=== PATIENT | male | born 1940 | race Caucasian/White ===

== ENCOUNTER → 2018-02-12 10:03 | Outpatient (CLI) | payer BC, SELFPAY ==
--- NOTE | 2018-02-12 10:08 | ECHOTEE_ITS ---
Reason For Study: Aortic Stenosis Medication MARY probe passed without difficulty. No complications were noted. [id number] gargled and swallowed. Cetacaine Topical [place] given X2 orally. Versed 2 mg given slow IVP. Fentanyl 25 mcg given slow IVP. Performed a rapid injection of agitated mix of 9 cc saline and 1cc air to assess for atrial septal defect. Left Ventricle Mild concentric left ventricular hypertrophy. The estimated ejection fraction is 65 %. Stage 1 diastolic dysfunction. No regional wall motion abnormalities noted. Right Ventricle Normal size and thickness. The right ventricular wall motion is normal. Atria Normal atrial septum. Bubble contrast study negative for right to left interatrial shunt. Normal left atrium. No thrombus is detected in the left atrial appendage. Normal right atrium. Mitral Valve Mild diffuse mitral valve thickening. Mild (1+) posteriorly directed mitral valve insufficiency. Tricuspid Valve Normal tricuspid valve. Trivial tricuspid valve insufficiency. Unable to estimate RV systolic pressure/pulmonary artery pressure due to technically difficult study. Aortic Valve Trisinus/trileaflet aortic valve. Severe focal aortic valve thickening. Moderate focal aortic valve calcification. Severe restriction of the aortic valve. Severe aortic stenosis. Peak aortic valve gradient 61 mmHg. Mean aortic valve gradient 37 mmHg. Trivial aortic valve insufficiency. Pulmonic Valve Normal pulmonic valve. Vessels Calcified aortic root. Mild atherosclerosis of the aortic arch. The pulmonary artery is normal size. Pulmonary venous flow normal. Doppler Measurements & Calculations MV E max rell: 88.8 cm/sec MV V2 max: 116.2 cm/sec Ao V2 max: 370.3 cm/sec MV max P.4 mmHg Ao V2 mean: 261.8 cm/sec MV V2 mean: 70.3 cm/sec Ao V2 VTI: 87.3 cm MV mean P.3 mmHg MV V2 VTI: 24.1 cm Interpretation Summary Mild concentric left ventricular hypertrophy. The estimated ejection fraction is 65 %. Stage 1 diastolic dysfunction. Bubble contrast study negative for right to left interatrial shunt. Mild (1+) posteriorly directed mitral valve insufficiency. Trivial tricuspid valve insufficiency. Unable to estimate RV systolic pressure/pulmonary artery pressure due to technically difficult study. Severe aortic stenosis. Peak aortic valve gradient 61 mmHg. Mean aortic valve gradient 37 mmHg. Trivial aortic valve insufficiency. No thrombus is detected in the left atrial appendage. Ordering Physician: Tanvir Lyles Referring Physician: Vidal Adams Performed By: Bonita Toney RDCS ??? Reason For Study: Aortic Stenosis Interpretation Summary Mild concentric left ventricular hypertrophy. The estimated ejection fraction is 65 %. Stage 1 diastolic dysfunction. Bubble contrast study negative for right to left interatrial shunt. Mild (1+) posteriorly directed mitral valve insufficiency. Trivial tricuspid valve insufficiency. Unable to estimate RV systolic pressure/pulmonary artery pressure due to technically difficult study. Severe aortic stenosis. Peak aortic valve gradient 61 mmHg. Mean aortic valve gradient 37 mmHg. Trivial aortic valve insufficiency. No thrombus is detected in the left atrial appendage. Ordering Physician: Tanvir Lyles Referring Physician: Vidal Adams Performed By: Bonita Toney RDCS
== END ==
PROVIDERS: Family Provider Family Medicine; PCP Family Medicine; Visit Provider Internal Medicine Cardiovascular Disease
DX: I35.0 Nonrheumatic aortic (valve) stenosis (principal); I25.10 Atherosclerotic heart disease of native coronary artery without angina pectoris; E78.5 Hyperlipidemia, unspecified
CPT/HCPCS: 93312; 93320; 93325; A4216; J2310

== ENCOUNTER 2018-03-07 14:31 | Emergency (ER) | payer BC, SELFPAY ==
[2018-03-07 14:33] VITALS: BP 160/82; PULSE 87; RESP 18; TEMP 36.6; O2SAT 94; BMI 25.6
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
--- NOTE | 2018-03-07 14:45 | RAD_ITS ---
STUDY: X-RAY - LEFT SHOULDER REASON FOR EXAM: Shoulder pain after a fall. TECHNIQUE: 4 view(s) of the shoulder. COMPARISON: None. FINDINGS: There is osteopenia. Normal glenohumeral articulation. Normal acromioclavicular joint. Normal acromion. There is a nondisplaced fracture of the distal clavicle. Normal humeral head and visualized proximal humerus. There is soft tissue swelling at the superior aspect of the shoulder. There is atelectasis or scarring left lung base. RAD/Shoulder min 2 Views IMPRESSION: Nondisplaced fracture of the distal clavicle. Electronically Signed: Brad Sampson MD at 15:48 EDT Tel , Service support ,
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
[2018-03-07 17:09] VITALS: PULSE 79; RESP 17; O2SAT 96
== END 2018-03-07 17:10 | disposition home or self-care (01) ==
PROVIDERS: Emergency Provider Emergency Medicine; Family Provider Family Medicine; PCP Family Medicine
DX: S42.035A Nondisplaced fracture of lateral end of left clavicle, initial encounter for closed fracture (principal); S01.81XA Laceration without foreign body of other part of head, initial encounter; S20.212A Contusion of left front wall of thorax, initial encounter; V19.3XXA Pedal cyclist (driver) (passenger) injured in unspecified nontraffic accident, initial encounter; Y93.55 Activity, bike riding; Y92.9 Unspecified place or not applicable; I25.10 Atherosclerotic heart disease of native coronary artery without angina pectoris; Z79.82 Long term (current) use of aspirin; Z79.899 Other long term (current) drug therapy
CPT/HCPCS: 71101; 72070; 73030; 99284

== ENCOUNTER → 2018-06-13 15:41 | Outpatient (CLI) | payer BC, SELFPAY ==
[2018-06-13 14:36] VITALS: BMI 24.4
[2018-06-13 16:15] LABS: Prothrombin Time (Protime)PT. 45.3 SECONDS (11.7-14.9)
[2018-06-13 16:28] LABS: International Normalized Ratio 4.8
== END ==
PROVIDERS: Family Provider Family Medicine; PCP Family Medicine; Referring Provider Internal Medicine Cardiovascular Disease; Visit Provider Internal Medicine Cardiovascular Disease
DX: I48.91 Unspecified atrial fibrillation (principal)
CPT/HCPCS: 36415; 85610

== ENCOUNTER 2018-06-23 08:06 | Outpatient (RCR) | payer BC, SELFPAY ==
[2018-06-13 14:36] VITALS: BMI 24.4
[2018-06-16 11:52] LABS: International Normalized Ratio 2.2; Prothrombin Time (Protime)PT. 24.8 SECONDS (11.7-14.9)
[2018-06-23 09:28] LABS: International Normalized Ratio 3.1; Prothrombin Time (Protime)PT. 32.5 SECONDS (11.7-14.9)
== END 2018-06-27 10:56 | disposition home or self-care (01) ==
LOC: LAB 08:06
PROVIDERS: Family Provider Family Medicine; PCP Family Medicine; Referring Provider Internal Medicine Cardiovascular Disease; Visit Provider Internal Medicine Cardiovascular Disease
DX: I48.91 Unspecified atrial fibrillation (principal)
CPT/HCPCS: 36415; 85610

== ENCOUNTER → 2018-07-02 08:46 | Outpatient (CLI) | payer BC, SELFPAY ==
[2018-06-13 14:36] VITALS: BMI 24.4
--- NOTE | 2018-07-02 08:54 | PCM.CR.HP2 ---
CR - History & Physical - General Arrival date:: 07/02/18 Arrival time:: 08:54 Date of Referral:: 06/13/18 Date of CR Evaluation:: 07/02/18 Referring Physician: Dr. Tanvir Lyles Primary Diagnosis: CABG, Valve replacement, Z95.1, Z95.2 - History of Present Cardiac Event Onset Date: Enter Onset Date of cardiac illnesses in Comment field below Current stable Angina Pectoris:: No Acute Myocardial Infarction within 12 months:: No Coronary Artery Bypass Graft:: Yes Heart valve replacement or repair:: Yes - Medications Home Medications: Ambulatory Orders Medication Instructions Recorded aspirin 81 mg tablet,delayed 81 mg PO QDAY 01/20/18 release acetaminophen 325 mg tablet 650 mg PO Q6H PRN tab 06/12/18 albuterol sulfate HFA 90 2 puff INHALATION Q6H PRN 06/12/18 mcg/actuation aerosol inhaler amiodarone 200 mg tablet 200 mg PO .COMPLEX 06/12/18 fluticasone 250 mcg-salmeterol 50 1 inh INHALATION BID 06/12/18 mcg/dose blistr powdr for inhalation multivitamin tablet 1 tab PO DAILY 06/12/18 sennosides 8.6 mg-docusate sodium 1 tab PO BID PRN 06/12/18 50 mg tablet furosemide 20 mg tablet 20 mg PO BID #180 tab 06/25/18 potassium chloride ER 10 mEq 10 meq PO DAILY #90 tab 06/25/18 tablet,extended release warfarin 5 mg tablet 5 mg PO .COMPLEX #90 tab 06/25/18 metoprolol tartrate 25 mg tablet 50 mg PO BID #180 tab 06/30/18 pantoprazole 20 mg tablet,delayed 20 mg PO DAILY #30 tab 06/30/18 release pravastatin 40 mg tablet 40 mg PO DAILY #90 tab 06/30/18 - Allergies Allergies/Adverse Reactions: Allergies atorvastatin Adverse Reaction (Verified 03/07/18 14:33) myalgias - Sleep Disorder Evaluation Hx of Sleep Apnea: No Do you snore loudly (louder than talking or can be heard through closed doors)?: No Do you often feel tired/ fatigued/ sleepy during daytime?: No Has anyone observed you stop breathing during sleep?: No History of Hypertension (for STOP score): Yes STOP Results: Negative Advanced Directives - Advanced Directives Power of Placement Assistant: No Living Will: Yes Advance Directives Information Provided: No Advance Directives on File: No DNR Order?:: No Past Medical History - Past Medical Illness Medical History: Past Medical History (Last Reviewed 06/13/18 @ 14:36 by Joan Charles) Tachy-raissa syndrome (Acute) Onset Date: 05/24/18 I49.5 Noted on discharge summary from [facility] after CABG and AVR Atelectasis (Acute) J98.11 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) I97.89, I48.91 History of aortic stenosis (Chronic) Z86.79 ROSA to LAD, reverse SVG to OM and PDA of RCA along with AVR using 25 Andrew Awan valve, per Dr. 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 Darrion Meyer, [facility] S/P CABG x 3 (Chronic) Onset Date: 05/22/18 Z95.1 ROSA to LAD, reverse SVG to OM and PDA of RCA along with AVR using 25 Andrew Awan valve, per Dr. Darrion Meyer, [facility] History of open reduction and internal fixation (ORIF) procedure Z98.890 RLE History of inguinal hernia repair Z98.890, Z87.19 History of left heart catheterization Onset Date: 09/18/17 Z98.890 LMT-30-40% ostial stenosis Mid LAD 60-70% stenosis Mid Cx 50% Stenosis RCA 100% WOOLEN TESTER after mid portion w/ left-right collaterals Social History - Smoking History Smoking Status: Former smoker Years Smokin Packs Smoked per Day: 0.5 Hx Smoking Cessation Date: 07/29/2009 Hx Tobacco Use: Yes Hx Smoking Exposure: Yes - Alcohol Use Alcohol Usage: No - Substance Abuse Hx Substance Use: No - Occupation Occupation (List type of work in comments):: Employed Hours worked per day:: 10 - Hobbies, Recreation, Social Activities Hobbies: Other - hunting Recreational Activities: I am able to engage in all my recreational activities Social Environment - Status Marital Status: - Current Living Arrangements Living Environment:: Family - Children Do any of your children live nearby?: Yes - Safety Do you feel safe in your surroundings?: Yes - Assistance Do you need any assistance at home?: none Review of Systems - Review of Systems Hints: Right click = Denies ([place]). Left click = Reports ([place]) Review of Present Symptoms: Reports: Shortness of Breath with Exertion, Appetite - Normal, Sleep - Normal. Denies: Shortness of Breath at Rest, PVD, Operative Discomfort, Angina, Wound Healing, Dizziness/Lightheadedness, Fatigue, Heart Arrhythmia/Irregularities, Appetite - Special Diet, Sexual Changes - Pain Is Patient Pain Free?: Yes Risk Factor Assessment - Chief Complaint Chief Complaint: CABG, Valve repair/replacement - Vital Signs Pulse Ox: 91 - Pulse Pulse Rate: 56 Pulse Rhythm: Regular - Hypertension How long have you been treated?: .5 Blood Pressure Sitting - Left Arm: 114/58 - Obesity Height: 1.7 m Weight:: 70.76 kg Weight in Pounds: 156.0 lbs Weight Source: Standing Scale Body Mass Index (BMI): 24.4 Nutritional Referral for Obesity: No - Physical Inactivity Physical Inactivity: Reg Exercise 30 min/day, Physically demanding job, Recreational activity, None - Risk Stratification Risk Guidelines: Lowest Risk: Risk Factor for Diabetes, Risk Factor for Obesity, Moderate Risk: Risk Factor for Smoking, Risk Factor for Dyslipidemia, Risk Factor for Diabetes, Risk Factor for Hypertension, Risk Factor for Sedentary Lifestyle, Risk Factor for Depression - For Smoking Smoking Risk Guidelines: Smoking Low Risk: None or quit greater than 6 months ago. Smoking Moderate Risk: Smoker or quit 6 months or less ago. Smoking High Risk: Smoker - For Dyslipidemia Dyslipidemia Risk Guidelines: Low Risk: Moderate Risk: High Risk: 15-25% fat 25.1-29% fat >/= 30% fat. <7% sat fat 7-9% sat fat >9% sat fat. <150 mg chol 150-299 mg chol >/= 300 mg chol. LDL <100 LDL 100-129 LDL >/= 130. Chol/HDL ratio <5.0 Chol/HDL ratio 5.0-6.0 Chol/HDL ratio >6.0. Triglycerides <100 Triglycerides 100-149 Triglycerides >/= 150 - For Diabetes Mellitus Diabetes Risk Guidelines: Diabetes Low Risk: HgA1c <6.5% and/or FBG <120. Diabetes Moderate Risk: HgA1c 6.6-7.9% and/or FBG 120-180. Diabetes High Risk: HgA1c >/= 8% and/or FBG >180 - For Obesity/Overweight Obesity/Overweight Risk Guidelines: Obesity Low Risk: BMI <25.0. Obesity Moderate Risk: BMI 25-29.9. Obesity High Risk: BMI >/= 30.0 - For Hypertension Hypertension Risk Guidelines: Hypertension Low Risk: Systolic <120 and Diastolic <80. Hypertension Moderate Risk: Systolic 120-139 and Diastolic 80-89. Hypertension High Risk: Systolic >/= 140 and Diastolic >/= 90 - For Sedentary Lifestyle Sedentary Lifestyle Risk Guidelines: Sedentary Lifestyle Low Risk: >/= 1,500 kcal/week. Sedentary Lifestyle Moderate Risk: 700-1,499 kcal/week. Sedentary Lifestyle High Risk: < 700 kcal/week - For Depression Depression Risk Guidelines: Depression Low Risk: Not clinically depressed. Depression Moderate Risk: Mildly depressed. Depression High Risk: Clinically depressed Motivation - Motivation to Participate On a scale of 1 to 10, how prepared are you to commit to attending program?: 8 What do you see as barriers to successfully being able to complete the program?: transportation What do you see as the benefits of succesfully completing the program? In other words, what do you hope to get out of participating in the program?: improved health Are there issues you are dealing with that will interfere with completing the program?: none Do you have a spouse or signficant other, family or friends who will help support you to complete the program?: yes
--- NOTE | 2018-07-02 08:58 | CR.HP_ITS ---
CR - History & Physical - General Arrival date:: 07/02/18 Arrival time:: 08:54 Date of Referral:: 06/13/18 Date of CR Evaluation:: 07/02/18 Referring Physician: Dr. Tanvir Lyles Primary Diagnosis: CABG, Valve replacement, Z95.1, Z95.2 - History of Present Cardiac Event Onset Date: Enter Onset Date of cardiac illnesses in Comment field below Current stable Angina Pectoris:: No Acute Myocardial Infarction within 12 months:: No Coronary Artery Bypass Graft:: Yes Heart valve replacement or repair:: Yes - Medications Home Medications: Ambulatory Orders Medication Instructions Recorded aspirin 81 mg tablet,delayed 81 mg PO QDAY 01/20/18 release acetaminophen 325 mg tablet 650 mg PO Q6H PRN tab 06/12/18 albuterol sulfate HFA 90 2 puff INHALATION Q6H PRN 06/12/18 mcg/actuation aerosol inhaler amiodarone 200 mg tablet 200 mg PO .COMPLEX 06/12/18 fluticasone 250 mcg-salmeterol 50 1 inh INHALATION BID 06/12/18 mcg/dose blistr powdr for inhalation multivitamin tablet 1 tab PO DAILY 06/12/18 sennosides 8.6 mg-docusate sodium 1 tab PO BID PRN 06/12/18 50 mg tablet furosemide 20 mg tablet 20 mg PO BID #180 tab 06/25/18 potassium chloride ER 10 mEq 10 meq PO DAILY #90 tab 06/25/18 tablet,extended release warfarin 5 mg tablet 5 mg PO .COMPLEX #90 tab 06/25/18 metoprolol tartrate 25 mg tablet 50 mg PO BID #180 tab 06/30/18 pantoprazole 20 mg tablet,delayed 20 mg PO DAILY #30 tab 06/30/18 release pravastatin 40 mg tablet 40 mg PO DAILY #90 tab 06/30/18 - Allergies Allergies/Adverse Reactions: Allergies atorvastatin Adverse Reaction (Verified 03/07/18 14:33) myalgias - Sleep Disorder Evaluation Hx of Sleep Apnea: No Do you snore loudly (louder than talking or can be heard through closed doors)?: No Do you often feel tired/ fatigued/ sleepy during daytime?: No Has anyone observed you stop breathing during sleep?: No History of Hypertension (for STOP score): Yes STOP Results: Negative Advanced Directives - Advanced Directives Power of Automotive Artist: No Living Will: Yes Advance Directives Information Provided: No Advance Directives on File: No DNR Order?:: No Past Medical History - Past Medical Illness Medical History: Past Medical History (Last Reviewed 06/13/18 @ 14:36 by Joan Charles) Tachy-raissa syndrome (Acute) Onset Date: 05/24/18 I49.5 Noted on discharge summary from [facility] after CABG and AVR Atelectasis (Acute) J98.11 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) I97.89, I48.91 History of aortic stenosis (Chronic) Z86.79 ROSA to LAD, reverse SVG to OM and PDA of RCA along with AVR using 25 Andrew Awan valve, per Dr. 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 Darrion Meyer, [facility] S/P CABG x 3 (Chronic) Onset Date: 05/22/18 Z95.1 ROSA to LAD, reverse SVG to OM and PDA of RCA along with AVR using 25 Andrew Awan valve, per Dr. Darrion Meyer, [facility] History of open reduction and internal fixation (ORIF) procedure Z98.890 RLE History of inguinal hernia repair Z98.890, Z87.19 History of left heart catheterization Onset Date: 09/18/17 Z98.890 LMT-30-40% ostial stenosis Mid LAD 60-70% stenosis Mid Cx 50% Stenosis RCA 100% [employer] WORK[employer] after mid portion w/ left-right collaterals Social History - Smoking History Smoking Status: Former smoker Years Smokin Packs Smoked per Day: 0.5 Hx Smoking Cessation Date: 07/29/2009 Hx Tobacco Use: Yes Hx Smoking Exposure: Yes - Alcohol Use Alcohol Usage: No - Substance Abuse Hx Substance Use: No - Occupation Occupation (List type of work in comments):: Employed Hours worked per day:: 10 - Hobbies, Recreation, Social Activities Hobbies: Other - hunting Recreational Activities: I am able to engage in all my recreational activities Social Environment - Status Marital Status: - Current Living Arrangements Living Environment:: Family - Children Do any of your children live nearby?: Yes - Safety Do you feel safe in your surroundings?: Yes - Assistance Do you need any assistance at home?: none Review of Systems - Review of Systems Hints: Right click = Denies ([place]). Left click = Reports ([place]) Review of Present Symptoms: Reports: Shortness of Breath with Exertion, Appetite - Normal, Sleep - Normal. Denies: Shortness of Breath at Rest, PVD, Operative Discomfort, Angina, Wound Healing, Dizziness/Lightheadedness, Fatigue, Heart Arrhythmia/Irregularities, Appetite - Special Diet, Sexual Changes - Pain Is Patient Pain Free?: Yes Risk Factor Assessment - Chief Complaint Chief Complaint: CABG, Valve repair/replacement - Vital Signs Pulse Ox: 91 - Pulse Pulse Rate: 56 Pulse Rhythm: Regular - Hypertension How long have you been treated?: .5 Blood Pressure Sitting - Left Arm: 114/58 - Obesity Height: 1.7 m Weight:: 70.76 kg Weight in Pounds: 156.0 lbs Weight Source: Standing Scale Body Mass Index (BMI): 24.4 Nutritional Referral for Obesity: No - Physical Inactivity Physical Inactivity: Reg Exercise 30 min/day, Physically demanding job, Recreational activity, None - Risk Stratification Risk Guidelines: Lowest Risk: Risk Factor for Diabetes, Risk Factor for Obesity, Moderate Risk: Risk Factor for Smoking, Risk Factor for Dyslipidemia, Risk Factor for Diabetes, Risk Factor for Hypertension, Risk Factor for Sedentary Lifestyle, Risk Factor for Depression - For Smoking Smoking Risk Guidelines: Smoking Low Risk: None or quit greater than 6 months ago. Smoking Moderate Risk: Smoker or quit 6 months or less ago. Smoking High Risk: Smoker - For Dyslipidemia Dyslipidemia Risk Guidelines: Low Risk: Moderate Risk: High Risk: 15-25% fat 25.1-29% fat >/= 30% fat. <7% sat fat 7-9% sat fat >9% sat fat. <150 mg chol 150-299 mg chol >/= 300 mg chol. LDL <100 LDL 100-129 LDL >/= 130. Chol/HDL ratio <5.0 Chol/HDL ratio 5.0-6.0 Chol/HDL ratio >6.0. Triglycerides <100 Triglycerides 100-149 Triglycerides >/= 150 - For Diabetes Mellitus Diabetes Risk Guidelines: Diabetes Low Risk: HgA1c <6.5% and/or FBG <120. Diabetes Moderate Risk: HgA1c 6.6-7.9% and/or FBG 120-180. Diabetes High Risk: HgA1c >/= 8% and/or FBG >180 - For Obesity/Overweight Obesity/Overweight Risk Guidelines: Obesity Low Risk: BMI <25.0. Obesity Moderate Risk: BMI 25-29.9. Obesity High Risk: BMI >/= 30.0 - For Hypertension Hypertension Risk Guidelines: Hypertension Low Risk: Systolic <120 and Diastolic <80. Hypertension Moderate Risk: Systolic 120-139 and Diastolic 80-89. Hypertension High Risk: Systolic >/= 140 and Diastolic >/= 90 - For Sedentary Lifestyle Sedentary Lifestyle Risk Guidelines: Sedentary Lifestyle Low Risk: >/= 1,500 kcal/week. Sedentary Lifestyle Moderate Risk: 700-1,499 kcal/week. Sedentary Lifestyle High Risk: < 700 kcal/week - For Depression Depression Risk Guidelines: Depression Low Risk: Not clinically depressed. Depression Moderate Risk: Mildly depressed. Depression High Risk: Clinically depressed Motivation - Motivation to Participate On a scale of 1 to 10, how prepared are you to commit to attending program?: 8 What do you see as barriers to successfully being able to complete the program?: transportation What do you see as the benefits of succesfully completing the program? In other words, what do you hope to get out of participating in the program?: improved health Are there issues you are dealing with that will interfere with completing the program?: none Do you have a spouse or signficant other, family or friends who will help support you to complete the program?: yes
--- NOTE | 2018-07-02 09:02 | CR.ITP_ITS ---
General Information - General Information Admitting Diagnosis: CABG, Valve repair replace - Education/Goals Barriers to Learning: None Cardiac Rehabilitation Goals: 1. Maintain the individual as the primary focus of care. 2. To improve the patient's quality of life. 3. Identification of cardiac risk factors and provide cardiac risk factor management. 4. Enhance the psychosocial status of the patient. 5. Reconditioning enough to allow the patient to resume customary activities. 6. Control symptoms of cardiac disease Scale for measuring improvement of personal goals: Enter appropriate number in Comments. 2 = Unchanged. 3 = Slightly Better. 4 = Moderate Improvement. 5 = Met my Goal Personal Goals: Initial Assessment: Participate in home exercise program, Get back to work, or to resume activities faster Exercise - Initial Assessment - Visit Date of Eval: 07/02/18 - initial eval - Stages of Change Stages of Change:: Contemplate - Exercise Prescription Mode:: Treadmill, Biodyne, Airdyne, NuStep, Arm Ergometer Angina with exercise?: No Target Heart Rate:: 100-108 - Hypertension Do any of the following apply?: Yes Resting Blood Pressure:: 114/58 - Intervention Home Exercise/Activity Goal:: Sitting Time <3 hrs/day - Education Goals:: Warm-up, RPE GALO Scale, S/S, Safe Exercise, Self-Monitoring - Exercise Program Goals Exercise Program Goals: Aerobic Activity >30 min, B/P <130/80 Nutrition - Initial Assessment - Program Goals Nutrition Program Goals: LDL <70. Total Cholesterol <200. HDL >45. Triglycerides <150. HgbA1C <7%. BMI <25 - Visit Date of Assessment:: 07/02/18 - Stages of Change Stages of Change:: Contemplate - Diabetes Diabetes:: No Insulin: No Non-Insulin Dependent?: No Do you monitor your blood sugar at home?: No - Weight Management Height: 1.7 m Weight:: 70.76 kg Total Score:: 0 - Intervention Referral to dietitian:: No Referral to Diabetic Clinic:: No Will attend diet classes:: Yes - Education Gave educational materials for:: Signs & symptoms of hypoglycemia, Signs & symptoms of hyperglycemia, Relate diabetes to coronary artery disease, Healthy eating Tobacco - Initial Assessment - Program Goals Tobacco Program Goals: Complete smoking cessation. Attend education classes. Improve Knowledge Test score - Stage of Change Stages of Change:: Contemplate - Learning Barriers Total Score:: 7 - Family Support Do you have family support?: Yes - Tobacco Use Tobacco Use: Non-smoker How long ago did you quit using tobacco products?: Greater than or equal to 6 months ago Do you use smokeless tobacco?: No - Intervention Smoking Cessation Referral:: No Education Schedule Given:: Yes - Education Gave educational material for:: Tobacco triggers, Coronary artery disease, Risk factors, Sexuality, Medical compliance, Cardiac A&P, Angina signs & symptoms Psychosocial - Initial Assess - Target Goals Target Goals: Assess presence or absence of depression. Using a valid screening tool, maximizes coping skills. Positive support system - Stages of Change Stages of Change:: Action - Psychosocial Test Tool Used:: HANDS Depression Questionnaire Total Mood Screening Score:: 2 Self-Efficacy Score:: 8 - Intervention PS - Interventions: Yes Attend Stress Management Classes, Yes Uses Stress Management Skills, No Referral to Mental Health, No Referral to [facility] Case Management, No Referral to Physician - Education Gave educational materials for:: Coping techniques, Signs & symptoms of depression, Stress management, Relaxation techniques - Assistive Devices Assistive Devices:: None Fall Risk Assessed:: Yes Patient Health Questionnaire Initial Assessment 1. Little interest or pleasure in doing things: Not at all 2. Feeling down, depressed, or hopeless: Not at all 3. Trouble falling or staying asleep, or sleeping too much: More than half the days 4. Feeling tired or having little energy: Not at all 5. Poor appetite or overeating: Not at all 6. Feeling bad about yourself -- or that you are a failure or have let yourself or your family down: Not at all 7. Trouble concentrating on things, such as reading the newspaper or watching television: Not at all 8. Moving or speaking so slowly that other people could have noticed. Or the opposite - being so fidgety or restless that you have been moving around a lot more than usual: Not at all 9. Thoughts that you would be better off , or of hurting yourself in some way: Not at all How difficult have these problems made it for you to do your work, take care of things at home, or get along with other people?: Not difficult at all Total Score: 2 CHARLI-Q SV Test - Statements CAD is a disease of the arteries in the heart: I Don't Know Examples of risk factors for heart disease: True Angina is chest pain or discomfort: True The benefits of resistance training include: False Eating more meat and dairy products: False Anti-platelet medications such as aspirin are important: I Don't Know The only effective way to manage stress: False An exercise warm-up slowly increases heart rate: True Prepared, processed foods usually have high sodium: I Don't Know Depression is common after a heart attack: False The statin medications lower cholesterol: True To control blood pressure, lower the amount of sodium: False If someone gets chest discomfort during walking: True Transfats are partially hydrogenated vegetable oils: I Don't Know Sleep apnea that is not treated increases the risk: I Don't Know To control cholesterol, one should become a vegetarian: I Don't Know Someone knows if he/she is exercising at the right level: I Don't Know Diabetes cannot be prevented with exercise & health eating: I Don't Know Stress is a large risk for heart attack: I Don't Know A diet that can help lower blood pressure is rich in: True - Total Score Total Correct Responses: 7 Self-Efficacy Initial Assessment We would like to know how confident you are in doing certain activities. Please select your confidence level for:: Select your confidence level for the following using the scale 1-10 where 1 is not at all confident and 10 is totally confident. Your score is the average of all 6 responses. Fatigue: How confident are you that you can keep the fatigue caused by your disease from interfering with the things you want to do? Select Number: 8 Physical Discomfort or Pain: How confident are you that you can keep the physical discomfort or pain of your disease from interfering with the things you want to do? Select Number: 8 Emotional Distress: How confident are you that you can keep the emotional distress caused by your disease from interfering with the things you want to do? Select Number: 8 Other Symptoms or Health Problems: How confident are you that you can keep other symptoms or health problems from interfering with the things you want to do? Select Number: 8 Different Tasks and Activities: How confident are you that you can do the different tasks and activities needed to manage your health condition so as to reduce your need to see a doctor? Select Number: 8 Medication: How confident are you that you can do things other than just taking medication to reduce how much your illness affects your everyday life? Select Number: 8 Total Score:: 8 Nutrition Survey - Nutrition Survey Instructions Scoring Instructions: Scoring is as follows: Yes = 1 points. No = 0 point. Patient score that is >/=12 is considered to be at potential nutritional risk and could benefit from a referral to a registered dietitian. - Nutrition Survey Initial Have you lost >10 lbs over the past 2 months without trying?: No Are you following a special diet at home for diabetes, low fat, or low salt?: No Are you interested in meeting with a dietitian for help understanding your diet?: No Do you eat less than 3 meals a day?: No Do you eat fatty meats (adams, sausage, ribs, etc), fried foods, desserts, large amounts of salad dressings, margarine, butter, or cheese most days?: No Do you have food allergies? [Enter types in comment field]: No Do you eat in restaurants more than 3 times a week?: No Do you season food with salt, seasoning salt, or garlic salt?: No Do you used canned, boxed, frozen meals, or soups, seasoning packets?: No Total Score:: 0
[2018-07-02 10:19] VITALS: BP 114/58; PULSE 56; O2SAT 91; BMI 24.4
== END ==
PROVIDERS: Family Provider Family Medicine; PCP Family Medicine; Referring Provider Internal Medicine Cardiovascular Disease; Visit Provider Internal Medicine Cardiovascular Disease
DX: I21.09 ST elevation (STEMI) myocardial infarction involving other coronary artery of anterior wall (principal); I25.110 Atherosclerotic heart disease of native coronary artery with unstable angina pectoris; Z95.5 Presence of coronary angioplasty implant and graft

== ENCOUNTER 2018-07-16 10:01 | Outpatient (RCR) | payer BC, SELFPAY ==
[2018-06-13 14:36] VITALS: BMI 24.4
[2018-07-02 10:31] LABS: International Normalized Ratio 3.3; Prothrombin Time (Protime)PT. 33.9 SECONDS (11.7-14.9)
[2018-07-16 12:03] LABS: Prothrombin Time (Protime)PT. 22.9 SECONDS (11.7-14.9)
== END 2018-07-16 11:01 | disposition home or self-care (01) ==
LOC: LAB 10:01
PROVIDERS: Family Provider Family Medicine; PCP Family Medicine; Referring Provider Internal Medicine Cardiovascular Disease; Visit Provider Internal Medicine Cardiovascular Disease
DX: I48.91 Unspecified atrial fibrillation (principal)
CPT/HCPCS: 36415; 85610

== ENCOUNTER 2018-07-28 10:15 | Outpatient (RCR) | payer BC, SELFPAY ==
[2018-07-02 10:10] VITALS: BMI 24.4
--- NOTE | 2018-07-30 08:02 | PCM.CR.ITP ---
General Information - General Information Admitting Diagnosis: CABG, Valve repair replace - Education/Goals Cardiac Rehabilitation Goals: 1. Maintain the individual as the primary focus of care. 2. To improve the patient's quality of life. 3. Identification of cardiac risk factors and provide cardiac risk factor management. 4. Enhance the psychosocial status of the patient. 5. Reconditioning enough to allow the patient to resume customary activities. 6. Control symptoms of cardiac disease Scale for measuring improvement of personal goals: Enter appropriate number in Comments. 2 = Unchanged. 3 = Slightly Better. 4 = Moderate Improvement. 5 = Met my Goal Exercise - Final/Discharge - Visit Date of Eval: 07/30/18 - discharge ITP Session #:: 9 - Stages of Change Stages of Change:: Action - Exercise Prescription Mode:: Treadmill, Airdyne, NuStep Frequency (x/week): 3 Duration:: 35 METs: 3.7 Target Heart Rate:: 100-108 Max HR 80 - Intervention Home Exercise/Activity Goal:: Moderate Exercise 30 min/day x 5 days/wk - Education Goal Progress: Progressing - Exercise Program Goals Exercise Program Goals: Aerobic Activity >30 min, B/P <130/80 Nutrition - Initial Assessment - Program Goals Nutrition Program Goals: LDL <70. Total Cholesterol <200. HDL >45. Triglycerides <150. HgbA1C <7%. BMI <25 - Diabetes Do you monitor your blood sugar at home?: No Nutrition - Final Assessment - Program Goals Nutrition Program Goals: LDL <70. Total Cholesterol <200. HDL >45. Triglycerides <150. HgbA1C <7%. BMI <25 - Visit Date of Eval: 07/30/18 - Stages of Change Stages of Change:: Action - Weight Management Weight:: 71.441 kg - Intervention Referral to dietitian:: No Referral to Diabetic Clinic:: No Will attend diet classes:: Yes Tobacco - Final Assessment - Program Goals Tobacco Program Goals: Complete smoking cessation. Attend education classes. Improve Knowledge Test score - Stage of Change Stages of Change:: Action - Family Support Do you have family support?: Yes - Tobacco Use Tobacco Use: Non-smoker Do you use smokeless tobacco?: No - Intervention Smoking Cessation Referral:: No Individual Education/Counseling:: No Education Schedule Given:: Yes Psychosocial - Initial Assess - Target Goals Target Goals: Assess presence or absence of depression. Using a valid screening tool, maximizes coping skills. Positive support system - Psychosocial Test Tool Used:: HANDS Depression Questionnaire - Assistive Devices Fall Risk Assessed:: Yes Psychosocial - Final Assessmen - Target Goals Target Goals: Assess presence or absence of depression. Using a valid screening tool, maximizes coping skills. Positive support system - Stages of Change Stages of Change:: Action - Psychosocial Test Tool Used:: HANDS Depression Questionnaire - Intervention PS - Interventions: Yes Attend Stress Management Classes, Yes Uses Stress Management Skills, No Referral to Mental Health, No Referral to [facility] Case Management, No Referral to Physician - Assistive Devices Assistive Devices:: None Fall Risk Assessed:: Yes Patient Health Questionnaire Discharge Assessment 1. Little interest or pleasure in doing things: Not at all 2. Feeling down, depressed, or hopeless: Not at all 3. Trouble falling or staying asleep, or sleeping too much: More than half the days 4. Feeling tired or having little energy: Not at all 5. Poor appetite or overeating: Not at all 6. Feeling bad about yourself -- or that you are a failure or have let yourself or your family down: Not at all 7. Trouble concentrating on things, such as reading the newspaper or watching television: Not at all 8. Moving or speaking so slowly that other people could have noticed. Or the opposite - being so fidgety or restless that you have been moving around a lot more than usual: Not at all 9. Thoughts that you would be better off , or of hurting yourself in some way: Not at all How difficult have these problems made it for you to do your work, take care of things at home, or get along with other people?: Not difficult at all Total Score: 2 CHARLI-Q SV Test - Statements CAD is a disease of the arteries in the heart: I Don't Know Examples of risk factors for heart disease: True Angina is chest pain or discomfort: True The benefits of resistance training include: False Eating more meat and dairy products: False Anti-platelet medications such as aspirin are important: I Don't Know The only effective way to manage stress: False An exercise warm-up slowly increases heart rate: True Prepared, processed foods usually have high sodium: I Don't Know Depression is common after a heart attack: False The statin medications lower cholesterol: True To control blood pressure, lower the amount of sodium: False If someone gets chest discomfort during walking: True Transfats are partially hydrogenated vegetable oils: I Don't Know Sleep apnea that is not treated increases the risk: I Don't Know To control cholesterol, one should become a vegetarian: I Don't Know Someone knows if he/she is exercising at the right level: I Don't Know Diabetes cannot be prevented with exercise & health eating: I Don't Know Stress is a large risk for heart attack: I Don't Know A diet that can help lower blood pressure is rich in: True - Total Score Total Correct Responses: 7 Self-Efficacy Discharge Assessment We would like to know how confident you are in doing certain activities. Please select your confidence level for:: Select your confidence level for the following using the scale 1-10 where 1 is not at all confident and 10 is totally confident. Your score is the average of all 6 responses. Fatigue: How confident are you that you can keep the fatigue caused by your disease from interfering with the things you want to do? Select Number: 8 Physical Discomfort or Pain: How confident are you that you can keep the physical discomfort or pain of your disease from interfering with the things you want to do? Select Number: 8 Emotional Distress: How confident are you that you can keep the emotional distress caused by your disease from interfering with the things you want to do? Select Number: 8 Other Symptoms or Health Problems: How confident are you that you can keep other symptoms or health problems from interfering with the things you want to do? Select Number: 8 Different Tasks and Activities: How confident are you that you can do the different tasks and activities needed to manage your health condition so as to reduce your need to see a doctor? Select Number: 8 Medication: How confident are you that you can do things other than just taking medication to reduce how much your illness affects your everyday life? Select Number: 8 Total Score:: 8 Nutrition Survey - Nutrition Survey Instructions Scoring Instructions: Scoring is as follows: Yes = 1 points. No = 0 point. Patient score that is >/=12 is considered to be at potential nutritional risk and could benefit from a referral to a registered dietitian. - Nutrition Survey Discharge Have you lost >10 lbs over the past 2 months without trying?: No Are you following a special diet at home for diabetes, low fat, or low salt?: No Are you interested in meeting with a dietitian for help understanding your diet?: No Do you eat less than 3 meals a day?: No Do you eat fatty meats (adams, sausage, ribs, etc), fried foods, desserts, large amounts of salad dressings, margarine, butter, or cheese most days?: No Do you have food allergies? [Enter types in comment field]: No Do you eat in restaurants more than 3 times a week?: No Do you season food with salt, seasoning salt, or garlic salt?: No Do you used canned, boxed, frozen meals, or soups, seasoning packets?: No Total Score:: 0
== END 2018-07-28 23:59 ==
LOC: CR 10:15
PROVIDERS: Family Provider Family Medicine; PCP Family Medicine; Referring Provider Internal Medicine Cardiovascular Disease; Visit Provider Internal Medicine Cardiovascular Disease
DX: Z95.2 Presence of prosthetic heart valve (principal); Z95.1 Presence of aortocoronary bypass graft; I97.89 Other postprocedural complications and disorders of the circulatory system, not elsewhere classified; I48.91 Unspecified atrial fibrillation; I25.10 Atherosclerotic heart disease of native coronary artery without angina pectoris
CPT/HCPCS: 93798

== ENCOUNTER 2018-08-13 08:19 | Outpatient (RCR) | payer BC, SELFPAY ==
[2018-07-02 10:19] VITALS: BMI 24.4
[2018-08-13 09:44] LABS: International Normalized Ratio 1.8; Prothrombin Time (Protime)PT. 20.9 SECONDS (11.7-14.9)
--- OUTSIDE RECORDS SUMMARY | 2018-10-17 23:12 | XMS RPT_ITS ---
:1940 Author Organization OHIP Support Name Relationship Address Phone ÁNGEL CROWDER Unavailable [address] + [place] [address] GARCIAMARILYNNE Unavailable Unavailable + [place] [address] [employer] Unavailable [address] + [place] [address] ÁNGEL CROWDER Unavailable [address] + [place] [address] BELLA GARCIA Unavailable Unavailable + [place] [address] [employer] Unavailable [address] + [place] [address] VEL ÁNGEL Unavailable [address] + [place] [address] RADHAMARILYNNE Unavailable Unavailable + [place] [address] [employer] Unavailable [address] + [place] [address] ÁNGEL CROWDER Unavailable [address] + [place] [address] RADHA BLANCO Unavailable Unavailable + [place] [address] [employer] Unavailable [address] + [place] [address] ÁNGEL CROWDER Unavailable [address] + [place] [address] RADHA BLANCO Unavailable Unavailable + [place] [address] [employer] Unavailable [address] + [place] [address] ÁNGEL CROWDER Unavailable [address] + [place] [address] BELLA GARCIA Unavailable Unavailable + [place] [address] [employer] Unavailable [address] + [place] [address] GARCIA, YESENIA Unavailable Unavailable + [place] [address] [employer] Unavailable [address] + [place] [address] GARCIA, YESENIA Unavailable . + [place] [address] [employer] Unavailable [address] + [place] [address] GARCIA, YESENIA Unavailable Unavailable + [place] [address] [employer] Unavailable [address] + [place] [address] GARCIA, YESENIA Unavailable Unavailable + [place] [address] [employer] Unavailable [address] + [place] [address] GARCIA, YESENIA Unavailable Unavailable + [place] [address] [employer] Unavailable . +. [place] [address] GARCIA, YESENIA Unavailable Unavailable + [place] [address] [employer] Unavailable [address] + [place] [address] [facility] Unavailable [address] [facility] [address] + [place] [address] [facility] Unavailable [address] [place] [address] [address] + [place] [address] ÁNGEL CROWDER Unavailable [address] + [place] [address] [employer] [employer] Unavailable [address] [facility] [address] + [place] [address] Care Team Providers Name Role Phone Tanvir Lyles Attending Unavailable Tanvir Lyles Referring Unavailable Lucio, Vidal Primary Care Unavailable Tanvir Lyles Attending Unavailable Tanvir Lyles Referring Unavailable Lucio, Vidal Primary Care Unavailable Ksenia Lopez Attending Unavailable Tanvir Lyles Attending Unavailable Lucio, Vidal Referring Unavailable Lucio, Vidal Primary Care Unavailable Tanvir Lyles Attending Unavailable Tanvir Lyles Referring Unavailable Lucio, Vidal Primary Care Unavailable Lucio, Vidal Primary Care Unavailable Stanislaw Putnam Attending Unavailable Tanvir Lyles Attending Unavailable Tanvir Lyles Attending Unavailable Lucio, Vidal Primary Care Unavailable Tanvir Lyles Referring Unavailable Lucio, Vidal Attending Unavailable Tanvir Lyles Attending Unavailable Lucio, Vidal Referring Unavailable Tanvir Lyles Attending Unavailable Rafal, Tanvir Referring Unavailable Lucio, Vidal Primary Care Unavailable Tanvir Lyles Attending Unavailable Tanvir Lyles Referring Unavailable Lucio, Vidal Primary Care Unavailable Tanvir Lyles Attending Unavailable Tanvir Lyles Referring Unavailable Lucio, Vidal Primary Care Unavailable Tanvir Lyles Attending Unavailable Tanvir Lyles Referring Unavailable Lucio, Vidal Primary Care Unavailable ANIBAL CHAVES (PA) Referring Unavailable AMALFITANO KATIE L Attending Unavailable AMALFITANO, KATIE L Referring Unavailable AMALFITANO, KATIE L Referring Unavailable PADMINI SALGADO Admitting Unavailable PADMINI SALGADO Attending Unavailable AMALFITANO, KATIE L Referring Unavailable PADMINI SALGADO Admitting Unavailable PADMINI SALGADO Attending Unavailable VIDAL VALDES Attending Unavailable VIDAL VALDES Referring Unavailable JUNE, ALEX Referring Unavailable JUNE, ALEX Referring Unavailable JUNE, ALEX Referring Unavailable JUNE, ALEX Attending Unavailable JUNE, ALEX Referring Unavailable JUNE, ALEX Referring Unavailable CARLITOSROSALES Attending Unavailable JUNE, ALEX Referring Unavailable JUNE, ALEX Referring Unavailable JUNE, ALEX Referring Unavailable BETTY GANDHI (COLLEGE TUTOR) Attending Unavailable JUNE, ALEX Referring Unavailable JUNE, ALEX Attending Unavailable CARLITOS, MJ Referring Unavailable CARLITOS, ROSALES Villatoro Referring Unavailable CARLITOSROSALES Attending Unavailable CARLITOS, MJ Referring Unavailable CARLITOS, MJ Referring Unavailable CARLITOS, MJ Referring Unavailable CARLITOS, MJ Referring Unavailable CARLITOS, MJ Referring Unavailable CARLITOS, MJ Admitting Unavailable CARLITOSROSALES Attending Unavailable VIDAL VALDES A Attending Unavailable VIDAL VALDES A Referring Unavailable LUCIO, VIDAL A Referring Unavailable LUCIO, VIDAL A Referring Unavailable TRENT BURCIAGA Referring Unavailable KATIE AREVALO Referring Unavailable KATIE AREVALO Referring Unavailable PROBLEMS PROBLEMS DATE TYPE CONDITION / CODE ATTENDING STATUS SOURCE 07/30/2018 Unknown Z95.1 - Presence of Tanvir Lyles Active [place] aortocoronary bypass [facility] graft / Z95.1(ICD-10) Hospital Repository 07/28/2018 Unknown I48.91 - Unspecified Tanvir Lyles Active [place] atrial fibrillation / Community I48.91(ICD-10) Hospital Repository 07/02/2018 Unknown I25.10 - Tanvir Lyles Active [place] Atherosclerotic heart [facility] disease of [place] [facility] coronary artery Repository without angina pectoris / I25.10(ICD-10) 07/02/2018 Unknown Z95.2 - 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 / Z95.2(ICD-10) Hospital Repository 06/04/2018 Active Paroxysmal atrial NA Active [place] fibrillation / [facility] Main I48.0(ICD-10) [place] Repository 06/04/2018 Active Nonrheumatic aortic NA Active [place] (valve) stenosis / [facility] Main I35.0(ICD-10) [facility] Repository 06/04/2018 Active Other specified NA Active [place] anemias / [facility] Main D64.89(ICD-10) [facility] Rep[facility] 06/04/2018 Active 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 / Z95.2(ICD-10) [place] Repository 05/30/2018 Active Other acute ROSALES URBINA Active [place] postprocedural pain / [facility] Main G89.18(ICD-10) [place] Repository 05/30/2018 Active Encounter for ROSALES URBINA Active [place] therapeutic drug [facility] level monitoring / [place] Z51.81(ICD-10) Repository 05/30/2018 Active 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) ROSALES URBINA Active [place] use of anticoagulants Clinic Main / Z79.01(ICD-10) [place] Repository 05/30/2018 Active Acute on chronic ROSALES URBINA Active [place] systolic (congestive) Clinic Main heart failure / [place] I50.23(ICD-10) Repository 05/20/2018 Active Encounter for NA Active [place] preprocedural [facility] Main cardiovascular [place] examination / Repository Z01.810(ICD-10) 11/22/2017 Active Atherosclerotic heart NA Active [place] disease of [place] [facility] Main coronary artery [place] without angina Repository pectoris / I25.10(ICD-10) 11/22/2017 Active Coronary NA Active [place] atherosclerosis due [facility] Main to lipid rich plaque [place] / I25.83(ICD-10) Repository 04/15/2018 Active Nonrheumatic aortic NA Active [place] valve disorder, Clinic Main unspecified / [place] I35.9(ICD-10) Repository 01/21/2018 Unknown E78.5 - Tanvir Lyles Active [place] Hyperlipidemia, Community unspecified / Hospital E78.5(ICD-10) Repository 01/21/2018 Unknown I35.0 - Nonrheumatic Tanvir Lyles Active [place] aortic (valve) Community stenosis / Hospital I35.0(ICD-10) Repository 05/24/2017 Active Hyperlipidemia, NA Active [place] unspecified / Clinic Main E78.5(ICD-10) [place] Repository 11/22/2014 Active Personal history of [facility] nicotine dependence / [facility] Main Z87.891(ICD-10) [place] Repository 09/03/2017 Active Abnormal result of NA Active [place] other cardiovascular [facility] Main function study / [place] R94.39(ICD-10) Repository 09/02/2017 Active Cough / R05(ICD-10) [facility] [place] Repository PROCEDURES PROCEDURES No Procedure Records FoundRESULTS RESULTS XR CHEST 2V FRONTAL/LAT Observed: 08/21/2018 Status: F Source: [place] 2:[address] [facility] REPOSITORY * * *Final Report* * * DATE OF EXAM: Aug 21 2018 2:10PM WOX [id number] - XR CHEST 2V FRONTAL/LAT / PROCEDURE REASON: Cough * * * * Physician Interpretation * * * * EXAMINATION: CHEST RADIOGRAPH (2 VIEW FRONTAL and LATERAL) CLINICAL HISTORY: Cough MQ: [id number]_5 Comparison: 06/04/2018 RESULT: Lines, tubes, and devices: Mediastinal clips and wires are in place. Lungs and pleura: Mild cardiac enlargement. Mild/moderate fluid and atelectasis on the right is slightly improved. Minimal atelectasis at the left lung base is stable. Remaining lung tolbert are clear. Wedging of several mid thoracic vertebrae is stable. IMPRESSION: Slight improvement in fluid and atelectasis at the right lung base. Cardiomegaly. Laminating Machine Tender: MILLY Transcribe Date/Time: Aug 21 2018 3:04P Dictated by : FELI OROSCO MD This examination was interpreted and the report reviewed and electronically signed by: FELI OROSCO MD on Aug 21 2018 3:07PM EST [id number] PROGRESS Observed: 08/21/2018 Status: COMPLETED Source: [place] 2:[address] [facility] REPOSITORY HNO ID: [id number] Author: Anna Villatoro (Rt) Dianna Loya Service: (none) Author Type: Nurse Research Type: Progress Notes Filed: 08/21/2018 2:11 PM Note Text: Radiology Service Progress Note PATIENT NAME: Maciej Crowder DATE OF SERVICE: August 21, 2018 TIME: 2:05 PM PATIENT IDENTITY VERIFICATION COMPLETED USING TWO (2) METHODS: Patient confirmed name verbally and Date of . PATIENT GENDER DATA: Male PATIENT RELEVANT IMPLANT DATA REVIEWED: Not Applicable RADIOLOGY DEPARTMENT: General X-ray: Exam(s) Completed: Chest X-Ray PERIPHERAL IV DATA: Not applicable SIGNED BY: RT Sujey August 21, 2018 2:05 PM PROGRESS Observed: 08/21/2018 Status: COMPLETED Source: [place] 1:[address] [facility] REPOSITORY HNO ID: [id number] Author: Trent Burciaga Service: (none) Author Type: Physician Type: Progress Notes Filed: 08/21/2018 2:28 PM Note Text: Patient presents with: Cough Headache HPI: Feeling sick for about a week. The head symptoms improved. The cough is hurting his chest. He had surgery on 05/22/2018 with placement of a COW valve for the Aorta and 3 vessel bypass. Positive symptoms: productive cough, right upper chest pain with cough, short of breath until produces sputum, headache, Negative symptoms: Sorethroat, Sinus pressure, Nasal Congestion, Rhinorrhea, Fever, Chills, OTC: Tylenol, benadryl PAST MEDICAL HISTORY Diagnosis Date - Aortic stenosis, moderate 08/09/2015 10/19/2014 echocardiogram. - Coronary artery disease involving [place] coronary artery 05/22/[address] Lyles History: [facility] (08/2017) LMT: - The ostial LMT - focal disease. ?Additional Comment: 30-40% ostial stenosis. LAD: - The mid LAD is narrowed 65 % - focal disease. ?Additional Comment: The Mid LAD has a focal 60-70% stenosis and then otherwise mild diffuse disease throughout this tortuous vessel. LCX: - The mid circumflex is narrowed 50 % - focal disease. RAMUS: - The Ramus is Absent. RCA: - The mid RCA is narrowed 100 % - focal disease. ?Additional Comment: The RCA is completely occluded however there are left to right collaterals to an RV marginal that then backfills the rest of the RCA and PDA beyond the stenosis. Assessment: 05/22/2018 - CABG x3, ROSA-LAD, SVG-OM1, SVG-PDA Plan CAD Core Measures: Aspirin: Yes Beta blockers: Yes Statins: Yes - Diverticulitis - Diverticulosis 09/18/2013 - Inguinal hernia without mention of obstruction or gangrene, unilateral or unspecified, (not specified as recurrent) - Moderate persistent asthma without complication 08/09/2015 09/29/14 Spirometry: AFE10-64, 1.45 L/s, 65% pred. +41% post BD 08/09/15 Gabe: 109 (normal < 25). - Multiple fractures of ribs of both sides 2012 Work accident - Other specified type of hydrocele - Paroxysmal atrial fibrillation (HCC) 05/25/2018 History: New-onset AF (05/24); holding amiodarone in the setting of junctional bradycardia. Received 660mg 05/24 Assessment: - Converted to afib/flutter RVR, aymptomatic - 05/26 in Afib with RVR - 05/27 back in NSR - Remaining in Sinus with HR 70s to 80s Plan: - Con't amio PO, continue BB and coumadin; - replace electrolytes PRN; - Dr. Lyles (artificial insemination technician) will manage coumadin. Provide script for 1st lab draw and have results faxed to [phone] Dr. Lyles's office. 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 Amiodarone discontinued. A/P: Currently in SR. Continue to back-up VVI 30. MEDICATIONS: Current Outpatient Prescriptions: furosemide (LASIX) 20 mg tablet Take 1 tablet by mouth twice daily. metoprolol tartrate, short acting, (LOPRESSOR) 25 mg tablet Take 2 tablets by mouth twice daily. pantoprazole DR (PROTONIX) 20 mg tablet Take 1 tablet by mouth DAILY (6 AM). pravastatin (PRAVACHOL) 40 mg tablet Take 1 tablet by mouth daily at bedtime. senna-docusate (SENNA-S) 8.6-50 mg per tablet Take 1 tablet by mouth twice daily. potassium chloride ER (K-DUR, KLOR-CON) 10 mEq tablet Take 1 tablet by mouth three times daily. amiodarone (PACERONE) 200 mg tablet Take 400mg three times daily for 1 day, then 400mg twice daily for 5 days, then 400mg daily for 5 days, and then 200mg daily for [address] Lyles warfarin (COUMADIN) 5 mg tablet Take 1 tablet by mouth once daily. Per Dr. Lyles acetaminophen (TYLENOL) 325 mg tablet 2 tablets by ORAL/FEEDING TUBE route every 6 hours as needed. therapeutic multivitamin (THERA VITAMIN) tablet Take 1 tablet by mouth daily with breakfast. aspirin 81 mg chewable tablet Take 1 tablet by mouth once daily. ADVAIR DISKUS 250-50 mcg/dose dsdv USE 1 INHALATION INSTRUCTED TWICE A DAY RINSE AND GARGLE MOUTH WITH WATER AFTER EACH USE albuterol HFA (PROAIR HFA) 90 mcg/actuation inhaler Inhale 2 Puffs as instructed every 6 hours as needed. No current facility-administered medications for this visit. ALLERGIES: ALLERGIES Allergen Reactions - Lipitor [Atorvastat* Other: See Comments Chills and leg pain. VITALS: BP 138/72 Pulse 66 Temp 36.5 ?C (97.7 ?F) (Left Tympanic) Resp 16 Wt 72 kg (158 lb 12.8 oz) SpO2 92% BMI 26.02 kg/m? PHYSICAL EXAM: GEN: Pleasant, in no acute distress. Accompanied by his . HEENT: PERRL, EOMI, conjunctiva clear Ears: canals clear, TMs without erythema, bulge, or effusion Sinuses: non-tender frontal sinus, non-tender maxillary sinuses Throat: moist mucous membranes, no erythema, no exudate Neck: supple, no thyromegaly, no lymphadenopathy HEART: regular rate and rhythm, no murmurs LUNGS: Right middle lung field sounds resolve with a cough. Otherwise clear to auscultation, no increased WOB ASSESSMENT/PLAN: 1. Cough - ICD9: 786.2, ICD10: R05 - XR CHEST 2V FRONTAL/LAT - no acute changes. - DEXTROMETHORPHAN-GUAIFENESIN 30 MG-600 MG TABLET EXTENDED [id number] HR F/u with fever or worsening cough, shortness of breath, or chest pain. Trent Burciaga MD CNOV Observed: 08/21/2018 Status: COMPLETED Source: [place] 1:[address] [facility] REPOSITORY Office Visit (WSTR) MACIEJ CROWDER ([id number]) 1940 M Date Time Provider Department 08/21/18 1:30 PM TRENT BURCIAGA [facility] During your visit today, we recorded the following information about you: Temperature Pulse Respiration Blood pressure 97.7 degrees 66/minute 16/minute 138/72 Weight 72 kg Trent Burciaga MD 08/21/2018 2:28 PM Signed Patient presents with: Cough Headache HPI: Feeling sick for about a week. The head symptoms improved. The cough is hurting his chest. He had surgery on 05/22/2018 with placement of a COW valve for the Aorta and 3 vessel bypass. Positive symptoms: productive cough, right upper chest pain with cough, short of breath until produces sputum, headache, Negative symptoms: Sorethroat, Sinus pressure, Nasal Congestion, Rhinorrhea, Fever, Chills, OTC: Tylenol, benadryl PAST MEDICAL HISTORY Diagnosis Date - Aortic stenosis, moderate 08/09/2015 10/19/2014 echocardiogram. - Coronary artery disease involving [place] coronary artery 05/22/[address] Lyles History: [facility] (08/2017) LMT: - The ostial LMT - focal disease. ?Additional Comment: 30-40% ostial stenosis. LAD: - The mid LAD is narrowed 65 % - focal disease. ?Additional Comment: The Mid LAD has a focal 60-70% stenosis and then otherwise mild diffuse disease throughout this tortuous vessel. LCX: - The mid circumflex is narrowed 50 % - focal disease. RAMUS: - The Ramus is Absent. RCA: - The mid RCA is narrowed 100 % - focal disease. ?Additional Comment: The RCA is completely occluded however there are left to right collaterals to an RV marginal that then backfills the rest of the RCA and PDA beyond the stenosis. Assessment: 05/22/2018 - CABG x3, ROSA- LAD, SVG-OM1, SVG-PDA Plan CAD Core Measures: Aspirin: Yes Beta blockers: Yes Statins: Yes - Diverticulitis - Diverticulosis 09/18/2013 - Inguinal hernia without mention of obstruction or gangrene, unilateral or unspecified, (not specified as recurrent) - Moderate persistent asthma without complication 08/09/2015 09/29/14 Spirometry: QLZ99-26, 1.45 L/s, 65% pred. +41% post BD 08/09/15 Gabe: 109 (normal < 25). - Multiple fractures of ribs of both sides 2012 Work accident - Other specified type of hydrocele - Paroxysmal atrial fibrillation (HCC) 05/25/2018 History: New-onset AF (05/24); holding amiodarone in the setting of junctional bradycardia. Received 660mg 05/24 Assessment: - Converted to afib/flutter RVR, aymptomatic - 05/26 in Afib with RVR - 05/27 back in NSR - Remaining in Sinus with HR 70s to 80s Plan: - Con't amio PO, continue BB and coumadin; - replace electrolytes PRN; - Dr. Lyles (artificial insemination technician) will manage coumadin. Provide script for 1st lab draw and have results faxed to [phone] Dr. Lyles's office. 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 Amiodarone discontinued. A/P: Currently in SR. Continue to back-up VVI 30. MEDICATIONS: Current Outpatient Prescriptions: furosemide (LASIX) 20 mg tablet Take 1 tablet by mouth twice daily. metoprolol tartrate, short acting, (LOPRESSOR) 25 mg tablet Take 2 tablets by mouth twice daily. pantoprazole DR (PROTONIX) 20 mg tablet Take 1 tablet by mouth DAILY (6 AM). pravastatin (PRAVACHOL) 40 mg tablet Take 1 tablet by mouth daily at bedtime. senna-docusate (SENNA-S) 8.6-50 mg per tablet Take 1 tablet by mouth twice daily. potassium chloride ER (K-DUR, KLOR-CON) 10 mEq tablet Take 1 tablet by mouth three times daily. amiodarone (PACERONE) 200 mg tablet Take 400mg three times daily for 1 day, then 400mg twice daily for 5 days, then 400mg daily for 5 days, and then 200mg daily for [address] Lyles warfarin (COUMADIN) 5 mg tablet Take 1 tablet by mouth once daily. Per Dr. Lyles acetaminophen (TYLENOL) 325 mg tablet 2 tablets by ORAL/FEEDING TUBE route every 6 hours as needed. therapeutic multivitamin (THERA VITAMIN) tablet Take 1 tablet by mouth daily with breakfast. aspirin 81 mg chewable tablet Take 1 tablet by mouth once daily. ADVAIR DISKUS 250-50 mcg/dose dsdv USE 1 INHALATION INSTRUCTED TWICE A DAY RINSE AND GARGLE MOUTH WITH WATER AFTER EACH USE albuterol HFA (PROAIR HFA) 90 mcg/actuation inhaler Inhale 2 Puffs as instructed every 6 hours as needed. No current facility-administered medications for this visit. ALLERGIES: ALLERGIES Allergen Reactions - Lipitor [Atorvastat* Other: See Comments Chills and leg pain. VITALS: BP 138/72 Pulse 66 Temp 36.5 ?C (97.7 ?F) (Left Tympanic) Resp 16 Wt 72 kg (158 lb 12.8 oz) SpO2 92% BMI 26.02 kg/m? PHYSICAL EXAM: GEN: Pleasant, in no acute distress. Accompanied by his . HEENT: PERRL, EOMI, conjunctiva clear Ears: canals clear, TMs without erythema, bulge, or effusion Sinuses: non-tender frontal sinus, non-tender maxillary sinuses Throat: moist mucous membranes, no erythema, no exudate Neck: supple, no thyromegaly, no lymphadenopathy HEART: regular rate and rhythm, no murmurs LUNGS: Right middle lung field sounds resolve with a cough. Otherwise clear to auscultation, no increased WOB ASSESSMENT/PLAN: 1. Cough - ICD9: 786.2, ICD10: R05 - XR CHEST 2V FRONTAL/LAT - no acute changes. - DEXTROMETHORPHAN-GUAIFENESIN 30 MG-600 MG TABLET EXTENDED [id number] HR F/u with fever or worsening cough, shortness of breath, or chest pain. Trent Burciaga MD Referring Provider: SELF [200] Allergies As of Date: 08/21/2018 Noted Allergy Reaction LIPITOR (ATORVASTATIN CALCIUM) 11/22/2017 14 - Other: See Comments Comments: Chills and leg pain. Date Reviewed: 08/21/2018 Reviewed by: Karen Baldwin Ma - Fully Assessed Reason for Visit: Cough [28] Headache [52] Primary Visit Diagnosis:Cough [R05] Order(s):XR CHEST 2V FRONTAL/LAT [[id number]] Order #: [id number] FUTURE dextromethorphan-guaiFENesin (MUCINEX DM) 30-600 mg per tabletTake 1 tablet by mouth twice daily for 10 days.Disp: 20 tabletRfl: 0 Prescriptions as of 08/21/2018 Sig: FUROSEMIDE 20 MG TABLET Take 1 tablet by mouth twice * METOPROLOL TARTRATE 25 MG TAB* Take 2 tablets by mouth twice* PANTOPRAZOLE 20 MG TABLET,DEL* Take 1 tablet by mouth DAILY * PRAVASTATIN 40 MG TABLET Take 1 tablet by mouth daily * SENNOSIDES 8.6 MG-DOCUSATE SO* Take 1 tablet by mouth twice * POTASSIUM CHLORIDE ER 10 MEQ * Take 1 tablet by mouth three * AMIODARONE 200 MG TABLET Take 400mg three times daily * WARFARIN 5 MG TABLET Take 1 tablet by mouth once d* ACETAMINOPHEN 325 MG TABLET 2 tablets by ORAL/FEEDING TUB* THERAPEUTIC MULTIVITAMIN TABL* Take 1 tablet by mouth daily * ASPIRIN 81 MG CHEWABLE TABLET Take 1 tablet by mouth once d* ADVAIR DISKUS 250 MCG-50 MCG/* USE 1 INHALATION INSTRUCTE* ALBUTEROL SULFATE HFA 90 MCG/* Inhale 2 Puffs as instructed * DEXTROMETHORPHAN-GUAIFENESIN * Take 1 tablet by mouth twice * Problem List As Of Date 08/21/2018 Noted Resolved 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 Diverticulosis [K57.90] INVALID FOR* Elevated blood pressure reading without diagnos*INVALID FOR* Ex-smoker [Z87.891] INVALID FOR* More... Well adult exam [Z00.00] INVALID FOR* More... Need for lipid screening [Z13.220] INVALID FOR* More... Severe aortic stenosis [I35.0] INVALID FOR* More... Moderate persistent asthma without complication*INVALID FOR* More... Eczema [L30.9] INVALID FOR* More... More... Dyslipidemia [E78.5] INVALID FOR* More... More... Preop testing [Z01.818] INVALID FOR*05/26/2018 More... Coronary artery disease involving [place]*INVALID FOR* More... Postprocedural hypotension [I95.81] INVALID FOR*05/24/2018 More... Acute on chronic systolic heart failure (HCC) [*INVALID FOR* More... Post-operative pain [G89.18] INVALID FOR* More... Stress hyperglycemia [R73.9] INVALID FOR*05/24/2018 More... Acute blood loss anemia [D62] INVALID FOR*05/25/2018 More... More... More... Paroxysmal atrial fibrillation (HCC) [I48.0] INVALID FOR* More... More... More... Transition of care performed with sharing of cl*INVALID FOR* More... Anticoagulation management encounter [Z51.81, Z*INVALID FOR* More... Prescriptions ordered this encounter Disp Refills Start End DEXTROMETHORPHAN-GUAIFENESIN 30 MG-6* 20 t* 0 08/21/2018 08/31/2018 Route: ORAL Sig: Take 1 tablet by mouth twice daily for 10 days. Encounter Status:Closed by TRENT BURCIAGA MD on 08/21/18 PROTHROMBIN TIME W/INR Collected: 08/13/2018 Status: F Source: [place] 8:22 AM [place] [facility] REPOS[facility]ORY TYPE CODE TESTS RESULT OUT OF RANGE REFERENCE UNITS LAB L300.4150 11.7-14.9 SECONDS High PROTIME 20.9 LAB L300.4200 Normal INR 1.8 Performed By: #### [id number] #### [facility] [place], [address] PROTHROMBIN TIME W/INR Collected: 07/16/2018 Status: F Source: YARELIS 10:04 AM [facility] REPOS[facility] TYPE CODE TESTS RESULT OUT OF RANGE REFERENCE UNITS LAB L300.4150 11.7-14.9 SECONDS High PROTIME 22.9 LAB L300.4200 Normal INR 2.0 Performed By: #### [id number] #### [facility] [address] [place], [address] CR - HISTORY AND Observed: 07/04/2018 Status: F Source: TIMBER PHYSICAL 9:32 AM [facility]POS[facility] [address] [place] [address] CR - History AND Physical MR#: [id number] Acct: [id number] Name: MACIEJ CROWDER Rep #: [id number] : 1940 78 From: Iam Moore BS, RVT PCP: Vidal Valdes MD DOS: 07/02/18 CR - History AND Physical - General Arrival date:: 07/02/18 Arrival time:: 08:54 Date of Referral:: 06/13/18 Date of CR Evaluation:: 07/02/18 Referring Physician: Dr. Tanvir Lyles Primary Diagnosis: CABG, Valve replacement, Z95.1, Z95.2 - History of Present Cardiac Event Onset Date: Enter Onset Date of cardiac illnesses in Comment field below Current stable Angina Pectoris:: No Acute Myocardial Infarction within 12 months:: No Coronary Artery Bypass Graft:: Yes Heart valve replacement or repair:: Yes - Medications Home Medications: Ambulatory Orders Medication Instructions Recorded aspirin 81 mg tablet,delayed 81 mg PO QDAY 01/20/18 release acetaminophen 325 mg tablet 650 mg PO Q6H PRN tab 06/12/18 - Allergies Allergies/Adverse Reactions: Allergies atorvastatin Adverse Reaction (Verified 03/07/18 14:33) myalgias - Sleep Disorder Evaluation Hx of Sleep Apnea: No Do you snore loudly (louder than talking or can be heard through closed doors)?: No Do you often feel tired/ fatigued/ sleepy during daytime?: No Has anyone observed you stop breathing during sleep?: No History of Hypertension (for STOP score): Yes STOP Results: Negative Advanced Directives - Advanced Directives 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 Living Will: Yes Advance Directives Information Provided: No Advance Directives on File: No DNR Order?:: No Past Medical History - Past Medical Illness Medical History: Past Medical History (Last Reviewed 06/13/18 @ 14:36 by Joan Charles) Tachy-huang syndrome (Acute) Onset Date: 05/24/18 I49.5 Noted on discharge summary from [facility] after CABG and AVR Atelectasis (Acute) J98.11 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) I97.89, I48.91 History of aortic stenosis (Chronic) Z86.79 ROSA to LAD, reverse SVG to OM and PDA of RCA along with AVR using 25 Andrew Awan valve, per Dr. Rosales Urbina, [facility] Hypertension (Chronic) I10 Dyslipidemia (Chronic) E78.5 Atherosclerosis of coronary artery of [place] heart without angina pectoris (Chronic) I25.10 Asthma J45.909 Diverticulitis K57.92 Eczema L30.9 Inguinal hernia K40.90 Bilateral pneumothorax Onset Date: 09/01/13 J93.9 Non-rheumatic aortic stenosis (Resolved) I35.0 - Past Surgical History Surgical History: Past Surgical History (Last Reviewed 06/13/18 @ 14:36 by Joan Charles) H/O aortic valve replacement (Chronic) Onset Date: 05/22/18 Z95.2 ROSA to LAD, reverse SVG to OM and PDA of RCA along with AVR using 25 Andrew Awan valve, per Dr. Rosales Urbina, [facility] S/P CABG x 3 (Chronic) Onset Date: 05/22/18 Z95.1 ROSA to LAD, reverse SVG to OM and PDA of RCA along with AVR using 25 Andrew Awan valve, per Dr. 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 Social History - Smoking History Smoking Status: Former smoker Years Smokin Packs Smoked per Day: 0.5 Hx Smoking Cessation Date: 07/29/2009 Hx Tobacco Use: Yes Hx Smoking Exposure: Yes - Alcohol Use Alcohol Usage: No - Substance Abuse Hx Substance Use: No - Occupation Occupation (List type of work in comments):: Employed Hours worked per day:: 10 - Hobbies, Recreation, Social Activities Hobbies: Other - hunting Recreational Activities: I am able to engage in all my recreational activities Social Environment - Status Marital Status: - Current Living Arrangements Living Environment:: Family - Children Do any of your children live nearby?: Yes - Safety Do you feel safe in your surroundings?: Yes - Assistance Do you need any assistance at home?: none Review of Systems - Review of Systems Hints: Right click = Denies (Slash). Left click = Reports ([place]) Review of Present Symptoms: Reports: Shortness of Breath with Exertion, Appetite - Normal, Sleep - Normal. Denies: Shortness of Breath at Rest, PVD, Operative Discomfort, Angina, Wound Healing, Dizziness/Lightheadedness, Fatigue, Heart Arrhythmia/Irregularities, Appetite - Special Diet, Sexual Changes - Pain Is Patient Pain Free?: Yes Risk Factor Assessment - Chief Complaint Chief Complaint: CABG, Valve repair/replacement - Vital Signs Pulse Ox: 91 - Pulse Pulse Rate: 56 Pulse Rhythm: Regular - Hypertension How long have you been treated?: .5 Blood Pressure Sitting - Left Arm: 114/58 - Obesity Height: 1.7 m Weight:: 70.76 kg Weight in Pounds: 156.0 lbs Weight Source: Standing Scale Body Mass Index (BMI): 24.4 Nutritional Referral for Obesity: No - Physical Inactivity Physical Inactivity: Reg Exercise 30 min/day, Physically demanding job, Recreational activity, None - Risk Stratification Risk Guidelines: Lowest Risk: Risk Factor for Diabetes, Risk Factor for Obesity, Moderate Risk: Risk Factor for Smoking, Risk Factor for Dyslipidemia, Risk Factor for Diabetes, Risk Factor for Hypertension, Risk Factor for Sedentary Lifestyle, Risk Factor for Depression - For Smoking Smoking Risk Guidelines: Smoking Low Risk: None or quit greater than 6 months ago. Smoking Moderate Risk: Smoker or quit 6 months or less ago. Smoking High Risk: Smoker - For Dyslipidemia Dyslipidemia Risk Guidelines: Low Risk: Moderate Risk: High Risk: 15-25% fat 25.1-29% fat >/= 30% fat. <7% sat fat 7-9% sat fat >9% sat fat. <150 mg chol 150-299 mg chol >/= 300 mg chol. LDL <100 LDL 100-129 LDL >/= 130. Chol/HDL ratio <5.0 Chol/HDL ratio 5.0-6.0 Chol/HDL ratio >6.0. Triglycerides <100 Triglycerides 100-149 Triglycerides >/= 150 - For Diabetes Mellitus Diabetes Risk Guidelines: Diabetes Low Risk: HgA1c <6.5% and/or FBG <120. Diabetes Moderate Risk: HgA1c 6.6-7.9% and/or FBG 120- 180. Diabetes High Risk: HgA1c >/= 8% and/or FBG >180 - For Obesity/Overweight Obesity/Overweight Risk Guidelines: Obesity Low Risk: BMI <25.0. Obesity Moderate Risk: BMI 25-29.9. Obesity High Risk: BMI >/= 30.0 - For Hypertension Hypertension Risk Guidelines: Hypertension Low Risk: Systolic <120 and Diastolic <80. Hypertension Moderate Risk: Systolic 120-139 and Diastolic 80-89. Hypertension High Risk: Systolic >/= 140 and Diastolic >/= 90 - For Sedentary Lifestyle Sedentary Lifestyle Risk Guidelines: Sedentary Lifestyle Low Risk: >/= 1,500 kcal/week. Sedentary Lifestyle Moderate Risk: 700-1,499 kcal/week. Sedentary Lifestyle High Risk: < 700 kcal/week - For Depression Depression Risk Guidelines: Depression Low Risk: Not clinically depressed. Depression Moderate Risk: Mildly depressed. Depression High Risk: Clinically depressed Motivation - Motivation to Participate On a scale of 1 to 10, how prepared are you to commit to attending program?: 8 What do you see as barriers to successfully being able to complete the program?: transportation What do you see as the benefits of succesfully completing the program? In other words, what do you hope to get out of participating in the program?: improved health Are there issues you are dealing with that will interfere with completing the program?: none Do you have a spouse or signficant other, family or friends who will help support you to complete the program?: yes 07/02/18 1024 <Electronically signed by Iam CAT, TATIANAT> Date Iam CAT, TATIANAT Outcome assessment reviewed. Exercise plan approved as documented. Treatment plan and goals support patient needs/abilities. Continue with current plan. I certify the patient demonstrates improvement and remains willing and capable of participation. the patient continues to benefit from cardiac rehab services/training. The patient may continue at current intensity, endurance and modality and progress per protocol. 07/04/18 0932 <Electronically signed by Tanvir Lyles MD> Cosigner Signature: Date Tanvir Lyles MD CC: Signed PROTHROMBIN TIME W/INR Collected: 07/02/2018 Status: F Source: YARELIS 8:37 AM [facility]POS[facility] TYPE CODE TESTS RESULT OUT OF RANGE REFERENCE UNITS LAB L300.4150 11.7-14.9 SECONDS High PROTIME 33.9 LAB L300.4200 Normal INR 3.3 Performed By: #### L300.3900 #### [facility] [address] [place], [address] PROGRESS Observed: 06/23/2018 Status: COMPLETED Source: [place] 2:35 PM [facility] REPOSITORY O ID: [id number] Author: Claudia (Rn) CHERI Brewer Service: (none) Author Type: Registered Nurse Type: Progress Notes Filed: 06/23/2018 2:40 PM Note Text: TRANSITION CARE MANAGEMENT (TCM) FOLLOW-UP NOTE Patient identified by name and date of : YES Spoke to patient and Summary: Hospital d/c 05/30 cabg x 3, AVR Completed TCM appt and CARD f/u - Concerns: Patient reports he is doing well. Denies CP, palpitations, SOB, lightheadedness, swelling or any new or worsening Sx. Incisions healing. reports he has all his medications - denies questions or concerns. Verbalized understanding of upcoming appts. Denies further concerns or questions. 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 No further follow up needed at this time Signature Claudia Brewer RN June 23, 2018 PROTHROMBIN TIME W/INR Collected: 06/23/2018 Status: F Source: YARELIS 8:11 AM [facility]POS[facility]ORY TYPE CODE TESTS RESULT OUT OF RANGE REFERENCE UNITS LAB L300.4150 11.7-14.9 SECONDS High PROTIME 32.5 LAB L300.4200 Normal INR 3.1 Performed By: #### L300.3900 #### [facility] [address] [place], [address] CNPTOUTREACH Observed: 06/23/2018 Status: COMPLETED Source: [place] 12:[address] [facility] REPOSITORY Patient Outreach (FAMPWS) MACIEJ CROWDER ([id number]) 1940 M Date Time Provider Department 06/23/18 [facility] During your visit today, we recorded the following information about you: Claudia Brewer RN, RN 06/23/2018 2:40 PM Signed TRANSITION CARE MANAGEMENT (TCM) FOLLOW-UP NOTE Patient identified by name and date of : YES Spoke to patient and Summary: Hospital d/c 05/30 cabg x 3, AVR Completed TCM appt and CARD f/u - Concerns: Patient reports he is doing well. Denies CP, palpitations, SOB, lightheadedness, swelling or any new or worsening Sx. Incisions healing. reports he has all his medications - denies questions or concerns. Verbalized understanding of upcoming appts. Denies further concerns or questions. 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 No further follow up needed at this time Signature Claudia Brewer RN June 23, 2018 Allergies As of Date: 06/23/2018 Noted Allergy Reaction LIPITOR (ATORVASTATIN CALCIUM) 11/22/2017 14 - Other: See Comments Comments: Chills and leg pain. Date Reviewed: 06/04/2018 Reviewed by: Vidal Valdes - Fully Assessed Reason for Visit: Transition Of Care [4074] Cmt: TCM: follow up Prescriptions as of 06/23/2018 Sig: FUROSEMIDE 20 MG TABLET Take 1 tablet by mouth twice * METOPROLOL TARTRATE 25 MG TAB* Take 2 tablets by mouth twice* PANTOPRAZOLE 20 MG TABLET,DEL* Take 1 tablet by mouth DAILY * PRAVASTATIN 40 MG TABLET Take 1 tablet by mouth daily * SENNOSIDES 8.6 MG-DOCUSATE SO* Take 1 tablet by mouth twice * POTASSIUM CHLORIDE ER 10 MEQ * Take 1 tablet by mouth three * AMIODARONE 200 MG TABLET Take 400mg three times daily * WARFARIN 5 MG TABLET Take 1 tablet by mouth once d* ACETAMINOPHEN 325 MG TABLET 2 tablets by ORAL/FEEDING TUB* THERAPEUTIC MULTIVITAMIN TABL* Take 1 tablet by mouth daily * ASPIRIN 81 MG CHEWABLE TABLET Take 1 tablet by mouth once d* ADVAIR DISKUS 250 MCG-50 MCG/* USE 1 INHALATION INSTRUCTE* ALBUTEROL SULFATE HFA 90 MCG/* Inhale 2 Puffs as instructed * Problem List As Of Date 06/23/2018 Noted Resolved 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 Diverticulosis [K57.90] INVALID FOR* Priority: C Elevated blood pressure reading without diagnos*INVALID FOR* Ex-smoker [Z87.891] INVALID FOR* Priority: B More... Well adult exam [Z00.00] INVALID FOR* Priority: D More... Need for lipid screening [Z13.220] INVALID FOR* More... Severe aortic stenosis [I35.0] INVALID FOR* Priority: A More... Moderate persistent asthma without complication*INVALID FOR* Priority: A More... Eczema [L30.9] INVALID FOR* Priority: D More... More... Dyslipidemia [E78.5] INVALID FOR* Priority: A More... More... Preop testing [Z01.818] INVALID FOR*05/26/2018 More... Coronary artery disease involving [place]*INVALID FOR* Priority: A More... Postprocedural hypotension [I95.81] INVALID FOR*05/24/2018 Priority: C More... Acute on chronic systolic heart failure (HCC) [*INVALID FOR* Priority: C More... Post-operative pain [G89.18] INVALID FOR* Priority: D More... Stress hyperglycemia [R73.9] INVALID FOR*05/24/2018 Priority: E More... Acute blood loss anemia [D62] INVALID FOR*05/25/2018 Priority: H More... More... More... Paroxysmal atrial fibrillation (HCC) [I48.0] INVALID FOR* Priority: A More... More... More... Transition of care performed with sharing of cl*INVALID FOR* Priority: A More... Anticoagulation management encounter [Z51.81, Z*INVALID FOR* More... Encounter Status:Closed by CLAUDIA BREWER on 06/23/18 PROTHROMBIN TIME W/INR Collected: 06/16/2018 Status: F Source: YARELIS 11:19 AM [facility] Order Comment: Comments: STANDING ORDER Comments: STANDING ORDER TYPE CODE TESTS RESULT OUT OF RANGE REFERENCE UNITS LAB L300.4150 11.7-14.9 SECONDS High PROTIME 24.8 LAB L300.4200 Normal INR 2.2 Performed By: #### L300.3900 #### [facility] [address] [place], [address] PROTHROMBIN TIME W/INR Collected: 06/13/2018 Status: F Source: YARELIS 3:48 PM [facility] REPOSIT[facility] Order Comment: Comments: STANDING ORDER Comments: STANDING ORDER TYPE CODE TESTS RESULT OUT OF REFERENCE UNITS RANGE LAB L300.4150 11.7-14.9 SECONDS High PROTIME 45.3 LAB L300.4200 High alert INR 4.8 Result Comment: RESULTS CALLED TO NAN MI 06/13/18 1628 Garry Alcantara. REPORT READ BACK BY SAME. Performed By: #### L300.3900 #### [facility] [address] [place], [address] CARDIOLOGY VISIT Observed: 06/13/2018 Status: F Source: YARELIS REPORT 3:23 PM [facility] [address] [place] [address] OFFICE VISIT Date of Service: 06/13/18 MR#: [id number] Acct: [id number] Name: MACIEJ CROWDER Rep #: [id number] : 1940 Provider: Tanvir Lyles MD Age/Sex: 78/M Location: [facility] Status: Signed HPI HPI Chief Complaint: Severe aortic stenosis second opinion Details: MACIEJ CROWDER, is a 78 nondiabetic,'s gentleman, previous smoker quit around 4-5 years ago after a 62-wsog-iquw smoking history, with associated hypertension, hypercholesterolemia, status post bilateral pneumothorax approximately 4 years ago after suffering a work-related injury when a pipe hit his chest. He required bilateral chest tubes and was transferred to [facility] at that time. At that time a murmur was detected and he was told at that time he had aortic stenosis. He then followed up at the [facility] and underwent an echocardiogram which demonstrated an aortic valve area of less than 0.80 cm , a peak and mean gradient of 61 and 36 mmHg. He then underwent a left heart catheterization at the [facility] on 09/18/17 which was a left heart cath only which demonstrated 30-40% left main ostial stenosis, 65% mid LAD, 50% left circumflex, and occluded RCA with [id number] collaterals. Patient was supposed to be referred for surgical aortic valve replacement and two-vessel bypass surgery but apparently that never occurred despite efforts by the family to contact the [facility]. 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 In addition, as part of his cardiac workup at the [facility] on 08/28/17 the patient underwent a modified Tyrell treadmill imaging study which demonstrated moderate ischemia in the circumflex territory, ST elevation in aVR and aVL lasting 13 minutes into recovery consistent with significant aortic stenosis. Patient was transferred to [facility] on 05/22/18 underwent bypass surgery x3 with a ROSA to the LAD, saphenous vein graft to the obtuse marginal, and saphenous vein graft to the PDA as well as an aortic valve replacement receiving a #[address] Urbina. Since that time is been doing extraordinarily well. He feels much better, his edema is gone, and now he is able to lay down flat without difficulty and go to sleep. He is convalescing well and is awaiting entry into cardiac rehab. In our office today's blood pressure is 120/60, and pulse is 61 and regular. His physical exam demonstrates decreased carotid upstroke bilaterally, no carotid bruits, regular rate and rhythm with no murmurs, no S3 or S4. No edema noted. EKG dated 09/03/17 shows normal sinus rhythm with LVH by voltage and PVCs. EKG dated 06/13/18 shows normal sinus rhythm, normal axis, normal intervals, QT corrected of 455 ms. 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: No Accompanied by: Is patient in pain?: No Allergies atorvastatin Adverse Reaction (Verified 03/07/18 14:33) myalgias Medications aspirin 81 mg tablet,delayed release 81 mg PO QDAY 01/20/18 [History Confirmed 06/12/18] warfarin 5 mg tablet 5 mg PO QHS tab 06/03/18 [History Confirmed 06/12/18] acetaminophen 325 mg tablet 650 mg PO Q6H PRN tab 06/12/18 [History Confirmed 06/12/18] albuterol sulfate HFA 90 mcg/actuation aerosol inhaler 2 puff INHALATION Q6H PRN 06/12/18 [History Confirmed 06/12/18] amiodarone 200 mg tablet 200 mg PO .COMPLEX 06/12/18 [History Confirmed 06/12/18] fluticasone 250 mcg-salmeterol 50 mcg/dose blistr powdr for inhalation 1 inh INHALATION BID 06/12/18 [History Confirmed 06/12/18] multivitamin tablet 1 tab PO DAILY 06/12/18 [History Confirmed 06/12/18] pantoprazole 20 mg tablet,delayed release 20 mg PO DAILY 06/12/18 [History Confirmed 06/12/18] potassium chloride ER 10 mEq tablet,extended release 10 meq PO DAILY 06/12/18 [History Confirmed 06/12/18] pravastatin 40 mg tablet 40 mg PO DAILY 06/12/18 [History Confirmed 06/12/18] sennosides 8.6 mg-docusate sodium 50 mg tablet 1 tab PO BID PRN 06/12/18 [History Confirmed 06/12/18] furosemide 20 mg tablet 20 mg PO BID #180 tab 06/13/18 [Rx Confirmed 06/13/18] metoprolol tartrate 25 mg tablet 50 mg PO BID tab 06/13/18 [History Confirmed 06/13/18] [facility] Medical History Tachy-huang syndrome (Acute 05/24/18) Atelectasis (Acute) 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) History of aortic stenosis (Chronic) Hypertension (Chronic) Dyslipidemia (Chronic) Atherosclerosis of coronary artery of [place] heart without angina pectoris (Chronic) Asthma (Chronic) Diverticulitis (Chronic) Eczema (Chronic) Inguinal hernia (Chronic) Bilateral pneumothorax (Resolved 09/01/13) Non-rheumatic aortic stenosis (Resolved) Surgical History H/O aortic valve replacement (Chronic 05/22/18) S/P CABG x 3 (Chronic 05/22/18) History of open reduction and internal fixation (ORIF) procedure (Acute) History of inguinal hernia repair (Chronic) History of left heart catheterization (Chronic 09/18/17) Social History Smoking Status: Never smoker ROS Const Const: Positive for other (CABG x3 and bioprosthetic AVR 05/22/18 @ [facility]); negative for fatigue, weakness, body ache, fever(s), headache(s), chills, frequent falls, night sweats, daytime sleepiness, difficulty sleeping, excessive sweating, weight gain, weight loss, increased appetite, poor appetite or anorexia Eyes Eyes: Negative for blind spots, loss of peripheral vision, transient loss of vision, blurry vision, change in vision, double vision, floaters, tunnel vision or other ENT ENT: Negative for headache(s), dizziness, hearing loss, tinnitus, Nosebleed/epistaxis, balance problems, post nasal drip, lip swelling, tongue swelling, bleeding gums, hoarseness, neck pain, dry mouth or other Cardio Chest Pain: No Palpitations: No Edema: None (wearing support stockings) Resp Respiratory: Negative for SOB with activity, SOB at rest, SOB orthopnea\SOB lying down, Cough, Coughing up blood/hemoptysis, chest congestion, pain on inspiration, snoring, stridor, wheezing, crackles, paroxysmal nocturnal dyspnea or other GI GI: Negative nausea, vomiting, heartburn, constipation, belching, bloating, cramping, vomiting blood/hematemesis, bright, red blood in stools, black,tarry stools, loose stools, Difficulty Swallowing or other : Negative for hematuria, frequent nighttime urination/ nocturia, erectile dysfunction or abnormal vaginal bleeding Musc Musc: Negative for balance problems, muscle aches/ myalgia, muscle weakness or joint pain Skin Skin: Negative redness, non-healing lesions, rash, unusual bruising, skin ulcer, wounds, jaundice or other Neuro Neuro: Negative for weakness, headache(s), frequent falls, blurry vision, double vision, dizziness, lightheadedness, near syncope, syncope, orthostatic symptoms, confusion, memory loss, restless legs, vertigo, seizures, lack of coordination or other [place]hoi Hematologic/Lymphatic: Negative for easy bleeding, easy bruising, enlarged lymph nodes or other Endo Endo: Negative for fatigue, excessive sweating, cold intolerance, heat intolerance, flushing, increased thirst/drinking, increased hunger, hair loss, hair growth or other Psych Psych: Negative for anxiety, depression, thoughts of harming anyone, thoughts of harming yourself, visual hallucinations, panic attacks or audible hallucinations Allergy Allergy/Immunology: Negative for lip swelling, Negative for tongue swelling, Negative for rash, Negative for throat swelling, Negative for hives Cardiology Exam Const Appearance: cooperative, healthy appearing and no acute distress Nutritional Appearance: well nourished Orientation: alert, oriented x3 and oriented to person Head Head: normal to inspection, atraumatic and normocephalic Nose: external nose normal Face and Sinus: face symmetric Mouth: oral mucosae normal Eyes General: appearance normal, both eyes and all related structures Eyelids: eyelids normal Conjunctivae: conjunctivae normal Pupils: PERRL and normal by confrontation EOM: EOM intact bilaterally Neck Neck: normal visual inspection and full ROM Carotids: normal carotid upstroke Chest Chest inspection: normal inspection of the chest Auscultation: Bilateral: Clear to Auscultation Cardio Palpation: normal PMI Rate: regular rate Rhythm: regular rhythm Heart sounds: S1 normal and S2 normal GI GI: normal to inspection, no hepatosplenomegaly and bowel sounds present Neuro General: alert, oriented x3, awake, CN's II-XI intact bilaterally and moves all extremities Skin Skin: no rashes or lesions noted Extremities Pulses: Normal: Right Femoral Pulse, Left Femoral Pulse, Right Dorsalis Pedis Pulse, Left Dorsalis Pedis Pulse, Right Posterior Tibial Pulse, Left Posterior Tibial Pulse, Right Radial Pulse, Left Radial Pulse Lower Extremity Edema: None: Bilateral Psych Psychological: normal affect Assessment AND Plan 1. Atherosclerosis of coronary artery of [place] heart without angina pectoris I25.10 Plan 1. Coronary artery disease: No anginal symptoms at this time. He is status post three-vessel bypass surgery and doing very well. We will enroll him in cardiac rehab. Have recommended he can to new his baby aspirin, Lasix, metoprolol and potassium. Orders Referrals: 2. H/O aortic valve replacement Z95.2 ROSA to LAD, reverse SVG to OM and PDA of RCA along with AVR using 25 Andrew Awan valve, per Dr. Rosales Urbina, [facility] Plan 2. Aortic valve replacement: Patient is status post bioprosthetic aortic valve replacement. He has a current SBE prophylaxis card provided by the [facility]. Orders Orders: Referrals: 3. Atrial fibrillation I48.91 Plan 3. Atrial fibrillation: Patient is currently normal sinus rhythm with amiodarone assistance. He will continue amiodarone for another 21 days. Continue warfarin therapy. Orders Referrals: 4. Dyslipidemia E78.5 Plan 4. Hyperlipidemia: We are awaiting a repeat lipid profile once he is completed cardiac rehab. Continue Pravachol. 5. Return office in 6 months. This note was generated using a voice recognition system and there may be incorrect words, spelling or punctuation that were not noted when reviewing the office note prior to saving. Plan Detail Other Orders Orders: Referrals: Other Medications New: Follow Up +6M (Rafal) Coding Level of Care Code Off vis,est,level 3 Diagnoses Atherosclerosis of coronary artery of [place] heart without angina pectoris I25.10 H/O aortic valve replacement Z95.2 Atrial fibrillation I48.91 Dyslipidemia E78.5 Coding Level of Care Code Off vis,est,level 3 Diagnoses Atherosclerosis of coronary artery of [place] heart without angina pectoris I25.10 H/O aortic valve replacement Z95.2 Atrial fibrillation I48.91 Dyslipidemia E78.5 06/13/18 1523 <Electronically signed by Tanvir Lyles MD> Date [facility]: Date (if applicable) CC: Vidal Valdes MD 12 LEAD EKG PERFORMED Observed: 06/13/2018 Status: F Source: [place] 2:18 PM [facility] [address] [place] [address] 12 Lead EKG performed by [facility] 06/13/181416 MR#: [id number] Acct: [id number] Name: MACIEJ CROWDER Rep #: [id number] : 1940 78 From: Tanvir Lyles MD Attending Dr: Tanvir Lyles MD Status: DEP AMB Ordering Dr: Tanvir Lyles MD Date: 06/13/18 Location: [facility] Sex: M C Admitted: [facility]/12 Lead EKG performed by [facility] ECG Report Interpretation Sinus Rhythm WITHIN NORMAL LIMITSElectronically signed on 07/11/2018 at 15:33 by Tanvir Lyles Software Version [id number] 07/11/18 1541 Date Tanvir Lyles MD CC: Vidal Valdes MD Date Dictated: 06/13/181416 Date Transcribed: 06/13/181416 Laminating Machine Tender: Signed PROGRESS Observed: 06/12/2018 Status: COMPLETED Source: [place] 2:[address] [facility] REPOSITORY O ID: [id number] Author: Dionne Villegas Pharmd Service: (none) Author Type: Pharmacist Type: Progress Notes Filed: 06/12/2018 2:51 PM Note Text: TRANSITION CARE MANAGEMENT (TCM) PHARMACY FOLLOW-UP Provider Action/FYI: ? Full TCM Medication Reconcilation completed for patient on 06/02/18. No pertinent pharmacy issues identified on follow-up call. Follow up call with patient post discharge, spoke to patient. Patient identified by name and . See post-discharge summary from contact on 06/02/18. Patient Concerns: Pt reports he is doing well since discharge. Reports no medication changes, questions or concerns. Notes that he completed labs for Dr. Lyles yesterday (06/11) and has an appointment with him tomorrow (06/13). Inquired about current Warfarin dose, pt reports he is unsure of dosing notes that his manages medications. Provided pt with pharmacy call back number if pt or have any further questions or concerns regarding medications. Received return call from pt's , Ángel. Reviewed bolded medications in table below. reports no other questions or concerns. Medication List Medication Directions Comments Action/Plan acetaminophen (TYLENOL) 325 mg tablet 2 tablets by ORAL/FEEDING TUBE route every 6 hours as needed. ADVAIR DISKUS 250-50 mcg/dose dsdv USE 1 INHALATION INSTRUCTED TWICE A DAY RINSE AND GARGLE MOUTH WITH WATER AFTER EACH USE albuterol HFA (PROAIR HFA) 90 mcg/actuation inhaler Inhale 2 Puffs as instructed every 6 hours as needed. Discontinued: 06/04/2018 8:26 AM amiodarone (PACERONE) 200 mg tablet Take 400mg three times daily for 1 day, then 400mg twice daily for 5 days, then 400mg daily for 5 days, and then 200mg daily for [address] Lyles Med Update 06/04, added Dr. Lyles note aspirin 81 mg chewable tablet Take 1 tablet by mouth once daily. Discontinued: 06/04/2018 9:00 AM furosemide (LASIX) 20 mg tablet Take 1 tablet by mouth twice daily. [facility] Discontinued: 06/04/2018 9:00 AM metoprolol tartrate, short acting, (LOPRESSOR) 25 mg tablet Take 2 tablets by mouth twice daily. [facility]04 Discontinued: 06/04/2018 9:[address] (PROTONIX) 20 mg tablet Take 1 tablet by mouth DAILY (6 AM). [facility] Discontinued: 06/04/2018 9:00 AM potassium chloride ER (K-DUR, KLOR-CON) 10 mEq tablet Take 1 tablet by mouth three times daily. E-rx to [facility] 06/04 SIG update Taking as prescribed without any issues Discontinued: 06/04/2018 9:00 AM pravastatin (PRAVACHOL) 40 mg tablet Take 1 tablet by mouth daily at bedtime. [facility] 06[facility] Discontinued: 06/04/2018 9:00 AM senna-docusate (SENNA-S) 8.6-50 mg per tablet Take 1 tablet by mouth twice daily. Refill to [facility] 06/04 therapeutic multivitamin (THERA VITAMIN) tablet Take 1 tablet by mouth daily with breakfast. Discontinued: 06/04/2018 8:27 AM warfarin (COUMADIN) 5 mg tablet Take 1 tablet by mouth once daily. Per Dr. Lyles Med update 06/04, added Dr. Lyles note reports pt was advised to take 1/2 tab (2.5mg) on 06/10 and then resume 5mg daily. Confirms NOV with Dr. Lyles 06/13. Follow Up Plan: No further follow up needed at this time Interventions Made: Patient education and Medication counseling Time spent on patient: 10-20 minutes Dionne Villegas PharmD June 12, 2018 2:07 PM YOUSIF Observed: 06/12/2018 Status: COMPLETED Source: [place] 12:[address] [facility] REPOSITORY Patient Outreach (LATASHA) MACIEJ CROWDER ([id number]) 1940 M Date Time Provider Department 06/12/18 DIONNE VILLEGAS PHARMD During your visit today, we recorded the following information about you: Dionne Villegas PharmD 06/12/2018 2:51 PM Signed TRANSITION CARE MANAGEMENT (TCM) PHARMACY FOLLOW-UP Provider Action/FYI: ? Full TCM Medication Reconcilation completed for patient on 06/02/18. No pertinent pharmacy issues identified on follow-up call. Follow up call with patient post discharge, spoke to patient. Patient identified by name and . See post-discharge summary from contact on 06/02/18. Patient Concerns: Pt reports he is doing well since discharge. Reports no medication changes, questions or concerns. Notes that he completed labs for Dr. Lyles yesterday (06/11) and has an appointment with him tomorrow (06/13). Inquired about current Warfarin dose, pt reports he is unsure of dosing notes that his manages medications. Provided pt with pharmacy call back number if pt or have any further questions or concerns regarding medications. Received return call from pt's , Ángel. Reviewed bolded medications in table below. reports no other questions or concerns. Medication List Medication Directions Comments Action/Plan acetaminophen (TYLENOL) 325 mg tablet 2 tablets by ORAL/FEEDING TUBE route every 6 hours as needed. ADVAIR DISKUS 250-50 mcg/dose dsdv USE 1 INHALATION INSTRUCTED TWICE A DAY RINSE AND GARGLE MOUTH WITH WATER AFTER EACH USE albuterol HFA (PROAIR HFA) 90 mcg/actuation inhaler Inhale 2 Puffs as instructed every 6 hours as needed. Discontinued: 06/04/2018 8:26 AM amiodarone (PACERONE) 200 mg tablet Take 400mg three times daily for 1 day, then 400mg twice daily for 5 days, then 400mg daily for 5 days, and then 200mg daily for [address] Lyles Med Update 06/04, added Dr. Lyles note aspirin 81 mg chewable tablet Take 1 tablet by mouth once daily. Discontinued: 06/04/2018 9:00 AM furosemide (LASIX) 20 mg tablet Take 1 tablet by mouth twice daily. Refill to [facility] 06/04 Discontinued: 06/04/2018 9:00 AM metoprolol tartrate, short acting, (LOPRESSOR) 25 mg tablet Take 2 tablets by mouth twice daily. [facility] 06/04 Discontinued: 06/04/2018 9:[address] (PROTONIX) 20 mg tablet Take 1 tablet by mouth DAILY (6 AM). [facility] 06[facility] Discontinued: 06/04/2018 9:00 AM potassium chloride ER (K-DUR, KLOR-CON) 10 mEq tablet Take 1 tablet by mouth three times daily. E-rx to [facility] 06/04 SIG update Taking as prescribed without any issues Discontinued: 06/04/2018 9:00 AM pravastatin (PRAVACHOL) 40 mg tablet Take 1 tablet by mouth daily at bedtime. [facility] Discontinued: 06/04/2018 9:00 AM senna-docusate (SENNA-S) 8.6-50 mg per tablet Take 1 tablet by mouth twice daily. [facility] therapeutic multivitamin (THERA VITAMIN) tablet Take 1 tablet by mouth daily with breakfast. Discontinued: 06/04/2018 8:27 AM warfarin (COUMADIN) 5 mg tablet Take 1 tablet by mouth once daily. Per Dr. Lyles Med update 06/04, added Dr. Lyles note reports pt was advised to take 1/2 tab (2.5mg) on 06/10 and then resume 5mg daily. Confirms NOV with Dr. Lyles 06/13. Follow Up Plan: No further follow up needed at this time Interventions Made: Patient education and Medication counseling Time spent on patient: 10-20 minutes Dionne Villegas, [place] June 12, 2018 2:07 PM Allergies As of Date: 06/12/2018 Noted Allergy Reaction LIPITOR (ATORVASTATIN CALCIUM) 11/22/2017 14 - Other: See Comments Comments: Chills and leg pain. Date Reviewed: 06/04/2018 Reviewed by: Vidal Valdes - Fully Assessed Reason for Visit: Transition Of Care [4074] Cmt: Pharmacy TCM Follow-up Prescriptions as of 06/12/2018 Sig: FUROSEMIDE 20 MG TABLET Take 1 tablet by mouth twice * METOPROLOL TARTRATE 25 MG TAB* Take 2 tablets by mouth twice* PANTOPRAZOLE 20 MG TABLET,DEL* Take 1 tablet by mouth DAILY * PRAVASTATIN 40 MG TABLET Take 1 tablet by mouth daily * SENNOSIDES 8.6 MG-DOCUSATE SO* Take 1 tablet by mouth twice * POTASSIUM CHLORIDE ER 10 MEQ * Take 1 tablet by mouth three * AMIODARONE 200 MG TABLET Take 400mg three times daily * WARFARIN 5 MG TABLET Take 1 tablet by mouth once d* ACETAMINOPHEN 325 MG TABLET 2 tablets by ORAL/FEEDING TUB* THERAPEUTIC MULTIVITAMIN TABL* Take 1 tablet by mouth daily * ASPIRIN 81 MG CHEWABLE TABLET Take 1 tablet by mouth once d* ADVAIR DISKUS 250 MCG-50 MCG/* USE 1 INHALATION INSTRUCTE* ALBUTEROL SULFATE HFA 90 MCG/* Inhale 2 Puffs as instructed * Problem List As Of Date 06/12/2018 Noted Resolved 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 Diverticulosis [K57.90] INVALID FOR* Priority: C Elevated blood pressure reading without diagnos*INVALID FOR* Ex-smoker [Z87.891] INVALID FOR* Priority: B More... Well adult exam [Z00.00] INVALID FOR* Priority: D More... Need for lipid screening [Z13.220] INVALID FOR* More... Severe aortic stenosis [I35.0] INVALID FOR* Priority: A More... Moderate persistent asthma without complication*INVALID FOR* Priority: A More... Eczema [L30.9] INVALID FOR* Priority: D More... More... Dyslipidemia [E78.5] INVALID FOR* Priority: A More... More... Preop testing [Z01.818] INVALID FOR*05/26/2018 More... Coronary artery disease involving [place]*INVALID FOR* Priority: A More... Postprocedural hypotension [I95.81] INVALID FOR*05/24/2018 Priority: C More... Acute on chronic systolic heart failure (HCC) [*INVALID FOR* Priority: C More... Post-operative pain [G89.18] INVALID FOR* Priority: D More... Stress hyperglycemia [R73.9] INVALID FOR*05/24/2018 Priority: E More... Acute blood loss anemia [D62] INVALID FOR*05/25/2018 Priority: H More... More... More... Paroxysmal atrial fibrillation (HCC) [I48.0] INVALID FOR* Priority: A More... More... More... Transition of care performed with sharing of cl*INVALID FOR* Priority: A More... Anticoagulation management encounter [Z51.81, Z*INVALID FOR* More... Encounter Status:Closed by NELLY (PHARMACIST)DIONNE on 06/12/18 PROTIME Collected: 06/11/2018 Status: F Source: [place] 10:35 AM [facility] REPOSITORY TYPE CODE TESTS RESULT OUT OF RANGE REFERENCE UNITS LAB PSEC 9.7-13.0 sec High PT Sec 45.1 LAB INR 0.9-1.3 High PT INR 4.8 Result Comment: Vitamin K Antagonist (VKA) Therapeutic Range: INR 2 to 3 (Target INR of 2.5) Note: For patients treated with VKA drugs, such as warfarin, the [place] [employer] 2012 Guideline recommends a therapeutic INR range of 2 to 3 (target INR of 2.5). This recommendation includes high-risk patients with antiphospholipid syndrome with previous arterial or venous thromboembolism, current-generation mechanical or bioprosthetic aortic heart valve replacement. Note: Patients with mechanical aortic valve replacement and additional risk factors for thromboembolic events (atrial fibrillation, previous thromboembolism, LV dysfunction, hypercoagulable conditions) or an older generation mechanical AVR (i.e., ball in-Cage) or any mechanical MVR should have a INR therapeutic range of 2.5 to 3.5 (target INR of 3). Suleiman GH, et al. Chest 2012, 141:7S-47S Celina HOBSON et al. [facility] 2017, 70: 252-289 Performed By: #### PT #### [facility] [address], [place] [address] CBC AND DIFFERENTIAL Collected: 06/04/2018 Status: F Source: [place] 9:50 AM [facility] REPOSITORY TYPE CODE TESTS RESULT OUT OF REFERENCE UNITS RANGE LAB WBC 3.70-11.00 k/uL WBC High 11.07 LAB RBC 4.20-6.00 m/uL Low RBC 3.58 LAB HGB 13.0-17.0 g/dL Low Hemoglobin 11.2 LAB HCT 39.0-51.0 % Low Hematocrit 35.7 LAB MCV 80.0-100.0 fL MCV 99.7 LAB MCH 26.0-34.0 pG MCH 31.3 LAB MCHC 30.5-36.0 g/dL MCHC 31.4 LAB RDWCV 11.5-15.0 % RDW-CV 14.2 LAB PLTCT 150-400 k/uL Platelet High Count 472 LAB MPV 9.0-12.7 fL MPV 9.4 LAB ANEUT % Neut% 73.7 LAB AANEUT 1.45-7.50 k/uL Abs Neut High 8.17 LAB ALYMP % Lymph% 11.7 LAB AALYMP 1.00-4.00 k/uL Abs Lymph 1.29 LAB AMONO % [place]% 6.0 LAB AAMONO <0.87 k/uL Abs [place] 0.66 LAB AEOS % Eosin% 7.8 LAB AAEOS <0.46 k/uL Abs High Eosin 0.86 LAB ABASO % Baso% 0.8 LAB AABASO <0.11 k/uL Abs Baso 0.09 LAB AUNRBC 0 /100 WBC NRBCs 0.0 LAB ABNRBC <0.01 k/uL Absolute nRBC <0.01 LAB DTYP DTYPE Auto Diff Performed By: #### CBCDIF, CMP #### [facility] [address] [place], [place] [address] COMP METABOLIC PANEL Collected: 06/04/2018 Status: F Source: [place] 9:50 AM [facility] REPOSITORY TYPE CODE TESTS RESULT OUT OF REFERENCE UNITS RANGE LAB TP 6.3-8.0 g/dL Protein, Total 6.8 LAB ALB 3.9-4.9 g/dL Low Albumin 3.5 LAB CA 8.5-10.2 mg/dL Calcium, Total 8.7 LAB TBIL 0.2-1.3 mg/dL Bilirubin, Total 0.4 LAB ALKP 38-113 U/L Alkaline Phosphatase 67 LAB AST 14-40 U/L AST 18 LAB GLU 74-99 mg/dL Glucose 99 Result Comment: The [place] [employer] (ADA) provides guidance for cutoff values for fasting glucose and random glucose. The ADA defines fasting as no caloric intake for at least 8 hours. Fas ting plasma glucose results between 100 to 125 mg/dL indicate increased risk for diabetes (prediabetes). Fasting plasma glucose results greater than or equal to 126 mg/dL meet the criteria for diagnosis of diabetes. In the absence of unequivocal hyperglycemia, results should be confirmed by repeat testing. In a patient with classic symptoms of hyperglycemia or hyperglycemic crisis, random plasma glucose results greater than or equal to 200 mg/dL meet the criteria for diagnosis of diabetes. Reference: Standards of Medical Care in Diabetes 2016, [place] [employer]. Diabetes Care. 2016.39(Suppl 1). LAB BUN 9-24 mg/dL BUN 19 LAB CRET 0.73-1.22 mg/dL Creatinine 1.16 LAB NA 136-144 mmol/L Sodium 138 LAB K 3.7-5.1 mmol/L Potassium 4.4 LAB CL 97-105 mmol/L Chloride 100 LAB CO2 22-30 mmol/L CO2 26 LAB AGAP 9-18 mmol/L Anion Gap 12 LAB ALT 10-54 U/L ALT 27 LAB GFRAA eGFR- Amer. >60 LAB GFRNAA . eGFR-All Other Races >60 Result Comment: eGFR (Estimated GFR) Units of measure: mL/min/1.73 meters squared eGFR is derived from the reexpressed MDRD Study equation using the following parameters: serum creatinine, age, gender and race. The creatinine assay has been calibrated to be traceable to IDMS. An eGFR <60 mL/min/1.73m2 for >3 months is consistent with chronic kidney disease. Refer to KDOQI guidelines for clinical interpretation. In patients with unstable renal function, e.g. those with acute kidney injury, the eGFR may not accurately reflect actual GFR. Performed By: #### CBCDIF, CMP #### [facility] [address] [place], [place] [address] XR CHEST 2V FRONTAL/LAT Observed: 06/04/2018 Status: F Source: [place] 9:[address] [facility] REPOSITORY * * *Final Report* * * DATE OF EXAM: Jun 04 2018 9:45AM WOX [id number] - XR CHEST 2V FRONTAL/LAT / PROCEDURE REASON: multiple diagnoses * * * * Physician Interpretation * * * * EXAMINATION: CHEST RADIOGRAPH (2 VIEW FRONTAL and LATERAL) CLINICAL HISTORY: Status post aortic valve replacement Coronary artery disease involving [place] coronary artery of [place] heart, angina presence unspecified MQ: XC2_5 Comparison: 05/28/2018 RESULT: Lines, tubes, and devices: Mediastinal clips and wires are in place. Lungs and pleura: Fluid and atelectasis/fibrosis at the left lung base appears stable. Increasing fluid and atelectasis at the right lung base is noted. Upper lung tolbert are clear. No pneumothorax. Healed rib fractures are noted bilaterally. Cardiomegaly is seen. IMPRESSION: Increasing fluid and atelectasis at the right lung base. Stable fluid and atelectasis on the left. Cardiomegaly. Laminating Machine Tender: MILLY Transcribe Date/Time: Jun 04 2018 1:31P Dictated by : FELI OROSCO MD This examination was interpreted and the report reviewed and electronically signed by: FELI OROSCO MD on Jun 04 2018 1:35PM EST [id number] Observed: 06/04/2018 Status: COMPLETED Source: [place] 9:36 AM [facility] REPOSITORY HNO ID: [id number] Author: Loree Stephens Service: (none) Author Type: (none) Type: Progress Notes Filed: 06/04/2018 9:45 AM Note Text: Radiology Service Progress Note PATIENT NAME: Maciej Crowder DATE OF SERVICE: June 04, 2018 TIME: 9:36 AM PATIENT IDENTITY VERIFICATION COMPLETED USING TWO (2) METHODS: Patient confirmed name verbally and Date of . PATIENT GENDER DATA: Male PATIENT RELEVANT IMPLANT DATA REVIEWED: Not Applicable RADIOLOGY DEPARTMENT: General X-ray: Exam(s) Completed: Chest X-Ray PERIPHERAL IV DATA: Not applicable SIGNED BY: Loree Stephens June 04, 2018 9:36 AM ECG COMPLETE W Observed: 06/04/2018 Status: F Source: [place] INTERPRETATION 9:[address] [facility] REPOSITORY NAME : MACIEJ CROWDER PID : [id number] : 1940 Gender : Male Race : ORD : [id number] Procedure Date : Jun 04 2018 09:23:59 Edit Date : Jun 23 2018 09:11:59 Diagnosis:NORMAL SINUS RHYTHM NORMAL ECG Confirmed by KATIE AREVALO D.O. ([id number]) on 06/23/2018 9:11:39 AM Ventricular Rate : 60 BPM Atrial Rate : 60 BPM P-R Interval : 208 ms QRS Duration : 102 ms Q-T Interval : 476 ms QTC Calculation(Bezet) : 476 ms P Centerpoint : 67 degrees R Centerpoint : 43 degrees T Centerpoint : 39 degrees Test Reason : Location : 185 : [facility] Overread By : KATIE AREVALO D.O. Edited By : KATIE AREVALO D.O. Referred By : VIDAL VALDES Acquired by : EDGAR, PROGRESS Observed: 06/04/2018 Status: COMPLETED Source: [place] 8:10 AM [facility] REPOSITORY HNO ID: [id number] Author: Vidal Valdes Service: (none) Author Type: Physician Type: Progress Notes Filed: 06/04/2018 8:55 PM Note Text: Transitional Care Management Progress Note The patients TCM visit was performed within the 7 days of discharge. TCM Eligibility Documentation The following information was gathered during the initial Patient Outreach Encounter. Date of Outreach: 06/02/2018 Outreach Attempt 1: Contact Made Date of Discharge 05/30/2018 Some recent data might be hidden If no data exists please enter it manually. If data exists please delete date of discharge and date of initial contact seen below. Patient's Date of discharge: 05/30/2018 Date of initial coordinator contact after discharge: 06/02/2018 Discharge diagnosis: severe coronary artery disease, severe calcific aorta stenosis Medication review completed Yes Provider Action/FYI: During your first visit to your PCP, you will need 1) check surgical incision site; 2) remove the chest tube sutures; 3) chest x-ray, EKG, CBC, platelets and CMP ? ? Your INR today is 1.2. Your next check is due on 06/02. Your artificial insemination technician, Dr. Lyles, will manage your anticoagulation therapy ? ? Follow up with PCP in 1 week and artificial insemination technician in 4 weeks. ? ? ? Initial contact with patient post discharge, spoke to and patient. Patient identified by name and . ? TRANSITION CARE MANAGEMENT: Date of Outreach: 06/02/2018 Outreach Attempt 1: Contact Made Date of Discharge 05/30/2018 Some recent data might be hidden ? ? ? SUMMARY: -Pt discharged from [facility] on 05/30. -Follow up appointment on - reports received call from office today and is scheduled for this Weds with PCP. -Medication review done -reports has all medications. sets up - not using pill box but has one and will consider initiating once off Amiodarone tapering dose. -Admitted for: AVR - CABG x 3 ? CONCERNS: reports she is very happy with his progress. Improving each day. Denies CP, SOB, palpitations, lightheadedness, swelling or any new or worsening SX. CT sites with sutures. Otherwise incisions JOSETTE. Denies SXS of infection at incisions or CT sites. Up ambulating independently. Walking a little further each day. Reviewed all discharge instructions per AVS - verbalized understanding. Plans to call Dr. Lyles's office for 4 week f/u. Had INR today- reports lab is sending results to Dr. Lyles - he will be managing anticoagulation. Aware of PCP appt for CT suture removal f/u tests and blood work. Has people that assist with transportation. Tolerating diet . Irish Merillat Ma Provider Documentation: In follow-up of hospitalization, Maciej Crowder is a 78 year old male with the chief complaint of post hospital f/u from Aortic valve replacement with 3 vessel bypass. Patient and were told they did not need to f/u at main campus with post surgical team and therefore choose not to however this would of been more beneficial at least for the first visit with the need for lab work EKG and chest x-ray f/u. I have reviewed the patient?s last hospital course including diagnostic testing performed during this hospitalization, their discharge medications, and my assessment and plan with the patient and any family members present at today?s visit. Patient with Hx of sever and coronary Artery disease had surgery on 05/22/2018 with placement of a COW valve for the Aorta and 3 vessel bypass. He was in the ICU for 2.5 days and developed a temporary illus. Post up and then moved to the step down unit and there he developed A. Fib. This was managed with Amiodarone and beta sharon. Patient started on coumadin and will be having this managed by his artificial insemination technician. Will be seeing Dr. Lyles 07/03/2018 but talked with his office the past two days. Patient needs to have f/u labs with a CBC, CMP, chest x-ray and EKG. He also needs to have sutures from chest tube removed. Patient was d/c to home on 05/30/2018. There is no C at this point and it was not felt he needed PHYSICAL THERAPY or OT. Is supposed to get set up with cardiac rehab in the future. ROS REVIEW OF SYSTEMS GENERAL: No weight loss, malaise or fevers NECK: Negative for lumps, goiter, pain and significant neck swelling RESPIRATORY: Negative for hemoptysis, wheezing, COPD. No acute shortness of breath just with walking but is able to walk further each day. Has a mild cough occasionally productive of clear mucus. CARDIOVASCULAR: Negative for chest pain, leg swelling, hypertension, CHF or palpitations. Wearing compression socks and helps prevent swelling GI: No nausea, vomiting, or diarrhea. Only taking the senna once a day to help keep stools soft. : No history of dysuria or blood SKIN: no redness or discharge from suture sites. NEURO: No history of headaches, syncope, paralysis, seizures or tremors and no dizziness BP 134/56 Pulse 74 Resp 14 Wt 73.5 kg (162 lb) BMI 26.55 kg/m? PHYSICAL EXAMINATION: General appearance: Well appearing, alert, in no acute distress, well-hydrated, well nourished. Skin: Skin color, texture, turgor normal, no suspicious rashes or lesions, Wounds healed well. Eyes: Anicteric sclera. Pupils are equally round. Extraocular movements are intact. Neck: Supple, no adenopathy; thyroid symmetric, normal size, no bruits Lungs: lungs clear to auscultation. No wheezing, rhonchi, rales Heart: RRR without murmur, gallop, or rubs. No ectopy Abdomen: Normal abdominal exam, Abdomen soft, non-tender. Bowel sounds normal. No masses, organomegaly Extremities: No deformities, edema. Has support socks on. Musculoskeletal: Muscular strength intact Peripheral pulses: Normal Neuro: Gait normal. . Sensation to light touch intact Crainal nerves 2-12 grossly intact. In office EKG: NSR with no concerning ST or T wave changes. ASSESSMENT/PLAN: 1. Status post aortic valve replacement - ICD9: V43.3, ICD10: Z95.2 (primary diagnosis) - Clinically doing very well post up. Check - COMP METABOLIC PANEL - CBC + DIFF - XR CHEST 2V FRONTAL/LAT - ECG COMPLETE W INTERPRETATION 2. Severe aortic stenosis - ICD9: 424.1, ICD10: I35.0 - S/p COW valve replacement. Doing well. No issues at this time 3. Coronary artery disease involving [place] coronary artery of [place] heart, angina presence unspecified - ICD9: 414.01, ICD10: I25.10 - Clinically stable - Cont cardio f/u - COMP METABOLIC PANEL - CBC + DIFF - XR CHEST 2V FRONTAL/LAT - ECG COMPLETE W INTERPRETATION 4. Paroxysmal atrial fibrillation (HCC) - ICD9: 427.31, ICD10: I48.0 - Clinically stable, cont cardio f/u Check - COMP METABOLIC PANEL - CBC + DIFF - XR CHEST 2V FRONTAL/LAT - ECG COMPLETE W INTERPRETATION 5. Moderate persistent asthma without complication - ICD9: 493.90, ICD10: J45.40 Moderate persistent Asthma stable - Continue current meds - Avoidance of triggers recommended 6. Anemia due to other cause, not classified - ICD9: 285.8, ICD10: D64.89 - This is post up and dilutional check - CBC + DIFF 7. Encounter for removal of sutures - ICD9: V58.32, ICD10: Z48.02 - 4 sutures removed without difficulty. F/u in 6 months WAE sooner if issues. Vidal Valdes MD CNOV Observed: 06/04/2018 Status: COMPLETED Source: [place] 8:[address] [facility] REPOSITORY Office Visit (FAMPWS) MACIEJ CROWDER ([id number]) 1940 M Date Time Provider Department 06/04/18 8:00 AM [facility] During your visit today, we recorded the following information about you: Pulse Respiration Blood pressure Weight 74/minute 14/minute 134/56 73.5 kg Vidal Valdes MD 06/04/2018 8:55 PM Addendum Transitional Care Management Progress Note The patients TCM visit was performed within the 7 days of discharge. TCM Eligibility Documentation The following information was gathered during the initial Patient Outreach Encounter. Date of Outreach: 06/02/2018 Outreach Attempt 1: Contact Made Date of Discharge 05/30/2018 Some recent data might be hidden If no data exists please enter it manually. If data exists please delete date of discharge and date of initial contact seen below. Patient's Date of discharge: 05/30/2018 Date of initial coordinator contact after discharge: 06/02/2018 Discharge diagnosis: severe coronary artery disease, severe calcific aorta stenosis Medication review completed Yes Provider Action/FYI: During your first visit to your PCP, you will need 1) check surgical incision site; 2) remove the chest tube sutures; 3) chest x-ray, EKG, CBC, platelets and CMP ? ? Your INR today is 1.2. Your next check is due on 06/02. Your artificial insemination technician, Dr. Lyles, will manage your anticoagulation therapy ? ? Follow up with PCP in 1 week and artificial insemination technician in 4 weeks. ? ? ? Initial contact with patient post discharge, spoke to and patient. Patient identified by name and . ? TRANSITION CARE MANAGEMENT: Date of Outreach: 06/02/2018 Outreach Attempt 1: Contact Made Date of Discharge 05/30/2018 Some recent data might be hidden ? ? ? SUMMARY: -Pt discharged from [facility] on 05/30. -Follow up appointment on - reports received call from office today and is scheduled for this Weds with PCP. -Medication review done -reports has all medications. sets up - not using pill box but has one and will consider initiating once off Amiodarone tapering dose. -Admitted for: AVR - CABG x 3 ? CONCERNS: reports she is very happy with his progress. Improving each day. Denies CP, SOB, palpitations, lightheadedness, swelling or any new or worsening SX. CT sites with sutures. Otherwise incisions JOSETTE. Denies SXS of infection at incisions or CT sites. Up ambulating independently. Walking a little further each day. Reviewed all discharge instructions per AVS - verbalized understanding. Plans to call Dr. Lyles's office for 4 week f/u. Had INR today- reports lab is sending results to Dr. Lyles - he will be managing anticoagulation. Aware of PCP appt for CT suture removal f/u tests and blood work. Has people that assist with transportation. Tolerating diet . [place] [employer] Ma Provider Documentation: In follow-up of hospitalization, Maciej Crowder is a 78 year old male with the chief complaint of post hospital f/u from Aortic valve replacement with 3 vessel bypass. Patient and were told they did not need to f/u at [facility] with post surgical team and therefore choose not to however this would of been more beneficial at least for the first visit with the need for lab work EKG and chest x-ray f/u. I have reviewed the patient?s last hospital course including diagnostic testing performed during this hospitalization, their discharge medications, and my assessment and plan with the patient and any family members present at today?s visit. Patient with Hx of sever and coronary Artery disease had surgery on 05/22/2018 with placement of a COW valve for the Aorta and 3 vessel bypass. He was in the ICU for 2.5 days and developed a temporary illus. Post up and then moved to the step down unit and there he developed A. Fib. This was managed with Amiodarone and beta sharon. Patient started on coumadin and will be having this managed by his artificial insemination technician. Will be seeing Dr. Lyles 07/03/2018 but talked with his office the past two days. Patient needs to have f/u labs with a CBC, CMP, chest x-ray and EKG. He also needs to have sutures from chest tube removed. Patient was d/c to home on 05/30/2018. There is no C at this point and it was not felt he needed PHYSICAL THERAPY or OT. Is supposed to get set up with cardiac rehab in the future. ROS REVIEW OF SYSTEMS GENERAL: No weight loss, malaise or fevers NECK: Negative for lumps, goiter, pain and significant neck swelling RESPIRATORY: Negative for hemoptysis, wheezing, COPD. No acute shortness of breath just with walking but is able to walk further each day. Has a mild cough occasionally productive of clear mucus. CARDIOVASCULAR: Negative for chest pain, leg swelling, hypertension, CHF or palpitations. Wearing compression socks and helps prevent swelling GI: No nausea, vomiting, or diarrhea. Only taking the senna once a day to help keep stools soft. : No history of dysuria or blood SKIN: no redness or discharge from suture sites. NEURO: No history of headaches, syncope, paralysis, seizures or tremors and no dizziness BP 134/56 Pulse 74 Resp 14 Wt 73.5 kg (162 lb) BMI 26.55 kg/m? PHYSICAL EXAMINATION: General appearance: Well appearing, alert, in no acute distress, well-hydrated, well nourished. Skin: Skin color, texture, turgor normal, no suspicious rashes or lesions, Wounds healed well. Eyes: Anicteric sclera. Pupils are equally round. Extraocular movements are intact. Neck: Supple, no adenopathy; thyroid symmetric, normal size, no bruits Lungs: lungs clear to auscultation. No wheezing, rhonchi, rales Heart: RRR without murmur, gallop, or rubs. No ectopy Abdomen: Normal abdominal exam, Abdomen soft, non-tender. Bowel sounds normal. No masses, organomegaly Extremities: No deformities, edema. Has support socks on. Musculoskeletal: Muscular strength intact Peripheral pulses: Normal Neuro: Gait normal. . Sensation to light touch intact Crainal nerves 2-12 grossly intact. In office EKG: NSR with no concerning ST or T wave changes. ASSESSMENT/PLAN: 1. Status post aortic valve replacement - ICD9: V43.3, ICD10: Z95.2 (primary diagnosis) - Clinically doing very well post up. Check - COMP METABOLIC PANEL - CBC + DIFF - XR CHEST 2V FRONTAL/LAT - ECG COMPLETE W INTERPRETATION 2. Severe aortic stenosis - ICD9: 424.1, ICD10: I35.0 - S/p COW valve replacement. Doing well. No issues at this time 3. Coronary artery disease involving [place] coronary artery of [place] heart, angina presence unspecified - ICD9: 414.01, ICD10: I25.10 - Clinically stable - Cont cardio f/u - COMP METABOLIC PANEL - CBC + DIFF - XR CHEST 2V FRONTAL/LAT - ECG COMPLETE W INTERPRETATION 4. Paroxysmal atrial fibrillation (HCC) - ICD9: 427.31, ICD10: I48.0 - Clinically stable, cont cardio f/u Check - COMP METABOLIC PANEL - CBC + DIFF - XR CHEST 2V FRONTAL/LAT - ECG COMPLETE W INTERPRETATION 5. Moderate persistent asthma without complication - ICD9: 493.90, ICD10: J45.40 Moderate persistent Asthma stable - Continue current meds - Avoidance of triggers recommended 6. Anemia due to other cause, not classified - ICD9: 285.8, ICD10: D64.89 - This is post up and dilutional check - CBC + DIFF 7. Encounter for removal of sutures - ICD9: V58.32, ICD10: Z48.02 - 4 sutures removed without difficulty. F/u in 6 months WAE sooner if issues. Vidal Valdes MD Referring Provider: SELF [[id number]] Allergies As of Date: 06/04/2018 Noted Allergy Reaction LIPITOR (ATORVASTATIN CALCIUM) 11/22/2017 14 - Other: See Comments Comments: Chills and leg pain. Date Reviewed: 06/04/2018 Reviewed by: Vidal Valdes - Fully Assessed Reason for Visit: Transition Of Care [4074] Cmt: TCM Primary Visit Diagnosis:Status post aortic valve replacement [Z95.2] Comment:COW valve 05/22/2018 Other Visit Diagnoses:Severe aortic stenosis [I35.0] Coronary artery disease involving [place] coronary artery of [place] heart, angina presence unspecified [I25.10] Paroxysmal atrial fibrillation (HCC) [I48.0] Moderate persistent asthma without complication [J45.40] Anemia due to other cause, not classified [D64.89] Encounter for removal of sutures [Z48.02] Order(s):furosemide (LASIX) 20 mg tabletTake 1 tablet by mouth twice daily.Disp: 60 tabletRfl: 5 metoprolol tartrate, short acting, (LOPRESSOR) 25 mg tabletTake 2 tablets by mouth twice daily.Disp: 120 tabletRfl: [address] (PROTONIX) 20 mg tabletTake 1 tablet by mouth DAILY (6 AM).Disp: 30 tabletRfl: 5 pravastatin (PRAVACHOL) 40 mg tabletTake 1 tablet by mouth daily at bedtime.Disp: 30 tabletRfl: 5 senna-docusate (SENNA-S) 8.6-50 mg per tabletTake 1 tablet by mouth twice daily.Disp: 60 tabletRfl: 5 potassium chloride ER (K-DUR, KLOR-CON) 10 mEq tabletTake 1 tablet by mouth three times daily.Disp: 90 tabletRfl: 5 amiodarone (PACERONE) 200 mg tabletTake 400mg three times daily for 1 day, then 400mg twice daily for 5 days, then 400mg daily for 5 days, and then 200mg daily for [address] Altman: 57 tabletRfl: 0 warfarin (COUMADIN) 5 mg tabletTake 1 tablet by mouth once daily. Per Dr. Altman: 15 tabletRfl: 0 ECG COMPLETE W INTERPRETATION [ECG01] Order #: [id number] FUTURE COMP METABOLIC PANEL [SQCMP] Order #: [id number] FUTURE CBC + DIFF [SQCBCDIF] Order #: [id number] FUTURE XR CHEST 2V FRONTAL/LAT [5356538] Order #: [id number] FUTURE Prescriptions as of 06/04/2018 Sig: FUROSEMIDE 20 MG TABLET Take 1 tablet by mouth twice * METOPROLOL TARTRATE 25 MG TAB* Take 2 tablets by mouth twice* PANTOPRAZOLE 20 MG TABLET,DEL* Take 1 tablet by mouth DAILY * PRAVASTATIN 40 MG TABLET Take 1 tablet by mouth daily * SENNOSIDES 8.6 MG-DOCUSATE SO* Take 1 tablet by mouth twice * POTASSIUM CHLORIDE ER 10 MEQ * Take 1 tablet by mouth three * AMIODARONE 200 MG TABLET Take 400mg three times daily * WARFARIN 5 MG TABLET Take 1 tablet by mouth once d* ACETAMINOPHEN 325 MG TABLET 2 tablets by ORAL/FEEDING TUB* THERAPEUTIC MULTIVITAMIN TABL* Take 1 tablet by mouth daily * ASPIRIN 81 MG CHEWABLE TABLET Take 1 tablet by mouth once d* ADVAIR DISKUS 250 MCG-50 MCG/* USE 1 INHALATION INSTRUCTE* ALBUTEROL SULFATE HFA 90 MCG/* Inhale 2 Puffs as instructed * Problem List As Of Date 06/04/2018 Noted Resolved 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 Diverticulosis [K57.90] INVALID FOR* Priority: C Elevated blood pressure reading without diagnos*INVALID FOR* Ex-smoker [Z87.891] INVALID FOR* Priority: B More... Well adult exam [Z00.00] INVALID FOR* Priority: D More... Need for lipid screening [Z13.220] INVALID FOR* More... Severe aortic stenosis [I35.0] INVALID FOR* Priority: A More... Moderate persistent asthma without complication*INVALID FOR* Priority: A More... Eczema [L30.9] INVALID FOR* Priority: D More... More... Dyslipidemia [E78.5] INVALID FOR* Priority: A More... More... Preop testing [Z01.818] INVALID FOR*05/26/2018 More... Coronary artery disease involving [place]*INVALID FOR* Priority: A More... Postprocedural hypotension [I95.81] INVALID FOR*05/24/2018 Priority: C More... Acute on chronic systolic heart failure (HCC) [*INVALID FOR* Priority: C More... Post-operative pain [G89.18] INVALID FOR* Priority: D More... Stress hyperglycemia [R73.9] INVALID FOR*05/24/2018 Priority: E More... Acute blood loss anemia [D62] INVALID FOR*05/25/2018 Priority: H More... More... More... Paroxysmal atrial fibrillation (HCC) [I48.0] INVALID FOR* Priority: A More... More... More... Transition of care performed with sharing of cl*INVALID FOR* Priority: A More... Anticoagulation management encounter [Z51.81, Z*INVALID FOR* More... Prescriptions ordered this encounter Disp Refills Start End FUROSEMIDE 20 MG TABLET 60 t* 5 06/04/2018 Route: ORAL Sig: Take 1 tablet by mouth twice daily. METOPROLOL TARTRATE 25 MG TABLET 120 * 5 06/04/2018 07/04/2018 Route: ORAL Sig: Take 2 tablets by mouth twice daily. PANTOPRAZOLE 20 MG TABLET,DELAYED RE* 30 t* 5 06/04/2018 07/04/2018 Route: ORAL Sig: Take 1 tablet by mouth DAILY (6 AM). PRAVASTATIN 40 MG TABLET 30 t* 5 06/04/2018 07/04/2018 Route: ORAL Sig: Take 1 tablet by mouth daily at bedtime. SENNOSIDES 8.6 MG-DOCUSATE SODIUM 50* 60 t* 5 06/04/2018 Route: ORAL Sig: Take 1 tablet by mouth twice daily. POTASSIUM CHLORIDE ER 10 MEQ TABLET,* 90 t* 5 06/04/2018 Route: ORAL Sig: Take 1 tablet by mouth three times daily. AMIODARONE 200 MG TABLET 57 t* 0 06/04/2018 Class: Med Update Sig: Take 400mg three times daily for 1 day, then 400mg twice daily for 5 days, then 400mg daily for 5 days, and then 200mg daily for [address] Lyles WARFARIN 5 MG TABLET 15 t* 0 06/04/2018 Class: Med Update Route: ORAL Sig: Take 1 tablet by mouth once daily. Per Dr. Lyles Medications Discontinued During This Encounter amiodarone (PACERONE) 200 mg tablet 57 t* 0 05/30/2018 06/04/2018 Sig: Take 400mg three times daily for 1 day, then 400mg twice daily for 5 days, then 400mg daily for 5 days, and then 200mg daily for 21 days Disc: Adjust Sig - Block E-Cancel warfarin (COUMADIN) 5 mg tablet 15 t* 0 05/30/2018 06/04/2018 Route: ORAL Sig: Take 1 tablet by mouth once daily. Disc: Adjust Sig - Block E-Cancel furosemide (LASIX) 20 mg tablet 28 t* 0 05/30/2018 06/04/2018 Route: ORAL Sig: Take 1 tablet by mouth twice daily. Disc: Reason for discontinue is not on file. metoprolol tartrate, short acting, (* 120 * 0 05/30/2018 06/04/2018 Route: ORAL Sig: Take 2 tablets by mouth twice daily. Disc: Reason for discontinue is not on file. pantoprazole DR (PROTONIX) 20 mg tab* 30 t* 0 05/31/2018 06/04/2018 Route: ORAL Sig: Take 1 tablet by mouth DAILY (6 AM). Disc: Reason for discontinue is not on file. pravastatin (PRAVACHOL) 40 mg tablet 30 t* 0 05/30/2018 06/04/2018 Route: ORAL Sig: Take 1 tablet by mouth daily at bedtime. Disc: Reason for discontinue is not on file. senna-docusate (SENNA-S) 8.6-50 mg p* 60 t* 0 05/30/2018 06/04/2018 Route: ORAL Sig: Take 1 tablet by mouth twice daily. Patient taking differently: Take 1 tablet by mouth once daily. Disc: Reason for discontinue is not on file. potassium chloride ER (K-DUR, KLOR-C* 14 t* 0 05/30/2018 06/04/2018 Route: ORAL Sig: Take 1-6 tablets by mouth once daily. Patient taking differently: Take 10 mEq by mouth three times daily. Disc: Reason for discontinue is not on file. Disposition: Return in about 6 months (around 12/02/2018) for complete PE. Follow-up and Disposition History Recorded Encounter Status:Closed by VIDAL VALDES on 06/04/18 PROGRESS Observed: 06/02/2018 Status: COMPLETED Source: [place] 2:12 PM [facility] REPOSITORY O ID: [id number] Author: Claudia DawsonRn) CHERI Brewer Service: (none) Author Type: Registered Nurse Type: Progress Notes Filed: 06/02/2018 2:35 PM Note Text: TRANSITION CARE MANAGEMENT (TCM) INITIAL CONTACT Provider Action/FYI: During your first visit to your PCP, you will need 1) check surgical incision site; 2) remove the chest tube sutures; 3) chest x-ray, EKG, CBC, platelets and CMP Your INR today is 1.2. Your next check is due on 06/02. Your artificial insemination technician, Dr. Lyles, will manage your anticoagulation therapy Follow up with PCP in 1 week and artificial insemination technician in 4 weeks. Initial contact with patient post discharge, spoke to and patient. Patient identified by name and . TRANSITION CARE MANAGEMENT: Date of Outreach: 06/02/2018 Outreach Attempt 1: Contact Made Date of Discharge 05/30/2018 Some recent data might be hidden SUMMARY: -Pt discharged from [facility] on 05/30. -Follow up appointment on - reports received call from office today and is scheduled for this Weds with PCP. -Medication review done -reports has all medications. sets up - not using pill box but has one and will consider initiating once off Amiodarone tapering dose. -Admitted for: AVR - CABG x 3 CONCERNS: reports she is very happy with his progress. Improving each day. Denies CP, SOB, palpitations, lightheadedness, swelling or any new or worsening SX. CT sites with sutures. 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 Denies SXS of infection at incisions or CT sites. Up ambulating independently. Walking a little further each day. Reviewed all discharge instructions per AVS - verbalized understanding. Plans to call Dr. Lyles's office for 4 week f/u. Had INR today- reports lab is sending results to Dr. Lyles - he will be managing anticoagulation. Aware of PCP appt for CT suture removal f/u tests and blood work. Has people that assist with transportation. Tolerating diet . Denies further concerns or questions. [facility] contact number provided. NEW MEDICATIONS: acetaminophen 325 mg tablet Commonly known as: TYLENOL 2 tablets by ORAL/FEEDING TUBE route every 6 hours as needed. amiodarone 200 mg tablet Commonly known as: PACERONE Take 400mg three times daily for 1 day, then 400mg twice daily for 5 days, then 400mg daily for 5 days, and then 200mg daily for 21 days aspirin 81 mg chewable tablet Take 1 tablet by mouth once daily. Replaces: aspirin, enteric coated 81 mg EC tablet furosemide 20 mg tablet Commonly known as: LASIX Take 1 tablet by mouth twice daily. metoprolol tartrate (short acting) 25 mg tablet Commonly known as: LOPRESSOR Take 2 tablets by mouth twice daily. pantoprazole DR 20 mg tablet Commonly known as: PROTONIX Take 1 tablet by mouth DAILY (6 AM). potassium chloride ER 10 mEq tablet Commonly known as: K-DUR, KLOR-CON Take 1-6 tablets by mouth once daily. senna-docusate 8.6-50 mg per tablet Commonly known as: SENNA-S Take 1 tablet by mouth twice daily. therapeutic multivitamin tablet Commonly known as: THERA VITAMIN Take 1 tablet by mouth daily with breakfast. warfarin 5 mg tablet Commonly known as: COUMADIN Take 1 tablet by mouth once daily. CHANGED MEDICATIONS pravastatin 40 mg tablet Commonly known as: PRAVACHOL Take 1 tablet by mouth daily at bedtime. MEDS HELD/DISCONTINUED: aspirin, enteric coated 81 mg EC tablet Commonly known as: ADULT LOW DOSE ASPIRIN Replaced by: aspirin 81 mg chewable tablet diltiazem CD 180 mg 24 hr capsule Commonly known as: CARDIZEM CD metoprolol succinate ER 25 mg 24 hr tablet Commonly known as: TOPROL XL mupirocin 2 % ointment Commonly known as: BACTROBAN triamcinolone acetonide 0.1 BRIEF HOSPITAL COURSE: The following content has been copied and pasted from patient's discharge summary. Hospital Course: How was the Reason for Hospitalization Addressed: Yes - s/p CABG - s/p AV replacement ? What were the Active Issues: - CAD s/p CABG - Aortic stenosis s/p AV replacement - Post operative atrial fibrillation ? Surgical Pathology/Microbiology: FINAL DIAGNOSIS Aortic valve, excision - Severe calcification and severe fibrosis (gross diagnosis only). ? ? Hospital Course Complicated by: Post operative Atrial Fibrillation/Atrial Flutter, resolved Post operative Ileus, resolved ? Extended Hospital Stay Due to: No ? Specific Medication Changes: Start anticoagulation therapy with coumadin ? Pain: Adequate management. ? Surgical Incisions/Wounds: Wash the incision sites daily with regular soap (not perfumed soap or shower gels) and water. Keep the area clean and dry when you are not showering. Do not use creams, lotions or ointment on the incision sites. Do not soak in a tub, pool or hot tub until your incisions are completely healed. ? ? Patient Condition at Discharge: Improved Disposition: Home/Self Care - Claudia Brewer RN, [facility] [phone] PROTIME Collected: 06/02/2018 Status: F Source: [place] 11:[address] [facility] REPOSITORY TYPE CODE TESTS RESULT OUT OF RANGE REFERENCE UNITS LAB PSEC 9.7-13.0 sec High PT Sec 30.8 LAB INR 0.9-1.3 High PT INR 3.2 Result Comment: Vitamin K Antagonist (VKA) Therapeutic Range: INR 2 to 3 (Target INR of 2.5) Note: For patients treated with VKA drugs, such as warfarin, the [employer] 2012 Guideline recommends a therapeutic INR range of 2 to 3 (target INR of 2.5). This recommendation includes high-risk patients with antiphospholipid syndrome with previous arterial or venous thromboembolism, current-generation mechanical or bioprosthetic aortic heart valve replacement. Note: Patients with mechanical aortic valve replacement and additional risk factors for thromboembolic events (atrial fibrillation, previous thromboembolism, LV dysfunction, hypercoagulable conditions) or an older generation mechanical AVR (i.e., ball in-Cage) or any mechanical MVR should have a INR therapeutic range of 2.5 to 3.5 (target INR of 3). Suleiman GH, et al. Chest 2012, 141:7S-47S Celina RA, et al. [facility] 2017, 70: 252-289 Performed By: #### PT #### [facility] [address] [address] PROGRESS Observed: 06/02/2018 Status: COMPLETED Source: [place] 7:[address] [facility] REPOSITORY HNO ID: [id number] Author: Dionne Villegas Pharmd Service: (none) Author Type: Pharmacist Type: Progress Notes Filed: 06/05/2018 2:49 PM Note Text: TRANSITION CARE MANAGEMENT (TCM) PHARMACY CONTACT Provider Action/FYI: Dr. Valdes -- ? Pt discharged on 05/30 on Lasix 20mg BID, and Potassium 10 mEq 1-6 tabs daily. reports she has been giving Laisx as directed, and Potassium 10 mEq 1 tab TID. Noted last dose of Potassium given during admission was 20 mEq on 05/26. Pt has a TCM visit scheduled with you tomorrow (06/04) please consider checking potassium levels and adjusting Potassium dose if appropriate. Thank you. Results for MACIEJ CROWDER ( ) as of 06/03/2018 09:25 Ref. Range 05/28/2018 05:53 05/29/2018 04:58 05/30/2018 05:13 Potassium Latest Ref Range: 3.7 - 5.1 mmol/L 4.8 4.2 4.1 Initial contact with patient post discharge, spoke to patient and spouse, Ángel,. Patient identified by name and . Summary: -Pt discharged from [facility] on 05/30/18. -Follow up appointment on 06/04/18 with PCP. -Medication review done Yes. -Admitted for Severe coronary artery disease, severe calcific aortic ?stenosis. Patient was contacted by telephone, identified for pharmacist care from discharge call list, and gave consent to manage medications related to transitional care management pursuant to the consult agreement with the [facility]. Patient Concerns: Briefly spoke with patient who requested to have meds reviewed with his , Ángel. Ángel reports no questions or concerns regarding medications. Notes that she spoke to Dr. Lyles's office yesterday (06/02) regarding INR/Warfarin management, and that she provided the [facility] lab with Dr. Lyles's fax number for INR results, but notes she has not heard back regarding results. Advised that if she does not hear back this morning, to call Dr. Lyles's office this afternoon prior to pt's next scheduled dose of Warfarin at 5pm. History of Present Illness: The following content has been copied and pasted from patient's discharge summary. Reason for Hospitalization: This is a 78-year-old gentleman with a long history of ?coronary disease and severe aortic stenosis. Operations during Hospitalization: Median sternotomy, open heart, aortic valve replacement with 25 ?CE valve. ?Coronary artery bypass x3 with ROSA to LAD, reverse vein graft to obtuse ?marginal circumflex and PDA of the right coronary artery. ? Hospital Course: How was the Reason for Hospitalization Addressed: Yes - s/p CABG - s/p AV replacement ? What were the Active Issues: - CAD s/p CABG - Aortic stenosis s/p AV replacement - Post operative atrial fibrillation ? Surgical Pathology/Microbiology: FINAL DIAGNOSIS Aortic valve, excision - Severe calcification and severe fibrosis (gross diagnosis only). ? ? Hospital Course Complicated by: Post operative Atrial Fibrillation/Atrial Flutter, resolved Post operative Ileus, resolved ? Extended Hospital Stay Due to: No ? Specific Medication Changes: Start anticoagulation therapy with coumadin ? Pain: Adequate management. ? Surgical Incisions/Wounds: Wash the incision sites daily with regular soap (not perfumed soap or shower gels) and water. Keep the area clean and dry when you are not showering. Do not use creams, lotions or ointment on the incision sites. Do not soak in a tub, pool or hot tub until your incisions are completely healed. ? Patient Condition at Discharge: Improved Disposition: Home/Self Care PAST MEDICAL HISTORY Diagnosis Date - Aortic stenosis, moderate 08/09/2015 10/19/2014 echocardiogram. - Diverticulitis - Diverticulosis 09/18/2013 - Inguinal hernia without mention of obstruction or gangrene, unilateral or unspecified, (not specified as recurrent) - Moderate persistent asthma without complication 08/09/2015 09/29/14 Spirometry: ZLT37-31, 1.45 L/s, 65% pred. +41% post BD 08/09/15 Gabe: 109 (normal < 25). - Multiple fractures of ribs of both sides 2012 Work accident - Other specified type of hydrocele - Pneumothorax 2012 Work accident Social History Substance Use Topics - Smoking status: Former Smoker Types: Cigars - Smokeless tobacco: Never Used Comment: Occasionally smoked cigars - Alcohol use No Immunization History Administered Date(s) Administered Pneumococcal-13 Vac Conjugate 09/22/2014 Pneumovax 02/09/2008 11/16/2016 Last 3 Encounter BP Readings: Date: BP: 05/20/2018 147/70 05/05/2018 129/61 04/15/2018 131/74 eGFR-All Other Races (.) Date Value 05/30/2018 >60 eGFR- (no units) Date Value 05/30/2018 >60 Estimated Creatinine Clearance: 57.1 mL/min (based on SCr of 0.96 mg/dL). ALLERGIES Allergen Reactions - Lipitor [Atorvastat* Other: See Comments Chills and leg pain. Preferred pharmacy: [facility] [address] [place] [id number] - [address] [facility] - [phone] [address] [facility] [address] [facility] [address] [place] [address] - [address] [facility] - [phone] [id number] [address] [facility] [address] e- [facility] [place] [address] - [address] [facility] - [phone] [address] [facility] [address] Medication Reconciliation: Legend: Stopped, New, Changed, Added to list Medication List Medication Directions Comments Action/Plan acetaminophen (TYLENOL) 325 mg tablet 2 tablets by ORAL/FEEDING TUBE route every 6 hours as needed. E-rx to [facility] Taking as prescribed without any issues ADVAIR DISKUS 250-50 mcg/dose dsdv USE 1 INHALATION INSTRUCTED TWICE A DAY RINSE AND GARGLE MOUTH WITH WATER AFTER EACH USE Taking as prescribed without any issues albuterol HFA (PROAIR HFA) 90 mcg/actuation inhaler Inhale 2 Puffs as instructed every 6 hours as needed. Taking as prescribed without any issues amiodarone (PACERONE) 200 mg tablet Take 400mg three times daily for 1 day, then 400mg twice daily for 5 days, then 400mg daily for 5 days, and then 200mg daily for 21 days E-rx to [facility] Taking as prescribed without any issues. reports clear understanding of SIG, confirms currently giving 400mg (2 tabs) BID aspirin 81 mg chewable tablet Take 1 tablet by mouth once daily. E-rx to [facility] Changed to chewable Taking as prescribed without any issues Discontinued: 05/30/2018 12:52 PM Discontinued: 05/30/2018 12:52 PM confirms pt no longer taking furosemide (LASIX) 20 mg tablet Take 1 tablet by mouth twice daily. E-rx to [facility] Taking as prescribed without any issues Discontinued: 05/30/2018 12:52 PM confirms pt no longer taking metoprolol tartrate, short acting, (LOPRESSOR) 25 mg tablet Take 2 tablets by mouth twice daily. E-rx to [facility] Dose increase and formulation change from XL Taking as prescribed without any issues Discontinued: 05/30/2018 12:52 PM confirms pt no longer taking pantoprazole DR (PROTONIX) 20 mg tablet Take 1 tablet by mouth DAILY (6 AM). E-rx to [facility] Taking as prescribed without any issues potassium chloride ER (K-DUR, KLOR-CON) 10 mEq tablet Take 1-6 tablets by mouth once daily. E-rx to [facility] Last given 05/26 20 mEq reports giving 1 tab (10 mEq) TID, notes she was unsure how to give based on AVS/SIG. Ref. Range 05/29/2018 04:58 05/30/2018 05:13 Potassium Latest Ref Range: 3.7 - 5.1 mmol/L 4.2 4.1 Updated SIG, routing to PCP to review dosing and consider repeat labs at [facility] tomorrow (06/04) Discontinued: 05/30/2018 12:52 PM pravastatin (PRAVACHOL) 40 mg tablet Take 1 tablet by mouth daily at bedtime. E-rx to [facility] Dose increase Taking as prescribed without any issues senna-docusate (SENNA-S) 8.6-50 mg per tablet Take 1 tablet by mouth twice daily. E-rx to [facility] reports giving 1 tab QD, reports daily dosing working well to control constipation Updated SIG therapeutic multivitamin (THERA VITAMIN) tablet Take 1 tablet by mouth daily with breakfast. E-rx to [facility] Taking as prescribed without any issues Discontinued: 05/30/2018 12:52 PM Last ordered 11/22/17 warfarin (COUMADIN) 5 mg tablet Take 1 tablet by mouth once daily. E-rx to [facility] INR due 06/02, per AVS being managed by outside Cardio (Dr. Lyles) confirms pt taking 1 tab (5mg) QD at 5pm, reports they had labs done at [facility] yesterday and provide lab with fax # so labs could be sent to Dr. Lyles. reports she spoke with Dr. Lyles's office yesterday prior to lab draw, but has not heard back regarding results. agrees to contact Dr. Lyles's office for results/updated dosing this afternoon (06/03) if she does not hear from them this AM. Per 05/30 Card Progress Note: Dr. Lyles (artificial insemination technician) will manage coumadin. Provide script for 1st lab draw and have results faxed to [phone] Dr. Lyles's office. The lab is in the same building as his office Assessment: ? Source of medication information: Medication list ? Were adherence barriers identified? No ? Every medication has an indication: Yes ? Medical problems with no assigned therapy: No Additional follow up: ? confirms 06/04 PCP visit. Interventions Made: Patient education, Medication counseling, Labs ordered and Medication reconciliation completed Time spent on patient: 60-75 minutes Dionne Villegas, Lencho June 02, 2018 7:52 AM [facility] Observed: 06/02/2018 Status: COMPLETED Source: [place] 12:[address] [facility] REPOSITORY Letter Text June 02, 2018 Maciej Crowder [address] [facility] [address] Dear Mr. Crowder, The nurses and staff of [facility] nursing unit at [facility] hope this letter finds you feeling well and progressing in your recovery. It was an honor for us to provide your nursing care. We know that placing our Patients First and maintaining a culture of continuous improvement, each and every day, are essential to the success of our organization. We want to hear from you. If you have any comments, questions or concerns about your hospital stay, please feel free to contact me, Mansi Hilario RN at [phone] or e-mail [email or web address]. Additionally, you will receive a survey in the mail asking you to rate the care you received while in the hospital. Please take the time to complete and send back the survey. I personally review all the results and would appreciate your feedback. Please consider completing this survey for each individual visit. Thank you in advance for your participation and thank you for choosing the [facility] for your healthcare needs. Sincerely, Mansi Hilario RN Nurse Non Licensed Operator -1 Cardiovascular Surgery Step-down Unit CNPTOUTREACH Observed: 06/02/2018 Status: COMPLETED Source: [place] 12:[address] [facility] REPOSITORY Patient Outreach (FAMPWS) MACIEJ CROWDER ([id number]) 1940 M Date Time Provider Department 06/02/18 CLAUDIA BREWER (RN) TERESAPWS During your visit today, we recorded the following information about you: Claudia Brewer RN, RN 06/02/2018 2:35 PM Signed TRANSITION CARE MANAGEMENT (TCM) INITIAL CONTACT Provider Action/FYI: During your first visit to your PCP, you will need 1) check surgical incision site; 2) remove the chest tube sutures; 3) chest x-ray, EKG, CBC, platelets and CMP Your INR today is 1.2. Your next check is due on 06/02. Your artificial insemination technician, Dr. Lyles, will manage your anticoagulation therapy Follow up with PCP in 1 week and artificial insemination technician in 4 weeks. Initial contact with patient post discharge, spoke to and patient. Patient identified by name and . TRANSITION CARE MANAGEMENT: Date of Outreach: 06/02/2018 Outreach Attempt 1: Contact Made Date of Discharge 05/30/2018 Some recent data might be hidden SUMMARY: -Pt discharged from [facility] on 05/30. -Follow up appointment on - reports received call from office today and is scheduled for this Weds with PCP. -Medication review done -reports has all medications. sets up - not using pill box but has one and will consider initiating once off Amiodarone tapering dose. -Admitted for: AVR - CABG x 3 CONCERNS: reports she is very happy with his progress. Improving each day. Denies CP, SOB, palpitations, lightheadedness, swelling or any new or worsening SX. CT sites with sutures. Otherwise incisions JOSETTE. Denies SXS of infection at incisions or CT sites. Up ambulating independently. Walking a little further each day. Reviewed all discharge instructions per AVS - verbalized understanding. Plans to call Dr. Lyles's office for 4 week f/u. Had INR today- reports lab is sending results to Dr. Lyles - he will be managing anticoagulation. Aware of PCP appt for CT suture removal f/u tests and blood work. Has people that assist with transportation. Tolerating diet . Denies further concerns or questions. TCM contact number provided. NEW MEDICATIONS: acetaminophen 325 mg tablet Commonly known as: TYLENOL 2 tablets by ORAL/FEEDING TUBE route every 6 hours as needed. amiodarone 200 mg tablet Commonly known as: PACERONE Take 400mg three times daily for 1 day, then 400mg twice daily for 5 days, then 400mg daily for 5 days, and then 200mg daily for 21 days aspirin 81 mg chewable tablet Take 1 tablet by mouth once daily. Replaces: aspirin, enteric coated 81 mg EC tablet furosemide 20 mg tablet Commonly known as: LASIX Take 1 tablet by mouth twice daily. metoprolol tartrate (short acting) 25 mg tablet Commonly known as: LOPRESSOR Take 2 tablets by mouth twice daily. pantoprazole DR 20 mg tablet Commonly known as: PROTONIX Take 1 tablet by mouth DAILY (6 AM). potassium chloride ER 10 mEq tablet Commonly known as: K-DUR, KLOR-CON Take 1-6 tablets by mouth once daily. senna-docusate 8.6-50 mg per tablet Commonly known as: SENNA-S Take 1 tablet by mouth twice daily. therapeutic multivitamin tablet Commonly known as: THERA VITAMIN Take 1 tablet by mouth daily with breakfast. warfarin 5 mg tablet Commonly known as: COUMADIN Take 1 tablet by mouth once daily. CHANGED MEDICATIONS pravastatin 40 mg tablet Commonly known as: PRAVACHOL Take 1 tablet by mouth daily at bedtime. MEDS HELD/DISCONTINUED: aspirin, enteric coated 81 mg EC tablet Commonly known as: ADULT LOW DOSE ASPIRIN Replaced by: aspirin 81 mg chewable tablet diltiazem CD 180 mg 24 hr capsule Commonly known as: CARDIZEM CD metoprolol succinate ER 25 mg 24 hr tablet Commonly known as: TOPROL XL mupirocin 2 % ointment Commonly known as: BACTROBAN triamcinolone acetonide 0.1 BRIEF HOSPITAL COURSE: The following content has been copied and pasted from patient's discharge summary. Hospital Course: How was the Reason for Hospitalization Addressed: Yes - s/p CABG - s/p AV replacement ? What were the Active Issues: - CAD s/p CABG - Aortic stenosis s/p AV replacement - Post operative atrial fibrillation ? Surgical Pathology/Microbiology: FINAL DIAGNOSIS Aortic valve, excision - Severe calcification and severe fibrosis (gross diagnosis only). ? ? Hospital Course Complicated by: Post operative Atrial Fibrillation/Atrial Flutter, resolved Post operative Ileus, resolved ? Extended Hospital Stay Due to: No ? Specific Medication Changes: Start anticoagulation therapy with coumadin ? Pain: Adequate management. ? Surgical Incisions/Wounds: Wash the incision sites daily with regular soap (not perfumed soap or shower gels) and water. Keep the area clean and dry when you are not showering. Do not use creams, lotions or ointment on the incision sites. Do not soak in a tub, pool or hot tub until your incisions are completely healed. ? ? Patient Condition at Discharge: Improved Disposition: Home/Self Care Claudia Brewer RN, [facility]-[phone] Allergies As of Date: 06/02/2018 Noted Allergy Reaction LIPITOR (ATORVASTATIN CALCIUM) 11/22/2017 14 - Other: See Comments Comments: Chills and leg pain. Date Reviewed: 05/30/2018 Reviewed by: Rosi (Cheri) CHERI Slaughter - Fully Assessed Reason for Visit: Transition Of Care [4074] Cmt: hospital d/c 05/30 cabg x 3, AVR Prescriptions as of 06/02/2018 Sig: ACETAMINOPHEN 325 MG TABLET 2 tablets by ORAL/FEEDING TUB* PRAVASTATIN 40 MG TABLET Take 1 tablet by mouth daily * METOPROLOL TARTRATE 25 MG TAB* Take 2 tablets by mouth twice* SENNOSIDES 8.6 MG-DOCUSATE SO* Take 1 tablet by mouth twice * Patient taking differently: Take 1 tablet by mouth once d* FUROSEMIDE 20 MG TABLET Take 1 tablet by mouth twice * THERAPEUTIC MULTIVITAMIN TABL* Take 1 tablet by mouth daily * ASPIRIN 81 MG CHEWABLE TABLET Take 1 tablet by mouth once d* POTASSIUM CHLORIDE ER 10 MEQ * Take 1-6 tablets by mouth onc* Patient taking differently: Take 10 mEq by mouth three ti* PANTOPRAZOLE 20 MG TABLET,DEL* Take 1 tablet by mouth DAILY * X AMIODARONE 200 MG TABLET Take 400mg three times daily * X WARFARIN 5 MG TABLET Take 1 tablet by mouth once d* ADVAIR DISKUS 250 MCG-50 MCG/* USE 1 INHALATION INSTRUCTE* ALBUTEROL SULFATE HFA 90 MCG/* Inhale 2 Puffs as instructed * Problem List As Of Date 06/02/2018 Noted Resolved 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 Scrotal swelling [N50.89] INVALID FOR* Diverticulosis [K57.90] INVALID FOR* Priority: C Elevated blood pressure reading without diagnos*INVALID FOR* Ex-smoker [Z87.891] INVALID FOR* Priority: C More... Well adult exam [Z00.00] INVALID FOR* Priority: D More... Need for lipid screening [Z13.220] INVALID FOR* More... Severe aortic stenosis [I35.0] INVALID FOR* Priority: A More... Moderate persistent asthma without complication*INVALID FOR* Priority: B More... Eczema [L30.9] INVALID FOR* Priority: D More... More... 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 Discharge planning issues [Z02.9] INVALID FOR* Priority: M More... Preop testing [Z01.818] INVALID FOR*05/26/2018 More... Coronary artery disease involving [place]*INVALID FOR* Priority: A More... Postprocedural hypotension [I95.81] INVALID FOR*05/24/2018 Priority: C More... Acute on chronic systolic heart failure (HCC) [*INVALID FOR* Priority: C More... Post-operative pain [G89.18] INVALID FOR* Priority: D More... Stress hyperglycemia [R73.9] INVALID FOR*05/24/2018 Priority: E More... Acute blood loss anemia [D62] INVALID FOR*05/25/2018 Priority: H More... Ileus (HCC) [K56.7] INVALID FOR* Priority: C More... 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 Paroxysmal atrial fibrillation (HCC) [I48.0] INVALID FOR* Priority: C More... Atelectasis [J98.11] INVALID FOR* Priority: B More... Hypervolemia [E87.70] INVALID FOR* Priority: F More... Transition of care performed with sharing of cl*INVALID FOR* Priority: A More... Anticoagulation management encounter [Z51.81, Z*INVALID FOR* More... Encounter Status:Closed by CLAUDIA BREWER on 06/02/18 YOUSIF Observed: 06/02/2018 Status: COMPLETED Source: [place] 12:[address] [facility] REPOSITORY Patient Outreach (RAMSEYPHARMSVC) MACIEJ CROWDER ([id number]) 1940 M Date Time Provider Department 06/02/18 DIONNE VILLEGAS PHARMD During your visit today, we recorded the following information about you: Dionne Villegas PharmD 06/05/2018 2:49 PM Signed TRANSITION CARE MANAGEMENT (TCM) PHARMACY CONTACT Provider Action/FYI: Dr. Valdes -- ? Pt discharged on 05/30 on Lasix 20mg BID, and Potassium 10 mEq 1-6 tabs daily. reports she has been giving Laisx as directed, and Potassium 10 mEq 1 tab TID. Noted last dose of Potassium given during admission was 20 mEq on 05/26. Pt has a TCM visit scheduled with you tomorrow (06/04) please consider checking potassium levels and adjusting Potassium dose if appropriate. Thank you. Results for MACIEJ CROWDER ( ) as of 06/03/2018 09:25 Ref. Range 05/28/2018 05:53 05/29/2018 04:58 05/30/2018 05:13 Potassium Latest Ref Range: 3.7 - 5.1 mmol/L 4.8 4.2 4.1 Initial contact with patient post discharge, spoke to patient and spouse, Ángel,. Patient identified by name and . Summary: -Pt discharged from [facility] on 05/30/18. -Follow up appointment on 06/04/18 with PCP. -Medication review done Yes. -Admitted for Severe coronary artery disease, severe calcific aortic ?stenosis. Patient was contacted by telephone, identified for pharmacist care from discharge call list, and gave consent to manage medications related to transitional care management pursuant to the consult agreement with the [facility]. Patient Concerns: Briefly spoke with patient who requested to have meds reviewed with his , Ángel. Ángel reports no questions or concerns regarding medications. Notes that she spoke to Dr. Lyles's office yesterday (06/02) regarding INR/Warfarin management, and that she provided the [facility] lab with Dr. Lyles's fax number for INR results, but notes she has not heard back regarding results. Advised that if she does not hear back this morning, to call Dr. Lyles's office this afternoon prior to pt's next scheduled dose of Warfarin at 5pm. History of Present Illness: The following content has been copied and pasted from patient's discharge summary. Reason for Hospitalization: This is a 78-year-old gentleman with a long history of ?coronary disease and severe aortic stenosis. Operations during Hospitalization: Median sternotomy, open heart, aortic valve replacement with 25 ?CE valve. ?Coronary artery bypass x3 with ROSA to LAD, reverse vein graft to obtuse ?marginal circumflex and PDA of the right coronary artery. ? Hospital Course: How was the Reason for Hospitalization Addressed: Yes - s/p CABG - s/p AV replacement ? What were the Active Issues: - CAD s/p CABG - Aortic stenosis s/p AV replacement - Post operative atrial fibrillation ? Surgical Pathology/Microbiology: FINAL DIAGNOSIS Aortic valve, excision - Severe calcification and severe fibrosis (gross diagnosis only). ? ? Hospital Course Complicated by: Post operative Atrial Fibrillation/Atrial Flutter, resolved Post operative Ileus, resolved ? Extended Hospital Stay Due to: No ? Specific Medication Changes: Start anticoagulation therapy with coumadin ? Pain: Adequate management. ? Surgical Incisions/Wounds: Wash the incision sites daily with regular soap (not perfumed soap or shower gels) and water. Keep the area clean and dry when you are not showering. Do not use creams, lotions or ointment on the incision sites. Do not soak in a tub, pool or hot tub until your incisions are completely healed. ? Patient Condition at Discharge: Improved Disposition: Home/Self Care PAST MEDICAL HISTORY Diagnosis Date - Aortic stenosis, moderate 08/09/2015 10/19/2014 echocardiogram. - Diverticulitis - Diverticulosis 09/18/2013 - Inguinal hernia without mention of obstruction or gangrene, unilateral or unspecified, (not specified as recurrent) - Moderate persistent asthma without complication 08/09/2015 09/29/14 Spirometry: GIA62-30, 1.45 L/s, 65% pred. +41% post BD 08/09/15 Gabe: 109 (normal < 25). - Multiple fractures of ribs of both sides 2012 Work accident - Other specified type of hydrocele - Pneumothorax 2012 Work accident Social History Substance Use Topics - Smoking status: Former Smoker Types: Cigars - Smokeless tobacco: Never Used Comment: Occasionally smoked cigars - Alcohol use No Immunization History Administered Date(s) Administered Pneumococcal-13 Vac Conjugate 09/22/2014 Pneumovax 02/09/2008 11/16/2016 Last 3 Encounter BP Readings: Date: BP: 05/20/2018 147/70 05/05/2018 129/61 04/15/2018 131/74 eGFR-All Other Races (.) Date Value 05/30/2018 >60 eGFR- (no units) Date Value 05/30/2018 >60 Estimated Creatinine Clearance: 57.1 mL/min (based on SCr of 0.96 mg/dL). ALLERGIES Allergen Reactions - Lipitor [Atorvastat* Other: See Comments Chills and leg pain. [facility] [address] [place] [id number] [place] [address] - [phone] [place] [id number] e- [facility] [place] [address] [address] [facility] - [phone] [id number] [address] [facility] [id number] e- [facility] [place] [phone] [facility] - [phone] [address] [facility] [address] Medication Reconciliation: Legend: Stopped, New, Changed, Added to list Medication List Medication Directions Comments Action/Plan acetaminophen (TYLENOL) 325 mg tablet 2 tablets by ORAL/FEEDING TUBE route every 6 hours as needed. E-rx to [facility] Taking as prescribed without any issues ADVAIR DISKUS 250-50 mcg/dose dsdv USE 1 INHALATION INSTRUCTED TWICE A DAY RINSE AND GARGLE MOUTH WITH WATER AFTER EACH USE Taking as prescribed without any issues albuterol HFA (PROAIR HFA) 90 mcg/actuation inhaler Inhale 2 Puffs as instructed every 6 hours as needed. Taking as prescribed without any issues amiodarone (PACERONE) 200 mg tablet Take 400mg three times daily for 1 day, then 400mg twice daily for 5 days, then 400mg daily for 5 days, and then 200mg daily for 21 days E-rx to [facility] Taking as prescribed without any issues. reports clear understanding of SIG, confirms currently giving 400mg (2 tabs) BID aspirin 81 mg chewable tablet Take 1 tablet by mouth once daily. E-rx to [facility] Changed to chewable Taking as prescribed without any issues Discontinued: 05/30/2018 12:52 PM Discontinued: 05/30/2018 12:52 PM confirms pt no longer taking furosemide (LASIX) 20 mg tablet Take 1 tablet by mouth twice daily. E-rx to [facility] Taking as prescribed without any issues Discontinued: 05/30/2018 12:52 PM confirms pt no longer taking metoprolol tartrate, short acting, (LOPRESSOR) 25 mg tablet Take 2 tablets by mouth twice daily. E-rx to [facility] Dose increase and formulation change from XL Taking as prescribed without any issues Discontinued: 05/30/2018 12:52 PM confirms pt no longer taking pantoprazole DR (PROTONIX) 20 mg tablet Take 1 tablet by mouth DAILY (6 AM). E-rx to [facility] Taking as prescribed without any issues potassium chloride ER (K-DUR, KLOR-CON) 10 mEq tablet Take 1-6 tablets by mouth once daily. E-rx to [facility] Last given 05/26 20 mEq reports giving 1 tab (10 mEq) TID, notes she was unsure how to give based on AVS/SIG. Ref. Range 05/29/2018 04:58 05/30/2018 05:13 Potassium Latest Ref Range: 3.7 - 5.1 mmol/L 4.2 4.1 Updated SIG, routing to PCP to review dosing and consider repeat labs at tomorrow (06/04) Discontinued: 05/30/2018 12:52 PM pravastatin (PRAVACHOL) 40 mg tablet Take 1 tablet by mouth daily at bedtime. E-rx to [facility] Dose increase Taking as prescribed without any issues senna-docusate (SENNA-S) 8.6-50 mg per tablet Take 1 tablet by mouth twice daily. E-rx to [facility] reports giving 1 tab QD, reports daily dosing working well to control constipation Updated SIG therapeutic multivitamin (THERA VITAMIN) tablet Take 1 tablet by mouth daily with breakfast. E-rx to [facility] Taking as prescribed without any issues Discontinued: 05/30/2018 12:52 PM Last ordered 11/22/17 warfarin (COUMADIN) 5 mg tablet Take 1 tablet by mouth once daily. E-rx to [facility] INR due 06/02, per AVS being managed by outside Cardio (Dr. Lyles) confirms pt taking 1 tab (5mg) QD at 5pm, reports they had labs done at [facility] yesterday and provide lab with fax # so labs could be sent to Dr. Lyles. reports she spoke with Dr. Lyles's office yesterday prior to lab draw, but has not heard back regarding results. agrees to contact Dr. Lyles's office for results/updated dosing this afternoon (06/03) if she does not hear from them this AM. Per 05/30 Card Progress Note: Dr. Lyles (artificial insemination technician) will manage coumadin. Provide script for 1st lab draw and have results faxed to [phone] Dr. Lyles's office. The lab is in the same building as his office Assessment: ? Source of medication information: Medication list ? Were adherence barriers identified? No ? Every medication has an indication: Yes ? Medical problems with no assigned therapy: No Additional follow up: ? confirms 06/04 PCP visit. Interventions Made: Patient education, Medication counseling, Labs ordered and Medication reconciliation completed Time spent on patient: 60-75 minutes Dionne Villegas, Lencho June 02, 2018 7:52 AM Allergies As of Date: 06/02/2018 Noted Allergy Reaction LIPITOR (ATORVASTATIN CALCIUM) 11/22/2017 14 - Other: See Comments Comments: Chills and leg pain. Date Reviewed: 05/30/2018 Reviewed by: Rosi DawsonRn) CHERI Slaughter - Fully Assessed Reason for Visit: Transition Of Care [4074] Cmt: Pharmacy - Hospital discharge 05/30/18 Prescriptions as of 06/02/2018 Sig: ACETAMINOPHEN 325 MG TABLET 2 tablets by ORAL/FEEDING TUB* THERAPEUTIC MULTIVITAMIN TABL* Take 1 tablet by mouth daily * ASPIRIN 81 MG CHEWABLE TABLET Take 1 tablet by mouth once d* X AMIODARONE 200 MG TABLET Take 400mg three times daily * X WARFARIN 5 MG TABLET Take 1 tablet by mouth once d* X PRAVASTATIN 40 MG TABLET Take 1 tablet by mouth daily * X METOPROLOL TARTRATE 25 MG TAB* Take 2 tablets by mouth twice* X SENNOSIDES 8.6 MG-DOCUSATE SO* Take 1 tablet by mouth twice * Patient taking differently: Take 1 tablet by mouth once d* X FUROSEMIDE 20 MG TABLET Take 1 tablet by mouth twice * X POTASSIUM CHLORIDE ER 10 MEQ * Take 1-6 tablets by mouth onc* Patient taking differently: Take 10 mEq by mouth three ti* X PANTOPRAZOLE 20 MG TABLET,DEL* Take 1 tablet by mouth DAILY * ADVAIR DISKUS 250 MCG-50 MCG/* USE 1 INHALATION INSTRUCTE* ALBUTEROL SULFATE HFA 90 MCG/* Inhale 2 Puffs as instructed * Problem List As Of Date 06/02/2018 Noted Resolved 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 Scrotal swelling [N50.89] INVALID FOR* Diverticulosis [K57.90] INVALID FOR* Priority: C Elevated blood pressure reading without diagnos*INVALID FOR* Ex-smoker [Z87.891] INVALID FOR* Priority: C More... Well adult exam [Z00.00] INVALID FOR* Priority: D More... Need for lipid screening [Z13.220] INVALID FOR* More... Severe aortic stenosis [I35.0] INVALID FOR* Priority: A More... Moderate persistent asthma without complication*INVALID FOR* Priority: B More... Eczema [L30.9] INVALID FOR* Priority: D More... More... 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 Discharge planning issues [Z02.9] INVALID FOR* Priority: M More... Preop testing [Z01.818] INVALID FOR*05/26/2018 More... Coronary artery disease involving [place]*INVALID FOR* Priority: A More... Postprocedural hypotension [I95.81] INVALID FOR*05/24/2018 Priority: C More... Acute on chronic systolic heart failure (HCC) [*INVALID FOR* Priority: C More... Post-operative pain [G89.18] INVALID FOR* Priority: D More... Stress hyperglycemia [R73.9] INVALID FOR*05/24/2018 Priority: E More... Acute blood loss anemia [D62] INVALID FOR*05/25/2018 Priority: H More... Ileus (HCC) [K56.7] INVALID FOR* Priority: C More... 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 Paroxysmal atrial fibrillation (HCC) [I48.0] INVALID FOR* Priority: C More... Atelectasis [J98.11] INVALID FOR* Priority: B More... Hypervolemia [E87.70] INVALID FOR* Priority: F More... Transition of care performed with sharing of cl*INVALID FOR* Priority: A More... Anticoagulation management encounter [Z51.81, Z*INVALID FOR* More... Encounter Status:Closed by NELLY (PHARMACIST)DIONNE on 06/05/18 CNDS Observed: 05/30/2018 Status: COMPLETED Source: [place] 1:[address] [facility] REPOSITORY [facility] ID: [id number] Author: Rosales Urbina Service: Cardiac Surgery Author Type: Physician Type: Discharge Summaries Filed: 06/01/2018 5:15 PM Note Text: Department of Cardiothoracic Surgery Discharge Summary PATIENT NAME: Maciej Crowder ADMISSION DATE: 05/22/2018 DISCHARGE DATE: 05/30/2018 Attending Physician/Surgeon: No att. providers found Primary Service: Hvi Cts Team C Code Status: Not on file [facility] Primary Digital Production Artist: Alex Blood MD [facility] Cardiothoracic Surgery Hospitalist. David Hahn MD PhD Admission Diagnosis: Severe coronary artery disease, severe calcific aortic stenosis. Discharge Diagnosis: Severe coronary artery disease, severe calcific aortic stenosis. Reason for Hospitalization: This is a 78-year-old gentleman with a long history of coronary disease and severe aortic stenosis. Operations during Hospitalization: Median sternotomy, open heart, aortic valve replacement with 25 CE valve. Coronary artery bypass x3 with ROSA to LAD, reverse vein graft to obtuse marginal circumflex and PDA of the right coronary artery. Hospital Course: How was the Reason for Hospitalization Addressed: Yes - s/p CABG - s/p AV replacement What were the Active Issues: - CAD s/p CABG - Aortic stenosis s/p AV replacement - Post operative atrial fibrillation Surgical Pathology/Microbiology: FINAL DIAGNOSIS Aortic valve, excision - Severe calcification and severe fibrosis (gross diagnosis only). ? Hospital Course Complicated by: Post operative Atrial Fibrillation/Atrial Flutter, resolved Post operative Ileus, resolved Extended Hospital Stay Due to: No Specific Medication Changes: Start anticoagulation therapy with coumadin Pain: Adequate management. Surgical Incisions/Wounds: Wash the incision sites daily with regular soap (not perfumed soap or shower gels) and water. Keep the area clean and dry when you are not showering. Do not use creams, lotions or ointment on the incision sites. Do not soak in a tub, pool or hot tub until your incisions are completely healed. Patient Condition at Discharge: Improved Disposition: Home/Self Care Problem List: Patient Active Hospital Problem List: Transition of care performed with sharing of clinical summary (05/26/2018) Severe aortic stenosis (08/09/2015) Coronary artery disease involving [place] coronary artery (05/22/2018) Moderate persistent asthma without complication (08/09/2015) Atelectasis (05/25/2018) Acute on chronic systolic heart failure (HCC) (05/22/2018) Ileus (HCC) (05/24/2018) Tachy-huang syndrome (HCC) (05/24/2018) Paroxysmal atrial fibrillation (HCC) (05/25/2018) Post-operative pain (05/22/2018) Hypervolemia (05/25/2018) Discharge planning issues (05/20/2018) Anticoagulation management encounter (05/29/2018) Consults: Cardiology Procedures Performed and Major Radiology: No Information Provided to the Patient: Patient given copy of After Visit Summary which included activity instructions, diet instructions, wound care instructions, medication instructions and follow up appointment ALLERGIES Allergen Reactions - Lipitor [Atorvastat* Other: See Comments Chills and leg pain. Discharge Medications: Discharge Medication List as of 05/30/2018 1:38 PM START taking these medications acetaminophen (TYLENOL) 325 mg tablet 2 tablets by ORAL/FEEDING TUBE route every 6 hours as needed. Normal, Disp-100 tablet, R-0 amiodarone (PACERONE) 200 mg tablet Take 400mg three times daily for 1 day, then 400mg twice daily for 5 days, then 400mg daily for 5 days, and then 200mg daily for 21 days Normal, Disp-57 tablet, R-0, Long-term warfarin (COUMADIN) 5 mg tablet Take 1 tablet by mouth once daily. Normal, Disp-15 tablet, R-0, Long-term metoprolol tartrate, short acting, (LOPRESSOR) 25 mg tablet Take 2 tablets by mouth twice daily. Normal, Disp-120 tablet, R-0, Long-term senna-docusate (SENNA-S) 8.6-50 mg per tablet Take 1 tablet by mouth twice daily. Normal, Disp-60 tablet, R-0 furosemide (LASIX) 20 mg tablet Take 1 tablet by mouth twice daily. Normal, Disp-28 tablet, R-0, Long-term therapeutic multivitamin (THERA VITAMIN) tablet Take 1 tablet by mouth daily with breakfast. OTC, Long-term aspirin 81 mg chewable tablet Take 1 tablet by mouth once daily. Normal, Disp-30 tablet, R-0, Long-term potassium chloride ER (K-DUR, KLOR-CON) 10 mEq tablet Take 1-6 tablets by mouth once daily. Normal, Disp-14 tablet, R-[address] (PROTONIX) 20 mg tablet Take 1 tablet by mouth DAILY (6 AM). Normal, Disp-30 tablet, R-0, Long-term CONTINUE these medications which have CHANGED pravastatin (PRAVACHOL) 40 mg tablet Take 1 tablet by mouth daily at bedtime. Normal, Disp-30 tablet, R-0, Long-term CONTINUE these medications which have NOT CHANGED ADVAIR DISKUS 250-50 mcg/dose dsdv USE 1 INHALATION INSTRUCTED TWICE A DAY RINSE AND GARGLE MOUTH WITH WATER AFTER EACH USE Normal, Disp-3 Inhaler, R-3, Long-term albuterol HFA (PROAIR HFA) 90 mcg/actuation inhaler Inhale 2 Puffs as instructed every 6 hours as needed. Normal, Disp-1 Inhaler, R-11 STOP taking these medications mupirocin (BACTROBAN) 2 % ointment Comments: Reason for Stopping: diltiazem CD (CARDIZEM CD) 180 mg 24 hr capsule Comments: Reason for Stopping: triamcinolone acetonide (KENALOG) 0.1 % ointment Comments: Reason for Stopping: aspirin, enteric coated (ADULT LOW DOSE ASPIRIN) 81 mg EC tablet Comments: Reason for Stopping: metoprolol succinate ER (TOPROL XL) 25 mg 24 hr tablet Comments: Reason for Stopping: Transitions of Care Critical Issues: Outpatient Management: * Are there important medication changes and/or outstanding issues that need to be addressed: Start anticoagulation therapy with coumadin * What is the plan for follow up: - Follow up with PCP in 1 week and artificial insemination technician in 4 weeks. - Mr. Crowder was offered an appointment to return to [facility] Outpatient department for a post operative visit with the Nurse Practitioner and follow up with artificial insemination technician. He declined and prefers to follow up with PCP and local artificial insemination technician Future Appointments: Please follow-up as recommended by your provider. Highest Readmission Risk Score: 28 The 30 day readmissions risk score is derived from an internally validated risk model which evaluates patient level characteristics, utilization history, medication orders and lab results up until the day of discharge. Patients with a score of 40 or above are considered highest risk for readmission. Specific patient level drivers will be listed at the bottom of the summary. This patient?s risk for 30-day readmission is determined using the following contributing drivers Pt variables contributing to increased readmission risk: 25 Most Recent BUN Result 23 Active Medication Orders 8.4 First Resulted Calcium During Admission 1 Insurance - Private Coverage 1 Discharge Disposition - Home 1 History of COPD 1 History of Anemia 1 Active Anticoagulant Electronically SIGNED by Licensed Independent Practitioner: David Hahn MD PhD PT ED Observed: 05/30/2018 Status: COMPLETED Source: [place] 12:19 PM [facility] REPOSITORY O ID: [id number] Author: Lula Dodson (Pharmacist) Service: Pharmacy Author Type: Pharmacist Type: Patient Education Filed: 05/30/2018 12:21 PM Note Text: PHARMACY WARFARIN EDUCATION Patient Name: Maciej Crowder Account #: Data Unavailable Admission Date: 05/22/2018 5:11 AM Date of Contact: May 30, 2018 Time of Contact: 12:19 PM Patient new to warfarin? Yes Outpatient follow-up plan: Follow-up with Physician: name: Dr. Lyles Indication for warfarin: atrial fibrillation Target INR range: 2.0 - 3.0 (Target 2.5) Patient received full warfarin education. Initial patient education included: * Reason for taking warfarin * How warfarin works * What the INR test is, frequency of testing, and the importance of monitoring warfarin with scheduled PT/INR blood draws or finger sticks * Information about plans to monitor warfarin post-discharge was reviewed * When to take warfarin and what to do if a dose is missed * Identifying tablet(s) and to notify the doctor/anticoagulation clinic if there is a change in tablet color, shape, or markings * Drug interactions (Rx, OTC, herbal) and importance of notifying the doctor/anticoagulation clinic with any changes. * Do not take or discontinue any medication or over the counter medication except on the advice of the physician or pharmacist because certain medications can affect the PT/INR. * Potential duration of therapy * Signs/symptoms of bleeding and what to do if they occur because warfarin increases the risk of bleeding * Precautionary measures to decrease trauma/bleeding * Signs/symptoms of thrombosis and what to do if they occur * Need to limit or avoid EtOH consumption * Dietary considerations discussing that a ?consistent amount? of foods with vitamin K rather than avoidances should be advised and to avoid major changes in dietary habits, or notify health professional before changing habits because diet can affect the PT/INR * Carrying identification * Importance of notifying healthcare provider and [facility] when hospitalizations occur and when another healthcare provider has asked them to stop/hold warfarin before any procedure * Importance of notifying all healthcare providers they are taking warfarin * Use of control measures if applicable * The importance of taking warfarin as instructed and the potential ramifications of non- compliance were explained to the patient. The patient was provided ?Understanding the Anticoagulant Medication Warfarin? education booklet which includes the following : compliance Issues, dietary advice, follow-up with physician, follow- up monitoring, potential adverse drug reactions and interactions. READINESS TO LEARN COGNITIVE ABILITY: Alert and oriented MOTIVATION TO LEARN: Interested FAMILY SUPPORT: High - Very involved in pt care INSTRUCTION PROVIDED TO: Patient, Family member and Spouse PATIENT LEARNS BEST BY: Multiple Methods FACTORS AFFECTING LEARNING: None PHYSICAL LIMITATIONS AFFECTING LEARNING: None LEARNING RESPONSE DIAGNOSIS: SEE INDICATION(S) ABOVE PATIENT/FAMILY RESPONSE: Verbalizes understanding of: The signs and symptoms of a worsening condition that warrant a call to the physician. The physical restrictions and recommendations after discharge from the hospital. Accurate knowledge of prescribed medication prior to discharge. The correct action to take if medication dose is missed. The side effects associated with the medication that warrant a call to the physician. Post discharge follow up instruction Diet METHOD OF INSTRUCTION: Individual instruction Written instruction - handouts Verbal instruction SUPPLEMENTAL MATERIAL PROVIDED: Warfarin booklet Understanding your Warfarin Therapy FURTHER RECOMMENDATIONS (if any) NA EVIDENCE OF LEARNING Outcomes met: Indicates understanding of topic Outcomes not met: N/A Outpatient Follow-up: Digital Production Artist, Dr. Rafal DODSON, PHARMACIST PROGRESS Observed: 05/30/2018 Status: COMPLETED Source: [place] 12:[address] [facility] REPOSITORY [facility] ID: [id number] Author: David Perla) MD Jovani Service: Cardiac Surgery Author Type: Physician Type: Progress Notes Filed: 05/30/2018 12:17 PM Note Text: [facility] POSTOP PROGRESS NOTE Day of Surgery:05/22/2018 S/P SURGERY: CABG x3, ROSA-LAD, SVG-OM1, SVG-PDA, AVR # 25 CE; INTERVAL EVENTS / PERTINENT ROS: No acute evetns INR 1.2 this AM Had BM, denies abdominal pain, nausea and vomiting Rhythm: Sinus Intake/Output Summary (Last 24 hours) at 05/30/18 1213 Last data filed at 05/30/18 0329 Gross per 24 hour Intake 720 ml Output 525 ml Net 195 ml EKG: most recent image reviewed TELE: most recent recordings reviewed CXR: most recent image reviewed Echocardiogram: most recent image reviewed PHYSICAL EXAM: BP 143/65 Pulse 76 Temp 36.6 ?C (97.8 ?F) (Oral) Resp 18 Ht 166.4 cm (5' 5.5) Wt 73.5 kg (162 lb 1.6 oz) SpO2 97% BMI 26.56 kg/m? Neuro: AANDO x 3 moves all extremities with no apparent weakness CV: no jugular venous distention Heart Exam: RRR without murmur, gallop, or rubs. No ectopy. Resp: diminished breath sounds Abd: soft, nontender, nondistended; BS normal; no masses or organomegaly noted. Skin: Skin color, texture, turgor normal, no suspicious rashes or lesions Ext: Trace edema Surgical incisions: clean, dry and intact Chest tube: No Pacer wires:No HISTORY, ASSESSMENT AND PLAN: Problem Transition of Care Performed With Sharing of Clinical Summary Indication for Surgery: Severe , CAD Preop LVEF: 45% RVF: Normal Cards: June EKG: NSR Postop LVEF: 50% RVF: Normal Important/Relevant PMH/PSH: mild asthma, diverticulosis. Work accident with rib fractures AND pneumothorax. Family hx of Malignant Hyperthermia. Preoperative Hospital Course: Elective Surgery Airway Difficulty: Grade I - No special instrumentation Pacing Wires: No Cut on 05/30 Chronological List of Surgeries and Major Events (Diagnosis): (Surgeries in bold characters) 05/22/2018: CABG x3, ROSA-LAD, SVG-OM1, SVG-PDA, AVR # 25 CE; OR course with coagulopathy treated with platelets. Postoperative hypotension requiring norepinephrine infusion AND cardiac insufficieny requiring epinephrine. 05/24/2018 - AF with RVR A/P of Major Active Problems (excluding routine care and common problems): Cardiac: Atrial Fibrillation: Currently in SR. Episode of ANGEL with amiodarone infusion. Rate control with BB. GI: Postoperative Ileus: BM x 4 overnight. Continue bowel regimen. Daily KUB. To Do or to Watch: Transferred to [facility] on 05/25/18 AANDPlan: -PAF: In Sinus now, continue BB, PO amio and coumadin. - CAD: CABG x3 ASA/BB/statin - FVO: off lasix, room air, xray small effusions - KUB + ileus improving, tolerating advanced diet, stool for Cdiff negavtive - Disp: from [place], [place]. PT: Home. CM following. DC once rhythm stable. Will follow up with local PCP and artificial insemination technician Discharge Planning: Anticipated Discharge Date: 05/30 Barriers to Discharge: Unknown Care Management Discharge Needs: Coronary Artery Disease Involving [place] Coronary Artery History: [facility] (08/2017) LMT: - The ostial LMT - focal disease. ?Additional Comment: 30-40% ostial stenosis. LAD: - The mid LAD is narrowed 65 % - focal disease. ?Additional Comment: The Mid LAD has a focal 60-70% stenosis and then otherwise mild diffuse disease throughout this tortuous vessel. LCX: - The mid circumflex is narrowed 50 % - focal disease. RAMUS: - The Ramus is Absent. RCA: - The mid RCA is narrowed 100 % - focal disease. ?Additional Comment: The RCA is completely occluded however there are left to right collaterals to an RV marginal that then backfills the rest of the RCA and PDA beyond the stenosis. Assessment: 05/22/2018 - CABG x3, ROSA-LAD, SVG-OM1, SVG-PDA Plan CAD Core Measures: Aspirin: Yes Beta blockers: Yes Statins: Yes Severe Aortic Stenosis History: Severe Assessment: 05/22/2018 - AVR # 25 CE; surgical pathology: Aortic valve, excision - Severe calcification and severe fibrosis Plan: ASA daily Moderate Persistent Asthma Without Complication History: Home medication: Advair, Albuterol Assessment: no wheezing, room air, denies SOB Plan: Continue budesonide and albuterol inhalers Paroxysmal Atrial Fibrillation (Hcc) History: New-onset AF (05/24); holding amiodarone in the setting of junctional bradycardia. Received 660mg 05/24 Assessment: - Converted to afib/flutter RVR, aymptomatic - 05/26 in Afib with RVR - 05/27 back in NSR - Remaining in Sinus with HR 70s to 80s Plan: - Con't amio PO, continue BB and coumadin; - replace electrolytes PRN; - Dr. Lyles (artificial insemination technician) will manage coumadin. Provide script for 1st lab draw and have results faxed to [phone] Dr. Lyles's office. The lab is in the same building as his office Acute On Chronic Systolic Heart Failure (Hcc) History: Preop EF 45%. Outpatient meds Diltiazem and Toprol Assessment: normal function on intra op MARY Plan: Con't BB and lasix Anticoagulation Management Encounter - Post op afib, AC with coumadin - INR goal 2-3, INR 1.2 this AM - Dose coumadin daily per INR DAILY STEP DOWN CHECKLIST FOR CATHETER RELATED INFECTION PREVENTION CVC, PICC, [place] and/or Permacath present? No Does the patient have a urinary catheter beyond POD 2? No VTE Risk Assessment: High risk VTE Mechanical and/or Pharmacologic Prophylaxis: IPC Device and Subcutaneous Heparin Labs and medications reviewed in [facility] SIGNATURE: David Hahn MD PhD PATIENT NAME: Maciej Crowder DATE: May 30, 2018 TIME: 12:13 PM PAGER/CONTACT #: [phone] PROCEDURE Observed: 05/30/2018 Status: COMPLETED Source: [place] 11:[address] [facility] REPOSITORY HNO ID: [id number] Author: David Hahn MD Service: Cardiac Surgery Author Type: Physician Type: Procedures Filed: 05/30/2018 11:25 AM Note Text: Remaining MS Alejandro- < 50 cc serosanguinous drainage out over past 24 hrs. No air leak or SQ emphysema. CXR on waterseal reviewed AND does not demonstrate significant pneumothorax. CT removed - site closed with purse string sutures AND dressed with vasoline gauze. Patient tolerated procedure well. Repeat CXR and review with CTS if needed David Hahn MD PhD May 30, 2018 11:25 AM PROCEDURE Observed: 05/30/2018 Status: COMPLETED Source: [place] 11:[address] [facility] REPOSITORY HNO ID: [id number] Author: David Hahn MD Service: Cardiac Surgery Author Type: Physician Type: Procedures Filed: 05/30/2018 11:25 AM Note Text: Platelet Count 254 05/30/2018 Platelet Count 201 05/29/2018 Platelet Count 213 05/28/2018 Platelet Count 170 05/27/2018 PT INR 1.2 05/30/2018 PT INR 1.1 05/29/2018 PT INR 1.1 05/28/2018 PT INR 1.1 05/27/2018 rhythm normal sinus rhythm 2 atrial wires were discontinued without difficulty CUT 2 ventricular wires were discontinued without difficulty CUT Mr. Maciej Crowder and bedside RN aware of 30 min bedrest restriction David Hahn MD PhD CBC Collected: 05/30/2018 Status: F Source: [place] 5:[address] [facility] REPOSITORY TYPE CODE TESTS RESULT OUT OF REFERENCE UNITS RANGE LAB WBC 3.70-11.00 k/uL WBC 9.23 LAB RBC 4.20-6.00 m/uL Low RBC 3.25 LAB HGB 13.0-17.0 g/dL Low Hemoglobin 10.2 LAB HCT 39.0-51.0 % Low Hematocrit 31.5 LAB MCV 80.0-100.0 fL MCV 96.9 LAB MCH 26.0-34.0 pG MCH 31.4 LAB MCHC 30.5-36.0 g/dL MCHC 32.4 LAB RDWCV 11.5-15.0 % RDW-CV 13.7 LAB PLTCT 150-400 k/uL Platelet Count 254 LAB MPV 9.0-12.7 fL MPV 9.4 LAB ABSNUC <0.01 k/uL Absolute nRBC <0.01 Performed By: #### CBC, PT, CMP, MG1 #### [facility] [employer] [address] [place], [place] [address] PROTIME Collected: 05/30/2018 Status: F Source: [place] 5:13 AM [facility] REPOSITORY TYPE CODE TESTS RESULT OUT OF RANGE REFERENCE UNITS LAB PSEC 9.7-13.0 sec PT Sec 12.8 LAB INR 0.9-1.3 PT INR 1.2 Result Comment: Vitamin K Antagonist (VKA) Therapeutic Range: INR 2 to 3 (Target INR of 2.5) Note: For patients treated with VKA drugs, such as warfarin, the [place] [employer] 2012 Guideline recommends a therapeutic INR range of 2 to 3 (target INR of 2.5). This recommendation includes high-risk patients with antiphospholipid syndrome with previous arterial or venous thromboembolism, current-generation mechanical or bioprosthetic aortic heart valve replacement. Note: Patients with mechanical aortic valve replacement and additional risk factors for thromboembolic events (atrial fibrillation, previous thromboembolism, LV dysfunction, hypercoagulable conditions) or an older generation mechanical AVR (i.e., ball in-Cage) or any mechanical MVR should have a INR therapeutic range of 2.5 to 3.5 (target INR of 3). Suleiman GH, et al. Chest 2012, 141:7S-47S Celina RA, et al. [facility] 2017, 70: 252-289 Performed By: #### CBC, PT, CMP, MG1 #### [facility] [employer] [address] [place], [place] [address] COMP METABOLIC PANEL Collected: 05/30/2018 Status: F Source: [place] 5:13 AM [facility] REPOSIT[facility] TYPE CODE TESTS RESULT OUT OF REFERENCE UNITS RANGE LAB TP 6.3-8.0 g/dL Low Protein, Total 5.9 LAB ALB 3.9-4.9 g/dL Low Albumin 3.0 LAB CA 8.5-10.2 mg/dL Calcium, Total 8.6 LAB TBIL 0.2-1.3 mg/dL Bilirubin, Total 0.5 LAB ALKP 38-113 U/L Alkaline Phosphatase 55 LAB AST 14-40 U/L AST 24 LAB GLU 74-99 mg/dL Glucose 97 Result Comment: The [place] [employer] (ADA) provides guidance for cutoff values for fasting glucose and random glucose. The ADA defines fasting as no caloric intake for at least 8 hours. Fas ting plasma glucose results between 100 to 125 mg/dL indicate increased risk for diabetes (prediabetes). Fasting plasma glucose results greater than or equal to 126 mg/dL meet the criteria for diagnosis of diabetes. In the absence of unequivocal hyperglycemia, results should be confirmed by repeat testing. In a patient with classic symptoms of hyperglycemia or hyperglycemic crisis, random plasma glucose results greater than or equal to 200 mg/dL meet the criteria for diagnosis of diabetes. Reference: Standards of Medical Care in Diabetes 2016, [place] [employer]. Diabetes Care. 2016.39(Suppl 1). LAB BUN 9-24 mg/dL BUN High 25 LAB CRET 0.73-1.22 mg/dL Creatinine 0.96 LAB NA 136-144 mmol/L Sodium 137 LAB K 3.7-5.1 mmol/L Potassium 4.1 LAB CL 97-105 mmol/L Chloride 102 LAB CO2 22-30 mmol/L Low CO2 21 LAB AGAP 9-18 mmol/L Anion Gap 14 LAB ALT 10-54 U/L ALT 36 LAB GFRAA eGFR- Amer. >60 LAB GFRNAA . eGFR-All Other Races >60 Result Comment: eGFR (Estimated GFR) Units of measure: mL/min/1.73 meters squared eGFR is derived from the reexpressed MDRD Study equation using the following parameters: serum creatinine, age, gender and race. The creatinine assay has been calibrated to be traceable to IDMS. An eGFR <60 mL/min/1.73m2 for >3 months is consistent with chronic kidney disease. Refer to KDOQI guidelines for clinical interpretation. In patients with unstable renal function, e.g. those with acute kidney injury, the eGFR may not accurately reflect actual GFR. Performed By: #### CBC, PT, CMP, MG1 #### [facility] [employer] [address] [place], [place] [address] MAGNESIUM Collected: 05/30/2018 Status: F Source: [place] 5:[address] [facility] REPOSITORY TYPE CODE TESTS RESULT OUT OF REFERENCE UNITS RANGE LAB MG 1.7-2.3 mg/dL Magnesium 2.1 Performed By: #### CBC, PT, CMP, MG1 #### [facility] [employer] [address] [place], [place] [address] PROGRESS Observed: 05/29/2018 Status: COMPLETED Source: [place] 2:[address] [facility] REPOSITORY HNO ID: [id number] Author: David Perla) MD Jovani Service: Cardiac Surgery Author Type: Physician Type: Progress Notes Filed: 05/29/2018 2:40 PM Note Text: [facility] C[facility] POSTOP PROGRESS NOTE Day of Surgery:05/22/2018 S/P SURGERY: CABG x3, ROSA-LAD, SVG-OM1, SVG-PDA, AVR # 25 CE; INTERVAL EVENTS / PERTINENT ROS: No acute events, remaining in sinus Pain controlled, ambulation Had BM, denies abdominal pain, nausea and vomiting INR 1.1 this AM Rhythm: Sinus Intake/Output Summary (Last 24 hours) at 05/29/18 1437 Last data filed at 05/29/18 1300 Gross per 24 hour Intake 1310 ml Output 35 ml Net 1275 ml EKG: most recent image reviewed TELE: most recent recordings reviewed CXR: most recent image reviewed Echocardiogram: most recent image reviewed PHYSICAL EXAM: BP 125/58 Pulse 83 Temp 36.4 ?C (97.6 ?F) (Oral) Resp 20 Ht 166.4 cm (5' 5.5) Wt 72.9 kg (160 lb 12.8 oz) SpO2 97% BMI 26.35 kg/m? Neuro: AANDO x 3 moves all extremities with no apparent weakness CV: no jugular venous distention Heart Exam: RRR without murmur, gallop, or rubs. No ectopy. Resp: diminished breath sounds Abd: soft, nontender, nondistended; BS normal; no masses or organomegaly noted. Skin: Skin color, texture, turgor normal, no suspicious rashes or lesions Ext: Trace edema Surgical incisions: clean, dry and intact Chest tube: Yes:MS García Pacer wires: Yes, grounded HISTORY, ASSESSMENT AND PLAN: Problem Transition of Care Performed With Sharing of Clinical Summary Indication for Surgery: Severe , CAD Preop LVEF: 45% RVF: Normal Cards: June EKG: NSR Postop LVEF: 50% RVF: Normal Important/Relevant PMH/PSH: mild asthma, diverticulosis. Work accident with rib fractures AND pneumothorax. Family hx of Malignant Hyperthermia. Preoperative Hospital Course: Elective Surgery Airway Difficulty: Grade I - No special instrumentation Pacing Wires: Yes: Atrial and Ventricular: When discontinuing pacing wires: Cut A/Pull V pacing wires Chronological List of Surgeries and Major Events (Diagnosis): (Surgeries in bold characters) 05/22/2018: CABG x3, ROSA-LAD, SVG-OM1, SVG-PDA, AVR # 25 CE; OR course with coagulopathy treated with platelets. Postoperative hypotension requiring norepinephrine infusion AND cardiac insufficieny requiring epinephrine. 05/24/2018 - AF with RVR A/P of Major Active Problems (excluding routine care and common problems): Cardiac: Atrial Fibrillation: Currently in SR. Episode of ANGEL with amiodarone infusion. Rate control with BB. GI: Postoperative Ileus: BM x 4 overnight. Continue bowel regimen. Daily KUB. To Do or to Watch: Transferred to [facility] on 05/25/18 AANDPlan: 05/28/18 -PAF: continue BB and coumadin. Start amio as discussed with Dr. Foster. Leave back up pacer. 250cc NS bolus given today - CAD: CABG x3 ASA/BB/statin -FVO: off lasix, room air, xray small effusions -KUB + ileus improving, tolerating advanced diet, stool for Cdiff negavtive -Disp: from [place], [place]. PT: Home. CM following. DC once rhythm stable. Will follow up with local PCP and artificial insemination technician Discharge Planning: Anticipated Discharge Date: 05/31 Barriers to Discharge: Unknown Care Management Discharge Needs: Coronary Artery Disease Involving [place] Coronary Artery History: [facility] (08/2017) LMT: - The ostial LMT - focal disease. ?Additional Comment: 30-40% ostial stenosis. LAD: - The mid LAD is narrowed 65 % - focal disease. ?Additional Comment: The Mid LAD has a focal 60-70% stenosis and then otherwise mild diffuse disease throughout this tortuous vessel. LCX: - The mid circumflex is narrowed 50 % - focal disease. RAMUS: - The Ramus is Absent. RCA: - The mid RCA is narrowed 100 % - focal disease. ?Additional Comment: The RCA is completely occluded however there are left to right collaterals to an RV marginal that then backfills the rest of the RCA and PDA beyond the stenosis. Assessment: 05/22/2018 - CABG x3, ROSA-LAD, SVG-OM1, SVG-PDA Plan CAD Core Measures: Aspirin: Yes Beta blockers: Yes Statins: Yes Severe Aortic Stenosis History: Severe Assessment: 05/22/2018 - AVR # 25 CE; surgical pathology: Aortic valve, excision - Severe calcification and severe fibrosis Plan: ASA QD Atelectasis History: postoperative atelectasis Assessment: On RA, diminished breath sounds to bases, bibasilar on xray Plan: OOB/ambulate, PEP Moderate Persistent Asthma Without Complication History: Home medication: Advair, Albuterol Assessment: no wheezing, room air, denies SOB Plan: Continue budesonide and albuterol inhalers Paroxysmal Atrial Fibrillation (Hcc) History: New-onset AF (05/24); holding amiodarone in the setting of junctional bradycardia. Received 660mg 05/24 Assessment: - converted to afib/flutter RVR, aymptomatic - 05/26 in Afib with RVR - 05/27 back in NSR - Remaining in Sinus with HR 70s to 80s Plan: - Con't amio PO, continue BB and coumadin; - replace electrolytes PRN; - Dr. Lyles (artificial insemination technician) will manage coumadin. Provide script for 1st lab draw and have results faxed to [phone] Dr. Lyles's office. The lab is in the same building as his office Ileus (Hcc) History: CVICU: Abdominal distention without pain; KUB with ileus. BM x 4 overnight. Assessment: recent KUB improved ileus, still having diarrhea but not as frequent, + bowel sounds, denies abdominal pain, abdomen round and soft, tolerating diet Plan: Continue bowel regimen and advance diet, stool for C diff negative Acute On Chronic Systolic Heart Failure (Hcc) History: Preop EF 45%. Outpatient meds Diltiazem and Toprol Assessment: normal function on intra op MARY Plan: on BB, restart PO low dose of lasix Post-Operative Pain History: post op OHS Assessment: Controlled Plan: continue with Tylenol AND Lidoderm patches DAILY STEP DOWN CHECKLIST FOR CATHETER RELATED INFECTION PREVENTION CVC, PICC, [place] and/or Permacath present? No Does the patient have a urinary catheter beyond POD 2? No VTE Risk Assessment: High risk VTE Mechanical and/or Pharmacologic Prophylaxis: IPC Device and Subcutaneous Heparin Labs and medications reviewed in [facility] SIGNATURE: David Hahn MD PhD PATIENT NAME: Maciej Crowder DATE: May 29, 2018 TIME: 2:37 PM PAGER/CONTACT #: [phone] CASE MANAGEM Observed: 05/29/2018 Status: COMPLETED Source: [place] 10:[address] [facility] REPOSITORY HNO ID: [id number] Author: Maria L (Rn) CHERI Romero Service: Care Management Author Type: Registered Nurse Type: Care Mgt Progress Note Filed: 05/29/2018 10:57 AM Note Text: CARE MANAGEMENT PROGRESS NOTE SERVICE DATE: 05/29/2018 SERVICE TIME: 10:55 AM LOS: 7 days Needs Prior to Discharge: To Be Determined Patient remains on RA. Ambulating with staff. Cardiology following for AF. Continuing to anticipate no skilled needs and discharge when medically cleared. Family reportedly available to assist as needed. SIGNATURE: Maria L Romero RN PATIENT NAME: Maciej Crowder DATE: May 29, 2018 TIME: 10:55 AM PAGER/CONTACT #: [phone] WEEKEND CM PAGER: [phone] PROTIME Collected: 05/29/2018 Status: F Source: [place] 4:[address] [facility] REPOSITORY TYPE CODE TESTS RESULT OUT OF RANGE REFERENCE UNITS LAB PSEC 9.7-13.0 sec PT Sec 11.9 LAB INR 0.9-1.3 PT INR 1.1 Result Comment: Vitamin K Antagonist (VKA) Therapeutic Range: INR 2 to 3 (Target INR of 2.5) Note: For patients treated with VKA drugs, such as warfarin, the [place] [employer] 2012 Guideline recommends a therapeutic INR range of 2 to 3 (target INR of 2.5). This recommendation includes high-risk patients with antiphospholipid syndrome with previous arterial or venous thromboembolism, current-generation mechanical or bioprosthetic aortic heart valve replacement. Note: Patients with mechanical aortic valve replacement and additional risk factors for thromboembolic events (atrial fibrillation, previous thromboembolism, LV dysfunction, hypercoagulable conditions) or an older generation mechanical AVR (i.e., ball in-Cage) or any mechanical MVR should have a INR therapeutic range of 2.5 to 3.5 (target INR of 3). Suleiman GH, et al. Chest 2012, 141:7S-47S Celina RA, et al. [facility] 2017, 70: 252-289 Performed By: #### PT, CBC, CMP, MG1 #### [facility] [address] [place], [place] [address] CBC Collected: 05/29/2018 Status: F Source: [place] 4:[address] [facility] REPOSITORY TYPE CODE TESTS RESULT OUT OF REFERENCE UNITS RANGE LAB WBC 3.70-11.00 k/uL WBC 8.82 LAB RBC 4.20-6.00 m/uL Low RBC 3.31 LAB HGB 13.0-17.0 g/dL Low Hemoglobin 10.3 LAB HCT 39.0-51.0 % Low Hematocrit 31.4 LAB MCV 80.0-100.0 fL MCV 94.9 LAB MCH 26.0-34.0 pG MCH 31.1 LAB MCHC 30.5-36.0 g/dL MCHC 32.8 LAB RDWCV 11.5-15.0 % RDW-CV 13.7 LAB PLTCT 150-400 k/uL Platelet Count 201 LAB MPV 9.0-12.7 fL MPV 9.6 LAB ABSNUC <0.01 k/uL Absolute nRBC <0.01 Performed By: #### PT, CBC, CMP, MG1 #### [facility] [address] [place], [place] [address] COMP METABOLIC PANEL Collected: 05/29/2018 Status: F Source: [place] 4:58 AM [facility] REPOSITORY TYPE CODE TESTS RESULT OUT OF REFERENCE UNITS RANGE LAB TP 6.3-8.0 g/dL Low Protein, Total 6.0 LAB ALB 3.9-4.9 g/dL Low Albumin 2.9 LAB CA 8.5-10.2 mg/dL Calcium, Total 8.6 LAB TBIL 0.2-1.3 mg/dL Bilirubin, Total 0.5 LAB ALKP 38-113 U/L Alkaline Phosphatase 54 LAB AST 14-40 U/L AST 24 LAB GLU 74-99 mg/dL Glucose 93 Result Comment: The [place] [employer] (ADA) provides guidance for cutoff values for fasting glucose and random glucose. The ADA defines fasting as no caloric intake for at least 8 hours. Fas ting plasma glucose results between 100 to 125 mg/dL indicate increased risk for diabetes (prediabetes). Fasting plasma glucose results greater than or equal to 126 mg/dL meet the criteria for diagnosis of diabetes. In the absence of unequivocal hyperglycemia, results should be confirmed by repeat testing. In a patient with classic symptoms of hyperglycemia or hyperglycemic crisis, random plasma glucose results greater than or equal to 200 mg/dL meet the criteria for diagnosis of diabetes. Reference: Standards of Medical Care in Diabetes 2016, [place] [employer]. Diabetes Care. 2016.39(Suppl 1). LAB BUN 9-24 mg/dL BUN High 25 LAB CRET 0.73-1.22 mg/dL Creatinine 0.94 LAB NA 136-144 mmol/L Low Sodium 134 LAB K 3.7-5.1 mmol/L Potassium 4.2 LAB CL 97-105 mmol/L Chloride 100 LAB CO2 22-30 mmol/L Low CO2 21 LAB AGAP 9-18 mmol/L Anion Gap 13 LAB ALT 10-54 U/L ALT 33 LAB GFRAA eGFR- Amer. >60 LAB GFRNAA . eGFR-All Other Races >60 Result Comment: eGFR (Estimated GFR) Units of measure: mL/min/1.73 meters squared eGFR is derived from the reexpressed MDRD Study equation using the following parameters: serum creatinine, age, gender and race. The creatinine assay has been calibrated to be traceable to IDMS. An eGFR <60 mL/min/1.73m2 for >3 months is consistent with chronic kidney disease. Refer to KDOQI guidelines for clinical interpretation. In patients with unstable renal function, e.g. those with acute kidney injury, the eGFR may not accurately reflect actual GFR. Performed By: #### PT, CBC, CMP, MG1 #### [facility] [employer] [address] [place], [place] [address] MAGNESIUM Collected: 05/29/2018 Status: F Source: [place] 4:[address] [facility] REPOSITORY TYPE CODE TESTS RESULT OUT OF REFERENCE UNITS RANGE LAB MG 1.7-2.3 mg/dL Magnesium 2.2 Performed By: #### PT, CBC, CMP, MG1 #### [facility] [employer] [address] [place], [place] [address] XR CHEST 2V FRONTAL/LAT Observed: 05/28/2018 Status: F Source: [place] 12:[address] [facility] REPOSITORY * * *Final Report* * * DATE OF EXAM: May 28 2018 12:09PM JIX [id number] - XR CHEST 2V FRONTAL/LAT / PROCEDURE REASON: Pleural effusion * * * * Physician Interpretation * * * * EXAMINATION: CHEST RADIOGRAPH (2 VIEW FRONTAL and LATERAL) CLINICAL HISTORY: Pleural effusion, Pneumothorax, MQ: XC2_5 Comparison: 2 days prior RESULT: Lines, tubes, and devices: The patient is status post median sternotomy and aortic valve replacement with a bioprosthesis. Mediastinal drain remains in place. Lungs and pleura: There is elevation of the left hemidiaphragm. Small bilateral pleural effusions are noted, right greater than left, with adjacent atelectasis. There is central pulmonary venous congestion without overt edema. No definite pneumothorax is identified. Cardiomediastinal silhouette: Cardiomediastinal silhouette is mildly enlarged. There is tortuosity/ectasia of the descending thoracic aorta. Other: Bones are osteopenic. There are multiple remote bilateral rib fractures. Also noted is a remote fracture of the left clavicle. There are compression deformities of several mid to lower thoracic vertebral bodies. Retained temporary epicardial pacing wires are noted. IMPRESSION: Please see body of report. Laminating Machine Tender: MILLY Transcribe Date/Time: May 28 2018 3:49P Dictated by : YENNY CORONEL MD This examination was interpreted and the report reviewed and electronically signed by: YENNY CORONEL MD on May 28 2018 3:50PM EST [id number] CONSULT Observed: 05/28/2018 Status: COMPLETED Source: [place] 11:03 AM [facility] REPOSITORY HNO ID: [id number] Author: Blanca Foster MD Service: Cardiovascular Medicine Author Type: Physician Type: Consults Filed: 05/28/2018 11:09 AM Note Text: [facility] CARDIOVASCULAR MEDICINE CONSULT NOTE (Template ID [id number]) Maciej Crowder [id number] PRIMARY SERVICE: Cardiothoracic Surgery CONSULTING SERVICE: Cardiovascular Medicine: General Consults DATE OF ADMISSION: 05/22/2018 DATE OF CONSULT: 05/28/2018 REASON FOR CONSULT AF HISTORY OF PRESENT ILLNESS Maciej Crowder is a 78 year old male Day of Surgery:05/22/2018 S/P SURGERY: Median sternotomy, open heart, aortic valve replacement with 25 ?CE valve. ?Coronary artery bypass x3 with ROSA to LAD, reverse vein graft to obtuse ?marginal circumflex and PDA of the right coronary artery. PAST MEDICAL HISTORY PAST MEDICAL HISTORY Diagnosis Date - Aortic stenosis, moderate 08/09/2015 10/19/2014 echocardiogram. - Diverticulitis - Diverticulosis 09/18/2013 - Inguinal hernia without mention of obstruction or gangrene, unilateral or unspecified, (not specified as recurrent) - Moderate persistent asthma without complication 08/09/2015 09/29/14 Spirometry: [id number], 1.45 L/s, 65% pred. +41% post BD 08/09/15 Gabe: 109 (normal < 25). - Multiple fractures of ribs of both sides 2012 Work accident - Other specified type of hydrocele - Pneumothorax 2013 Work accident PAST SURGICAL HISTORY Procedure Laterality Date - REPAIR ING HERNIA,5+Y/O,REDUCIBL 04/19/08 FAMILY HISTORY FAMILY HISTORY Problem Relation Age of Onset - other (Negative) Other No asthma, allergy. SOCIAL HISTORY Social History Substance Use Topics - Smoking status: Former Smoker Types: Cigars - Smokeless tobacco: Never Used Comment: Occasionally smoked cigars - Alcohol use No HOME MEDICATIONS pravastatin (PRAVACHOL) 10 mg tablet Take 1 tablet by mouth every other day. diltiazem CD (CARDIZEM CD) 180 mg 24 hr capsule Take 1 capsule by mouth once daily. ADVAIR DISKUS 250-50 mcg/dose dsdv USE 1 INHALATION INSTRUCTED TWICE A DAY RINSE AND GARGLE MOUTH WITH WATER AFTER EACH USE metoprolol succinate ER (TOPROL XL) 25 mg 24 hr tablet Take 1 tablet by mouth once daily. mupirocin (BACTROBAN) 2 % ointment Apply 1 application to affected area three times daily. Use twice a day (day before surgery) and once on morning of surgery triamcinolone acetonide (KENALOG) 0.1 % ointment Apply to area twice a day on 4 days off 3 days as needed. aspirin, enteric coated (ADULT LOW DOSE ASPIRIN) 81 mg EC tablet Take 1 tablet by mouth once daily. albuterol HFA (PROAIR HFA) 90 mcg/actuation inhaler Inhale 2 Puffs as instructed every 6 hours as needed. INPATIENT MEDICATIONS Current hospital medications: metoprolol tartrate (short acting) 25 mg tab(s) (LOPRESSOR) 25 mg ORAL q 8 H metoprolol 2.5 mg injection (LOPRESSOR) 2.5 mg INTRAVENOUS ONCE warfarin (COUMADIN) tab(s) 3 mg 3 mg ORAL ONCE - WARFARIN NaCl 0.9% 250 mL iv bolus 250 mL INTRAVENOUS ONCE warfarin order for discharge OTHER PRN senna-docusate 8.6-50 mg 1 tablet (SENNA-S) 1 tablet ORAL BID pravastatin 40 mg tab(s) (PRAVACHOL) 40 mg ORAL AT BEDTIME 0.9% NaCl 3-5 mL 3-5 mL INTRAVENOUS q 12 H 0.9% NaCl 10 mL 10 mL INTRAVENOUS q 12 H aspirin 162 mg chewable tab(s) 162 mg ORAL DAILY potassium chloride ER 10-60 mEq tab(s) (K-DUR, KLOR-CON) 10- 60 mEq ORAL PRN therapeutic multivitamin 1 tablet tab(s) (THERA VITAMIN) 1 tablet ORAL DAILY WITH BREAKFAST pantoprazole DR 20 mg tab(s) (PROTONIX) 20 mg ORAL DAILY (6 AM) bisacodyl 10 mg suppository (DULCOLAX) 10 mg RECTAL DAILY PRN heparin 5,000 Units injection 5,000 Units SUBCUTANEOUS q 12 H albuterol 2.5 mg /3 mL (0.083 %) 2.5 mg (PROVENTIL) 2.5 mg INHALATION QID budesonide 0.5 mg/2 mL 0.5 mg (PULMICORT) 0.5 mg INHALATION BID albuterol 2.5 mg /3 mL (0.083 %) 2.5 mg (PROVENTIL) 2.5 mg INHALATION q 4 H PRN dextrose 50 % 12.5 g injection 12.5 g INTRAVENOUS PRN ondansetron (PF) 4 mg injection (ZOFRAN) 4 mg INTRAVENOUS q 6 H PRN lidocaine 5 % 1 Patch (LIDODERM) 1 Patch TRANSDERMAL DAILY lidocaine patch - REMOVE OTHER AT BEDTIME lidocaine - VERIFY PATCH OTHER q 8 H acetaminophen 650 mg tab(s) (TYLENOL) 650 mg ORAL/FEEDING TUBE q 4 H PRN ALLERGIES ALLERGIES Allergen Reactions - Lipitor [Atorvastat* Other: See Comments Chills and leg pain. PHYSICAL EXAM BP 93/58 Pulse (!) 138 Temp 36.7 ?C (98 ?F) (Oral) Resp 20 Ht 166.4 cm (5' 5.5) Wt 72.3 kg (159 lb 6.4 oz) SpO2 96% BMI 26.12 kg/m? General: in no acute distress. Skin: No clubbing, no cyanosis. Eyes: Extra ocular movements intact Oropharynx: Teeth in good repair. Neck: No jugular venous distention, no carotid bruits, carotids have a normal upstroke, no palpable thyromegaly. Lungs: Clear to auscultation bilaterally but reduced air entry by basally, no wheezing or rhonchi. Heart: Regular rhythm, PMI not displaced, S1, S2 normal, no S3, no S4, no heaves, no rub and no murmur. Abdomen: Soft, nontender, bowel sounds normal, no palpable organomegaly, no bruits. Extremities: No peripheral edema . Grade 2/4 distal pulses bilaterally. Neuro: Oriented to person, place and time, alert, cooperative, gait coordinated. DATA Laboratory: Recent Labs 05/28/18 0553 05/27/1851705/26/18 0545 WBC 7.85 7.65 9.35 HB 11.1* 10.3* 11.5* HCT 33.2* 30.6* 34.0* PLT 213 170 154 Recent Labs 05/28/18 0553 05/27/1818 05/26/18 0545 NA 138 135* 134* K 4.8 4.5 4.8 CO2 23 22 22 BUN 24 29* 36* CREAT 0.99 1.01 1.14 GLUC 89 103* 119* MG 2.6* -- 3.1* Recent Labs 05/28/18 0553 05/27/18 1153 INR 1.1 1.1 Cholesterol, Total (mg/dL) Date Value 04/15/2018 216 HDL Cholesterol (mg/dL) Date Value 04/15/2018 43 LDL Cholesterol (mg/dL) Date Value 04/15/2018 157 Triglyceride (mg/dL) Date Value 04/15/2018 81 No results found for: HBA1C ASSESSMENT AND RECOMMENDATIONS Day of Surgery:05/22/2018 S/P SURGERY: Median sternotomy, open heart, aortic valve replacement with 25 ?CE valve. ?Coronary artery bypass x3 with ROSA to LAD, reverse vein graft to obtuse ?marginal circumflex and PDA of the right coronary artery. Several episodes of PAF since surgery. In AF with RVR this a.m. up to 150 bpm. Transient hypotension with IV beta sharon. Has temporary pacing wires still in situ. Reasonable to trial oral amiodarone for rate control and pharmacological reversion Given the paroxysmal nature of A. fib, cardioversion would be less useful at this time, but would be reconsidered if becomes intolerant of tachycardia arrhythmia. Already on Coumadin, with subtherapeutic INR Plan discussed and patient reviewed with YVETTE Foster MD PHD Pager [phone] 05/28/2018 11:04 AM NUTRITION Observed: 05/28/2018 Status: COMPLETED Source: [place] 10:[address] [facility] REPOSITORY [facility] ID: [id number] Author: Caroline Stephen (Diet-T) Service: Nutrition Therapy Author Type: Business Support Manager Type: Nutrition Filed: 05/28/2018 10:39 AM Note Text: NUTRITION THERAPY FOLLOW-UP NOTE SERVICE DATE: 05/28/2018 SERVICE TIME: 9:00 AM Anthropometrics: Height: 166.4 cm (5' 5.5) Current Weight: Weight: 72.3 kg (159 lb 6.4 oz) Body mass index is 26.12 kg/m?. Loss of lean body mass/visual muscle wasting: no Admitting Diagnosis: Acquired stenosis of aortic valve [I35.0] Present Diet Order: Heart Healthy 4 gm Na Is the patient having any pain that is interfering with oral/enteral intake? No Allergies: ALLERGIES Allergen Reactions - Lipitor [Atorvastat* Other: See Comments Chills and leg pain. Reason for Visit: Nutrition screen: LOS > 6 days Nutrient intake assessment: Current intake of meals: 50 - 75% Patient concerns/Issues: Patient has resolving ileus and diet was just advanced last night to HH 4Gm sodium. Patient reports tolerating diet well. Stated he didnt consume all of dinner, but close too it, did not want to over due it. He reports consuming 100% of his breakfast this morning. Denied nausea, emesis., constipation and reports diarrhea. Patient willing to try nutritional supplement at lunch. Pended Boost Glucose Control daily. Denied unintentional weight loss, usual body weight per patient is 155#. Will continue to monitor toleration of diet and acceptance of nutritional supplements. Nursing Admission Assessment Malnutrition Score Tool: 0 Plan of Care: Recommendation Continue to monitor weekly Pended Boost Glucose Control daily with lunch +250 kcal and 14 grams of protein Discharge Plan: Diet as ordered by Physician MNT Billing Type: Routine Care/15 min 1 unit SIGNATURE: Saima Salomon PATIENT NAME: Maciej Crowder DATE: May 28, 2018 TIME: 10:35 AM PAGER: [phone] PROGRESS Observed: 05/28/2018 Status: COMPLETED Source: [place] 10:[address] [facility] REPOSITORY [facility] ID: [id number] Author: Timi Joiner Rt Service: (none) Author Type: (none) Type: Progress Notes Filed: 05/28/2018 10:34 AM Note Text: Radiology Service Progress Note PATIENT NAME: Maciej Crowder DATE OF SERVICE: May 28, 2018 TIME: 10:33 AM PATIENT IDENTITY VERIFICATION COMPLETED USING TWO (2) METHODS: Patient confirmed name verbally and ID band matches.. PATIENT GENDER DATA: Male PATIENT RELEVANT IMPLANT DATA REVIEWED: Not Applicable RADIOLOGY DEPARTMENT: General X-ray: Exam(s) Completed: Chest X-Ray PERIPHERAL IV DATA: Not applicable SIGNED BY: Timi Joiner Rt May 28, 2018 10:33 AM ECG COMPLETE W Observed: 05/28/2018 Status: C Source: [place] INTERPRETATION 9:40 AM [facility] REPOSITORY NAME : MACIEJ CROWDER PID : [id number] : 1940 Gender : Male Race : ORD : [id number] Procedure Date : May 28 2018 09:40:06 Edit Date : Jun 05 2018 17:19:55 Diagnosis:ATRIAL FIBRILLATION WITH RAPID VENTRICULAR RESPONSE POSSIBLE INFERIOR MYOCARDIAL INFARCTION , AGE UNDETERMINED T WAVE CHANGES ABNORMAL ECG Reconfirmed by FRANCISCO GÓMEZ MD ([id number]) on 06/05/2018 5:19:54 PM Ventricular Rate : 133 BPM Atrial Rate : 388 BPM QRS Duration : 102 ms Q-T Interval : 302 ms QTC Calculation(Bezet) : 449 ms R Centerpoint : 29 degrees T Centerpoint : -48 degrees Test Reason : Location : 361 : [id number] Overread By : FRANCISCO GÓMEZ MD Edited By : FRANCISCO GÓMEZ MD Referred By : , Acquired by : PIA STILES PROGRESS Observed: 05/28/2018 Status: COMPLETED Source: [place] 9:[address] [facility] REPOSITORY [facility] ID: [id number] Author: Kasia Torres Service: Cardiac Surgery Author Type: Nurse Practitioner Type: Progress Notes Filed: 05/28/2018 11:41 AM Note Text: [facility] C[facility] POSTOP PROGRESS NOTE Day of Surgery:05/22/2018 S/P SURGERY: Median sternotomy, open heart, aortic valve replacement with 25 CE valve. Coronary artery bypass x3 with ROSA to LAD, reverse vein graft to obtuse marginal circumflex and PDA of the right coronary artery. INTERVAL EVENTS / PERTINENT ROS: Transferred to [facility] on 05/25/18 Sitting up at bedside, converted to aflutter RVR PAF: continue BB and coumadin. Start amio as discussed with Dr. Foster. Leave back up pacer. 250cc NS bolus given today CAD: CABG x3 ASA/BB/statin FVO: off lasix, room air, xray small effusions KUB + ileus improving, tolerating advanced diet, stool for Cdiff negavtive Disp: from [place], [place]. PT: Home. CM following. DC once rhythm stable. Will follow up with local PCP and artificial insemination technician Rhythm: atrial flutter RVR Intake/Output Summary (Last 24 hours) at 05/28/18 0911 Last data filed at 05/28/18 0825 Gross per 24 hour Intake 1180 ml Output 420 ml Net 760 ml EKG: most recent image reviewed TELE: most recent recordings reviewed CXR: most recent image reviewed Echocardiogram: most recent report reviewed PHYSICAL EXAM: BP 106/58 Pulse (!) 125 Temp 36.7 ?C (98 ?F) (Oral) Resp 17 Ht 166.4 cm (5' 5.5) Wt 72.3 kg (159 lb 6.4 oz) SpO2 96% BMI 26.12 kg/m? Neuro: AANDO x 3 moves all extremities with no apparent weakness, uses wheeled walker to ambulate CV: no jugular venous distention Heart Exam: RRR without murmur, gallop, or rubs. Resp: clear to auscultation bilaterally and diminished breath sounds to bases Abd: The abdomen is soft, nontender, nondistended; BS normal; no masses or organomegaly noted. Skin: Skin color, texture, turgor normal, no suspicious rashes or lesions Ext: Trace LE edema Surgical incisions: clean, dry and intact; sternum stable with cough right SVG harvest site well approximated and edematous and ecchymotic to margins Chest tube: Midline Alejandro drain to bulb suction patent for serous sanguinous drainage; 70cc/24 hours Pacer wires: VVI back up at 30 HISTORY, ASSESSMENT AND PLAN: Problem Transition of Care Performed With Sharing of Clinical Summary Indication for Surgery: Severe , CAD Preop LVEF: 45% RVF: Normal Cards: June EKG: NSR Postop LVEF: 50% RVF: Normal Important/Relevant PMH/PSH: mild asthma, diverticulosis. Work accident with rib fractures AND pneumothorax. Family hx of Malignant Hyperthermia. Preoperative Hospital Course: Elective Surgery Airway Difficulty: Grade I - No special instrumentation Pacing Wires: Yes: Atrial and Ventricular: When discontinuing pacing wires: Cut A/Pull V pacing wires Chronological List of Surgeries and Major Events (Diagnosis): (Surgeries in bold characters) 05/22/2018: CABG x3, ROSA-LAD, SVG-OM1, SVG-PDA, AVR # 25 CE; OR course with coagulopathy treated with platelets. Postoperative hypotension requiring norepinephrine infusion AND cardiac insufficieny requiring epinephrine. 05/24/2018 - AF with RVR A/P of Major Active Problems (excluding routine care and common problems): Cardiac: Atrial Fibrillation: Currently in SR. Episode of ANGEL with amiodarone infusion. Rate control with BB. GI: Postoperative Ileus: BM x 4 overnight. Continue bowel regimen. Daily KUB. To Do or to Watch: Transferred to [facility] on 05/25/18 AANDPlan: 05/28/18 -PAF: continue BB and coumadin. Start amio as discussed with Dr. Foster. Leave back up pacer. 250cc NS bolus given today CAD: CABG x3 ASA/BB/statin -FVO: off lasix, room air, xray small effusions -KUB + ileus improving, tolerating advanced diet, stool for Cdiff negavtive -Disp: from [place], [place]. PT: Home. CM following. DC once rhythm stable. Will follow up with local PCP and artificial insemination technician Discharge Planning: Anticipated Discharge Date: Unknown Barriers to Discharge: Unknown Care Management Discharge Needs: Coronary Artery Disease Involving [place] Coronary Artery 05/22/2018 - CABG x3, ROSA-LAD, SVG-OM1, SVG-PDA CAD Core Measures: Aspirin: Yes Beta blockers: Yes Statins: Yes Severe Aortic Stenosis History: Severe Assessment: 05/22/2018 - AVR # 25 CE surgical pathology: Aortic valve, excision - Severe calcification and severe fibrosis Plan: ASA QD Atelectasis History: postoperative atelectasis Assessment: room air, diminished breath sounds to bases, bibasilar on xray Plan: OOB/ambulate, PEP Moderate Persistent Asthma Without Complication History: Home medication: Advair, Albuterol Assessment: no wheezing, room air, denies SOB Plan: Continue budesonide and albuterol inhalers Paroxysmal Atrial Fibrillation (Hcc) History: New-onset AF (05/24); holding amiodarone in the setting of junctional bradycardia. Received 660mg 05/24 Assessment: converted to afib/flutter RVR, aymptomatic 05/27 back in NSR episodes evening 10/29 of high rate afib Plan: seen with Dr. Fostre will start amio PO and leave back up pacer continue BB and coumadin replace electrolytes PRN Dr. Lyles (artificial insemination technician) will manage coumadin. Provide script for 1st lab draw and have results faxed to [phone] Dr. Lyles's office. The lab is in the same building as his office Ileus (Hcc) History: CVICU: Abdominal distention without pain; KUB with ileus. BM x 4 overnight. Assessment: recent KUB improved ileus, still having diarrhea but not as frequent, + bowel sounds, denies abdominal pain, abdomen round and soft, tolerating diet Plan: Continue bowel regimen and advance diet stool for C diff negative Acute On Chronic Systolic Heart Failure (Hcc) History: Preop EF 45%. Outpatient meds Diltiazem and Toprol Assessment: normal function on intra op MARY Plan: on BB, holding lasix BUN rising and BP borderline low Post-Operative Pain History: post op OHS Assessment: denies pain Plan: continue with Tylenol AND Lidoderm patches Discharge Planning Issues 78 yr old Sikhism male from [place], [place]. Here with family. CM following. DC once rhythm stable. No skilled needs. Prefers to follow up with local PCP and artificial insemination technician. Dr. Lyles (artificial insemination technician) office # [phone] . Provide script for first INR lab draw and have results faxed to Dr. Lyles. There is a lab in the building where cardiologists office is. DAILY STEP DOWN CHECKLIST FOR CATHETER RELATED INFECTION PREVENTION CVC, PICC, [place] and/or Permacath present? No Does the patient have a urinary catheter beyond POD 2? No VTE Risk Assessment: Moderate risk VTE Mechanical and/or Pharmacologic Prophylaxis: GCS, Subcutaneous Heparin and SCD Labs and medications reviewed in Epic Case discussed in depth with: CTS SIGNATURE: Kasia Patel APRN.CNP PATIENT NAME: Maciej Crowder DATE: May 28, 2018 TIME: 9:12 AM PAGER/CONTACT #: [phone] ETX#[id number] PROTIME Collected: 05/28/2018 Status: F Source: [place] 5:53 AM [facility] REPOSITORY TYPE CODE TESTS RESULT OUT OF RANGE REFERENCE UNITS LAB PSEC 9.7-13.0 sec PT Sec 11.4 LAB INR 0.9-1.3 PT INR 1.1 Result Comment: Vitamin K Antagonist (VKA) Therapeutic Range: INR 2 to 3 (Target INR of 2.5) Note: For patients treated with VKA drugs, such as warfarin, the [place] [employer] 2012 Guideline recommends a therapeutic INR range of 2 to 3 (target INR of 2.5). This recommendation includes high-risk patients with antiphospholipid syndrome with previous arterial or venous thromboembolism, current-generation mechanical or bioprosthetic aortic heart valve replacement. Note: Patients with mechanical aortic valve replacement and additional risk factors for thromboembolic events (atrial fibrillation, previous thromboembolism, LV dysfunction, hypercoagulable conditions) or an older generation mechanical AVR (i.e., ball in-Cage) or any mechanical MVR should have a INR therapeutic range of 2.5 to 3.5 (target INR of 3). Suleiman GH, et al. Chest 2012, 141:7S-47S eClina RA, et al. [facility] 2017, 70: 252-289 Performed By: #### PT, CBC, CMP, MG1 #### [facility] [address] [place], [place] [address] CBC Collected: 05/28/2018 Status: F Source: [place] 5:[address] [facility] REPOSITORY TYPE CODE TESTS RESULT OUT OF REFERENCE UNITS RANGE LAB WBC 3.70-11.00 k/uL WBC 7.85 LAB RBC 4.20-6.00 m/uL Low RBC 3.48 LAB HGB 13.0-17.0 g/dL Low Hemoglobin 11.1 LAB HCT 39.0-51.0 % Low Hematocrit 33.2 LAB MCV 80.0-100.0 fL MCV 95.4 LAB MCH 26.0-34.0 pG MCH 31.9 LAB MCHC 30.5-36.0 g/dL MCHC 33.4 LAB RDWCV 11.5-15.0 % RDW-CV 13.7 LAB PLTCT 150-400 k/uL Platelet Count 213 LAB MPV 9.0-12.7 fL MPV 9.7 LAB ABSNUC <0.01 k/uL Absolute nRBC <0.01 Performed By: #### PT, CBC, CMP, MG1 #### [facility] [address] [place], [place] [address] COMP METABOLIC PANEL Collected: 05/28/2018 Status: F Source: [place] 5:53 AM [facility] REPOSITORY TYPE CODE TESTS RESULT OUT OF REFERENCE UNITS RANGE LAB TP 6.3-8.0 g/dL Protein, Total 6.8 LAB ALB 3.9-4.9 g/dL Low Albumin 3.4 LAB CA 8.5-10.2 mg/dL Calcium, Total 8.9 LAB TBIL 0.2-1.3 mg/dL Bilirubin, Total 0.7 LAB ALKP 38-113 U/L Alkaline Phosphatase 56 LAB AST 14-40 U/L AST 24 LAB GLU 74-99 mg/dL Glucose 89 Result Comment: The [place] [employer] (ADA) provides guidance for cutoff values for fasting glucose and random glucose. The ADA defines fasting as no caloric intake for at least 8 hours. Fas ting plasma glucose results between 100 to 125 mg/dL indicate increased risk for diabetes (prediabetes). Fasting plasma glucose results greater than or equal to 126 mg/dL meet the criteria for diagnosis of diabetes. In the absence of unequivocal hyperglycemia, results should be confirmed by repeat testing. In a patient with classic symptoms of hyperglycemia or hyperglycemic crisis, random plasma glucose results greater than or equal to 200 mg/dL meet the criteria for diagnosis of diabetes. Reference: Standards of Medical Care in Diabetes 2016, [place] [employer]. Diabetes Care. 2016.39(Suppl 1). LAB BUN 9-24 mg/dL BUN 24 LAB CRET 0.73-1.22 mg/dL Creatinine 0.99 LAB NA 136-144 mmol/L Sodium 138 LAB K 3.7-5.1 mmol/L Potassium 4.8 LAB CL 97-105 mmol/L Chloride 99 LAB CO2 22-30 mmol/L CO2 23 LAB AGAP 9-18 mmol/L Anion Gap 16 LAB ALT 10-54 U/L ALT 27 LAB GFRAA eGFR- Amer. >60 LAB GFRNAA . eGFR-All Other Races >60 Result Comment: eGFR (Estimated GFR) Units of measure: mL/min/1.73 meters squared eGFR is derived from the reexpressed MDRD Study equation using the following parameters: serum creatinine, age, gender and race. The creatinine assay has been calibrated to be traceable to IDMS. An eGFR <60 mL/min/1.73m2 for >3 months is consistent with chronic kidney disease. Refer to KDOQI guidelines for clinical interpretation. In patients with unstable renal function, e.g. those with acute kidney injury, the eGFR may not accurately reflect actual GFR. Performed By: #### PT, CBC, CMP, MG1 #### [facility] [employer] [address] [place], [place] [address] MAGNESIUM Collected: 05/28/2018 Status: F Source: [place] 5:[address] [facility] REPOSITORY TYPE CODE TESTS RESULT OUT OF REFERENCE UNITS RANGE LAB MG 1.7-2.3 mg/dL High Magnesium 2.6 Performed By: #### PT, CBC, CMP, MG1 #### [facility] [employer] [address] [place], [place] [address] NURSING PROG Observed: 05/27/2018 Status: COMPLETED Source: [place] 9:[address] [facility] REPOSITORY [facility] ID: [id number] Author: Emily (Rn) CHERI Pearson Service: (none) Author Type: Registered Nurse Type: Nursing Progress Note Filed: 05/28/2018 4:16 AM Note Text: Nursing Progress Note Patient Name: Maciej Crowder Patient Location: [place] [address]/[id number] Event(s) / Intervention Note: The patient was observed having the following problems: Afib RVR 120-150s BP 99/61. Asyptomatic . The time of the event occurred at: 1999. The following intervention(s) were initiated: Dr. Bhagat notified via alpha text [id number]. After the initiated interventions, the following observation(s) were made: Dr. Bhagat ordered 2.5 IV metoprolol and [address] Bhagat notified that the last Mg was 3.1 on 05/[address] Bhagat was not concerned at this time. Pharmacy clarified this decision. Patient has no complaints. Will continue to monitor 0000: Pt in SR. 0300: Pt in Afib RVR. HR 130-140s. Asymptomatic. 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 HR 130-150 BP 100/68. Pt asymptomatic. Awaiting further instructions. Will continue to monitor pt. This note was completed by: Emily Pearson RN [facility] Observed: 05/27/2018 Status: COMPLETED Source: [place] 3:[address] [facility] RE[facility]ITORY [place] ID: [id number] Author: Kamryn (Ex Phys) Bebo Service: Cardiovascular Medicine Author Type: Cath Lab Tech Type: Allied Health Filed: 05/27/2018 3:09 PM Note Text: CARDIAC REHABILITATION PHASE I FOLLOW-UP PATIENT NAME: Maciej Crowder SERVICE DATE: May 27, 2018 SESSION TIME: 2:37pm Distance Duration BP HR SpO2 % Pain (0-10) Assist/Device ~200ft ~3-4 minutes Pre 106/71 84 94% RA 1-2 Assist: Standby supervision Device: Walker Peak 153/72 94 95% RA 1-2 Post N/A N/A N/A N/A Comments: Patient ambulated 2x today in the [place], ~200 ft each with the wheeled walker. Patient was mostly steady ambulating with the wheeled walker and standby assist. No complaints voiced at this time. Tolerating exercise well, continue with exercise 4 - 6 x/day. Recommend enrollment in Phase 2, Outpatient Cardiac Rehab. Order given to the patient. Home Program: Reviewed home activity guidelines as outlined below. Frequency: 4 - 6 days/week Intensity: 3 - 4/10 RPE Type: walking - start at 3 - 5 minutes/4 - 6 x day Duration: 20 - 30 minutes -----> 45 + minutes Kamryn Lagunas, Ex Phys Pager:[phone] May 27, 2018 3:06 PM PROGRESS Observed: 05/27/2018 Status: COMPLETED Source: [place] 2:[address] [facility] REPOSITORY [place] ID: [id number] Author: Kasia Torres Service: Cardiac Surgery Author Type: Nurse Practitioner Type: Progress Notes Filed: 05/27/2018 4:03 PM Note Text: [facility] C[facility] POSTOP PROGRESS NOTE Day of Surgery:05/22/2018 S/P SURGERY: Median sternotomy, open heart, aortic valve replacement with 25 CE valve. Coronary artery bypass x3 with ROSA to LAD, reverse vein graft to obtuse marginal circumflex and PDA of the right coronary artery. INTERVAL EVENTS / PERTINENT ROS: Transferred to [facility] on 05/25/18 -no complaints, had high rate afib last evening, back in NSR this AM -PAF: continue BB, OK for coumadin per Dr. Urbina CAD: CABG x3 ASA/BB/statin -FVO: dc lasix, room air, xray small effusions -KUB + ileus improving, advance diet, stool for Cdiff negavtive -Disp: from [place], [place]. PT: Home. CM following. DC once rhythm stable. Will follow up with local PCP and artificial insemination technician Rhythm: NSR with intermittent afib Intake/Output Summary (Last 24 hours) at 05/27/18 1436 Last data filed at 05/27/18 0928 Gross per 24 hour Intake 1640 ml Output 260 ml Net 1380 ml EKG: most recent image reviewed TELE: most recent recordings reviewed CXR: most recent image reviewed Echocardiogram: most recent report reviewed PHYSICAL EXAM: BP 113/71 Pulse 84 Temp 36.6 ?C (97.9 ?F) Resp 18 Ht 166.4 cm (5' 5.5) Wt 73.5 kg (162 lb 1.6 oz) SpO2 98% BMI 26.56 kg/m? Neuro: AANDO x 3 moves all extremities with no apparent weakness, uses wheeled walker to ambulate CV: no jugular venous distention Heart Exam: RRR without murmur, gallop, or rubs. Resp: clear to auscultation bilaterally and diminished breath sounds to bases Abd: The abdomen is soft, nontender, nondistended; BS normal; no masses or organomegaly noted. Skin: Skin color, texture, turgor normal, no suspicious rashes or lesions Ext: Trace LE edema Surgical incisions: clean, dry and intact; sternum stable with cough right SVG harvest site well approximated and edematous and ecchymotic to margins Chest tube: Midline Alejandro drain to bulb suction patent for serous sanguinous drainage; 85cc/24 hours Pacer wires: VVI back up at 30 HISTORY, ASSESSMENT AND PLAN: Problem Transition of Care Performed With Sharing of Clinical Summary Indication for Surgery: Severe , CAD Preop LVEF: 45% RVF: Normal Cards: June EKG: NSR Postop LVEF: 50% RVF: Normal Important/Relevant PMH/PSH: mild asthma, diverticulosis. Work accident with rib fractures AND pneumothorax. Family hx of Malignant Hyperthermia. Preoperative Hospital Course: Elective Surgery Airway Difficulty: Grade I - No special instrumentation Pacing Wires: Yes: Atrial and Ventricular: When discontinuing pacing wires: Cut A/Pull V pacing wires Chronological List of Surgeries and Major Events (Diagnosis): (Surgeries in bold characters) 05/22/2018: CABG x3, ROSA-LAD, SVG-OM1, SVG-PDA, AVR # 25 CE; OR course with coagulopathy treated with platelets. Postoperative hypotension requiring norepinephrine infusion AND cardiac insufficieny requiring epinephrine. 05/24/2018 - AF with RVR A/P of Major Active Problems (excluding routine care and common problems): Cardiac: Atrial Fibrillation: Currently in SR. Episode of ANGEL with amiodarone infusion. Rate control with BB. GI: Postoperative Ileus: BM x 4 overnight. Continue bowel regimen. Daily KUB. To Do or to Watch: Transferred to [facility] on 05/25/18 AANDPlan: 05/27/18 -PAF: continue BB, OK for coumadin per Dr. Urbina CAD: CABG x3 ASA/BB/statin -FVO: dc lasix, room air, xray small effusions -KUB + ileus improving, advance diet, stool for Cdiff negavtive -Disp: from [place], [place]. PT: Home. CM following. DC once rhythm stable. Will follow up with local PCP and artificial insemination technician Discharge Planning: Anticipated Discharge Date: Unknown Barriers to Discharge: Unknown Care Management Discharge Needs: Coronary Artery Disease Involving [place] Coronary Artery 05/22/2018 - CABG x3, ROSA-LAD, SVG-OM1, SVG-PDA CAD Core Measures: Aspirin: Yes Beta blockers: Yes Statins: Yes Severe Aortic Stenosis History: Severe Assessment: 05/22/2018 - AVR # 25 CE surgical pathology: Aortic valve, excision - Severe calcification and severe fibrosis Plan: ASA QD Atelectasis History: postoperative atelectasis Assessment: room air, diminished breath sounds to bases, bibasilar on xray Plan: OOB/ambulate, PEP Moderate Persistent Asthma Without Complication History: Home medication: Advair, Albuterol Assessment: no wheezing, room air, denies SOB Plan: Continue budesonide and albuterol inhalers. Paroxysmal Atrial Fibrillation (Hcc) History: New-onset AF (05/24); holding amiodarone in the setting of junctional bradycardia Assessment: back in NSR episodes evening 05/26 of high rate afib Plan: continue BB OK to start coumadin per Dr. Urbina replace electorlytes Dr. Lyles (artificial insemination technician) will manage coumadin. Provide script for 1st lab draw and have results faxed to [phone] Ileus (Hcc) History: CVICU: Abdominal distention without pain; KUB with ileus. BM x 4 overnight. Assessment: recent KUB improved ileus, still having diarrhea but not as frequent, + bowel sounds, denies abdominal pain, abdomen round and soft Plan: Continue bowel regimen and advance diet stool for C diff negative Acute On Chronic Systolic Heart Failure (Hcc) History: Preop EF 45%. Outpatient meds Diltiazem and Toprol Assessment: normal function on intra op MARY Plan: on BB, holding lasix BUN rising and BP borderline low Post-Operative Pain History: post op OHS Assessment: denies pain Plan: Avoid opioids in the setting of ileus; continue supplementation with Tylenol AND Lidoderm patches. Goal pain score <4. Discharge Planning Issues 78 yr old Sikhism male from [place], [place]. Here with family. CM following. DC once rhythm stable. No skilled needs. Prefers to follow up with local PCP and artificial insemination technician. Dr. Lyles (artificial insemination technician) office # [phone] Fax # [phone]. Provide script for first INR lab draw and have results faxed. There is a lab in the building where cardiologists office is. DAILY STEP DOWN CHECKLIST FOR CATHETER RELATED INFECTION PREVENTION CVC, PICC, [place] and/or Permacath present? No Does the patient have a urinary catheter beyond POD 2? No VTE Risk Assessment: Moderate risk VTE Mechanical and/or Pharmacologic Prophylaxis: GCS, Subcutaneous Heparin and SCD Labs and medications reviewed in Epic Case discussed in depth with: CTS SIGNATURE: Kasia Patel APRN.CNP PATIENT NAME: Maciej Crowder DATE: May 27, 2018 TIME: 8:09 AM PAGER/CONTACT #: [phone] ETX#[id number] PROTIME Collected: 05/27/2018 Status: F Source: [place] 11:[address] [facility] REPOSITORY TYPE CODE TESTS RESULT OUT OF RANGE REFERENCE UNITS LAB PSEC 9.7-13.0 sec PT Sec 11.5 LAB INR 0.9-1.3 PT INR 1.1 Result Comment: Vitamin K Antagonist (VKA) Therapeutic Range: INR 2 to 3 (Target INR of 2.5) Note: For patients treated with VKA drugs, such as warfarin, the [employer] 2012 Guideline recommends a therapeutic INR range of 2 to 3 (target INR of 2.5). This recommendation includes high-risk patients with antiphospholipid syndrome with previous arterial or venous thromboembolism, current-generation mechanical or bioprosthetic aortic heart valve replacement. Note: Patients with mechanical aortic valve replacement and additional risk factors for thromboembolic events (atrial fibrillation, previous thromboembolism, LV dysfunction, hypercoagulable conditions) or an older generation mechanical AVR (i.e., ball in-Cage) or any mechanical MVR should have a INR therapeutic range of 2.5 to 3.5 (target INR of 3). Suleiman GH, et al. Chest 2012, 141:7S-47S Celina RA, et al. [facility] 2017, 70: 252-289 Performed By: #### PT #### [facility] [address] [id number] CASE MANAGEM Observed: 05/27/2018 Status: COMPLETED Source: [place] 11:[address] [facility] REPOSITORY HNO ID: [id number] Author: Maria L Morillo) CHERI Romero Service: Care Management Author Type: Registered Nurse Type: Care Mgt Progress Note Filed: 05/27/2018 11:41 AM Note Text: CARE MANAGEMENT PROGRESS NOTE CHANGE IN CONDITION SERVICE DATE: 05/27/2018 SERVICE TIME: 11:37 AM LOS: 5 days Needs Prior to Discharge: To Be Determined Patient is a 78 year old male who was transferred from the ICU to J stepdown unit on 05/25/18. He is s/p 05/22/18 AVR, CABGx3. PT eval today indicates home/OP cardiac rehab once cleared by . Patient is on RA. He was reportedly independent and living with spouse in [facility]. Will follow and plan for discharge accordingly. Anticipating discharge with no skilled needs when medically cleared. SIGNATURE: Maria L Romero RN PATIENT NAME: Maciej Crowder DATE: May 27, 2018 TIME: 11:37 AM PAGER/CONTACT #: [phone] ECG COMPLETE W Observed: 05/27/2018 Status: F Source: [place] INTERPRETATION 11:37 AM [facility] REPOSITORY NAME : MACIEJ CROWDER PID : [id number] : 1940 Gender : Male Race : ORD : [id number] Procedure Date : May 27 2018 11:37:15 Edit Date : May 28 2018 15:57:07 Diagnosis:NORMAL SINUS RHYTHM INFERIOR MYOCARDIAL INFARCTION , AGE UNDETERMINED ABNORMAL ECG Confirmed by MD RICARDO, PhD, HERNAN ([id number]) on 05/28/2018 3:56:58 PM Ventricular Rate : 79 BPM Atrial Rate : 79 BPM P-R Interval : 184 ms QRS Duration : 92 ms Q-T Interval : 396 ms QTC Calculation(Bezet) : 454 ms P Centerpoint : 61 degrees R Centerpoint : 17 degrees T Centerpoint : -12 degrees Test Reason : Location : 361 : [facility] Overread By : MD RICARDO, PhD,HERNAN Edited By : MD RICARDO, PhD,HERNAN Referred By : , Acquired by : PIA STILES XR ABDOMEN 1V SUPINE Observed: 05/27/2018 Status: F Source: [place] 11:[address] [facility] REPOSITORY * * *Final Report* * * DATE OF EXAM: May 27 2018 11:31AM MARIE [id number] - XR ABDOMEN 1V SUPINE / PROCEDURE REASON: Ileus * * * * Physician Interpretation * * * * ABDOMEN, 1 VIEW. CLINICAL INFORMATION: 78-year-old man with abdominal distention TECHNIQUE: Supine abdomen, 2 image(s) COMPARISON: KUB 05/26/2018, CTA 04/15/2018 RESULT: Small bowel dilation measures up to 4 cm, mildly improved compared to the prior exam. Gas is also seen in normal caliber to mildly dilated colon. Findings likely represent ileus, mildly improved compared to the prior exam. Of note on prior CTA, all of the small bowel is within the right abdomen, and all of the colon within the left abdomen, and the SMA and SMV are reversed, consistent with malrotation. There is likely a small left pleural effusion with associated atelectasis. IMPRESSION: ILEUS, MILDLY IMPROVED COMPARED TO 05/26/2018. Laminating Machine Tender: PSCTracy Transcribe Date/Time: May 27 2018 12:26P Dictated by : LYLE POSEY MD This examination was interpreted and the report reviewed and electronically signed by: LYLE POSEY MD on May 27 2018 12:31PM EST [id number] [id number] NT Observed: 05/27/2018 Status: COMPLETED Source: [place] 10:[address] [facility] REPOSITORY HNO ID: [id number] Author: Angela (PtDella Forde Service: Physical Therapy Author Type: Physical Therapist Type: Therapy (PT/OT/Speech/Resp) Filed: 05/27/2018 10:25 AM Note Text: Physical Therapy Evaluation SERVICE DATE: 05/27/2018 SERVICE TIME: 0815 to 0857 ROOM: [place] [address] Recommended Discharge Disposition: Home Recommended Discharge Disposition Comments: OP cardai rehab once cleared by Anticipated Discharge Needs: Physical Assist at Home;Supervision at Home;Equipment Physical Assist at Home for: Ambulation;Safety;Transportation Supervision at Home due to: Impaired cognition (recent surgery) Recommended Discharge Equipment: Wheeled Walker PT Recommendations to Nursing: Ambulate with device;To bathroom;In halls;Transfer to/from chair;OOB for Meals;With assist of 1 person Device: Wheeled Walker PT 6 Clicks Score: 22 Precautions/Activity Restrictions: Bed/Chair Alarm;Cardiac;Sternal Precaution/Activity Restriction Comments: Mobilize ASSESSMENT : Pt presented with good functional mobility and endurance, as able to ambulate 120' with wheeled walker. Pt able to mobilize well with stand by assistance. Pt did score a 1/5 on the mini cog which warrants additional cog testing and would benefit from a follow up with Occupational Therapy; would recommend 24/7 supervision at d/c. Pt functioning near baseline and has no other identified skilled PT needs at this time, therefore, PT will sign off to cardiac rehab. Pt and family aware and in agreement with plan. Patient Disposition at Start of Session: OOB in Chair;Call Alejandro in Reach;Chair Alarm;Family Present Patient Disposition at End of Session: OOB in Chair;Call Alejandro in Reach;Chair Alarm;Family Present Tolerated Full Session Physical Therapy Problem List: Cognitive Deficit Patient /Caregiver Goals: Walk;Go Home Goals for Plan of Care: Transfer sit to/from stand with: Stand By Assistance Ambulate with: Stand By Assistance Distance: >100 Device: Wheeled Walker Goal: Pt and family will recall sternal/cardiac precautions with min verbal cues Goals met this date 05/27/18 Rehab Potential: Good PLAN: Treatment Frequency (times per week): Discontinue Therapy Services Reasons Therapy Services Discontinued: Goals met;No skilled needs Plan of Care developed with: Patient;Family TREATMENT INTERVENTIONS: Therapy Diagnosis: Reduced mobility-other Interventions Provided: Evaluation;Therapeutic Activity (41845);Gait Training (04890) $ Evaluation-Low (55922) Billed Units: 1 unit Therapeutic Activity (45403) Treatment Minutes: 15 1 unit Skilled Intervention(s): Transfer Training: Instruction in sit to stand technique with proper hand placement and body positioning at edge of chair Instruction in stand to sit technique with lower extremities touching chair and reaching back for surface -initial verbal cues for proper and safe transition, avoid pulling self up with walker Reviewed: cardiac/sternal precautions-handout provided and reviewed Discussion regarding: -energy conservation techniques, pacing and pursed lip breathing -encouraged symptom awareness -monitored vitals throughout -encouraged use of RPE scale (ligh to moderate intensity, 2-3/10) Reviewed bedside exercise program for warm up and cool down-handouts provided and reviewed -seated position (toe/heel raises, LAQ, marches/hip flexion x 10 reps each); min verbal cues Encouraged use of bedside breathing device-10x/hour, education on technique and frequency Education: PT POC and d/c planning-home; home safety and fall prevention; negative effects of bed rest; pain mgmt; up with assistance; OOB to chair; use of SCDs -wound healing -travel needs, positioning in car -OP cardiac rehab Gait Training (81765) Treatment Minutes: 12 1 unit Skilled Intervention(s): Ambulation with wheeled walker x 120 ft, stand by assistance -instruction for hand placement and standing within walker frames -sized walker for room use; reviewed walker safety techniques -instruction for taking larger steps with increased dory for normalized gait pattern and fall reduction -tactile and verbal cues for upright posture with forward gaze for improved environmental awareness -cues for proper turning --pt able to demonstrate improved gait with above cueing/instruction Education: ambulation with nursing staff 4-6x/day-short frequent walks vs longer walks, symptom awareness, pacing Discussion re: home walking schedule-frequency, progression, goals; thorough discussion with spouse and patient; all questions answered to patient and family satisfaction Total Timed Code Treatment Minutes: 27 Total Treatment Time (minutes): 42 FUNCTIONAL G CODE: PT 6 Clicks Score: 22 (05/27/18814) Mobility: Walking and Moving Around Current Status (G8978): (05/27/18814) Mobility: Walking and Moving Around Goal Status (G8979): (05/27/18814) Mobility: Walking and Moving Around Discharge Status (G8980): (05/27/18814) Based on clinical assessment and the score on the 6 Clicks Functional Assessment Tool, the G code and corresponding severity modifiers are documented above. SUBJECTIVE: Current Hospital Course: Chart reviewed; Pt is a 78 y/o male s/p Median sternotomy, open heart, aortic valve replacement with 25 CE valve. Coronary artery bypass x3 with ROSA to LAD, reverse vein graft to obtuse marginal circumflex and PDA of the right coronary artery on 05/22/18. Transferred from ICU to SDU on 05/25/18. Reason for Physical Therapy Consult : Unsuccessful mobility by nursing Relevant Past Medical History: asthma, aortic stenosis, CAD Patient Report: I was wondering what I was able to do and not do. Pt in chair upon arrival and agreeable to PT session, chair alarm on. Family at bedside Home Environment Patient Lives With: Family Assistance Available: 24 Hour Entry To Home: No Stairs Number Of Stairs To Bed/Bath: 0 Tub/Shower Type: walk-in shower Laundry: first floor Equipment Owned: Wheeled Walker Prior Functional Level: Within Functional Limits Prior Functional Level Comments: pt reports indep w/ ADL; amb w/o AD; -falls; -drives OBJECTIVE: Mini Cog Score: 1 (05/27/18814) CURRENT FUNCTIONAL STATUS: Current Functional Mobility Assist Level Additional Information Rolling Supine to Sit NT-chair pre/post session Sit to Supine Scooting Sit to Stand Stand By Assistance Stand to Sit Stand By Assistance Bed to Chair Toilet/Commode Gait Stand By Assistance Gait Device: Wheeled Walker Gait Distance (feet): 120 Stairs (NT-declined, no stairs at home) Curb Step Car Transfer General Gait Deviations: Dory decreased;Step length decreased;Flexed trunk posture Balance: Static Standing;Dynamic Standing Static Standing Balance: Supervision Dynamic Standing Balance: Stand By Assistance Pt into chair post session-needs in reach/call light. Chair alarm on. Pt in NAD. Family at bedside Please see discipline specific clinical documentation flowsheet for complete details for this therapy evaluation/treatment. SIGNATURE: Angela Forde, PT, DPT PATIENT NAME: Maciej Crowder DATE: May 27, 2018 TIME: 10:17 AM CBC Collected: 05/27/2018 Status: F Source: [place] 5:[address] [facility] REPOSITORY TYPE CODE TESTS RESULT OUT OF REFERENCE UNITS RANGE LAB WBC 3.70-11.00 k/uL WBC 7.65 LAB RBC 4.20-6.00 m/uL Low RBC 3.22 LAB HGB 13.0-17.0 g/dL Low Hemoglobin 10.3 LAB HCT 39.0-51.0 % Low Hematocrit 30.6 LAB MCV 80.0-100.0 fL MCV 95.0 LAB MCH 26.0-34.0 pG MCH 32.0 LAB MCHC 30.5-36.0 g/dL MCHC 33.7 LAB RDWCV 11.5-15.0 % RDW-CV 13.6 LAB PLTCT 150-400 k/uL Platelet Count 170 LAB MPV 9.0-12.7 fL MPV 9.5 LAB ABSNUC <0.01 k/uL Absolute nRBC <0.01 Performed By: #### CBC, CMP #### [facility] [address] [address] COMP METABOLIC PANEL Collected: 05/27/2018 Status: F Source: [place] 5:[address] [facility] REPOSITORY TYPE CODE TESTS RESULT OUT OF REFERENCE UNITS RANGE LAB TP 6.3-8.0 g/dL Low Protein, Total 6.1 LAB ALB 3.9-4.9 g/dL Low Albumin 3.3 LAB CA 8.5-10.2 mg/dL Low Calcium, Total 8.4 LAB TBIL 0.2-1.3 mg/dL Bilirubin, Total 0.6 LAB ALKP 38-113 U/L Alkaline Phosphatase 47 LAB AST 14-40 U/L AST 20 LAB GLU 74-99 mg/dL Glucose High 103 Result Comment: The [place] [employer] (ADA) provides guidance for cutoff values for fasting glucose and random glucose. The ADA defines fasting as no caloric intake for at least 8 hours. Fas ting plasma glucose results between 100 to 125 mg/dL indicate increased risk for diabetes (prediabetes). Fasting plasma glucose results greater than or equal to 126 mg/dL meet the criteria for diagnosis of diabetes. In the absence of unequivocal hyperglycemia, results should be confirmed by repeat testing. In a patient with classic symptoms of hyperglycemia or hyperglycemic crisis, random plasma glucose results greater than or equal to 200 mg/dL meet the criteria for diagnosis of diabetes. Reference: Standards of Medical Care in Diabetes 2016, [place] [employer] Association. Diabetes Care. 2016.39(Suppl 1). LAB BUN 9-24 mg/dL BUN High 29 LAB CRET 0.73-1.22 mg/dL Creatinine 1.01 LAB NA 136-144 mmol/L Low Sodium 135 LAB K 3.7-5.1 mmol/L Potassium 4.5 LAB CL 97-105 mmol/L Chloride 97 LAB CO2 22-30 mmol/L CO2 22 LAB AGAP 9-18 mmol/L Anion Gap 16 LAB ALT 10-54 U/L ALT 24 LAB GFRAA eGFR- Amer. >60 LAB GFRNAA . eGFR-All Other Races >60 Result Comment: eGFR (Estimated GFR) Units of measure: mL/min/1.73 meters squared eGFR is derived from the reexpressed MDRD Study equation using the following parameters: serum creatinine, age, gender and race. The creatinine assay has been calibrated to be traceable to IDMS. An eGFR <60 mL/min/1.73m2 for >3 months is consistent with chronic kidney disease. Refer to KDOQI guidelines for clinical interpretation. In patients with unstable renal function, e.g. those with acute kidney injury, the eGFR may not accurately reflect actual GFR. Performed By: #### CBC, CMP #### [facility] [address] [place], [place] [address] NURSING PROG Observed: 05/26/2018 Status: COMPLETED Source: [place] 7:49 PM [facility] REPOSITORY HNO ID: [id number] Author: Annette (Rn) CHERI Rollins Service: (none) Author Type: Registered Nurse Type: Nursing Progress Note Filed: 05/27/2018 5:14 AM Note Text: Nursing Progress Note Patient Name: Maciej Crowder Patient Location: [address]6-1-11 Event(s) / Intervention Note: The patient was observed having the following problems: high rate atrial fib. HR 120-150s and BP 83/54 The time of the event occurred at: shift change 1900. The following intervention(s) were initiated: Dr. Edith Blanc notified at pager [phone] and orders for 2.5 mg of IV metoprolol will be given when BP improves. After the initiated interventions, the following observation(s) were made: patient has no complaints., nothing further noted. Will continue to observe and check with patient. 2034: patient went into Sinus rhythm. HR was 80 and BP was 106/58. Pt was assessed, asymptomatic, and pt has no complaints. I will continue to monitor and observe the patient. IV metoprolol was held due to the rhythm and rate change. LIP is aware. 2316: patient went into high rate atrial fib. HR is 120-150 and BP is 94/51. Pt was assessed, asymptomatic, and pt has no complaints. LIP notified and awaiting further instructions. 2350: patient converted back into Sinus rhythm with a HR of 89 and BP of 94/51. LIP notified. Will continue to observe and monitor pt. 0233: patient converted back into high rate afib with HR of 120-150 and BP of 89/61, pt is asymptomatic. LIP notified and orders of amiodarone infusion given at 0300 over 2 hours instead of the normal 6 hours due to previous history. Will continue to observe and continuously monitor the patient. 0500: patient is in Sinus rhythm with a HR of 86 and BP of 122/57. Amio infusion was stopped. Pt is asymptomatic with no complaints. LIP notified. I will continue to observe and monitor the patient. This note was completed by: ANNETTE ROLLINS RN NURSING PROG Observed: 05/26/2018 Status: COMPLETED Source: [place] 7:[address] [facility] REPOSITORY HNO ID: [id number] Author: Jarod (Rn) CHERI Pederson Service: (none) Author Type: Registered Nurse Type: Nursing Progress Note Filed: 05/26/2018 7:05 PM Note Text: Problem(s) / Intervention(s) PATIENT NAME: Maciej Crowder The patient was observed having high rate atrial fib. HR in the 150's, blood pressure 92/54 (manual). Pt. Asymptomatic. The following intervention(s) were initiated :Kasia Torres [employer] notified. 500cc normal saline bolus ordered and administered and 2.5 mg of IV metoprolol ordered and administered. The following observation(s) were made: patient remains under constant observation. This note was completed by: Jarod Pederson RN ECG COMPLETE W Observed: 05/26/2018 Status: F Source: [place] INTERPRETATION 2:[address] [facility] REPOSITORY NAME : MACIEJ CROWDER PID : [id number] : 1940 Gender : Male Race : ORD : [id number] Procedure Date : May 26 2018 14:05:29 Edit Date : May 27 2018 11:22:39 Diagnosis:NORMAL SINUS RHYTHM POSSIBLE INFERIOR MYOCARDIAL INFARCTION , AGE UNDETERMINED ABNORMAL ECG Confirmed by TIMI HUMPHREY M.D. ([id number]) on 05/27/2018 11:22:27 AM Ventricular Rate : 81 BPM Atrial Rate : 81 BPM P-R Interval : 156 ms QRS Duration : 90 ms Q-T Interval : 382 ms QTC Calculation(Bezet) : 443 ms P Centerpoint : 48 degrees R Centerpoint : 20 degrees T Centerpoint : -3 degrees Test Reason : Location : 361 : J61 11 Overread By : TIMI HUMPHREY M.D. Edited By : TIMI HUMPHREY M.D. Referred By : , Acquired by : KRANTHI CHASE [facility] Observed: 05/26/2018 Status: COMPLETED Source: [place] 11:[address] [facility] REPOSITORY HNO ID: [id number] Author: Isis Martinez) Dusty Service: Cardiovascular Medicine Author Type: Cath Lab Tech Type: Allied Health Filed: 05/26/2018 11:19 AM Note Text: CARDIAC REHABILITATION PHASE I ASSESSMENT PATIENT NAME: Maciej Crowder SERVICE DATE: May 26, 2018 SESSION TIME: 11:00am BP HR SpO2 % Flow/Rate L/min Pain (0-10) Supine N/A N/A N/A N/A N/A N/A Seated (edge of bed > 30 sec) Yes 83/55 76 97% 3L 4 Sit --> Stand (stand unassisted > 30 sec) No 110/55 77 N/A 3L N/A Ambulation (>10? unassisted) No 129/67 82 96% 3L 4 Post N/A N/A N/A N/A N/A N/A Pre-Exercise Assessment 1. Ankle Pumps x 5: Left - Yes Right - Yes 2. Point Pain in Calf: Left - No Right - No 3. Dorsiflex: Left - Yes Right - Yes 4. Overhead Reach x 3: Left - Yes Right - Yes 5. Unstable Sternum: No 6. Shoulder Pain: Left - No Right - No Exercise Distance: ~200 feet Duration: 2-3 minutes Assistance: Standby supervision Device: Walker RECOMMENDATIONS: Ambulate: with supervision Oxygen: with O2 3L Assist Device: yes - walker COMMENTS: Patient was sitting up in the chair upon arrival, willing to ambulate. Patient ambulated steady in the tenorio using the wheeled walker for assistance. Overall tolerated activity well. Instructed on continued increased ambulation as tolerated 4-6 times per day. Reviewed signs and symptoms of exercise intolerance. Darren Lei Pager: [phone] May 26, 2018 URINALYSIS WITH Collected: 05/26/2018 Status: F Source: [facility] 11:[address] [facility] REPOSITORY TYPE CODE TESTS RESULT OUT OF RANGE REFERENCE UNITS LAB UCOL Yellow Color Yellow LAB [facility] Clear Clarity Abnormal Cloudy Alert LAB UGLUC Negative mg/dL Glucose, Urine Negative LAB UBIL Negative Bilirubin, Urine Negative LAB UKET Negative Ketones, Urine Negative LAB USPG 1.005-1.030 Specific [place], Ur 1.023 LAB UHGB Negative Abnormal Hemoglobin/Blood, 1+ Alert Ur LAB UPH 4.5-8.0 pH 5.0 LAB UPROT Negative mg/dL Protein, Abnormal Urine 30 Alert LAB UUROB Normal Urobilinogen Normal LAB UNITR Negative Nitrites Negative LAB ULKEST Negative Leukest Abnormal Trace Alert LAB UCOM Comments SEE COMMENT Result Comment: N/A LAB UMCOM Urine SEE [place] Comment COMMENT Result Comment: N/A LAB UWBC 0-5 /HPF Abnormal Alert WBC 6-10 LAB URBC 0-3 /HPF Abnormal Alert RBC 6-10 LAB UCAST 0 /LPF Abnormal Alert Cast SEE COMMENT Result Comment: 1-3 Hyaline Cast LAB UEPI /HPF Epithelial SEE Cells COMMENT Result Comment: Few Squamous Epithelial Cells Performed By: #### UAWMIC #### [facility] [employer] [address] [place], [place] [address] C DIFFICILE PCR Collected: 05/26/2018 Status: F Source: [place] 11:[address] [facility] REPOSITORY TYPE CODE TESTS RESULT OUT OF REFERENCE UNITS RANGE LAB CDFRES C difficile PCR Negative for C. difficile toxin by PCR Performed By: #### CDPCR #### [facility] [employer] [address] [place], [place] [address] XR ABDOMEN 1V SUPINE Observed: 05/26/2018 Status: F Source: [place] 9:[address] [facility] REPOSITORY * * *Final Report* * * DATE OF EXAM: May 26 2018 9:09AM JIX [id number] - XR ABDOMEN 1V SUPINE / PROCEDURE REASON: Post-operative / post-procedure assessment, symptomatic * * * * Physician Interpretation * * * * ABDOMINAL X-RAY, 1 VIEW. CLINICAL INFORMATION: Postoperative evaluation. CURRENT STUDY: 05/26/2018 09:00. COMPARISON: KUB 05/25/2018, CT 04/15/2018. TECHNIQUE: Supine abdomen, 2 image(s) RESULT: See impression. IMPRESSION: Mediastinal drain partially seen. Persistent small bowel dilation up to 4.5 cm, not significantly changed and likely ileus. Borderline dilated descending colon, unchanged. Cholelithiasis. Multilevel thoracolumbar spine degenerative arthropathy. Atherosclerotic vascular calcifications. Laminating Machine Tender: MILLY Transcribe Date/Time: May 26 2018 9:57A Dictated by : TANVIR ALVARES DO This examination was interpreted and the report reviewed and electronically signed by: TANVIR ALVARES DO on May 26 2018 10:01AM EST [id number] XR CHEST 2V FRONTAL/LAT Observed: 05/26/2018 Status: F Source: [place] 9:[address] [facility] REPOSITORY * * *Final Report* * * DATE OF EXAM: May 26 2018 9:09AM JIX [id number] - XR CHEST 2V FRONTAL/LAT / PROCEDURE REASON: Post surg/post-op management * * * * Physician Interpretation * * * * CHEST RADIOGRAPH (2 VIEW PA and LATERAL) Indication: Post surg/post-op management M: XC2_1 Comparison: Chest radiograph dated 05/25/2018 RESULTS: See impression. IMPRESSION: Lines, tubes, and devices: The patient is status post median sternotomy for aortic valve replacement. Mediastinal drain is noted along the right heart border. Previously seen left thoracostomy tube has been removed. Previously seen right IJ catheter has been removed. Lungs and pleura: The patient is rotated. Left hemidiaphragm is elevated. There are suspected small pleural effusions bilaterally with adjacent lower lung zone opacities, most likely representing atelectasis. No pulmonary edema or new consolidative opacity. No substantial left-sided pneumothorax. There is a questionable small right apical pneumothorax which should be assessed on follow-up. Cardiomediastinal silhouette: Cardiomediastinal silhouette is enlarged and is not well assessed due to patient rotation. Other: The lungs are osteopenic. Height loss of several midthoracic vertebral bodies appears unchanged since 04/15/2018, and are likely chronic. Healed right-sided rib fractures are noted. Laminating Machine Tender: PSCB Transcribe Date/Time: May 26 2018 11:13A Dictated by : CARMENCITA AGOSTO MD This examination was interpreted and the report reviewed and electronically signed by: CARMENCITA AGOSTO MD on May 26 2018 11:16AM EST [id number] PROGRESS Observed: 05/26/2018 Status: COMPLETED Source: [place] 7:[address] [facility] REPOSITORY HNO ID: [id number] Author: Kasia Torres Service: Cardiac Surgery Author Type: Nurse Practitioner Type: Progress Notes Filed: 05/26/2018 5:15 PM Note Text: [facility] CTS POSTOP PROGRESS NOTE Day of Surgery:05/22/2018 S/P SURGERY: Median sternotomy, open heart, aortic valve replacement with 25 CE valve. Coronary artery bypass x3 with ROSA to LAD, reverse vein graft to obtuse marginal circumflex and PDA of the right coronary artery. INTERVAL EVENTS / PERTINENT ROS: Transferred to [facility] on 05/25/18 -PAF overnight, back in NSR. On BB CAD: CABG x3 ASA/BB/statin -FVO: lasix, 4 liters nc, xray small effusions -KUB + ileus, frequent diarrhea, send stool for C diff, clear liquid diet -Disp: from [place], [place]. PT: Home PT. CM following. No dc date yet Rhythm: NSR Intake/Output Summary (Last 24 hours) at 05/26/18 0709 Last data filed at 05/26/18 0300 Gross per 24 hour Intake 360 ml Output 2020 ml Net -1660 ml EKG: most recent image reviewed TELE: most recent recordings reviewed CXR: most recent image reviewed Echocardiogram: most recent report reviewed PHYSICAL EXAM: BP 132/62 Pulse 76 Temp 36.6 ?C (97.8 ?F) (Oral) Resp 18 Ht 166.4 cm (5' 5.5) Wt 75 kg (165 lb 6.4 oz) SpO2 97% BMI 27.11 kg/m? Neuro: AANDO x 3 moves all extremities with no apparent weakness, uses wheeled walker to ambulate CV: no jugular venous distention Heart Exam: RRR without murmur, gallop, or rubs. Resp: clear to auscultation bilaterally and diminished breath sounds to bases Abd: The abdomen is soft, nontender, nondistended; BS normal; no masses or organomegaly noted. Skin: Skin color, texture, turgor normal, no suspicious rashes or lesions Ext: Trace LE edema Surgical incisions: clean, dry and intact; sternum stable with cough right SVG harvest site well approximated and edematous to margins Chest tube: Midline Alejandro drain to bulb suction patent for serous sanguinous drainage Pacer wires: VVI back up at 30 HISTORY, ASSESSMENT AND PLAN: Problem Transition of Care Performed With Sharing of Clinical Summary Indication for Surgery: Severe , CAD Preop LVEF: 45% RVF: Normal Cards: June EKG: NSR Postop LVEF: 50% RVF: Normal Important/Relevant PMH/PSH: mild asthma, diverticulosis. Work accident with rib fractures AND pneumothorax. Family hx of Malignant Hyperthermia. Preoperative Hospital Course: Elective Surgery Airway Difficulty: Grade I - No special instrumentation Pacing Wires: Yes: Atrial and Ventricular: When discontinuing pacing wires: Cut A/Pull V pacing wires Chronological List of Surgeries and Major Events (Diagnosis): (Surgeries in bold characters) 05/22/2018: CABG x3, ROSA-LAD, SVG-OM1, SVG-PDA, AVR # 25 CE; OR course with coagulopathy treated with platelets. Postoperative hypotension requiring norepinephrine infusion AND cardiac insufficieny requiring epinephrine. 05/24/2018 - AF with RVR A/P of Major Active Problems (excluding routine care and common problems): Cardiac: Atrial Fibrillation: Currently in SR. Episode of ANGEL with amiodarone infusion. Rate control with BB. GI: Postoperative Ileus: BM x 4 overnight. Continue bowel regimen. Daily KUB. To Do or to Watch: Transferred to [facility] on 05/25/18 AANDPlan: 05/26/18 -PAF overnight, back in NSR. On BB CAD: CABG x3 ASA/BB/statin -FVO: lasix, 4 liters nc, xray small effusions -KUB + ileus, frequent diarrhea, send stool for C diff, clear liquid diet -Disp: from [place], [place]. PT: Home PT. CM following. No dc date yet Discharge Planning: Anticipated Discharge Date: Unknown Barriers to Discharge: Unknown Care Management Discharge Needs: Coronary Artery Disease Involving [place] Coronary Artery 05/22/2018 - CABG x3, ROSA-LAD, SVG-OM1, SVG-PDA CAD Core Measures: Aspirin: Yes Beta blockers: Yes Statins: Yes Severe Aortic Stenosis History: Severe Assessment: 05/22/2018 - AVR # 25 CE surgical pathology: Aortic valve, excision - Severe calcification and severe fibrosis Plan: ASA Paroxysmal Atrial Fibrillation (Hcc) History: New-onset AF (05/24); holding amiodarone in the setting of junctional bradycardia Assessment: NSR with occasional PAC's Plan: continue BB replace electorlytes VVI back up 30 Ileus (Hcc) History: CVICU: Abdominal distention without pain; KUB with ileus. BM x 4 overnight. Assessment: KUB unchanged, having diarrhea, + bowel sound, denies abdominal pain, abdomen semi firm and distended Plan: Continue bowel regimen and clear liquid diet. Repeat KUB today. Limit opioids. stool for C diff Discharge Planning Issues 78 yr old [employer] male from [place], [place]. CM following. No dc date yet DAILY STEP DOWN CHECKLIST FOR CATHETER RELATED INFECTION PREVENTION CVC, PICC, [place] and/or Permacath present? No Does the patient have a urinary catheter beyond POD 2? No VTE Risk Assessment: Moderate risk VTE Mechanical and/or Pharmacologic Prophylaxis: GCS, Subcutaneous Heparin and SCD Labs and medications reviewed in Epic Case discussed in depth with: CTS SIGNATURE: Kasia Patel APRN.CNP PATIENT NAME: Maciej Crowder DATE: May 26, 2018 TIME: 7:09 AM PAGER/CONTACT #: [id number] ETX#[id number] CBC Collected: 05/26/2018 Status: F Source: [place] 5:45 AM [facility] REPOSITORY TYPE CODE TESTS RESULT OUT OF REFERENCE UNITS RANGE LAB WBC 3.70-11.00 k/uL WBC 9.35 LAB RBC 4.20-6.00 m/uL Low RBC 3.54 LAB HGB 13.0-17.0 g/dL Low Hemoglobin 11.5 LAB HCT 39.0-51.0 % Low Hematocrit 34.0 LAB MCV 80.0-100.0 fL MCV 96.0 LAB MCH 26.0-34.0 pG MCH 32.5 LAB MCHC 30.5-36.0 g/dL MCHC 33.8 LAB RDWCV 11.5-15.0 % RDW-CV 13.8 LAB PLTCT 150-400 k/uL Platelet Count 154 LAB MPV 9.0-12.7 fL MPV 10.2 LAB ABSNUC <0.01 k/uL Absolute nRBC <0.01 Performed By: #### CBC, CMP #### [facility] [address] [place], [place] [address] COMP METABOLIC PANEL Collected: 05/26/2018 Status: F Source: [place] 5:[address] [facility] REPOSITORY TYPE CODE TESTS RESULT OUT OF REFERENCE UNITS RANGE LAB TP 6.3-8.0 g/dL Protein, Total 6.8 LAB ALB 3.9-4.9 g/dL Low Albumin 3.5 LAB CA 8.5-10.2 mg/dL Calcium, Total 9.0 LAB TBIL 0.2-1.3 mg/dL Bilirubin, Total 0.6 LAB ALKP 38-113 U/L Alkaline Phosphatase 54 LAB AST 14-40 U/L AST 35 LAB GLU 74-99 mg/dL Glucose High 119 Result Comment: The [place] [employer] (ADA) provides guidance for cutoff values for fasting glucose and random glucose. The ADA defines fasting as no caloric intake for at least 8 hours. Fas ting plasma glucose results between 100 to 125 mg/dL indicate increased risk for diabetes (prediabetes). Fasting plasma glucose results greater than or equal to 126 mg/dL meet the criteria for diagnosis of diabetes. In the absence of unequivocal hyperglycemia, results should be confirmed by repeat testing. In a patient with classic symptoms of hyperglycemia or hyperglycemic crisis, random plasma glucose results greater than or equal to 200 mg/dL meet the criteria for diagnosis of diabetes. Reference: Standards of Medical Care in Diabetes 2016, [place] [employer]. Diabetes Care. 2016.39(Suppl 1). LAB BUN 9-24 mg/dL BUN High 36 LAB CRET 0.73-1.22 mg/dL Creatinine 1.14 LAB NA 136-144 mmol/L Low Sodium 134 LAB K 3.7-5.1 mmol/L Potassium 4.8 LAB CL 97-105 mmol/L Low Chloride 95 LAB CO2 22-30 mmol/L CO2 22 LAB AGAP 9-18 mmol/L Anion Gap 17 LAB ALT 10-54 U/L ALT 32 LAB GFRAA eGFR- Amer. >60 LAB GFRNAA . eGFR-All Other Races >60 Result Comment: eGFR (Estimated GFR) Units of measure: mL/min/1.73 meters squared eGFR is derived from the reexpressed MDRD Study equation using the following parameters: serum creatinine, age, gender and race. The creatinine assay has been calibrated to be traceable to IDMS. An eGFR <60 mL/min/1.73m2 for >3 months is consistent with chronic kidney disease. Refer to KDOQI guidelines for clinical interpretation. In patients with unstable renal function, e.g. those with acute kidney injury, the eGFR may not accurately reflect actual GFR. Performed By: #### CBC, CMP #### [facility] [address] [place], [place] [address] MAGNESIUM Collected: 05/26/2018 Status: F Source: [place] 5:[address] [facility] REPOSITORY TYPE CODE TESTS RESULT OUT OF REFERENCE UNITS RANGE LAB MG 1.7-2.3 mg/dL High Magnesium 3.1 Performed By: #### MG1 #### [facility] [address] [place], [place] [id number] NURSING PROG Observed: 05/25/2018 Status: COMPLETED Source: [place] 10:[address] [facility] REPOSITORY HNO ID: [id number] Author: Annette DawsonRn) CHERI Rollins Service: (none) Author Type: Registered Nurse Type: Nursing Progress Note Filed: 05/26/2018 1:23 AM Note Text: Nursing Progress Note Patient Name: Maciej Crowder Patient Location: [address]6-1-11 Event(s) / Intervention Note: The patient was observed having the following problems: HR of 120-150, BP of 117/71, and patient's rhythm is in atrial fibrillation. Pt was assessed and he is asymptomatic. The time of the event occurred at: 2223 The following intervention(s) were initiated: [place] [id number], Metoprolol PO medication and IV magnesium sulfate medication given After the initiated interventions, the following observation(s) were made: patient has no complaints and nothing further noted. Will continue to observe and check with patient. This note was completed by: ANNETTE ROLLINS RN NURSING PROG Observed: 05/25/2018 Status: COMPLETED Source: [place] 2:[address] [facility] REPOSITORY HNO ID: [id number] Author: Jarod DawsonRn) Bg, RN Service: (none) Author Type: Registered Nurse Type: Nursing Progress Note Filed: 05/25/2018 3:38 PM Note Text: Nursing Progress Note Patient Name: Maciej Crowder Patient Location: J064 010/J6-4-10 Transfer Note: Patient transferred into room/unit J61/11 in stable condition. Actions taken: Patient oriented to room, floor, and call light. My Safety Plan initiated and skin check performed. This note was completed by: Jarod Pederson RN GASBob + ALL Collected: 05/25/2018 Status: F Source: [place] FOR 1:16 PM [facility] USE ONLY REPOSITORY TYPE CODE TESTS RESULT OUT OF REFERENCE UNITS RANGE LAB PH 7.35-7.45 pH High 7.49 LAB PCO2 34-46 mm Hg pCO2 Low 33 LAB PO2 85-95 mm Hg pO2 94 LAB BE mmol/L Base Excess 2 LAB HCO3 22-26 mmol/L Bicarbonate 25 LAB CO2CT 22.0-28.0 mmol/L CO2 Content 26 LAB O2HB 95-98 % Oxyhemoglobin, Art. 96 LAB COHB 0-5.0 % Carboxyhemoglobin, 1.1 Art LAB MHGB 0.4-1.5 % Methemoglobin 0.4 LAB TEMP C Temperature, Body 37.0 LAB PHTC 7.35-7.45 pH, Temp High Corrected 7.49 LAB PCO2T 34-46 mm Hg pCO2, Temp Low Correct 33 LAB PO2T mm Hg pO2, Temp Corrected 94 LAB NAB 135-146 mmol/L Sodium,Whole Low Bld 134 LAB KWB 3.5-5.0 mmol/L Potassium, Whole Bld 4.1 LAB HGBB 13.0-17.0 g/dL Low Hemoglobin,Total,A 10.4 CL LAB HCTB 39.0-51.0 % Hematocrit, Low ACL 32 LAB IC 1.08-1.30 mmol/L Calcium, Ion, WB 1.15 LAB GLB 60-105 mg/dL Glucose,Whole High Bld 110 LAB LACT 0.5-2.2 mmol/L Lactate 1.1 LAB ACBDTE Notify Date, Art [id number] LAB ACBTME Notify Time, Art Performed By: #### ALLBG #### [facility] [address] [place], [place] [address] XR ABDOMEN 1V SUPINE Observed: 05/25/2018 Status: F Source: [place] 10:[address] [facility] REPOSITORY * * *Final Report* * * DATE OF EXAM: May 25 2018 10:50AM JIX [id number] - XR ABDOMEN 1V SUPINE / PROCEDURE REASON: Ileus * * * * Physician Interpretation * * * * KUB PORTABLE HISTORY: Ileus TECHNIQUE: Single View, Supine Abdomen; Number of Images: 2 COMPARISON: 05/24/2018 taken at 1026 RESULT: Again present is mild gaseous dilation of the stomach. There are now moderately dilated gas-filled loops of small bowel more dilated when compared to prior exam. There are new, dilated gas-filled loops of LEFT-sided colon. There is a RIGHT-sided chest tube. IMPRESSION: WORSENING ILEUS Laminating Machine Tender[facility] Transcribe Date/Time: May 25 2018 11:07A Dictated by : DOUGLAS ROSARIO MD This examination was interpreted and the report reviewed and electronically signed by: DOUGLAS ROSARIO MD on May 25 2018 11:08AM EST [id number] PROGRESS Observed: 05/25/2018 Status: COMPLETED Source: [place] 9:[address] [facility] REPOSITORY HNO ID: [id number] Author: Anitra Darnell Service: Critical Care Author Type: Nurse Practitioner Type: Progress Notes Filed: 05/25/2018 9:46 AM Note Text: [facility] CVICU Note Name: Maciej Crowder Coordination of Care Note: Indication for Surgery: Severe , CAD Preop LVEF: 45% RVF: Normal Postop LVEF: 50% RVF: Normal Important/Relevant PMH/PSH: mild asthma, diverticulosis. Work accident with rib fractures AND pneumothorax. Family hx of Malignant Hyperthermia. Preoperative Hospital Course: Elective Surgery Airway Difficulty: Grade I - No special instrumentation Pacing Wires: Yes: Atrial and Ventricular: When discontinuing pacing wires: Cut A/Pull V pacing wires Chronological List of Surgeries and Major Events (Diagnosis): (Surgeries in bold characters) 05/22/2018: CABG x3, ROSA-LAD, SVG-OM1, SVG-PDA, AVR # 25 CE; OR course with coagulopathy treated with platelets. Postoperative hypotension requiring norepinephrine infusion AND cardiac insufficieny requiring epinephrine. 05/24/2018 - AF with RVR A/P of Major Active Problems (excluding routine care and common problems): Cardiac: Atrial Fibrillation: Currently in SR. Episode of ANGEL with amiodarone infusion. Rate control with BB. GI: Postoperative Ileus: BM x 4 overnight. Continue bowel regimen. Daily KUB. To Do or to Watch: MS garcía to bulb Discharge Planning: Anticipated Discharge Date: Unknown Barriers to Discharge: Unknown Care Management Discharge Needs: Other Problems I Reviewed and/or Managed During This Encounter: Problem Coronary Artery Disease Involving [place] Coronary Artery 05/22/2018 - CABG x3, ROSA-LAD, SVG-OM1, SVG-PDA CAD Core Measures: Aspirin: Yes Beta blockers: Yes Statins: Reassess for Best Practices prior to hospital discharge Severe Aortic Stenosis Severe . 05/22/2018 - AVR # 25 CE A/P: ASA Atelectasis A/P: CXR with postoperative atelectasis. Currently on 4L NC. OOB, PEP and wean O2 as tolerated. Moderate Persistent Asthma Without Complication Seeing Dr. Mcclure, 09/29/14 Spirometry: [id number], 1.45 L/s, 65% pred. +41% post BD 08/09/15 Gabe: 109 (normal < 25). Home medication: Advair, albuterol A/P: Continue budesonide and albuterol inhalers. Paroxysmal Atrial Fibrillation (Hcc) A/P: New-onset AF (05/24); holding amiodarone in the setting of junctional bradycardia. Rate control with beta-blockade. Tachy-Huang Syndrome (Hcc) Junctional immediately postoperatively with AF RVR 05/24; converted to junctional huang 40s. Amiodarone discontinued. A/P: Currently in SR. Continue to back-up VVI 30. Acute On Chronic Systolic Heart Failure (Hcc) Preop EF 45%, post 50% A/P: Hemodynamically stable off inotropic support. Volume control with furosemide. Beta-blockade. Reassess for best practices prior to discharge. Post-Operative Pain A/P: Avoid opioids in the setting of ileus; continue supplementation with Tylenol AND Lidoderm patches. Goal pain score <4. Hypervolemia A/P: Net negative 1.5L x 24 hours. Continue diuresis. Ileus (Hcc) A/P:Abdominal distention without pain; KUB with ileus. BM x 4 overnight. Continue bowel regimen and clear liquid diet. Repeat KUB today. Limit opioids. PHYSICAL EXAM: Neuro: Awake, Follows commands, Alert and oriented x 3 and BLAN[place] Cardiovascular: Rhythm: regular rate and rhythm and Rate:normal sinus rhythm Pulmonary: Clear to auscultation and Breath sounds equal Ventilator: N/A, patient is extubated CXR Findings: Atelectasis Bilateral, Increased Vascular Markings Bilateral and CXR personally viewed and interpreted by ICU staff Nurse Practitioner Gastrointestinal: Abdominal: Soft, Non-tender, Distended and Bowel sounds yes DAILY CVICU CHECKLIST VTE Prophylaxis: Pharmacologic Yes VTE Prophylaxis: Mechanical: Yes Line infection prevention: Can CVC, PAC or arterial line be removed: No Continued need for urinary catheter: Yes - clinical indication: Patient post major surgery requiring fluid balance and input and output measurement. Restraints needed: No SIGNATURE: Anitra Darnell APRN.CNP DATE of SERVICE: 05/25/2018 TIME of SERVICE: 9:38 AM GASA + ALL Collected: 05/25/2018 Status: F Source: [place] FOR 9:17 AM [facility] USE ONLY REPOSITORY TYPE CODE TESTS RESULT OUT OF REFERENCE UNITS RANGE LAB PH 7.35-7.45 pH 7.44 LAB PCO2 34-46 mm Hg pCO2 35 LAB PO2 85-95 mm Hg pO2 High 145 LAB BE mmol/L Base Excess 0 LAB HCO3 22-26 mmol/L Bicarbonate 23 LAB CO2CT 22.0-28.0 mmol/L CO2 Content 24 LAB O2HB 95-98 % Oxyhemoglobin, Art. 98 LAB COHB 0-5.0 % Carboxyhemoglobin,A 0.9 rt LAB MHGB 0.4-1.5 % Methemoglobin 0.6 LAB TEMP C Temperature, Body 37.0 LAB PHTC 7.35-7.45 pH, Temp Corrected 7.44 LAB PCO2T 34-46 mm Hg pCO2, Temp Correct 35 LAB PO2T mm Hg pO2, Temp Corrected 145 LAB NAB 135-146 mmol/L Sodium,Whole Bld Low 132 LAB KWB 3.5-5.0 mmol/L Potassium, Whole Bld 4.5 LAB HGBB 13.0-17.0 g/dL Low Hemoglobin,Total,AC 10.5 L LAB HCTB 39.0-51.0 % Hematocrit, ACL Low 33 LAB IC 1.08-1.30 mmol/L Calcium, Ion, WB 1.14 LAB GLB 60-105 mg/dL Glucose,Whole Bld High 133 LAB LACT 0.5-2.2 mmol/L Lactate 1.6 Performed By: #### ALLBG #### [facility] [address] [place], [place] [address] GASA + ALL Collected: 05/25/2018 Status: F Source: [place] FOR 5:[address] [facility] USE ONLY REPOSITORY TYPE CODE TESTS RESULT OUT OF REFERENCE UNITS RANGE LAB PH 7.35-7.45 pH High 7.46 LAB PCO2 34-46 mm Hg pCO2 37 LAB PO2 85-95 mm Hg pO2 Low 80 LAB BE mmol/L Base Excess 2 LAB HCO3 22-26 mmol/L Bicarbonate 26 LAB CO2CT 22.0-28.0 mmol/L CO2 Content 27 LAB O2HB 95-98 % Oxyhemoglobin, Art. 95 LAB COHB 0-5.0 % Carboxyhemoglobin,A 0.4 rt LAB MHGB 0.4-1.5 % Methemoglobin 0.5 LAB TEMP C Temperature, Body 37.0 LAB PHTC 7.35-7.45 pH, Temp High Corrected 7.46 LAB PCO2T 34-46 mm Hg pCO2, Temp Correct 37 LAB PO2T mm Hg pO2, Temp Corrected 80 LAB NAB 135-146 mmol/L Sodium,Whole Bld 135 LAB KWB 3.5-5.0 mmol/L Potassium, Whole Bld 4.5 LAB HGBB 13.0-17.0 g/dL Low Hemoglobin,Total,AC 10.6 L LAB HCTB 39.0-51.0 % Hematocrit, ACL Low 33 LAB IC 1.08-1.30 mmol/L Calcium, Ion, WB 1.17 LAB GLB 60-105 mg/dL Glucose,Whole Bld High 120 LAB LACT 0.5-2.2 mmol/L Lactate 1.1 Performed By: #### ALLBG #### [facility] [address] [place], [place] [address] GASA + ALL Collected: 05/25/2018 Status: F Source: [place] FOR 3:[address] [facility] USE ONLY REPOSITORY TYPE CODE TESTS RESULT OUT OF REFERENCE UNITS RANGE LAB PH 7.35-7.45 pH High 7.46 LAB PCO2 34-46 mm Hg pCO2 35 LAB PO2 85-95 mm Hg pO2 High 97 LAB BE mmol/L Base Excess 1 LAB HCO3 22-26 mmol/L Bicarbonate 24 LAB CO2CT 22.0-28.0 mmol/L CO2 Content 25 LAB O2HB 95-98 % Oxyhemoglobin, Art. 97 LAB COHB 0-5.0 % Carboxyhemoglobin,A 0.5 rt LAB MHGB 0.4-1.5 % Methemoglobin Low 0.1 LAB TEMP C Temperature, Body 37.0 LAB PHTC 7.35-7.45 pH, Temp High Corrected 7.46 LAB PCO2T 34-46 mm Hg pCO2, Temp Correct 35 LAB PO2T mm Hg pO2, Temp Corrected 97 LAB NAB 135-146 mmol/L Sodium,Whole Bld Low 134 LAB KWB 3.5-5.0 mmol/L Potassium, Whole Bld 3.8 LAB HGBB 13.0-17.0 g/dL Low Hemoglobin,Total,AC 10.2 L LAB HCTB 39.0-51.0 % Hematocrit, ACL Low 31 LAB IC 1.08-1.30 mmol/L Calcium, Ion, WB 1.08 LAB GLB 60-105 mg/dL Glucose,Whole Bld High 122 LAB LACT 0.5-2.2 mmol/L Lactate 1.1 Performed By: #### ALLBG #### [facility] [address] [place], [place] [address] XR CHEST 1V FRONTAL Observed: 05/25/2018 Status: F Source: [place] 12:[address] [facility] REPOSITORY * * *Final Report* * * DATE OF EXAM: May 25 2018 12:47AM JIX [id number] - XR CHEST 1V FRONTAL / PROCEDURE REASON: Post-operative / post-procedure assessment, asymptomatic * * * * Physician Interpretation * * * * EXAMINATION: CHEST RADIOGRAPH (PORTABLE SINGLE VIEW AP) Exam Date/Time: 05/25/2018 12:47 AM Clinical History: Post-operative / post-procedure assessment, asymptomatic, MQ: XCPMC_5 Comparison: 1 day prior RESULT: See impression. IMPRESSION: Lines, tubes, and devices: Right IJ venous catheter, left chest tube and curved mediastinal/pericardial drain unchanged in positions. Lungs and pleura: Mild low lung volumes. Perihilar reticular opacities in both lungs may represent interstitial edema versus nonspecific bronchial wall thickening. Subsegmental atelectasis is noted in both lung bases, with small pleural effusions. No definite pneumothorax. Cardiomediastinal silhouette: Stable enlargement of the cardiomediastinal silhouette. Stable prosthetic aortic valve. Other: Median sternotomy . Laminating Machine Tender: MILLY Transcribe Date/Time: May 25 2018 11:59A Dictated by : LIO KENDRICK MD This examination was interpreted and the report reviewed and electronically signed by: LIO KENDRICK MD on May 25 2018 11:59AM EST [id number] GASA + ALL Collected: 05/25/2018 Status: F Source: [place] FOR 12:22 AM [facility] USE ONLY REPOSITORY TYPE CODE TESTS RESULT OUT OF REFERENCE UNITS RANGE LAB PH 7.35-7.45 pH 7.45 LAB PCO2 34-46 mm Hg pCO2 36 LAB PO2 85-95 mm Hg pO2 Low 79 LAB BE mmol/L Base Excess 2 LAB HCO3 22-26 mmol/L Bicarbonate 25 LAB CO2CT 22.0-28.0 mmol/L CO2 Content 26 LAB O2HB 95-98 % Oxyhemoglobin, Art. 95 LAB COHB 0-5.0 % Carboxyhemoglobin,A 1.5 rt LAB MHGB 0.4-1.5 % Methemoglobin Low 0.3 LAB TEMP C Temperature, Body 37.0 LAB PHTC 7.35-7.45 pH, Temp Corrected 7.45 LAB PCO2T 34-46 mm Hg pCO2, Temp Correct 36 LAB PO2T mm Hg pO2, Temp Corrected 79 LAB NAB 135-146 mmol/L Sodium,Whole Bld 135 LAB KWB 3.5-5.0 mmol/L Potassium, Whole Bld 3.8 LAB HGBB 13.0-17.0 g/dL Low Hemoglobin,Total,AC 10.1 L LAB HCTB 39.0-51.0 % Hematocrit, ACL Low 31 LAB IC 1.08-1.30 mmol/L Calcium, Ion, WB 1.14 LAB GLB 60-105 mg/dL Glucose,Whole Bld High 120 LAB LACT 0.5-2.2 mmol/L Lactate 0.8 Performed By: #### ALLBG #### [facility] [address] [place], [place] [address] CBC Collected: 05/25/2018 Status: F Source: [place] 12:[address] [facility] REPOSITORY TYPE CODE TESTS RESULT OUT OF REFERENCE UNITS RANGE LAB WBC 3.70-11.00 k/uL WBC 8.57 LAB RBC 4.20-6.00 m/uL Low RBC 3.07 LAB HGB 13.0-17.0 g/dL Low Hemoglobin 9.8 LAB HCT 39.0-51.0 % Low Hematocrit 28.2 LAB MCV 80.0-100.0 fL MCV 91.9 LAB MCH 26.0-34.0 pG MCH 31.9 LAB MCHC 30.5-36.0 g/dL MCHC 34.8 LAB RDWCV 11.5-15.0 % RDW-CV 14.2 LAB PLTCT 150-400 k/uL Low Platelet Count 102 LAB MPV 9.0-12.7 fL MPV 10.1 LAB ABSNUC <0.01 k/uL Absolute nRBC <0.01 Performed By: #### CBC, CMP #### [facility] [address] [place], [place] [address] COMP METABOLIC PANEL Collected: 05/25/2018 Status: F Source: [place] 12:[address] [facility] REPOSITORY TYPE CODE TESTS RESULT OUT OF REFERENCE UNITS RANGE LAB TP 6.3-8.0 g/dL Low Protein, Total 6.2 LAB ALB 3.9-4.9 g/dL Low Albumin 3.6 LAB CA 8.5-10.2 mg/dL Low Calcium, Total 8.3 LAB TBIL 0.2-1.3 mg/dL Bilirubin, Total 0.4 LAB ALKP 38-113 U/L Alkaline Phosphatase 46 LAB AST 14-40 U/L AST 38 LAB GLU 74-99 mg/dL Glucose High 123 Result Comment: The [place] [employer] (ADA) provides guidance for cutoff values for fasting glucose and random glucose. The ADA defines fasting as no caloric intake for at least 8 hours. Fas ting plasma glucose results between 100 to 125 mg/dL indicate increased risk for diabetes (prediabetes). Fasting plasma glucose results greater than or equal to 126 mg/dL meet the criteria for diagnosis of diabetes. In the absence of unequivocal hyperglycemia, results should be confirmed by repeat testing. In a patient with classic symptoms of hyperglycemia or hyperglycemic crisis, random plasma glucose results greater than or equal to 200 mg/dL meet the criteria for diagnosis of diabetes. Reference: Standards of Medical Care in Diabetes 2016, [place] [employer]. Diabetes Care. 2016.39(Suppl 1). LAB BUN 9-24 mg/dL BUN High 31 LAB CRET 0.73-1.22 mg/dL Creatinine 1.12 LAB NA 136-144 mmol/L Sodium 137 LAB K 3.7-5.1 mmol/L Potassium 4.3 LAB CL 97-105 mmol/L Chloride 97 LAB CO2 22-30 mmol/L CO2 25 LAB AGAP 9-18 mmol/L Anion Gap 15 LAB ALT 10-54 U/L ALT 27 LAB GFRAA eGFR- Amer. >60 LAB GFRNAA . eGFR-All Other Races >60 Result Comment: eGFR (Estimated GFR) Units of measure: mL/min/1.73 meters squared eGFR is derived from the reexpressed MDRD Study equation using the following parameters: serum creatinine, age, gender and race. The creatinine assay has been calibrated to be traceable to IDMS. An eGFR <60 mL/min/1.73m2 for >3 months is consistent with chronic kidney disease. Refer to KDOQI guidelines for clinical interpretation. In patients with unstable renal function, e.g. those with acute kidney injury, the eGFR may not accurately reflect actual GFR. Performed By: #### CBC, CMP #### [facility] [address] [place], [place] [address] GASA + ALL Collected: 05/24/2018 Status: F Source: [place] FOR 8:00 PM [facility] USE ONLY REPOSITORY TYPE CODE TESTS RESULT OUT OF REFERENCE UNITS RANGE LAB PH 7.35-7.45 pH 7.45 LAB PCO2 34-46 mm Hg pCO2 37 LAB PO2 85-95 mm Hg pO2 85 LAB BE mmol/L Base Excess 2 LAB HCO3 22-26 mmol/L Bicarbonate 25 LAB CO2CT 22.0-28.0 mmol/L CO2 Content 26 LAB O2HB 95-98 % Oxyhemoglobin, Art. 95 LAB COHB 0-5.0 % Carboxyhemoglobin,A 1.4 rt LAB MHGB 0.4-1.5 % Methemoglobin Low 0.3 LAB TEMP C Temperature, Body 37.0 LAB PHTC 7.35-7.45 pH, Temp Corrected 7.45 LAB PCO2T 34-46 mm Hg pCO2, Temp Correct 37 LAB PO2T mm Hg pO2, Temp Corrected 85 LAB NAB 135-146 mmol/L Sodium,Whole Bld Low 133 LAB KWB 3.5-5.0 mmol/L Potassium, Whole Bld 4.2 LAB HGBB 13.0-17.0 g/dL Low Hemoglobin,Total,AC 10.2 L LAB HCTB 39.0-51.0 % Hematocrit, ACL Low 31 LAB IC 1.08-1.30 mmol/L Calcium, Ion, WB 1.18 LAB GLB 60-105 mg/dL Glucose,Whole Bld High 138 LAB LACT 0.5-2.2 mmol/L Lactate 0.9 Performed By: #### ALLBG #### [facility] [address] [place], [place] [address] GASA + ALL Collected: 05/24/2018 Status: F Source: [place] FOR 5:34 PM [facility] USE ONLY REPOSITORY TYPE CODE TESTS RESULT OUT OF REFERENCE UNITS RANGE LAB PH 7.35-7.45 pH 7.43 LAB PCO2 34-46 mm Hg pCO2 38 LAB PO2 85-95 mm Hg pO2 Low 76 LAB BE mmol/L Base Excess 1 LAB HCO3 22-26 mmol/L Bicarbonate 25 LAB CO2CT 22.0-28.0 mmol/L CO2 Content 26 LAB O2HB 95-98 % Oxyhemoglobin, Low Art. 94 LAB COHB 0-5.0 % Carboxyhemoglobin,A 1.5 rt LAB MHGB 0.4-1.5 % Methemoglobin 0.6 LAB TEMP C Temperature, Body 37.0 LAB PHTC 7.35-7.45 pH, Temp Corrected 7.43 LAB PCO2T 34-46 mm Hg pCO2, Temp Correct 38 LAB PO2T mm Hg pO2, Temp Corrected 76 LAB NAB 135-146 mmol/L Sodium,Whole Bld Low 132 LAB KWB 3.5-5.0 mmol/L Potassium, Whole Bld 4.2 LAB HGBB 13.0-17.0 g/dL Low Hemoglobin,Total,AC 10.3 L LAB HCTB 39.0-51.0 % Hematocrit, ACL Low 32 LAB IC 1.08-1.30 mmol/L Calcium, Ion, WB 1.15 LAB GLB 60-105 mg/dL Glucose,Whole Bld High 126 LAB LACT 0.5-2.2 mmol/L Lactate 1.2 Performed By: #### ALLBG #### [facility] [address] [place], [place] [address] GASA + ALL Collected: 05/24/2018 Status: F Source: [place] FOR 4:[address] [facility] USE ONLY REPOSITORY TYPE CODE TESTS RESULT OUT OF REFERENCE UNITS RANGE LAB PH 7.35-7.45 pH 7.43 LAB PCO2 34-46 mm Hg pCO2 38 LAB PO2 85-95 mm Hg pO2 High 123 LAB BE mmol/L Base Excess 1 LAB HCO3 22-26 mmol/L Bicarbonate 25 LAB CO2CT 22.0-28.0 mmol/L CO2 Content 26 LAB O2HB 95-98 % Oxyhemoglobin, Art. 97 LAB COHB 0-5.0 % Carboxyhemoglobin,A 1.9 rt LAB MHGB 0.4-1.5 % Methemoglobin 0.5 LAB TEMP C Temperature, Body 37.0 LAB PHTC 7.35-7.45 pH, Temp Corrected 7.43 LAB PCO2T 34-46 mm Hg pCO2, Temp Correct 38 LAB PO2T mm Hg pO2, Temp Corrected 123 LAB NAB 135-146 mmol/L Sodium,Whole Bld Low 132 LAB KWB 3.5-5.0 mmol/L Potassium, Whole Bld 4.3 LAB HGBB 13.0-17.0 g/dL Low Hemoglobin,Total,AC 10.2 L LAB HCTB 39.0-51.0 % Hematocrit, ACL Low 31 LAB IC 1.08-1.30 mmol/L Calcium, Ion, WB 1.15 LAB GLB 60-105 mg/dL Glucose,Whole Bld High 122 LAB LACT 0.5-2.2 mmol/L Lactate 1.2 Performed By: #### ALLBG #### [facility] [address] [place], [place] [address] GASA + ALL Collected: 05/24/2018 Status: F Source: [place] FOR 2:[address] [facility] USE ONLY REPOSITORY TYPE CODE TESTS RESULT OUT OF REFERENCE UNITS RANGE LAB PH 7.35-7.45 pH 7.43 LAB PCO2 34-46 mm Hg pCO2 36 LAB PO2 85-95 mm Hg pO2 92 LAB BE mmol/L Base Excess 0 LAB HCO3 22-26 mmol/L Bicarbonate 24 LAB CO2CT 22.0-28.0 mmol/L CO2 Content 25 LAB O2HB 95-98 % Oxyhemoglobin, Art. 95 LAB COHB 0-5.0 % Carboxyhemoglobin, 1.7 Art LAB MHGB 0.4-1.5 % Methemoglobin 0.6 LAB TEMP C Temperature, Body 37.0 LAB PHTC 7.35-7.45 pH, Temp Corrected 7.43 LAB PCO2T 34-46 mm Hg pCO2, Temp Correct 36 LAB PO2T mm Hg pO2, Temp Corrected 92 LAB NAB 135-146 mmol/L Sodium,Whole Low Bld 131 LAB KWB 3.5-5.0 mmol/L Potassium, Whole Bld 4.0 LAB HGBB 13.0-17.0 g/dL Low Hemoglobin,Total,A 10.3 CL LAB HCTB 39.0-51.0 % Hematocrit, Low ACL 32 LAB IC 1.08-1.30 mmol/L Calcium, Ion, WB 1.10 LAB GLB 60-105 mg/dL Glucose,Whole High Bld 128 LAB LACT 0.5-2.2 mmol/L Lactate 1.0 LAB ACBDTE Notify Date, Art [id number] LAB ACBTME Notify Time, Art Performed By: #### ALLBG #### [facility] [address] [place], [place] [address] PROGRESS Observed: 05/24/2018 Status: COMPLETED Source: [place] 1:24 PM [facility] REPOSITORY HNO ID: [id number] Author: Princess Villatoro ([facility]) [place] Service: Critical Care Author Type: Nurse Practitioner Type: Progress Notes Filed: 05/24/2018 1:30 PM Note Text: [facility] Note Name: Maciej Crowder Coordination of Care Note: Indication for Surgery: Severe , CAD Preop LVEF: 45% RVF: Normal Postop LVEF: 50% RVF: Normal Important/Relevant PMH/PSH: mild asthma, diverticulosis. Work accident with rib fractures AND pneumothorax. Family hx of Malignant Hyperthermia. Preoperative Hospital Course: Elective Surgery Airway Difficulty: Grade I - No special instrumentation Pacing Wires: Yes: Atrial and Ventricular: When discontinuing pacing wires: Cut A/Pull V pacing wires Chronological List of Surgeries and Major Events (Diagnosis): (Surgeries in bold characters) 05/22/2018: CABG x3, ROSA-LAD, SVG-OM1, SVG-PDA, AVR # 25 CE; OR course with coagulopathy treated with platelets. Postoperative hypotension requiring norepinephrine infusion AND cardiac insufficieny requiring epinephrine. 05/24/2018 - onset ~7am; AF with RVR A/P of Major Active Problems (excluding routine care and common problems): Cardiac: Tachy-huang - converted to Junctional bradycardia 40s; amio stopped. Apacing for BP support Pulm: Resp. Insufficiency - BPH, diurese Heme: Blood loss anemia - transfuse. Thrombocytopenia - trend GI: abdominal distention, KUB with ileus; bowel regimen. To Do or to Watch: MS garcía to bulb Discharge Planning: Anticipated Discharge Date: Unknown Barriers to Discharge: Unknown Care Management Discharge Needs: Other Problems I Reviewed and/or Managed During This Encounter: Problem Coronary Artery Disease Involving [place] Coronary Artery 05/22/2018 - CABG x3, ROSA-LAD, SVG-OM1, SVG-PDA CAD Core Measures: Aspirin: Yes Beta blockers: No - due to junctional bradycardia Statins: Reassess for Best Practices prior to hospital discharge Severe Aortic Stenosis Severe . 05/22/2018 - AVR # 25 CE A/p - ASA Moderate Persistent Asthma Without Complication Seeing Dr. Mcclure, 09/29/14 Spirometry: [id number], 1.45 L/s, 65% pred. +41% post BD 08/09/15 Gabe: 109 (normal < 25). Home medication: Advair, albuterol A/p - continue budesonide, albuterol inhalers Tachy-Huang Syndrome (Hcc) A/p - junctional out of OR with AF RVR 05/24; converted to junctional huang 40s. Stop amio. Currently pacing for HD support. Acute On Chronic Systolic Heart Failure (Hcc) Preop EF 45%, post 50% A/p - required Epi post CPB; weaned for CI >2.3. Volume control with furosemide. Post-Operative Pain A/p -stop opioids d/t ileus; 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 Goal pain score <4. Ileus (Hcc) A/p - abdominal distention without pain; KUB with ileus. Bowel regimen. Limit opioids. Acute Blood Loss Anemia A/p - H/H 8.01/20 - symptomatic this AM while AF with RVR, transfused one unit PRBCs. Some dilutional component, continue diuresis. PHYSICAL EXAM: Neuro: Awake, Follows commands, Alert and oriented x 3 and BLANCO Cardiovascular: Rhythm: regular rate and rhythm and Rate:junctional rhythm / junctional tachycardia, paced Pulmonary: Clear to auscultation and Breath sounds equal Ventilator: N/A, patient is extubated CXR Findings: Atelectasis Bilateral, Increased Vascular Markings Bilateral, Pleural effusion Bilateral and CXR personally viewed and interpreted by ICU staff Nurse Practitioner Gastrointestinal: Abdominal: Soft, distended, non tender DAILY CVICU CHECKLIST VTE Prophylaxis: Pharmacologic Yes VTE Prophylaxis: Mechanical: Yes Line infection prevention: Can CVC, PAC or arterial line be removed: No Continued need for urinary catheter: Yes - clinical indication: Patient post major surgery requiring fluid balance and input and output measurement. Restraints needed: No This patient has a high probability of sudden, clinically significant deterioration, which requires the highest level of preparedness to intervene urgently. I participated in the decision making and personally managed or directed the management of the following life and organ supporting interventions that required my frequent assessment to treat or prevent imminent deterioration of: Problem Coronary Artery Disease Involving [place] Coronary Artery Severe Aortic Stenosis Moderate Persistent Asthma Without Complication Tachy-Huang Syndrome (Hcc) Acute On Chronic Systolic Heart Failure (Hcc) Post-Operative Pain Ileus (Hcc) Acute Blood Loss Anemia Postprocedural Hypotension (Resolved) Stress Hyperglycemia (Resolved) I personally spent 46 minutes of critical care time treating the patient. Time devoted to any procedures I billed separately is not included. SIGNATURE: Princess Bañuelos APRN.CNP DATE of SERVICE: 05/24/2018 TIME of SERVICE: 1:24 PM GASA + ALL Collected: 05/24/2018 Status: F Source: [facility] 12:10 PM [facility] USE ONLY REPOSITORY TYPE CODE TESTS RESULT OUT OF REFERENCE UNITS RANGE LAB PH 7.35-7.45 pH 7.41 LAB PCO2 34-46 mm Hg pCO2 40 LAB PO2 85-95 mm Hg pO2 High 105 LAB BE mmol/L Base Excess 1 LAB HCO3 22-26 mmol/L Bicarbonate 25 LAB CO2CT 22.0-28.0 mmol/L CO2 Content 26 LAB O2HB 95-98 % Oxyhemoglobin, Art. 96 LAB COHB 0-5.0 % Carboxyhemoglobin, 1.6 Art LAB MHGB 0.4-1.5 % Methemoglobin Low 0.1 LAB TEMP C Temperature, Body 37.0 LAB PHTC 7.35-7.45 pH, Temp Corrected 7.41 LAB PCO2T 34-46 mm Hg pCO2, Temp Correct 40 LAB PO2T mm Hg pO2, Temp Corrected 105 LAB NAB 135-146 mmol/L Sodium,Whole Low Bld 133 LAB KWB 3.5-5.0 mmol/L Potassium, Whole Bld 4.4 LAB HGBB 13.0-17.0 g/dL Low Hemoglobin,Total,A 10.4 CL LAB HCTB 39.0-51.0 % Hematocrit, Low ACL 32 LAB IC 1.08-1.30 mmol/L Calcium, Ion, WB 1.17 LAB GLB 60-105 mg/dL Glucose,Whole High Bld 121 LAB LACT 0.5-2.2 mmol/L Lactate 1.0 LAB ACBDTE Notify Date, Art [id number] LAB ACBTME Notify Time, Art Performed By: #### ALLBG #### [facility] [address] [place], [place] [address] CBC Collected: 05/24/2018 Status: F Source: [place] 11:[address] [facility] REPOSITORY TYPE CODE TESTS RESULT OUT OF REFERENCE UNITS RANGE LAB WBC 3.70-11.00 k/uL WBC 9.57 LAB RBC 4.20-6.00 m/uL Low RBC 3.04 LAB HGB 13.0-17.0 g/dL Low Hemoglobin 9.7 LAB HCT 39.0-51.0 % Low Hematocrit 28.6 LAB MCV 80.0-100.0 fL MCV 94.1 LAB MCH 26.0-34.0 pG MCH 31.9 LAB MCHC 30.5-36.0 g/dL MCHC 33.9 LAB RDWCV 11.5-15.0 % RDW-CV 14.1 LAB PLTCT 150-400 k/uL Low Platelet Count 93 Result Comment: No clot detected. LAB MPV 9.0-12.7 fL MPV 10.8 LAB ABSNUC <0.01 k/uL Absolute nRBC <0.01 Performed By: #### CBC #### [facility] [address], [place] [address] XR ABDOMEN 1V SUPINE Observed: 05/24/2018 Status: F Source: [place] 10:[address] [facility] REPOSITORY * * *Final Report* * * DATE OF EXAM: May 24 2018 10:58AM [facility] [id number] - XR ABDOMEN 1V SUPINE / PROCEDURE REASON: Abd distension * * * * Physician Interpretation * * * * KUB PORTABLE HISTORY: Abdominal distention TECHNIQUE: Single View, Supine Abdomen; Number of Images: 1 COMPARISON: None RESULT: There is mild gaseous dilation of the stomach. There are mildly dilated gas-filled loops of small bowel. Gas is present in nondilated colon. There are chest tubes. There is a temperature probe tipped Barkley catheter. IMPRESSION: ILEUS. Laminating Machine Tender: MILLY Transcribe Date/Time: May 24 2018 12:52P Dictated by : DOUGLAS ROSARIO MD This examination was interpreted and the report reviewed and electronically signed by: DOUGLAS ROSARIO MD on May 24 2018 12:53PM EST [id number] GASA + ALL Collected: 05/24/2018 Status: F Source: [place] FOR 10:07 AM [facility] USE ONLY REPOSITORY TYPE CODE TESTS RESULT OUT OF REFERENCE UNITS RANGE LAB PH 7.35-7.45 pH 7.39 LAB PCO2 34-46 mm Hg pCO2 44 LAB PO2 85-95 mm Hg pO2 High 106 LAB BE mmol/L Base Excess 2 LAB HCO3 22-26 mmol/L Bicarbonate High 27 LAB CO2CT 22.0-28.0 mmol/L CO2 Content 28 LAB O2HB 95-98 % Oxyhemoglobin, Art. 96 LAB COHB 0-5.0 % Carboxyhemoglobin, 1.2 Art LAB MHGB 0.4-1.5 % Methemoglobin 0.8 LAB TEMP C Temperature, Body 37.0 LAB PHTC 7.35-7.45 pH, Temp Corrected 7.39 LAB PCO2T 34-46 mm Hg pCO2, Temp Correct 44 LAB PO2T mm Hg pO2, Temp Corrected 106 LAB NAB 135-146 mmol/L Sodium,Whole Low Bld 134 LAB KWB 3.5-5.0 mmol/L Potassium, Whole Bld 4.9 LAB HGBB 13.0-17.0 g/dL Low Hemoglobin,Total,A 10.7 CL LAB HCTB 39.0-51.0 % Hematocrit, Low ACL 33 LAB IC 1.08-1.30 mmol/L Calcium, Ion, WB 1.12 LAB GLB 60-105 mg/dL Glucose,Whole High Bld 131 LAB LACT 0.5-2.2 mmol/L Lactate 0.9 LAB ACBDTE Notify Date, Art [id number] LAB ACBTME Notify Time, Art [id number] Performed By: #### ALLBG #### [facility] [address] [place], [place] [address] GASA + ALL Collected: 05/24/2018 Status: F Source: [place] FOR 7:39 AM [facility] USE ONLY REPOSITORY TYPE CODE TESTS RESULT OUT OF REFERENCE UNITS RANGE LAB PH 7.35-7.45 pH 7.41 LAB PCO2 34-46 mm Hg pCO2 42 LAB PO2 85-95 mm Hg pO2 High 99 LAB BE mmol/L Base Excess 2 LAB HCO3 22-26 mmol/L Bicarbonate 26 LAB CO2CT 22.0-28.0 mmol/L CO2 Content 27 LAB O2HB 95-98 % Oxyhemoglobin, Art. 97 LAB COHB 0-5.0 % Carboxyhemoglobin,A 0.1 rt LAB MHGB 0.4-1.5 % Methemoglobin Low 0.1 LAB TEMP C Temperature, Body 37.0 LAB PHTC 7.35-7.45 pH, Temp Corrected 7.41 LAB PCO2T 34-46 mm Hg pCO2, Temp Correct 42 LAB PO2T mm Hg pO2, Temp Corrected 99 LAB NAB 135-146 mmol/L Sodium,Whole Bld Low 134 LAB KWB 3.5-5.0 mmol/L Potassium, Whole Bld 3.9 LAB HGBB 13.0-17.0 g/dL Low Hemoglobin,Total,AC 9.5 L LAB HCTB 39.0-51.0 % Hematocrit, ACL Low 29 LAB IC 1.08-1.30 mmol/L Calcium, Ion, WB 1.15 LAB GLB 60-105 mg/dL Glucose,Whole Bld High 127 LAB LACT 0.5-2.2 mmol/L Lactate 0.9 Performed By: #### ALLBG #### [facility] [address] [place], [place] [address] EKG1 Observed: 05/24/2018 Status: F Source: [place] 6:[address] [facility] REPOSITORY NAME : MACIEJ CROWDER PID : [id number] : 1940 Gender : Male Race : ORD : Procedure Date : May 24 2018 06:54:51 Edit Date : May 27 2018 13:42:28 Diagnosis: SUSPECT UNSPECIFIED PACEMAKER FAILURE ATRIAL FIBRILLATION WITH RAPID VENTRICULAR RESPONSE POSSIBLE INFERIOR MYOCARDIAL INFARCTION , AGE UNDETERMINED ABNORMAL ECG Confirmed by MD RICARDO, PhD, HERNAN ([id number]) on 05/27/2018 1:42:23 PM Ventricular Rate : 121 BPM Atrial Rate : 103 BPM QRS Duration : 88 ms Q-T Interval : 324 ms QTC Calculation(Bezet) : 460 ms R Centerpoint : 32 degrees T Centerpoint : -53 degrees Test Reason : AFIB Location : 564 : [id number] Overread By : MD RICARDO, PhD,HERNAN Edited By : MD RICARDO, PhD,HERNAN Referred By : , Acquired by : ENRIQUE KERR GASA + ALL Collected: 05/24/2018 Status: F Source: [facility] 5:[address] [facility] USE ONLY REPOSITORY TYPE CODE TESTS RESULT OUT OF REFERENCE UNITS RANGE LAB PH 7.35-7.45 pH 7.41 LAB PCO2 34-46 mm Hg pCO2 40 LAB PO2 85-95 mm Hg pO2 High 99 LAB BE mmol/L Base Excess 1 LAB HCO3 22-26 mmol/L Bicarbonate 25 LAB CO2CT 22.0-28.0 mmol/L CO2 Content 27 LAB O2HB 95-98 % Oxyhemoglobin, Art. 96 LAB COHB 0-5.0 % Carboxyhemoglobin,A 1.2 rt LAB MHGB 0.4-1.5 % Methemoglobin 0.8 LAB TEMP C Temperature, Body 37.0 LAB PHTC 7.35-7.45 pH, Temp Corrected 7.41 LAB PCO2T 34-46 mm Hg pCO2, Temp Correct 40 LAB PO2T mm Hg pO2, Temp Corrected 99 LAB NAB 135-146 mmol/L Sodium,Whole Bld 136 LAB KWB 3.5-5.0 mmol/L Potassium, Whole Bld 4.1 LAB HGBB 13.0-17.0 g/dL Low Hemoglobin,Total,AC 9.4 L LAB HCTB 39.0-51.0 % Hematocrit, ACL Low 29 LAB IC 1.08-1.30 mmol/L Calcium, Ion, WB 1.17 LAB GLB 60-105 mg/dL Glucose,Whole Bld High 108 LAB LACT 0.5-2.2 mmol/L Lactate 0.7 Performed By: #### ALLBG #### [facility] [address] [place], [place] [address] XR CHEST 1V FRONTAL Observed: 05/24/2018 Status: F Source: [place] 5:[address] [facility] REPOSITORY * * *Final Report* * * DATE OF EXAM: May 24 2018 5:18AM JIX [id number] - XR CHEST 1V FRONTAL / PROCEDURE REASON: Post-operative / post-procedure assessment, asymptomatic * * * * Physician Interpretation * * * * EXAMINATION: CHEST RADIOGRAPH (PORTABLE SINGLE VIEW AP) Exam Date/Time: 05/24/2018 5:18 AM Clinical History: Post-operative / post-procedure assessment, asymptomatic, MQ: [id number] Comparison: 1 day prior RESULT: See impression. IMPRESSION: Lines, tubes, and devices: Stable right IJ venous catheter and curved mediastinal as well as left chest drain. Lungs and pleura: No change in scattered reticular opacities in both lungs which may represent pulmonary edema. No change in bilateral basilar atelectases and small pleural effusions. No definite pneumothorax identified. Cardiomediastinal silhouette: Stable enlargement of the cardiomediastinal silhouette. Stable aortic valve prosthesis. Other: Median sternotomy. Remote right upper and left lower rib fractures. Degenerative changes and diffuse osteopenia . Laminating Machine Tender: PSCTracy Transcribe Date/Time: May 24 2018 2:21P Dictated by : LIO KENDRICK MD This examination was interpreted and the report reviewed and electronically signed by: LIO KENDRICK MD on May 24 2018 2:22PM EST [id number] GASA + ALL Collected: 05/24/2018 Status: F Source: [place] FOR 2:14 AM [facility] USE ONLY REPOSITORY TYPE CODE TESTS RESULT OUT OF REFERENCE UNITS RANGE LAB PH 7.35-7.45 pH 7.40 LAB PCO2 34-46 mm Hg pCO2 43 LAB PO2 85-95 mm Hg pO2 High 118 LAB BE mmol/L Base Excess 2 LAB HCO3 22-26 mmol/L Bicarbonate 26 LAB CO2CT 22.0-28.0 mmol/L CO2 Content 27 LAB O2HB 95-98 % Oxyhemoglobin, Art. 96 LAB COHB 0-5.0 % Carboxyhemoglobin,A 1.6 rt LAB MHGB 0.4-1.5 % Methemoglobin Low 0.3 LAB TEMP C Temperature, Body 37.0 LAB PHTC 7.35-7.45 pH, Temp Corrected 7.40 LAB PCO2T 34-46 mm Hg pCO2, Temp Correct 43 LAB PO2T mm Hg pO2, Temp Corrected 118 LAB NAB 135-146 mmol/L Sodium,Whole Bld 136 LAB KWB 3.5-5.0 mmol/L Potassium, Whole Bld 4.0 LAB HGBB 13.0-17.0 g/dL Low Hemoglobin,Total,AC 9.3 L LAB HCTB 39.0-51.0 % Hematocrit, ACL Low 29 LAB IC 1.08-1.30 mmol/L Calcium, Ion, WB 1.17 LAB GLB 60-105 mg/dL Glucose,Whole Bld High 118 LAB LACT 0.5-2.2 mmol/L Lactate 0.7 Performed By: #### ALLBG #### [facility] [address] [place], [place] [address] CBC Collected: 05/24/2018 Status: F Source: [place] 2:[address] [facility] REPOSITORY TYPE CODE TESTS RESULT OUT OF REFERENCE UNITS RANGE LAB WBC 3.70-11.00 k/uL WBC 8.74 LAB RBC 4.20-6.00 m/uL Low RBC 2.68 LAB HGB 13.0-17.0 g/dL Low Hemoglobin 8.6 LAB HCT 39.0-51.0 % Low Hematocrit 25.0 LAB MCV 80.0-100.0 fL MCV 93.3 LAB MCH 26.0-34.0 pG MCH 32.1 LAB MCHC 30.5-36.0 g/dL MCHC 34.4 LAB RDWCV 11.5-15.0 % RDW-CV 14.2 LAB PLTCT 150-400 k/uL Low Platelet Count 90 Result Comment: No clot detected. LAB MPV 9.0-12.7 fL MPV 10.0 LAB ABSNUC <0.01 k/uL Absolute nRBC <0.01 Performed By: #### CBC, CMP #### [place] [address] [place] [address] COMP METABOLIC PANEL Collected: 05/24/2018 Status: F Source: [place] 2:[address] [facility] REPOSITORY TYPE CODE TESTS RESULT OUT OF REFERENCE UNITS RANGE LAB TP 6.3-8.0 g/dL Low Protein, Total 5.6 LAB ALB 3.9-4.9 g/dL Low Albumin 3.3 LAB CA 8.5-10.2 mg/dL Low Calcium, Total 8.1 LAB TBIL 0.2-1.3 mg/dL Bilirubin, Total 0.4 LAB ALKP 38-113 U/L Alkaline Phosphatase 39 LAB AST 14-40 U/L AST High 49 LAB GLU 74-99 mg/dL Glucose High 116 Result Comment: The [place] [employer] (ADA) provides guidance for cutoff values for fasting glucose and random glucose. The ADA defines fasting as no caloric intake for at least 8 hours. Fas ting plasma glucose results between 100 to 125 mg/dL indicate increased risk for diabetes (prediabetes). Fasting plasma glucose results greater than or equal to 126 mg/dL meet the criteria for diagnosis of diabetes. In the absence of unequivocal hyperglycemia, results should be confirmed by repeat testing. In a patient with classic symptoms of hyperglycemia or hyperglycemic crisis, random plasma glucose results greater than or equal to 200 mg/dL meet the criteria for diagnosis of diabetes. Reference: Standards of Medical Care in Diabetes 2016, [place] [employer]. Diabetes Care. 2016.39(Suppl 1). LAB BUN 9-24 mg/dL BUN 24 LAB CRET 0.73-1.22 mg/dL Creatinine 1.07 LAB NA 136-144 mmol/L Sodium 136 LAB K 3.7-5.1 mmol/L Potassium 4.3 LAB CL 97-105 mmol/L Chloride 100 LAB CO2 22-30 mmol/L CO2 25 LAB AGAP 9-18 mmol/L Anion Gap 11 LAB ALT 10-54 U/L ALT 23 LAB GFRAA eGFR- Amer. >60 LAB GFRNAA . eGFR-All Other Races >60 Result Comment: eGFR (Estimated GFR) Units of measure: mL/min/1.73 meters squared eGFR is derived from the reexpressed MDRD Study equation using the following parameters: serum creatinine, age, gender and race. The creatinine assay has been calibrated to be traceable to IDMS. An eGFR <60 mL/min/1.73m2 for >3 months is consistent with chronic kidney disease. Refer to KDOQI guidelines for clinical interpretation. In patients with unstable renal function, e.g. those with acute kidney injury, the eGFR may not accurately reflect actual GFR. Performed By: #### CBC, CMP #### [facility] [address] [place], [place] [address] PROGRESS Observed: 05/24/2018 Status: COMPLETED Source: [place] 1:[address] [facility] REPOSITORY HNO ID: [id number] Author: Downtime Note Service: (none) Author Type: (none) Type: Progress Notes Filed: 05/24/2018 2:00 AM Note Text: Epic Scheduled Downtime: 05/24/2018 12:00:01 AM to 05/24/2018 1:54:00 AM GASA + ALL Collected: 05/23/2018 Status: F Source: [place] FOR 11:[address] [facility] RADIANCE USE ONLY REPOSITORY TYPE CODE TESTS RESULT OUT OF REFERENCE UNITS RANGE LAB PH 7.35-7.45 pH 7.39 LAB PCO2 34-46 mm Hg pCO2 41 LAB PO2 85-95 mm Hg pO2 Low 75 LAB BE mmol/L Base Excess 0 LAB HCO3 22-26 mmol/L Bicarbonate 24 LAB CO2CT 22.0-28.0 mmol/L CO2 Content 25 LAB O2HB 95-98 % Oxyhemoglobin, Low Art. 93 LAB COHB 0-5.0 % Carboxyhemoglobin,A 1.4 rt LAB MHGB 0.4-1.5 % Methemoglobin 0.6 LAB TEMP C Temperature, Body 37.0 LAB PHTC 7.35-7.45 pH, Temp Corrected 7.39 LAB PCO2T 34-46 mm Hg pCO2, Temp Correct 41 LAB PO2T mm Hg pO2, Temp Corrected 75 LAB NAB 135-146 mmol/L Sodium,Whole Bld 135 LAB KWB 3.5-5.0 mmol/L Potassium, Whole Bld 4.0 LAB HGBB 13.0-17.0 g/dL Low Hemoglobin,Total,AC 9.4 L LAB HCTB 39.0-51.0 % Hematocrit, ACL Low 29 LAB IC 1.08-1.30 mmol/L Calcium, Ion, WB 1.15 LAB GLB 60-105 mg/dL Glucose,Whole Bld High 119 LAB LACT 0.5-2.2 mmol/L Lactate 0.7 Performed By: #### ALLBG #### [facility] [address] [place], [place] [address] XR CHEST 1V FRONTAL Observed: 05/23/2018 Status: F Source: [place] 10:[address] [facility] REPOSITORY * * *Final Report* * * DATE OF EXAM: May 23 2018 10:50PM [facility] [id number] - XR CHEST 1V FRONTAL / PROCEDURE REASON: Dyspnea, chronic, initial exam * * * * Physician Interpretation * * * * EXAMINATION: CHEST RADIOGRAPH (PORTABLE SINGLE VIEW AP) Exam Date/Time: 05/23/2018 10:50 PM Clinical History: Dyspnea, chronic, initial exam, MQ: [id number] Comparison: 1 day prior RESULT: See impression. IMPRESSION: Lines, tubes, and devices: Interval extubation and removal of NG tube as well as PA catheter. Right IJ venous/vascular sheath remains intact and in stable position. Curved mediastinal/pericardial drain and left basilar chest tube are unchanged in positions. Vertically oriented/straight mediastinal drain is no longer identified. Lungs and pleura: Improved interstitial edema pattern. Stable atelectasis/mild scarring in the left perihilar region. Left hemidiaphragm remains elevated. Small pleural effusions are noted with associated atelectasis/consolidative in the lung bases. Cannot exclude infection or aspiration in the lung bases. No pneumothorax. Cardiomediastinal silhouette: Stable cardiomediastinal silhouette. Stable aortic valve prosthesis. Other: Median sternotomy.. Laminating Machine Tender: PSCB Transcribe Date/Time: May 24 2018 2:56P Dictated by : LIO KENDRICK MD This examination was interpreted and the report reviewed and electronically signed by: LIO KENDRICK MD on May 24 2018 2:58PM EST [id number] GASA + ALL Collected: 05/23/2018 Status: F Source: [facility] 9:15 PM [facility] USE ONLY REPOSITORY TYPE CODE TESTS RESULT OUT OF REFERENCE UNITS RANGE LAB PH 7.35-7.45 pH 7.39 LAB PCO2 34-46 mm Hg pCO2 41 LAB PO2 85-95 mm Hg pO2 Low 79 LAB BE mmol/L Base Excess 0 LAB HCO3 22-26 mmol/L Bicarbonate 24 LAB CO2CT 22.0-28.0 mmol/L CO2 Content 26 LAB O2HB 95-98 % Oxyhemoglobin, Low Art. 94 LAB COHB 0-5.0 % Carboxyhemoglobin,A 1.5 rt LAB MHGB 0.4-1.5 % Methemoglobin 0.5 LAB TEMP C Temperature, Body 37.0 LAB PHTC 7.35-7.45 pH, Temp Corrected 7.39 LAB PCO2T 34-46 mm Hg pCO2, Temp Correct 41 LAB PO2T mm Hg pO2, Temp Corrected 79 LAB NAB 135-146 mmol/L Sodium,Whole Bld 135 LAB KWB 3.5-5.0 mmol/L Potassium, Whole Bld 4.1 LAB HGBB 13.0-17.0 g/dL Low Hemoglobin,Total,AC 8.9 L LAB HCTB 39.0-51.0 % Hematocrit, ACL Low 28 LAB IC 1.08-1.30 mmol/L Calcium, Ion, WB 1.14 LAB GLB 60-105 mg/dL Glucose,Whole Bld High 136 LAB LACT 0.5-2.2 mmol/L Lactate 0.8 Performed By: #### ALLBG #### [facility] [employer] [address] [place], [place] [address] GASA + ALL Collected: 05/23/2018 Status: F Source: [place] FOR 7:[address] [facility] RADIANCE USE ONLY REPOSITORY TYPE CODE TESTS RESULT OUT OF REFERENCE UNITS RANGE LAB PH 7.35-7.45 pH 7.40 LAB PCO2 34-46 mm Hg pCO2 40 LAB PO2 85-95 mm Hg pO2 Low 75 LAB BE mmol/L Base Excess 0 LAB HCO3 22-26 mmol/L Bicarbonate 24 LAB CO2CT 22.0-28.0 mmol/L CO2 Content 26 LAB O2HB 95-98 % Oxyhemoglobin, Low Art. 93 LAB COHB 0-5.0 % Carboxyhemoglobin,A 1.6 rt LAB MHGB 0.4-1.5 % Methemoglobin 0.7 LAB TEMP C Temperature, Body 37.0 LAB PHTC 7.35-7.45 pH, Temp Corrected 7.40 LAB PCO2T 34-46 mm Hg pCO2, Temp Correct 40 LAB PO2T mm Hg pO2, Temp Corrected 75 LAB NAB 135-146 mmol/L Sodium,Whole Bld 136 LAB KWB 3.5-5.0 mmol/L Potassium, Whole Bld 4.3 LAB HGBB 13.0-17.0 g/dL Low Hemoglobin,Total,AC 9.8 L LAB HCTB 39.0-51.0 % Hematocrit, ACL Low 30 LAB IC 1.08-1.30 mmol/L Calcium, Ion, WB 1.16 LAB GLB 60-105 mg/dL Glucose,Whole Bld High 121 LAB LACT 0.5-2.2 mmol/L Lactate 0.9 Performed By: #### ALLBG #### [facility] [address] [place], [place] [address] GASA + ALL Collected: 05/23/2018 Status: F Source: [place] FOR 5:19 PM [facility] USE ONLY REPOSITORY TYPE CODE TESTS RESULT OUT OF REFERENCE UNITS RANGE LAB PH 7.35-7.45 pH 7.37 LAB PCO2 34-46 mm Hg pCO2 39 LAB PO2 85-95 mm Hg pO2 High 119 LAB BE mmol/L Base Excess NEG 2 LAB HCO3 22-26 mmol/L Bicarbonate 22 LAB CO2CT 22.0-28.0 mmol/L CO2 Content 24 LAB O2HB 95-98 % Oxyhemoglobin, Art. 97 LAB COHB 0-5.0 % Carboxyhemoglobin,A 1.4 rt LAB MHGB 0.4-1.5 % Methemoglobin 0.7 LAB TEMP C Temperature, Body 37.0 LAB PHTC 7.35-7.45 pH, Temp Corrected 7.37 LAB PCO2T 34-46 mm Hg pCO2, Temp Correct 39 LAB PO2T mm Hg pO2, Temp Corrected 119 LAB NAB 135-146 mmol/L Sodium,Whole Bld 136 LAB KWB 3.5-5.0 mmol/L Potassium, Whole Bld 3.9 LAB HGBB 13.0-17.0 g/dL Low Hemoglobin,Total,AC 9.9 L LAB HCTB 39.0-51.0 % Hematocrit, ACL Low 31 LAB IC 1.08-1.30 mmol/L Calcium, Ion, WB 1.15 LAB GLB 60-105 mg/dL Glucose,Whole Bld High 130 LAB LACT 0.5-2.2 mmol/L Lactate 1.3 Performed By: #### ALLBG #### [facility] [address] [place], [place] [address] CASE MGT INIT Observed: 05/23/2018 Status: COMPLETED Source: [facility] 1:23 PM [facility] REPOSITORY HNO ID: [id number] Author: Lorena (Rn) CHERI Zamorano Service: Case Management Author Type: Registered Nurse Type: Care Mgt Initial Assessment Filed: 05/23/2018 1:35 PM Note Text: CARE MANAGEMENT: ASSESSMENT AND DISCHARGE PLAN SERVICE DATE: 05/23/2018 SERVICE TIME: 1:23 PM PRIMARY CARE PHYSICIAN: Vidal Valdes MD ADMISSION STATUS: Inpatient Needs Prior to Discharge: To Be Determined MEDICAL: Patient/Composition Professor Stated Goals: To improve my functional status Health Insurance: BLUE CARD PPO BLUE CARD PPO Health Issues Impacting Discharge Plan: Acquired Stenosis of Aortic Valve Last Admission Date: none Is this Within the Past 30 days? No Advance Directive: Current Advance Directive: Health Care Power of Chucking Machine Set Up Operator Tool In Chart: Yes Up To Date and Valid: Yes Health Literacy: 1. How often do you need to have someone help you when you read instructions, pamphlets, or other written material from your doctor or pharmacy? Never - 1 2. How confident are you filling out medical forms by yourself? Extremely - 1 If Patient scores > 3 on either question, the following interventions were put into place: Use of plain language and active listening with Patient and family FUNCTIONAL AND COGNITIVE/BEHAVIORAL PRIOR TO ADMISSION: Baseline Mental Status: Alert AND Oriented, Person, Place , Time and Situation Functional Status: Independent Does Patient Currently Receive Any Community Services or Home Care? None Equipment Prior to Admission: None Has the Patient Been in a Usp Facility in the Past 30 days? No SOCIAL: Living Arrangement: Home Lives With: Spouse Financial Resources: Employed: . Primary Contact: Extended Emergency Contact Information Primary Emergency Contact: Kayla Crowder Mobile Relation: Son Secondary Emergency Contact: Ángel Crowder Address: [address] [place] [address] Mobile Relation: Spouse Supportive: Yes Other Important Patient Contacts: None Caregiver Assessment: Caregiver is ready, willing and able to meet the patient's needs as recommended by the inter-professional team? Yes Patient's transition needs and plan for meeting these needs: Family will assist with needs. Does the patient have an acute stroke diagnosis, or has the patient had a stroke during this admission? No Medication Adherence: I am convinced of the importance of my prescription medication: Agree completely - 0 I worry that my prescription medication will do more harm than good to me Disagree mostly - 0 I feel financially burdened by my [id number]-[id number] expenses for my prescription medication: Agree completely - 2 Patient is categorized as low risk < 2 Are you interested in bedside delivery of your medications? No Food Concerns: In the Last Month, Have You had Trouble Getting Food? No trouble getting food During the Last Month, Have You Worried Whether Your Food Would Run Out Before You Had Enough Money to Buy More? No Is the Patient Psychosocially Complex? No ASSESSMENT AND PLAN: Medical Needs: 2 or more chronic diseases Psychosocial Needs: None FREEDOM OF CHOICE EXPLAINED: Yes Floyd of Choice process explained. POTENTIAL TRANSITION PLANS To Be Determined Initial assessment completed at bedside. Role of Case Management and Floyd of Choice process explained. Pt AANDOx3 here for acquired stenosis of aortic valve. Pt reports being independent prior to admission. Pt has no in home services, DME or Home O2. D/C needs and date TBD. Case Management will follow for post hospital needs. SIGNATURE: Lorena Zamorano RN PATIENT NAME: Maciej Crowder DATE: May 23, 2018 TIME: 1:23 PM PAGER/CONTACT #: [phone] GASA + ALL Collected: 05/23/2018 Status: F Source: [place] FOR 12:[address] [facility] RADIANCE USE ONLY REPOSITORY TYPE CODE TESTS RESULT OUT OF REFERENCE UNITS RANGE LAB PH 7.35-7.45 pH 7.36 LAB PCO2 34-46 mm Hg pCO2 37 LAB PO2 85-95 mm Hg pO2 High 115 LAB BE mmol/L Base Excess NEG 4 LAB HCO3 22-26 mmol/L Bicarbonate Low 20 LAB CO2CT 22.0-28.0 mmol/L CO2 Content Low 21 LAB O2HB 95-98 % Oxyhemoglobin, Art. 97 LAB COHB 0-5.0 % Carboxyhemoglobin,A 1.4 rt LAB MHGB 0.4-1.5 % Methemoglobin 0.7 LAB TEMP C Temperature, Body 37.0 LAB PHTC 7.35-7.45 pH, Temp Corrected 7.36 LAB PCO2T 34-46 mm Hg pCO2, Temp Correct 37 LAB PO2T mm Hg pO2, Temp Corrected 115 LAB NAB 135-146 mmol/L Sodium,Whole Bld 136 LAB KWB 3.5-5.0 mmol/L Potassium, Whole Bld 4.0 LAB HGBB 13.0-17.0 g/dL Low Hemoglobin,Total,AC 9.0 L LAB HCTB 39.0-51.0 % Hematocrit, ACL Low 28 LAB IC 1.08-1.30 mmol/L Calcium, Ion, WB 1.08 LAB GLB 60-105 mg/dL Glucose,Whole Bld High 153 LAB LACT 0.5-2.2 mmol/L Lactate 1.2 Performed By: #### ALLBG #### [facility] [address] [place], [place] [address] PROGRESS Observed: 05/23/2018 Status: COMPLETED Source: [place] 10:[address] [facility] REPOSITORY HNO ID: [id number] Author: Carmelita Bonds Service: Critical Care Author Type: Anesthesiologist Type: Progress Notes Filed: 05/23/2018 10:20 AM Note Text: [facility] Note Name: Maciej Crowder I reviewed and updated the patient's history and course in the Care Coordination Note below with my personal assessment as needed on 05/23/2018 CARE COORDINATION NOTE: Indication for Surgery: Severe , CAD Preop LVEF: 45% RVF: Normal Postop LVEF: 50% RVF: Normal Important/Relevant PMH/PSH: mild asthma, diverticulosis. Work accident with rib fractures AND pneumothorax. Family hx of Malignant Hyperthermia. Preoperative Hospital Course: Elective Surgery Airway Difficulty: Grade I - No special instrumentation Pacing Wires: Yes: Atrial and Ventricular: When discontinuing pacing wires: Cut A/Pull V pacing wires Chronological List of Surgeries and Major Events (Diagnosis): (Surgeries in bold characters) 05/22/2018: CABG x3, ROSA-LAD, SVG-OM1, SVG-PDA, AVR # 25 CE; OR course with coagulopathy treated with platelets. A/P of Major Active Problems (excluding routine care and common problems): Cardiac: Hypotension: norepinephrine for maps >65 Cardiac insufficiency: epinephrine for CI > 2.3 Fluid overload: start lasix To Do or to Watch: D/c mediastinal CT Lasix Discharge Planning: Anticipated Discharge Date: Unknown Barriers to Discharge: Unknown Care Management Discharge Needs: Problems I reviewed and/or updated during this encounter on 05/23/2018 include: Problem Coronary Artery Disease Involving [place] Coronary Artery 05/22/2018 - CABG x3, ROSA-LAD, SVG-OM1, SVG-PDA CAD Core Measures: Aspirin: Yes Beta blockers: No - due to hypotension Statins: Reassess for Best Practices prior to hospital discharge Postprocedural Hypotension wean norepinephrine for maps >65 Acute On Chronic Systolic Heart Failure (Hcc) Preop EF 45%, post 50% A/p - required Epi post CPB; wean for CI >2.3 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 Encourage oxy IR for BTP. Goal pain score <4. Stress Hyperglycemia A/p -Perioperative insulin resistance and exacerbation of hyperglycemia; titrate RHI infusion for glycemic control. Start SSI PHYSICAL EXAM AND PERTINENT DATA: BP 176/83 Pulse 89 Temp 36 ?C (96.8 ?F) Resp 14 Ht 166.4 cm (5' 5.5) Wt 71.6 kg (157 lb 14.4 oz) SpO2 94% BMI 25.88 kg/m? Neuro: Awake and Follows commands Pain Control : Is pain control adequate: Yes Cardiovascular: Rhythm: regular rate and rhythm Pulmonary: Clear to auscultation and Breath sounds equal Ventilator: N/A, patient is extubated CXR Findings: CXR personally viewed and interpreted by ICU staff Physician Renal: Intake/Output 05/22/18 0700 - 05/23/18 0659 05/23/18 0700 - 05/24/18 0659 Intake (ml) 7054.5 -- Output (ml) 3215 425 Net (ml) 3839.5 -425 CBC, Coags, BMP, Mg, Phos Recent Labs 05/23/18 0940 05/23/18 0416 05/23/18 0414 05/23/18 0215 05/23/18 0028 05/22/18 2230 05/22/18 1551 WBC -- -- -- -- 10.04 -- -- 11.13* -- 14.66* HB -- -- -- -- 8.5* -- -- 7.8* -- 10.1* HCT -- -- -- -- 25.2* -- -- 24.1* -- 30.4* PLT -- -- -- -- 128* -- -- 147* -- 164 INR -- -- -- -- 1.2 -- -- 1.3 -- 1.4* APTT -- -- -- -- 28.8 -- -- 31.4 -- 29.8 NA -- -- -- -- 138 -- -- -- -- -- K -- -- -- -- 4.6 -- -- -- -- -- CHLOR -- -- -- -- 103 -- -- -- -- -- CO2 -- 27 -- -- 23 -- 23* -- < > -- BUN -- -- -- -- 16 -- -- -- -- -- CREAT -- -- -- -- 1.01 -- -- -- -- -- GLUC -- -- -- -- 151* -- -- -- -- -- IC 1.12 1.18 1.14 < > -- < > 1.20 -- < > -- CA -- -- -- -- 8.4* -- -- -- -- -- < > = values in this interval not displayed. Liver Function, Amylase, AND Lipase Recent Labs 05/23/1893905/23/1841505/23/1841305/23/18214 TPROT -- -- -- -- 5.2* ALB -- -- -- -- 3.6* ALT -- -- -- -- 19 AST -- -- -- -- 42* ALKPHOS -- -- -- -- 40 TBILI -- -- -- -- 0.5 LACT 1.0 1.2 1.1 < > -- < > = values in this interval not displayed. ABGs Recent Labs 05/23/1893905/23/1841305/23/18218 PH 7.36 7.37 7.38 PCO2 38 42 41 PO2 110* 155* 120* BE NEG 3 NEG 1 NEG 1 HCO3 21* 24 24 CO2CT 22 25 25 O2HB 96 97 97 COHB 1.8 1.2 0.8 MHGB 0.3* 0.7 0.6 TEMP 37.0 37.0 37.0 PHTC 7.36 7.37 7.38 PCO2T 38 42 41 PO2T 110 155 120 DAILY CVICU CHECKLIST VTE Prophylaxis: Pharmacologic Yes VTE Prophylaxis: Mechanical: Yes Line infection prevention: Can CVC, PAC or arterial line be removed: Yes - Remove PA catheter Continued need for urinary catheter: Yes - clinical indication: Patient post major surgery requiring fluid balance and input and output measurement. NOTE OF PERSONAL INVOLVEMENT IN CARE I reviewed lab results and current medications. I discussed the management plan with the RN and RT. This patient has a high probability of sudden, clinically significant deterioration, which requires the highest level of preparedness to intervene urgently. I participated in the decision making and personally managed or directed the care plan, including the following medical problems that required my frequent assessment to treat or prevent imminent deterioration Problem Coronary Artery Disease Involving [place] Coronary Artery Postprocedural Hypotension Acute On Chronic Systolic Heart Failure (Hcc) Post-Operative Pain Stress Hyperglycemia I personally spent 38 minutes of critical care time treating the patient. Time devoted to any procedures I billed separately is not included. SIGNATURE: Carmelita Bonds MD DATE of SERVICE: 05/23/2018 TIME of SERVICE: 10:20 AM GASA + ALL Collected: 05/23/2018 Status: F Source: [place] FOR 9:[address] [facility] RADIANCE USE ONLY REPOSITORY TYPE CODE TESTS RESULT OUT OF REFERENCE UNITS RANGE LAB PH 7.35-7.45 pH 7.36 LAB PCO2 34-46 mm Hg pCO2 38 LAB PO2 85-95 mm Hg pO2 High 110 LAB BE mmol/L Base Excess NEG 3 LAB HCO3 22-26 mmol/L Bicarbonate Low 21 LAB CO2CT 22.0-28.0 mmol/L CO2 Content 22 LAB O2HB 95-98 % Oxyhemoglobin, Art. 96 LAB COHB 0-5.0 % Carboxyhemoglobin,A 1.8 rt LAB MHGB 0.4-1.5 % Methemoglobin Low 0.3 LAB TEMP C Temperature, Body 37.0 LAB PHTC 7.35-7.45 pH, Temp Corrected 7.36 LAB PCO2T 34-46 mm Hg pCO2, Temp Correct 38 LAB PO2T mm Hg pO2, Temp Corrected 110 LAB NAB 135-146 mmol/L Sodium,Whole Bld 137 LAB KWB 3.5-5.0 mmol/L Potassium, Whole Bld 4.4 LAB HGBB 13.0-17.0 g/dL Low Hemoglobin,Total,AC 10.0 L LAB HCTB 39.0-51.0 % Hematocrit, ACL Low 31 LAB IC 1.08-1.30 mmol/L Calcium, Ion, WB 1.12 LAB GLB 60-105 mg/dL Glucose,Whole Bld High 143 LAB LACT 0.5-2.2 mmol/L Lactate 1.0 Performed By: #### ALLBG #### [facility] [employer] [address] [place], [place] [address] GASV + ALL Collected: 05/23/2018 Status: F Source: [place] 4:[address] [facility] REPOSITORY TYPE CODE TESTS RESULT OUT OF REFERENCE UNITS RANGE LAB VPH 7.32-7.42 pH 7.34 LAB VPC2 42-55 mm Hg pCO2 49 LAB VPO2 35-45 mm Hg pO2 38 LAB VBE mmol/L Base Excess 1 LAB VHC3 24-28 mmol/L Bicarbonate 26 LAB VC2C 25-29 mmol/L CO2 Content 27 LAB O2HBCX 60-85 % Oxyhemoglobin, Evelio. 65 LAB CO <2.0 % Carboxyhemoglobin,V 1.0 en LAB METHB 0.4-1.5 % Methemoglobin 0.7 LAB VTMP C Temperature, Body 37.0 LAB VPHTC 7.32-7.42 pH, Temp Corrected 7.34 LAB VPC2T mm Hg pCO2, Temp Correct 49 LAB VPO2T mm Hg pO2, Temp Corrected 38 LAB NAB 135-146 mmol/L Sodium,Whole Bld 135 LAB KWB 3.5-5.0 mmol/L Potassium, Whole Bld 4.3 LAB HGBB 13.0-17.0 g/dL Low Hemoglobin,Total,AC 8.5 L LAB HCTB 39.0-51.0 % Hematocrit, ACL Low 26 LAB IC 1.08-1.30 mmol/L Calcium, Ion, WB 1.18 LAB GLB 60-105 mg/dL Glucose,Whole Bld High 121 LAB LACT 0.5-2.2 mmol/L Lactate 1.2 Performed By: #### VALLBG #### [facility] [address] [place], [place] [address] GASA + ALL Collected: 05/23/2018 Status: F Source: [place] FOR 4:[address] [facility] RADIANCE USE ONLY REPOSITORY TYPE CODE TESTS RESULT OUT OF REFERENCE UNITS RANGE LAB PH 7.35-7.45 pH 7.37 LAB PCO2 34-46 mm Hg pCO2 42 LAB PO2 85-95 mm Hg pO2 High 155 LAB BE mmol/L Base Excess NEG 1 LAB HCO3 22-26 mmol/L Bicarbonate 24 LAB CO2CT 22.0-28.0 mmol/L CO2 Content 25 LAB O2HB 95-98 % Oxyhemoglobin, Art. 97 LAB COHB 0-5.0 % Carboxyhemoglobin,A 1.2 rt LAB MHGB 0.4-1.5 % Methemoglobin 0.7 LAB TEMP C Temperature, Body 37.0 LAB PHTC 7.35-7.45 pH, Temp Corrected 7.37 LAB PCO2T 34-46 mm Hg pCO2, Temp Correct 42 LAB PO2T mm Hg pO2, Temp Corrected 155 LAB NAB 135-146 mmol/L Sodium,Whole Bld 136 LAB KWB 3.5-5.0 mmol/L Potassium, Whole Bld 4.1 LAB HGBB 13.0-17.0 g/dL Low Hemoglobin,Total,AC 8.3 L LAB HCTB 39.0-51.0 % Hematocrit, ACL Low 26 LAB IC 1.08-1.30 mmol/L Calcium, Ion, WB 1.14 LAB GLB 60-105 mg/dL Glucose,Whole Bld High 119 LAB LACT 0.5-2.2 mmol/L Lactate 1.1 Performed By: #### ALLBG #### [facility] [address] [place] [address] GASA + ALL Collected: 05/23/2018 Status: F Source: [place] FOR 2:[address] [facility] RADIANCE USE ONLY REPOSITORY TYPE CODE TESTS RESULT OUT OF REFERENCE UNITS RANGE LAB PH 7.35-7.45 pH 7.38 LAB PCO2 34-46 mm Hg pCO2 41 LAB PO2 85-95 mm Hg pO2 High 120 LAB BE mmol/L Base Excess NEG 1 LAB HCO3 22-26 mmol/L Bicarbonate 24 LAB CO2CT 22.0-28.0 mmol/L CO2 Content 25 LAB O2HB 95-98 % Oxyhemoglobin, Art. 97 LAB COHB 0-5.0 % Carboxyhemoglobin,A 0.8 rt LAB MHGB 0.4-1.5 % Methemoglobin 0.6 LAB TEMP C Temperature, Body 37.0 LAB PHTC 7.35-7.45 pH, Temp Corrected 7.38 LAB PCO2T 34-46 mm Hg pCO2, Temp Correct 41 LAB PO2T mm Hg pO2, Temp Corrected 120 LAB NAB 135-146 mmol/L Sodium,Whole Bld 136 LAB KWB 3.5-5.0 mmol/L Potassium, Whole Bld 4.3 LAB HGBB 13.0-17.0 g/dL Low Hemoglobin,Total,AC 8.8 L LAB HCTB 39.0-51.0 % Hematocrit, ACL Low 27 LAB IC 1.08-1.30 mmol/L Calcium, Ion, WB 1.19 LAB GLB 60-105 mg/dL Glucose,Whole Bld High 146 LAB LACT 0.5-2.2 mmol/L Lactate 1.8 Performed By: #### ALLBG #### [facility] [employer] [address] [place], [place] [address] CBC Collected: 05/23/2018 Status: F Source: [place] 2:[address] [facility] REPOSITORY TYPE CODE TESTS RESULT OUT OF REFERENCE UNITS RANGE LAB WBC 3.70-11.00 k/uL WBC 10.04 LAB RBC 4.20-6.00 m/uL Low RBC 2.66 LAB HGB 13.0-17.0 g/dL Low Hemoglobin 8.5 LAB HCT 39.0-51.0 % Low Hematocrit 25.2 LAB MCV 80.0-100.0 fL MCV 94.7 LAB MCH 26.0-34.0 pG MCH 32.0 LAB MCHC 30.5-36.0 g/dL MCHC 33.7 LAB RDWCV 11.5-15.0 % RDW-CV 13.5 LAB PLTCT 150-400 k/uL Low Platelet Count 128 LAB MPV 9.0-12.7 fL MPV 9.7 LAB ABSNUC <0.01 k/uL Absolute nRBC <0.01 Performed By: #### CBC, FIBCT, PT, PTT, CMP, CHARLENE #### [place] [address] [place], [place] [address] FIBRINOGEN Collected: 05/23/2018 Status: F Source: [place] 2:[address] [facility] REPOSITORY TYPE CODE TESTS RESULT OUT OF REFERENCE UNITS RANGE LAB FIBCT 200-400 mg/dL Fibrinogen 347 Performed By: #### CBC, FIBCT, PT, PTT, CMP, CHARLENE #### [facility] [address] [place], [place] [address] PROTIME Collected: 05/23/2018 Status: F Source: [place] 2:[address] [facility] REPOSITORY TYPE CODE TESTS RESULT OUT OF RANGE REFERENCE UNITS LAB PSEC 9.7-13.0 sec PT Sec 12.5 LAB INR 0.9-1.3 PT INR 1.2 Result Comment: Vitamin K Antagonist (VKA) Therapeutic Range: INR 2 to 3 (Target INR of 2.5) Note: For patients treated with VKA drugs, such as warfarin, the [employer] 2012 Guideline recommends a therapeutic INR range of 2 to 3 (target INR of 2.5). This recommendation includes high-risk patients with antiphospholipid syndrome with previous arterial or venous thromboembolism, current-generation mechanical or bioprosthetic aortic heart valve replacement. Note: Patients with mechanical aortic valve replacement and additional risk factors for thromboembolic events (atrial fibrillation, previous thromboembolism, LV dysfunction, hypercoagulable conditions) or an older generation mechanical AVR (i.e., ball in-Cage) or any mechanical MVR should have a INR therapeutic range of 2.5 to 3.5 (target INR of 3). Suleiman KENNEDY, et al. Chest 2012, 141:7S-47S Celina RA, et al. [facility] 2017, 70: 252-289 Performed By: #### CBC, FIBCT, PT, PTT, CMP, CHARLENE #### [facility] [employer] [address] [place], [place] [address] APTT Collected: 05/23/2018 Status: F Source: [place] 2:[address] [facility] REPOSITORY TYPE CODE TESTS RESULT OUT OF RANGE REFERENCE UNITS LAB APTT 23.0-32.4 sec APTT 28.8 Result Comment: Unfractionated Heparin Therapeutic Ranges: Standard Heparin Nomogram: 53 to 78 seconds (anti-Xa level of 0.3 to 0.7 U/ml) Low Dose/ACS Nomogram: 49 to 67 seconds (anti-Xa level of 0.2 to 0.5 U/ml) Stroke Treatment Nomogram: 49 to 67 seconds (anti-Xa level of 0.2 to 0.5 U/ml) Note: The APTT therapeutic range has been determined for the current lot of laboratory APTT reagent in use throughout the [facility]. Performed By: #### CBC, FIBCT, PT, PTT, CMP, CHARLENE #### [facility] [address] [place], [place] [address] COMP METABOLIC PANEL Collected: 05/23/2018 Status: F Source: [place] 2:15 AM [facility] REPOSITORY TYPE CODE TESTS RESULT OUT OF REFERENCE UNITS RANGE LAB TP 6.3-8.0 g/dL Low Protein, Total 5.2 LAB ALB 3.9-4.9 g/dL Low Albumin 3.6 LAB CA 8.5-10.2 mg/dL Low Calcium, Total 8.4 LAB TBIL 0.2-1.3 mg/dL Bilirubin, Total 0.5 LAB ALKP 38-113 U/L Alkaline Phosphatase 40 LAB AST 14-40 U/L AST High 42 LAB GLU 74-99 mg/dL Glucose High 151 Result Comment: The [place] [employer] (ADA) provides guidance for cutoff values for fasting glucose and random glucose. The ADA defines fasting as no caloric intake for at least 8 hours. Fas ting plasma glucose results between 100 to 125 mg/dL indicate increased risk for diabetes (prediabetes). Fasting plasma glucose results greater than or equal to 126 mg/dL meet the criteria for diagnosis of diabetes. In the absence of unequivocal hyperglycemia, results should be confirmed by repeat testing. In a patient with classic symptoms of hyperglycemia or hyperglycemic crisis, random plasma glucose results greater than or equal to 200 mg/dL meet the criteria for diagnosis of diabetes. Reference: Standards of Medical Care in Diabetes 2016, [place] [employer]. Diabetes Care. 2016.39(Suppl 1). LAB BUN 9-24 mg/dL BUN 16 LAB CRET 0.73-1.22 mg/dL Creatinine 1.01 LAB NA 136-144 mmol/L Sodium 138 LAB K 3.7-5.1 mmol/L Potassium 4.6 LAB CL 97-105 mmol/L Chloride 103 LAB CO2 22-30 mmol/L CO2 23 LAB AGAP 9-18 mmol/L Anion Gap 12 LAB ALT 10-54 U/L ALT 19 LAB GFRAA eGFR- Amer. >60 LAB GFRNAA . eGFR-All Other Races >60 Result Comment: eGFR (Estimated GFR) Units of measure: mL/min/1.73 meters squared eGFR is derived from the reexpressed MDRD Study equation using the following parameters: serum creatinine, age, gender and race. The creatinine assay has been calibrated to be traceable to IDIN. An eGFR <60 mL/min/1.73m2 for >3 months is consistent with chronic kidney disease. Refer to KDOQI guidelines for clinical interpretation. In patients with unstable renal function, e.g. those with acute kidney injury, the eGFR may not accurately reflect actual GFR. Performed By: #### CBC, FIBCT, PT, PTT, CMP, CHARLENE #### [facility] [employer] [address] [place], [place] [address] TROPONIN T Collected: 05/23/2018 Status: F Source: [place] 2:[address] [facility] REPOSITORY TYPE CODE TESTS RESULT OUT OF REFERENCE UNITS RANGE LAB TROPT 0.000-0.029 ng/mL High Troponin T 0.612 Result Comment: Called to and read back by: Lluvia George RN J64 05/23/2018 0344 by Jose Otto. Performed By: #### CBC, FIBCT, PT, PTT, CMP, CHARLENE #### [facility] [employer] [address] [place], [place] [address] GASA + ALL Collected: 05/23/2018 Status: F Source: [place] FOR 12:[address] [facility] USE ONLY REPOSITORY TYPE CODE TESTS RESULT OUT OF REFERENCE UNITS RANGE LAB PH 7.35-7.45 pH 7.35 LAB PCO2 34-46 mm Hg pCO2 38 LAB PO2 85-95 mm Hg pO2 High 131 LAB BE mmol/L Base Excess NEG 4 LAB HCO3 22-26 mmol/L Bicarbonate Low 21 LAB CO2CT 22.0-28.0 mmol/L CO2 Content 22 LAB O2HB 95-98 % Oxyhemoglobin, Art. 97 LAB COHB 0-5.0 % Carboxyhemoglobin,A 0.9 rt LAB MHGB 0.4-1.5 % Methemoglobin 1.1 LAB TEMP C Temperature, Body 37.0 LAB PHTC 7.35-7.45 pH, Temp Corrected 7.35 LAB PCO2T 34-46 mm Hg pCO2, Temp Correct 38 LAB PO2T mm Hg pO2, Temp Corrected 131 LAB NAB 135-146 mmol/L Sodium,Whole Bld 136 LAB KWB 3.5-5.0 mmol/L Potassium, Whole Bld 4.5 LAB HGBB 13.0-17.0 g/dL Low Hemoglobin,Total,AC 9.0 L LAB HCTB 39.0-51.0 % Hematocrit, ACL Low 28 LAB IC 1.08-1.30 mmol/L Calcium, Ion, WB 1.18 LAB GLB 60-105 mg/dL Glucose,Whole Bld High 183 LAB LACT 0.5-2.2 mmol/L Lactate High 2.8 Performed By: #### ALLBG #### [facility] [address] [place], [place] [address] GASV + ALL Collected: 05/23/2018 Status: F Source: [place] 12:[address] [facility] REPOSITORY TYPE CODE TESTS RESULT OUT OF REFERENCE UNITS RANGE LAB VPH 7.32-7.42 pH Low 7.30 LAB VPC2 42-55 mm Hg pCO2 45 LAB VPO2 35-45 mm Hg pO2 42 LAB VBE mmol/L Base Excess NEG 4 LAB VHC3 24-28 mmol/L Bicarbonate Low 22 LAB VC2C 25-29 mmol/L CO2 Content Low 23 LAB O2HBCX 60-85 % Oxyhemoglobin, Evelio. 72 LAB CO <2.0 % Carboxyhemoglobin,V 0.9 en LAB METHB 0.4-1.5 % Methemoglobin 1.3 LAB VTMP C Temperature, Body 37.0 LAB VPHTC 7.32-7.42 pH, Temp Low Corrected 7.30 LAB VPC2T mm Hg pCO2, Temp Correct 45 LAB VPO2T mm Hg pO2, Temp Corrected 42 LAB NAB 135-146 mmol/L Sodium,Whole Bld 136 LAB KWB 3.5-5.0 mmol/L Potassium, Whole Bld 4.2 LAB HGBB 13.0-17.0 g/dL Low Hemoglobin,Total,AC 9.0 L LAB HCTB 39.0-51.0 % Hematocrit, ACL Low 28 LAB IC 1.08-1.30 mmol/L Calcium, Ion, WB 1.20 LAB GLB 60-105 mg/dL Glucose,Whole Bld High 180 LAB LACT 0.5-2.2 mmol/L Lactate High 2.8 Performed By: #### VALLBG #### [facility] [employer] [address] [place], [place] [address] CBC Collected: 05/22/2018 Status: F Source: [place] 10:[address] [facility] REPOSITORY TYPE CODE TESTS RESULT OUT OF REFERENCE UNITS RANGE LAB WBC 3.70-11.00 k/uL WBC High 11.13 LAB RBC 4.20-6.00 m/uL Low RBC 2.48 LAB HGB 13.0-17.0 g/dL Low Hemoglobin 7.8 LAB HCT 39.0-51.0 % Low Hematocrit 24.1 LAB MCV 80.0-100.0 fL MCV 97.2 LAB MCH 26.0-34.0 pG MCH 31.5 LAB MCHC 30.5-36.0 g/dL MCHC 32.4 LAB RDWCV 11.5-15.0 % RDW-CV 13.3 LAB PLTCT 150-400 k/uL Low Platelet Count 147 LAB MPV 9.0-12.7 fL MPV 9.2 LAB ABSNUC <0.01 k/uL Absolute nRBC <0.01 Performed By: #### CBC, FIBCT, PT, PTT #### [facility] [employer] [address] [place], [place] [address] FIBRINOGEN Collected: 05/22/2018 Status: F Source: [place] 10:[address] [facility] REPOSITORY TYPE CODE TESTS RESULT OUT OF REFERENCE UNITS RANGE LAB FIBCT 200-400 mg/dL Low Fibrinogen 157 Performed By: #### CBC, FIBCT, PT, PTT #### [facility] [address] [place], [place] [address] PROTIME Collected: 05/22/2018 Status: F Source: [place] 10:[address] [facility] REPOSITORY TYPE CODE TESTS RESULT OUT OF RANGE REFERENCE UNITS LAB PSEC 9.7-13.0 sec High PT Sec 13.6 LAB INR 0.9-1.3 PT INR 1.3 Result Comment: Vitamin K Antagonist (VKA) Therapeutic Range: INR 2 to 3 (Target INR of 2.5) Note: For patients treated with VKA drugs, such as warfarin, the [place] [employer] 2012 Guideline recommends a therapeutic INR range of 2 to 3 (target INR of 2.5). This recommendation includes high-risk patients with antiphospholipid syndrome with previous arterial or venous thromboembolism, current-generation mechanical or bioprosthetic aortic heart valve replacement. Note: Patients with mechanical aortic valve replacement and additional risk factors for thromboembolic events (atrial fibrillation, previous thromboembolism, LV dysfunction, hypercoagulable conditions) or an older generation mechanical AVR (i.e., ball in-Cage) or any mechanical MVR should have a INR therapeutic range of 2.5 to 3.5 (target INR of 3). Suleiman KENNEDY, et al. Chest 2012, 141:7S-47S Celina RA, et al. [facility] 2017, 70: 252-289 Performed By: #### CBC, FIBCT, PT, PTT #### [facility] [employer] [address] [place], [place] [address] APTT Collected: 05/22/2018 Status: F Source: [place] 10:[address] [facility] REPOSITORY TYPE CODE TESTS RESULT OUT OF RANGE REFERENCE UNITS LAB APTT 23.0-32.4 sec APTT 31.4 Result Comment: Unfractionated Heparin Therapeutic Ranges: Standard Heparin Nomogram: 53 to 78 seconds (anti-Xa level of 0.3 to 0.7 U/ml) Low Dose/ACS Nomogram: 49 to 67 seconds (anti-Xa level of 0.2 to 0.5 U/ml) Stroke Treatment Nomogram: 49 to 67 seconds (anti-Xa level of 0.2 to 0.5 U/ml) Note: The APTT therapeutic range has been determined for the current lot of laboratory APTT reagent in use throughout the [facility]. Performed By: #### CBC, FIBCT, PT, PTT #### [facility] [employer] [address] [place], [place] [address] GASA + ALL Collected: 05/22/2018 Status: F Source: [place] FOR 10:[address] [facility] USE ONLY REPOSITORY TYPE CODE TESTS RESULT OUT OF REFERENCE UNITS RANGE LAB PH 7.35-7.45 pH 7.36 LAB PCO2 34-46 mm Hg pCO2 39 LAB PO2 85-95 mm Hg pO2 High 125 LAB BE mmol/L Base Excess NEG 3 LAB HCO3 22-26 mmol/L Bicarbonate 22 LAB CO2CT 22.0-28.0 mmol/L CO2 Content 23 LAB O2HB 95-98 % Oxyhemoglobin, Art. 98 LAB COHB 0-5.0 % Carboxyhemoglobin,A 0.5 rt LAB MHGB 0.4-1.5 % Methemoglobin 0.6 LAB TEMP C Temperature, Body 37.0 LAB PHTC 7.35-7.45 pH, Temp Corrected 7.36 LAB PCO2T 34-46 mm Hg pCO2, Temp Correct 39 LAB PO2T mm Hg pO2, Temp Corrected 125 LAB NAB 135-146 mmol/L Sodium,Whole Bld 136 LAB KWB 3.5-5.0 mmol/L Potassium, Whole Bld 4.5 LAB HGBB 13.0-17.0 g/dL Low Hemoglobin,Total,AC 8.1 L LAB HCTB 39.0-51.0 % Hematocrit, ACL Low 25 LAB IC 1.08-1.30 mmol/L Calcium, Ion, WB 1.28 LAB GLB 60-105 mg/dL Glucose,Whole Bld High 214 LAB LACT 0.5-2.2 mmol/L Lactate High 2.4 Performed By: #### ALLBG #### [facility] [address] [place], [place] [address] GASV + ALL Collected: 05/22/2018 Status: F Source: [place] 7:46 PM [facility] REPOSITORY TYPE CODE TESTS RESULT OUT OF REFERENCE UNITS RANGE LAB VPH 7.32-7.42 pH 7.33 LAB VPC2 42-55 mm Hg pCO2 43 LAB VPO2 35-45 mm Hg pO2 40 LAB VBE mmol/L Base Excess NEG 3 LAB VHC3 24-28 mmol/L Bicarbonate Low 22 LAB VC2C 25-29 mmol/L CO2 Content Low 23 LAB O2HBCX 60-85 % Oxyhemoglobin, Evelio. 67 LAB CO <2.0 % Carboxyhemoglobin,V 1.1 en LAB METHB 0.4-1.5 % Methemoglobin 0.8 LAB VTMP C Temperature, Body 37.0 LAB VPHTC 7.32-7.42 pH, Temp Corrected 7.33 LAB VPC2T mm Hg pCO2, Temp Correct 43 LAB VPO2T mm Hg pO2, Temp Corrected 40 LAB NAB 135-146 mmol/L Sodium,Whole Bld 136 LAB KWB 3.5-5.0 mmol/L Potassium, Whole Bld 4.4 LAB HGBB 13.0-17.0 g/dL Low Hemoglobin,Total,AC 8.4 L LAB HCTB 39.0-51.0 % Hematocrit, ACL Low 26 LAB IC 1.08-1.30 mmol/L Calcium, Ion, WB 1.15 LAB GLB 60-105 mg/dL Glucose,Whole Bld High 175 LAB LACT 0.5-2.2 mmol/L Lactate 1.6 Performed By: #### VALLBG #### [facility] [employer] [address] [place], [place] [address] STAPH AUREUS PCR Collected: 05/22/2018 Status: F Source: [place] 6:[address] [facility] REPOSITORY TYPE CODE TESTS RESULT OUT OF REFERENCE UNITS RANGE LAB SASRC Nasal S aureus Spec Source LAB MRSRES Negative for MRSA MRSA by PCR. PCR LAB SARES Negative for Staph Staphylococcus aureus PCR aureus by PCR. Performed By: #### SAPCR #### [facility] [employer] [address] [place], [place] [address] GASA + ALL Collected: 05/22/2018 Status: F Source: [place] FOR 6:[address] [facility] RADI[facility] USE ONLY REPOSITORY TYPE CODE TESTS RESULT OUT OF REFERENCE UNITS RANGE LAB PH 7.35-7.45 pH 7.36 LAB PCO2 34-46 mm Hg pCO2 38 LAB PO2 85-95 mm Hg pO2 High 106 LAB BE mmol/L Base Excess NEG 4 LAB HCO3 22-26 mmol/L Bicarbonate Low 21 LAB CO2CT 22.0-28.0 mmol/L CO2 Content 22 LAB O2HB 95-98 % Oxyhemoglobin, Art. 97 LAB COHB 0-5.0 % Carboxyhemoglobin,A 0.3 rt LAB MHGB 0.4-1.5 % Methemoglobin Low 0.2 LAB TEMP C Temperature, Body 37.0 LAB PHTC 7.35-7.45 pH, Temp Corrected 7.36 LAB PCO2T 34-46 mm Hg pCO2, Temp Correct 38 LAB PO2T mm Hg pO2, Temp Corrected 106 LAB NAB 135-146 mmol/L Sodium,Whole Bld 135 LAB KWB 3.5-5.0 mmol/L Potassium, Whole Bld 4.7 LAB HGBB 13.0-17.0 g/dL Low Hemoglobin,Total,AC 9.5 L LAB HCTB 39.0-51.0 % Hematocrit, ACL Low 29 LAB IC 1.08-1.30 mmol/L Calcium, Ion, WB Low 1.07 LAB GLB 60-105 mg/dL Glucose,Whole Bld High 164 LAB LACT 0.5-2.2 mmol/L Lactate 1.5 Performed By: #### ALLBG #### [facility] [address] [place], [place] [address] ANES POST Observed: 05/22/2018 Status: COMPLETED Source: [place] 6:[address] [facility] REPOSITORY HNO ID: [id number] Author: Timi Moore Service: Anesthesiology Author Type: Anesthesiologist Type: Anesthesia PostOp Filed: 05/22/2018 6:17 PM Note Text: POST ANESTHESIA EVALUATION NOTE SERVICE DATE: 05/22/2018 SERVICE TIME: 6:16 PM : 1941 Vitals: 05/22/18 0547 Temp: 36 ?C (96.8 ?F) 05/22/18 1720 05/22/18 1740 05/22/18 1748 05/22/18 1800 Arterial BP 1: 123/55 126/56 136/60 128/61 BP: 05/22/18 1720 05/22/18 1740 05/22/18 1748 05/22/18 1800 Pulse: 80 83 91 92 05/22/18 1720 05/22/18 1740 05/22/18 1748 05/22/18 1800 Resp: 16 17 16 17 05/22/18 1720 05/22/18 1740 05/22/18 1748 05/22/18 1800 SpO2: 99% 99% 100% 100% Validated Vital Signs: Yes POST ANES STATUS: PACU/ICU Patient Condition: Stable Neurological Status: On intravenous sedation. Pulmonary Status: On invasive mechanical ventilation. Airway Control: Intubated on mechanical ventilation. Cardiovascular Status: Stable Pain: Adequately controlled Postoperative Nausea/Vomiting: No significant post operative nausea or vomiting Postoperative Hydration Status: Adequate. Intra-Operative Events: No Significant Anesthesia Events Anesthetic Complications: None Recommendation: Continue current plan of care Other Remarks: SIGNATURE: Timi Moore MD PATIENT NAME: Maciej Crowder DATE: May 22, 2018 TIME: 6:16 PM PAGER/CONTACT #: [email or web address] + ALL Collected: 05/22/2018 Status: F Source: [place] 5:[address] [facility] REPOSITORY TYPE CODE TESTS RESULT OUT OF REFERENCE UNITS RANGE LAB VPH 7.32-7.42 pH Low 7.29 LAB VPC2 42-55 mm Hg pCO2 48 LAB VPO2 35-45 mm Hg pO2 36 LAB VBE mmol/L Base Excess NEG 4 LAB VHC3 24-28 mmol/L Bicarbonate Low 22 LAB VC2C 25-29 mmol/L CO2 Content Low 24 LAB O2HBCX 60-85 % Oxyhemoglobin, Low Evelio. 56 LAB CO <2.0 % Carboxyhemoglobin,V 1.0 en LAB METHB 0.4-1.5 % Methemoglobin 0.9 LAB VTMP C Temperature, Body 37.0 LAB VPHTC 7.32-7.42 pH, Temp Low Corrected 7.29 LAB VPC2T mm Hg pCO2, Temp Correct 48 LAB VPO2T mm Hg pO2, Temp Corrected 36 LAB NAB 135-146 mmol/L Sodium,Whole Bld 135 LAB KWB 3.5-5.0 mmol/L Potassium, Whole Bld 4.6 LAB HGBB 13.0-17.0 g/dL Low Hemoglobin,Total,AC 10.3 L LAB HCTB 39.0-51.0 % Hematocrit, ACL Low 32 LAB IC 1.08-1.30 mmol/L Calcium, Ion, WB 1.13 LAB GLB 60-105 mg/dL Glucose,Whole Bld High 165 LAB LACT 0.5-2.2 mmol/L Lactate 1.7 Performed By: #### VALLBG #### [facility] [address] [place], [place] [address] GASA + ALL Collected: 05/22/2018 Status: F Source: [place] FOR 5:[address] [facility] RADIANCE USE ONLY REPOSITORY TYPE CODE TESTS RESULT OUT OF REFERENCE UNITS RANGE LAB PH 7.35-7.45 pH Low 7.34 LAB PCO2 34-46 mm Hg pCO2 40 LAB PO2 85-95 mm Hg pO2 High 130 LAB BE mmol/L Base Excess NEG 4 LAB HCO3 22-26 mmol/L Bicarbonate Low 21 LAB CO2CT 22.0-28.0 mmol/L CO2 Content 22 LAB O2HB 95-98 % Oxyhemoglobin, Art. 97 LAB COHB 0-5.0 % Carboxyhemoglobin,A 1.0 rt LAB MHGB 0.4-1.5 % Methemoglobin 0.8 LAB TEMP C Temperature, Body 37.0 LAB PHTC 7.35-7.45 pH, Temp Low Corrected 7.34 LAB PCO2T 34-46 mm Hg pCO2, Temp Correct 40 LAB PO2T mm Hg pO2, Temp Corrected 130 LAB NAB 135-146 mmol/L Sodium,Whole Bld 135 LAB KWB 3.5-5.0 mmol/L Potassium, Whole Bld 4.7 LAB HGBB 13.0-17.0 g/dL Low Hemoglobin,Total,AC 10.5 L LAB HCTB 39.0-51.0 % Hematocrit, ACL Low 32 LAB IC 1.08-1.30 mmol/L Calcium, Ion, WB 1.15 LAB GLB 60-105 mg/dL Glucose,Whole Bld High 169 LAB LACT 0.5-2.2 mmol/L Lactate 1.8 Performed By: #### ALLBG #### [facility] [address] [place], [place] [address] XR CHEST 1V FRONTAL Observed: 05/22/2018 Status: F Source: [facility] 5:08 PM [facility] REPOSITORY * * *Final Report* * * DATE OF EXAM: May 22 2018 5:08PM JIX [id number] - XR CHEST 1V FRONTAL PORT / PROCEDURE REASON: Post-operative / post-procedure assessment, asymptomatic * * * * Physician Interpretation * * * * EXAMINATION: CHEST RADIOGRAPH (PORTABLE SINGLE VIEW AP) Exam Date/Time: 05/22/2018 5:08 PM Clinical History: Post-operative / post-procedure assessment, asymptomatic, MQ: [id number] Comparison: 04/15/2018 RESULT: See impression. IMPRESSION: Lines, tubes, and devices: Interval median sternotomy for aVR. Support devices are unremarkable except for low placement of ET tube which terminates at the level of the donaldo. Lungs and pleura: Lower lung volume on the current exam with increase of haziness at the bases, suggesting atelectasis. Superimposed edema or inflammation cannot be excluded. Underlying small pleural effusions versus pleural thickening remain. Cardiomediastinal silhouette: Stable cardiomediastinal silhouette. Other: . Laminating Machine Tender: MILLY Transcribe Date/Time: May 22 2018 5:14P Dictated by : PEDRO SALGUERO MD This examination was interpreted and the report reviewed and electronically signed by: PEDRO SALGUERO MD on May 22 2018 5:15PM EST [id number] PROGRESS Observed: 05/22/2018 Status: COMPLETED Source: [place] 4:[address] [facility] REPOSITORY HNO ID: [id number] Author: Princess Villatoro ([facility]) [place] Service: Critical Care Author Type: Nurse Practitioner Type: Progress Notes Filed: 05/22/2018 4:54 PM Note Text: [facility] Admission Note Name: Maciej Crowder Indication for Surgery: Severe , CAD Preop LVEF: 45% RVF: Normal Postop LVEF: 50% RVF: Normal Important/Relevant PMH/PSH: mild asthma, diverticulosis. Work accident with rib fractures AND pneumothorax. Family hx of Malignant Hyperthermia. Preoperative Hospital Course: Elective Surgery Airway Difficulty: Grade I - No special instrumentation Pacing Wires: Yes: Atrial and Ventricular: When discontinuing pacing wires: Cut A/Pull V pacing wires Chronological List of Surgeries and Major Events (Diagnosis): (Surgeries in bold characters) 05/22/2018: CABG x3, ROSA-LAD, SVG-OM1, SVG-PDA, AVR # 25 CE; OR course with coagulopathy treated with platelets. A/P of Major Active Problems (excluding routine care and common problems): Cardiac: Junctional: Apaced for hemodynamic support Hypotension: norepinephrine for maps >65 Cardiac insufficiency: epinephrine for CI > 2.3 To Do or to Watch: Monitor for bleeding WTE Discharge Planning: Anticipated Discharge Date: Unknown Barriers to Discharge: Unknown Care Management Discharge Needs: Additional Hospital Problems Problem Coronary Artery Disease Involving [place] Coronary Artery 05/22/2018 - CABG x3, ROSA-LAD, SVG-OM1, SVG-PDA Severe Aortic Stenosis Severe . 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 Mcclure, 09/29/14 Spirometry: [id number], 1.45 L/s, 65% pred. +41% post BD 08/09/15 Gabe: 109 (normal < 25). 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 Encourage oxy IR for BTP. Goal pain score <4. Stress Hyperglycemia A/p -Perioperative insulin resistance and exacerbation of hyperglycemia; titrate RHI infusion for glycemic control. Discharge Planning Issues AMBULATORY PATIENT EDUCATION READINESS TO LEARN Cognitive Ability: Alert and oriented Motivation To Learn: Interested Family Support: High - Very involved in pt care Instruction Provided To: Patient AND Family Patient Learns Best By: Multiple Methods Factors Affecting Learning: None Physical Limitations Affecting Learning: None LEARNING RESPONSE Diagnosis: Education Topic: Pre-Op Open Heart Surgery Instructions Teaching Points: Logistics / Protocols /Complication Prevention Instruction/Supplemental Materials: Cardiac Surgery Information Binder Individual Instruction Patient/Family Response: Verbalizes understanding Follow up plan: Patient/Family to call [facility] with any further questions Referral (Recommendation): None Teach completed, topic: Instructions for Bactroban, Hibiclens, and Listerine. Patient will be called with time of surgery. Infusions: Epinephrine Insulin Norepinephrine Propofol CVICU Admission ECG: Reviewed junctional CVICU Admission CXR: Reviewed Neuro: Sedation. Cardiovascular: Rhythm: regular rate and rhythm and Rate:junctional rhythm / junctional tachycardia, paced MAP: 76 mmHg Cardiac Index: 2 L/min/m2 Pacemaker: Temporary Epicardial - Pacing Mode: OFF ICD: No Peripheral pulses present: All present Pulmonary: Clear to auscultation and Breath sounds equal Ventilator: Intubated Potential prolonged intubation: No Abdominal: Soft Continued need for urinary catheter: Yes - clinical indication: Patient post major surgery requiring fluid balance and input and output measurement. DAY OF SURGERY PLAN: Standard Protocol, intubated patient: Cardiovascular monitoring, stabilization of blood pressure and cardiac function, wean to extubate when ready per protocol. Pain control, glycemic control, DVT prophylaxis, antibiotic prophylaxis. This patient has a high probability of sudden, clinically significant deterioration, which requires the highest level of preparedness to intervene urgently. I participated in the decision making and personally managed or directed the plan of care, including the following medical problems that required my frequent assessment to treat or prevent imminent deterioration: Problem Coronary Artery Disease Involving [place] Coronary Artery Severe Aortic Stenosis Moderate Persistent Asthma Without Complication Postprocedural Hypotension Acute On Chronic Systolic Heart Failure (Hcc) Post-Operative Pain Stress Hyperglycemia Discharge Planning Issues I personally spent 41 minutes of critical care time treating the patient. Time devoted to teaching and to any procedures I billed separately is not included. SIGNATURE: Princess Bañuelos APRN.CNP DATE of SERVICE: 05/22/2018 TIME of SERVICE: 4:12 PM GASA + ALL Collected: 05/22/2018 Status: F Source: [place] FOR 4:06 PM [facility] USE ONLY REPOSITORY TYPE CODE TESTS RESULT OUT OF REFERENCE UNITS RANGE LAB PH 7.35-7.45 pH Low 7.33 LAB PCO2 34-46 mm Hg pCO2 43 LAB PO2 85-95 mm Hg pO2 85 LAB BE mmol/L Base Excess NEG 3 LAB HCO3 22-26 mmol/L Bicarbonate 22 LAB CO2CT 22.0-28.0 mmol/L CO2 Content 24 LAB O2HB 95-98 % Oxyhemoglobin, Art. 95 LAB COHB 0-5.0 % Carboxyhemoglobin,A 0.6 rt LAB MHGB 0.4-1.5 % Methemoglobin Low 0.2 LAB TEMP C Temperature, Body 37.0 LAB PHTC 7.35-7.45 pH, Temp Low Corrected 7.33 LAB PCO2T 34-46 mm Hg pCO2, Temp Correct 43 LAB PO2T mm Hg pO2, Temp Corrected 85 LAB NAB 135-146 mmol/L Sodium,Whole Bld Low 134 LAB KWB 3.5-5.0 mmol/L Potassium, Whole Bld 4.5 LAB HGBB 13.0-17.0 g/dL Low Hemoglobin,Total,AC 10.2 L LAB HCTB 39.0-51.0 % Hematocrit, ACL Low 32 LAB IC 1.08-1.30 mmol/L Calcium, Ion, WB 1.10 LAB GLB 60-105 mg/dL Glucose,Whole Bld High 149 LAB LACT 0.5-2.2 mmol/L Lactate 1.4 Performed By: #### ALLBG #### [facility] [employer] [address] [place], [place] [address] CBC Collected: 05/22/2018 Status: F Source: [place] 3:[address] [facility] REPOSITORY TYPE CODE TESTS RESULT OUT OF REFERENCE UNITS RANGE LAB WBC 3.70-11.00 k/uL WBC High 14.66 LAB RBC 4.20-6.00 m/uL Low RBC 3.17 LAB HGB 13.0-17.0 g/dL Low Hemoglobin 10.1 LAB HCT 39.0-51.0 % Low Hematocrit 30.4 LAB MCV 80.0-100.0 fL MCV 95.9 LAB MCH 26.0-34.0 pG MCH 31.9 LAB MCHC 30.5-36.0 g/dL MCHC 33.2 LAB RDWCV 11.5-15.0 % RDW-CV 13.2 LAB PLTCT 150-400 k/uL Platelet Count 164 LAB MPV 9.0-12.7 fL MPV 9.3 LAB ABSNUC <0.01 k/uL Absolute High nRBC 0.02 Performed By: #### CBC, PTT, FIBCT, PT #### [facility] [employer] [address] [place], [place] [address] APTT Collected: 05/22/2018 Status: F Source: [place] 3:[address] [facility] REPOSITORY TYPE CODE TESTS RESULT OUT OF RANGE REFERENCE UNITS LAB APTT 23.0-32.4 sec APTT 29.8 Result Comment: Unfractionated Heparin Therapeutic Ranges: Standard Heparin Nomogram: 53 to 78 seconds (anti-Xa level of 0.3 to 0.7 U/ml) Low Dose/ACS Nomogram: 49 to 67 seconds (anti-Xa level of 0.2 to 0.5 U/ml) Stroke Treatment Nomogram: 49 to 67 seconds (anti-Xa level of 0.2 to 0.5 U/ml) Note: The APTT therapeutic range has been determined for the current lot of laboratory APTT reagent in use throughout the [facility]. Sample checked for a clot. Performed By: #### CBC, PTT, FIBCT, PT #### [facility] [employer] [address] [place] [id number] FIBRINOGEN Collected: 05/22/2018 Status: F Source: [place] 3[facility] [facility] [facility]ENTER REPOSITORY TYPE CODE TESTS RESULT OUT OF REFERENCE UNITS RANGE LAB FIBCT 200-400 mg/dL Fibrinogen 207 Result Comment: Sample checked for a clot. Performed By: #### CBC, PTT, FIBCT, PT #### [facility] [employer] [address] [id number] PROTIME Collected: 05/22/2018 Status: F Source: [place] 3:[address] [facility] REPOSITORY TYPE CODE TESTS RESULT OUT OF RANGE REFERENCE UNITS LAB PSEC 9.7-13.0 sec High PT Sec 14.0 Result Comment: Sample checked for a clot. LAB INR 0.9-1.3 High PT INR 1.4 Result Comment: Vitamin K Antagonist (VKA) Therapeutic Range: INR 2 to 3 (Target INR of 2.5) Note: For patients treated with VKA drugs, such as warfarin, the [employer] 2012 Guideline recommends a therapeutic INR range of 2 to 3 (target INR of 2.5). This recommendation includes high-risk patients with antiphospholipid syndrome with previous arterial or venous thromboembolism, current-generation mechanical or bioprosthetic aortic heart valve replacement. Note: Patients with mechanical aortic valve replacement and additional risk factors for thromboembolic events (atrial fibrillation, previous thromboembolism, LV dysfunction, hypercoagulable conditions) or an older generation mechanical AVR (i.e., ball in-Cage) or any mechanical MVR should have a INR therapeutic range of 2.5 to 3.5 (target INR of 3). Suleiman GH, et al. Chest 2012, 141:7S-47S Celina RA, et al. JACC 2017, 70: 252-289 Sample checked for a clot. Performed By: #### CBC, PTT, FIBCT, PT #### [facility] [employer] [address], [place] [address] ECG COMPLETE W Observed: 05/22/2018 Status: F Source: [place] INTERPRETATION 3:[address] [facility] REPOSITORY NAME : MACIEJ CROWDER PID : [id number] : 1940 Gender : Male Race : ORD : [id number] Procedure Date : May 22 2018 15:49:39 Edit Date : May 23 2018 23:03:52 Diagnosis:ACCELERATED JUNCTIONAL RHYTHM CANNOT EXCLUDE INFERIOR MYOCARDIAL INFARCTION , AGE UNDETERMINED ABNORMAL ECG Confirmed by NICCI GARCIA MD ([id number]) on 05/23/2018 11:03:47 PM Ventricular Rate : 69 BPM Atrial Rate : 104 BPM QRS Duration : 82 ms Q-T Interval : 416 ms QTC Calculation(Bezet) : 445 ms R Centerpoint : 39 degrees T Centerpoint : 31 degrees Test Reason : Location : 350 : [facility] Overread By : NICCI GARCIA MD Edited By : NICCI GARCIA MD Referred By : , Acquired by : [id number], BRIEF OP NOT Observed: 05/22/2018 Status: COMPLETED Source: [place] 3:16 PM [facility] REPOSITORY HNO ID: [id number] Author: Luis Thibodeaux Service: Thoracic Surgery Author Type: Physician Type: Brief Op Note Filed: 05/22/2018 3:17 PM Note Text: CARDIOTHORACIC BRIEF OP NOTE LOG ID: [id number] SURGERY/PROCEDURE DATE: 05/22/2018 INCISION/PROCEDURE START TIME: 8:19 AM INCISION CLOSE/PROCEDURE END TIME: SURGEON(S) AND DISK SHARPENER(S): Surgeon(s) and Role: * Rosales Urbina - Primary * Luis Thibodeaux - Assisting Registered Nurse Senior Research Executive: Chetan Christian (Rn) CHERI Gilman; Ángel Londono (Rn) CHERI BlairCIRCULATION TENDER AND ANESTHESIA: Procedure(s) and Anesthesia Type: * AVR W/ CARDIOPULMONARY BYPASS W/ PROSTHETIC OTHER THAN HOMOGRAFT/ STENTLESS TISSUE VALVE - General * BYPASS GRAFT ARTERY CORONARY ON-PUMP USING VENOUS GRAFT(S) AND ARTERIAL GRAFT(S) SINGLE VEIN GRAFT - General CABG x3, ROSA-LAD, SVG-OM1, SVG-PDA, AVR # 25 CE ANESTHESIA: General BRIEF FINDINGS: CAD, PREOPERATIVE DIAGNOSIS: aortic stenosis and coronary artery disease POSTOPERATIVE DIAGNOSIS: aortic stenosis and coronary artery disease ESTIMATED BLOOD LOSS: 250 ml SPECIMENS: None COMPLICATIONS: None SIGNATURE: Luis Thibodeaux MD PATIENT NAME: Maciej Crowder DATE: May 22, 2018 TIME: 3:16 PM PAGER/CONTACT #: [phone] GASA + ALL Collected: 05/22/2018 Status: F Source: [place] FOR 3:[address] [facility] [employer] USE ONLY REPOSITORY TYPE CODE TESTS RESULT OUT OF REFERENCE UNITS RANGE LAB PH 7.35-7.45 pH Low 7.30 LAB PCO2 34-46 mm Hg pCO2 44 LAB PO2 85-95 mm Hg pO2 High 132 LAB BE mmol/L Base Excess NEG 5 LAB HCO3 22-26 mmol/L Bicarbonate Low 21 LAB CO2CT 22.0-28.0 mmol/L CO2 Content 22 LAB O2HB 95-98 % Oxyhemoglobin, Art. 97 LAB COHB 0-5.0 % Carboxyhemoglobin,A 0.8 rt LAB MHGB 0.4-1.5 % Methemoglobin 1.0 LAB TEMP C Temperature, Body 37.0 LAB PHTC 7.35-7.45 pH, Temp Low Corrected 7.30 LAB PCO2T 34-46 mm Hg pCO2, Temp Correct 44 LAB PO2T mm Hg pO2, Temp Corrected 132 LAB NAB 135-146 mmol/L Sodium,Whole Bld 136 LAB KWB 3.5-5.0 mmol/L Potassium, Whole Bld 4.5 LAB HGBB 13.0-17.0 g/dL Low Hemoglobin,Total,AC 9.6 L LAB HCTB 39.0-51.0 % Hematocrit, ACL Low 30 LAB IC 1.08-1.30 mmol/L Calcium, Ion, WB Low 1.07 LAB GLB 60-105 mg/dL Glucose,Whole Bld High 144 LAB LACT 0.5-2.2 mmol/L Lactate 2.2 Performed By: #### ALLBG #### [facility] [address] [place], [place] [address] GASA + ALL Collected: 05/22/2018 Status: F Source: [place] FOR 2:[address] [facility] RADIANCE USE ONLY REPOSITORY TYPE CODE TESTS RESULT OUT OF REFERENCE UNITS RANGE LAB PH 7.35-7.45 pH Low 7.28 LAB PCO2 34-46 mm Hg pCO2 High 50 LAB PO2 85-95 mm Hg pO2 High 118 LAB BE mmol/L Base Excess NEG 4 LAB HCO3 22-26 mmol/L Bicarbonate 23 LAB CO2CT 22.0-28.0 mmol/L CO2 Content 24 LAB O2HB 95-98 % Oxyhemoglobin, Art. 96 LAB COHB 0-5.0 % Carboxyhemoglobin, 0.7 Art LAB MHGB 0.4-1.5 % Methemoglobin 0.9 LAB TEMP C Temperature, Body 37.0 LAB PHTC 7.35-7.45 pH, Temp Low Corrected 7.28 LAB PCO2T 34-46 mm Hg pCO2, Temp High Correct 50 LAB PO2T mm Hg pO2, Temp Corrected 118 LAB NAB 135-146 mmol/L Sodium,Whole Bld 136 LAB KWB 3.5-5.0 mmol/L Potassium, Whole Bld 3.8 LAB HGBB 13.0-17.0 g/dL Low Hemoglobin,Total,A 9.6 CL LAB HCTB 39.0-51.0 % Hematocrit, Low ACL 30 LAB IC 1.08-1.30 mmol/L Calcium, Ion, WB 1.08 LAB GLB 60-105 mg/dL Glucose,Whole High Bld 138 LAB LACT 0.5-2.2 mmol/L Lactate 1.9 LAB ACBDTE Notify Date, Art [id number] LAB ACBTME Notify Time, Art Performed By: #### ALLBG #### [facility] [address] [id number] GASA + ALL Collected: 05/22/2018 Status: F Source: [place] FOR 2:[address] [facility] [employer] USE ONLY REPOSITORY TYPE CODE TESTS RESULT OUT OF REFERENCE UNITS RANGE LAB PH 7.35-7.45 pH Low 7.24 LAB PCO2 34-46 mm Hg pCO2 High 55 LAB PO2 85-95 mm Hg pO2 High 104 LAB BE mmol/L Base Excess NEG 4 LAB HCO3 22-26 mmol/L Bicarbonate 23 LAB CO2CT 22.0-28.0 mmol/L CO2 Content 25 LAB O2HB 95-98 % Oxyhemoglobin, Art. 95 LAB COHB 0-5.0 % Carboxyhemoglobin, 0.5 Art LAB MHGB 0.4-1.5 % Methemoglobin 1.0 LAB TEMP C Temperature, Body 37.0 LAB PHTC 7.35-7.45 pH, Temp Low Corrected 7.24 LAB PCO2T 34-46 mm Hg pCO2, Temp High Correct 55 LAB PO2T mm Hg pO2, Temp Corrected 104 LAB NAB 135-146 mmol/L Sodium,Whole Bld 135 LAB KWB 3.5-5.0 mmol/L Potassium, Whole Bld 3.7 LAB HGBB 13.0-17.0 g/dL Low Hemoglobin,Total,A 9.9 CL LAB HCTB 39.0-51.0 % Hematocrit, Low ACL 31 LAB IC 1.08-1.30 mmol/L Calcium, Ion, WB 1.09 LAB GLB 60-105 mg/dL Glucose,Whole High Bld 138 LAB LACT 0.5-2.2 mmol/L Lactate 1.8 LAB ACBDTE Notify Date, Art [id number] LAB ACBTME Notify Time, Art Performed By: #### ALLBG #### [facility] [address] [place], [place] [address] GASA + ALL Collected: 05/22/2018 Status: F Source: [place] FOR 1:[address] [facility] RADI[facility] USE ONLY REPOSITORY TYPE CODE TESTS RESULT OUT OF REFERENCE UNITS RANGE LAB PH 7.35-7.45 pH High 7.48 LAB PCO2 34-46 mm Hg pCO2 34 LAB PO2 85-95 mm Hg pO2 High 368 LAB BE mmol/L Base Excess 2 LAB HCO3 22-26 mmol/L Bicarbonate 25 LAB CO2CT 22.0-28.0 mmol/L CO2 Content 26 LAB O2HB 95-98 % Oxyhemoglobin, High Art. 99 LAB COHB 0-5.0 % Carboxyhemoglobin,A 0.8 rt LAB MHGB 0.4-1.5 % Methemoglobin 0.6 LAB TEMP C Temperature, Body 37.0 LAB PHTC 7.35-7.45 pH, Temp High Corrected 7.48 LAB PCO2T 34-46 mm Hg pCO2, Temp Correct 34 LAB PO2T mm Hg pO2, Temp Corrected 368 LAB NAB 135-146 mmol/L Sodium,Whole Bld Low 133 LAB KWB 3.5-5.0 mmol/L Potassium, Whole Bld 4.4 LAB HGBB 13.0-17.0 g/dL Low Hemoglobin,Total,AC 9.2 L LAB HCTB 39.0-51.0 % Hematocrit, ACL Low 28 LAB IC 1.08-1.30 mmol/L Calcium, Ion, WB Low 1.05 LAB GLB 60-105 mg/dL Glucose,Whole Bld High 159 LAB LACT 0.5-2.2 mmol/L Lactate 1.2 Performed By: #### ALLBG #### [facility] [employer] [address] [place], [place] [address] GASA + ALL Collected: 05/22/2018 Status: F Source: [place] FOR 12:[address] [facility] RADI[employer] USE ONLY REPOSITORY TYPE CODE TESTS RESULT OUT OF REFERENCE UNITS RANGE LAB PH 7.35-7.45 pH High 7.47 LAB PCO2 34-46 mm Hg pCO2 35 LAB PO2 85-95 mm Hg pO2 High 262 LAB BE mmol/L Base Excess 2 LAB HCO3 22-26 mmol/L Bicarbonate 25 LAB CO2CT 22.0-28.0 mmol/L CO2 Content 26 LAB O2HB 95-98 % Oxyhemoglobin, Art. 98 LAB COHB 0-5.0 % Carboxyhemoglobin, 1.0 Art LAB MHGB 0.4-1.5 % Methemoglobin 0.7 LAB TEMP C Temperature, Body 37.0 LAB PHTC 7.35-7.45 pH, Temp High Corrected 7.47 LAB PCO2T 34-46 mm Hg pCO2, Temp Correct 35 LAB PO2T mm Hg pO2, Temp Corrected 262 LAB NAB 135-146 mmol/L Sodium,Whole Low Bld 133 LAB KWB 3.5-5.0 mmol/L Potassium, Whole Bld 4.5 LAB HGBB 13.0-17.0 g/dL Low Hemoglobin,Total,A 9.2 CL LAB HCTB 39.0-51.0 % Hematocrit, Low ACL 29 LAB IC 1.08-1.30 mmol/L Calcium, Ion, Low WB 1.06 LAB GLB 60-105 mg/dL Glucose,Whole High Bld 170 LAB LACT 0.5-2.2 mmol/L Lactate 1.2 LAB ACBDTE Notify Date, Art [id number] LAB ACBTME Notify Time, Art Performed By: #### ALLBG #### [facility] [employer] [address], [place] [address] GASA + ALL Collected: 05/22/2018 Status: F Source: [place] FOR 11:[address] [facility] RADI[employer] USE ONLY REPOSITORY TYPE CODE TESTS RESULT OUT OF REFERENCE UNITS RANGE LAB PH 7.35-7.45 pH High 7.48 LAB PCO2 34-46 mm Hg pCO2 34 LAB PO2 85-95 mm Hg pO2 High 282 LAB BE mmol/L Base Excess 2 LAB HCO3 22-26 mmol/L Bicarbonate 25 LAB CO2CT 22.0-28.0 mmol/L CO2 Content 26 LAB O2HB 95-98 % Oxyhemoglobin, High Art. 99 LAB COHB 0-5.0 % Carboxyhemoglobin, 1.2 Art LAB MHGB 0.4-1.5 % Methemoglobin Low 0.3 LAB TEMP C Temperature, Body 37.0 LAB PHTC 7.35-7.45 pH, Temp High Corrected 7.48 LAB PCO2T 34-46 mm Hg pCO2, Temp Correct 34 LAB PO2T mm Hg pO2, Temp Corrected 282 LAB NAB 135-146 mmol/L Sodium,Whole Low Bld 131 LAB KWB 3.5-5.0 mmol/L Potassium, Whole Bld 4.7 LAB HGBB 13.0-17.0 g/dL Low Hemoglobin,Total,A 9.0 CL LAB HCTB 39.0-51.0 % Hematocrit, Low ACL 28 LAB IC 1.08-1.30 mmol/L Calcium, Ion, Low WB 1.03 LAB GLB 60-105 mg/dL Glucose,Whole High Bld 159 LAB LACT 0.5-2.2 mmol/L Lactate 1.1 LAB ACBDTE Notify Date, Art [id number] LAB ACBTME Notify Time, Art Performed By: #### ALLBG #### [facility] [address] [place], [place] [address] GASA + ALL Collected: 05/22/2018 Status: F Source: [place] FOR 10:50 AM [facility] USE ONLY REPOSITORY TYPE CODE TESTS RESULT OUT OF REFERENCE UNITS RANGE LAB PH 7.35-7.45 pH 7.43 LAB PCO2 34-46 mm Hg pCO2 36 LAB PO2 85-95 mm Hg pO2 High 347 LAB BE mmol/L Base Excess NEG 1 LAB HCO3 22-26 mmol/L Bicarbonate 23 LAB CO2CT 22.0-28.0 mmol/L CO2 Content 24 LAB O2HB 95-98 % Oxyhemoglobin, High Art. 99 LAB COHB 0-5.0 % Carboxyhemoglobin,A 0.8 rt LAB MHGB 0.4-1.5 % Methemoglobin 0.5 LAB TEMP C Temperature, Body 37.0 LAB PHTC 7.35-7.45 pH, Temp Corrected 7.43 LAB PCO2T 34-46 mm Hg pCO2, Temp Correct 36 LAB PO2T mm Hg pO2, Temp Corrected 347 LAB NAB 135-146 mmol/L Sodium,Whole Bld Low 134 LAB KWB 3.5-5.0 mmol/L Potassium, Whole Bld 4.8 LAB HGBB 13.0-17.0 g/dL Low Hemoglobin,Total,AC 10.1 L LAB HCTB 39.0-51.0 % Hematocrit, ACL Low 31 LAB IC 1.08-1.30 mmol/L Calcium, Ion, WB Low 1.07 LAB GLB 60-105 mg/dL Glucose,Whole Bld High 151 LAB LACT 0.5-2.2 mmol/L Lactate 1.0 Performed By: #### ALLBG #### [facility] [address] [place], [place] [address] GASV + ALL Collected: 05/22/2018 Status: F Source: [place] 10:[address] [facility] REPOSITORY TYPE CODE TESTS RESULT OUT OF REFERENCE UNITS RANGE LAB VPH 7.32-7.42 pH 7.37 LAB VPC2 42-55 mm Hg pCO2 43 LAB VPO2 35-45 mm Hg pO2 High 67 LAB VBE mmol/L Base Excess NEG 1 LAB VHC3 24-28 mmol/L Bicarbonate 24 LAB VC2C 25-29 mmol/L CO2 Content 25 LAB O2HBCX 60-85 % Oxyhemoglobin, High Evelio. 91 LAB CO <2.0 % Carboxyhemoglobin,V 1.0 en LAB METHB 0.4-1.5 % Methemoglobin 0.5 LAB VTMP C Temperature, Body 37.0 LAB VPHTC 7.32-7.42 pH, Temp Corrected 7.37 LAB VPC2T mm Hg pCO2, Temp Correct 43 LAB VPO2T mm Hg pO2, Temp Corrected 67 LAB NAB 135-146 mmol/L Sodium,Whole Bld 135 LAB KWB 3.5-5.0 mmol/L Potassium, Whole Bld 4.8 LAB HGBB 13.0-17.0 g/dL Low Hemoglobin,Total,AC 10.0 L LAB HCTB 39.0-51.0 % Hematocrit, ACL Low 31 LAB IC 1.08-1.30 mmol/L Calcium, Ion, WB 1.10 LAB GLB 60-105 mg/dL Glucose,Whole Bld High 150 LAB LACT 0.5-2.2 mmol/L Lactate 1.0 Performed By: #### VALLBG #### [facility] [address], [place] [address] GASA + ALL Collected: 05/22/2018 Status: F Source: [place] FOR 9:[address] [facility] [employer] USE ONLY REPOSITORY TYPE CODE TESTS RESULT OUT OF REFERENCE UNITS RANGE LAB PH 7.35-7.45 pH Low 7.29 LAB PCO2 34-46 mm Hg pCO2 High 53 LAB PO2 85-95 mm Hg pO2 High 257 LAB BE mmol/L Base Excess NEG 2 LAB HCO3 22-26 mmol/L Bicarbonate 25 LAB CO2CT 22.0-28.0 mmol/L CO2 Content 26 LAB O2HB 95-98 % Oxyhemoglobin, Art. 98 LAB COHB 0-5.0 % Carboxyhemoglobin,A 0.1 rt LAB MHGB 0.4-1.5 % Methemoglobin 0.9 LAB TEMP C Temperature, Body 37.0 LAB PHTC 7.35-7.45 pH, Temp Low Corrected 7.29 LAB PCO2T 34-46 mm Hg pCO2, Temp High Correct 53 LAB PO2T mm Hg pO2, Temp Corrected 257 LAB NAB 135-146 mmol/L Sodium,Whole Bld 135 LAB KWB 3.5-5.0 mmol/L Potassium, Whole Bld 4.3 LAB HGBB 13.0-17.0 g/dL Low Hemoglobin,Total,AC 12.8 L LAB HCTB 39.0-51.0 % Hematocrit, ACL 39 LAB IC 1.08-1.30 mmol/L Calcium, Ion, WB 1.27 LAB GLB 60-105 mg/dL Glucose,Whole Bld High 111 LAB LACT 0.5-2.2 mmol/L Lactate 0.6 Performed By: #### ALLBG #### [facility] [address], [place] [address] GASA + ALL Collected: 05/22/2018 Status: F Source: [place] FOR 7:[address] [facility] [employer] USE ONLY REPOSITORY TYPE CODE TESTS RESULT OUT OF REFERENCE UNITS RANGE LAB PH 7.35-7.45 pH 7.45 LAB PCO2 34-46 mm Hg pCO2 Low 33 LAB PO2 85-95 mm Hg pO2 Low 70 LAB BE mmol/L Base Excess NEG 1 LAB HCO3 22-26 mmol/L Bicarbonate 22 LAB CO2CT 22.0-28.0 mmol/L CO2 Content 23 LAB O2HB 95-98 % Oxyhemoglobin, Low Art. 94 LAB COHB 0-5.0 % Carboxyhemoglobin, 1.2 Art LAB MHGB 0.4-1.5 % Methemoglobin 0.8 LAB TEMP C Temperature, Body 37.0 LAB PHTC 7.35-7.45 pH, Temp Corrected 7.45 LAB PCO2T 34-46 mm Hg pCO2, Temp Low Correct 33 LAB PO2T mm Hg pO2, Temp Corrected 70 LAB NAB 135-146 mmol/L Sodium,Whole Bld 136 LAB KWB 3.5-5.0 mmol/L Potassium, Whole Bld 3.8 LAB HGBB 13.0-17.0 g/dL Hemoglobin,Total,A 13.4 CL LAB HCTB 39.0-51.0 % Hematocrit, ACL 41 LAB IC 1.08-1.30 mmol/L Calcium, Ion, WB 1.21 LAB GLB 60-105 mg/dL Glucose,Whole Bld 102 LAB LACT 0.5-2.2 mmol/L Lactate 0.8 LAB ACBDTE Notify Date, Art [id number] LAB ACBTME Notify Time, Art [id number] Performed By: #### ALLBG #### [facility] [address] [place] [address] ALLIED [facility]ALTH Observed: 05/22/2018 Status: COMPLETED Source: [place] 7:[address] [facility] REPOSITORY HNO ID: [id number] Author: Chano (Chaplain Pabilto Service: Spiritual Care Author Type: Databases Computer Consultant Type: Allied Health Filed: 05/22/2018 7:12 AM Note Text: SPIRITUAL CARE Spiritual Care Visit Record Name: Maciej Crowder Date: May 22, 2018 Type of Visit: Preoperative Prayer/Visit Visit was with (pt, family, other) and name(s): Pt and 5 family members. Ministry Provided During Visit: Prayer / Meditation Spiritual Presence / Support Notes: Patient is Sikhism. Referrals: No referral made Will See: As Needed Only Follow-up Notes: Informed patient and family of Databases Computer Consultant availability and Healing Services Databases Computer Consultant Signature: Chaplain Toth M.Div., [facility] To contact the Spiritual Care Department: Please call [phone] or Page the On-Call Databases Computer Consultant at pager [phone] Thank you for the opportunity to be of service. This is an electronically created document. IF PRINTED, PLEASE DO NOT REMOVE FROM THE CHART OR MODIFY PRINTED COPY. OPERATIVE NO Observed: 05/22/2018 Status: COMPLETED Source: [place] 12:[address] [facility] REPOSITORY HNO ID: [id number] Author: Rsoales Urbina Service: Cardiovascular Surgery Author Type: Physician Type: Operative Report Filed: 05/23/2018 10:24 AM Note Text: [facility] - Cardiothoracic Operative Report [address] [address] [place] AMCIE[place] CROWDER : 1940 AGE: 78. SEX: M PATIENT TYPE: I HOSP SVC: ORCA LOCATION: [id number] ATTENDING PHYSICIAN: Rosales Urbina M.D. CSN NUMBER: [id number] DATE OF SURGERY/PROCEDURE: 05/22/2018 INCISION/PROCEDURE START TIME: 08:19 a.m. INCISION CLOSE/PROCEDURE END TIME: 03:16 p.m. MACHINE SAND MIXER was Chetan Gilman. PREOPERATIVE DIAGNOSIS: Severe coronary artery disease, severe calcific aortic stenosis. POSTOPERATIVE DIAGNOSIS: Severe coronary artery disease, severe calcific aortic stenosis. SURGEON: Rosales Urbina M.D. DISK SHARPENER: Dr. Thiboedaux. SURGERY/PROCEDURE: Median sternotomy, open heart, aortic valve replacement with 25 CE valve. Coronary artery bypass x3 with ROSA to LAD, reverse vein graft to obtuse marginal circumflex and PDA of the right coronary artery. ANESTHESIA: General INDICATION FOR PROCEDURE: This is a 78-year-old gentleman with a long history of coronary disease and severe aortic stenosis. The procedural risks of coronary artery bypass surgery, aortic valve replacement with tissue valve, cow valve were discussed with the patient and family, who understood and agreed to proceed. DESCRIPTION OF PROCEDURE: The patient was prepped and draped in the usual sterile fashion. A primary sternotomy incision was made. The sternum was split in the midline. The pericardium was opened in the midline and retracted laterally. The left internal thoracic artery was taken down as pedicle and the vein as an endoscopic harvesting procedure. The patient was fully heparinized. Ascending aorta cannulated with SVC and IVC caval cannula. The patient was placed on cardiopulmonary bypass as soon as ACT more than 500 seconds. After full heparinization, ascending aorta was cross-clamped. Antegrade and retrograde blood cardioplegia was administered. We reversed the vein graft to the PDA with running 7-0 Prolene running suture technique. Then, we did reverse saphenous vein graft to obtuse marginal circumflex with 7-0 Prolene running suture technique. Then, we did mid distal ROSA to LAD with 7-0 Prolene running suture technique. Then, we focused attention on the aortic valve. We opened the ascending aorta. We identified very trileaflet very calcified valve. We removed the calcium. We cleaned completely the aortic annulus. We put 2-0 Tycron stitches around the aortic annulus. We sized it with #25 CE valve. We used the valve, passed through the ring. The valve sutures were tied and cut. Then, we closed the aorta with 4-0 Prolene running suture technique. We did 2 proximal anastomoses of the vein graft with ascending aorta with 5-0 Prolene running suture technique. We de-aired the heart. Antegrade and retrograde hotshot blood cardioplegia was administrated. The aortic cross-clamp was released. We allowed for perfusion and came off the pump with satisfactory hemodynamics. Two chest tubes were placed, two mediastinal chest tubes were placed. Two Blakes were placed. Cannulae were removed. Protamine was given. Once we were satisfied with hemostasis and hemodynamics, chest was closed with interrupted wires and the remainder typical fashion. The patient tolerated very well the procedure, was transferred to the CVICU in stable condition. Echo showed the aortic valve well seated, no MR, no AI. No new wall motion abnormalities, same as before surgery. ESTIMATED BLOOD LOSS: 250. SPECIMENS: Aortic valve. DRAINS: 2 mediastinal, 2 chest tubes, 2 Blakes Rosales Urbina M.D. JN:[id number] /[id number] cc: SURGICAL PATHOLOGY Observed: 05/22/2018 Status: F Source: [place] 12:00 AM [facility] REPOSITORY Specimen originated from [facility] Specimen #: [id number] Submitting Physician: ROSALES URBINA M.D. ([id number]) FINAL DIAGNOSIS Aortic valve, excision - Severe calcification and severe fibrosis (gross diagnosis only). CDT/STACIE/jonatan 05/23/2018 Yoko Carmichael M.D. (Electronic Signature) SPECIMEN SUBMITTED A: AORTIC VALVE CLINICAL DATA CHF, HTN, EF 43%, SEVERE GROSS DESCRIPTION A. Received in formalin labeled aortic valve are three semilunar valve cusps measuring 1.8 to 3.4 cm in length along the free edge and 1.4 to 1.5 cm in width from free edge to base. There is no evidence of commissural fusion. Severe calcification and severe fibrosis are present. Lambl's excrescences are identified. No fenestrations, no vegetations, and no perforations are present. Also received are multiple fragments of fibrous tissue and calcified material aggregating to 3.5 x 1.5 x 1.0 cm. No sections are submitted. The specimen is shown to Dr. Carmichael. STACIE/jonatan 05/23/2018 Gross examination performed at [facility], [address] [place], [place] [id number] Date of Report: 05/23/2018 Date of Procedure: 05/22/2018 Date of Receipt: 05/22/2018 Submitted by: ROSALES URBINA M.D. ([id number]) Location: [id number] Diagnostic interpretation performed at [facility], [address] [place] [address], [facility] [address]. US THYROID/PARATHYROID Observed: 05/20/2018 Status: F Source: [place] 3:[address] [facility] REPOSITORY * * *Final Report* * * DATE OF EXAM: May 20 2018 3:59PM [facility] [place]48 - US THYROID/PARATHYROID / PROCEDURE REASON: multiple diagnoses * * * * Physician Interpretation * * * * EXAMINATION: THYROID ULTRASOUND HISTORY: Preoperative cardiac exam TECHNIQUE: Songraphy of the thyroid was performed. Images were obtained and stored in a permanent archive. COMPARISON: CT 04/15/2018 RESULT: Partially obscured due to substernal extension. RIGHT LOBE: 2.1 x 1.1 x 1.2 cm; homogeneous echogenicity, expected vascular flow LEFT LOBE: 4.0 x 1.1 x 1.3 cm; homogeneous echogenicity, expected vascular flow ISTHMUS: 0.5 cm Nodules: None IMPRESSION: THE THYROID IS PARTIALLY OBSCURED DUE TO SUBSTERNAL EXTENSION. VISUALIZED PORTION IS NORMAL ECHOGENICITY WITHOUT NODULES. Laminating Machine Tender: PSCB Transcribe Date/Time: May 20 2018 4:12P Dictated by : MARITZA JUSTICE MD This examination was interpreted and the report reviewed and electronically signed by: DIANE CAMARILLO MD on May 20 2018 4:27PM EST [id number] Observed: 05/20/2018 Status: COMPLETED Source: [place] 3:[address] [facility] REPOSITORY HNO ID: [id number] Author: Bijan Preciado MD (Fel) Service: (none) Author Type: Fellow Type: Progress Notes Filed: 05/20/2018 4:54 PM Note Text: [facility] EVALU[facility] CARDIOTHORACIC ANESTHESIA CARDIAC SURGERY SERVICE DATE: 05/20/2018 SERVICE TIME: 3:35 PM Proposed Surgical Procedure: CABG and Aortic Valve Surgery Re-do: No ASA Class: 4 Surgeon: Carlitos Surgery Date: 05/22/18 Last Wt 05/20/18 : 73 kg (161 lb) Last Ht 05/20/18 : 166.4 cm (5' 5.5) Estimated body mass index is 26.38 kg/m? as calculated from the following: Height as of an earlier encounter on 05/20/18: 166.4 cm (5' 5.5). Weight as of an earlier encounter on 05/20/18: 73 kg (161 lb). Estimated body surface area is 1.84 meters squared as calculated from the following: Height as of an earlier encounter on 05/20/18: 166.4 cm (5' 5.5). Weight as of an earlier encounter on 05/20/18: 73 kg (161 lb). 78yo male with hx of severe , CAD, mild asthma, diverticulosis going for AVR and CABG. Family hx of Malignant Hyperthermia. Pt reports his nephew had back surgery and developed malignant hyperthermia and was in a coma for a couple of weeks from which he recovered. He later from another complication but did have true MH reaction to anesthetic agent per family members. Family reports no one else in the family has had a reaction to general anesthesia and pt has had a general anesthetic for inguinal hernia repair in 2007 (at OSH unsure if this was using a non triggering anesthetic). Of note, pt has an enlarged thyroid gland, but no respiratory distress or dysphagia from this. No tracheal deviation noted on CXR. US of thyroid done today to assess further. Active Problems: * No active hospital problems. * Resolved Problems: * No resolved hospital problems. * PAST MEDICAL HISTORY Diagnosis Date - Aortic stenosis, moderate 08/09/2015 10/19/2014 echocardiogram. - Diverticulitis - Diverticulosis 09/18/2013 - Inguinal hernia without mention of obstruction or gangrene, unilateral or unspecified, (not specified as recurrent) - Moderate persistent asthma without complication 08/09/2015 09/29/14 Spirometry: [id number], 1.45 L/s, 65% pred. +41% post BD 08/09/15 Gabe: 109 (normal < 25). - Multiple fractures of ribs of both sides 2012 Work accident - Other specified type of hydrocele - Pneumothorax 2012 Work accident PAST SURGICAL HISTORY Procedure Laterality Date - REPAIR ING HERNIA,5+Y/O,REDUCIBL 04/19/08 FAMILY HISTORY Problem Relation Age of Onset - other (Negative) Other No asthma, allergy. Social History Substance Use Topics - Smoking status: Former Smoker Types: Cigars - Smokeless tobacco: Never Used Comment: Occasionally smoked cigars - Alcohol use No ALLERGIES Allergen Reactions - Lipitor [Atorvastat* Other: See Comments Chills and leg pain. REVIEW OF SYSTEMS: Neuro: no hx of seizures or stroke Respiratory: Asthma, Dyspnea Cardiovascular: Positive for: Anticoagulation therapy, HLD, Hypertension, Valvular Heart Disease GI: No history of GI symptoms or problems. No history of esophageal varices, recent ascites, or ETOH greater than 2 drinks per day. Endocrine: No history of diabetes. Has not taken steroids within the past 30 days. No history of endocrinological symptoms or problems. Hematology: Chronic anti-coagulation / platelet meds (Aspirin) CKD AND ANEMIA ASSESSMENT: Patient has both eGFR < 60 mL/min and a Hemoglobin < 11 g/dl: No if the patient is going on CPB. ANESTHETIC HISTORY: History of general anesthesia without complications. AIRWAY ASSESSMENT: Airway History: No abnormal airway history Airway Exam: General: Normal appearance Mallampati Score: CLASS II Temporo-Mandibular Displacement Test: Position B (lower teeth can be advanced even with upper teeth) Interincisor Distance: 4 cm Thyromental Distance: 6 cm Neck Circumference: 34 cm Overbite: No Cervical Mobility: Normal Facial Hair: Yes, Full Woods-Yes Head/Neck Pathology: No ANTICIPATED DIFFICULT AIRWAY: NO Pre-Existing Diagnosis of Obstructive Sleep Apnea: No, STOP BANG SCORE: Criteria = Criteria: Snoring Hypertension Age over 50 (78 year old) Male gender Score = 4, Score = 4 PHYSICAL EXAM: VITALS: There were no vitals taken for this visit. CARDIAC: Systolic murmur LUNGS: Lungs clear to auscultation. Good air entry bilaterally. Lines, Drains, Airway: Patient has no lines, drains or airway LABS: Lab Results Past 6 Months Component Value Date HB 13.6 04/15/2018 HCT 41.8 04/15/2018 PLT 290 04/15/2018 WBC 6.16 04/15/2018 NA 139 04/15/2018 K 4.6 04/15/2018 CREAT 1.03 04/15/2018 CA 9.6 04/15/2018 APTT 26.5 05/20/2018 INR 1.1 05/20/2018 Lab Results Past 6 Months Component Value Date GLUC 89 04/15/2018 K 4.6 04/15/2018 NA 139 04/15/2018 CHLOR 102 04/15/2018 CO2 25 04/15/2018 CREAT 1.03 04/15/2018 BUN 22 04/15/2018 ANION 12 04/15/2018 CA 9.6 04/15/2018 TPROT 7.3 04/15/2018 ALB 4.3 04/15/2018 TBILI 0.4 04/15/2018 ALKPHOS 94 04/15/2018 AST 22 04/15/2018 ALT 21 04/15/2018 ABO/RH(D) (no units) Date Value 05/20/2018 A POSITIVE Antibody Screen (no units) Date Value 05/20/2018 NEG Historical Ab Scr Status (no units) Date Value 05/20/2018 NEGATIVE Anticipated Blood Products Ordered: No blood product orders needed. Will the Patient Accept Blood: Yes IMAGING AND TESTS: CTA chest IMPRESSION: 1. ?Severely calcified tri-leaflet aortic valve. ?Details of anatomy and calcification are described above. Notably, there is significant annular calcification that extends into the LVOT 2. ?The thoracic aorta is tortuous with ?mild calcification of the ascending aorta, severe calcification of the arch and moderate mixed calcific atherosclerotic disease involving the descending aorta. The abdominal aorta is tortuous with normal caliber. There is moderate mixed atherosclerotic disease involving the supra renal abdominal aorta and severe mixed atherosclerotic disease in the infrarenal abdominal aorta. ? There is no acute aortic pathology. 3. The pelvic arteries are tortuous and calcified but otherwise normal in caliber. ?The common femoral arteries are normal in course and caliber, and moderately calcified. ?The minimal luminal caliber throughout = 6mm. The right internal iliac artery appears occluded. 4. ?Proximity of the cardiovascular structures to the sternum: The left brachiocephalic vein lies in close proximity to the posterior aspect of the manubrium at >1cm. The remainder of the cardiac and vascular structures lie a safe distance from the sternum. 5. Enlarged thyroid. Recommend ultrasound. Echo - The left ventricle is normal in size. There is moderate concentric left ventricular hypertrophy. Left ventricular systolic function is mildly decreased. EF = 43 ? 5% (2D biplane) - The right ventricle is normal in size. Right ventricular systolic function is normal. - The left atrial cavity is mildly dilated. - Tricuspid aortic valve. There is severe aortic valve stenosis caused by calcified valve. AV area is 0.76 cm? (0.42 cm?/m?) by continuity, VTI. The peak gradient is 71 mmHg, the mean gradient is 45 mmHg and the dimensionless valve index is 0.25. - Estimated right ventricular systolic pressure is 39 mmHg consistent with mild pulmonary hypertension. Estimated right atrial pressure is 5 mmHg. EKG NORMAL SINUS RHYTHM LEFT VENTRICULAR HYPERTROPHY WITH REPOLARIZATION ABNORMALITY Coronary cath LMT: - The ostial LMT - focal disease. ?Additional Comment: 30-40% ostial stenosis. ? LAD: - The mid LAD is narrowed 65 % - focal disease. ?Additional Comment: The Mid LAD has a focal 60-70% stenosis and then otherwise mild diffuse disease throughout this tortuous vessel. ? LCX: - The mid circumflex is narrowed 50 % - focal disease. RAMUS: - The Ramus is Absent. RCA: - The mid RCA is narrowed 100 % - focal disease. ?Additional Comment: The RCA is completely occluded however there are left to right collaterals to an RV marginal that then backfills the rest of the RCA and PDA beyond the stenosis. Impression:Evidence of porcelain aorta The RCA is dominant and occluded after its mid-portion. There are left to right collaterals that fill the RCA well. The LAD has moderate disease DEVICES: None MEDICATIONS: Current Outpatient Prescriptions: pravastatin (PRAVACHOL) 10 mg tablet Take 1 tablet by mouth every other day. diltiazem CD (CARDIZEM CD) 180 mg 24 hr capsule Take 1 capsule by mouth once daily. triamcinolone acetonide (KENALOG) 0.1 % ointment Apply to area twice a day on 4 days off 3 days as needed. aspirin, enteric coated (ADULT LOW DOSE ASPIRIN) 81 mg EC tablet Take 1 tablet by mouth once daily. ADVAIR DISKUS 250-50 mcg/dose dsdv USE 1 INHALATION INSTRUCTED TWICE A DAY RINSE AND GARGLE MOUTH WITH WATER AFTER EACH USE metoprolol succinate ER (TOPROL XL) 25 mg 24 hr tablet Take 1 tablet by mouth once daily. albuterol HFA (PROAIR HFA) 90 mcg/actuation inhaler Inhale 2 Puffs as instructed every 6 hours as needed. No current facility-administered medications for this visit. Is the patient currently on any anticoagulant medications: No PAIN AND ANXIETY EDUCATION AND MANAGEMENT: Patient has no concerns to address at this time. Additional Comments: none I have reviewed the Cardiothoracic Surgical Assessment and agree with its findings. During the course of the encounter the patient was prepared for anesthetic care. This conversation included anesthetic options, possible use of invasive monitoring, the risks, benefits, alternatives, and personnel that will be present for the anesthetic encounter. The patient agreed to proceed with the planned anesthetic. Instructed to take metoprolol with a small sip of water on the morning of surgery. BETA SHARON COMPLIANCE: Is the Patient Scheduled for a CABG: Yes. Patient currently takes a beta sharon, and was asked to take it as scheduled. SIGNATURE: Bijan Preciado MD PATIENT NAME: Maciej Crowder DATE: May 20, 2018 TIME: 3:35 PM PAGER/CONTACT #: [email or web address] Observed: 05/20/2018 Status: COMPLETED Source: [place] 2:[address] [facility] REPOSITORY HNO ID: [id number] Author: Moisés (Rn) CHERI Zuñiga Service: (none) Author Type: Registered Nurse Type: Progress Notes Filed: 05/20/2018 4:28 PM Note Text: CHART COPY-DO NOT DISCARD CARDIOVASCULAR SURGERY PRE-OPERATIVE ASSESSMENT NAME: Maciej Crowder Alert Notes: DATE: 05/20/2018 SEX: male : 1940 AGE: [age] year old Estimated body mass index is 26.38 kg/m? as calculated from the following: Height as of an earlier encounter on 05/20/18: 166.4 cm (5' 5.5). Weight as of an earlier encounter on 05/20/18: 73 kg (161 lb). STS Score 3.29% PHYSICIAN: Rosales Urbina M.D. CCJaxson MD: Alex Watkins MD, PhD Intended Procedure: AVR and CABG REDO: No Patient scheduled for surgery on: 05/20/2018. CHIEF COMPLAINT: Pre-Op Open Heart Surgery MEDICATIONS: Current Outpatient Prescriptions: - pravastatin (PRAVACHOL) 10 mg tablet - diltiazem CD (CARDIZEM CD) 180 mg 24 hr capsule - triamcinolone acetonide (KENALOG) 0.1 % ointment - aspirin, enteric coated (ADULT LOW DOSE ASPIRIN) 81 mg EC tablet - ADVAIR DISKUS 250-50 mcg/dose dsdv - metoprolol succinate ER (TOPROL XL) 25 mg 24 hr tablet - albuterol HFA (PROAIR HFA) 90 mcg/actuation inhaler ALLERGIES: ALLERGIES Allergen Reactions - Lipitor [Atorvastat* Other: See Comments Chills and leg pain. LATEX ALLERGY: No FOOD SENSITIVITIES: No ANTICOAGULANTS: Aspirin-last dose continue STEROIDS: No HISTORIES: FAMILY HISTORY Problem Relation Age of Onset - other (Negative) Other No asthma, allergy. PAST MEDICAL HISTORY Diagnosis Date - Aortic stenosis, moderate 08/09/2015 10/19/2014 echocardiogram. - Diverticulitis - Diverticulosis 09/18/2013 - Inguinal hernia without mention of obstruction or gangrene, unilateral or unspecified, (not specified as recurrent) - Moderate persistent asthma without complication 08/09/2015 09/29/14 Spirometry: [id number], 1.45 L/s, 65% pred. +41% post BD 08/09/15 Gabe: 109 (normal < 25). - Multiple fractures of ribs of both sides 2012 Work accident - Other specified type of hydrocele - Pneumothorax 2012 Work accident PAST SURGICAL HISTORY Procedure Laterality Date - REPAIR ING HERNIA,5+Y/O,REDUCIBL 04/19/08 Social History Marital status: Spouse name: Years of education: Number of children: Occupational History Occupation Employer Comment [employer] op* [place] 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 PERFUSION INDEX: LT: 89% RT: 47% DOMINANT HAND: right-handed Pacer Check: NA CARDIAC EVALUATION: Cardiac Cath: Date - 09/17/2017 Ultrasound: Date - n/A PFT: 04/21/2018 ECHO: - 04/15/2018 CT Scan: Date - 04/15/2018 MRI: Date - n/a CXR: 04/15/2018 EKG: 04/15/2018 Dental: 05/15/2018, cleared for surgery. see scanned documents. ? Recent Labs 05/20/18 1001 INR 1.1 APTT 26.5 PTSEC 11.4 Pre Op Instructions per protocol reviewed and handout given to patient . Patient Education completed and documented. Instructed to start Bactroban per protocol. Emotional support provided to patient and family. All questions and concerns adressed. Signature: Moisés Zuñiga RN See Cardiology History and Physical dated 05/20/2018 PROGRESS Observed: 05/20/2018 Status: COMPLETED Source: [place] 2:[address] [facility] REPOSITORY HNO ID: [id number] Author: Moisés (Rn) CHERI Zuñiga Service: (none) Author Type: Registered Nurse Type: Progress Notes Filed: 05/20/2018 2:08 PM Note Text: AMBULATORY PATIENT EDUCATION READINESS TO LEARN Cognitive Ability: Alert and oriented Motivation To Learn: Interested Family Support: High - Very involved in pt care Instruction Provided To: Patient AND Family Patient Learns Best By: Multiple Methods Factors Affecting Learning: None Physical Limitations Affecting Learning: None LEARNING RESPONSE Diagnosis: Education Topic: Pre-Op Open Heart Surgery Instructions Teaching Points: Logistics / Protocols /Complication Prevention Instruction/Supplemental Materials: Cardiac Surgery Information Binder Individual Instruction Patient/Family Response: Verbalizes understanding Follow up plan: Patient/Family to call [facility] with any further questions Referral (Recommendation): None Teach completed, topic: Instructions for Bactroban, Hibiclens, and Listerine. Patient will be called with time of surgery. CNOV Observed: 05/20/2018 Status: COMPLETED Source: [place] 2:[address] [facility] REPOSITORY Office Visit (CARTMN) MACIEJ CROWDER ([id number]) 1940 M Date Time Provider Department 05/20/18 2:00 PM [facility] During your visit today, we recorded the following information about you: Moisés Zuñiga, RN, RN 05/20/2018 4:28 PM Signed CHART COPY-DO NOT DISCARD CARDIOVASCULAR SURGERY PRE-OPERATIVE ASSESSMENT NAME: Maciej Crowder Alert Notes: DATE: 05/20/2018 SEX: male : 1940 AGE: [age] year old Estimated body mass index is 26.38 kg/m? as calculated from the following: Height as of an earlier encounter on 05/20/18: 166.4 cm (5' 5.5). Weight as of an earlier encounter on 05/20/18: 73 kg (161 lb). STS Score 3.29% PHYSICIAN: Rosales Urbina M.D. [facility] MD: Alex Watkins MD, PhD Intended Procedure: AVR and CABG REDO: No Patient scheduled for surgery on: 05/20/2018. CHIEF COMPLAINT: Pre-Op Open Heart Surgery MEDICATIONS: Current Outpatient Prescriptions: - pravastatin (PRAVACHOL) 10 mg tablet - diltiazem CD (CARDIZEM CD) 180 mg 24 hr capsule - triamcinolone acetonide (KENALOG) 0.1 % ointment - aspirin, enteric coated (ADULT LOW DOSE ASPIRIN) 81 mg EC tablet - ADVAIR DISKUS 250-50 mcg/dose dsdv - metoprolol succinate ER (TOPROL XL) 25 mg 24 hr tablet - albuterol HFA (PROAIR HFA) 90 mcg/actuation inhaler ALLERGIES: ALLERGIES Allergen Reactions - Lipitor [Atorvastat* Other: See Comments Chills and leg pain. LATEX ALLERGY: No FOOD SENSITIVITIES: No ANTICOAGULANTS: Aspirin-last dose continue STEROIDS: No HISTORIES: FAMILY HISTORY Problem Relation Age of Onset - other (Negative) Other No asthma, allergy. PAST MEDICAL HISTORY Diagnosis Date - Aortic stenosis, moderate 08/09/2015 10/19/2014 echocardiogram. - Diverticulitis - Diverticulosis 09/18/2013 - Inguinal hernia without mention of obstruction or gangrene, unilateral or unspecified, (not specified as recurrent) - Moderate persistent asthma without complication 08/09/2015 09/29/14 Spirometry: [id number], 1.45 L/s, 65% pred. +41% post BD 08/09/15 Gabe: 109 (normal < 25). - Multiple fractures of ribs of both sides 2012 Work accident - Other specified type of hydrocele - Pneumothorax 2012 Work accident PAST SURGICAL HISTORY Procedure Laterality Date - REPAIR ING HERNIA,5+Y/O,REDUCIBL 04/19/08 Social History Marital status: Spouse name: Years of education: Number of children: Occupational History Occupation Employer Comment [employer] op* [place]. 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 PERFUSION INDEX: LT: 89% RT: 47% DOMINANT HAND: right-handed Pacer Check: NA CARDIAC EVALUATION: Cardiac Cath: Date - 09/17/2017 Ultrasound: Date - n/A PFT: Date - 04/21/2018 ECHO: Date - 04/15/2018 CT Scan: Date - 04/15/2018 MRI: Date - n/a CXR: - 04/15/2018 EKG: Date - 04/15/2018 Dental: 05/15/2018, cleared for surgery. see scanned documents. ? Recent Labs 05/20/18 1001 INR 1.1 APTT 26.5 PTSEC 11.4 Pre Op Instructions per protocol reviewed and handout given to patient . Patient Education completed and documented. Instructed to start Bactroban per protocol. Emotional support provided to patient and family. All questions and concerns adressed. Signature: Moisés Zuñiga RN See Cardiology History and Physical dated 05/20/2018 Referring Provider: ROSALES URBINA [[id number]] Allergies As of Date: 05/20/2018 Noted Allergy Reaction LIPITOR (ATORVASTATIN CALCIUM) 11/22/2017 14 - Other: See Comments Comments: Chills and leg pain. Date Reviewed: 05/20/2018 Reviewed by: Bijan Preciado MD (Fel) - Fully Assessed Visit Diagnoses:Discharge planning issues [Z02.9] Preop testing [Z01.818] Prescriptions as of 05/20/2018 Sig: PRAVASTATIN 10 MG TABLET Take 1 tablet by mouth every * DILTIAZEM SR 180 MG 24 HR CAP Take 1 capsule by mouth once * TRIAMCINOLONE ACETONIDE 0.1 %* Apply to area twice a day on * ASPIRIN 81 MG TABLET,DELAYED * Take 1 tablet by mouth once d* ADVAIR DISKUS 250 MCG-50 MCG/* USE 1 INHALATION INSTRUCTE* METOPROLOL SUCCINATE ER 25 MG* Take 1 tablet by mouth once d* ALBUTEROL SULFATE HFA 90 MCG/* Inhale 2 Puffs as instructed * Problem List As Of Date 05/20/2018 Noted Resolved 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 Scrotal swelling [N50.89] INVALID FOR* Diverticulosis [K57.90] INVALID FOR* Priority: C Elevated blood pressure reading without diagnos*INVALID FOR* Ex-smoker [Z87.891] INVALID FOR* Priority: C More... Well adult exam [Z00.00] INVALID FOR* Priority: D More... Need for lipid screening [Z13.220] INVALID FOR* More... Severe aortic stenosis [I35.0] INVALID FOR* Priority: A More... Moderate persistent asthma without complication*INVALID FOR* Priority: A More... Eczema [L30.9] INVALID FOR* Priority: D More... More... 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 Discharge planning issues [Z02.9] INVALID FOR* More... Preop testing [Z01.818] INVALID FOR* More... Encounter Status:Closed by MOISÉS ZUÑIGA on 05/20/18 TONY Observed: 05/20/2018 Status: COMPLETED Source: [place] 2:[address] [facility] REPOSITORY Office Visit (CARTMN) MACIEJ CROWDER ([id number]) 1940 M Date Time Provider Department 05/20/18 2:00 PM [facility] CARTMN During your visit today, we recorded the following information about you: Bijan Preciado MD, MD 05/20/2018 4:54 PM Signed [facility] PRE[facility] EVALUATION CARDIOTHORACIC ANESTHESIA CARDIAC SURGERY SERVICE DATE: 05/20/2018 SERVICE TIME: 3:35 PM Proposed Surgical Procedure: CABG and Aortic Valve Surgery Re-do: No ASA Class: 4 Surgeon: Carlitos Surgery Date: 05/22/18 Last Wt 05/20/18 : 73 kg (161 lb) Last Ht 05/20/18 : 166.4 cm (5' 5.5) Estimated body mass index is 26.38 kg/m? as calculated from the following: Height as of an earlier encounter on 05/20/18: 166.4 cm (5' 5.5). Weight as of an earlier encounter on 05/20/18: 73 kg (161 lb). Estimated body surface area is 1.84 meters squared as calculated from the following: Height as of an earlier encounter on 05/20/18: 166.4 cm (5' 5.5). Weight as of an earlier encounter on 05/20/18: 73 kg (161 lb). 78yo male with hx of severe , CAD, mild asthma, diverticulosis going for AVR and CABG. Family hx of Malignant Hyperthermia. Pt reports his nephew had back surgery and developed malignant hyperthermia and was in a coma for a couple of weeks from which he recovered. He later from another complication but did have true MH reaction to anesthetic agent per family members. Family reports no one else in the family has had a reaction to general anesthesia and pt has had a general anesthetic for inguinal hernia repair in 2007 (at OSH unsure if this was using a non triggering anesthetic). Of note, pt has an enlarged thyroid gland, but no respiratory distress or dysphagia from this. No tracheal deviation noted on CXR. US of thyroid done today to assess further. Active Problems: * No active hospital problems. * Resolved Problems: * No resolved hospital problems. * PAST MEDICAL HISTORY Diagnosis Date - Aortic stenosis, moderate 08/09/2015 10/19/2014 echocardiogram. - Diverticulitis - Diverticulosis 09/18/2013 - Inguinal hernia without mention of obstruction or gangrene, unilateral or unspecified, (not specified as recurrent) - Moderate persistent asthma without complication 08/09/2015 09/29/14 Spirometry: [id number], 1.45 L/s, 65% pred. +41% post BD 08/09/15 Gabe: 109 (normal < 25). - Multiple fractures of ribs of both sides 2012 Work accident - Other specified type of hydrocele - Pneumothorax 2012 Work accident PAST SURGICAL HISTORY Procedure Laterality Date - REPAIR ING HERNIA,5+Y/O,REDUCIBL 04/19/08 FAMILY HISTORY Problem Relation Age of Onset - other (Negative) Other No asthma, allergy. Social History Substance Use Topics - Smoking status: Former Smoker Types: Cigars - Smokeless tobacco: Never Used Comment: Occasionally smoked cigars - Alcohol use No ALLERGIES Allergen Reactions - Lipitor [Atorvastat* Other: See Comments Chills and leg pain. REVIEW OF SYSTEMS: Neuro: no hx of seizures or stroke Respiratory: Asthma, Dyspnea Cardiovascular: Positive for: Anticoagulation therapy, HLD, Hypertension, Valvular Heart Disease GI: No history of GI symptoms or problems. No history of esophageal varices, recent ascites, or ETOH greater than 2 drinks per day. Endocrine: No history of diabetes. Has not taken steroids within the past 30 days. No history of endocrinological symptoms or problems. Hematology: Chronic anti-coagulation / platelet meds (Aspirin) CKD AND ANEMIA ASSESSMENT: Patient has both eGFR < 60 mL/min and a Hemoglobin < 11 g/dl: No if the patient is going on CPB. ANESTHETIC HISTORY: History of general anesthesia without complications. AIRWAY ASSESSMENT: Airway History: No abnormal airway history Airway Exam: General: Normal appearance Mallampati Score: CLASS II Temporo-Mandibular Displacement Test: Position B (lower teeth can be advanced even with upper teeth) Interincisor Distance: 4 cm Thyromental Distance: 6 cm Neck Circumference: 34 cm Overbite: No Cervical Mobility: Normal Facial Hair: Yes, Full Woods-Yes Head/Neck Pathology: No ANTICIPATED DIFFICULT AIRWAY: NO Pre-Existing Diagnosis of Obstructive Sleep Apnea: No, STOP BANG SCORE: Criteria = Criteria: Snoring Hypertension Age over 50 (78 year old) Male gender Score = 4, Score = 4 PHYSICAL EXAM: VITALS: There were no vitals taken for this visit. CARDIAC: Systolic murmur LUNGS: Lungs clear to auscultation. Good air entry bilaterally. Lines, Drains, Airway: Patient has no lines, drains or airway LABS: Lab Results Past 6 Months Component Value Date HB 13.6 04/15/2018 HCT 41.8 04/15/2018 PLT 290 04/15/2018 WBC 6.16 04/15/2018 NA 139 04/15/2018 K 4.6 04/15/2018 CREAT 1.03 04/15/2018 CA 9.6 04/15/2018 APTT 26.5 05/20/2018 INR 1.1 05/20/2018 Lab Results Past 6 Months Component Value Date GLUC 89 04/15/2018 K 4.6 04/15/2018 NA 139 04/15/2018 CHLOR 102 04/15/2018 CO2 25 04/15/2018 CREAT 1.03 04/15/2018 BUN 22 04/15/2018 ANION 12 04/15/2018 CA 9.6 04/15/2018 TPROT 7.3 04/15/2018 ALB 4.3 04/15/2018 TBILI 0.4 04/15/2018 ALKPHOS 94 04/15/2018 AST 22 04/15/2018 ALT 21 04/15/2018 ABO/RH(D) (no units) Date Value 05/20/2018 A POSITIVE Antibody Screen (no units) Date Value 05/20/2018 NEG Historical Ab Scr Status (no units) Date Value 05/20/2018 NEGATIVE Anticipated Blood Products Ordered: No blood product orders needed. Will the Patient Accept Blood: Yes IMAGING AND TESTS: CTA chest IMPRESSION: 1. ?Severely calcified tri-leaflet aortic valve. ?Details of anatomy and calcification are described above. Notably, there is significant annular calcification that extends into the LVOT 2. ?The thoracic aorta is tortuous with ?mild calcification of the ascending aorta, severe calcification of the arch and moderate mixed calcific atherosclerotic disease involving the descending aorta. The abdominal aorta is tortuous with normal caliber. There is moderate mixed atherosclerotic disease involving the supra renal abdominal aorta and severe mixed atherosclerotic disease in the infrarenal abdominal aorta. ? There is no acute aortic pathology. 3. The pelvic arteries are tortuous and calcified but otherwise normal in caliber. ?The common femoral arteries are normal in course and caliber, and moderately calcified. ?The minimal luminal caliber throughout = 6mm. The right internal iliac artery appears occluded. 4. ?Proximity of the cardiovascular structures to the sternum: The left brachiocephalic vein lies in close proximity to the posterior aspect of the manubrium at >1cm. The remainder of the cardiac and vascular structures lie a safe distance from the sternum. 5. Enlarged thyroid. Recommend ultrasound. Echo - The left ventricle is normal in size. There is moderate concentric left ventricular hypertrophy. Left ventricular systolic function is mildly decreased. EF = 43 ? 5% (2D biplane) - The right ventricle is normal in size. Right ventricular systolic function is normal. - The left atrial cavity is mildly dilated. - Tricuspid aortic valve. There is severe aortic valve stenosis caused by calcified valve. AV area is 0.76 cm? (0.42 cm?/m?) by continuity, VTI. The peak gradient is 71 mmHg, the mean gradient is 45 mmHg and the dimensionless valve index is 0.25. - Estimated right ventricular systolic pressure is 39 mmHg consistent with mild pulmonary hypertension. Estimated right atrial pressure is 5 mmHg. EKG NORMAL SINUS RHYTHM LEFT VENTRICULAR HYPERTROPHY WITH REPOLARIZATION ABNORMALITY Coronary cath LMT: - The ostial LMT - focal disease. ?Additional Comment: 30-40% ostial stenosis. ? LAD: - The mid LAD is narrowed 65 % - focal disease. ?Additional Comment: The Mid LAD has a focal 60-70% stenosis and then otherwise mild diffuse disease throughout this tortuous vessel. ? LCX: - The mid circumflex is narrowed 50 % - focal disease. RAMUS: - The Ramus is Absent. RCA: - The mid RCA is narrowed 100 % - focal disease. ?Additional Comment: The RCA is completely occluded however there are left to right collaterals to an RV marginal that then backfills the rest of the RCA and PDA beyond the stenosis. Impression:Evidence of porcelain aorta The RCA is dominant and occluded after its mid-portion. There are left to right collaterals that fill the RCA well. The LAD has moderate disease DEVICES: None MEDICATIONS: Current Outpatient Prescriptions: pravastatin (PRAVACHOL) 10 mg tablet Take 1 tablet by mouth every other day. diltiazem CD (CARDIZEM CD) 180 mg 24 hr capsule Take 1 capsule by mouth once daily. triamcinolone acetonide (KENALOG) 0.1 % ointment Apply to area twice a day on 4 days off 3 days as needed. aspirin, enteric coated (ADULT LOW DOSE ASPIRIN) 81 mg EC tablet Take 1 tablet by mouth once daily. ADVAIR DISKUS 250-50 mcg/dose dsdv USE 1 INHALATION INSTRUCTED TWICE A DAY RINSE AND GARGLE MOUTH WITH WATER AFTER EACH USE metoprolol succinate ER (TOPROL XL) 25 mg 24 hr tablet Take 1 tablet by mouth once daily. albuterol HFA (PROAIR HFA) 90 mcg/actuation inhaler Inhale 2 Puffs as instructed every 6 hours as needed. No current facility-administered medications for this visit. Is the patient currently on any anticoagulant medications: No PAIN AND ANXIETY EDUCATION AND MANAGEMENT: Patient has no concerns to address at this time. Additional Comments: none I have reviewed the Cardiothoracic Surgical Assessment and agree with its findings. During the course of the encounter the patient was prepared for anesthetic care. This conversation included anesthetic options, possible use of invasive monitoring, the risks, benefits, alternatives, and personnel that will be present for the anesthetic encounter. The patient agreed to proceed with the planned anesthetic. Instructed to take metoprolol with a small sip of water on the morning of surgery. BETA SHARON COMPLIANCE: Is the Patient Scheduled for a CABG: Yes. Patient currently takes a beta sharon, and was asked to take it as scheduled. SIGNATURE: Bijan Preciado MD PATIENT NAME: Maciej Crowder DATE: May 20, 2018 TIME: 3:35 PM PAGER/CONTACT #: Referring Provider: ROSALES URBINA [[id number]] Allergies As of Date: 05/20/2018 Noted Allergy Reaction LIPITOR (ATORVASTATIN CALCIUM) 11/22/2017 14 - Other: See Comments Comments: Chills and leg pain. Date Reviewed: 05/20/2018 Reviewed by: Bijan Preciado MD (Fel) - Fully Assessed Primary Visit Diagnosis:Encounter for preoperative anesthesiology assessment for cardiac surgery [Z01.818] Order(s):mupirocin (BACTROBAN) 2 % ointmentApply 1 application to affected area three times daily. Use twice a day (day before surgery) and once on morning of surgeryDisp: 1 TubeRfl: 0 Prescriptions as of 05/20/2018 Sig: MUPIROCIN 2 % TOPICAL OINTMENT Apply 1 application to affect* PRAVASTATIN 10 MG TABLET Take 1 tablet by mouth every * DILTIAZEM SR 180 MG 24 HR CAP Take 1 capsule by mouth once * TRIAMCINOLONE ACETONIDE 0.1 %* Apply to area twice a day on * ASPIRIN 81 MG TABLET,DELAYED * Take 1 tablet by mouth once d* ADVAIR DISKUS 250 MCG-50 MCG/* USE 1 INHALATION INSTRUCTE* METOPROLOL SUCCINATE ER 25 MG* Take 1 tablet by mouth once d* ALBUTEROL SULFATE HFA 90 MCG/* Inhale 2 Puffs as instructed * Problem List As Of Date 05/20/2018 Noted Resolved 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 Scrotal swelling [N50.89] INVALID FOR* Diverticulosis [K57.90] INVALID FOR* Priority: C Elevated blood pressure reading without diagnos*INVALID FOR* Ex-smoker [Z87.891] INVALID FOR* Priority: C More... Well adult exam [Z00.00] INVALID FOR* Priority: D More... Need for lipid screening [Z13.220] INVALID FOR* More... Severe aortic stenosis [I35.0] INVALID FOR* Priority: A More... Moderate persistent asthma without complication*INVALID FOR* Priority: A More... Eczema [L30.9] INVALID FOR* Priority: D More... More... 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 Discharge planning issues [Z02.9] INVALID FOR* More... Preop testing [Z01.818] INVALID FOR* More... Prescriptions ordered this encounter Disp Refills Start End MUPIROCIN 2 % TOPICAL OINTMENT 1 Tu* 0 05/20/2018 Class: Print RX Route: TOPICAL Sig: Apply 1 application to affected area three times daily. Use twice a day (day before surgery) and once on morning of surgery Encounter Status:Closed by BIJAN PRECIADO MD on 05/20/18 STAPH AUREUS PCR Collected: 05/20/2018 Status: F Source: [place] 1:[address] [facility] REPOSITORY TYPE CODE TESTS RESULT OUT OF REFERENCE UNITS RANGE LAB SASRC Nasal S aureus Spec Source LAB MRSRES Negative for MRSA MRSA by PCR. PCR LAB SARES Negative for Staph Staphylococcus aureus PCR aureus by PCR. Performed By: #### SAPCR #### [facility] [employer] [address], [place] [address] URINALYSIS Collected: 05/20/2018 Status: F Source: [place] 12:[address] [facility] REPOSITORY TYPE CODE TESTS RESULT OUT OF REFERENCE UNITS RANGE LAB UCOL Yellow Color Yellow LAB [facility] Clear Clarity Clear LAB UGLUC Negative mg/dL Glucose, Urine Negative LAB UBIL Negative Bilirubin, Urine Negative LAB UKET Negative Ketones, Urine Negative LAB USPG 1.005-1.030 Specific [place], Ur 1.015 LAB UHGB Negative Hemoglobin/Blood, Negative Ur LAB UPH 4.5-8.0 pH 5.0 LAB UPROT Negative mg/dL Protein, Urine Negative LAB UUROB Normal Urobilinogen Normal LAB UNITR Negative Nitrites Negative LAB ULKEST Negative Leukest Negative LAB UCOM Comments SEE COMMENT Result Comment: Microscopic not warranted LAB UMCOM Urine SEE [place] Comment COMMENT Result Comment: N/A Performed By: #### UA #### [facility] [employer] [address] [employer] [address] [place], [place] [address] CONFIRM BLOOD TYPE Collected: 05/20/2018 Status: F Source: [place] 10:[address] [facility] REPOSITORY TYPE CODE TESTS RESULT OUT OF REFERENCE UNITS RANGE LAB %ABR A ABO/RH(D) POSITIVE Performed By: #### CONABO #### [facility] [employer] [address] [place], [place] [address] PROTIME Collected: 05/20/2018 Status: F Source: [place] 10:01 [facility] REPOSITORY TYPE CODE TESTS RESULT OUT OF RANGE REFERENCE UNITS LAB PSEC 9.7-13.0 sec PT Sec 11.4 LAB INR 0.9-1.3 PT INR 1.1 Result Comment: Vitamin K Antagonist (VKA) Therapeutic Range: INR 2 to 3 (Target INR of 2.5) Note: For patients treated with VKA drugs, such as warfarin, the [employer] 2012 Guideline recommends a therapeutic INR range of 2 to 3 (target INR of 2.5). This recommendation includes high-risk patients with antiphospholipid syndrome with previous arterial or venous thromboembolism, current-generation mechanical or bioprosthetic aortic heart valve replacement. Note: Patients with mechanical aortic valve replacement and additional risk factors for thromboembolic events (atrial fibrillation, previous thromboembolism, LV dysfunction, hypercoagulable conditions) or an older generation mechanical AVR (i.e., ball in-Cage) or any mechanical MVR should have a INR therapeutic range of 2.5 to 3.5 (target INR of 3). Suleiman GH, et al. Chest 2012, 141:7S-47S Celina RA, et al. [facility] 2017, 70: 252-289 Performed By: #### PT, PTT, LD6 #### [facility] [employer] [address] [place], [place] [address] APTT Collected: 05/20/2018 Status: F Source: [place] 10:01 [facility] REPOSITORY TYPE CODE TESTS RESULT OUT OF RANGE REFERENCE UNITS LAB APTT 23.0-32.4 sec APTT 26.5 Result Comment: Unfractionated Heparin Therapeutic Ranges: Standard Heparin Nomogram: 53 to 78 seconds (anti-Xa level of 0.3 to 0.7 U/ml) Low Dose/ACS Nomogram: 49 to 67 seconds (anti-Xa level of 0.2 to 0.5 U/ml) Stroke Treatment Nomogram: 49 to 67 seconds (anti-Xa level of 0.2 to 0.5 U/ml) Note: The APTT therapeutic range has been determined for the current lot of laboratory APTT reagent in use throughout the [facility]. Performed By: #### PT, PTT, LD6 #### [facility] [employer] [address] [place], [place] [address] LD Collected: 05/20/2018 Status: F Source: [facility] 10:01 AM [facility] REPOSITORY TYPE CODE TESTS RESULT OUT OF RANGE REFERENCE UNITS LAB LD 135-225 U/L LD 181 Performed By: #### PT, PTT, LD6 #### [facility] [address] [place] [address] TYPE AND SCR (30D) Collected: 05/20/2018 Status: F Source: [place] 10:[address] [facility] REPOSITORY TYPE CODE TESTS RESULT OUT OF REFERENCE UNITS RANGE LAB %ABR A ABO/RH(D) POSITIVE LAB % Antibody NEG Screen Performed By: #### [id number] #### [place] [address] TSH Collected: 05/20/2018 Status: F Source: [place] 10:[address] [facility] REPOSITORY TYPE CODE TESTS RESULT OUT OF RANGE REFERENCE UNITS LAB TSH 0.400-5.500 uU/mL TSH 1.380 Performed By: #### TSH #### [place] [address] PROGRESS Observed: 05/20/2018 Status: COMPLETED Source: [place] 9:[address] [facility] REPOSITORY HNO ID: [id number] Author: Alex Watkins Service: (none) Author Type: Physician Type: Progress Notes Filed: 05/20/2018 9:28 AM Note Text: [facility] [place] [facility] Department of Cardiovascular Medicine SECTION OF CARDIOVASCULAR IMAGING OUTPATIENT VISIT DATE May 20, 2018 OUTPATIENT VISIT TYPE ESTABLISHED PRIMARY CARE PHYSICIAN: Vidal Valdes MD [address] [place] [address] CHIEF COMPLAINT: Follow up HISTORY OF PRESENT ILLNESS: Mr. Crowder is a 78 year old male who presents today for follow- up visit prior to his OHS (AVFR+/-CABG) Per prior visit 04/15/18 Mr. Crowder is a 78 year old male who presents today for management of his aortic stenosis. Patient has severe aortic stenosis and symptoms from it, and appears that his EF is getting lower. Two Class I recommendation for AVR. He doesn't have major surgical risk factors and would warrant evaluation for SAVR over TAVR. 1. Surgical evaluation for SAVR 2. If not candidate for SAVR as determined by Drs. Barahona and Carlitos then referral to TAVR team ? [facility] done 08/2017 @ [facility]: Coronary Anatomy: Right Dominant LMT: - The ostial LMT - focal disease. ?Additional Comment: 30-40% ostial stenosis. LAD: - The mid LAD is narrowed 65 % - focal disease. ?Additional Comment: The Mid LAD has a focal 60-70% stenosis and then otherwise mild diffuse disease throughout this tortuous vessel. LCX: - The mid circumflex is narrowed 50 % - focal disease. RAMUS: - The Ramus is Absent. RCA: - The mid RCA is narrowed 100 % - focal disease. ?Additional Comment: The RCA is completely occluded however there are left to right collaterals to an RV marginal that then backfills the rest of the RCA and PDA beyond the stenosis. ? Since his last visit, he states that no interval changes. In good sprits. Accompanied by , roly PAST CARDIAC HISTORY: He has been seen in the past for see above. PAST MEDICAL HISTORY Diagnosis Date - Aortic stenosis, moderate 08/09/2015 10/19/2014 echocardiogram. - Diverticulitis - Diverticulosis 09/18/2013 - Inguinal hernia without mention of obstruction or gangrene, unilateral or unspecified, (not specified as recurrent) - Moderate persistent asthma without complication 08/09/2015 09/29/14 Spirometry: AIK50-90, 1.45 L/s, 65% pred. +41% post BD 08/09/15 Gabe: 109 (normal < 25). - Multiple fractures of ribs of both sides 2012 Work accident - Other specified type of hydrocele - Pneumothorax 2013 Work accident PAST SURGICAL HISTORY Procedure Laterality Date - REPAIR ING HERNIA,5+Y/O,REDUCIBL 04/19/08 SOCIAL HISTORY Social History Substance Use Topics - Smoking status: Former Smoker Types: Cigars - Smokeless tobacco: Never Used Comment: Occasionally smoked cigars - Alcohol use No FAMILY HISTORY Problem Relation Age of Onset - other (Negative) Other No asthma, allergy. ALLERGIES: ALLERGIES Allergen Reactions - Lipitor [Atorvastat* Other: See Comments Chills and leg pain. MEDICATIONS: pravastatin (PRAVACHOL) 10 mg tablet Take 1 tablet by mouth every other day. diltiazem CD (CARDIZEM CD) 180 mg 24 hr capsule Take 1 capsule by mouth once daily. triamcinolone acetonide (KENALOG) 0.1 % ointment Apply to area twice a day on 4 days off 3 days as needed. aspirin, enteric coated (ADULT LOW DOSE ASPIRIN) 81 mg EC tablet Take 1 tablet by mouth once daily. ADVAIR DISKUS 250-50 mcg/dose dsdv USE 1 INHALATION INSTRUCTED TWICE A DAY RINSE AND GARGLE MOUTH WITH WATER AFTER EACH USE metoprolol succinate ER (TOPROL XL) 25 mg 24 hr tablet Take 1 tablet by mouth once daily. albuterol HFA (PROAIR HFA) 90 mcg/actuation inhaler Inhale 2 Puffs as instructed every 6 hours as needed. REVIEW OF SYSTEMS: See HPI. PHYSICAL EXAMINATION: BP 147/70 (BP Site: Left Arm, BP Position: Sitting, BP Cuff Size: Regular Adult) Pulse 78 Resp 16 Ht 166.4 cm (5' 5.5) Wt 73 kg (161 lb) SpO2 98% BMI 26.38 kg/m? General: Kyphoscoliosis, Well appearing, in no acute distress. Skin: No clubbing, no cyanosis. Eyes: Extra ocular movements intact Oropharynx: Teeth in good repair. Neck: No jugular venous distention, no carotid bruits, carotids have a normal upstroke, no palpable thyromegaly. Lungs: Clear to auscultation bilaterally, no wheezing or rhonchi. Heart: Regular rhythm, PMI not displaced, S1, S2 normal. Systolic murmur 4/6 at the RUSB Abdomen: Soft, nontender, bowel sounds normal, no palpable organomegaly, no bruits. Extremities: No peripheral edema . Grade 2/4 distal pulses bilaterally. Neuro: Oriented to person, place and time, alert, cooperative, gait coordinated. CARDIOVASCULAR MEDICINE TESTING: none Assessment IMPRESSION: Mr. Crowder is a 78 year old male seen prior to OHS-AVR+CABG. Pt has severe , occluded dominant RCA filled by collaterals and WMA in the RCA territory, and some LM disease. Exact revascularization plan to be determined by Dr Urbina. Postoperative care and rehabilitation discussed. We discussed the anticipated length of ICU stay as well as stay on regular nursing floor. We also discussed the possibility of post-operative atrial fibrillation, which is short-lasting in most patients, but in a small proportion, it could become permanent AF. Also discussed post op pericardial effusion requiring drainage in a small proportion of patients. The patient should have a 6-week post-op check either locally or here at the [facility], whichever is feasible. In an ideal situation, the patient should follow-up with me at yearly inervals. The patient should have cardiac rehab locally at starting 6 weeks post-operatively and going on for 6-12 weeks. If median sternotomy performed, patient will not be able to drive for 6 weeks. All questions answered. CONTACT INFORMATION: Alex Watkins M.D. [facility] Department of Cardiovascular Medicine [facility] [place] [facility] Desk [place] [address] Office ? [phone] extension [phone] Office Appointments: [phone] -[phone] extension [phone] CNOV Observed: 05/20/2018 Status: COMPLETED Source: [place] 8:[address] [facility] REPOSITORY Office Visit ([id number]) MACIEJ CROWDER ([id number]) 1940 M Date Time Provider Department 05/20/18 8:30 AM ALEX WATKINS During your visit today, we recorded the following information about you: Pulse Respiration Blood pressure Weight 78/minute 16/minute 147/70 73 kg Height 1.664 m Alex Watkins MD 05/20/2018 9:28 AM Signed [facility] [place] [facility] Department of Cardiovascular Medicine SECTION OF CARDIOVASCULAR IMAGING OUTPATIENT VISIT DATE May 20, 2018 OUTPATIENT VISIT TYPE ESTABLISHED PRIMARY CARE PHYSICIAN: Vidal Valdes MD [address] [place] [address] CHIEF COMPLAINT: Follow up HISTORY OF PRESENT ILLNESS: Mr. Crowder is a 78 year old male who presents today for follow- up visit prior to his OHS (AVFR+/-CABG) Per prior visit 04/15/18 Mr. Crowder is a 78 year old male who presents today for management of his aortic stenosis. Patient has severe aortic stenosis and symptoms from it, and appears that his EF is getting lower. Two Class I recommendation for AVR. He doesn't have major surgical risk factors and would warrant evaluation for SAVR over TAVR. 1. Surgical evaluation for SAVR 2. If not candidate for SAVR as determined by Drs. Barahona and Carlitos then referral to TAVR team ? [facility] done 08/2017 @ [facility]: Coronary Anatomy: Right Dominant LMT: - The ostial LMT - focal disease. ?Additional Comment: 30-40% ostial stenosis. LAD: - The mid LAD is narrowed 65 % - focal disease. ?Additional Comment: The Mid LAD has a focal 60-70% stenosis and then otherwise mild diffuse disease throughout this tortuous vessel. LCX: - The mid circumflex is narrowed 50 % - focal disease. RAMUS: - The Ramus is Absent. RCA: - The mid RCA is narrowed 100 % - focal disease. ?Additional Comment: The RCA is completely occluded however there are left to right collaterals to an RV marginal that then backfills the rest of the RCA and PDA beyond the stenosis. ? Since his last visit, he states that no interval changes. In good sprits. Accompanied by , roly PAST CARDIAC HISTORY: He has been seen in the past for see above. PAST MEDICAL HISTORY Diagnosis Date - Aortic stenosis, moderate 08/09/2015 10/19/2014 echocardiogram. - Diverticulitis - Diverticulosis 09/18/2013 - Inguinal hernia without mention of obstruction or gangrene, unilateral or unspecified, (not specified as recurrent) - Moderate persistent asthma without complication 08/09/2015 09/29/14 Spirometry: IJY83-05, 1.45 L/s, 65% pred. +41% post BD 08/09/15 Gabe: 109 (normal < 25). - Multiple fractures of ribs of both sides 2012 Work accident - Other specified type of hydrocele - Pneumothorax 2012 Work accident PAST SURGICAL HISTORY Procedure Laterality Date - REPAIR ING HERNIA,5+Y/O,REDUCIBL 04/19/08 SOCIAL HISTORY Social History Substance Use Topics - Smoking status: Former Smoker Types: Cigars - Smokeless tobacco: Never Used Comment: Occasionally smoked cigars - Alcohol use No FAMILY HISTORY Problem Relation Age of Onset - other (Negative) Other No asthma, allergy. ALLERGIES: ALLERGIES Allergen Reactions - Lipitor [Atorvastat* Other: See Comments Chills and leg pain. MEDICATIONS: pravastatin (PRAVACHOL) 10 mg tablet Take 1 tablet by mouth every other day. diltiazem CD (CARDIZEM CD) 180 mg 24 hr capsule Take 1 capsule by mouth once daily. triamcinolone acetonide (KENALOG) 0.1 % ointment Apply to area twice a day on 4 days off 3 days as needed. aspirin, enteric coated (ADULT LOW DOSE ASPIRIN) 81 mg EC tablet Take 1 tablet by mouth once daily. ADVAIR DISKUS 250-50 mcg/dose dsdv USE 1 INHALATION INSTRUCTED TWICE A DAY RINSE AND GARGLE MOUTH WITH WATER AFTER EACH USE metoprolol succinate ER (TOPROL XL) 25 mg 24 hr tablet Take 1 tablet by mouth once daily. albuterol HFA (PROAIR HFA) 90 mcg/actuation inhaler Inhale 2 Puffs as instructed every 6 hours as needed. REVIEW OF SYSTEMS: See HPI. PHYSICAL EXAMINATION: BP 147/70 (BP Site: Left Arm, BP Position: Sitting, BP Cuff Size: Regular Adult) Pulse 78 Resp 16 Ht 166.4 cm (5' 5.5) Wt 73 kg (161 lb) SpO2 98% BMI 26.38 kg/m? General: Kyphoscoliosis, Well appearing, in no acute distress. Skin: No clubbing, no cyanosis. Eyes: Extra ocular movements intact Oropharynx: Teeth in good repair. Neck: No jugular venous distention, no carotid bruits, carotids have a normal upstroke, no palpable thyromegaly. Lungs: Clear to auscultation bilaterally, no wheezing or rhonchi. Heart: Regular rhythm, PMI not displaced, S1, S2 normal. Systolic murmur 4/6 at the RUSB Abdomen: Soft, nontender, bowel sounds normal, no palpable organomegaly, no bruits. Extremities: No peripheral edema . Grade 2/4 distal pulses bilaterally. Neuro: Oriented to person, place and time, alert, cooperative, gait coordinated. CARDIOVASCULAR MEDICINE TESTING: none Assessment IMPRESSION: Mr. Crowder is a 78 year old male seen prior to OHS-AVR+CABG. Pt has severe , occluded dominant RCA filled by collaterals and WMA in the RCA territory, and some LM disease. Exact revascularization plan to be determined by Dr Urbina. Postoperative care and rehabilitation discussed. We discussed the anticipated length of ICU stay as well as stay on regular nursing floor. We also discussed the possibility of post-operative atrial fibrillation, which is short-lasting in most patients, but in a small proportion, it could become permanent AF. Also discussed post op pericardial effusion requiring drainage in a small proportion of patients. The patient should have a 6-week post-op check either locally or here at the [facility], whichever is feasible. In an ideal situation, the patient should follow-up with me at yearly inervals. The patient should have cardiac rehab locally at starting 6 weeks post-operatively and going on for 6-12 weeks. If median sternotomy performed, patient will not be able to drive for 6 weeks. All questions answered. CONTACT INFORMATION: Kathi Benton and Emma Magallanes Department of Cardiovascular Medicine Heart and Vascular [place] [facility] Desk [address] [place] [address] Office ? [phone] extension [phone] Office Appointments: [phone] -[phone] extension [phone] Referring Provider: ROSALES URBINA [[id number]] Allergies As of Date: 05/20/2018 Noted Allergy Reaction LIPITOR (ATORVASTATIN CALCIUM) 11/22/2017 14 - Other: See Comments Comments: Chills and leg pain. Date Reviewed: 05/20/2018 Reviewed by: Bijan Preciado MD (Fel) - Fully Assessed Primary Visit Diagnosis:Chronic systolic heart failure (HCC) [I50.22] Other Visit Diagnoses:Nonrheumatic aortic valve stenosis [I35.0] Coronary artery disease involving [place] coronary artery of [place] heart with other form of angina pectoris (HCC) [I25.118] Prescriptions as of 05/20/2018 Sig: PRAVASTATIN 10 MG TABLET Take 1 tablet by mouth every * DILTIAZEM SR 180 MG 24 HR CAP Take 1 capsule by mouth once * TRIAMCINOLONE ACETONIDE 0.1 %* Apply to area twice a day on * ASPIRIN 81 MG TABLET,DELAYED * Take 1 tablet by mouth once d* ADVAIR DISKUS 250 MCG-50 MCG/* USE 1 INHALATION INSTRUCTE* METOPROLOL SUCCINATE ER 25 MG* Take 1 tablet by mouth once d* ALBUTEROL SULFATE HFA 90 MCG/* Inhale 2 Puffs as instructed * Problem List As Of Date 05/20/2018 Noted Resolved 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 Scrotal swelling [N50.89] INVALID FOR* Diverticulosis [K57.90] INVALID FOR* Priority: C Elevated blood pressure reading without diagnos*INVALID FOR* Ex-smoker [Z87.891] INVALID FOR* Priority: C More... Well adult exam [Z00.00] INVALID FOR* Priority: D More... Need for lipid screening [Z13.220] INVALID FOR* More... Severe aortic stenosis [I35.0] INVALID FOR* Priority: A More... Moderate persistent asthma without complication*INVALID FOR* Priority: A More... Eczema [L30.9] INVALID FOR* Priority: D More... More... 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 Discharge planning issues [Z02.9] INVALID FOR* More... Preop testing [Z01.818] INVALID FOR* More... Letter Text Encounter Status:Closed by ALEX WATKINS MD on 05/20/18 CNCNPATED Observed: 05/20/2018 Status: COMPLETED Source: [place] 12:[address] [facility] REPOSITORY Education (CLINT) MACIEJ CROWDER ([id number]) 1940 M Date Time Provider Department 05/20/18 ROSALES URBINA Reason for Visit: Patient Education [91] Progress Notes: Moisés Zuñiga, RN, RN 05/20/2018 2:08 PM Signed AMBULATORY PATIENT EDUCATION READINESS TO LEARN Cognitive Ability: Alert and oriented Motivation To Learn: Interested Family Support: High - Very involved in pt care Instruction Provided To: Patient AND Family Patient Learns Best By: Multiple Methods Factors Affecting Learning: None Physical Limitations Affecting Learning: None LEARNING RESPONSE Diagnosis: Education Topic: Pre-Op Open Heart Surgery Instructions Teaching Points: Logistics / Protocols /Complication Prevention Instruction/Supplemental Materials: Cardiac Surgery Information Binder Individual Instruction Patient/Family Response: Verbalizes understanding Follow up plan: Patient/Family to call [facility] with any further questions Referral (Recommendation): None Teach completed, topic: Instructions for Bactroban, Hibiclens, and Listerine. Patient will be called with time of surgery. During your visit today, we recorded the following information about you: Allergies As of Date: 05/20/2018 Noted Allergy Reaction LIPITOR (ATORVASTATIN CALCIUM) 11/22/2017 14 - Other: See Comments Comments: Chills and leg pain. Date Reviewed: 05/20/2018 Reviewed by: Danae Rao Ma - Fully Assessed Prescriptions as of 05/20/2018 Sig: PRAVASTATIN 10 MG TABLET Take 1 tablet by mouth every * DILTIAZEM SR 180 MG 24 HR CAP Take 1 capsule by mouth once * TRIAMCINOLONE ACETONIDE 0.1 %* Apply to area twice a day on * ASPIRIN 81 MG TABLET,DELAYED * Take 1 tablet by mouth once d* ADVAIR DISKUS 250 MCG-50 MCG/* USE 1 INHALATION INSTRUCTE* METOPROLOL SUCCINATE ER 25 MG* Take 1 tablet by mouth once d* ALBUTEROL SULFATE HFA 90 MCG/* Inhale 2 Puffs as instructed * Encounter Status:Closed by MOISÉS ZUÑIGA on 05/20/18 BRY Observed: 05/20/2018 Status: COMPLETED Source: [place] 12:[address] [facility] REPOSITORY Letter Text CNCO Observed: 05/13/2018 Status: COMPLETED Source: [place] 12:[address] [facility] REPOSITORY Letter Text CNPN Observed: 05/05/2018 Status: COMPLETED Source: [place] 12:[address] [facility] REPOSITORY Telephone ([facility]) MACIEJ CROWDER ([id number]) 1940 M Date Time Provider Department 05/05/18 ROSALES URBINA TOHSMN During your visit today, we recorded the following information about you: Oswaldo Jean Baptiste RN 05/05/2018 11:53 AM Signed Patient seen in evaluation by Dr. Urbina who wishes to offer surgery. 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 Date Reviewed: 04/28/2018 Reviewed by: Alex Watkins - Fully Assessed Reason for Visit: Pre-Op CTHO Consult [1544] Visit Diagnoses:Pre-operative cardiovascular examination [Z01.810] Aortic valve disorder [I35.9] Atherosclerosis of coronary artery of [place] heart, angina presence unspecified, unspecified vessel or lesion type [I25.10] Order(s):CONSULT TO CARDIOLOGY [9004] Order #: [id number]: 1 CONSULT TO CARDIOTHORACIC SURG [] Order #: [id number]: 1 LD LACTATE DEHYDRO [SQLD6] Order #: [id number] FUTURE UA CHEMSTRIP ONLY [SQUA] Order #: [id number] FUTURE TYPE + SCREEN,30 DAY [BNTYRP55] Order #: [id number]. #:[id number] ACTIVATED PTT [SQPTT] Order #: [id number] FUTURE PROTHROMBIN TIME/PT [SQPT] Order #: [id number] FUTURE CONFIRM BLOOD TYPE [SQCONABO] Order #: [id number]. #:[id number] THYROID/PARATHYROID [[id number]] Order #: [id number]. #:[id number] CAROTID ARTERIES [facility] [[id number]] Order #: [id number] Prescriptions as of 05/05/2018 Sig: PRAVASTATIN 10 MG TABLET Take 1 tablet by mouth every * DILTIAZEM SR 180 MG 24 HR CAP Take 1 capsule by mouth once * TRIAMCINOLONE ACETONIDE 0.1 %* Apply to area twice a day on * ASPIRIN 81 MG TABLET,DELAYED * Take 1 tablet by mouth once d* ADVAIR DISKUS 250 MCG-50 MCG/* USE 1 INHALATION INSTRUCTE* METOPROLOL SUCCINATE ER 25 MG* Take 1 tablet by mouth once d* ALBUTEROL SULFATE HFA 90 MCG/* Inhale 2 Puffs as instructed * Problem List As Of Date 05/05/2018 Noted Resolved 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 Scrotal swelling [N50.89] INVALID FOR* Diverticulosis [K57.90] INVALID FOR* Priority: C Elevated blood pressure reading without diagnos*INVALID FOR* Ex-smoker [Z87.891] INVALID FOR* Priority: C More... Well adult exam [Z00.00] INVALID FOR* Priority: D More... Need for lipid screening [Z13.220] INVALID FOR* More... Severe aortic stenosis [I35.0] INVALID FOR* Priority: A More... Moderate persistent asthma without complication*INVALID FOR* Priority: A More... Eczema [L30.9] INVALID FOR* Priority: D More... More... 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 Disposition: Return for [facility] appointment with Anesthesia. Follow-up and Disposition History Recorded Encounter Status:Closed by OSWALDO JEAN BAPTISTE RN on 05/05/18 HOSP Observed: 05/05/2018 Status: COMPLETED Source: [place] 12:[address] [facility] REPOSITORY Patient:Maciej Crowder MRN: <[id number]> Height:5' 5.5(1.664 m) Weight:161 lb (73.029 kg) Outpatient Medications as of 05/22/18: mupirocin (BACTROBAN) 2 % ointment pravastatin (PRAVACHOL) 10 mg tablet diltiazem CD (CARDIZEM CD) 180 mg 24 hr capsule triamcinolone acetonide (KENALOG) 0.1 % ointment aspirin, enteric coated (ADULT LOW DOSE ASPIRIN) 81 mg EC tablet ADVAIR DISKUS 250-50 mcg/dose dsdv metoprolol succinate ER (TOPROL XL) 25 mg 24 hr tablet albuterol HFA (PROAIR HFA) 90 mcg/actuation inhaler Admission/Clinic Administered Medications as of 05/22/18: Patient has no admission medications. 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] Scrotal swelling [N50.89] Diverticulosis [K57.90] Elevated blood pressure reading without diagnosis of hypertension [R03.0] Ex-smoker [Z87.891] Well adult exam [Z00.00] Need for lipid screening [Z13.220] Severe aortic stenosis [I35.0] Moderate persistent asthma without complication [J45.40] Eczema [L30.9] Dyslipidemia [E78.5] Coronary artery disease due to lipid rich plaque [I25.10, I25.83] Discharge planning issues [Z02.9] Preop testing [Z01.818] Allergies: Lipitor [Atorvastatin Calcium] Date Verified: 05/22/18 Lab Values No results within the last 30 days for the following basenames: K,HCT Progress Notes ([facility]): Moisés Zuñiga, RN, RN 05/20/2018 2:08 PM Signed AMBULATORY PATIENT EDUCATION READINESS TO LEARN Cognitive Ability: Alert and oriented Motivation To Learn: Interested Family Support: High - Very involved in pt care Instruction Provided To: Patient AND Family Patient Learns Best By: Multiple Methods Factors Affecting Learning: None Physical Limitations Affecting Learning: None LEARNING RESPONSE Diagnosis: Education Topic: Pre-Op Open Heart Surgery Instructions Teaching Points: Logistics / Protocols /Complication Prevention Instruction/Supplemental Materials: Cardiac Surgery Information Binder Individual Instruction Patient/Family Response: Verbalizes understanding Follow up plan: Patient/Family to call [facility] with any further questions Referral (Recommendation): None Teach completed, topic: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 disease by catheterization in August 2017 at the [facility]. We will request those films to be sent to our office for review and forward them to the surgeon's office. Continue baby aspirin. Orders Orders: 3. Dyslipidemia E78.5 Plan 3. Hyperlipidemia: We will obtain a fasting lipid profile. His LDL should be less than 70. Continue Pravachol for now. 4. Return office in 6 months. This note was generated using a voice recognition system and there may be incorrect words, spelling or punctuation that were not noted when reviewing the office note prior to saving. Orders Orders: Plan Detail Follow Up +6M (Rafal) Coding Level of Care Code Off vis,est,level 4 Diagnoses Non-rheumatic aortic stenosis I35.0 Atherosclerosis of coronary artery of [place] heart without angina pectoris I25.10 Dyslipidemia E78.5 Coding Level of Care Code Off vis,est,level 4 Diagnoses Non-rheumatic aortic stenosis I35.0 Atherosclerosis of coronary artery of [place] heart without angina pectoris I25.10 Dyslipidemia E78.5 01/21/18 1122 <Electronically signed by Tanvir Lyles MD> Date Tanvir Lyles MD Cosigner Signature: Date (if applicable) CC: Vidal Valdes MD PROGRESS Observed: 11/22/2017 Status: COMPLETED Source: [place] 3:53 PM [facility] REPOSITORY O ID: [id number] Author: Vidal Valdes Service: (none) Author Type: Physician Type: Progress Notes Filed: 11/22/2017 5:24 PM Note Text: Chief Complaint Patient presents with: Recheck HPI Maciej Crowder is a 77 year old male who presents here today for Chronic Medical Conditions.. Patient with hx as reviewed and documented below. Patient was seen per cardio in August. At that time had a stress that came back abnormal in the LCX area. Patient was then taken to cath and found to have minimal disease. No need for stents or surgery just medical management. Patient as placed on lipitor but had to stop do to chills and muscle pain in the legs. Rides a bike when it's nice and no associated symptoms. Past medical history, appointments, medications, allergies reviewed. Previous Medical History PAST MEDICAL HISTORY Diagnosis Date - Aortic stenosis, moderate 08/09/2015 10/19/2014 echocardiogram. - Diverticulitis - Diverticulosis 09/18/2013 - Inguinal hernia without mention of obstruction or gangrene, unilateral or unspecified, (not specified as recurrent) - Moderate persistent asthma without complication 08/09/2015 09/29/14 Spirometry: AOV88-03, 1.45 L/s, 65% pred. +41% post BD 08/09/15 Gabe: 109 (normal < 25). - Multiple fractures of ribs of both sides 2012 Work accident - Other specified type of hydrocele - Pneumothorax 2012 Work accident Previous Surgical History PAST SURGICAL HISTORY Procedure Laterality Date - REPAIR ING HERNIA,5+Y/O,REDUCIBL 04/19/08 Family History FAMILY HISTORY Problem Relation Age of Onset - Negative [OTHER] Other No asthma, allergy. Patient Allergies ALLERGIES No Known Allergies Current Medications Current Outpatient Prescriptions on File Prior to Visit: ADVAIR DISKUS 250-50 mcg/dose dsdv USE 1 INHALATION INSTRUCTED TWICE A DAY RINSE AND GARGLE MOUTH WITH WATER AFTER EACH USE metoprolol succinate ER (TOPROL XL) 25 mg 24 hr tablet Take 1 tablet by mouth once daily. triamcinolone acetonide (KENALOG) 0.1 % ointment Apply to area twice a day on 4 days off 3 days as needed. albuterol HFA (PROAIR HFA) 90 mcg/actuation inhaler Inhale 2 Puffs as instructed every 6 hours as needed. atorvastatin (LIPITOR) 40 mg tablet Take 1 tablet by mouth once daily. No current facility-administered medications on file prior to visit. Social History Social History Marital status: Spouse name: Years of education: Number of children: Occupational History Occupation Employer Comment [employer] [place]. Social History Main Topics Smoking status: Former Smoker Packs/day: 0.00 Years: 0.00 Types: Cigars Smokeless status: Never Used Comment: Occasionally smoked cigars Alcohol use: No Drug use: No Review of Symptoms REVIEW OF SYSTEMS NECK: Negative for lumps, goiter, pain and significant neck swelling RESPIRATORY: Negative for cough, hemoptysis, wheezing, COPD, dyspnea or shortness of breath CARDIOVASCULAR: Negative for chest pain, leg swelling, hypertension, CHF or palpitations GI: No nausea, vomiting, or diarrhea or GERD NEURO: No history of headaches, syncope, paralysis, seizures or tremors EXAM: BP 132/82 (BP Site: Left Arm, BP Position: Sitting, BP Cuff Size: Large Adult) Pulse 78 Resp 18 Wt 72.6 kg (160 lb) BMI 27.46 kg/m2 General Appearance: Well appearing, alert, in no acute distress, well-hydrated, well nourished., Overweight. Neck: Supple, no adenopathy; thyroid symmetric, normal size, no bruits. Lungs: Lungs clear to auscultation. No wheezing, rhonchi, rales. Heart: RRR without gallop, or rubs. No ectopy. Has 2-10/01 defuse LUISA Abdomen: Normal abdominal exam, Abdomen soft, non-tender. Bowel sounds normal. No masses, organomegaly. Extremities: No deformities, edema, skin discoloration . Peripheral Pulses: Normal. Health Maintenance List TETANUS due on 07/29/2016 DIABETES SCREEN due on 09/03/2020 LIPID SCREEN due on 06/07/2022 PROSTATE CANCER SCREENING DISCUSSION Completed ADULT PREVNAR-13 Completed PNEUMOVAX AGE 65 AND OVER WITH 5YR LOOKBACK Completed Data reviewed Component Latest Ref Rng AND Units 09/03/2017 Protein, Total 6.3 - 8.0 g/dL 7.7 Albumin 3.9 - 4.9 g/dL 4.3 Calcium 8.5 - 10.2 mg/dL 8.9 Bilirubin, Total 0.2 - 1.3 mg/dL 0.2 Alkaline Phosphatase 36 - 108 U/L 66 AST 14 - 40 U/L 31 Glucose 74 - 99 mg/dL 121 (H) BUN 9 - 24 mg/dL 21 Creatinine 0.73 - 1.22 mg/dL 0.99 Sodium 136 - 144 mmol/L 134 (L) Potassium 3.7 - 5.1 mmol/L 4.6 Chloride 97 - 105 mmol/L 99 CO2 22 - 30 mmol/L 23 Anion Gap 9 - 18 mmol/L 12 ALT 10 - 54 U/L 27 eGFR- >60 eGFR-All Other Races . >60 A/P ASSESSMENT/PLAN: 1. Coronary artery disease due to lipid rich plaque - ICD9: 414.00, 414.3, ICD10: I25.10, I25.83 (primary diagnosis) - advised to take a baby ASA daily - Will start pravastatin 10 mg every other day. - LIPID PANEL BASIC 2. Moderate persistent asthma without complication - ICD9: 493.90, ICD10: J45.40 Moderate persistent Asthma stable - Avoidance of triggers recommended 3. Dyslipidemia - ICD9: 272.4, ICD10: E78.5 - suboptimal control - Begin treatment with pravastatin (Pravachol) 10 mg - LIPID PANEL BASIC 4. Severe aortic stenosis - ICD9: 424.1, ICD10: I35.0 - Patient to cont cardiac f/u 5. Eczema, unspecified type - ICD9: 692.9, ICD10: L30.9 - Topical steriod tx with Rx for steriod cream/ointment- see orders - discussed skin care of rash - TRIAMCINOLONE ACETONIDE 0.1 % TOPICAL OINTMENT Signed Prescriptions Disp Refills triamcinolone acetonide (KENALOG) 0.1 % ointment 80 g 1 Sig: Apply to area twice a day on 4 days off 3 days as needed. MARLEE: No aspirin, enteric coated (ADULT LOW DOSE ASPIRIN) 81 mg EC tablet Sig: Take 1 tablet by mouth once daily. pravastatin (PRAVACHOL) 10 mg tablet 90 tablet 1 Sig: Take 1 tablet by mouth once daily. F/u 4 months routine 6 months WAE. In 4 moths check FLP and LFT's Time with patient face to face was 25 min Vidal Valdes MD CNOV Observed: 11/22/2017 Status: COMPLETED Source: [place] 3:[address] [facility] REPOSITORY [facility] MACIEJ CROWDER ([id number]) 1940 M Date Time Provider Department 11/22/17 3:40 PM VIDAL VALDES During your visit today, we recorded the following information about you: Pulse Respiration Blood pressure Weight 78/minute 18/minute 132/82 72.6 kg Vidal Valdes MD 11/22/2017 5:24 PM Signed Chief Complaint Patient presents with: Recheck HPI Maciej Crowder is a 77 year old male who presents here today for Chronic Medical Conditions.. Patient with hx as reviewed and documented below. Patient was seen per cardio in August. At that time had a stress that came back abnormal in the LCX area. Patient was then taken to cath and found to have minimal disease. No need for stents or surgery just medical management. Patient as placed on lipitor but had to stop do to chills and muscle pain in the legs. Rides a bike when it's nice and no associated symptoms. Past medical history, appointments, medications, allergies reviewed. Previous Medical History PAST MEDICAL HISTORY Diagnosis Date - Aortic stenosis, moderate 08/09/2015 10/19/2014 echocardiogram. - Diverticulitis - Diverticulosis 09/18/2013 - Inguinal hernia without mention of obstruction or gangrene, unilateral or unspecified, (not specified as recurrent) - Moderate persistent asthma without complication 08/09/2015 09/29/14 Spirometry: SXJ90-00, 1.45 L/s, 65% pred. +41% post BD 08/09/15 Gabe: 109 (normal ANDlt; 25). - Multiple fractures of ribs of both sides 2012 Work accident - Other specified type of hydrocele - Pneumothorax 2012 Work accident Previous Surgical History PAST SURGICAL HISTORY Procedure Laterality Date - REPAIR ING HERNIA,5+Y/O,REDUCIBL 04/19/08 Family History FAMILY HISTORY Problem Relation Age of Onset - Negative [OTHER] Other No asthma, allergy. Patient Allergies ALLERGIES No Known Allergies Current Medications Current Outpatient Prescriptions on File Prior to Visit: ADVAIR DISKUS 250-50 mcg/dose dsdv USE 1 INHALATION INSTRUCTED TWICE A DAY RINSE AND GARGLE MOUTH WITH WATER AFTER EACH USE metoprolol succinate ER (TOPROL XL) 25 mg 24 hr tablet Take 1 tablet by mouth once daily. triamcinolone acetonide (KENALOG) 0.1 % ointment Apply to area twice a day on 4 days off 3 days as needed. albuterol HFA (PROAIR HFA) 90 mcg/actuation inhaler Inhale 2 Puffs as instructed every 6 hours as needed. atorvastatin (LIPITOR) 40 mg tablet Take 1 tablet by mouth once daily. No current facility-administered medications on file prior to visit. Social History Social History Marital status: Spouse name: Years of education: Number of children: Occupational History Occupation Employer Comment [employer] [place]. Social History Main Topics Smoking status: Former Smoker Packs/day: 0.00 Years: 0.00 Types: Cigars Smokeless status: Never Used Comment: Occasionally smoked cigars Alcohol use: No Drug use: No Review of Symptoms REVIEW OF SYSTEMS NECK: Negative for lumps, goiter, pain and significant neck swelling RESPIRATORY: Negative for cough, hemoptysis, wheezing, COPD, dyspnea or shortness of breath CARDIOVASCULAR: Negative for chest pain, leg swelling, hypertension, CHF or palpitations GI: No nausea, vomiting, or diarrhea or GERD NEURO: No history of headaches, syncope, paralysis, seizures or tremors EXAM: BP 132/82 (BP Site: Left Arm, BP Position: Sitting, BP Cuff Size: Large Adult) Pulse 78 Resp 18 Wt 72.6 kg (160 lb) BMI 27.46 kg/m2 General Appearance: Well appearing, alert, in no acute distress, well-hydrated, well nourished., Overweight. Neck: Supple, no adenopathy; thyroid symmetric, normal size, no bruits. Lungs: Lungs clear to auscultation. No wheezing, rhonchi, rales. Heart: RRR without gallop, or rubs. No ectopy. Has 2-3/6 defuse LUISA Abdomen: Normal abdominal exam, Abdomen soft, non-tender. Bowel sounds normal. No masses, organomegaly. Extremities: No deformities, edema, skin discoloration . Peripheral Pulses: Normal. Health Maintenance List TETANUS due on 07/29/2016 DIABETES SCREEN due on 09/03/2020 LIPID SCREEN due on 06/07/2022 PROSTATE CANCER SCREENING DISCUSSION Completed ADULT PREVNAR-13 Completed PNEUMOVAX AGE 65 AND OVER WITH 5YR LOOKBACK Completed Data reviewed Component Latest Ref Rng ANDamp; Units 09/03/2017 Protein, Total 6.3 - 8.0 g/dL 7.7 Albumin 3.9 - 4.9 g/dL 4.3 Calcium 8.5 - 10.2 mg/dL 8.9 Bilirubin, Total 0.2 - 1.3 mg/dL 0.2 Alkaline Phosphatase 36 - 108 U/L 66 AST 14 - 40 U/L 31 Glucose 74 - 99 mg/dL 121 (H) BUN 9 - 24 mg/dL 21 Creatinine 0.73 - 1.22 mg/dL 0.99 Sodium 136 - 144 mmol/L 134 (L) Potassium 3.7 - 5.1 mmol/L 4.6 Chloride 97 - 105 mmol/L 99 CO2 22 - 30 mmol/L 23 Anion Gap 9 - 18 mmol/L 12 ALT 10 - 54 U/L 27 eGFR- ANDgt;60 eGFR-All Other Races . ANDgt;60 A/P ASSESSMENT/PLAN: 1. Coronary artery disease due to lipid rich plaque - ICD9: 414.00, 414.3, ICD10: I25.10, I25.83 (primary diagnosis) - advised to take a baby ASA daily - Will start pravastatin 10 mg every other day. - LIPID PANEL BASIC 2. Moderate persistent asthma without complication - ICD9: 493.90, ICD10: J45.40 Moderate persistent Asthma stable - Avoidance of triggers recommended 3. Dyslipidemia - ICD9: 272.4, ICD10: E78.5 - suboptimal control - Begin treatment with pravastatin (Pravachol) 10 mg - LIPID PANEL BASIC 4. Severe aortic stenosis - ICD9: 424.1, ICD10: I35.0 - Patient to cont cardiac f/u 5. Eczema, unspecified type - ICD9: 692.9, ICD10: L30.9 - Topical steriod tx with Rx for steriod cream/ointment- see orders - discussed skin care of rash - TRIAMCINOLONE ACETONIDE 0.1 % TOPICAL OINTMENT Signed Prescriptions Disp Refills triamcinolone acetonide (KENALOG) 0.1 % ointment 80 g 1 Sig: Apply to area twice a day on 4 days off 3 days as needed. MARLEE: No aspirin, enteric coated (ADULT LOW DOSE ASPIRIN) 81 mg EC tablet Sig: Take 1 tablet by mouth once daily. pravastatin (PRAVACHOL) 10 mg tablet 90 tablet 1 Sig: Take 1 tablet by mouth once daily. F/u 4 months routine 6 months WAE. In 4 moths check FLP and LFT's Time with patient face to face was 25 min MD Vidal Wilson MD 11/22/2017 4:10 PM Signed Please get fasting lab in the next 1-2 weeks for cholesterol. Please get fasting labs on or after 03/24/2018 for cholesterol medication follow-up. The script for the new medication Pravastatin 10 mg will say take one daily. You are to take one every other day. Please take a baby aspirin every day. Referring Provider: VIDAL VALDES [[id number]] Allergies As of Date: 11/22/2017 Noted Allergy Reaction LIPITOR (ATORVASTATIN CALCIUM) 11/22/2017 14 - Other: See Comments Comments: Chills and leg pain. Date Reviewed: 11/22/2017 Reviewed by: Vidal Valdes - Fully Assessed Reason for Visit: Recheck [92] Primary Visit Diagnosis:Coronary artery disease due to lipid rich plaque [I25.10, I25.83] Comment:mild disease per cath 08/2017 Other Visit Diagnoses:Moderate persistent asthma without complication [J45.40] Dyslipidemia [E78.5] Severe aortic stenosis [I35.0] Eczema, unspecified type [L30.9] Comment:right lower leg, chroic Order(s):triamcinolone acetonide (KENALOG) 0.1 % ointmentApply to area twice a day on 4 days off 3 days as needed.Disp: 80 gRfl: 1 aspirin, enteric coated (ADULT LOW DOSE ASPIRIN) 81 mg EC tabletTake 1 tablet by mouth once daily.Disp: Rfl: pravastatin (PRAVACHOL) 10 mg tabletTake 1 tablet by mouth once daily.Disp: 90 tabletRfl: 1 LIPID PANEL BASIC [SQLIPB] Order #: [id number] FUTURE HEPATIC FUNCTION PNL [SQHFP] Order #: [id number] FUTURE LIPID PANEL BASIC [SQLIPB] Order #: [id number] FUTURE Prescriptions as of 11/22/2017 Sig: TRIAMCINOLONE ACETONIDE 0.1 %* Apply to area twice a day on * ADVAIR DISKUS 250 MCG-50 MCG/* USE 1 INHALATION INSTRUCTE* METOPROLOL SUCCINATE ER 25 MG* Take 1 tablet by mouth once d* ALBUTEROL SULFATE HFA 90 MCG/* Inhale 2 Puffs as instructed * ASPIRIN 81 MG TABLET,DELAYED * Take 1 tablet by mouth once d* PRAVASTATIN 10 MG TABLET Take 1 tablet by mouth once d* Medication notes this encounter ATORVASTATIN 40 MG TABLET >> Dionne To 11/22/2017 3:39 PM >> DIONNE TO SatNov 22, 2017 3:39 PM Patient stopped taking. DILTIAZEM SR 180 MG 24 HR CAP >> Dionne To 11/22/2017 3:41 PM >> DIONNE TO SatNov 22, 2017 3:41 PM Patient no longer taking. 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 Scrotal swelling [N50.89] INVALID FOR* Diverticulosis [K57.90] INVALID FOR* Priority: C Elevated blood pressure reading without diagnos*INVALID FOR* Ex-smoker [Z87.891] INVALID FOR* Priority: C More... Well adult exam [Z00.00] INVALID FOR* Priority: D More... Need for lipid screening [Z13.220] INVALID FOR* More... Severe aortic stenosis [I35.0] INVALID FOR* Priority: A More... Moderate persistent asthma without complication*INVALID FOR* Priority: A More... Eczema [L30.9] INVALID FOR* Priority: D More... More... 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 Other instructions from your clinician: Please get fasting lab in the next 1-2 weeks for cholesterol. Please get fasting labs on or after 03/24/2018 for cholesterol medication follow-up. The script for the new medication Pravastatin 10 mg will say take one daily. You are to take one every other day. Please take a baby aspirin every day. Prescriptions ordered this encounter Disp Refills Start End TRIAMCINOLONE ACETONIDE 0.1 % TOPICA* 80 g 1 11/22/2017 Sig: Apply to area twice a day on 4 days off 3 days as needed. ASPIRIN 81 MG TABLET,DELAYED RELEASE 11/22/2017 Class: Med Update Route: ORAL Sig: Take 1 tablet by mouth once daily. PRAVASTATIN 10 MG TABLET 90 t* 1 11/22/2017 Route: ORAL Sig: Take 1 tablet by mouth once daily. Medications Discontinued During This Encounter benzonatate (LUZ SHIELDS) 100 mg* 20 c* 0 09/02/2017 11/22/2017 Route: ORAL Sig: Take 2 capsules by mouth three times daily as needed for Cough. Disc: Reason for discontinue is not on file. diltiazem CD (CARDIZEM CD) 180 mg 24* 90 c* 3 05/31/2017 11/22/2017 Route: ORAL Sig: Take 1 capsule by mouth once daily. Disc: Discontinued by another Health Care Provider atorvastatin (LIPITOR) 40 mg tablet 90 t* 1 09/03/2017 11/22/2017 Route: ORAL Sig: Take 1 tablet by mouth once daily. Disc: Adverse Reaction triamcinolone acetonide (KENALOG) 0.* 80 g 1 11/16/2016 11/22/2017 Sig: Apply to area twice a day on 4 days off 3 days as needed. Disc: Reason for discontinue is not on file. Disposition: Return in about 6 months (around 05/24/2018) for complete PE. Follow-up and Disposition History Recorded Encounter Status:Closed by VIDAL VALDES on 11/22/17 PT ED Observed: 09/17/2017 Status: COMPLETED Source: [place] 5:[address] [facility] REPOSITORY HNO ID: [id number] Author: [facility] Provider Service: (none) Author Type: Physician Type: Patient Education Filed: 09/17/2017 5:16 PM Note Text: [facility] Patient Education Report --------- Name: MACIEJ CROWDER Date: 09/17/2017 Time: 5:15 PM Patient Ordered Video: After Your Catheter Based Procedure from [id number] via phone number [phone] at 5:15 PM NURSING PROG Observed: 09/17/2017 Status: COMPLETED Source: [place] 5:[address] [facility] REPOSITORY HNO ID: [id number] Author: Yesenia (Rn) CHERI Sosa Service: Nursing Author Type: Registered Nurse Type: Nursing Progress Note Filed: 09/17/2017 5:23 PM Note Text: Nursing Progress Note Patient Name: Maciej Crowder Patient Location: [place] [address]/[id number] Daily Note:1640 Vasc band removed. No bleeding or hematoma. DSD applied. 1700 Pt ambulated to the restroom and in the tenorio. No dizziness. Steady gait. 1715 PIVs dc'd This note was completed by: Yesenia Sosa, RN PT ED Observed: 09/17/2017 Status: COMPLETED Source: [place] 2:[address] [facility] REPOSITORY HNO ID: [id number] Author: [facility] Provider Service: (none) Author Type: Physician Type: Patient Education Filed: 09/17/2017 2:07 PM Note Text: [facility] Patient Education Report --------- Name: MACIEJ CROWDER Date: 09/17/2017 Time: 2:07 PM Patient Ordered Video: Inpatient Falls from [id number] via phone number [phone] at 2:07 PM PROTIME Collected: 09/03/2017 Status: F Source: [place] 6:[address] [facility] REPOSITORY TYPE CODE TESTS RESULT OUT OF RANGE REFERENCE UNITS LAB PSEC 9.7-13.0 sec PT Sec 10.9 LAB INR 0.9-1.3 PT INR 1.1 Result Comment: Vitamin K Antagonist (VKA) Therapeutic Range: INR 2 to 3 (Target INR of 2.5) Note: For patients treated with VKA drugs, such as warfarin, the [place] [employer] 2012 Guideline recommends a therapeutic INR range of 2 to 3 (target INR of 2.5). This recommendation includes high-risk patients with antiphospholipid syndrome with previous arterial or venous thromboembolism, current-generation mechanical or bioprosthetic aortic heart valve replacement. Note: Patients with mechanical aortic valve replacement and additional risk factors for thromboembolic events (atrial fibrillation, previous thromboembolism, LV dysfunction, hypercoagulable conditions) or an older generation mechanical AVR (i.e., ball in-Cage) or any mechanical MVR should have a INR therapeutic range of 2.5 to 3.5 (target INR of 3). Suleiman GH, et al. Chest 2012, 141:7S-47S Celina RA, et al. [facility] 2017, 70: 252-289 Performed By: #### PT, CBC, CMP #### [facility] [employer] [address], [place] [address] CBC Collected: 09/03/2017 Status: F Source: [place] 6:[address] [facility] REPOSITORY TYPE CODE TESTS RESULT OUT OF REFERENCE UNITS RANGE LAB WBC 3.70-11.00 k/uL WBC 5.37 LAB RBC 4.20-6.00 m/uL RBC 4.47 LAB HGB 13.0-17.0 g/dL Hemoglobin 14.3 LAB HCT 39.0-51.0 % Hematocrit 42.8 LAB MCV 80.0-100.0 fL MCV 95.7 LAB MCH 26.0-34.0 pG MCH 32.0 LAB MCHC 30.5-36.0 g/dL MCHC 33.4 LAB RDWCV 11.5-15.0 % RDW-CV 13.0 LAB PLTCT 150-400 k/uL Platelet Count 191 LAB MPV 9.0-12.7 fL MPV 10.5 LAB ABSNUC <0.01 k/uL Absolute nRBC <0.01 Performed By: #### PT, CBC, CMP #### [facility] [employer] [address] [place], [place] [address] COMP METABOLIC PANEL Collected: 09/03/2017 Status: F Source: [place] 6:34 [facility] REPOSITORY TYPE CODE TESTS RESULT OUT OF REFERENCE UNITS RANGE LAB TP 6.3-8.0 g/dL Protein, Total 7.7 LAB ALB 3.9-4.9 g/dL Albumin 4.3 LAB CA 8.5-10.2 mg/dL Calcium, Total 8.9 LAB TBIL 0.2-1.3 mg/dL Bilirubin, Total 0.2 LAB ALKP 36-108 U/L Alkaline Phosphatase 66 LAB AST 14-40 U/L AST 31 LAB GLU 74-99 mg/dL Glucose High 121 Result Comment: The [place] [employer] (ADA) provides guidance for cutoff values for fasting glucose and random glucose. The ADA defines fasting as no caloric intake for at least 8 hours. Fas ting plasma glucose results between 100 to 125 mg/dL indicate increased risk for diabetes (prediabetes). Fasting plasma glucose results greater than or equal to 126 mg/dL meet the criteria for diagnosis of diabetes. In the absence of unequivocal hyperglycemia, results should be confirmed by repeat testing. In a patient with classic symptoms of hyperglycemia or hyperglycemic crisis, random plasma glucose results greater than or equal to 200 mg/dL meet the criteria for diagnosis of diabetes. Reference: Standards of Medical Care in Diabetes 2016, [place] [employer]. Diabetes Care. 2016.39(Suppl 1). LAB BUN 9-24 mg/dL BUN 21 LAB CRET 0.73-1.22 mg/dL Creatinine 0.99 LAB NA 136-144 mmol/L Sodium Low 134 LAB K 3.7-5.1 mmol/L Potassium 4.6 LAB CL 97-105 mmol/L Chloride 99 LAB CO2 22-30 mmol/L CO2 23 LAB AGAP 9-18 mmol/L Anion Gap 12 LAB ALT 10-54 U/L ALT 27 LAB GFRAA eGFR- Amer. >60 LAB GFRNAA . eGFR-All Other Races >60 Result Comment: eGFR (Estimated GFR) Units of measure: mL/min/1.73 meters squared eGFR is derived from the reexpressed MDRD Study equation using the following parameters: serum creatinine, age, gender and race. The creatinine assay has been calibrated to be traceable to IDMS. An eGFR <60 mL/min/1.73m2 for >3 months is consistent with chronic kidney disease. Refer to KDOQI guidelines for clinical interpretation. In patients with unstable renal function, e.g. those with acute kidney injury, the eGFR may not accurately reflect actual GFR. Performed By: #### PT, CBC, CMP #### [facility] [address] [place], [place] [address] PROGRESS Observed: 09/03/2017 Status: COMPLETED Source: [place] 2:08 PM [facility] REPOSITORY HNO ID: [id number] Author: Katie Arevalo Service: (none) Author Type: Physician Type: Progress Notes Filed: 09/03/2017 5:38 PM Note Text: [facility] [place] Cici Magallanes Department of Cardiovascular Medicine SECTION OF REGIONAL CARDIOLOGY CHILO: 05/23/17 HPI: Maciej Crowder is a 77 year old male who is here today for follow-up of aortic stenosis. He denies any other medical issues other than asthma and sees Dr. Mcclure. He has had a murmur noted in the past and prior echocardiogram done at [facility] in April 2014 suggested aortic stenosis however there were no specific gradient or valve area measurements due to suboptimal study. Most recent echocardiogram on 11/23/16 was compared to that of September 2014. His last studies showed EF of 54%, grade 1 diastolic dysfunction, mild left atrial enlargement, possible severe stenosis with peak gradient of 55 and mean of 33. Aortic valve area was 0.73 cm?. His gradients in 2014 wore peak of 34 and mean of 19 and the valve area was greater than 1 cm?. He denies any symptoms. He is unlimited in his physical activities. He is quite active. He denies any lightheaded spells, syncope, dizziness, near syncope, chest pain, shortness of breath or dyspnea on exertion. He does have episodes of asthma with some shortness of breath however these seem to be better with bronchodilators. He denies any hypertension the past however his blood pressure evaluations during this visit were extremely high. His initial blood pressure upon arrival was 200/94 in the right arm and 198/90 left arm. The repeated values after 10 minutes or 180/92 and 178/90. We did a stress test since last visit on 08/28/17 and this was abnormal as described below. The patient is involved in sporadic irregular exercise Patient is currently asymptomatic. Patient denies chest pain, dizziness, lightheadedness, palpitations, lower extremity edema, PND, orthopnea, presyncope, syncope or claudication symptoms. PAST MEDICAL HISTORY Diagnosis Date - Aortic stenosis, moderate 08/09/2015 10/19/2014 echocardiogram. - Diverticulitis - Diverticulosis 09/18/2013 - Inguinal hernia without mention of obstruction or gangrene, unilateral or unspecified, (not specified as recurrent) - Moderate persistent asthma without complication 08/09/2015 09/29/14 Spirometry: GTB07-90, 1.45 L/s, 65% pred. +41% post BD 08/09/15 Gabe: 109 (normal < 25). - Multiple fractures of ribs of both sides 2012 Work accident - Other specified type of hydrocele - Pneumothorax 2012 Work accident PAST SURGICAL HISTORY Procedure Laterality Date - REPAIR ING HERNIA,5+Y/O,REDUCIBL 04/19/08 FAMILY HISTORY Problem Relation Age of Onset - Negative [Other] [OTHER] No asthma, allergy. SOCIAL HISTORY Social History Marital status: Spouse name: Years of education: Number of children: Occupational History Occupation Employer Comment [employer]* [place]. Social History Main Topics Smoking status: Former Smoker Packs/day: 0.00 Years: 0.00 Types: Cigars Smokeless status: Never Used Comment: Occasionally smoked cigars Alcohol use: No Drug use: No ALLERGIES: Review of patient's allergies indicates no known allergies. CURRENT MEDICATIONS: Current Outpatient Prescriptions: doxycycline (VIBRA-TABS) 100 mg tablet Take 1 tablet by mouth twice daily for 10 days. predniSONE (DELTASONE) 20 mg tablet Take 1 tablet by mouth twice daily for 5 days. diltiazem CD (CARDIZEM CD) 180 mg 24 hr capsule Take 1 capsule by mouth once daily. triamcinolone acetonide (KENALOG) 0.1 % ointment Apply to area twice a day on 4 days off 3 days as needed. fluticasone-salmeterol (ADVAIR DISKUS) 250-50 mcg/dose dsdv Inhale 1 Puff as instructed twice daily. RINSE AND GARGLE MOUTH WITH WATER AFTER EACH USE. albuterol HFA (PROAIR HFA) 90 mcg/actuation inhaler Inhale 2 Puffs as instructed every 6 hours as needed. benzonatate (TESSALON PERLES) 100 mg capsule Take 2 capsules by mouth three times daily as needed for Cough. No current facility-administered medications for this visit. ROS: Card: See present history. Pulm: See HPI Gastro: No nausea, vomiting, or diarrhea GenUr: No history of dysuria, frequency or incontinence Endo: Negative for cold or heat intolerance, polyuria or polydipsia. Neuro: no focal weakness, focal sensory loss, headache, visual changes, seizure activity, ataxia, speech/language loss. Musculoskeletal: Negative for joint or muscle pain, back pain, or swelling. Infect: no fevers, chills, rigors or night sweats. Skin: Negative for lesions, rash, and itching. Heme: Negative for prolonged bleeding, bruising easily or swollen nodes. The remainder of the review of systems is negative. PHYSICAL EXAMINATION: GENERAL: alert cooperative, pleasant oriented x 3 (self, time and place) in no acute distress BP 158/88 (BP Site: Right Arm, BP Position: Sitting, BP Cuff Size: Regular Adult) Pulse 88 Ht 162.6 cm (5' 4) Wt 71.6 kg (157 lb 12.8 oz) SpO2 94% BMI 27.09 kg/m2 Last 3 Encounter BP Readings: Date: BP: 01/16/2017 200/94[LA 198/90 After 10 min. RA 164/92 LA 162/82[ 11/16/2016 148/82 09/27/2016 130/74 Last 3 Encounter Pulse Readings: Date: Pulse: 01/16/2017 77 11/16/2016 88 09/27/2016 92 Last 3 Encounter Wt Readings: Date: Wt: 01/16/2017 72.2 kg (159 lb 1.6 oz) 11/16/2016 72.1 kg (159 lb) 09/27/2016 72.1 kg (159 lb) SKIN: warm, dry, no rash. NECK: supple, no palpable masses, no JVD, carotids well felt, no bruits. CARDIAC: [place] palpable in the 5th intercostal space mid clavicular line, normal S1 and S2, systolic ejection murmur 3/6 left sternal border-intercostal space, no gallops, or rubs. CHEST: Normal respiratory efforts, lungs clear to auscultation bilaterally. ABDOMEN: Soft, no tenderness, rigidity, or masses. No palpable liver or spleen. Normal bowel sounds, no bruits. NEURO: intact cranial nerves II through XII, no motor or sensory deficits in all 4 extremities. EXTREMITIES: No cyanosis, clubbing, or edema. Peripheral pulses well felt. CARDIAC (AND OTHER IMPORTANT) TESTING: The following testing (including images and tracings) were personally reviewed by myself: ETBrian MPI 08/28/16: CONCLUSIONS: ?1. SPECT Perfusion Study: Abnormal. ?2. There is moderate (10-20%) ischemia in the territory of the LCX. ?3. Left ventricle is normal in size. The left ventricle systolic function is low normal. ?4. Poor functional capacity for age and gender. ?5. Right ventricle is normal in size. ?6. There is a drop in Ejection Fraction post stess. ?7. This is a high risk scan. 8. Blunted to decreased BP response. 9. ST segment depression and elevation in AVR,AVL resolving 13 min in recovery (patient with known significant ) ?? Rest, Stress ?LVEF % 61 52 Stress Test Findings: The stress test was terminated due to the following: EKG Changes. Peak HR 113 bpm. Exercise duration 7 min 31 sec. (79 % MPHR) (4.3 METS) Peak BP 180 mmHg/92 mmHg Patient experienced shortness of breath during stress. Stress ECG showed ST depression, normal sinus rhythm and premature ventricular contraction. Stress complications: none. 05/23/17: CONCLUSIONS: - Technically difficult exam due to body habitus. - Exam indication: Aortic stenosis - The left ventricle is normal in size. There is moderate septal left ventricular hypertrophy. Left ventricular systolic function is normal. EF = 56 ? 5% (2D 4-ch.) ?Grade I left ventricular diastolic dysfunction. - The right ventricle is normal in size. Right ventricular systolic function is normal. - The left atrial cavity is mildly dilated. - There is severe aortic valve stenosis caused by calcified valve and restricted opening. AV area is 0.81 cm? (0.45 cm?/m?) by continuity, VTI. The peak gradient is 61 mmHg, the mean gradient is 36 mmHg and the dimensionless valve index is 0.18. - There is no patent foramen ovale as detected by Doppler. - Exam was compared with the prior echocardiographic exam performed on 11/23/2016. 11/23/16: CONCLUSIONS: - Technically difficult exam due to body habitus. - Exam indication: Aortic valve disorder - The left ventricle is normal in size. There is mild concentric left ventricular hypertrophy. Left ventricular systolic function is normal. EF = 54 ? 5% (2D biplane) Grade I left ventricular diastolic dysfunction. - The right ventricle is normal in size. Right ventricular systolic function is normal. - The left atrial cavity is mildly dilated. - There is severe aortic valve stenosis caused by calcified valve and restricted opening. AV area is 0.73 cm? (0.40 cm?/m?) by continuity, VTI. The peak gradient is 55 mmHg, the mean gradient is 33 mmHg and the dimensionless valve index is 0.24. - Exam was compared with the prior echocardiographic exam performed on 10/19/2014. Aortic valve stenosis has progressed from moderate to severe LABS: Cholesterol, Total (mg/dL) Date Value 06/07/2017 211 HDL Cholesterol (mg/dL) Date Value 06/07/2017 52 LDL Cholesterol (mg/dL) Date Value 06/07/2017 150 Triglyceride (mg/dL) Date Value 06/07/2017 47 ASSESSMENT/PLAN: 1. Nonrheumatic aortic valve stenosis - Moderate severe, Pk/Mn 61/36, LISY 0.80 cm? - EF 56% - Blunted to decreased BP response during treadmill test 2. Essential hypertension - Improved but still suboptimal control - Start beta sharon today - Started Cardizem CD 180 mg qd last visit 04/2017 - Encouraged dietary sodium restriction/DASH diet - Recommended regular aerobic exercise. - Discussed need and benefit for weight loss. - Reviewed risks of HTN and principles of treatment - Goal of BP <130/80 His most recent echocardiogram on 10/26/17 showed EF of 56%, grade 1 diastolic dysfunction, mild left atrial enlargement, possible severe stenosis with peak gradient of 61 and mean of 36. Aortic valve area was 0.80 cm?. His gradients in 2015 were peak of 34 and mean of 19 and the valve area was greater than 1 cm?. He denies any lightheaded spells, syncope, dizziness, near syncope, chest pain, shortness of breath or dyspnea on exertion however his functional capacity is poor as demonstrated on treadmill and his family feels that he is somewhat stoic with his symptoms. He did have a myocardial perfusion imaging stress test on 08/28/17. He achieved 7 minutes and 31 seconds of Tyrell protocol for 4.3 METs however only 79% of age-predicted maximal heart rate making it a submaximal study. He had marked ST segment changes with depression as well as elevation in aVR and aVL lasting approximately 13 minutes into recovery. He did not have any chest discomfort. He did have shortness of breath. He also had a blunted to decreased blood pressure response with exercise. His ejection fraction response was also blunted or slightly decreased. I had a long discussion with Mr. Crowder, his and daughter regarding his finding of suspected severe to severe aortic stenosis as well as possible circumflex ischemia supported by his recent submaximal stress test at relatively poor functional capacity. I recommended he undergo coronary angiography and then CT surgery consult for possible AVR and CABG if supported by his pending angiography results. I will beta sharon, aspirin and statin and have referred him for cardiac catheterization at [facility]. He and his family are in agreement and will continue close follow up as well as notifying us of any change in symptoms. Thank you for allowing me the privilege of participating in the care of your patient. Please do not hesitate to contact me if there are any questions. Katie Arevalo, , FACC, FCCP, FACOI CC: Vidal Valdes MD [address] [place] [address] PROGRESS Observed: 09/02/2017 Status: COMPLETED Source: [place] 6:[address] [facility] REPOSITORY HNO ID: [id number] Author: Key Galan) Dianna Crowder Service: (none) Author Type: Nurse Research Type: Progress Notes Filed: 09/02/2017 6:31 PM Note Text: Radiology Service Progress Note PATIENT NAME: Maciej Crowder DATE OF SERVICE: September 02, 2017 TIME: 6:31 PM PATIENT IDENTITY VERIFICATION COMPLETED USING TWO (2) METHODS: Patient confirmed name verbally and Date of . PATIENT GENDER DATA: Male PATIENT RELEVANT IMPLANT DATA REVIEWED: Not Applicable RADIOLOGY DEPARTMENT: General X-ray: Exam(s) Completed: Chest X-Ray PERIPHERAL IV DATA: Not applicable SIGNED BY: RT Lilia September 02, 2017 6:31 PM XR CHEST 2V FRONTAL/LAT Observed: 09/02/2017 Status: F Source: [place] 6:[address] [facility] REPOSITORY * * *Final Report* * * DATE OF EXAM: Sep 02 2017 6:30PM WOX 5291 - XR CHEST 2V FRONTAL/LAT / PROCEDURE REASON: Cough * * * * Physician Interpretation * * * * EXAMINATION: CHEST RADIOGRAPH (2 VIEW FRONTAL and LATERAL) Clinical History: Cough M: XC2_4 Comparison: Outside XR 08/19/2014 RESULT: Lines, Tubes, and Devices: N/A Lungs and Pleura: Mildly increased vague opacities in the right lower lobe. Mild right greater than left bibasilar subsegmental atelectasis. No pulmonary edema. No pleural effusion. No pneumothorax. Anterior right hemidiaphragm eventration, unchanged. Cardiomediastinal silhouette: Stable contour. Tortuous thoracic aorta with calcifications. Other: Diffuse osteopenia with mild compression deformity of a few mid thoracic vertebrae, unchanged. Degenerative changes of the spine. IMPRESSION: Mildly increased opacities in the right lower lobe compared to 08/19/2014 concerning for infection or inflammation. Recommend radiographic follow-up to resolution. Laminating Machine Tender: PSCB Transcribe Date/Time: Sep 02 2017 6:40P Dictated by : CHRISTINE BURTON MD This examination was interpreted and the report reviewed and electronically signed by: CHRISTINE BURTON MD on Sep 02 2017 6:44PM EST [id number] Observed: 09/02/2017 Status: COMPLETED Source: [place] 6:[address] [facility] REPOSITORY HNO ID: [id number] Author: Anibal Sommers) Lei Service: (none) Author Type: Physician Consulting Networking Engineer Type: Progress Notes Filed: 09/02/2017 7:23 PM Note Text: HPI Pt presents with cough x 5 days. He is a former smoker and quit 5 years ago. He had pneumothorax from trauma 5 years ago. He is having some rib pain with cough and shortness of breath. He denies being told he has COPD however. He does use an albuterol inhaler and his has been telling him to use ist more. No fever or chills. Review of Systems Constitutional: Negative for chills and fever. HENT: Positive for congestion. Negative for ear pain and sore throat. Eyes: Negative. Respiratory: Positive for cough, shortness of breath and wheezing. Negative for hemoptysis and sputum production. Cardiovascular: Rib pain with cough Gastrointestinal: Negative. Genitourinary: Negative. Musculoskeletal: Negative. Skin: Negative. Neurological: Negative. Endo/Heme/Allergies: Negative. Psychiatric/Behavioral: Negative. All other systems reviewed and are negative. Physical Exam Constitutional: He is oriented to person, place, and time and well-developed, well-nourished, and in no distress. HENT: Head: Normocephalic and atraumatic. Right Ear: External ear normal. Left Ear: External ear normal. Nose: Nose normal. Mouth/Throat: Oropharynx is clear and moist. Neck: Normal range of motion. Neck supple. Cardiovascular: Normal rate, regular rhythm and normal heart sounds. Pulmonary/Chest: Effort normal. No respiratory distress. He has wheezes. He has no rales. He exhibits no tenderness. Mild expiratory wheeze diffusely Lymphadenopathy: He has no cervical adenopathy. Neurological: He is alert and oriented to person, place, and time. Skin: Skin is warm and dry. No rash noted. Psychiatric: Affect and judgment normal. Nursing note and vitals reviewed. 09/02/2017 ?6:46 PM - Interface, Results In Impression IMPRESSION: Mildly increased opacities in the right lower lobe compared to 08/19/2014 concerning for infection or inflammation. ?Recommend radiographic follow-up to resolution. ASSESSMENT/PLAN: 1. Cough - ICD9: 786.2, ICD10: R05 (primary diagnosis) - XR CHEST 2V FRONTAL/LAT - ALBUTEROL SULFATE CONCENTRATE 5 MG/ML(0.5 %) SOLUTION FOR NEBULIZATION 2. Pneumonia of right lower lobe due to infectious organism (HCC) - ICD9: 486, ICD10: J18.1 Pt o2 came up to 93% after a treatment. He is very well appearing here and afebrile. I will start him on doxycycline and prednisone as well as tessalon. Discussed that he needs to use his inhaler every 6 hours over hte next 2-3 days ans see his pcp by the end of the week to make sure he is improving. He and his agreed with this. Discussed with patient concerning symptoms to go to the emergency department or follow up here. Pt agreeable with this plan. TRENA Hendricks CARDIAC PERF Observed: 08/28/2017 Status: F Source: [place] STRESS/EXERCISE 12:50 PM CLINIC OTHER CAMPUS REPOSITORY * * *Final Report* * * DATE OF EXAM: Aug 28 2017 12:50PM [facility] CARDIAC PERF STRESS/EXERCISE / PROCEDURE REASON: severe aortic stenosis u35.0 mild intermittent asthma with exacerbatioin j45.21 * * * * Physician Interpretation * * * * PATIENT: Name: VEL Londono Age: 77 years Gender: M CONCLUSIONS: 1. SPECT Perfusion Study: Abnormal. 2. There is moderate (10-20%) ischemia in the territory of the LCX. 3. Left ventricle is normal in size. The left ventricle systolic function is low normal. 4. Poor functional capacity for age and gender. 5. Right ventricle is normal in size. 6. There is a drop in Ejection Fraction post stess. 7. This is a high risk scan. 8. Blunted to decreased BP response. 9. ST segment depression and elevation in AVR,AVL resolving 13 min in recovery (patient with known significant ) 1 LVEF % 61 52 Prior Study Comparison No prior nuclear cardiology exam available for comparison. Nuclear Med Report:1-Day [id number] Exercise Stress Gated SPECT: Myocardial perfusion imaging was performed at rest 30 to 60 minutes following the IV injection of Tc-99m tetrofosmin. One minute prior to peak exercise, the patient was injected IV with Tc-99m tetrofosmin. Gated post stress tomographic imaging was performed 10 to 20 minutes later. See administered doses below. [facility] Date of service: 08/28/2017 9:59:34 AM Indication: Assessment for suspected CAD and Dyspnea. Interpreting physician: Katie Arevalo DO Patient History: History of hypertension and Prior smoker. Medications currently taking are Ca Sharon. Height: 162.56 cm BSA: 1.78 m? Weight: 70.31 kg BMI: 26.6 kg/m? Primary Rhythm: Sinus, PVC and LVH. Secondary Rhythm: Sinus and Non-Specific ST/T Wave Changes. Exam Type: Rest Stress Radiopharm: Tc-99m Tetrofosmin Tc-99m Tetrofosmin Dosage(mCi): 12.7 31.8 Atten Correction: not performed not performed Stress Agent: Treadmill Resting Heart Rate: 84 bpm Resting Blood Press: 170/78 mmHg Image Quality The overall study imaging quality was deemed to be good. FINDINGS: 1 LVEF: 61 % 52 % Perfusion Findings 1 - There is a moderate perfusion defect in the inferior wall and mid inferolateral segment. There is a mild perfusion defect in the anterolateral wall, basal inferolateral segment, and apical lateral segment. 1 LEFT VENTRICLE The left ventricle is normal in size. Left ventricular systolic function is low normal. There is mild left ventricular hypertrophy. Right Ventricle The right ventricle is normal in size. Stress Test Findings: The stress test was terminated due to the following: EKG Changes. Peak HR 113 bpm. Exercise duration 7 min 31 sec. (79 % MPHR) (4.3 METS) Peak BP 180 mmHg/92 mmHg Patient experienced shortness of breath during stress. Stress ECG showed ST depression, normal sinus rhythm and premature ventricular contraction. Stress complications: none. Final Laminating Machine Tender: CALNI Transcrianabelle Date/Time: Aug 28 2017 9:59A Dictated by : KATIE AREVALO DO This examination was interpreted and the report reviewed and electronically signed by: KATIE AREVALO DO on Aug 28 2017 2:14PM EST [id number] CNPN Observed: 08/27/2017 Status: COMPLETED Source: [place] 12:00 AM [facility] REPOSITORY Telephone (CDLBME) MACIEJ CROWDER ([id number]) 1940 M Date Time Provider Department 08/27/17 PHUONG DOE (RN) CDLBME During your visit today, we recorded the following information about you: Phuong Doe RN, RN 08/27/2017 12:40 PM Signed Spoke with patient regarding reminder for stress test tomorrow and given instructions Allergies As of Date: 08/27/2017 (No Known Allergies) Date Reviewed: 05/24/2017 Reviewed by: Irish Pireto Ma - Fully Assessed Reason for Visit: Reminder Call [[id number]] Prescriptions as of 08/27/2017 Sig: DILTIAZEM SR 180 MG 24 HR CAP Take 1 capsule by mouth once * TRIAMCINOLONE ACETONIDE 0.1 %* Apply to area twice a day on * FLUTICASONE 250 MCG-SALMETERO* Inhale 1 Puff as instructed t* ALBUTEROL SULFATE HFA 90 MCG/* Inhale 2 Puffs as instructed * Problem List As Of Date 08/27/2017 Noted Resolved 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 Scrotal swelling [N50.89] INVALID FOR* Diverticulosis [K57.90] INVALID FOR* Priority: C Elevated blood pressure reading without diagnos*INVALID FOR* Ex-smoker [Z87.891] INVALID FOR* Priority: C More... Well adult exam [Z00.00] INVALID FOR* Priority: D More... Need for lipid screening [Z13.220] INVALID FOR* More... Severe aortic stenosis [I35.0] INVALID FOR* Priority: A More... Moderate persistent asthma without complication*INVALID FOR* Priority: A More... Eczema [L30.9] INVALID FOR* Priority: D More... More... Dyslipidemia [E78.5] INVALID FOR* Priority: A Encounter Status:Closed by PHUONG DOE on 08/27/17 ALLERGIES ALLERGIES DATE TYPE / CODE NAME / CODE REACTION SEVERITY SOURCE 03/07/2018 Drug atorvastatin/B03987 MYALGIAS Unknown [place] Allergy/416 6321(RXNORM) [facility] 816655([facility]) Repository 11/22/2017 DRUG ATORVASTATIN OTHER: SEE C [facility] INGREDI/419 CALCIUM [place] 661751(SNOM Repository ED CT) 11/22/2017 DRUG ATORVASTATIN OTHER: SEE C [facility] INGREDI/419 CALCIUM [place] 021195(SNOM Repository ED CT) Drug NO KNOWN ALLERGIES [facility] Class/44210 [place] 1003(SNOMED Repository CT) ENCOUNTERS ENCOUNTERS ADMIT/DISCHARGE ACCOUNT ADMITTING ENCOUNTER LOCATION SOURCE NUMBER CLASS 08/21/2018/08/21/19 [id number] Ambulatory [address] Repository 08/21/2018/08/21/19 [id number] Ambulatory [address] Repository 08/13/2018 [id number] Ambulatory [facility] Hospital ing:LAB Repository 07/30/2018 [id number] Ambulatory [facility] Hospital ing:CR Repository 07/28/2018/07/28/20 [id number] Ambulatory [address] Hospital ing:CR Repository 07/16/2018/07/16/20 [id number] Ambulatory [address] Hospital ing:LAB Repository 07/02/2018 [id number] Ambulatory [facility] Hospital ing:CR Repository 06/23/2018/06/27/20 [id number] Ambulatory [address] Hospital ing:LAB Repository 06/13/2018 [id number] Ambulatory [facility] Hospital ing:LAB.FUTUR Repository E 06/13/2018/06/13/20 [id number] Ambulatory BMSBuilding:B [place] [facility] Repository 06/04/2018/06/04/20 [id number] Ambulatory [address] Repository 06/04/2018/06/04/20 [id number] Ambulatory [address] Repository 06/04/2018/06/04/20 [id number] Ambulatory [address] Repository 06/04/2018/06/05/20 [id number] Ambulatory [address] Repository 06/02/2018 [id number] Ambulatory BMSBuilding:B [place] [facility] Repository 05/22/2018/05/30/20 [id number] ROSALES URBINA Inpatient [place] 18 [facility] [place] Repository 05/21/2018/05/21/20 [id number] Ambulatory [place] [facility] [place] Repository 05/20/2018/05/23/20 [id number] Ambulatory [place] 18 [facility] [place] Repository 05/20/2018/05/20/20 [id number] Ambulatory [place] [facility] [place] Repository 05/20/2018/05/20/20 [id number] Ambulatory [place] 18 [facility] [place] Repository 05/20/2018/05/20/20 [id number] Ambulatory [place] 18 [facility] [place] Repository 05/20/2018/05/20/20 [id number] Ambulatory [place] [facility] [place] Repository 05/20/2018/05/20/20 [id number] Ambulatory [address] [place] Repository 04/21/2018/05/03/20 [id number] Ambulatory [address] [place] Repository 04/21/2018/04/21/20 [id number] Ambulatory [address] [place] Repository 04/21/2018/04/22/20 [id number] Ambulatory [address] [place] Repository 04/21/2018/04/23/20 [id number] Ambulatory [place] 18 [facility] [place] Repository 04/15/2018/04/15/20 [id number] Ambulatory [address] [place] Repository 04/15/2018/04/15/20 [id number] Ambulatory [address] [place] Repository 04/15/2018/04/15/20 [id number] Ambulatory [address] [place] Repository 04/15/2018/04/29/20 [id number] Ambulatory [address] [place] Repository 04/15/2018/04/15/20 [id number] Ambulatory [address] [place] Repository 04/15/2018/04/15/20 [id number] Ambulatory [address] [place] Repository 03/07/2018/03/07/20 [id number] Emergency [address] ing:ED Repository 02/12/2018 [id number] Ambulatory [facility] ing:[facility] Repository 02/12/2018 [id number] Ambulatory BMSBuilding:W [facility] Repository 01/21/2018/01/22/20 [id number] Ambulatory BMSBuilding:[place] [facility] Repository 01/20/2018 [id number] Ambulatory BMSBuilding:[place] [facility] Repository 11/22/2017/11/26/19 [id number] Ambulatory [address] [place] Repository 09/17/2017/09/17/19 [id number] [place], Ambulatory [address] Repository 09/17/2017/09/17/19 [id number] [place], Ambulatory [address] Repository 09/03/2017/09/12/19 [id number] Ambulatory [address] Repository 09/03/2017/09/03/19 [id number] Ambulatory [address] Repository 09/02/2017/09/02/19 [id number] Ambulatory [address] Repository 09/02/2017/09/19/19 [id number] Ambulatory [address] Repository 08/28/[id number] [facility] [place] Repository 08/28/[id number] [facility] [place] Repository PAYERS PAYERS ENCOUNTER GUARANTOR PAYER SUBSCRIBER SOURCE 08/13/2018 MACIEJ [id number] Primary ÁNGEL [place] TR [facility] [address], y Number: [email or web address] [address]Mkl: [id number] Repository Date:8804-10-01SZ [address] () [id number] [place] [address]BC: 08/13/2018 Secondary NOT GIVENUNK [place] Insurance:SELF PAY [facility] Number: Effective Repository Date:2018-07-28 07/30/2018 MACIEJ [id number] Primary ÁNGEL [place] TR Insurance[facility]: [address], y Number: [id number] [facility]es [email or web address]] [address]Iui: [id number] Repository Date:4011-77-09VZ BOX () [address] [place] [address]AG: 07/30/2018 Secondary NOT GIVENUNK [place] Insurance:SELF PAY [facility] Number: Effective Repository Date:2018-07-29 07/28/2018 MACIEJ [id number] Primary ÁNGEL E [place] TR Insurance:ANTHEMPolic MILLERDOB: Community [address] [place] [address], y Number: [id number] [email or web address]] [id number]: [id number] Repository Date:7984-01-22ES BOX () [address] [place] [phone]: 07/28/2018 Secondary NOT GIVENUNK [place] Insurance:SELF PAY [facility] Number: Effective Repository Date:2018-07-02 07/16/2018 MACIEJ [id number] Primary ÁNGEL E [place] TR Insurance:ANTHEMPolic MILLERDOB: [address], y Number: [id number] Crosses Regional Hospital [[email or web address]] 224[address]Byq: [id number] Repository Date:5705-90-23ZF BOX () [address] [place] [address]WJ: 07/16/2018 Secondary NOT GIVENUNK [place] Insurance:SELF PAY [facility] Number: Effective Repository Date:2018-06-30 07/02/2018 MACIEJ [id number] Primary ÁNGEL E [place] TR Insurance:ANTHEMPolic MILLERDOB: [address], y Number: [id number] [facility]es [facility] [[email or web address]] [address]Jbx: [id number] Repository Date:0899-82-31PV BOX () [id number] [place] [phone]: 07/02/2018 Secondary NOT GIVENUNK [place] Insurance:SELF PAY [facility] Number: Effective Repository Date:2018-06-23 06/23/2018 MACIEJ [id number] Primary ÁNGEL E [place] TR Insurance:ANTHEMPolic MILLERDOB: [address], y Number: [id number] Crosses Regional Hospital [[email or web address]] [address]Phy: [id number] Repository Date:8930-48-51GD BOX () [address] [place] [phone]: 06/23/2018 Secondary NOT GIVENUNK [place] Insurance:SELF PAY [facility] Number: Effective Repository Date:2018-06-16 06/13/2018 MACIEJ [id number] Primary ÁNGEL E [place] TR Insurance:ANTHEMPolic MILLERDOB: Community [address] [place] [address], y Number: [id number] Crosses Regional Hospital [[email or web address]] 370[address]Rlk: [id number] Repository Date:8131-17-11YJ BOX () [address] [place] [phone]: 06/13/2018 Secondary NOT GIVENUNK [place] Insurance:SELF PAY [facility] Number: Effective Repository Date:2018-05-28 06/13/2018 MACIEJ COLBERT50 Primary ÁNGEL E [place] TR Insurance:ANTHEMPolic MILLERDOB: Community [address] [place] [address], y Number: [id number] [facility] [[email or web address]] [address]78[address]Hlg: [id number] Repository Date:7008-44-41IV BOX () [address] [place] [phone]: 06/13/2018 Secondary NOT GIVENUNK [place] Insurance:SELF PAY [facility] Number: Effective Repository Date:2018-06-13 06/02/2018 MACIEJ [id number] Primary ÁNGEL E [place] TR Insurance:ANTHEMPolic MILLERDOB: [address], y Number: [id number] Crosses Regional Hospital [[email or web address]] [address]Tkk: [id number] Repository Date:8142-26-94UF BOX () [address] [place] [phone]: 06/02/2018 Secondary NOT GIVENUNK [place] Insurance:SELF PAY [facility] Number: Effective Repository Date:2018-06-02 03/07/2018 MACIEJ [id number] Primary ÁNGEL E [place] TR Insurance:ANTHEMPolic MILLERDOB: [address], y Number: [id number] Crosses Regional Hospital [[email or web address]] [address]Cjr: [id number] Repository Date:6727-06-38QX BOX () [id number] [place] [phone]: 03/07/2018 Secondary NOT GIVENUNK [place] Insurance:SELF PAY [facility] Number: Effective Repository Date:2018-03-07 02/12/2018 MACIEJ [id number] Primary ÁNGEL E [place] TR Insurance:ANTHEMPolic MILLERDOB: [address], y Number: [id number] [facility]es [facility] [[email or web address]] [address]Mwc: [id number] Repository Date:3983-64-37PN BOX () [address] [place] [phone]: 02/12/2018 Secondary NOT GIVENUNK [place] Insurance:SELF PAY [facility] Number: Effective Repository Date:2018-01-21 02/12/2018 MACIEJ [id number] Primary ÁNGEL E [place] TR Insurance:ANTHEMPolic MILLERDOB: [address], y Number: [id number] Crosses Regional Hospital [[email or web address]] [address]Tuk: [id number] Repository Date:7912-51-96DR BOX () [address] [place] [phone]: 02/12/2018 Secondary NOT GIVENUNK [place] Insurance:SELF PAY [facility] Number: Effective Repository Date:2018-02-12 01/21/2018 MACIEJ [id number] Primary ÁNGEL E [place] [facility] [address] Insurance:ANTHEMPolic MILLERDOB: [address], y Number: [id number] Crosses Regional Hospital [[email or web address]] [address]Pou: [id number] Repository Date:8369-97-85NG BOX () [address] [place] [phone]: 01/21/2018 Secondary NOT GIVENUNK [place] Insurance:SELF PAY [facility] Number: Effective Repository Date:2018-01-17 01/20/2018 Maciej Crowder8850 Primary ÁNGEL Santoyo [facility] [address] Insurance:Julia MONTILLAB: Community [address] [place] [address], Number: [id number] Crosses Regional Hospital [[email or web address]] [address]Vok: [id number] Repository Date:9240-75-28UR [address]OX ( [address], [place] [address]KH: 01/20/2018 Secondary NOT GIVENUNK [place] Insurance:SELF PAY [facility] Number: Effective Repository Date:2018-01-20
== END 2018-08-13 09:00 | disposition home or self-care (01) ==
LOC: LAB 08:19
PROVIDERS: Family Provider Family Medicine; PCP Family Medicine; Referring Provider Internal Medicine Cardiovascular Disease; Visit Provider Internal Medicine Cardiovascular Disease
DX: I48.91 Unspecified atrial fibrillation (principal)
CPT/HCPCS: 36415; 85610

== ENCOUNTER 2018-08-29 09:18 | Outpatient (RCR) | payer BC, SELFPAY ==
[2018-07-02 10:19] VITALS: BMI 24.4
[2018-08-29 10:55] LABS: International Normalized Ratio 1.9; Prothrombin Time (Protime)PT. 21.6 SECONDS (11.7-14.9)
== END 2018-09-25 14:19 | disposition home or self-care (01) ==
LOC: LAB 09:18
PROVIDERS: Family Provider Family Medicine; PCP Family Medicine; Referring Provider Internal Medicine Cardiovascular Disease; Visit Provider Internal Medicine Cardiovascular Disease
DX: I48.91 Unspecified atrial fibrillation (principal); Z79.01 Long term (current) use of anticoagulants
CPT/HCPCS: 36415; 85610

== ENCOUNTER → 2019-01-16 08:16 | Outpatient (CLI) | payer BC, SELFPAY ==
[2019-01-01 14:42] VITALS: BMI 24.5
[2019-01-16 09:59] LABS: AST(SGOT) 15 U/L (15-37); Alanine Aminotransfer ALT/SGPT 22 U/L (16-61); Albumin, Serum 3.5 g/dL (3.2-5.0); Alkaline Phosphatase 61 U/L (45-117); Bilirubin, Direct 0.11 mg/dL (0.00-0.30); Cholesterol 175 mg/dL (200); Globulin 3.9 g/dL (2.2-4.2); High Density Lipoprotein 47 mg/dL; Protein, Total 7.4 g/dL (6.4-8.2); Triglycerides 85 mg/dL; Very Low Density Lipoprotein 17 mg/dL (5-40)
== END ==
PROVIDERS: Family Provider Family Medicine; PCP Family Medicine; Referring Provider Internal Medicine Cardiovascular Disease; Visit Provider Internal Medicine Cardiovascular Disease
DX: E78.5 Hyperlipidemia, unspecified (principal); I25.10 Atherosclerotic heart disease of native coronary artery without angina pectoris
CPT/HCPCS: 36415; 80061; 80076

== ENCOUNTER → 2019-03-13 08:21 | Outpatient (CLI) | payer BC, SELFPAY ==
[2019-01-01 14:42] VITALS: BMI 24.5
[2019-03-13 09:16] LABS: AST(SGOT) 16 U/L (15-37); Alanine Aminotransfer ALT/SGPT 24 U/L (16-61); Albumin, Serum 3.8 g/dL (3.2-5.0); Alkaline Phosphatase 60 U/L (45-117); Bilirubin, Direct 0.11 mg/dL (0.00-0.30); Cholesterol 173 mg/dL (200); Globulin 4.1 g/dL (2.2-4.2); High Density Lipoprotein 46 mg/dL; Protein, Total 7.9 g/dL (6.4-8.2); Triglycerides 75 mg/dL; Very Low Density Lipoprotein 15 mg/dL (5-40)
== END ==
PROVIDERS: Family Provider Family Medicine; PCP Family Medicine; Referring Provider Internal Medicine Cardiovascular Disease; Visit Provider Internal Medicine Cardiovascular Disease
DX: E78.5 Hyperlipidemia, unspecified (principal); I25.10 Atherosclerotic heart disease of native coronary artery without angina pectoris
CPT/HCPCS: 36415; 80061; 80076

== ENCOUNTER → 2019-07-03 08:23 | Outpatient (CLI) | payer BC, SELFPAY ==
[2019-01-01 14:42] VITALS: BMI 24.5
--- NOTE | 2019-07-03 08:25 | ECHOCS_ITS ---
Reason For Study: AVR Procedure This was a 2D Doppler, Color Flow transthoracic echocardiogram. The study was technically difficult. Contrast injection was performed. Exam performed in department. Left Ventricle Moderate concentric left ventricular hypertrophy. The estimated ejection fraction is 65 %. Stage 1 diastolic dysfunction. No regional wall motion abnormalities noted. Right Ventricle Mildly dilated right ventricle. Normal systolic function. Atria The left atrium is moderately enlarged. The right atrium is moderately enlarged. Prominent eustachian valve. Normal atrial septum. Mitral Valve Mild diffuse mitral valve thickening. Mild mitral annular calcification extending into the posterior leaflet. Trivial mitral valve insufficiency. Tricuspid Valve Normal tricuspid valve. Mild (1+) tricuspid valve insufficiency. Right ventricular systolic pressure estimated to be 30 mmHg. Aortic Valve Peak aortic valve gradient 8 mmHg. Mean aortic valve gradient 4 mmHg. Stable appearing bioprosthetic aortic valve apparatus. Pulmonic Valve Normal pulmonic valve. Trivial pulmonic valve insufficiency. Great Vessels Normal aortic root. Normal arch. Normal inferior vena cava. Inferior vena cava collapse with sniff. Pericardium/Pleural No pericardial effusion. Medication 22 gauge I.V. with prn adaptor inserted into right arm. Diluted definity 3ml given slow IV push to enhance endocardial definition. MMode/2D Measurements & Calculations LVIDd: 3.9 cm IVSd: 1.5 cm LVOT diam: 2.0 cm LVIDs: 2.3 cm LVPWd: 1.5 cm FS: 40.1 % LVOT area: 3.3 cm2 LA dimension: 5.2 cm LAV(MOD-bp): 71.2 ml LA A4 area: 23.4 cm2 LAV(MOD-bp) Indexed: 39.2 ml/m2 LAV(MOD-sp2): 62.7 ml LAV(MOD-sp4): 77.7 ml RA A4 area: 22.3 cm2 Time Measurements MV dec time: 0.21 sec Doppler Measurements & Calculations MV E max chin: 83.0 cm/sec Lat Peak E' Chin: 6.2 cm/sec Med Peak E' Chin: 4.7 cm/sec MV A max chin: 101.4 cm/sec E/E' lat: 13.4 E/E' med: 17.6 MV E/A: 0.82 MV V2 max: 103.0 cm/sec MV P1/2t max chin: 98.2 cm/sec Ao V2 max: 142.4 cm/sec MV max P.2 mmHg MV P1/2t: 84.0 msec Ao max P.1 mmHg MV V2 mean: 50.1 cm/sec MV dec slope: 342.4 cm/sec2 Ao V2 mean: 90.2 cm/sec MV mean P.2 mmHg Ao mean P.8 mmHg MV V2 VTI: 41.8 cm MVA(P1/2t): 2.6 cm2 Ao V2 VTI: 33.8 cm MVA(VTI): 1.7 cm2 LISY(I,D): 2.1 cm2 LISY(V,D): 1.7 cm2 LV V1 max: 73.0 cm/sec SV(LVOT): 71.5 ml PA V2 max: 144.5 cm/sec LV V1 max P.1 mmHg LV V1 mean P.1 mmHg LV V1 mean: 49.1 cm/sec LV V1 VTI: 22.0 cm TR max chin: 249.8 cm/sec TR max P.0 mmHg Interpretation Summary Moderate concentric left ventricular hypertrophy. The estimated ejection fraction is 65 %. Stage 1 diastolic dysfunction. Mildly dilated right ventricle. The left atrium is moderately enlarged. The right atrium is moderately enlarged. Trivial mitral valve insufficiency. Mild (1+) tricuspid valve insufficiency. Right ventricular systolic pressure estimated to be 30 mmHg. Stable appearing and normal functioning bioprosthetic aortic valve apparatus. Compared to MARY report dated 02/12/2018, the [place] aortic valve has been replaced with a bioprosthetic aortic valve. Ordering Physician: Tanvir Lyles Referring Physician: aTnvir Lyles Performed By: Cayetano Mitchell RCS
== END ==
PROVIDERS: Family Provider Family Medicine; PCP Family Medicine; Referring Provider Internal Medicine Cardiovascular Disease; Visit Provider Internal Medicine Cardiovascular Disease
DX: I25.10 Atherosclerotic heart disease of native coronary artery without angina pectoris (principal); Z95.1 Presence of aortocoronary bypass graft; Z95.2 Presence of prosthetic heart valve; Z79.01 Long term (current) use of anticoagulants
CPT/HCPCS: 93306; Q9957; A4216; C8929

== ENCOUNTER → 2019-07-16 09:44 | Outpatient (CLI) | payer BC, SELFPAY ==
[2019-07-16 09:20] VITALS: BMI 24.5
--- NOTE | 2019-07-16 09:50 | RAD_ITS ---
STUDY: X-RAY CHEST REASON FOR EXAM: Male, 79 years old. Cough, evaluate for pneumonia. TECHNIQUE: PA and lateral views of the chest. COMPARISON: 07 March 2018 FINDINGS: Sternotomy wires are midline. There is hyperinflation of the lungs consistent with chronic obstructive lung disease (COPD). There is noted air space disease overlying the left upper lobe basilar posterior segments. There is no demonstrated pleural abnormality. Normal size heart. Granulomatous changes of the hilar regions are present. Normal visualized pulmonary arteries. There is atherosclerotic calcification of the aortic arch with tortuosity. Normal visualized thoracic spine. Normal visualized ribs, clavicles, and shoulders. There is no demonstrated abnormality of the visualized soft tissue structures of the upper abdomen. RAD/Chest PA and Lateral IMPRESSION: COPD changes with compounding left upper lobe basilar posterior segment pneumonia in the appropriate clinical setting. Recommend repeat evaluation after appropriate treatment. Electronically Signed: Nader Rodney DO at 21:22 EST , Service support ,
== END ==
PROVIDERS: Family Provider Family Medicine; PCP Family Medicine; Referring Provider Internal Medicine Cardiovascular Disease; Visit Provider Internal Medicine Cardiovascular Disease
DX: J44.0 Chronic obstructive pulmonary disease with (acute) lower respiratory infection (principal); J18.0 Bronchopneumonia, unspecified organism; J98.11 Atelectasis; I97.89 Other postprocedural complications and disorders of the circulatory system, not elsewhere classified; I48.91 Unspecified atrial fibrillation; I10 Essential (primary) hypertension; Z95.2 Presence of prosthetic heart valve
CPT/HCPCS: 71046

== ENCOUNTER 2019-07-16 11:06 | Inpatient (IN) | payer BC, SELFPAY ==
[2019-07-16] VITALS (29 sets, daily range): BP systolic 61–131; BP diastolic 48–86; PULSE 74–157; RESP 12–35; TEMP 36.4–37.1; O2SAT 86–98; BMI 24.5; BMI 24.9; BMI 25.4
--- NOTE | 2019-07-16 11:39 | EKG12_ITS ---
Test Reason : AFIB Blood Pressure : / mmHG Vent. Rate : 136 BPM Atrial Rate : 138 BPM P-R Int : 000 ms QRS Dur : 088 ms QT Int : 272 ms P-R-T Axes : 000 074 -36 degrees QTc Int : 409 ms Atrial fibrillation with rapid ventricular response ST & T wave abnormality, consider inferior ischemia Abnormal ECG Confirmed by SHAHEEN VIDAL, WES ([id number]), editorial manager DHARMESH KRAMER ([id number]) on 07/20/2019 11:31:27 AM Referred By: Dinh Galan Confirmed By:WES JAMISON MD
[2019-07-16] MEDS: Ipratropium/Albuterol Sulfate 3 ML AMPUL.NEB INHALATION ×3 (11:52→23:53)
[2019-07-16 11:53] LABS: International Normalized Ratio 1.8; Prothrombin Time (Protime)PT. 21.2 SECONDS (11.7-14.9)
[2019-07-16 11:54] LABS: Partial Thromboplast Time 37.2 Seconds (24.1-36.2)
[2019-07-16 12:00] LABS: Absolute Lymphocyte Count 0.74 X10^3/uL (0.83-4.51); Basophil# 0.06 X10^3/uL; Eosinophil# 0.23 X10^3/uL; Hematocrit 39.4 % (40-54); Hemoglobin 13.2 g/dL (13.0-16.5); Lymphocyte # 0.74 X10^3/ul (4.0); Mean Corp Hgb Conc 33.5 g/dL (32-36); Mean Corpuscular Hgb 31.6 pg (27.0-32.0); Mean Corpuscular Volume 94.3 fL (80-94); Mean Platelet Vol. 9.4 fl (6.2-12.0); NRBC Flagged by Analyzer 0 % (0-5); Neutrophil # 4.49 X10^3/uL (2.7-7.7); POSITIVE MORPHOLOGY YES; Platelet Count 185 K/mm3 (150-450); RBC Distribution Width SD 45.1 fl (35.1-43.9); Red Blood Count 4.18 M/mm3 (4.6-6.2); White Blood Count 5.7 K/mm3 (4.4-11.0)
[2019-07-16 12:03] LABS: Differential Indicated SCAN CRITERIA MET
[2019-07-16 12:22] LABS: Lymphocyte 13 % (19-41); Metamyelocyte 18 % (0-1); Monocyte 6 % (0-10); Neutrophil-Band 11 % (0-5); Neutrophil-Segmented 52 % (47-70); Total Cells Counted 100 (MANUAL DIFF)
[2019-07-16 12:23] LABS: Anion Gap 9 (5-15); BUN 27 mg/dL (7-18); BUN/Creat Ratio 14.8 RATIO (10-20); Calcium,Total 8.8 mg/dL (8.5-10.1); Chloride 101 mmol/L (98-107); Creatinine, Serum 1.83 mg/dL (0.70-1.30); Dohle Bodies RARE; EST Glomerular Filtration Rate 38 mL/min (>60); Est Glom Filt Rate - Afr Amer 46 mL/min (>60); Glucose 143 mg/dL (74-106); Platelet Estimate ADEQUATE (ADEQ); Potassium 4.2 mmol/L (3.5-5.1); Red Cell Morphology NORM C+C NORMAL (NORM C&C); Scan Smear per Review Criteria MANUAL DIFF; Sodium Level 134 mmol/L (136-145); Toxic Granulation RARE
[2019-07-16 12:24] LABS: Absolute Neutrophil Count 3.6 X10^3/uL (2.0-7.7)
[2019-07-16 12:30] LABS: Lactic Acid 3.2 mmol/L (0.4-1.9)
--- NOTE | 2019-07-16 12:46 | ED.VISSUMM ---
- ER Visit Summary Date of Service: 07/16/19 Chief Complaint: Shortness of breath History of Present Illness: The patient is a 79 M who presents with shortness of breath that is been getting worse over the past 3 days. Patient states his breathing is better with oxygen. Patient states nothing makes his breathing worse. Patient states she is coughing up some clear sputum. Patient admits to subjective chills but denies any fevers. Patient denies any chest pain. Patient denies any upper respiratory symptoms. Patient states he has been feeling weak. Patient states he did have an episode of nausea and vomiting a couple days ago but currently denies any nausea. Patient saw Dr. Lyles today who did an x-ray and told the patient to go to the urgent care. Patient was seen in the urgent care and was referred here due to his hypoxia. Physical Examination: Vital signs are stable. Patient's pulse oximeter is 93% on 3 L/min nasal cannula oxygen. Pulse ox and was 88% on room air. Oral mucosa is pink and moist. Neck is supple. Trachea is midline. There is no JVD. Heart was regular rate and rhythm. Lungs showed rhonchi on the left. There is good respiratory effort noted. Abdomen is soft. Bowel sounds are normal. There is no tenderness. Cranial nerves II through XII are intact. There are no focal motor or sensory deficits noted. Test Results: Chest x-ray was reviewed from earlier today which showed a left upper lobe infiltrate. CBC showed a normal white blood cell count. There were 52 segs, 11 bands, and 13 lymphocytes. Patient metabolic profile showed a creatinine of 1.83 and a BUN of 27. Troponin was 0.034. INR is 1.8 and PTT is 37.2. Blood cultures were drawn. Lactate was 3.2. EKG showed a normal sinus rhythm with occasional PACs with a rate of 78. There are no acute ST or T wave changes noted. Emergency Department Course and Treatment: Patient was given IV fluids here. Patient was given a DuoNeb aerosol. Patient was placed on oxygen at 3 L nasal cannula. Patient was started on Levaquin. Case was discussed with the hospitalist. He will admit the patient to the PCU stepdown. Patient and family understood and were agreeable with the plan. All questions were answered. Disposition: Admit to hospital Impression: 1. Pneumonia 2. Severe sepsis This note was generated with EVIIVOation software. It may contain incorrect words, spelling, and punctuation that were not noted in review of the chart prior to signing ED Disposition - Plan for ED Patient: Disposition: Acute Care Hospital [facility] Diagnosis: Severe sepsis, Community acquired pneumonia Referrals: Vidal Adams MD [Primary Care Provider] -
[2019-07-16] MEDS: 0.9% Normal Saline 1,000 ML 1000 ML IV (12:53)
[2019-07-16] MEDS: levoFLOXacin IV 750 MG/150 ML BAG 150 MG IV (13:41)
--- NOTE | 2019-07-16 13:46 | PCM.HP.STD ---
Problem List (1) Severe sepsis Status: Acute (2) Community acquired pneumonia Status: Acute (3) Tachy-raissa syndrome Status: Acute Comment: Noted on discharge summary from [facility] after CABG and AVR (4) Atelectasis Status: Acute (5) Postoperative atrial fibrillation Status: Acute (6) History of aortic stenosis Status: Chronic Comment: ROSA to LAD, reverse SVG to OM and PDA of RCA along with AVR using 25 Andrew Awan valve, per Dr. Darrion Meyer, [facility] (7) H/O aortic valve replacement Status: Chronic Comment: ROSA to LAD, reverse SVG to OM and PDA of RCA along with AVR using 25 Andrew Awan valve, per Dr. Darrion Meyer, [facility] (8) S/P CABG x 3 Status: Chronic Comment: ROSA to LAD, reverse SVG to OM and PDA of RCA along with AVR using 25 Andrew Awan valve, per Dr. Darrion Meyer, [facility] (9) meterman (current) use of anticoagulants Status: Acute (10) Atrial fibrillation Status: Acute (11) Hypertension Status: Chronic (12) Dyslipidemia Status: Chronic (13) Atherosclerosis of coronary artery of [place] heart without angina pectoris Status: Chronic History of Present Illness Date of Admission: 07/16/19 Chief Complaint: Shortness of breath for 2 to 3 days The patient is a 79 year old M with history of coronary artery disease status post CABG three-vessel, aortic stenosis status post AVR in April 2018, paroxysmal A. fib was sent to urgent care from Dr. Lyles office after he was found short of breath and hypoxic. From urgent care patient was sent to ER. As per the patient, he felt chills about 2 days ago along with shortness of breath/dyspnea on exertion. He also has cough with clear sputum for 2 days along with URI symptoms of sinus congestion and postnasal drip. In ED, patient was found hypoxic, 88% on room air, tachypneic respiratory 24, 93% on 3 L oxygen. During conversation and exam, he became more hypoxic and tachypneic, respiratory 35/min and 92% oxygen requirement 5 L. Chest x-ray showed large area of consolidation in the left upper lobe and lingular lobe same superior segment of left lower lobe. Recent echo on 07/03/2019 reported as EF 65% with stage I diastolic dysfunction. Moderate concentric LVH. Mildly dilated RV with normal systolic function. LA moderately enlarged. Right atrium moderately enlarged. Mild diffuse mitral valve thickening with trivial MR. Mild TR, RVSP 30 mmHg. Stable appearing bioprosthetic aortic valve apparatus. First EKG in the ER normal sinus rhythm at [address]-T changes While in ER, patient went into A. fib with RVR, on monitor heart rate 155/min. EKG was done shows A. fib with RVR at 60/min Past Medical History Past Medical History (Chronic Problems): Chronic Problems (Last Reviewed 07/14/19 @ 18:38 by Joan Charles) History of aortic stenosis (Chronic) ROSA to LAD, reverse SVG to OM and PDA of RCA along with AVR using 25 Andrew Awan valve, per Dr. Darrion Meyer, [facility] H/O aortic valve replacement (Chronic 05/22/18) ROSA to LAD, reverse SVG to OM and PDA of RCA along with AVR using 25 Andrew Awan valve, per Dr. Darrion Meyer, [facility] S/P CABG x 3 (Chronic 05/22/18) ROSA to LAD, reverse SVG to OM and PDA of RCA along with AVR using 25 Andrew Awan valve, per Dr. Darrion Meyer, [facility] Hypertension (Chronic) Dyslipidemia (Chronic) Atherosclerosis of coronary artery of [place] heart without angina pectoris (Chronic) Medical History: Medical History (Last Reviewed 07/14/19 @ 18:38 by Joan Charles) Tachy-raissa syndrome (Acute) Onset Date: 05/24/18 I49.5 Noted on discharge summary from [facility] after CABG and AVR Atelectasis (Acute) J98.11 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) I97.89, I48.91 History of aortic stenosis (Chronic) Z86.79 ROSA to LAD, reverse SVG to OM and PDA of RCA along with AVR using 25 Andrew Awan valve, per Dr. Darrion Meyer, [facility] Hypertension (Chronic) I10 Dyslipidemia (Chronic) E78.5 Atherosclerosis of coronary artery of [place] heart without angina pectoris (Chronic) I25.10 Asthma J45.909 Diverticulitis K57.92 Eczema L30.9 Inguinal hernia K40.90 Bilateral pneumothorax Onset Date: 09/01/13 J93.9 Non-rheumatic aortic stenosis (Resolved) I35.0 Allergies atorvastatin Adverse Reaction (Verified 07/16/19 11:07) myalgias Home Medications: Ambulatory Orders Medication Instructions Recorded acetaminophen 325 mg tablet 650 mg PO Q6H PRN tab 06/12/18 albuterol sulfate 90 mcg/actuation 2 puff INHALATION Q6H PRN 06/12/18 aerosol inhaler fluticasone 250 mcg-salmeterol 50 1 inh INHALATION BID 06/12/18 mcg/dose blistr powdr for inhalation multivitamin 1 tab PO DAILY 06/12/18 aspirin 81 mg tablet,delayed 81 mg PO QDAY #90 tab 09/15/18 release potassium chloride 10 mEq 10 meq PO DAILY #90 tab 12/29/18 tablet,extended release metoprolol tartrate 50 mg tablet 50 mg PO BID 01/01/19 furosemide 20 mg tablet 20 mg PO BID #180 tab 03/13/19 rosuvastatin 10 mg tablet 10 mg PO DAILY #90 tab 03/13/19 ezetimibe 10 mg tablet 10 mg PO DAILY #1 tab 06/10/19 Surgical History: Surgical History (Last Reviewed 07/14/19 @ 18:38 by Joan Charles) H/O aortic valve replacement (Chronic) Onset Date: 05/22/18 Z95.2 ROSA to LAD, reverse SVG to OM and PDA of RCA along with AVR using 25 Andrew Awan valve, per Dr. Darrion Meyer, [facility] S/P CABG x 3 (Chronic) Onset Date: 05/22/18 Z95.1 ROSA to LAD, reverse SVG to OM and PDA of RCA along with AVR using 25 Andrew Awan valve, per Dr. Darrion Meyer, [facility] History of open reduction and internal fixation (ORIF) procedure Z98.890 RLE History of inguinal hernia repair Z98.890, Z87.19 History of left heart catheterization Onset Date: 09/18/17 Z98.890 LMT-30-40% ostial stenosis Mid LAD 60-70% stenosis Mid Cx 50% Stenosis RCA 100% TOBACCO F[employer] after mid portion w/ left-right collaterals Smoking Status: Former smoker - About 5 to 10 years states less than a pack per day Alcohol: None Drugs: None - *Family History Paternal History Items: Heart Disease Review of Systems Constitutional: Reports: Chills, Fever. Denies: Weight Change HEENT: Reports: Nasal Congestion, Post Nasal Drip, Sinus Congestion, Sore Throat. Denies: Head Aches, Sinus Drainage Cardiovascular: Denies: Chest Pain, Palpitations Respiratory: Reports: Cough, Shortness of breath at rest, Shortness of breath upon exertion, Sputum production Gastrointestinal: Denies: Abdominal Pain, Nausea, Vomiting Genitourinary: Denies: Dysuria, Frequency Musculoskeletal: Reports: Joint Pain. Denies: Joint Tenderness Skin: Denies: Rash, Wounds Neurological: Denies: Difficulty swallowing, Focal weakness, Numbness, Tingling Psychiatric: Denies: Anxiety, Depression, Homicidal Ideations, Suicidal Ideations Hematologic/ Lymphatic: Denies: Easy Bruising, Easy Bleeding VTE Information - Inpt Only VTE Present on Admission: No VTE Mechan Device Prophylaxis: None VTE Pharm Prophylaxis ordered?: Yes Patient Problems: Active and Suspected Problems (Last Reviewed 07/14/19 @ 18:38 by Joan Charles) Severe sepsis (Acute) Community acquired pneumonia (Acute) - Physical Exam Vitals/I&O's: Vital Signs Temp Pulse Resp BP Pulse Ox 98.6 F 82 24 H 129/61 H 92 07/16/19 13:00 07/16/19 13:00 07/16/19 13:00 07/16/19 13:00 07/16/19 13:00 Oxygen Flow Rate (L/min) 3 Oxygen Delivery Method Nasal Cannula Weight: 159 lb 4.8 oz Body Mass Index (BMI) 24.9 General: Alert, Oriented x3, Cooperative HEENT: Atraumatic, PERRLA, EOMI, Normocephalic Oral: No Gingival or Mucosal Lesions/ Ulcerations, Dry Mucosa Neck: Supple, No JVD, Negative Carotid Bruits Lungs: Diminished - Air entry diminished on the left upper lobe, anteriorly and laterally with egophony sound., Rhonchi - Coarse rhonchi and rales present on the left axillary region anteriorly., Short of Breath, Using Accessory Muscles Cardiovascular: Normal S1, Normal S2, No murmurs, Irregular Rate, Tachycardic Abdomen: Bowel Sounds Present, Soft, Non Tender, Non-Distended Extremities: No edema, Capillary Refill Less than 3 Seconds Skin: No rashes, No breakdown, - - Scar wyatt over left leg when he caved in bed while working. Musculoskeletal: No Tenderness to Palpation of Joints or Extremities, Arthritic Changes Neurological: Cranial nerves II-XII grossly intact, Neuro grossly intact Psych/Mental Status: Normal Affect, Appropriate Laboratory Results 07/16/19 11:14: PT 21.2 H, INR 1.8, APTT 37.2 H 07/16/19 11:15: WBC 5.7, RBC 4.18 L, Hgb 13.2, Hct 39.4 L, MCV 94.3 H, MCH 31.6, MCHC 33.5, RDW Std Deviation 45.1 H, RDW Coeff of Jeanne 13.0, Plt Count 185, MPV 9.4, Immature Gran % (Auto) ORNAMENT SETTER, Neut % (Auto) ORNAMENT SETTER, Lymph % (Auto) ORNAMENT SETTER, Real % (Auto) ORNAMENT SETTER, Eos % (Auto) ORNAMENT SETTER, Baso % (Auto) ORNAMENT SETTER, Absolute Neuts (auto) 3.6, Absolute Lymphs (auto) 0.74 L, Total Counted 100, Neutrophils % (Manual) 52, Band Neutrophils % 11 H, Lymphocytes % (Manual) 13 L, Monocytes % (Manual) 6, Metamyelocytes % 18 H, Nucleated RBC % 0, Diff Path Review May foll, Toxic Granulation RARE, Dohle Bodies RARE, Platelet Estimate ADEQUATE, RBC Morphology NORM C+C 07/16/19 11:15: Sodium 134 L, Potassium 4.2, Chloride 101, Carbon Dioxide 24.0, Anion Gap 9, BUN 27 H, Creatinine 1.83 H, Estim Creat Clear Calc 31.10, Est GFR (MDRD) Af Amer 46 L, Est GFR (MDRD) Non-Af 38 L, BUN/Creatinine Ratio 14.8, Glucose 143 H, Calcium 8.8, Troponin I 0.034 07/16/19 11:15: Lactic Acid 3.2 H* Current Medications Sodium Chloride () 1,000 mls @ 999 mls/hr IV .Q1H1M [facility]; Protocol Stop: 07/16/19 15:40 Assessment/Plan All Active Problems (Last Reviewed 07/14/19 @ 18:38 by Joan Charles) Severe sepsis (Acute) Community acquired pneumonia (Acute) 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) Atelectasis (Acute) 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) meterman (current) use of anticoagulants (Acute) Atrial fibrillation (Acute) Non-rheumatic aortic stenosis (Resolved) The patient is a 79 year old M with history of coronary artery disease status post CABG three-vessel, aortic stenosis status post AVR in April 2018, paroxysmal A. fib was sent to urgent care from Dr. Lyles office after he was found short of breath and hypoxic. From urgent care patient was sent to ER. In ED, patient was found hypoxic, 88% on room air, tachypneic respiratory 24, 93% on 3 L oxygen. During conversation and exam, he became more hypoxic and tachypneic, respiratory 35/min and 92% oxygen requirement 5 L. Chest x-ray showed large area of consolidation in the left upper lobe and lingular lobe same superior segment of left lower lobe. While in ER, patient went into A. fib with RVR, on monitor heart rate 155/min. EKG was done shows A. fib with RVR at 60/min 1. Severe sepsis (tachycardia, tachypnea, leukocytosis, bandemia and lactic acidosis, 3.2) secondary to left upper lobe/lingular and superior segment of left lower lobe, multilobar community-acquired pneumonia: Patient is being admitted in ICU. Irrigation Specialist consulted and discussed. IV fluid normal saline 30 mils per KG in first 4 hours and then maintenance fluid. Currently patient is normotensive. Pneumonia work-up including blood cultures x2, sputum culture, urinary antigens, MRSA nasal screen and respiratory panel. UA with urine culture also ordered. Started on Levaquin 750 mg IV daily. Patient did not any recent antibiotic. 2. A. fib with RVR with history of tachybradycardia syndrome: Patient has history of paroxysmal A. fib and had postoperative A. fib after CABG. On metoprolol 50 mg twice daily. Consult cardiology. Eliquis 5 mg twice daily. Metoprolol 5 mg IV one dose ordered to see the response of tachycardia. Patient might drop blood pressure on Cardizem. Patient is not on anticoagulant as per home medication 3. Coronary artery disease status post CABG x3, aortic stenosis status post aortic valve replacement in April 2018: Recent echo on 07/03/2019 reported as EF 65% with stage I diastolic dysfunction. Moderate concentric LVH. Mildly dilated RV with normal systolic function. LA moderately enlarged. Right atrium moderately enlarged. Mild diffuse mitral valve thickening with trivial MR. Mild TR, RVSP 30 mmHg. Stable appearing bioprosthetic aortic valve apparatus. First EKG in the ER normal sinus rhythm at [address]-T changes Home cardiac medications aspirin, metoprolol rosuvastatin continued. Lasix held. 4. Other comorbidities include hypertension, dyslipidemia: Home medication reconciliation done. Code Visit Inpatient E&M: 54893 Init Hosp L3
--- NOTE | 2019-07-16 14:14 | EKG12_ITS ---
Test Reason : SOB Blood Pressure : / mmHG Vent. Rate : 078 BPM Atrial Rate : 078 BPM P-R Int : 182 ms QRS Dur : 092 ms QT Int : 356 ms P-R-T Axes : 059 059 053 degrees QTc Int : 405 ms Sinus rhythm with Premature supraventricular complexes Otherwise normal ECG Confirmed by SHAHEEN VIDAL, WES ([id number]), editorial assistant DHARMESH KRAMER ([id number]) on 07/20/2019 11:30:45 AM Referred By: Dinh Galan Confirmed By:WES JAMISON MD
--- NOTE | 2019-07-16 14:20 | CON.PCM_ITS ---
Reason for Consult Date of Consultation: 07/16/19 Reason for Consultation: Acute Hypoxemic Respiratory Failure History of Present Illness: The patient is a 79-year-old male, with a history as outlined below, who presented to the emergency department with shortness of breath and hypoxemia. The patient was evaluated in the cardiology clinic early this morning by Dr. Lyles, at which time, he was apparently sent to the urgent care for evaluation over concerns for low oxygen saturations. Patient has a known history of coronary artery disease status post bypass, paroxysmal atrial fibrillation and is status post aortic valve replacement. The patient does have a limited smoking history, having quit completely 4 to 5 years ago. 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 He does not utilize supplemental oxygen at his baseline. On presentation to the emergency department, the patient was noted to be afebrile, but was tachypneic and saturating 88% on room air. Laboratory evaluation revealed evidence of bandemia. Chemistry profile was notable for a sodium of 134, along with evidence of acute kidney injury with a creatinine of 1.83. Lactate was elevated 3.2. Initial troponin was negative. Chest x-ray revealed multifocal airspace disease throughout the left hemithorax. During my evaluation of the patient, he did go into atrial fibrillation with a rapid ventricular rate. The patient received supplemental IV fluids and was started on antimicrobials. He was subsequently transferred to the medical intensive care unit for further management. Past Medical History Past Medical History (Chronic Problems): Chronic Problems (Last Reviewed 07/14/19 @ 18:38 by Joan Charles) History of aortic stenosis (Chronic) ROSA to LAD, reverse SVG to OM and PDA of RCA along with AVR using 25 Andrew Awan valve, per Dr. Darrion Meyer, [facility] H/O aortic valve replacement (Chronic 05/22/18) ROSA to LAD, reverse SVG to OM and PDA of RCA along with AVR using 25 Andrew Awan valve, per Dr. Darrion Meyer, [facility] S/P CABG x 3 (Chronic 05/22/18) ROSA to LAD, reverse SVG to OM and PDA of RCA along with AVR using 25 Andrew Awan valve, per Dr. Darrion Meyer, [facility] Hypertension (Chronic) Dyslipidemia (Chronic) Atherosclerosis of coronary artery of [place] heart without angina pectoris (Chronic) Medical History: Medical History (Last Reviewed 07/14/19 @ 18:38 by Joan Charles) Tachy-raissa syndrome (Acute) Onset Date: 05/24/18 I49.5 Noted on discharge summary from [facility] after CABG and AVR Atelectasis (Acute) J98.11 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) I97.89, I48.91 History of aortic stenosis (Chronic) Z86.79 ROSA to LAD, reverse SVG to OM and PDA of RCA along with AVR using 25 Andrew Awan valve, per Dr. Darrion Meyer, [facility] Hypertension (Chronic) I10 Dyslipidemia (Chronic) E78.5 Atherosclerosis of coronary artery of [place] heart without angina pectoris (Chronic) I25.10 Asthma J45.909 Diverticulitis K57.92 Eczema L30.9 Inguinal hernia K40.90 Bilateral pneumothorax Onset Date: 09/01/13 J93.9 Non-rheumatic aortic stenosis (Resolved) I35.0 Allergies atorvastatin Adverse Reaction (Verified 07/16/19 11:07) myalgias Home Medications: Ambulatory Orders Medication Instructions Recorded albuterol sulfate 90 mcg/actuation 2 puff INHALATION Q6H PRN 06/12/18 aerosol inhaler fluticasone 250 mcg-salmeterol 50 1 inh INHALATION BID 06/12/18 mcg/dose blistr powdr for inhalation metoprolol tartrate 50 mg tablet 50 mg PO BID 01/01/19 Aspirin [Aspir-Low] 81 mg PO DAILY@0800 07/16/19 Furosemide [Lasix] 20 mg PO BID 07/16/19 Multivitamin with Minerals 1 tab PO DAILY 07/16/19 [Multiple Vitamin] Potassium Chloride 10 meq PO DAILY 07/16/19 Rosuvastatin Calcium 10 mg PO DAILY 07/16/19 Surgical History: Surgical History (Last Reviewed 07/14/19 @ 18:38 by Joan Charles) H/O aortic valve replacement (Chronic) Onset Date: 05/22/18 Z95.2 ROSA to LAD, reverse SVG to OM and PDA of RCA along with AVR using 25 Andrew Awan valve, per Dr. Darrion Meyer, [facility] S/P CABG x 3 (Chronic) Onset Date: 05/22/18 Z95.1 ROSA to LAD, reverse SVG to OM and PDA of RCA along with AVR using 25 Andrew Awan valve, per Dr. Darrion Meyer, [facility] History of open reduction and internal fixation (ORIF) procedure Z98.890 RLE History of inguinal hernia repair Z98.890, Z87.19 History of left heart catheterization Onset Date: 09/18/17 Z98.890 LMT-30-40% ostial stenosis Mid LAD 60-70% stenosis Mid Cx 50% Stenosis RCA 100% [address] LIAISON after mid portion w/ left-right collaterals Smoking Status: Former smoker Tobacco Use: Cigarettes, Cigars - *Family History Paternal History Items: Heart Disease Review of Systems Constitutional: Reports: Fatigue Eyes: Denies: Blurred vision, Double vision HEENT: Denies: Head Aches, Sinus Congestion, Sinus Drainage Cardiovascular: Denies: Chest Pain, Palpitations Respiratory: Reports: Cough, Shortness of Breath Gastrointestinal: Reports: Nausea Genitourinary: Denies: Dysuria Musculoskeletal: Denies: Joint Pain, Joint Tenderness Skin: Denies: Rash, Wounds Neurological: Denies: Numbness, Tingling, Focal weakness Psychiatric: Denies: Anxiety, Depression, Homicidal Ideations, Suicidal Ideations Hematologic/ Lymphatic: Denies: Easy Bruising, Easy Bleeding Patient Problems: Active and Suspected Problems (Last Reviewed 07/14/19 @ 18:38 by Joan Charles) Severe sepsis (Acute) Community acquired pneumonia (Acute) Objective: The patient's most recent lab work, culture data and imaging studies have all been personally reviewed. - Physical Exam Vitals/I&O's: Vital Signs Temp Pulse Resp BP Pulse Ox 98.6 F 82 24 H 129/61 H 92 07/16/19 13:00 07/16/19 13:00 07/16/19 13:00 07/16/19 13:00 07/16/19 13:00 Oxygen Flow Rate (L/min) 3 Oxygen Delivery Method Nasal Cannula Weight: 159 lb 4.8 oz Body Mass Index (BMI) 24.9 General: Alert, Cooperative, - - Ill in appearance. is present at the bedside. HEENT: Atraumatic, PERRLA, Normocephalic Oral: Dry Mucosa Neck: Supple, No Nodes, Trachea Midline Lungs: No rhonchi, No wheeze, No rales, Diminished, Tachypneic Cardiovascular: Normal S1, Normal S2, Irregular Rate, Murmur, Tachycardic Abdomen: Bowel Sounds Present, Soft, Non Tender Extremities: No clubbing, No cyanosis, No edema Skin: No breakdown Musculoskeletal: No Tenderness to Palpation of Joints or Extremities Lymphatic: No Cervical, Supraclavicular, or Inguinal Adenopathy Neurological: Cranial nerves II-XII grossly intact, Neuro grossly intact Psych/Mental Status: Normal Affect, Appropriate Labs (Last 48 Hours) 07/16/19 07/16/19 07/16/19 11:14 11:15 11:15 WBC 5.7 RBC 4.18 L Hgb 13.2 Hct 39.4 L MCV 94.3 H MCH 31.6 MCHC 33.5 RDW Std Deviation 45.1 H RDW Coeff of Jeanne 13.0 Plt Count 185 MPV 9.4 Immature Gran % (Auto) PRESSURE CONTROLLER Neut % (Auto) PRESSURE CONTROLLER Lymph % (Auto) PRESSURE CONTROLLER [place] % (Auto) PRESSURE CONTROLLER Eos % (Auto) PRESSURE CONTROLLER Baso % (Auto) PRESSURE CONTROLLER Absolute Neuts (auto) 3.6 Absolute Lymphs (auto) 0.74 L Total Counted 100 Neutrophils % (Manual) 52 Band Neutrophils % 11 H Lymphocytes % (Manual) 13 L Monocytes % (Manual) 6 Metamyelocytes % 18 H Nucleated RBC % 0 [address] Review May foll Toxic Granulation RARE Dohle Bodies RARE Platelet Estimate ADEQUATE RBC Morphology NORM C+C PT 21.2 H INR 1.8 APTT 37.2 H Sodium 134 L Potassium 4.2 Chloride 101 Carbon Dioxide 24.0 Anion Gap 9 BUN 27 H Creatinine 1.83 H Estim Creat Clear Calc 31.10 Est GFR (MDRD) Af Amer 46 L Est GFR (MDRD) Non-Af 38 L BUN/Creatinine Ratio 14.8 Glucose 143 H Lactic Acid Calcium 8.8 Troponin I 0.034 07/16/19 11:15 WBC RBC Hgb Hct MCV MCH MCHC RDW Std Deviation RDW Coeff of Jeanne Plt Count MPV Immature Gran % (Auto) Neut % (Auto) Lymph % (Auto) [place] % (Auto) Eos % (Auto) Baso % (Auto) Absolute Neuts (auto) Absolute Lymphs (auto) Total Counted Neutrophils % (Manual) Band Neutrophils % Lymphocytes % (Manual) Monocytes % (Manual) Metamyelocytes % Nucleated RBC % Diff Path Review Toxic Granulation Dohle Bodies Platelet Estimate RBC Morphology PT INR APTT Sodium Potassium Chloride Carbon Dioxide Anion Gap BUN Creatinine Estim Creat Clear Calc Est GFR (MDRD) Af Amer Est GFR (MDRD) Non-Af BUN/Creatinine Ratio Glucose Lactic Acid 3.2 H* Calcium Troponin I Current Medications Sodium Chloride () 1,000 mls @ 999 mls/hr IV .Q1H1M [facility]; Protocol Stop: 07/16/19 15:40 Assessment/Plan Active and Suspected Problems (Last Reviewed 07/14/19 @ 18:38 by Joan Charles) Severe sepsis (Acute) Community acquired pneumonia (Acute) RECOMMENDATIONS: 1. I would recommend that the patient be admitted to ICU setting over PCU. 2. Obtain repeat EKG, as the patient appears to be in atrial fibrillation. 3. Continue empiric antimicrobials, pending infectious work-up. 4. Wean supplemental oxygen as tolerated. We will plan to initiate BiPAP therapy, if clinically indicated. 5. Obtain ABG. 6. Repeat chest x-ray in the morning. IMPRESSIONS: 1. Acute hypoxemic respiratory failure Appears to be secondary to extensive left-sided community-acquired pneumonia. We will plan to continue antimicrobials and supplemental IV fluids as needed. Infectious work-up is currently pending. Wean supplemental oxygen to maintain saturations at or above 90%. If the patient worsens from a respiratory perspective, BiPAP can be utilized. Plan to obtain repeat plain film chest x- ray in the morning. 2. Severe sepsis likely secondary to community-acquired pneumonia Continue current supportive measures including supplemental IV fluid hydration along with empiric antimicrobials, pending infectious work-up. 3. Acute kidney injury Likely prerenal in etiology. Continue supplemental IV fluid hydration and support hemodynamics, as needed. Continue to monitor urine output. No current indication for renal replacement therapy. 4. Paroxysmal atrial fibrillation with rapid ventricular rate/coronary artery disease status post bypass/aortic valve replacement The patient did appear to have gone into atrial fibrillation while in the emergency department. The patient is rapid and ventricular rate will also impact his respiratory status. Therefore, I do recommend that an amiodarone bolus and infusion be started. Consultation has been placed to cardiology. CODE status: Discussed CODE status at length including difference between FULL code, DNR-CCA and DNR-CC status. Following discussions about the differences in these status, patient requested full CODE STATUS. Advanced Care Planning Face to Face Time: 15 minutes This note was generated with [employer] software. It may contain incorrect words, spelling, and punctuation that were not noted in checking the note before signing. Code Visit Inpatient E&M: 65960 Init Hosp L3 Procedures: 68469 Advncd Care Plan 30 Min
[2019-07-16] MEDS: 0.9% Normal Saline 1,000 ML 999 ML IV (14:36)
--- NOTE | 2019-07-16 15:20 | NURSING ---
pt severely tachypnic/tachycardic, gasping respers. 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 breathing tx in progress. Dr. Bolivar aware
[2019-07-16 15:21] LABS: ALB/GLOB Ratio 0.7 RATIO (0.9-2.4); AST(SGOT) 24 U/L (15-37); Alanine Aminotransfer ALT/SGPT 29 U/L (16-61); Albumin, Serum 3.1 g/dL (3.2-5.0); Alkaline Phosphatase 63 U/L (45-117); Anion Gap 8 (5-15); BUN 27 mg/dL (7-18); BUN/Creat Ratio 14.6 RATIO (10-20); Chloride 102 mmol/L (98-107); Creatinine, Serum 1.85 mg/dL (0.70-1.30); EST Glomerular Filtration Rate 38 mL/min (>60); Est Glom Filt Rate - Afr Amer 46 mL/min (>60); Estimated Creatinine Clearance 30.77 ml/min; Globulin 4.4 g/dL (2.2-4.2); Glucose 141 mg/dL (74-106); Potassium 4.2 mmol/L (3.5-5.1); Protein, Total 7.5 g/dL (6.4-8.2); Sodium Level 134 mmol/L (136-145)
[2019-07-16] MEDS: Metoprolol Tartrate 5 MG/5 ML Vial IV (15:40)
[2019-07-16] MEDS: Albuterol 2.5 MG/3 ML VIAL.NEB. INHALATION (15:40)
[2019-07-16 15:47] LABS: Reflex Lactate? Y
[2019-07-16] MEDS: 0.9% Saline Lock 10 ML Syringe IV (16:05)
[2019-07-16] MEDS: 0.9% Normal Saline 1,000 ML 75 ML IV (16:36)
[2019-07-16 16:45] LABS: Allen Test POS; Base Excess -10 mmol/L (-2 to +2); Bicarbonate 14.9 mmol/L (22-26); Blood Gas Specimen Type ART; EPAP 8; FI02 60; IPAP 14; PO2 88 mmHG (75-100); RR 12; SITE R Brachial; SO2 97 % (95-99); Time Given 1635; Total Carbon Dioxide 16 mmol/L; pCO2 25.2 mmHg (35-45); pH 7.38 (7.35-7.45)
[2019-07-16 16:47] LABS: Lactic Acid 2.3 mmol/L (0.4-1.9)
[2019-07-16 18:18] LABS: M R Staph aureus DNA By PCR Negative (Negative); Probe Check PASS; Specimen Processing Control PASS
[2019-07-16 18:51] LABS: Magnesium 2.2 mg/dL (1.6-2.6); Phosphorus 2.3 mg/dL (2.5-4.9)
[2019-07-16 19:17] LABS: International Normalized Ratio 1.9; Partial Thromboplast Time 32.1 Seconds (24.1-36.2); Prothrombin Time (Protime)PT. 21.3 SECONDS (11.7-14.9)
[2019-07-16] MEDS: guaiFENesin 1,200 MG Tablet 1200 MG PO (23:03)
[2019-07-16] MEDS: APIXABAN 5 MG TABLET PO (23:03)
[2019-07-17] VITALS (62 sets, daily range): BP systolic 58–158; BP diastolic 32–86; PULSE 88–154; RESP 12–142; TEMP 37–38; O2SAT 85–99
[2019-07-17] MEDS: Digoxin 250 MCG/ML Ampul 500 MCG IV (02:50)
[2019-07-17] MEDS: 0.9% Saline Lock 10 ML Syringe IV (02:50)
[2019-07-17] MEDS: Ipratropium/Albuterol Sulfate 3 ML AMPUL.NEB INHALATION ×6 (04:00→23:12)
[2019-07-17 04:20] LABS: Absolute Lymphocyte Count 0.34 X10^3/uL (0.83-4.51); Absolute Neutrophil Count 4.3 X10^3/uL (2.0-7.7); Basophil# 0.02 X10^3/uL; Basophil% 0.4 % (0-1); Hematocrit 35.4 % (40-54); Lymphocyte # 0.34 X10^3/ul (4.0); Lymphocyte % 7.1 % (19-41); Mean Corp Hgb Conc 33.9 g/dL (32-36); Mean Corpuscular Hgb 31.6 pg (27.0-32.0); Mean Corpuscular Volume 93.2 fL (80-94); Mean Platelet Vol. 9.3 fl (6.2-12.0); Monocyte# 0.09 X10^3/uL; Monocyte% 1.9 % (0-10); NRBC Flagged by Analyzer 0 % (0-5); Neutrophil # 4.26 X10^3/uL (2.7-7.7); Neutrophil % 89.5 % (47-70); POSITIVE DIFFERENTIAL YES; POSITIVE MORPHOLOGY YES; Platelet Count 146 K/mm3 (150-450); RBC Distribution Width CV 13.2 % (11.6-14.6); RBC Distribution Width SD 45.8 fl (35.1-43.9); White Blood Count 4.8 K/mm3 (4.4-11.0)
[2019-07-17 05:01] LABS: Differential Indicated SCAN CRITERIA MET
[2019-07-17] MEDS: 0.9% Normal Saline 1,000 ML 75 ML IV (05:08)
[2019-07-17 05:26] LABS: AST(SGOT) 26 U/L (15-37); Alanine Aminotransfer ALT/SGPT 25 U/L (16-61); Albumin, Serum 2.2 g/dL (3.2-5.0); Alkaline Phosphatase 52 U/L (45-117); Anion Gap 10 (5-15); BUN 26 mg/dL (7-18); BUN/Creat Ratio 16.2 RATIO (10-20); Bilirubin, Direct 0.51 mg/dL (0.00-0.30); Calcium,Total 7.6 mg/dL (8.5-10.1); Chloride 107 mmol/L (98-107); EST Glomerular Filtration Rate 45 mL/min (>60); Est Glom Filt Rate - Afr Amer 54 mL/min (>60); Estimated Creatinine Clearance 35.57 ml/min; Globulin 3.9 g/dL (2.2-4.2); Glucose 119 mg/dL (74-106); Potassium 4.1 mmol/L (3.5-5.1); Protein, Total 6.1 g/dL (6.4-8.2); Sodium Level 136 mmol/L (136-145); Thyroid Stim Hormone (TSH) 0.87 uIU/mL (0.358-3.74)
[2019-07-17] MEDS: Metoprolol Tartrate 25 MG Tablet PO (06:05)
--- NOTE | 2019-07-17 06:43 | RAD_ITS ---
STUDY: X-RAY CHEST REASON FOR EXAM: Male, 79 years old. RESPIRATORY DISTRESS TECHNIQUE: Single AP portable view of the chest. COMPARISON: Comparison is made with prior study dated July 16, 2019. FINDINGS: EKG electrodes are seen. Since prior study, there has been progressive infiltration in the left upper lobe. Increased markings are also seen at the left lung base. Stable appearance of the right lung. There is blunting of both costophrenic angles worse on the left side. Sternal cerclage wires and vascular clips are present from a prior sternotomy and coronary artery bypass graft procedure (CABG). Normal mediastinum and josé miguel. Normal visualized pulmonary arteries. There is atherosclerotic calcification of the aortic arch with tortuosity. There are diffuse degenerative changes of the visualized thoracic spine. Normal visualized ribs, clavicles, and shoulders. There is no demonstrated abnormality of the visualized soft tissue structures of the upper abdomen. RAD/Chest 1 View (Portable) IMPRESSION: Progressive left upper lobe infiltrate. Electronically Signed: Behzad Jimenez, at 8:27 EST , Service support ,
--- NOTE | 2019-07-17 07:21 | PN_ITS ---
Subjective: The patient was seen and examined at the bedside this morning. Events from the last 24 hours have been reviewed. The patient is currently afebrile, but remains tachycardic with tenuous respiratory status. The patient has been in atrial fibrillation with a rapid ventricular rate since the emergency department. His elevated heart rates continued over the course of the night, which required the administration of both digoxin and repeat amiodarone bolus. The patient remains tachypneic with labored breathing this morning. Repeat plain film chest x-ray this morning revealed significant left-sided airspace disease with air bronchograms. Bedside Intubation: Indication: Acute hypoxemic respiratory failure Consent was obtained from: Patient The patient was placed in the appropriate sniffing position. Preoxygenated sedation via bag valve mask was provided for a minimum of 3 minutes. The patient had continuous cardiac as well as pulse oximetry monitoring during the procedure. Procedure sedation was provided by the administration of 2 mg of Versed and 20 mg of etomidate. Direct laryngoscopy was then performed using a number 4 MAC blade, which revealed a grade 1 view. A 8.0 mm endotracheal tube was visualized advancing between the cords to the level of 24 cm at the lip. The stylette was then removed and discarded. Tube placement was confirmed by fogging in the tube along with equal and bilateral breath sounds. Colorimetric change was visualized on the CO2 meter. The cuff was then inflated and the tube secured using a commercially available device. A good pulse oximetry waveform was seen on the monitor throughout the procedure. A portable chest x-ray has been ordered to confirm appropriate placement. The patient tolerated the procedure well. Objective: The patient's most recent lab work, culture data and imaging studies have all been personally reviewed. General: Alert, Cooperative, - - Ill in appearance. BiPAP mask currently in place. HEENT: Atraumatic, PERRLA, Normocephalic Oral: Dry Mucosa Neck: Supple, No Nodes, Trachea Midline Lungs: Diminished, Short of Breath, Tachypneic Cardiovascular: Normal S1, Normal S2, Irregular Rate, Murmur, Tachycardic Abdomen: Bowel Sounds Present, Soft, Non Tender Extremities: No clubbing, No cyanosis, No edema Skin: No breakdown Musculoskeletal: No Tenderness to Palpation of Joints or Extremities Lymphatic: No Cervical, Supraclavicular, or Inguinal Adenopathy Neurological: Neuro grossly intact Psych/Mental Status: Normal Affect, Appropriate Vital Signs Temp Pulse Resp BP Pulse Ox 98.6 F 111 H 31 H 144/80 H 90 07/17/19 04:00 07/17/19 07:00 07/17/19 07:00 07/17/19 07:00 07/17/19 07:00 Oxygen Flow Rate (L/min) 50 Oxygen Delivery Method Bi-pap Weight: 165 lb 5.547 oz Body Mass Index (BMI) 25.4 Intake and Output for Last 24 Hours 07/15/19 07/16/19 07/17/19 23:59 23:59 23:59 Intake Total 2753 / 3728.38 1740.00 / 1740.00 Output Total 300 / 300 250 / 250 Balance 2453 / 3428.38 1490.00 / 1490.00 Labs (Last 48 Hours) 07/16/19 07/16/19 07/16/19 11:14 11:15 11:15 WBC 5.7 RBC 4.18 L Hgb 13.2 Hct 39.4 L MCV 94.3 H MCH 31.6 MCHC 33.5 RDW Std Deviation 45.1 H RDW Coeff of Jeanne 13.0 Plt Count 185 MPV 9.4 Immature Gran % (Auto) MATERIALS SPECIALIST Neut % (Auto) MATERIALS SPECIALIST Lymph % (Auto) MATERIALS SPECIALIST [place] % (Auto) MATERIALS SPECIALIST Eos % (Auto) MATERIALS SPECIALIST Baso % (Auto) MATERIALS SPECIALIST Absolute Neuts (auto) 3.6 Absolute Lymphs (auto) 0.74 L Total Counted 100 Neutrophils % (Manual) 52 Band Neutrophils % 11 H Lymphocytes % (Manual) 13 L Monocytes % (Manual) 6 Metamyelocytes % 18 H Nucleated RBC % 0 Diff Path Review May foll Toxic Granulation RARE Dohle Bodies RARE Platelet Estimate ADEQUATE RBC Morphology NORM C+C PT 21.2 H INR 1.8 APTT 37.2 H Specimen Type Sample Site pH Bicarbonate Actual POC Total CO2 Base Excess O2 Saturation O2 % ABG pCO2 ABG pO2 Arturo Test Respiration Rate O2 Delivery Device EPAP IPAP Blood Gas Notified Whom Blood Gas Notified Time Sodium 134 L Potassium 4.2 Chloride 101 Carbon Dioxide 24.0 Anion Gap 9 BUN 27 H Creatinine 1.83 H Estim Creat Clear Calc 31.10 Est GFR (MDRD) Af Amer 46 L Est GFR (MDRD) Non-Af 38 L BUN/Creatinine Ratio 14.8 Glucose 143 H Lactic Acid Calcium 8.8 Phosphorus Magnesium Total Bilirubin Direct Bilirubin AST ALT Alkaline Phosphatase Troponin I 0.034 Total Protein Albumin Globulin Albumin/Globulin Ratio TSH MRSA (PCR) 07/16/19 07/16/19 07/16/19 11:15 11:15 11:15 WBC RBC Hgb Hct MCV MCH MCHC RDW Std Deviation RDW Coeff of Jeanne Plt Count MPV Immature Gran % (Auto) Neut % (Auto) Lymph % (Auto) [place] % (Auto) Eos % (Auto) Baso % (Auto) Absolute Neuts (auto) Absolute Lymphs (auto) Total Counted Neutrophils % (Manual) Band Neutrophils % Lymphocytes % (Manual) Monocytes % (Manual) Metamyelocytes % Nucleated RBC % Diff Path Review Toxic Granulation Dohle Bodies Platelet Estimate RBC Morphology PT INR APTT Specimen Type Sample Site pH Bicarbonate Actual POC Total CO2 Base Excess O2 Saturation O2 % ABG pCO2 ABG pO2 Arturo Test Respiration Rate O2 Delivery Device EPAP IPAP Blood Gas Notified Whom Blood Gas Notified Time Sodium 134 L Potassium 4.2 Chloride 102 Carbon Dioxide 24.0 Anion Gap 8 BUN 27 H Creatinine 1.85 H Estim Creat Clear Calc 30.77 Est GFR (MDRD) Af Amer 46 L Est GFR (MDRD) Non-Af 38 L BUN/Creatinine Ratio 14.6 Glucose 141 H Lactic Acid 3.2 H* Calcium 9.0 Phosphorus 2.3 L Magnesium 2.2 Total Bilirubin 1.60 H Direct Bilirubin AST 24 ALT 29 Alkaline Phosphatase 63 Troponin I Total Protein 7.5 Albumin 3.1 L Globulin 4.4 H Albumin/Globulin Ratio 0.7 L TSH MRSA (PCR) 07/16/19 07/16/19 07/16/19 15:55 15:55 16:30 WBC RBC Hgb Hct MCV MCH MCHC RDW Std Deviation RDW Coeff of Jeanne Plt Count MPV Immature Gran % (Auto) Neut % (Auto) Lymph % (Auto) [place] % (Auto) Eos % (Auto) Baso % (Auto) Absolute Neuts (auto) Absolute Lymphs (auto) Total Counted Neutrophils % (Manual) Band Neutrophils % Lymphocytes % (Manual) Monocytes % (Manual) Metamyelocytes % Nucleated RBC % Diff Path Review Toxic Granulation Dohle Bodies Platelet Estimate RBC Morphology PT 21.3 H INR 1.9 APTT 32.1 Specimen Type Sample Site pH Bicarbonate Actual POC Total CO2 Base Excess O2 Saturation O2 % ABG pCO2 ABG pO2 Arturo Test Respiration Rate O2 Delivery Device EPAP IPAP Blood Gas Notified Whom Blood Gas Notified Time Sodium Potassium Chloride Carbon Dioxide Anion Gap BUN Creatinine Estim Creat Clear Calc Est GFR (MDRD) Af Amer Est GFR (MDRD) Non-Af BUN/Creatinine Ratio Glucose Lactic Acid 2.3 H* Calcium Phosphorus Magnesium Total Bilirubin Direct Bilirubin AST ALT Alkaline Phosphatase Troponin I Total Protein Albumin Globulin Albumin/Globulin Ratio TSH MRSA (PCR) Negative 07/16/19 07/17/19 07/17/19 16:36 04:15 04:15 WBC 4.8 RBC 3.80 L Hgb 12.0 L Hct 35.4 L MCV 93.2 MCH 31.6 MCHC 33.9 RDW Std Deviation 45.8 H RDW Coeff of Jeanne 13.2 Plt Count 146 L MPV 9.3 Immature Gran % (Auto) 1.100 H Neut % (Auto) 89.5 H Lymph % (Auto) 7.1 L Lewis % (Auto) 1.9 Eos % (Auto) 0.0 Baso % (Auto) 0.4 Absolute Neuts (auto) 4.3 Absolute Lymphs (auto) 0.34 L Total Counted Neutrophils % (Manual) Band Neutrophils % Lymphocytes % (Manual) Monocytes % (Manual) Metamyelocytes % Nucleated RBC % [address] Review Toxic Granulation Dohle Bodies Platelet Estimate RBC Morphology PT INR APTT Specimen Type ART Sample Site R Brachial pH 7.38 Bicarbonate Actual 14.9 L POC Total CO2 16 Base Excess -10 L O2 Saturation 97 O2 % 60 ABG pCO2 25.2 L ABG pO2 88 Arturo Test POS Respiration Rate 12 O2 Delivery Device Bi / C PAP EPAP 8 IPAP 14 Blood Gas Notified Whom ICU MD Blood Gas Notified Time 1635 Sodium 136 Potassium 4.1 Chloride 107 Carbon Dioxide 19.0 L Anion Gap 10 BUN 26 H Creatinine 1.60 H Estim Creat Clear Calc 35.57 Est GFR (MDRD) Af Amer 54 L Est GFR (MDRD) Non-Af 45 L BUN/Creatinine Ratio 16.2 Glucose 119 H Lactic Acid Calcium 7.6 L Phosphorus Magnesium Total Bilirubin 1.10 H Direct Bilirubin 0.51 H AST 26 ALT 25 Alkaline Phosphatase 52 Troponin I Total Protein 6.1 L Albumin 2.2 L Globulin 3.9 Albumin/Globulin Ratio TSH 0.87 MRSA (PCR) Microbiology 07/16/19 16:30 Urine Catheter - Catheter Streptococcus pneumoniae Antigen (M - Final 07/16/19 16:30 Urine Catheter - Catheter Legionella Antigen - Final 07/16/19 11:50 Mucosa - Nose Respiratory Panel (PCR) - Final Medical Necessity - Tobacco Use Smoking Status: Former smoker - About 5 to 10 years states less than a pack per day Tobacco Use: Cigarettes, Cigars Assessment/Plan All Active Problems (Last Reviewed 07/14/19 @ 18:38 by Joan Charles) Severe sepsis (Acute) Community acquired pneumonia (Acute) 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) Atelectasis (Acute) 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) 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 Obtain arterial blood gas 1 hour post intubation. 2. Broaden antimicrobials to include vancomycin and Zosyn. 3. Continue amiodarone per cardiology recommendations. 4. Place PICC line. 5. Initiate Levophed to maintain hemodynamic stability, if clinically indicated. 6. Recheck troponin and obtain echocardiogram. 7. Start Pepcid down G-tube. 8. Okay to start tube feeds today. IMPRESSIONS: 1. Acute hypoxemic respiratory failure secondary to severe community-acquired pneumonia Unfortunately, the patient continued to decompensate clinically despite the use of noninvasive positive pressure ventilatory support. The patient's respiratory status is also complicated by the fact that he went back into atrial fibrillation yesterday. The patient did require intubation on the morning of July 17. His antibiotics have been broadened accordingly, pending further infectious work-up. We will plan to wean FiO2 to maintain oxygen saturations at or above 90%. Supplemental IV fluids can be discontinued from my perspective. 2. Severe sepsis likely secondary to community-acquired pneumonia Continue current supportive measures including invasive mechanical ventilatory support and broad-spectrum antimicrobial coverage, pending infectious work-up. 3. Acute kidney injury Likely prerenal in etiology. Continue current supportive measures as noted above. Continue to monitor urine output. No current indication for renal replacement therapy. 4. Paroxysmal atrial fibrillation with rapid ventricular rate/coronary artery disease status post bypass/aortic valve replacement The patient is currently being medically managed with the assistance of car diology. Repeat echocardiogram is pending. Continue amiodarone as ordered. UPDATE: Following the patient's intubation and with the initiation of sedative medications, the patient's hemodynamics became compromised. I strongly suspect that the patient's hypotension is likely the sequelae of the sedatives being utilized to keep him comfortable while being mechanically ventilated. We will plan to have a PICC line placed and the patient will be started on Levophed to maintain a mean arterial pressure at or above 65 mmHg. TIME: 42 minutes of critical care time, independent of procedures, was spent addressing the patient's acute hypoxemic respiratory failure, severe sepsis secondary to community-acquired pneumonia, acute kidney injury, paroxysmal atrial fibrillation with rapid ventricular rate, review of all data and collaboration with the care team. [phone]) Code Visit 9xxxx: [id number] Critical care first hour
--- NOTE | 2019-07-17 08:04 | PN_ITS ---
Patient Problems: Active and Suspected Problems (Last Reviewed 07/14/19 @ 18:38 by Joan Charles) Severe sepsis (Acute) Community acquired pneumonia (Acute) Reason for Visit: Acute hypoxic respiratory failure and multilobar pneumonia Objective: Patient went to [facility] with RVR in ER yesterday. Discussed with Dr. Lyles. [facility] with RVR mainly driven by sepsis. Metoprolol IV as needed to control heart rate as needed. Patient remained afebrile but has been tachycardic with Bob. fib heart rate going up to 150/min. Last evening patient also put on BiPAP for hypoxic respiratory failure patient is still short of breath and using accessory muscles on BiPAP 50% FiO2. Plan for intubation Antibiotic is broadened Vitals/I&O's: Vital Signs Temp Pulse Resp BP Pulse Ox 98.6 F 111 H 31 H 144/80 H 90 07/17/19 04:00 07/17/19 07:00 07/17/19 07:00 07/17/19 07:00 07/17/19 07:00 Oxygen Flow Rate (L/min) 50 Oxygen Delivery Method Bi-pap Weight: 165 lb 5.547 oz Body Mass Index (BMI) 25.4 Intake and Output for Last 24 Hours 07/15/19 07/16/19 07/17/19 23:59 23:59 23:59 Intake Total 2753 / 3728.38 1740.00 / 1740.00 Output Total 300 / 300 250 / 250 Balance 2453 / 3428.38 1490.00 / 1490.00 General: Alert, Oriented x3, Cooperative, - - Respiratory distress HEENT: Atraumatic, PERRLA, EOMI, Normocephalic Neck: Supple, No JVD, Negative Carotid Bruits Lungs: Diminished - Air entry diminished in the left lung. Coarse rales present on left lung, Rhonchi, Short of Breath, Tachypneic, Using Accessory Muscles, Wheezes Cardiovascular: Normal S1, Normal S2, No murmurs, Irregular Rate, Tachycardic Abdomen: Bowel Sounds Present, Soft, Non Tender, Non-Distended Extremities: Capillary Refill Less than 3 Seconds, Edema Skin: - - Scar of old injury present right leg Musculoskeletal: No Tenderness to Palpation of Joints or Extremities, Arthritic Changes Lymphatic: No Cervical, Supraclavicular, or Inguinal Adenopathy Neurological: Cranial nerves II-XII grossly intact, Deep Tendon Reflexes 2+/4 and Symmetrical, Neuro grossly intact Microbiology Past 72 Hours 07/16/19 16:30 Urine Catheter - Catheter Streptococcus pneumoniae Antigen (M - Final 07/16/19 16:30 Urine Catheter - Catheter Legionella Antigen - Final 07/16/19 11:50 Mucosa - Nose Respiratory Panel (PCR) - Final Laboratory Results 07/16/19 11:14: PT 21.2 H, INR 1.8, APTT 37.2 H 07/16/19 11:15: WBC 5.7, RBC 4.18 L, Hgb 13.2, Hct 39.4 L, MCV 94.3 H, MCH 31.6, MCHC 33.5, RDW Std Deviation 45.1 H, RDW Coeff of Jeanne 13.0, Plt Count 185, MPV 9.4, Immature Gran % (Auto) ELECTROMEDICAL EQUIPMENT REPAIRER, Neut % (Auto) ELECTROMEDICAL EQUIPMENT REPAIRER, Lymph % (Auto) ELECTROMEDICAL EQUIPMENT REPAIRER, Foard % (Auto) ELECTROMEDICAL EQUIPMENT REPAIRER, Eos % (Auto) ELECTROMEDICAL EQUIPMENT REPAIRER, Baso % (Auto) ELECTROMEDICAL EQUIPMENT REPAIRER, Absolute Neuts (auto) 3.6, Absolute Lymphs (auto) 0.74 L, Total Counted 100, Neutrophils % (Manual) 52, Band Neutrophils % 11 H, Lymphocytes % (Manual) 13 L, Monocytes % (Manual) 6, Metamyelocytes % 18 H, Nucleated RBC % 0, Diff Path Review May foll, Toxic Granulation RARE, Dohle Bodies RARE, Platelet Estimate ADEQUATE, RBC Morphology NORM C+C 07/16/19 11:15: Sodium 134 L, Potassium 4.2, Chloride 101, Carbon Dioxide 24.0, Anion Gap 9, BUN 27 H, Creatinine 1.83 H, Estim Creat Clear Calc 31.10, Est GFR (MDRD) Af Amer 46 L, Est GFR (MDRD) Non-Af 38 L, BUN/Creatinine Ratio 14.8, Glucose 143 H, Calcium 8.8, Troponin I 0.034 07/16/19 11:15: Lactic Acid 3.2 H* 07/16/19 11:15: Sodium 134 L, Potassium 4.2, Chloride 102, Carbon Dioxide 24.0, Anion Gap 8, BUN 27 H, Creatinine 1.85 H, Estim Creat Clear Calc 30.77, Est GFR (MDRD) Af Amer 46 L, Est GFR (MDRD) Non-Af 38 L, BUN/Creatinine Ratio 14.6, Glucose 141 H, Calcium 9.0, Total Bilirubin 1.60 H, AST 24, ALT 29, Alkaline Phosphatase 63, Total Protein 7.5, Albumin 3.1 L, Globulin 4.4 H, Albumin/Globu miley Ratio 0.7 L 07/16/19 11:15: Phosphorus 2.3 L, Magnesium 2.2 07/16/19 15:55: PT 21.3 H, INR 1.9, APTT 32.1 07/16/19 15:55: Lactic Acid 2.3 H* 07/16/19 16:30: MRSA (PCR) Negative 07/16/19 16:36: Specimen Type ART, Sample Site R Brachial, pH 7.38, Bicarbonate Actual 14.9 L, POC Total CO2 16, Base Excess -10 L, O2 Saturation 97, O2 % 60, ABG pCO2 25.2 L, ABG pO2 88, Arturo Test POS, Respiration Rate 12, O2 Delivery Device Bi / C PAP, EPAP 8, IPAP 14, Blood Gas Notified Whom ICU MD, Blood Gas Notified Time 5560 07/17/19 04:15: Sodium 136, Potassium 4.1, Chloride 107, Carbon Dioxide 19.0 L, Anion Gap 10, BUN 26 H, Creatinine 1.60 H, Estim Creat Clear Calc 35.57, Est GFR (MDRD) Af Amer 54 L, Est GFR (MDRD) Non-Af 45 L, BUN/Creatinine Ratio 16.2, Glucose 119 H, Calcium 7.6 L, Total Bilirubin 1.10 H, Direct Bilirubin 0.51 H, AST 26, ALT 25, Alkaline Phosphatase 52, Total Protein 6.1 L, Albumin 2.2 L, Globulin 3.9, TSH 0.87 07/17/19 04:15: WBC 4.8, RBC 3.80 L, Hgb 12.0 L, Hct 35.4 L, MCV 93.2, MCH 31.6, MCHC 33.9, RDW Std Deviation 45.8 H, RDW Coeff of Jeanne 13.2, Plt Count 146 L, MPV 9.3, Immature Gran % (Auto) 1.100 H, Neut % (Auto) 89.5 H, Lymph % (Auto) 7.1 L, Foard % (Auto) 1.9, Eos % (Auto) 0.0, Baso % (Auto) 0.4, Absolute Neuts (auto) 4.3, Absolute Lymphs (auto) 0.34 L, Nucleated RBC % 0 Current Medications Acetaminophen (Tylenol) 650 mg PO Q6H PRN PRN PRN Reason: Pain or Fever Albuterol/Ipratropium (Duoneb) 3 ml INHALATION Q4H.RT [facility] Last Admin: 07/17/19 06:54 Dose: 3 ml Documented by: Apixaban (Eliquis) 5 mg PO BID [facility] Last Admin: 07/16/19 23:03 Dose: 5 mg Documented by: Aspirin (Ecotrin) 81 mg PO DAILYCM [facility] Last Admin: 07/16/19 17:44 Dose: Not Given Documented by: Glucagon () 1 mg IM .X1 PRN PRN Reason: Hypoglycemia Guaifenesin (Mucinex) 1,200 mg PO BID [facility] Last Admin: 07/16/19 23:03 Dose: 1,200 mg Documented by: Sodium Chloride () 1,000 mls @ 75 mls/hr IV .[id number] [facility] Last Admin: 07/17/19 05:08 Dose: 75 mls/hr Documented by: Dextrose (Dextrose 10%-Water) 250 mls @ 999 mls/hr IV .Q16M PRN; Protocol PRN Reason: HYPOGLYCEMIA Amiodarone HCl 360 mg/ (Dextrose) 200 mls @ 16.667 mls/hr CONT INF .Q12H [facility] Stop: 07/17/19 18:14 Last Admin: 07/17/19 00:43 Dose: 0.5 mg/min, 16.7 mls/hr Documented by: Piperacillin Sod/Tazobactam (Sod 3.375 gm/ Sodium Chloride) 50 mls @ 12.5 mls/hr IV Q8 [facility] Vancomycin IV Pharmacy to Dose (1 ea/ Sodium Chloride) 500 mls @ 250 mls/hr IV PRN PRN; Protocol PRN Reason: Rx to Dose Vancomycin HCl 2,000 mg/ (Sodium Chloride) 540 mls @ 250 mls/hr IV X1 ONE Stop: 07/17/19 11:09 Metoprolol Tartrate (Lopressor (Beta Shereen)) 25 mg PO BID [facility] Last Admin: 07/17/19 06:05 Dose: 25 mg Documented by: Multivitamins (Multivitamin) 1 tablet PO DAILY@0800 [facility] Potassium Chloride (K-Dur) 10 meq PO DAILY [facility] Rosuvastatin Calcium (Crestor) 10 mg PO QHS [facility] Last Admin: 07/16/19 23:04 Dose: 10 mg Documented by: Sodium Chloride () 10 - 40 ml IV UD PRN PRN Reason: SALINE FLUSH Last Admin: 07/17/19 02:50 Dose: 20 ml Documented by: STROKE Vital Signs/Narrative: Vital Signs Pulse Resp BP BP Pulse Ox 07/17/19 07:00 111 H 31 H 144/80 H 90 07/17/19 06:05 135 H 120/81 H 07/17/19 06:00 92 17 110/62 93 07/17/19 05:03 150 H 27 H 118/62 94 07/17/19 05:00 88 25 H 116/67 94 07/17/19 04:15 131 H 31 H 116/72 96 Medical Necessity - Tobacco Use Smoking Status: Former smoker - About 5 to 10 years states less than a pack per day Tobacco Use: Cigarettes, Cigars Assessment/Plan All Active Problems (Last Reviewed 07/14/19 @ 18:38 by Joan Charles) Severe sepsis (Acute) Community acquired pneumonia (Acute) 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) Atelectasis (Acute) 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) technician terminal and repeater (current) use of anticoagulants (Acute) Atrial fibrillation (Acute) Non-rheumatic aortic stenosis (Resolved) The patient is a 79 year old M with history of coronary artery disease status post CABG three-vessel, aortic stenosis status post AVR in April 2018, paroxysmal A. fib was sent to urgent care from Dr. Lyles office after he was found short of breath and hypoxic. From urgent care patient was sent to ER. Patient was not on oxygen at home In ED, patient was found hypoxic, 88% on room air, tachypneic respiratory 24, 93% on 3 L oxygen. During conversation and exam, he became more hypoxic and tachypneic, respiratory 35/min and 92% oxygen requirement 5 L. Chest x-ray showed large area of consolidation in the left upper lobe and lingular lobe same superior segment of left lower lobe. While in ER, patient went into A. fib with RVR, on monitor heart rate 155/min. EKG was done shows A. fib with RVR at 60/min 1. Severe sepsis (tachycardia, tachypnea, leukocytosis, bandemia and lactic acidosis, 3.2, coagulopathy INR 1.8 total bili 1.6,) and acute hypoxic respiratory failure, present on admission secondary to left upper lobe/lingular and superior segment of left lower lobe, multilobar community-acquired pneumonia: Patient is being admitted in ICU. Merchandising Internship consulted and discussed. IV fluid normal saline 30 mils per KG in first 4 hours and then maintenance fluid. Currently patient is normotensive. Pneumonia work-up including blood cultures x2, sputum culture, urinary antigens, MRSA nasal screen and respiratory panel. UA with urine culture also ordered. Started on Levaquin 750 mg IV daily. Patient did not any recent antibiotic. 07/17/2019: Overall patient respiratory status deteriorated requiring BiPAP since evening. Patient is intubated. Earlier CODE STATUS was discussed by clinical nursing professor and the patient and family agreed for full code. Vent support. Urinary antigens are negative. Blood cultures x2 and sputum culture pending. Respiratory panel negative. Antibiotic is brought in to vancomycin and Zosyn. Levaquin discontinued. 2. A. fib with RVR with history of tachybradycardia syndrome: Patient has history of paroxysmal A. fib and had postoperative A. fib after CABG. On metoprolol 50 mg twice daily. Consult cardiology. Eliquis 5 mg twice daily. Metoprolol 5 mg IV one dose ordered to see the response of tachycardia. Patient might drop blood pressure on Cardizem. Patient is not on anticoagulant as per home medication 07/17: Patient remained in and out of A. fib. On Eliquis. Started on amiodarone drip after 150 mg IV bolus by bag machine helper. Current heart rate in 111. 3. Acute kidney injury most likely prerenal with sepsis/ATN: Patient baseline creatinine is unknown, last one 1.2 in August 2013. Admitted with BUN/creatinine 27/1.83. Patient urine output has been 0.17 mL/kg/h. Total 550 mL charted since admission. Positive fluid balance about 4 L. Patient is getting Barkley catheterization. Monitor intake and output. Electrolytes are fairly normal limit except bicarb 19, anion gap 10. 2 was 24 yesterday 4. Coronary artery disease status post CABG x3, aortic stenosis status post aortic valve replacement in April 2018: Recent echo on 07/03/2019 reported as EF 65% with stage I diastolic dysfunction. Moderate concentric LVH. Mildly dilated RV with normal systolic function. LA moderately enlarged. Right atrium moderately enlarged. Mild diffuse mitral valve thickening with trivial MR. Mild TR, RVSP 30 mmHg. Stable appearing bioprosthetic aortic valve apparatus. First EKG in the ER normal sinus rhythm at [address]-T changes Home cardiac medications aspirin, metoprolol rosuvastatin continued. Lasix held. 4. Other comorbidities include hypertension, dyslipidemia: Home medication reconciliation done. Code Visit Inpatient E&M: 83626 Subs Hosp L3
--- NOTE | 2019-07-17 08:05 | NURSING ---
Dr. Bolivar, RT present in pt room, prep for intubation 08 Versed 2mg IV given 08 Etomidate 20mg IV push given 0815 #8.0 OET , 24 cm at lip w/good color change.
[2019-07-17] MEDS: Midazolam 2 MG/2 ML Syringe IV (08:10)
[2019-07-17] MEDS: Etomidate 20 MG/10 ML Vial IV (08:12)
[2019-07-17] MEDS: Lidocaine Jelly 2% 20 ML Syringe (URO-JET) 20 APPLIC TOPICAL (08:30)
[2019-07-17] MEDS: fentaNYL drip 100 ML 5 MCG IV (08:30)
[2019-07-17] MEDS: Propofol 10MG/Ml 1,000 MG/100 ML Bottle 4.5 MG CONT INF (08:30)
--- NOTE | 2019-07-17 08:33 | RAD_ITS ---
STUDY: X-RAY CHEST REASON FOR EXAM: Male, 79 years old. ETT/OG PLACEMENT TECHNIQUE: Single AP portable view of the chest. COMPARISON: Comparison is made with prior study done earlier in the day. FINDINGS: An endotracheal tube is in situ. The tip is at 2.1 cm proximal to the donaldo. An orogastric tube is seen with the tip in the distal stomach. Stable consolidation in the left upper and left lower lobes as well as increased markings in the right lung base. Sternal cerclage wires and vascular clips are present from a prior sternotomy and coronary artery bypass graft procedure (CABG). Normal mediastinum and josé miguel. Normal visualized pulmonary arteries. There is atherosclerotic calcification of the aortic arch with tortuosity. There are diffuse degenerative changes of the visualized thoracic spine. Normal visualized ribs, clavicles, and shoulders. There is no demonstrated abnormality of the visualized soft tissue structures of the upper abdomen. RAD/Chest 1 View (Portable) IMPRESSION: The tip of the endotracheal tube is at 2.1 cm proximal to the donaldo. The tip of the orogastric tube is in the distal stomach. Stable opacification in the left hemithorax as well as increased markings at the right lung base. Electronically Signed: Behzad Jimenez, at 10:02 EST , Service support ,
[2019-07-17] MEDS: TITRATION PARAMETER CHANGE 1 EACH IV ×2 (08:35→20:57)
--- NOTE | 2019-07-17 08:37 | PCM.CONS.C ---
Problem List (1) Severe sepsis Status: Acute (2) Tachy-raissa syndrome Status: Acute Comment: Noted on discharge summary from [facility] after CABG and AVR (3) Postoperative atrial fibrillation Status: Acute (4) History of aortic stenosis Status: Chronic Comment: ROSA to LAD, reverse SVG to OM and PDA of RCA along with AVR using 25 Andrew Awan valve, per Dr. Darrion Meyer, [facility] (5) H/O aortic valve replacement Status: Chronic Comment: ROSA to LAD, reverse SVG to OM and PDA of RCA along with AVR using 25 Andrew Awan valve, per Dr. Darrion Meyer, [facility] (6) S/P CABG x 3 Status: Chronic Comment: ROSA to LAD, reverse SVG to OM and PDA of RCA along with AVR using 25 Andrew Awan valve, per Dr. Darrion Myeer, [facility] (7) half-way (current) use of anticoagulants Status: Acute (8) Atrial fibrillation Status: Acute (9) Hypertension Status: Chronic (10) Dyslipidemia Status: Chronic Reason for Consult Date of Consultation: 07/17/19 Reason for Consultation: Coronary artery disease, status post bypass, status post aortic valve replacement, atrial fibrillation, hypertension, hypercholesterolemia, respiratory distress and sepsis History of Present Illness: DEIDRE CROWDER, is a very pleasant 79 nondiabetic gentleman, previous smoker quit around 4-5 years ago after a [id number] smoking history, with associated hypertension, hypercholesterolemia, status post bilateral pneumothorax approximately 4 years ago after suffering a work-related injury when a pipe hit his chest. He required bilateral chest tubes and was transferred to [facility] at that time. At that time a murmur was detected and he was told at that time he had aortic stenosis. He then followed up at the [facility] and underwent an echocardiogram which demonstrated an aortic valve area of less than 0.80 cm?, a peak and mean gradient of 61 and 36 mmHg. He then underwent a left heart catheterization at the [facility] on 09/18/17 which was a left heart cath only which demonstrated 30-40% left main ostial stenosis, 65% mid LAD, 50% left circumflex, and occluded RCA with svav-mg-wclsy collaterals. Patient was supposed to be referred for surgical aortic valve replacement and two-vessel bypass surgery but apparently that never occurred despite efforts by the family to contact the [facility]. 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 In addition, as part of his cardiac workup at the [facility] on 08/28/17 the patient underwent a modified Tyrell treadmill imaging study which demonstrated moderate ischemia in the circumflex territory, ST elevation in aVR and aVL lasting 13 minutes into recovery consistent with significant aortic stenosis. Patient was transferred to [facility] on 05/22/18 underwent bypass surgery x3 with a ROSA to the LAD, saphenous vein graft to the obtuse marginal, and saphenous vein graft to the PDA as well as an aortic valve replacement receiving a #[address] Meyer. He is no longer on amiodarone for transient afib. Since that time he had been doing extraordinarily well. He felt much better, his edema is gone, and now he was able to lay down flat without difficulty and go to sleep. He has done very well, and feels much better since his bypass surgery and aortic valve replacement. 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 He denies any chest pain, angina, shortness of breath, dyspnea on exertion or edema when I saw him in the office yesterday except for over the last several days. He is keenly aware when he goes in and out of atrial fibrillation, and has had no palpitations since her last visit. His most recent echocardiogram dated 07/03/2019 is as follows: Moderate concentric left ventricular hypertrophy. The estimated ejection fraction is 65 %. Stage 1 diastolic dysfunction. Mildly dilated right ventricle. The left atrium is moderately enlarged. The right atrium is moderately enlarged. Trivial mitral valve insufficiency. Mild (1+) tricuspid valve insufficiency. Right ventricular systolic pressure estimated to be 30 mmHg. Stable appearing and normal functioning bioprosthetic aortic valve apparatus. Compared to MARY report dated 02/12/2018, shosh[place]pai[place] aortic valve has been replaced with a bioprosthetic aortic valve. As of 07/14/2019 the patient developed nausea and vomiting as well as coughing up productive sputum. He had not sought medical attention with a PCP or [facility] at this time. He denies any fevers, chills, chest pain, lightheadedness or dizziness. He did obtain a flu shot this year. I examined the patient in the in the office, and recommended the patient undergo a chest x-ray PA and lateral for what sounded like left-sided crackles. Chest x-ray was obtained which demonstrated a dense left pneumonic infiltrate, and the patient was admitted through the emergency room. He had some minor respiratory distress which apparently was initially treated with BiPAP therapy successfully, then the patient developed atrial fibrillation sometime late yesterday evening, with rapid ventricular response. I was called with this information and we placed the patient on IV amiodarone drip. Despite this his heart rate has continued to remain elevated in fact is gotten faster, and his respiratory distress has worsened despite being on BiPAP for the better part of 12 hours. After discussing the options with the patient and Dr. Bolivar, it was determined the patient's best course of action would be for elective intubation before his respiratory situation further deteriorated. Patient agreed to do this. Echocardiogram is pending. Blood cultures are pending. So far his strep pneumo and Legionella are negative. Patient was initially treated with Levaquin and then his antibiotic spectrum was broadened to Vanco and Zosyn. [] Past Medical History Allergies/Adverse Reactions: Allergies atorvastatin Adverse Reaction (Verified 07/16/19 11:07) myalgias Home Medications: Ambulatory Orders Medication Instructions Recorded albuterol sulfate 90 mcg/actuation 2 puff INHALATION Q6H PRN 06/12/18 aerosol inhaler fluticasone 250 mcg-salmeterol 50 1 inh INHALATION BID 06/12/18 mcg/dose blistr powdr for inhalation metoprolol tartrate 50 mg tablet 50 mg PO BID 01/01/19 Aspirin [Aspir-Low] 81 mg PO DAILY@0800 07/16/19 Furosemide [Lasix] 20 mg PO BID 07/16/19 Multivitamin with Minerals 1 tab PO DAILY 07/16/19 [Multiple Vitamin] Potassium Chloride 10 meq PO DAILY 07/16/19 Rosuvastatin Calcium 10 mg PO DAILY 07/16/19 Past Medical History (Chronic Problems): Chronic Problems (Last Reviewed 07/14/19 @ 18:38 by Joan Charles) History of aortic stenosis (Chronic) ROSA to LAD, reverse SVG to OM and PDA of RCA along with AVR using 25 Andrew Awan valve, per Dr. Darrion Meyer, [facility] H/O aortic valve replacement (Chronic 05/22/18) ROSA to LAD, reverse SVG to OM and PDA of RCA along with AVR using 25 Andrew Awan valve, per Dr. Darrion Meyer, [facility] S/P CABG x 3 (Chronic 05/22/18) ROSA to LAD, reverse SVG to OM and PDA of RCA along with AVR using 25 Andrew Awan valve, per Dr. Darrion Meyer, [facility] Hypertension (Chronic) Dyslipidemia (Chronic) Atherosclerosis of coronary artery of shosh[place]aiute heart without angina pectoris (Chronic) Surgical History: coronary bypass surgery - *Family History Paternal History Items: Heart Disease Smoking Status: Former smoker - About 5 to 10 years states less than a pack per day Tobacco Use: Cigarettes, Cigars Alcohol: None Drugs: None Review of Systems - Review of Systems General: Denies: Fever, Night Sweats, Fatigue Cardiovascular: Reports: Shortness of Breath, Shortness of Breath at Rest. Denies: Chest Discomfort, Orthopnea, PND, Peripheral Edema, Palpitations, Lightheadedness, Dizziness, Near Syncope, Syncope Respiratory: Denies: Cough, Sputum Production, Hemoptysis Gastrointestinal: Denies: Hematemesis, Hematochezia, Melena Genitourinary: Denies: Dysuria, Hematuria Skin: Denies: Rash Subjectve: Patient laying in bed on BiPAP, awake, alert, answers questions appropriately. Patient is tachypneic, tachycardic, blood pressure okay though. No outward signs of endocarditis. Objective: Vital Signs Temp Pulse Resp BP Pulse Ox 98.6 F 111 H 31 H 144/80 H 90 07/17/19 04:00 07/17/19 07:00 07/17/19 07:00 07/17/19 07:00 07/17/19 07:00 Oxygen Flow Rate (L/min) 50 Oxygen Delivery Method Bi-pap Weight: 165 lb 5.547 oz Body Mass Index (BMI) 25.4 Intake and Output for Last 24 Hours 07/15/19 07/16/19 07/17/19 23:59 23:59 23:59 Intake Total 2753 / 3728.38 1740.00 / 1740.00 Output Total 300 / 300 250 / 250 Balance 2453 / 3428.38 1490.00 / 1490.00 General: Awake, Alert, Oriented x 3 HEENT: PERRL, EOMI, Sclera Non Icteric Neck: Supple, Good ROM, No Lymph Node Enlargement Lungs: Diminished Left Base Cardiovascular: Irregular Rhythm, Normal S2, No Rubs, No Gallops Murmur Murmur: Grade 2/6, Crescendo-Decrescendo Vascular: No Carotid Bruits, Normal Femoral Pulses, Normal Radial Pulses, Normal Dorsalis Pedal Pulse, Normal Posterior Tibial Pulses Abdomen: Bowel Sounds Present, Soft, Non Tender, No HSM, No Organomegaly Extremities: No Cyanosis, No Clubbing, No edema Neurological: No Focal Motor or Sensory Deficit 07/16/19 11:14: PT 21.2 H, INR 1.8, APTT 37.2 H 07/16/19 11:15: WBC 5.7, RBC 4.18 L, Hgb 13.2, Hct 39.4 L, MCV 94.3 H, MCH 31.6, MCHC 33.5, Plt Count 185, MPV 9.4, Immature Gran % (Auto) LAUNDRY EQUIPMENT OPERATOR, Neut % (Auto) LAUNDRY EQUIPMENT OPERATOR, Lymph % (Auto) LAUNDRY EQUIPMENT OPERATOR, [place] % (Auto) LAUNDRY EQUIPMENT OPERATOR, Eos % (Auto) LAUNDRY EQUIPMENT OPERATOR, Baso % (Auto) LAUNDRY EQUIPMENT OPERATOR, Absolute Neuts (auto) 3.6, Total Counted 100, Neutrophils % (Manual) 52, Band Neutrophils % 11 H, Lymphocytes % (Manual) 13 L, Monocytes % (Manual) 6, Metamyelocytes % 18 H, Nucleated RBC % 0 07/16/19 11:15: Sodium 134 L, Potassium 4.2, Chloride 101, Carbon Dioxide 24.0, Anion Gap 9, BUN 27 H, Creatinine 1.83 H, Est GFR (MDRD) Af Amer 46 L, Est GFR (MDRD) Non-Af 38 L, BUN/Creatinine Ratio 14.8, Glucose 143 H, Calcium 8.8, Troponin I 0.034 07/16/19 11:15: Lactic Acid 3.2 H* 07/16/19 11:15: Sodium 134 L, Potassium 4.2, Chloride 102, Carbon Dioxide 24.0, Anion Gap 8, BUN 27 H, Creatinine 1.85 H, Est GFR (MDRD) Af Amer 46 L, Est GFR (MDRD) Non-Af 38 L, BUN/Creatinine Ratio 14.6, Glucose 141 H, Calcium 9.0, Total Bilirubin 1.60 H 07/16/19 11:15: Phosphorus 2.3 L, Magnesium 2.2 07/16/19 15:55: PT 21.3 H, INR 1.9, APTT 32.1 07/16/19 15:55: Lactic Acid 2.3 H* 07/16/19 16:36: pH 7.38, Bicarbonate Actual 14.9 L, POC Total CO2 16, Base Excess -10 L, O2 Saturation 97, ABG pCO2 25.2 L, ABG pO2 88, Arturo Test POS 07/17/19 04:15: Sodium 136, Potassium 4.1, Chloride 107, Carbon Dioxide 19.0 L, Anion Gap 10, BUN 26 H, Creatinine 1.60 H, Est GFR (MDRD) Af Amer 54 L, Est GFR (MDRD) Non-Af 45 L, BUN/Creatinine Ratio 16.2, Glucose 119 H, Calcium 7.6 L, Total Bilirubin 1.10 H, Direct Bilirubin 0.51 H 07/17/19 04:15: WBC 4.8, RBC 3.80 L, Hgb 12.0 L, Hct 35.4 L, MCV 93.2, MCH 31.6, MCHC 33.9, Plt Count 146 L, MPV 9.3, Immature Gran % (Auto) 1.100 H, Neut % (Auto) 89.5 H, Lymph % (Auto) 7.1 L, [place] % (Auto) 1.9, Eos % (Auto) 0.0, Baso % (Auto) 0.4, Absolute Neuts (auto) 4.3, Nucleated RBC % 0 Rhythm: EKG: Atrial fibrillation with rapid ventricular response LVH with repolarization abnormalities versus lateral ST segment depression with possible ischemia. EKG dated 07/16/2019 showed normal sinus rhythm, no acute changes. ECHO: Pending Stress Test: Cardiac Cath: PCI: CT Surgery: Holter monitor: EPS: PPM: CXR: Chest CT Scan: Assessment/Plan 1. Atrial fibrillation: The patient developed atrial fibrillation most likely as a result of his acute illness, with rapid ventricular response refractory to IV amiodarone. In addition the patient has a significant left-sided pneumonia, which is being treated with broad-spectrum antibiotics. Unfortunately his respiratory situation is deteriorating, and have recommended with Dr. Bolivar to electively intubate the patient prior to acute respiratory distress despite BiPAP therapy for the better part of 12 hours. I talked this over with the patient, and he is agreeable to this. In the meantime I recommend continuing IV amiodarone drip, and hopefully his heart rate will slow down once his respiratory status has been stabilized and his work of breathing has been reduced. Would recommend continuing IV amiodarone for at least 48 hours total and switching him to p.o. amiodarone going forward. Patient is already on Eliquis therapy for paroxysmal atrial fibrillation and would recommend continuing this. 2. Aortic valve replacement: Patient has a history of bioprosthetic aortic valve replacement and his recent echocardiogram was outlined above. I recommend a repeat echocardiogram to evaluate his bioprosthetic valve to ensure that he does not have any kind of bacterial endocarditis. If there is any suspicion for endocarditis, the patient may require a transesophageal echocardiogram for better evaluation and may require long-term IV antibiotics going forward. Blood cultures are pending, thus far have been negative. His white count is actually within normal limits so it is doubtful the patient has endocarditis. 3. Coronary artery disease: Patient is a history of coronary disease status post three-vessel bypass surgery. The patient's atrial fibrillation demonstrates anterolateral ST segment depression which may be LVH with repolarization abnormality. Recommend troponins x3, and if they are markedly abnormal, he may require a diagnostic coronary angiogram once his infection has been better controlled. Again 2D with Doppler is pending to evaluate LV function and bioprosthetic aortic valve. 4. Hyperlipidemia: Continue statin based medications such as rosuvastatin. 5. Discussed with Dr. Boliavr. Thank you very much for the opportunity to participate in the cardiac care of your patient. Consultation time took place between 745 and 8:20 AM. Code Visit Inpatient E&M: 43367 Init Hosp L3
[2019-07-17] MEDS: Phenylephrine 10 MG/ML Vial IV (09:10)
[2019-07-17 09:41] LABS: Allen Test POS; Base Excess -11 mmol/L (-2 to +2); Bicarbonate 15.3 mmol/L (22-26); Blood Gas Specimen Type ART; FI02 100; Mode A-C; O2 Delivery Device Vent; PEEP 5; PO2 63 mmHG (75-100); RR 12; SITE R Brachial; SO2 91 % (95-99); Time Given 934; Total Carbon Dioxide 16 mmol/L; Vt 500; pCO2 29.1 mmHg (35-45); pH 7.33 (7.35-7.45)
--- NOTE | 2019-07-17 10:08 | CASEMGMT ---
RN CM Assessment Presentation: AFIB, sepsis Intro role of CM and purpose of RN CM assessment to patient's . Pt is intubated, unable to participate in assessment @ this time. Demographics, PCP and Pharmacy verified. 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 Per , he has been independent at home, no DME use. PCP: Dr. Adams Specialists: Dr. Bolivar, Dr. Lyles Preferred Pharmacy: [facility] Insurance: [employer] Prescription Benefit: yes LNOK: Lilian Mckeon, Living Arrangements: Lives in one story home, 3 steps into home from front entrance. No assistance had been needed with ADL's. Transportation: [facility] transportation or [employer] [facility] DME: no dme use @ home, pt's states they do have walker if needed. HHC/SNF: none Patient DC goals: Home DC PLAN: undetermined. CM will continue to follow and assist if dc needs arise. Fátima CATN RN ACM
[2019-07-17] MEDS: Chlorhexidine 15 ML PO ×2 (12:00→22:16)
--- NOTE | 2019-07-17 12:34 | RAD_ITS ---
STUDY: X-RAY CHEST REASON FOR EXAM: Male, 79 years old. picc line placement TECHNIQUE: Single AP portable view of the chest. COMPARISON: Comparison is made with prior examination done earlier today at 8:46 AM. FINDINGS: A right-sided PICC line catheter has been placed. The tip is at the junction of the superior vena cava and right atrium. An endotracheal tube is in situ. It should be pulled back approximately 2 cm. The orogastric tube is unchanged. Stable appearance of the infiltration in the left lung as well as at the right base. Blunting of both costophrenic angles. RAD/CXR for Line Placement IMPRESSION: A right-sided PICC line catheter has been placed. The tip is at the junction of the superior vena cava and right atrium. The tip of the endotracheal tube should be withdrawn approximately 2 cm. Stable appearance of both lungs. Electronically Signed: Behzad Jimenez, at 13:16 EST , Service support ,
--- NOTE | 2019-07-17 13:32 | PCM.RX.CS ---
Consult Pharmacy has been consulted to manage selected antiobiotic: Vancomycin Type of Consult: New start Suspected Infection: Sepsis, Pneumonia Prior Doses of Antibiotics Received/Current Regimen: Vancomycin 2gm iv x 1 on 07.17.19. Labs: Sodium 136 mmol/L (136-145) 07/17/19 04:15 Potassium 4.1 mmol/L (3.5-5.1) 07/17/19 04:15 Chloride 107 mmol/L (98-107) 07/17/19 04:15 Carbon Dioxide 19.0 mmol/L (21.0-32.0) L 07/17/19 04:15 Anion Gap 10 (5-15) 07/17/19 04:15 BUN 26 mg/dL (7-18) H 07/17/19 04:15 Creatinine 1.60 mg/dL (0.70-1.30) H 07/17/19 04:15 Est GFR (MDRD) Af Amer 54 mL/min (>60) L 07/17/19 04:15 Est GFR (MDRD) Non-Af 45 mL/min (>60) L 07/17/19 04:15 BUN/Creatinine Ratio 16.2 RATIO (10-20) 07/17/19 04:15 Glucose 119 mg/dL (74-106) H 07/17/19 04:15 Microbiology: Microbiology 07/16/19 21:00 Sputum, Expectorated/Coughed Gram Stain - Final 07/17/19 09:00 Sputum, Induced/Lukens Gram Stain - Final 07/16/19 16:30 Urine Catheter - Catheter Streptococcus pneumoniae Antigen (M - Final 07/16/19 16:30 Urine Catheter - Catheter Legionella Antigen - Final 07/16/19 11:50 Mucosa - Nose Respiratory Panel (PCR) - Final Weight used for dosin kg Estimated Creatinine Clearance: ~36ml/min Goal Trough: 15-20 mcg/mL Pharmacy Plan for Drug Dosing: Will begin 1gm iv q24h based on protocol parameters. Trough level ordered for 07.19.19 before 3rd dose of therapy. Pharmacy Service will continue to monitor and adjust dosing as required. Follow-Up Labs: Trough Vancomycin - 07.19.19 @1330 before 1400 dose
[2019-07-17] MEDS: fentaNYL drip 100 ML 15 MCG IV ×2 (14:00→20:04)
[2019-07-17] MEDS: Propofol 10MG/Ml 1,000 MG/100 ML Bottle 11.3 MG CONT INF ×2 (14:00→22:16)
[2019-07-17 14:08] LABS: Pathologist Review Reviewed
[2019-07-17] MEDS: Aspirin 81 MG TAB.CHEW GT (15:29)
[2019-07-17] MEDS: APIXABAN 5 MG TABLET GT ×2 (15:30→22:21)
[2019-07-17] MEDS: Famotidine 20 MG Tablet GT (15:31)
[2019-07-17] MEDS: guaiFENesin 10 ML UDC (200MG/10ML) 60 ML GT ×2 (15:32→22:24)
[2019-07-17 16:24] LABS: CPK Total, Creatine Kinase 530 U/L (39-308); Triglycerides 196 mg/dL
[2019-07-17 20:06] LABS: Bedside Glucose 105 mg/dL (70-110)
[2019-07-18] VITALS (45 sets, daily range): BP systolic 81–116; BP diastolic 48–94; PULSE 95–152; RESP 12–20; TEMP 37.3–37.8; O2SAT 89–98
[2019-07-18 00:35] LABS: Bedside Glucose 87 mg/dL (70-110)
[2019-07-18] MEDS: Ipratropium/Albuterol Sulfate 3 ML AMPUL.NEB INHALATION ×3 (03:15→10:46)
[2019-07-18] MEDS: fentaNYL drip 100 ML 12.5 MCG IV ×3 (03:36→21:58)
[2019-07-18 04:53] LABS: Absolute Lymphocyte Count 0.78 X10^3/uL (0.83-4.51); Absolute Neutrophil Count 7.8 X10^3/uL (2.0-7.7); Basophil# 0.03 X10^3/uL; Basophil% 0.3 % (0-1); Hematocrit 37.2 % (40-54); Hemoglobin 11.9 g/dL (13.0-16.5); Lymphocyte # 0.78 X10^3/ul (4.0); Lymphocyte % 8.6 % (19-41); Mean Corpuscular Hgb 31.2 pg (27.0-32.0); Mean Corpuscular Volume 97.4 fL (80-94); Mean Platelet Vol. 9.8 fl (6.2-12.0); Monocyte# 0.24 X10^3/uL; Monocyte% 2.7 % (0-10); NRBC Flagged by Analyzer 0 % (0-5); Neutrophil # 7.82 X10^3/uL (2.7-7.7); Neutrophil % 86.6 % (47-70); POSITIVE MORPHOLOGY YES; Platelet Count 152 K/mm3 (150-450); RBC Distribution Width CV 13.8 % (11.6-14.6); RBC Distribution Width SD 49.5 fl (35.1-43.9); Red Blood Count 3.82 M/mm3 (4.6-6.2)
[2019-07-18 05:10] LABS: Anion Gap 6 (5-15); BUN 42 mg/dL (7-18); BUN/Creat Ratio 16.2 RATIO (10-20); Calcium,Total 7.8 mg/dL (8.5-10.1); Chloride 109 mmol/L (98-107); EST Glomerular Filtration Rate 26 mL/min (>60); Est Glom Filt Rate - Afr Amer 31 mL/min (>60); Estimated Creatinine Clearance 21.89 ml/min; Glucose 96 mg/dL (74-106); Potassium 4.8 mmol/L (3.5-5.1); Sodium Level 136 mmol/L (136-145)
[2019-07-18 05:22] LABS: Differential Comment SCANNED; Differential Indicated SCAN CRITERIA MET
[2019-07-18 06:31] LABS: Bedside Glucose 104 mg/dL (70-110)
--- NOTE | 2019-07-18 06:55 | PN_ITS ---
Subjective: The patient was seen and examined at the bedside this morning. Events from the last 24 hours have been reviewed. The patient continues to have low-grade fevers and did have a T-max overnight of 100.4 ?F. The patient's heart rate remains uncontrolled and is currently in the 130s. The patient remains on Levophed at 7 mcg/min to maintain hemodynamic stability. He currently has an FiO2 requirement of 50% and PEEP of 8. He is sedated on propofol at 10 and fentanyl at 125. The patient is currently documented to be overall net +6.4 L for the hospital admission. Objective: The patient's most recent lab work, culture data and imaging studies have all been personally reviewed. Surface echocardiogram revealed moderate concentric LVH with an ejection fraction of 65%. Right ventricular systolic pressure was estimated to be 40 mmHg. Strep and urine Legionella antigens were negative. Blood, urine and sputum cultures are pending. General: - - Intubated, sedated and mechanically ventilated. HEENT: Atraumatic, PERRLA, Normocephalic Oral: No Gingival or Mucosal Lesions/ Ulcerations, - - Endotracheal and OG tubes currently in place Neck: Supple, No Nodes, Trachea Midline Lungs: No rhonchi, No wheeze, No rales, Diminished Cardiovascular: Normal S1, Normal S2, Irregular Rate, Murmur, Tachycardic Abdomen: Bowel Sounds Present, Soft, Distended Extremities: No clubbing, No cyanosis, No edema Skin: No breakdown Musculoskeletal: No Tenderness to Palpation of Joints or Extremities Lymphatic: No Cervical, Supraclavicular, or Inguinal Adenopathy Neurological: Neuro grossly intact, - - Currently sedated. Vital Signs Temp Pulse Resp BP Pulse Ox 99.9 F H 132 H 12 92/58 L 93 07/18/19 05:00 07/18/19 06:25 07/18/19 05:00 07/18/19 06:25 07/18/19 05:00 Oxygen Flow Rate (L/min) 50 Oxygen Delivery Method Mechanical Ventilator Weight: 169 lb 15.622 oz Body Mass Index (BMI) 25.4 Intake and Output for Last 24 Hours 07/16/19 07/17/19 07/18/19 23:59 23:59 23:59 Intake Total 2753 / 3728.38 4627.18 / 4756.83 552.86 / 552.86 Output Total 300 / 300 550 / 650 650 / 650 Balance 2453 / 3428.38 4077.18 / 4106.83 -97.14 / -97.14 Labs (Last 48 Hours) 07/16/19 07/16/19 07/16/19 11:14 11:15 11:15 WBC 5.7 RBC 4.18 L Hgb 13.2 Hct 39.4 L MCV 94.3 H MCH 31.6 MCHC 33.5 RDW Std Deviation 45.1 H RDW Coeff of Jeanne 13.0 Plt Count 185 MPV 9.4 Immature Gran % (Auto) GEOPHYSICAL LABORATORY DIRECTOR Neut % (Auto) GEOPHYSICAL LABORATORY DIRECTOR Lymph % (Auto) GEOPHYSICAL LABORATORY DIRECTOR [place] % (Auto) GEOPHYSICAL LABORATORY DIRECTOR Eos % (Auto) GEOPHYSICAL LABORATORY DIRECTOR Baso % (Auto) GEOPHYSICAL LABORATORY DIRECTOR Absolute Neuts (auto) 3.6 Absolute Lymphs (auto) 0.74 L Total Counted 100 Neutrophils % (Manual) 52 Band Neutrophils % 11 H Lymphocytes % (Manual) 13 L Monocytes % (Manual) 6 Metamyelocytes % 18 H Nucleated RBC % 0 Differential Comment Diff Path Review Reviewed Toxic Granulation RARE Dohle Bodies RARE Platelet Estimate ADEQUATE RBC Morphology NORM C+C PT 21.2 H INR 1.8 APTT 37.2 H Specimen Type Sample Site pH Bicarbonate Actual POC Total CO2 Base Excess O2 Saturation O2 % ABG pCO2 ABG pO2 Arturo Test Respiration Rate O2 Delivery Device Minute Volume Vent Mode Tidal Volume POC PEEP EPAP IPAP Blood Gas Notified Whom Blood Gas Notified Time Sodium 134 L Potassium 4.2 Chloride 101 Carbon Dioxide 24.0 Anion Gap 9 BUN 27 H Creatinine 1.83 H Estim Creat Clear Calc 31.10 Est GFR (MDRD) Af Amer 46 L Est GFR (MDRD) Non-Af 38 L BUN/Creatinine Ratio 14.8 Glucose 143 H Hemoglobin A1c Lactic Acid Calcium 8.8 Phosphorus Magnesium Total Bilirubin Direct Bilirubin AST ALT Alkaline Phosphatase Total Creatine Kinase Troponin I 0.034 Total Protein Albumin Globulin Albumin/Globulin Ratio Triglycerides TSH MRSA (PCR) POC Glucose 07/16/19 07/16/19 07/16/19 11:15 11:15 11:15 WBC RBC Hgb Hct MCV MCH MCHC RDW Std Deviation RDW Coeff of Jeanne Plt Count MPV Immature Gran % (Auto) Neut % (Auto) Lymph % (Auto) [place] % (Auto) Eos % (Auto) Baso % (Auto) Absolute Neuts (auto) Absolute Lymphs (auto) Total Counted Neutrophils % (Manual) Band Neutrophils % Lymphocytes % (Manual) Monocytes % (Manual) Metamyelocytes % Nucleated RBC % Differential Comment Diff Path Review Toxic Granulation Dohle Bodies Platelet Estimate RBC Morphology PT INR APTT Specimen Type Sample Site pH Bicarbonate Actual POC Total CO2 Base Excess O2 Saturation O2 % ABG pCO2 ABG pO2 Arturo Test Respiration Rate O2 Delivery Device Minute Volume Vent Mode Tidal Volume POC PEEP EPAP IPAP Blood Gas Notified Whom Blood Gas Notified Time Sodium 134 L Potassium 4.2 Chloride 102 Carbon Dioxide 24.0 Anion Gap 8 BUN 27 H Creatinine 1.85 H Estim Creat Clear Calc 30.77 Est GFR (MDRD) Af Amer 46 L Est GFR (MDRD) Non-Af 38 L BUN/Creatinine Ratio 14.6 Glucose 141 H Hemoglobin A1c Lactic Acid 3.2 H* Calcium 9.0 Phosphorus 2.3 L Magnesium 2.2 Total Bilirubin 1.60 H Direct Bilirubin AST 24 ALT 29 Alkaline Phosphatase 63 Total Creatine Kinase Troponin I Total Protein 7.5 Albumin 3.1 L Globulin 4.4 H Albumin/Globulin Ratio 0.7 L Triglycerides TSH MRSA (PCR) POC Glucose 07/16/19 07/16/19 07/16/19 15:55 15:55 16:30 WBC RBC Hgb Hct MCV MCH MCHC RDW Std Deviation RDW Coeff of Jeanne Plt Count MPV Immature Gran % (Auto) Neut % (Auto) Lymph % (Auto) [place] % (Auto) Eos % (Auto) Baso % (Auto) Absolute Neuts (auto) Absolute Lymphs (auto) Total Counted Neutrophils % (Manual) Band Neutrophils % Lymphocytes % (Manual) Monocytes % (Manual) Metamyelocytes % Nucleated RBC % Differential Comment Diff Path Review Toxic Granulation Dohle Bodies Platelet Estimate RBC Morphology PT 21.3 H INR 1.9 APTT 32.1 Specimen Type Sample Site pH Bicarbonate Actual POC Total CO2 Base Excess O2 Saturation O2 % ABG pCO2 ABG pO2 Arturo Test Respiration Rate O2 Delivery Device Minute Volume Vent Mode Tidal Volume POC PEEP EPAP IPAP Blood Gas Notified Whom Blood Gas Notified Time Sodium Potassium Chloride Carbon Dioxide Anion Gap BUN Creatinine Estim Creat Clear Calc Est GFR (MDRD) Af Amer Est GFR (MDRD) Non-Af BUN/Creatinine Ratio Glucose Hemoglobin A1c Lactic Acid 2.3 H* Calcium Phosphorus Magnesium Total Bilirubin Direct Bilirubin AST ALT Alkaline Phosphatase Total Creatine Kinase Troponin I Total Protein Albumin Globulin Albumin/Globulin Ratio Triglycerides TSH MRSA (PCR) Negative POC Glucose 07/16/19 07/17/19 07/17/19 16:36 04:15 04:15 WBC 4.8 RBC 3.80 L Hgb 12.0 L Hct 35.4 L MCV 93.2 MCH 31.6 MCHC 33.9 RDW Std Deviation 45.8 H RDW Coeff of Jeanne 13.2 Plt Count 146 L MPV 9.3 Immature Gran % (Auto) 1.100 H Neut % (Auto) 89.5 H Lymph % (Auto) 7.1 L [place] % (Auto) 1.9 Eos % (Auto) 0.0 Baso % (Auto) 0.4 Absolute Neuts (auto) 4.3 Absolute Lymphs (auto) 0.34 L Total Counted Neutrophils % (Manual) Band Neutrophils % Lymphocytes % (Manual) Monocytes % (Manual) Metamyelocytes % Nucleated RBC % 0 Differential Comment Diff Path Review Toxic Granulation Dohle Bodies Platelet Estimate RBC Morphology PT INR APTT Specimen Type ART Sample Site R Brachial pH 7.38 Bicarbonate Actual 14.9 L POC Total CO2 16 Base Excess -10 L O2 Saturation 97 O2 % 60 ABG pCO2 25.2 L ABG pO2 88 Arturo Test POS Respiration Rate 12 O2 Delivery Device Bi / C PAP Minute Volume Vent Mode Tidal Volume POC PEEP EPAP 8 IPAP 14 Blood Gas Notified Whom ICU Blood Gas Notified Time 1635 Sodium 136 Potassium 4.1 Chloride 107 Carbon Dioxide 19.0 L Anion Gap 10 BUN 26 H Creatinine 1.60 H Estim Creat Clear Calc 35.57 Est GFR (MDRD) Af Amer 54 L Est GFR (MDRD) Non-Af 45 L BUN/Creatinine Ratio 16.2 Glucose 119 H Hemoglobin A1c Lactic Acid Calcium 7.6 L Phosphorus Magnesium Total Bilirubin 1.10 H Direct Bilirubin 0.51 H AST 26 ALT 25 Alkaline Phosphatase 52 Total Creatine Kinase Troponin I Total Protein 6.1 L Albumin 2.2 L Globulin 3.9 Albumin/Globulin Ratio Triglycerides TSH 0.87 MRSA (PCR) POC Glucose 07/17/19 07/17/19 07/17/19 09:34 10:00 10:00 WBC RBC Hgb Hct MCV MCH MCHC RDW Std Deviation RDW Coeff of Jeanne Plt Count MPV Immature Gran % (Auto) Neut % (Auto) Lymph % (Auto) [place] % (Auto) Eos % (Auto) Baso % (Auto) Absolute Neuts (auto) Absolute Lymphs (auto) Total Counted Neutrophils % (Manual) Band Neutrophils % Lymphocytes % (Manual) Monocytes % (Manual) Metamyelocytes % Nucleated RBC % Differential Comment Diff Path Review Toxic Granulation Dohle Bodies Platelet Estimate RBC Morphology PT INR APTT Specimen Type ART Sample Site R Brachial pH 7.33 L Bicarbonate Actual 15.3 L POC Total CO2 16 Base Excess -11 L O2 Saturation 91 L O2 % 100 ABG pCO2 29.1 L ABG pO2 63 L Arturo Test POS Respiration Rate 12 O2 Delivery Device Vent Minute Volume 12.00 Vent Mode A-C Tidal Volume 500 POC PEEP 5 EPAP IPAP Blood Gas Notified Whom ICU MD Blood Gas Notified Time 934 Sodium Potassium Chloride Carbon Dioxide Anion Gap BUN Creatinine Estim Creat Clear Calc Est GFR (MDRD) Af Amer Est GFR (MDRD) Non-Af BUN/Creatinine Ratio Glucose Hemoglobin A1c Lactic Acid Calcium Phosphorus Magnesium Total Bilirubin Direct Bilirubin AST ALT Alkaline Phosphatase Total Creatine Kinase 530 H Troponin I 0.511 H Total Protein Albumin Globulin Albumin/Globulin Ratio Triglycerides 196 TSH MRSA (PCR) POC Glucose 07/17/19 07/18/19 07/18/19 19:50 00:20 04:45 WBC 9.0 RBC 3.82 L Hgb 11.9 L Hct 37.2 L MCV 97.4 H MCH 31.2 MCHC 32.0 RDW Std Deviation 49.5 H RDW Coeff of Jeanne 13.8 Plt Count 152 MPV 9.8 Immature Gran % (Auto) 1.800 H Neut % (Auto) 86.6 H Lymph % (Auto) 8.6 L [place] % (Auto) 2.7 Eos % (Auto) 0.0 Baso % (Auto) 0.3 Absolute Neuts (auto) 7.8 H Absolute Lymphs (auto) 0.78 L Total Counted Neutrophils % (Manual) Band Neutrophils % Lymphocytes % (Manual) Monocytes % (Manual) Metamyelocytes % Nucleated RBC % 0 Differential Comment SCANNED Diff Path Review Toxic Granulation Dohle Bodies Platelet Estimate RBC Morphology PT INR APTT Specimen Type Sample Site pH Bicarbonate Actual POC Total CO2 Base Excess O2 Saturation O2 % ABG pCO2 ABG pO2 Arturo Test Respiration Rate O2 Delivery Device Minute Volume Vent Mode Tidal Volume POC PEEP EPAP IPAP Blood Gas Notified Whom Blood Gas Notified Time Sodium Potassium Chloride Carbon Dioxide Anion Gap BUN Creatinine Estim Creat Clear Calc Est GFR (MDRD) Af Amer Est GFR (MDRD) Non-Af BUN/Creatinine Ratio Glucose Hemoglobin A1c Lactic Acid Calcium Phosphorus Magnesium Total Bilirubin Direct Bilirubin AST ALT Alkaline Phosphatase Total Creatine Kinase Troponin I Total Protein Albumin Globulin Albumin/Globulin Ratio Triglycerides TSH MRSA (PCR) POC Glucose 105 87 07/18/19 07/18/19 07/18/19 04:45 04:45 06:16 WBC RBC Hgb Hct MCV MCH MCHC RDW Std Deviation RDW Coeff of Jeanne Plt Count MPV Immature Gran % (Auto) Neut % (Auto) Lymph % (Auto) [place] % (Auto) Eos % (Auto) Baso % (Auto) Absolute Neuts (auto) Absolute Lymphs (auto) Total Counted Neutrophils % (Manual) Band Neutrophils % Lymphocytes % (Manual) Monocytes % (Manual) Metamyelocytes % Nucleated RBC % Differential Comment Diff Path Review Toxic Granulation Dohle Bodies Platelet Estimate RBC Morphology PT INR APTT Specimen Type Sample Site pH Bicarbonate Actual POC Total CO2 Base Excess O2 Saturation O2 % ABG pCO2 ABG pO2 Arturo Test Respiration Rate O2 Delivery Device Minute Volume Vent Mode Tidal Volume POC PEEP EPAP IPAP Blood Gas Notified Whom Blood Gas Notified Time Sodium 136 Potassium 4.8 Chloride 109 H Carbon Dioxide 21.0 Anion Gap 6 BUN 42 H Creatinine 2.60 H Estim Creat Clear Calc 21.89 Est GFR (MDRD) Af Amer 31 L Est GFR (MDRD) Non-Af 26 L BUN/Creatinine Ratio 16.2 Glucose 96 Hemoglobin A1c Pending Lactic Acid Calcium 7.8 L Phosphorus Magnesium Total Bilirubin Direct Bilirubin AST ALT Alkaline Phosphatase Total Creatine Kinase Troponin I Total Protein Albumin Globulin Albumin/Globulin Ratio Triglycerides TSH MRSA (PCR) POC Glucose 104 Microbiology 07/16/19 16:30 Urine Catheter - Catheter Urine Culture - Preliminary Culture exhibits no growth. 07/16/19 21:00 Sputum, Expectorated/Coughed Gram Stain - Final 07/17/19 09:00 Sputum, Induced/Lukens Gram Stain - Final 07/16/19 16:30 Urine Catheter - Catheter Streptococcus pneumoniae Antigen (M - Final 07/16/19 16:30 Urine Catheter - Catheter Legionella Antigen - Final 07/16/19 11:50 Mucosa - Nose Respiratory Panel (PCR) - Final Clinical Impression(s) from Imaging Studies Chest X-Ray 07/17/19 06:43 IMPRESSION: Progressive left upper lobe infiltrate. Electronically Signed: Behzad Jimenez, at 8:27 EST , Service support , Chest X-Ray 07/17/19 08:33 IMPRESSION: The tip of the endotracheal tube is at 2.1 cm proximal to the donaldo. The tip of the orogastric tube is in the distal stomach. Stable opacification in the left hemithorax as well as increased markings at the right lung base. Electronically Signed: Behzad Jimenez, at 10:02 EST , Service support , Chest X-Ray 07/17/19 12:34 IMPRESSION: A right-sided PICC line catheter has been placed. The tip is at the junction of the superior vena cava and right atrium. The tip of the endotracheal tube should be withdrawn approximately 2 cm. Stable appearance of both lungs. 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 Continue current supportive measures with invasive mechanical ventilatory support. Continue to wean FiO2 and PEEP to maintain oxygen saturations at or above 90%. 2. Continue broad-spectrum antimicrobials, pending infectious work-up. 3. Continue vasopressor support to maintain a mean arterial pressure at or above 65 mmHg. 4. Continue current sedation regimen. 5. Hold on tube feed initiation today, given distended abdomen. 6. Continue current medical management of atrial fibrillation per cardiology recommendations. 7. Obtain repeat troponin level. Check BNP as well. IMPRESSIONS: 1. Acute hypoxemic respiratory failure secondary to severe community-acquired pneumonia Unfortunately, the patient continued to decompensate clinically despite the use of noninvasive positive pressure ventilatory support. The patient's respiratory status is also complicated by the fact that he is currently in atrial fibr illation with a rapid ventricular rate. The patient did require intubation on the morning of July 17. His antibiotics have been broadened accordingly, pending further infectious work-up. We will plan to wean FiO2 to maintain oxygen saturations at or above 90%. 2. Severe sepsis likely secondary to community-acquired pneumonia Continue current supportive measures including invasive mechanical ventilatory support and broad-spectrum antimicrobial coverage, pending infectious work-up. 3. Distributive shock The patient became hypotensive following intubation and subsequent initiation of sedative medications. I cannot discount the possibility that a component of the patient's hemodynamic instability may also be secondary to his underlying dysrhythmia and elevated ventricular rate. As noted above, we will plan to continue vasopressor support to maintain hemodynamics. 4. Acute kidney injury Likely prerenal in etiology or related to recent hemodynamic instability. Continue current supportive measures as noted above. Continue to monitor urine output. No current indication for renal replacement therapy. 5. Paroxysmal atrial fibrillation with rapid ventricular rate/coronary artery disease status post bypass/aortic valve replacement The patient is currently being medically managed with the assistance of cardiology. Continue amiodarone as ordered. TIME: 42 minutes of critical care time, independent of procedures, was spent ad dressing the patient's acute hypoxemic respiratory failure, severe sepsis secondary to community-acquired pneumonia, acute kidney injury, paroxysmal atrial fibrillation with rapid ventricular rate, review of all data and collaboration with the care team. ([id number]) Code Visit [id number]: [id number] Critical care first hour
[2019-07-18] MEDS: TITRATION PARAMETER CHANGE 1 EACH IV (06:58)
[2019-07-18 07:12] LABS: Hemoglobin A1c 6.3 % (4.2-6.3)
--- NOTE | 2019-07-18 08:02 | PN_ITS ---
Patient Problems: Active and Suspected Problems (Last Reviewed 07/14/19 @ 18:38 by Joan Charles) Severe sepsis (Acute) Community acquired pneumonia (Acute) Reason for Visit: Septic shock on IV Levophed drip: Started yesterday on 07/18. Acute hypoxic respiratory failure, intubated on ventilator Objective: Low-grade fever T-max 100.4 Fahrenheit at 2000 hrs. 07/17. Patient is still tachycardic, heart rate 120s to 130 on IV amiodarone drip. On Levophed drip. Intubated on sedative propofol and fentanyl. Abdomen is distended. Chest x-ray reviewed. OG tube seems acute kink in the fundus of the stomach Vitals/I&O's: Vital Signs Temp Pulse Resp BP Pulse Ox 100.0 F H 134 H 12 91/58 L 96 07/18/19 07:03 07/18/19 07:03 07/18/19 07:03 07/18/19 07:03 07/18/19 07:03 Oxygen Flow Rate (L/min) 50 Oxygen Delivery Method Mechanical Ventilator Weight: 169 lb 15.622 oz Body Mass Index (BMI) 25.4 Intake and Output for Last 24 Hours 07/16/19 07/17/19 07/18/19 23:59 23:59 23:59 Intake Total 2753 / 3728.38 4627.18 / 4756.83 591.59 / 591.59 Output Total 300 / 300 550 / 650 650 / 650 Balance 2453 / 3428.38 4077.18 / 4106.83 -58.41 / -58.41 General: - HEENT: Normocephalic Oral: - - ATN OG tube Neck: - Lungs: - - On vent support, volume control, PEEP of 8 tidal volume 500 mL;50% FiO2. Air entry diminished on left side. Abdomen: Soft, Bowel Sounds Not Present, Distended, - - OG tube shows gastric residue with bloody aspirate Extremities: Edema Musculoskeletal: Arthritic Changes Neurological: - - Sedated Microbiology Past 72 Hours 07/16/19 16:30 Urine Catheter - Catheter Urine Culture - Preliminary Culture exhibits no growth. 07/16/19 21:00 Sputum, Expectorated/Coughed Gram Stain - Final 07/17/19 09:00 Sputum, Induced/Lukens Gram Stain - Final 07/16/19 16:30 Urine Catheter - Catheter Streptococcus pneumoniae Antigen (M - Final 07/16/19 16:30 Urine Catheter - Catheter Legionella Antigen - Final 07/16/19 11:50 Mucosa - Nose Respiratory Panel (PCR) - Final Laboratory Results 07/16/19 11:15: Diff Path Review Reviewed 07/17/19 09:34: Specimen Type ART, Sample Site R Brachial, pH 7.33 L, Bicarbonate Actual 15.3 L, POC Total CO2 16, Base Excess -11 L, O2 Saturation 91 L, O2 % 100, ABG pCO2 29.1 L, ABG pO2 63 L, Arturo Test POS, Respiration Rate 12, O2 Delivery Device Vent, Minute Volume 12.00, Vent Mode A-C, Tidal Volume 500, POC PEEP 5, Blood Gas Notified Whom ICU MD, Blood Gas Notified Time 934 07/17/19 10:00: Troponin I 0.511 H 07/17/19 10:00: Total Creatine Kinase 530 H, Triglycerides 196 07/17/19 19:50: POC Glucose 105 07/18/19 00:20: POC Glucose 87 07/18/19 04:45: WBC 9.0, RBC 3.82 L, Hgb 11.9 L, Hct 37.2 L, MCV 97.4 H, MCH 31.2, MCHC 32.0, RDW Std Deviation 49.5 H, RDW Coeff of Jeanne 13.8, Plt Count 152, MPV 9.8, Immature Gran % (Auto) 1.800 H, Neut % (Auto) 86.6 H, Lymph % (Auto) 8.6 L, [place] % (Auto) 2.7, Eos % (Auto) 0.0, Baso % (Auto) 0.3, Absolute Neuts (auto) 7.8 H, Absolute Lymphs (auto) 0.78 L, Nucleated RBC % 0, Differential Comment SCANNED 07/18/19 04:45: Sodium 136, Potassium 4.8, Chloride 109 H, Carbon Dioxide 21.0, Anion Gap 6, BUN 42 H, Creatinine 2.60 H, Estim Creat Clear Calc 21.89, Est GFR (MDRD) Af Amer 31 L, Est GFR (MDRD) Non-Af 26 L, BUN/Creatinine Ratio 16.2, Glucose 96, Calcium 7.8 L 07/18/19 04:45: Hemoglobin A1c 6.3 07/18/19 04:45: Troponin I Pending 07/18/19 04:45: B-Natriuretic Peptide Pending 07/18/19 06:16: POC Glucose 104 Current Medications Acetaminophen (Tylenol Liquid) 650 mg GT Q6H PRN PRN PRN Reason: Pain or Fever Albuterol/Ipratropium (Duoneb) 3 ml INHALATION Q4H.RT [facility] Last Admin: 07/18/19 06:50 Dose: 3 ml Documented by: Apixaban (Eliquis) 5 mg GT BID [facility] Last Admin: 07/17/19 22:21 Dose: 5 mg Documented by: Aspirin (Aspirin, Baby) 81 mg GT DAILY@0800 [facility] Last Admin: 07/17/19 15:29 Dose: 81 mg Documented by: Chlorhexidine Gluconate () 15 ml PO BID [facility] Last Admin: 07/17/19 22:16 Dose: 15 ml Documented by: Glucagon () 1 mg IM .X1 PRN PRN Reason: Hypoglycemia Guaifenesin (Robitussin) 60 ml GT BID [facility] Last Admin: 07/17/19 22:24 Dose: 60 ml Documented by: Dextrose (Dextrose 10%-Water) 250 mls @ 999 mls/hr IV .Q16M PRN; Protocol PRN Reason: HYPOGLYCEMIA Piperacillin Sod/Tazobactam (Sod 3.375 gm/ Sodium Chloride) 50 mls @ 12.5 mls/hr IV Q8 [facility] Last Infusion: 07/18/19 07:03 Dose: 12.5 mls/hr Documented by: Vancomycin IV Pharmacy to Dose (1 ea/ Sodium Chloride) 500 mls @ 250 mls/hr IV PRN PRN; Protocol PRN Reason: Rx to Dose Norepinephrine Bitartrate 8 mg (/ Sodium Chloride) 250 mls @ 9.375 mls/hr CONT INF .[id number] [facility]; Protocol Last Titration: 07/18/19 07:03 Dose: 7 mcg/min, 13.1 mls/hr Documented by: Propofol (Diprivan) 1,000 mg in 100 mls @ 4.626 mls/hr CONT INF .Q12H [facility]; Protocol Last Titration: 07/18/19 07:03 Dose: 10 mcg/kg/min, 4.6 mls/hr Documented by: Fentanyl () 100 mls @ 15 mls/hr IV UD [facility]; Protocol Last Titration: 07/18/19 07:03 Dose: 125 mcg/hr, 12.5 mls/hr Documented by: Vancomycin HCl (Vancomycin) 1,000 mg in 200 mls @ 200 mls/hr IV Q24H [facility] Amiodarone HCl 360 mg/ (Dextrose) 200 mls @ 16.667 mls/hr CONT INF .Q12H [facility] Last Infusion: 07/18/19 07:03 Dose: 0.5 mg/min, 16.7 mls/hr Documented by: Pantoprazole Sodium 40 mg/ (Sodium Chloride) 110 mls @ 330 mls/hr IV Q12 [facility] Insulin Human Lispro (Humalog Kwikpen (Bkc)) 0 unit SC Q6 [facility]; Protocol Last Admin: 07/18/19 06:17 Dose: Not Given Documented by: Potassium Chloride (Potassium Chl Soln) 10 meq GT DAILYCM [facility] Last Admin: 07/17/19 15:31 Dose: 10 meq Documented by: Rosuvastatin Calcium (Crestor) 10 mg GT QHS [facility] Last Admin: 07/17/19 22:21 Dose: 10 mg Documented by: Sodium Chloride () 10 - 40 ml IV UD PRN PRN Reason: SALINE FLUSH Last Admin: 07/17/19 02:50 Dose: 20 ml Documented by: STROKE Vital Signs/Narrative: Vital Signs Temp Pulse Resp BP BP Pulse Ox 07/18/19 07:03 100.0 F H 134 H 12 91/58 L 96 07/18/19 06:50 143 H 12 92 07/18/19 06:25 132 H 92/58 L 07/18/19 06:00 100.0 F H 134 H 12 93/48 L 95 07/18/19 05:00 99.9 F H 145 H 12 81/63 L 93 07/18/19 04:45 99.8 F H 134 H 15 91/63 91 07/18/19 04:30 99.8 F H 132 H 14 103/66 91 Medical Necessity - Tobacco Use Smoking Status: Former smoker - About 5 to 10 years states less than a pack per day Tobacco Use: Cigarettes, Cigars Assessment/Plan All Active Problems (Last Reviewed 07/14/19 @ 18:38 by Joan A Araceli) Severe sepsis (Acute) Community acquired pneumonia (Acute) 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) Atelectasis (Acute) 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) MCC (current) use of anticoagulants (Acute) Atrial fibrillation (Acute) Non-rheumatic aortic stenosis (Resolved) The patient is a 79 year old M with history of coronary artery disease status post CABG three-vessel, aortic stenosis status post AVR in April 2018, paroxysmal A. fib was sent to urgent care from Dr. Lyles office after he was found short of breath and hypoxic. From urgent care patient was sent to ER. Patient was not on oxygen at home In ED, patient was found hypoxic, 88% on room air, tachypneic respiratory 24, 93% on 3 L oxygen. During conversation and exam, he became more hypoxic and tachypneic, respiratory 35/min and 92% oxygen requirement 5 L. Chest x-ray showed large area of consolidation in the left upper lobe and lingular lobe same superior segment of left lower lobe. While in ER, patient went into A. fib with RVR, on monitor heart rate 155/min. EKG was done shows A. fib with RVR at 60/min 1. Septic shock (tachycardia, tachypnea, leukocytosis, bandemia and lactic acidosis, 3.2, coagulopathy INR 1.8 total bili 1.6,) and acute hypoxic respiratory failure, present on admission secondary to left upper lobe/lingular and superior segment of left lower lobe, multilobar community-acquired pneumonia: Patient is being admitted in ICU. Stone Gluer consulted and discussed. IV fluid normal saline 30 mils per KG in first 4 hours and then maintenance fluid. Currently patient is normotensive. Pneumonia work-up including blood cultures x2, sputum culture, urinary antigens, MRSA nasal screen and respiratory panel. UA with urine culture also ordered. Started on Levaquin 750 mg IV daily. Patient did not any recent antibiotic. 07/17/2019: Overall patient respiratory status deteriorated requiring BiPAP sinc e evening. Patient is intubated. Earlier CODE STATUS was discussed by goldsmith apprentice and the patient and family agreed for full code. Vent support. Urinary antigens are negative. Blood cultures x2 and sputum culture pending. Respiratory panel negative. Antibiotic is brought in to vancomycin and Zosyn. Levaquin discontinued. 07/18: ABG 7.3 10/24/63/16 on 100% FiO2/500/12/5. Vent parameters currently on 50% FiO2/500/12/8 patient started on Levophed drip on 07/17. right arm PICC line. ET and OG tube. upper GI bleed with mild acute anemia secondary to blood loss/hemodilution: Coffee grounds/bloody aspirate from OG tube. On PPI every 12. H&H dropped from 13.2-11.9. Monitor H&H. Will DC baby aspirin and continue Eliquis. Patient has positive fluid balance of about 6.5 L 2. A. fib with RVR with history of tachybradycardia syndrome: Patient has history of paroxysmal A. fib and had postoperative A. fib after CABG. On metoprolol 50 mg twice daily. Consult cardiology. Eliquis 5 mg twice daily. Metoprolol 5 mg IV one dose ordered to see the response of tachycardia. Patient might drop blood pressure on Cardizem. Patient is not on anticoagulant as per home medication 07/17: Patient remained in and out of A. fib. On Eliquis. Started on amiodarone drip after 150 mg IV bolus by tax services specialist. Current heart rate in 111. 07/18: Patient is still tachycardic but rate is better. 3. Acute kidney injury most likely prerenal with sepsis/ATN: Patient baseline creatinine is unknown, last one 1.2 in August 2013. Admitted with BUN/creatinine 27/1.83. Patient urine output has been 0.17 mL/kg/h. Total 550 mL charted since admission. Positive fluid balance about 4 L. Patient is getting Barkley catheterization. Monitor intake and output. Electrolytes are fairly normal limit except bicarb 19, anion gap 10. CO2 was 24 yesterday 07/18: Urine output 0.1 4 mL/kg/h total 250 mL urine, gastric drainage 400 mL I&O 590/650. BUN 42. Creatinine went up from 1.83-2.6. 4. Coronary artery disease status post CABG x3, aortic stenosis status post aortic valve replacement in April 2018: Recent echo on 07/03/2019 reported as EF 65% with stage I diastolic dysfunction. Moderate concentric LVH. Mildly dilated RV with normal systolic function. LA moderately enlarged. Right atrium moderately enlarged. Mild diffuse mitral valve thickening with trivial MR. Mild TR, RVSP 30 mmHg. Stable appearing bioprosthetic aortic valve apparatus. First EKG in the ER normal sinus rhythm at [address]-T changes Home cardiac medications metoprolol rosuvastatin continued. Lasix held. 4. Other comorbidities include hypertension, dyslipidemia: Home medication reconciliation done. Code Visit Inpatient E&M: 31381 Subs Hosp L3
[2019-07-18 08:20] LABS: BNP,B-Type NATRIURETIC PEPTIDE 534.1 pg/mL (0-100)
--- NOTE | 2019-07-18 08:24 | RAD_ITS ---
STUDY: X-RAY - ABDOMEN/PELVIS REASON FOR EXAM: Male, 79 years old. OG tube placement TECHNIQUE: Two AP supine views of the abdomen and pelvis. COMPARISON: None. FINDINGS: Lung parenchyma demonstrates scattered patchy airspace disease overlying the left upper and left lower lobe which is mildly reduced compared to previous exam. NG tube tip overlies the distal stomach. Small layering right effusion is present. There is an unremarkable bowel gas pattern. There is no demonstrated free abdominal air. The visualized liver, spleen and kidneys are grossly normal in size and morphology. Normal soft tissue structures. Normal visualized osseous structures. RAD/Abdomen Single View (Portable) IMPRESSION: 1. Mildly reduced patchy airspace disease of the left lung. Small layering right effusion. 2. NG tube tip overlying the distal stomach. Otherwise no evidence of definitive bowel dilatation or air-fluid levels. Electronically Signed: Nader Rodney DO at 9:30 EST , Service support ,
[2019-07-18 09:08] LABS: AST(SGOT) 41 U/L (15-37); Alanine Aminotransfer ALT/SGPT 27 U/L (16-61); Alkaline Phosphatase 58 U/L (45-117); Bilirubin, Direct 0.79 mg/dL (0.00-0.30); Globulin 4.2 g/dL (2.2-4.2); Protein, Total 6.2 g/dL (6.4-8.2)
[2019-07-18] MEDS: Chlorhexidine 15 ML PO ×2 (10:14→19:41)
[2019-07-18] MEDS: APIXABAN 5 MG TABLET GT ×2 (10:15→21:13)
[2019-07-18] MEDS: guaiFENesin 10 ML UDC (200MG/10ML) 60 ML GT ×2 (10:15→21:12)
[2019-07-18] MEDS: CHLORHEXIDINE GLUC 2% CLOTH 1 EACH TOWELETTE TOPICAL (10:27)
[2019-07-18] MEDS: Digoxin 250 MCG/ML Ampul 500 MCG IV (11:08)
[2019-07-18] MEDS: 0.9% Saline Lock 10 ML Syringe IV (11:10)
[2019-07-18 12:11] LABS: Bedside Glucose 98 mg/dL (70-110)
--- NOTE | 2019-07-18 12:58 | PCM.PN.CARD ---
Subjectve: 79-year-old white male with septic shock. At the moment patient is intubated for respiratory failure and pneumonia. Cardiac history include aortic valve replacement and CABG for triple-vessel coronary artery disease 1 year ago with bioprosthetic valve. Repeat echo showed normal ejection fraction. Patient has a stage III renal insufficiency. At the moment patient has had atrial fibrillation with fast ventricular rate at 130/min despite IV amiodarone drip. Blood pressure is on the low side of normal with systolic blood pressure around 98 mm. At the moment patient is getting Xarelto through the NG tube Objective: Vital Signs Temp Pulse Resp BP Pulse Ox 99.8 F H 135 H 12 111/55 L 95 07/18/19 11:00 07/18/19 11:08 07/18/19 11:00 07/18/19 11:08 07/18/19 11:00 Oxygen Flow Rate (L/min) 50 Oxygen Delivery Method Mechanical Ventilator Weight: 169 lb 15.622 oz Body Mass Index (BMI) 25.4 Intake and Output for Last 24 Hours 07/16/19 07/17/19 07/18/19 23:59 23:59 23:59 Intake Total 2753 / 3728.38 4627.18 / 4756.83 911.31 / 911.31 Output Total 300 / 300 550 / 650 650 / 650 Balance 2453 / 3428.38 4077.18 / 4106.83 261.31 / 261.31 General: - - Intubated Lungs: - - Intubated with decreased air entry Cardiovascular: Irregular Rhythm - Fast ventricular rate, heart sounds distant, no gross murmur Abdomen: Hypoactive Bowel Sounds, Distended Skin: - - Diaphoretic Psych/Mental Status: - - Sedated and intubated 07/17/19 10:00: Triglycerides 196 07/18/19 04:45: WBC 9.0, RBC 3.82 L, Hgb 11.9 L, Hct 37.2 L, MCV 97.4 H, MCH 31.2, MCHC 32.0, Plt Count 152, MPV 9.8, Immature Gran % (Auto) 1.800 H, Neut % (Auto) 86.6 H, Lymph % (Auto) 8.6 L, [place] % (Auto) 2.7, Eos % (Auto) 0.0, Baso % (Auto) 0.3, Absolute Neuts (auto) 7.8 H, Nucleated RBC % 0 07/18/19 04:45: Sodium 136, Potassium 4.8, Chloride 109 H, Carbon Dioxide 21.0, Anion Gap 6, BUN 42 H, Creatinine 2.60 H, Est GFR (MDRD) Af Amer 31 L, Est GFR (MDRD) Non-Af 26 L, BUN/Creatinine Ratio 16.2, Glucose 96, Calcium 7.8 L 07/18/19 04:45: Hemoglobin A1c 6.3 07/18/19 04:45: Troponin I 1.030 H* 07/18/19 04:45: B-Natriuretic Peptide 534.1 H 07/18/19 04:45: Total Bilirubin 1.10 H, Direct Bilirubin 0.79 H Rhythm: EKG: ECHO: Stress Test: Cardiac Cath: PCI: CT Surgery: Holter monitor: EPS: PPM: CXR: Chest CT Scan: Medical Necessity - Tobacco Use Smoking Status: Former smoker - About 5 to 10 years states less than a pack per day Tobacco Use: Cigarettes, Cigars Assessment/Plan #1 septic shock #2 atrial fibrillation with fast ventricular rate with elevated troponin probably secondary to type II myocardial infarct. Echocardiogram showed normal ejection fraction and wall motion #3 stage III renal insufficiency oliguric #4 bioprosthetic valve for bicuspid valve and 3 grafts bypass 1 year ago Plan: Blood pressures on the low side of normal, heart rate is very fast, patient is oliguric, I would recommend digoxin loading to slow the heart rate down. Because of the renal failure, if this is not improving, will suggest [place]-Kristin insertion to determined the fluid status. If after loading with digoxin, the heart rate still fast, consider using ivabradine through the NG tube, sometimes it will work to slow the ventricular rate. Continue to monitor urine output electrolytes
[2019-07-18] MEDS: Propofol 10MG/Ml 1,000 MG/100 ML Bottle 4.6 MG CONT INF (13:38)
[2019-07-18] MEDS: Ipratropium 0.5 MG/2.5 ML SOLUTION INHALATION ×3 (15:15→22:25)
--- NOTE | 2019-07-18 15:48 | PCM.RX.CS ---
Consult Pharmacy has been consulted to manage selected antiobiotic: Vancomycin Type of Consult: Follow-up Suspected Infection: Sepsis, Pneumonia Prior Doses of Antibiotics Received/Current Regimen: Current regimen is 1000mg IV q24h after the patient initially received 2000mg IV x1 yesterday. Labs: Sodium 136 mmol/L (136-145) 07/18/19 04:45 Potassium 4.8 mmol/L (3.5-5.1) 07/18/19 04:45 Chloride 109 mmol/L (98-107) H 07/18/19 04:45 Carbon Dioxide 21.0 mmol/L (21.0-32.0) 07/18/19 04:45 Anion Gap 6 (5-15) 07/18/19 04:45 BUN 42 mg/dL (7-18) H 07/18/19 04:45 Creatinine 2.60 mg/dL (0.70-1.30) H 07/18/19 04:45 Est GFR (MDRD) Af Amer 31 mL/min (>60) L 07/18/19 04:45 Est GFR (MDRD) Non-Af 26 mL/min (>60) L 07/18/19 04:45 BUN/Creatinine Ratio 16.2 RATIO (10-20) 07/18/19 04:45 Glucose 96 mg/dL (74-106) 07/18/19 04:45 Vancomycin Trough 15.0 ug/mL (5.0-15.0) 07/18/19 13:55 Microbiology: Microbiology 07/17/19 15:15 Urine Catheter - [place] Urine Culture - Preliminary Culture exhibits no growth. 07/16/19 21:00 Sputum, Expectorated/Coughed Gram Stain - Final 07/16/19 21:00 Sputum, Expectorated/Coughed Respiratory Culture - Preliminary Alpha Hemolytic Streptococcus 07/16/19 16:30 Urine Catheter - Catheter Urine Culture - Preliminary Culture exhibits no growth. 07/17/19 09:00 Sputum, Induced/Lukens Gram Stain - Final 07/16/19 16:30 Urine Catheter - Catheter Streptococcus pneumoniae Antigen (M - Final 07/16/19 16:30 Urine Catheter - Catheter Legionella Antigen - Final 07/16/19 11:50 Mucosa - Nose Respiratory Panel (PCR) - Final Weight used for dosin.1 kg Estimated Creatinine Clearance: 21.9ml/min Goal Trough: 15-20 mcg/mL Pharmacy Plan for Drug Dosing: The patient's SCr jumped up to 2.6 today from 1.6 yesterday. Because of this acute decrease in renal function, the current vancomycin regimen was temporaily put on hold and a random level was taken to assess if current dosing was appropriate. This level came back as 15.0 (drawn 24 hours after the initial dose), which is within the trough goal range. Plan to restart the current regimen of 1000mg IV q24h. A repeat vancomycin level will again be taken before tomorrow's dose in light of the patient's decrease in renal function. Pharmacy Service will continue to monitor and adjust dosing as required. Follow-Up Labs: Trough Vancomycin Labs to be done on [date and time ordered]: 07/19/19 30 min prior to the dose
[2019-07-18 17:05] LABS: Hematocrit 36.2 % (40-54); Hemoglobin 11.7 g/dL (13.0-16.5)
[2019-07-18 18:16] LABS: Bedside Glucose 103 mg/dL (70-110)
[2019-07-18] MEDS: Vancomycin IV 1,000 MG/200 ML BAG 200 MG IV (18:16)
[2019-07-19] VITALS (45 sets, daily range): BP systolic 84–143; BP diastolic 48–80; PULSE 74–114; RESP 12–20; TEMP 35.8–37.7; O2SAT 80–98
[2019-07-19] MEDS: 0.9% Saline Lock 10 ML Syringe IV ×2 (00:10→05:11)
[2019-07-19 00:11] LABS: Bedside Glucose 97 mg/dL (70-110)
[2019-07-19 00:12] LABS: Hematocrit 33.1 % (40-54); Hemoglobin 10.6 g/dL (13.0-16.5)
[2019-07-19] MEDS: CHLORHEXIDINE GLUC 2% CLOTH 1 EACH TOWELETTE TOPICAL (00:53)
[2019-07-19] MEDS: Ipratropium 0.5 MG/2.5 ML SOLUTION INHALATION ×6 (03:21→23:13)
[2019-07-19 04:24] LABS: Absolute Lymphocyte Count 0.49 X10^3/uL (0.83-4.51); Absolute Neutrophil Count 9.1 X10^3/uL (2.0-7.7); Basophil# 0.03 X10^3/uL; Basophil% 0.3 % (0-1); Eosinophil# 0.01 X10^3/uL; Eosinophils% 0.1 % (0-5); Hematocrit 34.5 % (40-54); Hemoglobin 10.8 g/dL (13.0-16.5); Lymphocyte # 0.49 X10^3/ul (4.0); Lymphocyte % 4.7 % (19-41); Mean Corp Hgb Conc 31.3 g/dL (32-36); Mean Corpuscular Hgb 30.6 pg (27.0-32.0); Mean Corpuscular Volume 97.7 fL (80-94); Mean Platelet Vol. 9.6 fl (6.2-12.0); Monocyte# 0.39 X10^3/uL; Monocyte% 3.8 % (0-10); NRBC Flagged by Analyzer 0 % (0-5); Neutrophil # 9.13 X10^3/uL (2.7-7.7); Neutrophil % 88.3 % (47-70); POSITIVE DIFFERENTIAL YES; POSITIVE MORPHOLOGY YES; Platelet Count 138 K/mm3 (150-450); RBC Distribution Width CV 14.2 % (11.6-14.6); RBC Distribution Width SD 51.4 fl (35.1-43.9); Red Blood Count 3.53 M/mm3 (4.6-6.2); White Blood Count 10.3 K/mm3 (4.4-11.0)
[2019-07-19 04:26] LABS: Differential Indicated SCAN CRITERIA MET
[2019-07-19 04:32] LABS: Anion Gap 8 (5-15); BUN 61 mg/dL (7-18); Calcium,Total 7.7 mg/dL (8.5-10.1); Chloride 107 mmol/L (98-107); Creatinine, Serum 4.37 mg/dL (0.70-1.30); EST Glomerular Filtration Rate 14 mL/min (>60); Est Glom Filt Rate - Afr Amer 17 mL/min (>60); Estimated Creatinine Clearance 13.03 ml/min; Glucose 98 mg/dL (74-106); Potassium 5.2 mmol/L (3.5-5.1); Sodium Level 134 mmol/L (136-145)
[2019-07-19 05:21] LABS: Bedside Glucose 92 mg/dL (70-110)
[2019-07-19 05:24] LABS: Differential Comment SCANNED
--- NOTE | 2019-07-19 06:23 | PCM.PN.INT ---
Subjective: The patient was seen and examined at the bedside this morning. Events from the last 24 hours have been reviewed. The patient has been experiencing low-grade fevers overnight. Levophed is currently infusing at 4 mcg/min. Creatinine has worsened this morning to 4.37. Urine output is decreasing. The patient is currently documented to be overall net +7.7 L for the hospital admission. The patient did fairly well this morning on his spontaneous breathing trial. FiO2 requirement is currently 40%. Heart rate is under better control this morning. The patient continues to have a distended, firm abdomen with dark output from his OG tube. Objective: The patient's most recent lab work, culture data and imaging studies have all been personally reviewed. Surface echocardiogram revealed moderate concentric LVH with an ejection fraction of 65%. Right ventricular systolic pressure was estimated to be 40 mmHg. Strep and urine Legionella antigens were negative. Sputum Gram stain was positive for alpha hemolytic Streptococcus. General: - - Remains intubated, sedated and mechanically ventilated. HEENT: Atraumatic, PERRLA, Normocephalic Oral: No Gingival or Mucosal Lesions/ Ulcerations, - - Endotracheal and OG tubes remain in place. Neck: Supple, No Nodes, Trachea Midline Lungs: Diminished, - - Faint rales present in dependent portion of left lung base. Cardiovascular: Normal S1, Normal S2, Irregular Rate, Murmur, Tachycardic Abdomen: Hypoactive Bowel Sounds, Distended, - - Firm. Extremities: No clubbing, No cyanosis, No edema Skin: - - No significant change from previous. Musculoskeletal: No Tenderness to Palpation of Joints or Extremities Lymphatic: No Cervical, Supraclavicular, or Inguinal Adenopathy Neurological: - - No focal neurological deficits. Currently sedated. Vital Signs Temp Pulse Resp BP Pulse Ox 99.7 F H 101 H 12 113/71 93 07/19/19 05:00 07/19/19 05:45 07/19/19 05:15 07/19/19 05:45 07/19/19 05:00 Oxygen Flow Rate (L/min) 50 Oxygen Delivery Method Mechanical Ventilator Weight: 171 lb 11.841 oz Body Mass Index (BMI) 25.4 Intake and Output for Last 24 Hours 07/17/19 07/18/19 07/19/19 23:59 23:59 23:59 Intake Total 4627.18 / 4756.83 1892.65 / 1978.14 335.31 / 335.31 Output Total 550 / 650 950 / 1050 100 / 100 Balance 4077.18 / 4106.83 942.65 / 928.14 235.31 / 235.31 Labs (Last 48 Hours) 07/16/19 07/17/19 07/17/19 11:15 09:34 10:00 WBC RBC Hgb Hct MCV MCH MCHC RDW Std Deviation RDW Coeff of Jeanne Plt Count MPV Immature Gran % (Auto) Neut % (Auto) Lymph % (Auto) [place] % (Auto) Eos % (Auto) Baso % (Auto) Absolute Neuts (auto) Absolute Lymphs (auto) Nucleated RBC % Differential Comment Diff Path Review Reviewed Specimen Type ART Sample Site R Brachial pH 7.33 L Bicarbonate Actual 15.3 L POC Total CO2 16 Base Excess -11 L O2 Saturation 91 L O2 % 100 ABG pCO2 29.1 L ABG pO2 63 L Arturo Test POS Respiration Rate 12 O2 Delivery Device Vent Minute Volume 12.00 Vent Mode A-C Tidal Volume 500 POC PEEP 5 Blood Gas Notified Whom ICU MD Blood Gas Notified Time 934 Sodium Potassium Chloride Carbon Dioxide Anion Gap BUN Creatinine Estim Creat Clear Calc Est GFR (MDRD) Af Amer Est GFR (MDRD) Non-Af BUN/Creatinine Ratio Glucose Hemoglobin A1c Calcium Total Bilirubin Direct Bilirubin AST ALT Alkaline Phosphatase Total Creatine Kinase Troponin I 0.511 H B-Natriuretic Peptide Total Protein Albumin Globulin Triglycerides Vancomycin Trough POC Glucose 07/17/19 07/17/19 07/18/19 10:00 19:50 00:00 WBC RBC Hgb 10.6 L Hct 33.1 L MCV MCH MCHC RDW Std Deviation RDW Coeff of Jeanne Plt Count MPV Immature Gran % (Auto) Neut % (Auto) Lymph % (Auto) [place] % (Auto) Eos % (Auto) Baso % (Auto) Absolute Neuts (auto) Absolute Lymphs (auto) Nucleated RBC % Differential Comment Diff Path Review Specimen Type Sample Site pH Bicarbonate Actual POC Total CO2 Base Excess O2 Saturation O2 % ABG pCO2 ABG pO2 Arturo Test Respiration Rate O2 Delivery Device Minute Volume Vent Mode Tidal Volume POC PEEP Blood Gas Notified Whom Blood Gas Notified Time Sodium Potassium Chloride Carbon Dioxide Anion Gap BUN Creatinine Estim Creat Clear Calc Est GFR (MDRD) Af Amer Est GFR (MDRD) Non-Af BUN/Creatinine Ratio Glucose Hemoglobin A1c Calcium Total Bilirubin Direct Bilirubin AST ALT Alkaline Phosphatase Total Creatine Kinase 530 H Troponin I B-Natriuretic Peptide Total Protein Albumin Globulin Triglycerides 196 Vancomycin Trough POC Glucose 105 07/18/19 07/18/19 07/18/19 00:20 04:45 04:45 WBC 9.0 RBC 3.82 L Hgb 11.9 L Hct 37.2 L MCV 97.4 H MCH 31.2 MCHC 32.0 RDW Std Deviation 49.5 H RDW Coeff of Jeanne 13.8 Plt Count 152 MPV 9.8 Immature Gran % (Auto) 1.800 H Neut % (Auto) 86.6 H Lymph % (Auto) 8.6 L [place] % (Auto) 2.7 Eos % (Auto) 0.0 Baso % (Auto) 0.3 Absolute Neuts (auto) 7.8 H Absolute Lymphs (auto) 0.78 L Nucleated RBC % 0 Differential Comment SCANNED Diff Path Review Specimen Type Sample Site pH Bicarbonate Actual POC Total CO2 Base Excess O2 Saturation O2 % ABG pCO2 ABG pO2 Arturo Test Respiration Rate O2 Delivery Device Minute Volume Vent Mode Tidal Volume POC PEEP Blood Gas Notified Whom Blood Gas Notified Time Sodium 136 Potassium 4.8 Chloride 109 H Carbon Dioxide 21.0 Anion Gap 6 BUN 42 H Creatinine 2.60 H Estim Creat Clear Calc 21.89 Est GFR (MDRD) Af Amer 31 L Est GFR (MDRD) Non-Af 26 L BUN/Creatinine Ratio 16.2 Glucose 96 Hemoglobin A1c Calcium 7.8 L Total Bilirubin Direct Bilirubin AST ALT Alkaline Phosphatase Total Creatine Kinase Troponin I B-Natriuretic Peptide Total Protein Albumin Globulin Triglycerides Vancomycin Trough POC Glucose 87 07/18/19 07/18/19 07/18/19 04:45 04:45 04:45 WBC RBC Hgb Hct MCV MCH MCHC RDW Std Deviation RDW Coeff of Jeanne Plt Count MPV Immature Gran % (Auto) Neut % (Auto) Lymph % (Auto) [place] % (Auto) Eos % (Auto) Baso % (Auto) Absolute Neuts (auto) Absolute Lymphs (auto) Nucleated RBC % Differential Comment Diff Path Review Specimen Type Sample Site pH Bicarbonate Actual POC Total CO2 Base Excess O2 Saturation O2 % ABG pCO2 ABG pO2 Arturo Test Respiration Rate O2 Delivery Device Minute Volume Vent Mode Tidal Volume POC PEEP Blood Gas Notified Whom Blood Gas Notified Time Sodium Potassium Chloride Carbon Dioxide Anion Gap BUN Creatinine Estim Creat Clear Calc Est GFR (MDRD) Af Amer Est GFR (MDRD) Non-Af BUN/Creatinine Ratio Glucose Hemoglobin A1c 6.3 Calcium Total Bilirubin Direct Bilirubin AST ALT Alkaline Phosphatase Total Creatine Kinase Troponin I 1.030 H* B-Natriuretic Peptide 534.1 H Total Protein Albumin Globulin Triglycerides Vancomycin Trough POC Glucose 07/18/19 07/18/19 07/18/19 04:45 06:16 12:06 WBC RBC Hgb Hct MCV MCH MCHC RDW Std Deviation RDW Coeff of Jeanne Plt Count MPV Immature Gran % (Auto) Neut % (Auto) Lymph % (Auto) [place] % (Auto) Eos % (Auto) Baso % (Auto) Absolute Neuts (auto) Absolute Lymphs (auto) Nucleated RBC % Differential Comment Diff Path Review Specimen Type Sample Site pH Bicarbonate Actual POC Total CO2 Base Excess O2 Saturation O2 % ABG pCO2 ABG pO2 Arturo Test Respiration Rate O2 Delivery Device Minute Volume Vent Mode Tidal Volume POC PEEP Blood Gas Notified Whom Blood Gas Notified Time Sodium Potassium Chloride Carbon Dioxide Anion Gap BUN Creatinine Estim Creat Clear Calc Est GFR (MDRD) Af Amer Est GFR (MDRD) Non-Af BUN/Creatinine Ratio Glucose Hemoglobin A1c Calcium Total Bilirubin 1.10 H Direct Bilirubin 0.79 H AST 41 H ALT 27 Alkaline Phosphatase 58 Total Creatine Kinase Troponin I B-Natriuretic Peptide Total Protein 6.2 L Albumin 2.0 L Globulin 4.2 Triglycerides Vancomycin Trough POC Glucose 104 98 07/18/19 07/18/19 07/18/19 13:55 16:30 18:12 WBC RBC Hgb 11.7 L Hct 36.2 L MCV MCH MCHC RDW Std Deviation RDW Coeff of Jeanne Plt Count MPV Immature Gran % (Auto) Neut % (Auto) Lymph % (Auto) [place] % (Auto) Eos % (Auto) Baso % (Auto) Absolute Neuts (auto) Absolute Lymphs (auto) Nucleated RBC % Differential Comment Diff Path Review Specimen Type Sample Site pH Bicarbonate Actual POC Total CO2 Base Excess O2 Saturation O2 % ABG pCO2 ABG pO2 Arturo Test Respiration Rate O2 Delivery Device Minute Volume Vent Mode Tidal Volume POC PEEP Blood Gas Notified Whom Blood Gas Notified Time Sodium Potassium Chloride Carbon Dioxide Anion Gap BUN Creatinine Estim Creat Clear Calc Est GFR (MDRD) Af Amer Est GFR (MDRD) Non-Af BUN/Creatinine Ratio Glucose Hemoglobin A1c Calcium Total Bilirubin Direct Bilirubin AST ALT Alkaline Phosphatase Total Creatine Kinase Troponin I B-Natriuretic Peptide Total Protein Albumin Globulin Triglycerides Vancomycin Trough 15.0 POC Glucose 103 07/19/19 07/19/19 07/19/19 00:04 04:07 04:07 WBC 10.3 RBC 3.53 L Hgb 10.8 L Hct 34.5 L MCV 97.7 H MCH 30.6 MCHC 31.3 L RDW Std Deviation 51.4 H RDW Coeff of Jeanne 14.2 Plt Count 138 L MPV 9.6 Immature Gran % (Auto) 2.800 H Neut % (Auto) 88.3 H Lymph % (Auto) 4.7 L [place] % (Auto) 3.8 Eos % (Auto) 0.1 Baso % (Auto) 0.3 Absolute Neuts (auto) 9.1 H Absolute Lymphs (auto) 0.49 L Nucleated RBC % 0 Differential Comment SCANNED Diff Path Review Specimen Type Sample Site pH Bicarbonate Actual POC Total CO2 Base Excess O2 Saturation O2 % ABG pCO2 ABG pO2 Arturo Test Respiration Rate O2 Delivery Device Minute Volume Vent Mode Tidal Volume POC PEEP Blood Gas Notified Whom Blood Gas Notified Time Sodium 134 L Potassium 5.2 H Chloride 107 Carbon Dioxide 19.0 L Anion Gap 8 BUN 61 H Creatinine 4.37 H Estim Creat Clear Calc 13.03 Est GFR (MDRD) Af Amer 17 L Est GFR (MDRD) Non-Af 14 L BUN/Creatinine Ratio 14.0 Glucose 98 Hemoglobin A1c Calcium 7.7 L Total Bilirubin Direct Bilirubin AST ALT Alkaline Phosphatase Total Creatine Kinase Troponin I B-Natriuretic Peptide Total Protein Albumin Globulin Triglycerides Vancomycin Trough POC Glucose 97 07/19/19 05:09 WBC RBC Hgb Hct MCV MCH MCHC RDW Std Deviation RDW Coeff of Jeanne Plt Count MPV Immature Gran % (Auto) Neut % (Auto) Lymph % (Auto) [place] % (Auto) Eos % (Auto) Baso % (Auto) Absolute Neuts (auto) Absolute Lymphs (auto) Nucleated RBC % Differential Comment Diff Path Review Specimen Type Sample Site pH Bicarbonate Actual POC Total CO2 Base Excess O2 Saturation O2 % ABG pCO2 ABG pO2 Arturo Test Respiration Rate O2 Delivery Device Minute Volume Vent Mode Tidal Volume POC PEEP Blood Gas Notified Whom Blood Gas Notified Time Sodium Potassium Chloride Carbon Dioxide Anion Gap BUN Creatinine Estim Creat Clear Calc Est GFR (MDRD) Af Amer Est GFR (MDRD) Non-Af BUN/Creatinine Ratio Glucose Hemoglobin A1c Calcium Total Bilirubin Direct Bilirubin AST ALT Alkaline Phosphatase Total Creatine Kinase Troponin I B-Natriuretic Peptide Total Protein Albumin Globulin Triglycerides Vancomycin Trough POC Glucose 92 Microbiology 07/16/19 11:50 Blood Culture (Wb) - Anticubital Left Blood Culture - Preliminary No growth in 48 hours. 07/16/19 11:15 Blood Culture (Wb) - Arm Left Blood Culture - Preliminary No growth in 48 hours. 07/17/19 15:15 Urine Catheter - [place] Urine Culture - Preliminary Culture exhibits no growth. 07/16/19 21:00 Sputum, Expectorated/Coughed Gram Stain - Final 07/16/19 21:00 Sputum, Expectorated/Coughed Respiratory Culture - Preliminary Alpha Hemolytic Streptococcus 07/16/19 16:30 Urine Catheter - Catheter Urine Culture - Preliminary Culture exhibits no growth. 07/17/19 09:00 Sputum, Induced/Lukens Gram Stain - Final Clinical Impression(s) from Imaging Studies Chest X-Ray 07/17/19 06:43 IMPRESSION: Progressive left upper lobe infiltrate. Electronically Signed: Behzad Jimenez, at 8:27 EST , Service support , Chest X-Ray 07/17/19 08:33 IMPRESSION: The tip of the endotracheal tube is at 2.1 cm proximal to the donaldo. The tip of the orogastric tube is in the distal stomach. Stable opacification in the left hemithorax as well as increased markings at the right lung base. Electronically Signed: Behzad Jimenez, at 10:02 EST , Service support , Chest X-Ray 07/17/19 12:34 IMPRESSION: A right-sided PICC line catheter has been placed. The tip is at the junction of the superior vena cava and right atrium. The tip of the endotracheal tube should be withdrawn approximately 2 cm. Stable appearance of both lungs. Electronically Signed: Behzad Jimenez, at 13:16 EST , Service support , KUB X-Ray 07/18/19 08:24 IMPRESSION: 1. Mildly reduced patchy airspace disease of the left lung. Small layering right effusion. 2. NG tube tip overlying the distal stomach. Otherwise no evidence of definitive bowel dilatation or air-fluid levels. 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 Continue current supportive measures with invasive mechanical ventilatory support. Continue to wean FiO2 and PEEP to maintain oxygen saturations at or above 90%. 2. Continue Zosyn. Vancomycin can be discontinued from my perspective. 3. Continue vasopressor support to maintain a mean arterial pressure at or above 65 mmHg. 4. Continue current sedation regimen. 5. Continue current medical management of atrial fibrillation per cardiology recommendations. 6. Check gastric occult blood. Stop Eliquis. 7. Obtain nephrology consultation. 8. Stop scheduled potassium repletion. 9. Obtain CT A/P with contrast if hemodialysis is considered today. IMPRESSIONS: 1. Acute hypoxemic respiratory failure secondary to severe community-acquired pneumonia Unfortunately, the patient continued to decompensate clinically despite the use of noninvasive positive pressure ventilatory support. The patient's respiratory status is also complicated by the fact that he is currently in atrial fibrillation with a rapid ventricular rate. The patient did require intubation on the morning of July 17. He will remain on broad spectrum antibiotics, pending finalized infectious workup. We will plan to wean FiO2 to maintain oxygen saturations at or above 90%. 2. Severe sepsis likely secondary to community-acquired pneumonia Continue current supportive measures including invasive mechanical ventilatory support and broad-spectrum antimicrobial coverage, pending infectious work-up. 3. Distributive shock The patient became hypotensive following intubation and subsequent initiation of sedative medications. I cannot discount the possibility that a component of the patient's hemodynamic instability may also be secondary to his underlying dysrhythmia and elevated ventricular rate. As noted above, we will plan to continue vasopressor support to maintain hemodynamics. 4. Acute kidney injury Possibly secondary to ischemic ATN in the setting of hemodynamic instability due to the patient's underlying infectious process, atrial fibrillation with rapid ventricular rate and sedation related hypotension versus possible abdominal compartment syndrome. Continue current supportive measures as noted above. Continue to monitor urine output. Nephrology consultation will be obtained. If hemodialysis is being considered today, will plan to obtain CT A/P with contrast prior to HD session. 5. Paroxysmal atrial fibrillation with rapid ventricular rate/coronary artery disease status post bypass/aortic valve replacement The patient is currently being medically managed with the assistance of cardiology. Continue amiodarone as ordered. TIME: 37 minutes of critical care time, independent of procedures, was spent addressing the patient's acute hypoxemic respiratory failure, severe sepsis secondary to community-acquired pneumonia, distributive shock, acute kidney injury, paroxysmal atrial fibrillation with rapid ventricular rate, review of all data and collaboration with the care team. ([id number]) Code Visit [id number]: [id number] Critical care first hour
[2019-07-19] MEDS: Propofol 10MG/Ml 1,000 MG/100 ML Bottle 2.3 MG CONT INF ×2 (06:37→18:15)
[2019-07-19] MEDS: TITRATION PARAMETER CHANGE 1 EACH IV (07:21)
--- NOTE | 2019-07-19 08:48 | PN_ITS ---
Patient Problems: Active and Suspected Problems (Last Reviewed 07/14/19 @ 18:38 by Joan Charles) Severe sepsis (Acute) Community acquired pneumonia (Acute) Reason for Visit: Septic shock. Acute hypoxic respiratory failure on ventilator Objective: Low-grade fever, T-max 99. 8 Fahrenheit. Blood pressure on vasopressor support, goal map 65. Mild abdominal distention. OG tube shows bloody aspirate. Vitals/I&O's: Vital Signs Temp Pulse Resp BP Pulse Ox 99.7 F H 101 H 13 103/52 L 94 07/19/19 08:00 07/19/19 08:00 07/19/19 08:00 07/19/19 08:00 07/19/19 08:00 Oxygen Flow Rate (L/min) 50 Oxygen Delivery Method Mechanical Ventilator Weight: 171 lb 11.841 oz Body Mass Index (BMI) 25.4 Intake and Output for Last 24 Hours 07/17/19 07/18/19 07/19/19 23:59 23:59 23:59 Intake Total 4627.18 / 4756.83 1892.65 / 1978.14 451.00 / 451.00 Output Total 550 / 650 950 / 1050 225 / 225 Balance 4077.18 / 4106.83 942.65 / 928.14 226.00 / 226.00 General: Lethargic, - - Sedated on propofol and fentanyl Oral: - - ET and OG tube Lungs: - - Air entry bilateral equal. On vent support Abdomen: Hypoactive Bowel Sounds, Distended, - - Low urine output oliguria, 0.07 mL/kg/h. Urine dark mustard color. Concentrated Extremities: Edema Skin: No rashes, No breakdown Musculoskeletal: Arthritic Changes Neurological: - - Sedated Microbiology Past 72 Hours 07/19/19 06:35 Gastric Fluid/Contents Gastric Occult Blood - Final Occult Blood Positive 07/16/19 11:50 Blood Culture (Wb) - Anticubital Left Blood Culture - Preliminary No growth in 48 hours. 07/16/19 11:15 Blood Culture (Wb) - Arm Left Blood Culture - Preliminary No growth in 48 hours. 07/17/19 15:15 Urine Catheter - Bark[place] Urine Culture - Preliminary Culture exhibits no growth. 07/16/19 21:00 Sputum, Expectorated/Coughed Gram Stain - Final 07/16/19 21:00 Sputum, Expectorated/Coughed Respiratory Culture - Preliminary Alpha Hemolytic Streptococcus 07/16/19 16:30 Urine Catheter - Catheter Urine Culture - Preliminary Culture exhibits no growth. 07/17/19 09:00 Sputum, Induced/Lukens Gram Stain - Final 07/16/19 16:30 Urine Catheter - Catheter Streptococcus pneumoniae Antigen (M - Final 07/16/19 16:30 Urine Catheter - Catheter Legionella Antigen - Final 07/16/19 11:50 Mucosa - Nose Respiratory Panel (PCR) - Final Laboratory Results 07/18/19 00:00: Hgb 10.6 L, Hct 33.1 L 07/18/19 04:45: Total Bilirubin 1.10 H, Direct Bilirubin 0.79 H, AST 41 H, ALT 27, Alkaline Phosphatase 58, Total Protein 6.2 L, Albumin 2.0 L, Globulin 4.2 07/18/19 12:06: POC Glucose 98 07/18/19 13:55: Vancomycin Trough 15.0 07/18/19 16:30: Hgb 11.7 L, Hct 36.2 L 07/18/19 18:12: POC Glucose 103 07/19/19 00:04: POC Glucose 97 07/19/19 04:07: WBC 10.3, RBC 3.53 L, Hgb 10.8 L, Hct 34.5 L, MCV 97.7 H, MCH 30.6, MCHC 31.3 L, RDW Std Deviation 51.4 H, RDW Coeff of Jeanne 14.2, Plt Count 138 L, MPV 9.6, Immature Gran % (Auto) 2.800 H, Neut % (Auto) 88.3 H, Lymph % (Auto) 4.7 L, [place] % (Auto) 3.8, Eos % (Auto) 0.1, Baso % (Auto) 0.3, Absolute Neuts (auto) 9.1 H, Absolute Lymphs (auto) 0.49 L, Nucleated RBC % 0, Differential Comment SCANNED 07/19/19 04:07: Sodium 134 L, Potassium 5.2 H, Chloride 107, Carbon Dioxide 19.0 L, Anion Gap 8, BUN 61 H, Creatinine 4.37 H, Estim Creat Clear Calc 13.03, Est GFR (MDRD) Af Amer 17 L, Est GFR (MDRD) Non-Af 14 L, BUN/Creatinine Ratio 14.0, Glucose 98, Calcium 7.7 L 07/19/19 05:09: POC Glucose 92 Current Medications Acetaminophen (Tylenol Liquid) 650 mg GT Q6H PRN PRN PRN Reason: Pain or Fever Apixaban (Eliquis) 5 mg GT BID [facility] Last Admin: 07/18/19 21:13 Dose: 5 mg Documented by: Chlorhexidine Gluconate () 15 ml PO BID [facility] Last Admin: 07/18/19 19:41 Dose: 15 ml Documented by: Chlorhexidine Gluconate () 1 each TOPICAL DAILY [facility] Last Admin: 07/19/19 00:53 Dose: 1 each Documented by: Glucagon () 1 mg IM .X1 PRN PRN Reason: Hypoglycemia Guaifenesin (Robitussin) 60 ml GT BID [facility] Last Admin: 07/18/19 21:12 Dose: 60 ml Documented by: Dextrose (Dextrose 10%-Water) 250 mls @ 999 mls/hr IV .Q16M PRN; Protocol PRN Reason: HYPOGLYCEMIA Piperacillin Sod/Tazobactam (Sod 3.375 gm/ Sodium Chloride) 50 mls @ 12.5 mls/hr IV Q8 [facility] Last Infusion: 07/19/19 08:05 Dose: 12.5 mls/hr Documented by: Vancomycin IV Pharmacy to Dose (1 ea/ Sodium Chloride) 500 mls @ 250 mls/hr IV PRN PRN; Protocol PRN Reason: Rx to Dose Norepinephrine Bitartrate 8 mg (/ Sodium Chloride) 250 mls @ 9.375 mls/hr CONT INF .[id number] [facility]; Protocol Last Titration: 07/19/19 08:00 Dose: 4 mcg/min, 7.5 mls/hr Documented by: Propofol (Diprivan) 1,000 mg in 100 mls @ 4.674 mls/hr CONT INF .Q12H [facility]; Protocol Last Titration: 07/19/19 08:00 Dose: 5 mcg/kg/min, 2.3 mls/hr Documented by: Fentanyl () 100 mls @ 15 mls/hr IV UD [facility]; Protocol Last Titration: 07/19/19 08:00 Dose: 50 mcg/hr, 5 mls/hr Documented by: Amiodarone HCl 360 mg/ (Dextrose) 200 mls @ 16.667 mls/hr CONT INF .Q12H [facility] Last Infusion: 07/19/19 08:06 Dose: 0.5 mg/min, 16.7 mls/hr Documented by: Pantoprazole Sodium 40 mg/ (Sodium Chloride) 110 mls @ 330 mls/hr IV Q12 [facility] Last Infusion: 07/18/19 21:27 Dose: Infused Documented by: Vancomycin HCl (Vancomycin) 1,000 mg in 200 mls @ 200 mls/hr IV Q24H [facility] Last Infusion: 07/18/19 19:23 Dose: Infused Documented by: Insulin Human Lispro (Humalog Kwikpen (Bkc)) 0 unit SC Q6 [facility]; Protocol Last Admin: 07/19/19 05:11 Dose: Not Given Documented by: Ipratropium [place] (Atrovent) 0.5 mg INHALATION Q4H.RT [facility] Last Admin: 07/19/19 06:37 Dose: 0.5 mg Documented by: Rosuvastatin Calcium (Crestor) 10 mg GT QHS [facility] Last Admin: 07/18/19 21:13 Dose: 10 mg Documented by: Sodium Chloride () 10 - 40 ml IV UD PRN PRN Reason: SALINE FLUSH Last Admin: 07/19/19 05:11 Dose: 10 ml Documented by: STROKE Vital Signs/Narrative: Vital Signs Temp Pulse Resp BP Pulse Ox 07/19/19 08:00 99.7 F H 101 H 13 103/52 L 94 07/19/19 07:30 106 H 13 101/51 L 92 07/19/19 07:20 99 14 93 07/19/19 07:01 99.8 F H 102 H 13 109/58 L 94 07/19/19 06:45 102 H 141/55 H 07/19/19 06:30 101 H 122/54 H 07/19/19 06:15 98 106/58 L 07/19/19 06:00 99.8 F H 103 H 13 127/65 H 93 07/19/19 05:45 101 H 113/71 07/19/19 05:30 103 H 131/61 H 07/19/19 05:15 102 H 12 143/62 H 07/19/19 05:00 99.7 F H 101 H 15 125/63 H 93 Medical Necessity - Tobacco Use Smoking Status: Former smoker - About 5 to 10 years states less than a pack per day Tobacco Use: Cigarettes, Cigars Assessment/Plan All Active Problems (Last Reviewed 07/14/19 @ 18:38 by Joan Charles) Severe sepsis (Acute) Community acquired pneumonia (Acute) 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) Atelectasis (Acute) 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) USP (current) use of anticoagulants (Acute) Atrial fibrillation (Acute) Non-rheumatic aortic stenosis (Resolved) The patient is a 79 year old M with history of coronary artery disease status post CABG three-vessel, aortic stenosis status post AVR in April 2018, paroxysmal A. fib was sent to urgent care from Dr. Lyles office after he was found short of breath and hypoxic. From urgent care patient was sent to ER. Patient was not on oxygen at home In ED, patient was found hypoxic, 88% on room air, tachypneic respiratory 24, 93% on 3 L oxygen. During conversation and exam, he became more hypoxic and tachypneic, respiratory 35/min and 92% oxygen requirement 5 L. Chest x-ray showed large area of consolidation in the left upper lobe and lingular lobe same superior segment of left lower lobe. While in ER, patient went into A. fib with RVR, on monitor heart rate 155/min. EKG was done shows A. fib with RVR at 60/min 1. Septic shock (tachycardia, tachypnea, leukocytosis, bandemia and lactic acidosis, 3.2, coagulopathy INR 1.8 total bili 1.6,) and acute hypoxic respiratory failure, present on admission secondary to left upper lobe/lingular and superior segment of left lower lobe, multilobar community-acquired pneumonia: Patient is being admitted in ICU. Classifier Operator consulted and discussed. IV fluid normal saline 30 mils per KG in first 4 hours and then maintenance fluid. Currently patient is normotensive. Pneumonia work-up including blood cultures x2, sputum culture, urinary antigens, MRSA nasal screen and respiratory panel. UA with urine culture also ordered. Started on Levaquin 750 mg IV daily. Patient did not any recent antibiotic. 07/17/2019: Overall patient respiratory status deteriorated requiring BiPAP since evening. Patient is intubated. Earlier CODE STATUS was discussed by teacher associate and the patient and family agreed for full code. Vent support. Urinary antigens are negative. Blood cultures x2 and sputum culture pending. Respiratory panel negative. Antibiotic is brought in to vancomycin and Zosyn. Levaquin discontinued. 07/18: ABG 7.3 //63/16 on 100% FiO2/500/12/5. Vent parameters currently on 50% FiO2/500/12/8 patient started on Levophed drip on 07/17. right arm PICC line. ET and OG tube. 07/19: On vent support as per teacher associate. On light sedation, propofol and fentanyl. 2. upper GI bleed with mild acute anemia secondary to blood loss/hemodilution: Coffee grounds/bloody aspirate from OG tube. On PPI every 12. H&H dropped from 13.2-11.9. Monitor H&H. Will DC baby aspirin and continue Eliquis. Patient has positive fluid balance of about 6.5 L Abdominal distention most likely small and large intestine ileus: OG tube suction. On PPI every 12. 3. A. fib with RVR with history of tachybradycardia syndrome: Patient has history of paroxysmal A. fib and had postoperative A. fib after CABG. On metoprolol 50 mg twice daily. Consult cardiology. Eliquis 5 mg twice daily. Metoprolol 5 mg IV one dose ordered to see the response of tachycardia. Patient might drop blood pressure on Cardizem. Patient is not on anticoagulant as per home medication 07/17: Patient remained in and out of A. fib. On Eliquis. Started on amiodarone drip after 150 mg IV bolus by career services director. Current heart rate in 111. 07/18: Patient is still tachycardic but rate is better. 07/19: Heart rate is controlled still in A. fib. 3. Acute kidney injury most likely prerenal with sepsis/ATN: Patient baseline creatinine is unknown, last one 1.2 in August 2013. Admitted with BUN/creatinine 27/1.83. Patient urine output has been 0.17 mL/kg/h. Total 550 mL charted since admission. Positive fluid balance about 4 L. Patient is getting Bark[place] catheterization. Monitor intake and output. Electrolytes are fairly normal limit except bicarb 19, anion gap 10. CO2 was 24 yesterday 07/18: Urine output 0.1 4 mL/kg/h total 250 mL urine, gastric drainage 400 mL I&O 590/650. BUN 42. Creatinine went up from 1.83-2.6. 07/19:Low urine output oliguria, 0.07 mL/kg/h. Total urine output 125 mL since morning. 350 mL 24 hours yesterday. Adjuster Piano Action is been consulted 4. Coronary artery disease status post CABG x3, aortic stenosis status post aortic valve replacement in April 2018: Recent echo on 07/03/2019 reported as EF 65% with stage I diastolic dysfunction. Moderate concentric LVH. Mildly dilated RV with normal systolic function. LA moderately enlarged. Right atrium moderately enlarged. Mild diffuse mitral valve thickening with trivial MR. Mild TR, RVSP 30 mmHg. Stable appearing bioprosthetic aortic valve apparatus. First EKG in the ER normal sinus rhythm at [address]-T changes Home cardiac medications metoprolol rosuvastatin continued. Lasix held. 4. Other comorbidities include hypertension, dyslipidemia: Home medication reconciliation done. Code Visit Inpatient E&M: 76443 [facility] Hosp L3
[2019-07-19] MEDS: Digoxin 250 MCG/ML Ampul 500 MCG IV (08:54)
[2019-07-19] MEDS: Chlorhexidine 15 ML PO ×2 (10:02→21:54)
[2019-07-19] MEDS: Heparin Injection (Vial) 5,000 UNIT/ML VIAL 5000 UNIT SC ×2 (10:02→21:53)
[2019-07-19] MEDS: guaiFENesin 10 ML UDC (200MG/10ML) 60 ML GT ×2 (10:03→23:36)
--- NOTE | 2019-07-19 10:57 | PN.CARD_ITS ---
Subjectve: 79-year-old white male with septic shock. At the moment patient is intubated for respiratory failure and pneumonia. Cardiac history include aortic valve replacement and CABG for triple-vessel coronary artery disease 1 year ago with bioprosthetic valve. Repeat echo recently showed normal ejection fraction. Patient has a stage 4 renal insufficiency today. Patient is oliguric. At the moment patient has had atrial fibrillation with fast ventricular rate at 130/min despite IV amiodarone drip. Blood pressure is on the low side of normal with systolic blood pressure around 90s. Yesterday patient had 1 dose of IV digoxin 0.5 mg. It has slowed down the ventricular rate to the 100s. Another dose has been given this morning. Abdomen is distended still despite NG tube Objective: Vital Signs Temp Pulse Resp BP Pulse Ox 99.7 F H 92 12 96/56 L 95 07/19/19 08:00 07/19/19 10:00 07/19/19 10:00 07/19/19 10:00 07/19/19 10:00 Oxygen Flow Rate (L/min) 50 Oxygen Delivery Method Mechanical Ventilator Weight: 171 lb 11.841 oz Body Mass Index (BMI) 25.4 Intake and Output for Last 24 Hours 07/17/19 07/18/19 07/19/19 23:59 23:59 23:59 Intake Total 4627.18 / 4756.83 1892.65 / 1978.14 665.87 / 665.87 Output Total 550 / 650 950 / 1050 225 / 225 Balance 4077.18 / 4106.83 942.65 / 928.14 440.87 / 440.87 General: - - Sedated and intubated Oral: - - NG tube present Lungs: - - Sedated and intubated, decreased air entry Cardiovascular: Irregular Rhythm - And fast, heart sounds distant, no gross murmur Abdomen: Distended - Decreased bowel sounds Skin: - - Dry and warm Neurological: - - Sedated and intubated 07/18/19 00:00: Hgb 10.6 L, Hct 33.1 L 07/18/19 16:30: Hgb 11.7 L, Hct 36.2 L 07/19/19 04:07: WBC 10.3, RBC 3.53 L, Hgb 10.8 L, Hct 34.5 L, MCV 97.7 H, MCH 30.6, MCHC 31.3 L, Plt Count 138 L, MPV 9.6, Immature Gran % (Auto) 2.800 H, Neut % (Auto) 88.3 H, Lymph % (Auto) 4.7 L, [place] % (Auto) 3.8, Eos % (Auto) 0.1, Baso % (Auto) 0.3, Absolute Neuts (auto) 9.1 H, Nucleated RBC % 0 07/19/19 04:07: Sodium 134 L, Potassium 5.2 H, Chloride 107, Carbon Dioxide 19.0 L, Anion Gap 8, BUN 61 H, Creatinine 4.37 H, Est GFR (MDRD) Af Amer 17 L, Est GFR (MDRD) Non-Af 14 L, BUN/Creatinine Ratio 14.0, Glucose 98, Calcium 7.7 L Rhythm: EKG: ECHO: Stress Test: Cardiac Cath: PCI: CT Surgery: Holter monitor: EPS: PPM: CXR: Chest CT Scan: Medical Necessity - Tobacco Use Smoking Status: Former smoker - About 5 to 10 years states less than a pack per day Tobacco Use: Cigarettes, Cigars Assessment/Plan #1 septic shock #2 atrial fibrillation with fast ventricular rate now improved with IV digoxin. There was elevated troponin probably secondary to type II myocardial infarct. Echocardiogram showed normal ejection fraction and wall motion #3 stage 4 renal insufficiency with oliguric and hyperkalemia #4 bioprosthetic valve for bicuspid valve and 3 grafts bypass 1 year ago #5 intra-vascular volume uncertain Plan: At this point, for the hyperkalemia and worsening of renal function, truck driver instructor has been consulted. If there is no improvement by tomorrow, I would recommend putting in a [place] catheter in the cardiac catheterization laboratory to determine the intravascular volume. The ventricular rate will be improved further with 1 more dose of digoxin IV. Prognosis is guarded Code Visit Inpatient E&M: 52677 Subs Hosp L2
[2019-07-19 11:40] LABS: Bedside Glucose 88 mg/dL (70-110)
--- NOTE | 2019-07-19 12:29 | PCM.CONS.R ---
Consultation - Renal 07/19/19 PCP/ Referring MD: Requesting physician: [] Primary care physician: Vidal Adams MD Reason for Consultation:: Iscahemic ATN CKD III BScr 1.4 - History of Present Illness History of Present Illness: The patient is a 79 year old M with CKDIII baseline 1.2 to 1.4 now admitted with sepsis with cardiogenic component with VDRF intubated for respiratory failure and pneumonia. Cardiac history include aortic valve replacement and CABG for triple-vessel coronary artery disease 1 year ago with bioprosthetic valve. Patient is oliguric with creatinine in >4 with FO +6L. At the moment patient has had atrial fibrillation with fast ventricular rate at 130/min despite IV amiodarone drip. Blood pressure is on the low side of normal with systolic blood pressure around 90s. Abdomen is distended still despite NG tub - Allergies Allergies: Allergies atorvastatin Adverse Reaction (Verified 07/16/19 11:07) myalgias - Current Medications Current Medications: Current Medications Acetaminophen (Tylenol Liquid) 650 mg GT Q6H PRN PRN PRN Reason: Pain or Fever Chlorhexidine Gluconate () 15 ml PO BID [facility] Last Admin: 07/19/19 10:02 Dose: 15 ml Documented by: Chlorhexidine Gluconate () 1 each TOPICAL DAILY [facility]IANNA Last Admin: 07/19/19 00:53 Dose: 1 each Documented by: Glucagon () 1 mg IM .X1 PRN PRN Reason: Hypoglycemia Guaifenesin (Robitussin) 60 ml GT BID [facility] Last Admin: 07/19/19 10:03 Dose: 60 ml Documented by: Heparin Sodium (Porcine) (Heparin Na) 5,000 unit SC Q12 [facility] Last Admin: 07/19/19 10:02 Dose: 5,000 unit Documented by: Dextrose (Dextrose 10%-Water) 250 mls @ 999 mls/hr IV .Q16M PRN; Protocol PRN Reason: HYPOGLYCEMIA Piperacillin Sod/Tazobactam (Sod 3.375 gm/ Sodium Chloride) 50 mls @ 12.5 mls/hr IV Q8 [facility] Last Infusion: 07/19/19 09:50 Dose: Infused Documented by: Norepinephrine Bitartrate 8 mg (/ Sodium Chloride) 250 mls @ 9.375 mls/hr CONT INF .[id number] [facility]; Protocol Last Titration: 07/19/19 12:00 Dose: 4 mcg/min, 7.5 mls/hr Documented by: Propofol (Diprivan) 1,000 mg in 100 mls @ 4.674 mls/hr CONT INF .Q12H [facility]; Protocol Last Titration: 07/19/19 12:00 Dose: 5 mcg/kg/min, 2.3 mls/hr Documented by: Fentanyl () 100 mls @ 15 mls/hr IV UD [facility]; Protocol Last Titration: 07/19/19 11:00 Dose: 50 mcg/hr, 5 mls/hr Documented by: Amiodarone HCl 360 mg/ (Dextrose) 200 mls @ 16.667 mls/hr CONT INF .Q12H [facility] Last Infusion: 07/19/19 11:00 Dose: 0.5 mg/min, 16.7 mls/hr Documented by: Pantoprazole Sodium 40 mg/ (Sodium Chloride) 110 mls @ 330 mls/hr IV Q12 [facility] Last Infusion: 07/19/19 10:26 Dose: Infused Documented by: Insulin Human Lispro (Humalog Kwikpen (Bkc)) 0 unit SC Q6 [facility]; Protocol Last Admin: 07/19/19 11:33 Dose: Not Given Documented by: Ipratropium Lancing (Atrovent) 0.5 mg INHALATION Q4H.RT [facility] Last Admin: 07/19/19 10:53 Dose: 0.5 mg Documented by: Rosuvastatin Calcium (Crestor) 10 mg GT QHS [facility] Last Admin: 07/18/19 21:13 Dose: 10 mg Documented by: Sodium Chloride () 10 - 40 ml IV UD PRN PRN Reason: SALINE FLUSH Last Admin: 07/19/19 05:11 Dose: 10 ml Documented by: - Past Medical History Past Medical History (Chronic Problems): Chronic Problems (Last Reviewed 07/14/19 @ 18:38 by Joan Charles) History of aortic stenosis (Chronic) ROSA to LAD, reverse SVG to OM and PDA of RCA along with AVR using 25 Andrew Awan valve, per Dr. Darrion Meyer, [facility] H/O aortic valve replacement (Chronic 05/22/18) ROSA to LAD, reverse SVG to OM and PDA of RCA along with AVR using 25 Andrew Awan valve, per Dr. Darrion Meyer, [facility] S/P CABG x 3 (Chronic 05/22/18) ROSA to LAD, reverse SVG to OM and PDA of RCA along with AVR using 25 Andrew Awan valve, per Dr. Darrion Meyer, [facility] Hypertension (Chronic) Dyslipidemia (Chronic) Atherosclerosis of coronary artery of [place] heart without angina pectoris (Chronic) - Past Surgical History Surgical History: coronary bypass surgery - Social History Smoking Status: Former smoker - About 5 to 10 years states less than a pack per day Alcohol: None Drugs: None - Family History Paternal History Items: Heart Disease Patient Problems: Active and Suspected Problems (Last Reviewed 07/14/19 @ 18:38 by Joan Charles) Severe sepsis (Acute) Community acquired pneumonia (Acute) - Physical Exam Vitals/I&O's: Vital Signs Temp Pulse Resp BP Pulse Ox 99.6 F H 88 20 H 116/80 80 07/19/19 12:00 07/19/19 12:00 07/19/19 12:00 07/19/19 12:00 07/19/19 12:19 Oxygen Flow Rate (L/min) 50 Oxygen Delivery Method Mechanical Ventilator Weight: 77.9 kg Body Mass Index (BMI) 25.4 Intake and Output for Last 24 Hours 07/17/19 07/18/19 07/19/19 23:59 23:59 23:59 Intake Total 4627.18 / 4756.83 1892.65 / 1978.14 707.17 / 707.17 Output Total 550 / 650 950 / 1050 385 / 385 Balance 4077.18 / 4106.83 942.65 / 928.14 322.17 / 322.17 General: Lethargic HEENT: PERRLA Oral: Moist Mucosa Neck: JVD, Bilateral Lungs: Rhonchi, Using Accessory Muscles Cardiovascular: Regular rate, No murmurs Abdomen: Distended, Rigid Extremities: Peripheral Pulses Normal Skin: No rashes Musculoskeletal: Muscle Wasting Psych/Mental Status: Appropriate Microbiology Past 72 Hours 07/16/19 16:30 Urine Catheter - Catheter Urine Culture - Final Culture exhibits no growth. 07/16/19 21:00 Sputum, Expectorated/Coughed Gram Stain - Final 07/16/19 21:00 Sputum, Expectorated/Coughed Respiratory Culture - Preliminary Streptococcus pneumoniae 07/19/19 06:35 Gastric Fluid/Contents Gastric Occult Blood - Final Occult Blood Positive 07/16/19 11:50 Blood Culture (Wb) - Anticubital Left Blood Culture - Preliminary No growth in 48 hours. 07/16/19 11:15 Blood Culture (Wb) - Arm Left Blood Culture - Preliminary No growth in 48 hours. 07/17/19 15:15 Urine Catheter - Barkley Urine Culture - Preliminary Culture exhibits no growth. 07/17/19 09:00 Sputum, Induced/Lukens Gram Stain - Final 07/16/19 16:30 Urine Catheter - Catheter Streptococcus pneumoniae Antigen (M - Final 07/16/19 16:30 Urine Catheter - Catheter Legionella Antigen - Final 07/16/19 11:50 Mucosa - Nose Respiratory Panel (PCR) - Final Laboratory Results 07/18/19 00:00: Hgb 10.6 L, Hct 33.1 L 07/18/19 13:55: Vancomycin Trough 15.0 07/18/19 16:30: Hgb 11.7 L, Hct 36.2 L 07/18/19 18:12: POC Glucose 103 07/19/19 00:04: POC Glucose 97 07/19/19 04:07: WBC 10.3, RBC 3.53 L, Hgb 10.8 L, Hct 34.5 L, MCV 97.7 H, MCH 30.6, MCHC 31.3 L, RDW Std Deviation 51.4 H, RDW Coeff of Jeanne 14.2, Plt Count 138 L, MPV 9.6, Immature Gran % (Auto) 2.800 H, Neut % (Auto) 88.3 H, Lymph % (Auto) 4.7 L, [place] % (Auto) 3.8, Eos % (Auto) 0.1, Baso % (Auto) 0.3, Absolute Neuts (auto) 9.1 H, Absolute Lymphs (auto) 0.49 L, Nucleated RBC % 0, Differential Comment SCANNED 07/19/19 04:07: Sodium 134 L, Potassium 5.2 H, Chloride 107, Carbon Dioxide 19.0 L, Anion Gap 8, BUN 61 H, Creatinine 4.37 H, Estim Creat Clear Calc 13.03, Est GFR (MDRD) Af Amer 17 L, Est GFR (MDRD) Non-Af 14 L, BUN/Creatinine Ratio 14.0, Glucose 98, Calcium 7.7 L 12/22/19 05:09: POC Glucose 92 07/19/19 11:28: POC Glucose 88 Current Medications Acetaminophen (Tylenol Liquid) 650 mg GT Q6H PRN PRN PRN Reason: Pain or Fever Chlorhexidine Gluconate () 15 ml PO BID [facility] Last Admin: 07/19/19 10:02 Dose: 15 ml Documented by: Chlorhexidine Gluconate () 1 each TOPICAL DAILY [facility] Last Admin: 07/19/19 00:53 Dose: 1 each Documented by: Glucagon () 1 mg IM .X1 PRN PRN Reason: Hypoglycemia Guaifenesin (Robitussin) 60 ml GT BID [facility] Last Admin: 07/19/19 10:03 Dose: 60 ml Documented by: Heparin Sodium (Porcine) (Heparin Na) 5,000 unit SC Q12 [facility] Last Admin: 07/19/19 10:02 Dose: 5,000 unit Documented by: Dextrose (Dextrose 10%-Water) 250 mls @ 999 mls/hr IV .Q16M PRN; Protocol PRN Reason: HYPOGLYCEMIA Piperacillin Sod/Tazobactam (Sod 3.375 gm/ Sodium Chloride) 50 mls @ 12.5 mls/hr IV Q8 [facility] Last Infusion: 07/19/19 09:50 Dose: Infused Documented by: Norepinephrine Bitartrate 8 mg (/ Sodium Chloride) 250 mls @ 9.375 mls/hr CONT INF .[id number] [facility]; Protocol Last Titration: 07/19/19 12:00 Dose: 4 mcg/min, 7.5 mls/hr Documented by: Propofol (Diprivan) 1,000 mg in 100 mls @ 4.674 mls/hr CONT INF .Q12H [facility]; Protocol Last Titration: 07/19/19 12:00 Dose: 5 mcg/kg/min, 2.3 mls/hr Documented by: Fentanyl () 100 mls @ 15 mls/hr IV UD [facility]; Protocol Last Titration: 07/19/19 11:00 Dose: 50 mcg/hr, 5 mls/hr Documented by: Amiodarone HCl 360 mg/ (Dextrose) 200 mls @ 16.667 mls/hr CONT INF .Q12H [facility] Last Infusion: 07/19/19 11:00 Dose: 0.5 mg/min, 16.7 mls/hr Documented by: Pantoprazole Sodium 40 mg/ (Sodium Chloride) 110 mls @ 330 mls/hr IV Q12 [facility] Last Infusion: 07/19/19 10:26 Dose: Infused Documented by: Insulin Human Lispro (Humalog Kwikpen (Bkc)) 0 unit SC Q6 [facility]; Protocol Last Admin: 07/19/19 11:33 Dose: Not Given Documented by: Ipratropium Lancing (Atrovent) 0.5 mg INHALATION Q4H.RT [facility] Last Admin: 07/19/19 10:53 Dose: 0.5 mg Documented by: Rosuvastatin Calcium (Crestor) 10 mg GT QHS [facility] Last Admin: 07/18/19 21:13 Dose: 10 mg Documented by: Sodium Chloride () 10 - 40 ml IV UD PRN PRN Reason: SALINE FLUSH Last Admin: 07/19/19 05:11 Dose: 10 ml Documented by: Assessment/Plan All Active Problems (Last Reviewed 07/14/19 @ 18:38 by Joan Charles) Severe sepsis (Acute) Community acquired pneumonia (Acute) 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) Atelectasis (Acute) 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) 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 now with ischemic ATN and Septic shock and acute hypoxic respiratory failure, present on admission secondary to multilobar community-acquired pneumonia: Patient is being admitted in ICU. Non oliguric MELISSA ATN MEREDITH class IV Acute kidney injury most likely prerenal with sepsis/ATN: Patient baseline creatinine is unknown, last one 1.2-1.4 in August 2013. 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 Lasix held..
[2019-07-19] MEDS: fentaNYL drip 100 ML 5 MCG IV (12:39)
--- NOTE | 2019-07-19 13:21 | CT_ITS ---
STUDY: CT ABDOMEN AND PELVIS WITH CONTRAST REASON FOR EXAM: Male, 79 years old. Abdominal distention, GI bleeding, sepsis RADIATION DOSAGE (If Supplied By Facility): CTDIvol = ( 18.15 ) mGy, DLP = ( 1176.58 ) mGycm TECHNIQUE: Transaxial images were obtained from the dome of the diaphragm to the symphysis pubis without oral contrast. Oral and amp; IV Gastrografin and amp; 100mL Isovue-300 was administered. Sagittal and coronal images were reconstructed. Individualized dose optimization techniques were used for this CT. COMPARISON: None. FINDINGS: The visualized lung bases demonstrate bibasilar consolidations/atelectasis. Bilateral pleural effusions, left more than right. The visualized portions of the heart are within normal limits. Cholelithiasis. No significant dilatation of the extrahepatic biliary system. Granulomatous calcifications in the liver and spleen. Normal pancreas. 1.2 cm left adrenal nodule. 6 mm cyst in the right kidney. Normal left kidney. Nasogastric tube extends into the stomach. 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 Mild diverticulosis of the colon. The appendix is not visualized . No bowel obstruction. Calcified abdominal aorta. Normal inferior vena cava. Normal retroperitoneum. Barkley catheter in a decompressed urinary bladder. Wall thickening of the urinary bladder cannot be excluded. Fatty density at the inguinal canals. Normal abdominal wall. Degenerative vertebral changes. Central depression of T12 at the superior endplate likely nonacute. CT/Abdomen/Pelvis WITH Contrast IMPRESSION: Bibasilar consolidations/atelectasis and pleural effusions. Cholelithiasis. Left adrenal nodule. Right renal cyst. Malrotation is suspected of the GI tract. No bowel obstruction. Fatty density at the inguinal canals. Electronically Signed: Pablo Hooper DO at 17:49 EST Tel [phone], Service support ,
--- NOTE | 2019-07-19 14:10 | RAD_ITS ---
STUDY: X-RAY CHEST REASON FOR EXAM: Male, 79 years old. 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 Endotracheal tube is stable. A nasogastric tube extends into the stomach. Right central line with tip at the mid SVC level. The lungs are expanded. Increasing opacity of the left upper lobe suggesting worsening infiltrate. Right basilar infiltrate appears stable. Possible small effusions bilaterally. Normal size heart. Normal mediastinum and josé miguel. Normal visualized pulmonary arteries. Normal visualized aortic arch and descending thoracic aorta. Degenerative changes of the thoracic spine. Normal visualized ribs, clavicles, and shoulders. There is no demonstrated abnormality of the visualized soft tissue structures of the upper abdomen. RAD/Chest 1 View (Portable) IMPRESSION: Worsening left upper lobe infiltrate. Bibasilar infiltrates. Electronically Signed: Pablo Hooper DO at 17:59 EST Tel [phone], Service support ,
--- NOTE | 2019-07-19 14:46 | CON.PCM_ITS ---
Reason for Consult Date of Consultation: 07/19/19 Reason for Consultation: sepsis-respiratory failure, renal failure, need for dialysis access History of Present Illness: The patient is a 79 year old M male who presented emergency department on July 16, 2019 with shortness of breath and hypoxemia. He has a known history of coronary bypass grafting, paroxysmal atrial fibrillation, and is status post aortic valve replacement. he was found to have acute respiratory failure and severe sepsis felt to be secondary to community-acquired pneumonia. When he presented he had an elevated lactic acid and demonstrated acute kidney injury. He also went into atrial fibrillation with rapid ventricular response. the patient continued to have progressive respiratory failure and required intubation. He is now requiring pressors. His creatinine has increased and his urine output is decreasing. I was consulted for emergent dialysis access. Consent was obtained from the family members wide spoken with prior to placing the dialysis catheter Past Medical History Past Medical History (Chronic Problems): Chronic Problems (Last Reviewed 07/14/19 @ 18:38 by Joan Charles) History of aortic stenosis (Chronic) ROSA to LAD, reverse SVG to OM and PDA of RCA along with AVR using 25 Andrew Awan valve, per Dr. Darrion Meyer, [facility] H/O aortic valve replacement (Chronic 05/22/18) ROSA to LAD, reverse SVG to OM and PDA of RCA along with AVR using 25 Andrew Awan valve, per Dr. Darrion Meyer, [facility] S/P CABG x 3 (Chronic 05/22/18) ROSA to LAD, reverse SVG to OM and PDA of RCA along with AVR using 25 Car pentier Awan valve, per Dr. Darrion Meyer, [facility] Hypertension (Chronic) Dyslipidemia (Chronic) Atherosclerosis of coronary artery of [place] heart without angina pectoris (Chronic) Medical History: Medical History (Last Reviewed 07/14/19 @ 18:38 by Joan Charles) Tachy-raissa syndrome (Acute) Onset Date: 05/24/18 I49.5 Noted on discharge summary from [facility] after CABG and AVR Atelectasis (Acute) J98.11 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) I97.89, I48.91 History of aortic stenosis (Chronic) Z86.79 ROSA to LAD, reverse SVG to OM and PDA of RCA along with AVR using 25 Andrew Awan valve, per Dr. Darrion Meyer, [facility] Hypertension (Chronic) I10 Dyslipidemia (Chronic) E78.5 Atherosclerosis of coronary artery of [place] heart without angina pectoris (Chronic) I25.10 Asthma J45.909 Diverticulitis K57.92 Eczema L30.9 Inguinal hernia K40.90 Bilateral pneumothorax Onset Date: 09/01/13 J93.9 Non-rheumatic aortic stenosis (Resolved) I35.0 Allergies atorvastatin Adverse Reaction (Verified 07/16/19 11:07) myalgias Home Medications: Ambulatory Orders Medication Instructions Recorded albuterol sulfate 90 mcg/actuation 2 puff INHALATION Q6H PRN 06/12/18 aerosol inhaler fluticasone 250 mcg-salmeterol 50 1 inh INHALATION BID 06/12/18 mcg/dose blistr powdr for inhalation metoprolol tartrate 50 mg tablet 50 mg PO BID 01/01/19 Multivitamin with Minerals 1 tab PO DAILY 07/16/19 [Multiple Vitamin] RX: Aspirin [Aspir-Low] 81 mg PO DAILY@0800 07/16/19 RX: Furosemide [Lasix] 20 mg PO BID 07/16/19 RX: Potassium Chloride 10 meq PO DAILY 07/16/19 RX: Rosuvastatin Calcium 10 mg PO DAILY 07/16/19 Surgical History: Surgical History (Last Reviewed 07/14/19 @ 18:38 by Joan Charles) H/O aortic valve replacement (Chronic) Onset Date: 05/22/18 Z95.2 ROSA to LAD, reverse SVG to OM and PDA of RCA along with AVR using 25 Andrew Awan valve, per Dr. Darrion Meyer, [facility] S/P CABG x 3 (Chronic) Onset Date: 05/22/18 Z95.1 ROSA to LAD, reverse SVG to OM and PDA of RCA along with AVR using 25 Andrew Awan valve, per Dr. 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 Surgical History: coronary bypass surgery Smoking Status: Former smoker - About 5 to 10 years states less than a pack per day Tobacco Use: Cigarettes, Cigars Alcohol: None Drugs: None - *Family History Paternal History Items: Heart Disease Review of Systems Unable to obtain accurate/complete ROS d/t: intubated and sedated Patient Problems: Active and Suspected Problems (Last Reviewed 07/14/19 @ 18:38 by Joan Charles) Severe sepsis (Acute) Community acquired pneumonia (Acute) - Physical Exam Vitals/I&O's: Vital Signs Temp Pulse Resp BP Pulse Ox 99.6 F H 88 12 108/48 L 93 07/19/19 12:00 07/19/19 14:00 07/19/19 14:00 07/19/19 14:00 07/19/19 14:00 Oxygen Flow Rate (L/min) 50 Oxygen Delivery Method Mechanical Ventilator Weight: 77.9 kg Body Mass Index (BMI) 25.4 Intake and Output for Last 24 Hours 07/17/19 07/18/19 07/19/19 23:59 23:59 23:59 Intake Total 4627.18 / 4756.83 1892.65 / 1978.14 769.74 / 769.74 Output Total 550 / 650 950 / 1050 385 / 385 Balance 4077.18 / 4106.83 942.65 / 928.14 384.74 / 384.74 General: - - intubated and sedated Neck: No JVD, Negative Carotid Bruits Lungs: - - coarse breath sounds bilaterally Cardiovascular: Regular rate, Regular Rhythm, - - distant sounds Abdomen: Soft, Non Tender, Distended Microbiology Past 72 Hours 07/17/19 09:00 Sputum, Induced/[place]uk[place] Gram Stain - Final 07/17/19 09:00 Sputum, Induced/[place] Respiratory Culture - Preliminary Possible Fungus 07/16/19 16:30 Urine Catheter - Catheter Urine Culture - Final Culture exhibits no growth. 07/16/19 21:00 Sputum, Expectorated/Coughed Gram Stain - Final 07/16/19 21:00 Sputum, Expectorated/Coughed Respiratory Culture - Preliminary Streptococcus pneumoniae 07/19/19 06:35 Gastric Fluid/Contents Gastric Occult Blood - Final Occult Blood Positive 07/16/19 11:50 Blood Culture (Wb) - Anticubital Left Blood Culture - Preliminary No growth in 48 hours. 07/16/19 11:15 Blood Culture (Wb) - Arm Left Blood Culture - Preliminary No growth in 48 hours. 07/17/19 15:15 Urine Catheter - [place] Urine Culture - Preliminary Culture exhibits no growth. 07/16/19 16:30 Urine Catheter - Catheter Streptococcus pneumoniae Antigen (M - Final 07/16/19 16:30 Urine Catheter - Catheter Legionella Antigen - Final 07/16/19 11:50 Mucosa - Nose Respiratory Panel (PCR) - Final Laboratory Results 07/18/19 00:00: Hgb 10.6 L, Hct 33.1 L 07/18/19 13:55: Vancomycin Trough 15.0 07/18/19 16:30: Hgb 11.7 L, Hct 36.2 L 07/18/19 18:12: POC Glucose 103 07/19/19 00:04: POC Glucose 97 07/19/19 04:07: WBC 10.3, RBC 3.53 L, Hgb 10.8 L, Hct 34.5 L, MCV 97.7 H, MCH 30.6, MCHC 31.3 L, RDW Std Deviation 51.4 H, RDW Coeff of Jeanne 14.2, Plt Count 138 L, MPV 9.6, Immature Gran % (Auto) 2.800 H, Neut % (Auto) 88.3 H, Lymph % (Auto) 4.7 L, [place] % (Auto) 3.8, Eos % (Auto) 0.1, Baso % (Auto) 0.3, Absolute Neuts (auto) 9.1 H, Absolute Lymphs (auto) 0.49 L, Nucleated RBC % 0, Differential Comment SCANNED 07/19/19 04:07: Sodium 134 L, Potassium 5.2 H, Chloride 107, Carbon Dioxide 19.0 L, Anion Gap 8, BUN 61 H, Creatinine 4.37 H, Estim Creat Clear Calc 13.03, Est GFR (MDRD) Af Amer 17 L, Est GFR (MDRD) Non-Af 14 L, BUN/Creatinine Ratio 14.0, Glucose 98, Calcium 7.7 L 07/19/19 05:09: POC Glucose 92 07/19/19 11:28: POC Glucose 88 Current Medications Acetaminophen (Tylenol Liquid) 650 mg GT Q6H PRN PRN PRN Reason: Pain or Fever Chlorhexidine Gluconate () 15 ml PO BID [facility] Last Admin: 07/19/19 10:02 Dose: 15 ml Documented by: Chlorhexidine Gluconate () 1 each TOPICAL DAILY [facility] Last Admin: 07/19/19 00:53 Dose: 1 each Documented by: Glucagon () 1 mg IM .X1 PRN PRN Reason: Hypoglycemia Guaifenesin (Robitussin) 60 ml GT BID [facility] Last Admin: 07/19/19 10:03 Dose: 60 ml Documented by: Heparin Sodium (Porcine) (Heparin Na) 5,000 unit SC Q12 [facility] Last Admin: 07/19/19 10:02 Dose: 5,000 unit Documented by: Dextrose (Dextrose 10%-Water) 250 mls @ 999 mls/hr IV .Q16M PRN; Protocol PRN Reason: HYPOGLYCEMIA Piperacillin Sod/Tazobactam (Sod 3.375 gm/ Sodium Chloride) 50 mls @ 12.5 mls/hr IV Q8 [facility] Last Infusion: 07/19/19 09:50 Dose: Infused Documented by: Norepinephrine Bitartrate 8 mg (/ Sodium Chloride) 250 mls @ 9.375 mls/hr CONT INF .[id number] [facility]; Protocol Last Titration: 07/19/19 14:00 Dose: 4 mcg/min, 7.5 mls/hr Documented by: Propofol (Diprivan) 1,000 mg in 100 mls @ 4.674 mls/hr CONT INF .Q12H [facility]; Protocol Last Titration: 07/19/19 14:00 Dose: 5 mcg/kg/min, 2.3 mls/hr Documented by: Fentanyl () 100 mls @ 15 mls/hr IV UD [facility]; Protocol Last Titration: 07/19/19 14:00 Dose: 50 mcg/hr, 5 mls/hr Documented by: Amiodarone HCl 360 mg/ (Dextrose) 200 mls @ 16.667 mls/hr CONT INF .Q12H [facility] Last Infusion: 07/19/19 14:00 Dose: 0.5 mg/min, 16.7 mls/hr Documented by: Pantoprazole Sodium 40 mg/ (Sodium Chloride) 110 mls @ 330 mls/hr IV Q12 [facility] Last Infusion: 07/19/19 10:26 Dose: Infused Documented by: Insulin Human Lispro (Humalog Kwikpen (Bkc)) 0 unit SC Q6 GIANNA; Protocol Last Admin: 07/19/19 11:33 Dose: Not Given Documented by: Ipratropium [place] (Atrovent) 0.5 mg INHALATION Q4H.RT GIANNA Last Admin: 07/19/19 14:18 Dose: 0.5 mg Documented by: Rosuvastatin Calcium (Crestor) 10 mg GT QHS GIANNA Last Admin: 07/18/19 21:13 Dose: 10 mg Documented by: Sodium Chloride () 10 - 40 ml IV UD PRN PRN Reason: SALINE FLUSH Last Admin: 07/19/19 05:11 Dose: 10 ml Documented by: Assessment/Plan All Active Problems (Last Reviewed 07/14/19 @ 18:38 by Joan Charles) Severe sepsis (Acute) Community acquired pneumonia (Acute) 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 the family understands the risks, benefits, complications and possible alternatives to the planned procedure and consent of the planned procedure. This is deemed an emergency procedure. a postprocedure chest x-ray will be obtained to verify proper placement and assure no pneumothorax occurs.
--- NOTE | 2019-07-19 14:53 | PCM.OPRPT ---
Report of Operation Date of Procedure: 07/19/19 Pre-Operative Diagnosis: sepsis worsening renal failure need for emergent dialysis Post-Operative Diagnosis: sepsis worsening renal failure need for emergent dialysis, successful right internal jugular dialysis catheter placement Surgery/Procedure Performed:: right internal jugular [place] curved dialysis catheter placement-19 cm length with ultrasound guidance casualty claims supervisor: None Type of Anesthesia:: Local Anesthesiologist: none - [id number] Description of Procedure: Right internal jugular dialysis catheter placement The right neck and chest were prepped and draped in the usual fashion. Local anesthetic was injected and ultrasound was used to identify the jugular vein. A airplane pilot commercial needle was inserted to the jugular vein under ultrasound guidance with return of venous blood. Next, under ultrasound guidance, a Seldinger needle was used to access the right internal jugular vein without difficulty. A guidewire was inserted and advanced the SVC/ RA region. Dilators were inserted over the wire. The dialysis catheter was lastly inserted over the wire and advanced. It was secured with 3-0 nylon suture. There was good return of venous blood with almost instantaneous filling of a 5 cc syringe and easy inflow of saline through the system. The catheter were flushed with saline, caps placed and a dressing applied. postprocedure chest X-ray was obtained which demonstrated good positioning of the catheter and no pneumothorax
[2019-07-19 18:05] LABS: Bedside Glucose 77 mg/dL (70-110)
--- NOTE | 2019-07-19 20:06 | DIALYSIS ---
HD x 2.5 hours complete. Tolerated tx fairly well. UF of 1500ml. Ran on 3k bath. Used right IJ catheter. Catheter closed with heparin per fill volume. Report was given to YUNIOR Arboleda.
[2019-07-19] MEDS: Heparin 10,000 UNITS/10 ML Vial IV (21:43)
[2019-07-19 23:45] LABS: Bedside Glucose 76 mg/dL (70-110)
[2019-07-20] VITALS (53 sets, daily range): BP systolic 80–151; BP diastolic 43–76; PULSE 57–103; RESP 10–24; TEMP 36.8–37.2; O2SAT 40–98
[2019-07-20] MEDS: Ipratropium 0.5 MG/2.5 ML SOLUTION INHALATION ×6 (03:50→22:50)
[2019-07-20 04:16] LABS: Absolute Lymphocyte Count 0.48 X10^3/uL (0.83-4.51); Absolute Neutrophil Count 9.2 X10^3/uL (2.0-7.7); Basophil# 0.03 X10^3/uL; Basophil% 0.3 % (0-1); Eosinophil# 0.01 X10^3/uL; Eosinophils% 0.1 % (0-5); Hematocrit 30.8 % (40-54); Lymphocyte # 0.48 X10^3/ul (4.0); Lymphocyte % 4.6 % (19-41); Mean Corp Hgb Conc 32.5 g/dL (32-36); Mean Corpuscular Hgb 30.9 pg (27.0-32.0); Mean Corpuscular Volume 95.1 fL (80-94); Mean Platelet Vol. 9.7 fl (6.2-12.0); Monocyte# 0.44 X10^3/uL; Monocyte% 4.2 % (0-10); NRBC Flagged by Analyzer 0 % (0-5); Neutrophil # 9.18 X10^3/uL (2.7-7.7); Neutrophil % 88.3 % (47-70); POSITIVE DIFFERENTIAL YES; Platelet Count 130 K/mm3 (150-450); RBC Distribution Width CV 14.4 % (11.6-14.6); RBC Distribution Width SD 50.4 fl (35.1-43.9); Red Blood Count 3.24 M/mm3 (4.6-6.2); White Blood Count 10.4 K/mm3 (4.4-11.0)
[2019-07-20 04:17] LABS: Differential Indicated SCAN CRITERIA MET
[2019-07-20 04:25] LABS: Anion Gap 10 (5-15); BUN 55 mg/dL (7-18); BUN/Creat Ratio 11.4 RATIO (10-20); Calcium,Total 7.3 mg/dL (8.5-10.1); Chloride 102 mmol/L (98-107); Creatinine, Serum 4.83 mg/dL (0.70-1.30); EST Glomerular Filtration Rate 13 mL/min (>60); Est Glom Filt Rate - Afr Amer 15 mL/min (>60); Estimated Creatinine Clearance 11.78 ml/min; Glucose 156 mg/dL (74-106); Sodium Level 133 mmol/L (136-145)
[2019-07-20 05:30] LABS: Differential Comment SCANNED
[2019-07-20 05:31] LABS: Bedside Glucose 86 mg/dL (70-110)
--- NOTE | 2019-07-20 06:21 | PCM.PN.INT ---
Subjective: The patient was seen and examined at the bedside this morning. Events from the last 24 hours have been reviewed. The patient is currently afebrile, hemodynamically stable and maintaining appropriate oxygen saturations on assist control mode mechanical ventilation with an FiO2 requirement of 40%. Due to the development of acute kidney injury, the patient was evaluated by nephrology yesterday who felt that hemodialysis was indicated. A hemodialysis line was subsequently placed and the patient underwent hemodialysis with 1.5 L of fluid removed. In addition, prior to hemodialysis and over concerns for the patient's distended abdomen, CT imaging was obtained. Malrotation of the GI tract was noted. However, there was no evidence of bowel obstruction. The patient has been successfully weaned off of Levophed as of 0200 hrs. this morning. He remains hemodynamically stable. The patient is currently doing well on his spontaneous breathing trial, but appears rather lethargic, despite sedation that is currently on hold. The dark/red output from his OG tube has improved. The patient also converted from atrial fibrillation to normal sinus rhythm. Objective: The patient's most recent lab work, culture data and imaging studies have all been personally reviewed. Surface echocardiogram revealed moderate concentric LVH with an ejection fraction of 65%. Right ventricular systolic pressure was estimated to be 40 mmHg. Strep and urine Legionella antigens were negative. Sputum culture was positive for Streptococcus pneumoniae. In addition, there was note of possible very rare fungus present as well too. Gastric occult blood was noted to be positive. General: - - Remains intubated and mechanically ventilated. Currently tolerating spontaneous mode mechanical ventilation. HEENT: Atraumatic, PERRLA, Normocephalic Oral: No Gingival or Mucosal Lesions/ Ulcerations, - - Endotracheal and OG tubes remain in place. Neck: Supple, No Nodes, Trachea Midline, - - Right IJ temporary hemodialysis catheter in place Lungs: No rhonchi, No wheeze, No rales, Diminished Cardiovascular: Regular rate, Regular Rhythm, Normal S1, Normal S2, Murmur, - - Normal sinus rhythm on telemetry Abdomen: Hypoactive Bowel Sounds, Distended Extremities: No clubbing, No cyanosis, Edema Skin: - - No significant change from previous. Musculoskeletal: No Tenderness to Palpation of Joints or Extremities Lymphatic: No Cervical, Supraclavicular, or Inguinal Adenopathy Neurological: - - No focal neurological deficits. The patient remains lethargic this morning but will follow some simple commands. Psych/Mental Status: Flat Affect Vital Signs Temp Pulse Resp BP Pulse Ox 98.4 F 75 19 H 137/56 H 94 07/20/19 04:00 07/20/19 06:00 07/20/19 06:00 07/20/19 06:00 07/20/19 06:00 Oxygen Flow Rate (L/min) 50 Oxygen Delivery Method Mechanical Ventilator Weight: 147 lb 11.355 oz Body Mass Index (BMI) 25.4 Intake and Output for Last 24 Hours 07/18/19 07/19/19 07/20/19 23:59 23:59 23:59 Intake Total 1892.65 / 1978.14 1701.24 / 1710.94 306.54 / 306.54 Output Total 950 / 1050 1095 / 1145 360 / 360 Balance 942.65 / 928.14 606.24 / 565.94 -53.46 / -53.46 Labs (Last 48 Hours) 07/18/19 07/18/19 07/18/19 00:00 04:45 04:45 WBC RBC Hgb 10.6 L Hct 33.1 L MCV MCH MCHC RDW Std Deviation RDW Coeff of Jeanne Plt Count MPV Immature Gran % (Auto) Neut % (Auto) Lymph % (Auto) [place] % (Auto) Eos % (Auto) Baso % (Auto) Absolute Neuts (auto) Absolute Lymphs (auto) Nucleated RBC % Differential Comment Sodium Potassium Chloride Carbon Dioxide Anion Gap BUN Creatinine Estim Creat Clear Calc Est GFR (MDRD) Af Amer Est GFR (MDRD) Non-Af BUN/Creatinine Ratio Glucose Hemoglobin A1c 6.3 Calcium Total Bilirubin Direct Bilirubin AST ALT Alkaline Phosphatase Troponin I 1.030 H* B-Natriuretic Peptide Total Protein Albumin Globulin Vancomycin Trough Hep Bs Antigen Hep Bs Antibody POC Glucose 07/18/19 07/18/19 07/18/19 04:45 04:45 06:16 WBC RBC Hgb Hct MCV MCH MCHC RDW Std Deviation RDW Coeff of Jeanne Plt Count MPV Immature Gran % (Auto) Neut % (Auto) Lymph % (Auto) [place] % (Auto) Eos % (Auto) Baso % (Auto) Absolute Neuts (auto) Absolute Lymphs (auto) Nucleated RBC % Differential Comment Sodium Potassium Chloride Carbon Dioxide Anion Gap BUN Creatinine Estim Creat Clear Calc Est GFR (MDRD) Af Amer Est GFR (MDRD) Non-Af BUN/Creatinine Ratio Glucose Hemoglobin A1c Calcium Total Bilirubin 1.10 H Direct Bilirubin 0.79 H AST 41 H ALT 27 Alkaline Phosphatase 58 Troponin I B-Natriuretic Peptide 534.1 H Total Protein 6.2 L Albumin 2.0 L Globulin 4.2 Vancomycin Trough Hep Bs Antigen Hep Bs Antibody POC Glucose 104 07/18/19 07/18/19 07/18/19 12:06 13:55 16:30 WBC RBC Hgb 11.7 L Hct 36.2 L MCV MCH MCHC RDW Std Deviation RDW Coeff of Jeanne Plt Count MPV Immature Gran % (Auto) Neut % (Auto) Lymph % (Auto) [place] % (Auto) Eos % (Auto) Baso % (Auto) Absolute Neuts (auto) Absolute Lymphs (auto) Nucleated RBC % Differential Comment Sodium Potassium Chloride Carbon Dioxide Anion Gap BUN Creatinine Estim Creat Clear Calc Est GFR (MDRD) Af Amer Est GFR (MDRD) Non-Af BUN/Creatinine Ratio Glucose Hemoglobin A1c Calcium Total Bilirubin Direct Bilirubin AST ALT Alkaline Phosphatase Troponin I B-Natriuretic Peptide Total Protein Albumin Globulin Vancomycin Trough 15.0 Hep Bs Antigen Hep Bs Antibody POC Glucose 98 07/18/19 07/19/19 07/19/19 18:12 00:04 04:07 WBC 10.3 RBC 3.53 L Hgb 10.8 L Hct 34.5 L MCV 97.7 H MCH 30.6 MCHC 31.3 L RDW Std Deviation 51.4 H RDW Coeff of Jeanne 14.2 Plt Count 138 L MPV 9.6 Immature Gran % (Auto) 2.800 H Neut % (Auto) 88.3 H Lymph % (Auto) 4.7 L [place] % (Auto) 3.8 Eos % (Auto) 0.1 Baso % (Auto) 0.3 Absolute Neuts (auto) 9.1 H Absolute Lymphs (auto) 0.49 L Nucleated RBC % 0 Differential Comment SCANNED Sodium Potassium Chloride Carbon Dioxide Anion Gap BUN Creatinine Estim Creat Clear Calc Est GFR (MDRD) Af Amer Est GFR (MDRD) Non-Af BUN/Creatinine Ratio Glucose Hemoglobin A1c Calcium Total Bilirubin Direct Bilirubin AST ALT Alkaline Phosphatase Troponin I B-Natriuretic Peptide Total Protein Albumin Globulin Vancomycin Trough Hep Bs Antigen Hep Bs Antibody POC Glucose 103 97 1207/19/19 07/19/19 04:07 05:09 11:28 WBC RBC Hgb Hct MCV MCH MCHC RDW Std Deviation RDW Coeff of Jeanne Plt Count MPV Immature Gran % (Auto) Neut % (Auto) Lymph % (Auto) [place] % (Auto) Eos % (Auto) Baso % (Auto) Absolute Neuts (auto) Absolute Lymphs (auto) Nucleated RBC % Differential Comment Sodium 134 L Potassium 5.2 H Chloride 107 Carbon Dioxide 19.0 L Anion Gap 8 BUN 61 H Creatinine 4.37 H Estim Creat Clear Calc 13.03 Est GFR (MDRD) Af Amer 17 L Est GFR (MDRD) Non-Af 14 L BUN/Creatinine Ratio 14.0 Glucose 98 Hemoglobin A1c Calcium 7.7 L Total Bilirubin Direct Bilirubin AST ALT Alkaline Phosphatase Troponin I B-Natriuretic Peptide Total Protein Albumin Globulin Vancomycin Trough Hep Bs Antigen Hep Bs Antibody POC Glucose 92 88 07/19/19 07/19/19 07/19/19 18:02 18:21 23:35 WBC RBC Hgb Hct MCV MCH MCHC RDW Std Deviation RDW Coeff of Jeanne Plt Count MPV Immature Gran % (Auto) Neut % (Auto) Lymph % (Auto) [place] % (Auto) Eos % (Auto) Baso % (Auto) Absolute Neuts (auto) Absolute Lymphs (auto) Nucleated RBC % Differential Comment Sodium Potassium Chloride Carbon Dioxide Anion Gap BUN Creatinine Estim Creat Clear Calc Est GFR (MDRD) Af Amer Est GFR (MDRD) Non-Af BUN/Creatinine Ratio Glucose Hemoglobin A1c Calcium Total Bilirubin Direct Bilirubin AST ALT Alkaline Phosphatase Troponin I B-Natriuretic Peptide Total Protein Albumin Globulin Vancomycin Trough Hep Bs Antigen Pending Hep Bs Antibody Pending POC Glucose 77 76 07/20/19 07/20/19 07/20/19 04:00 04:00 05:19 WBC 10.4 RBC 3.24 L Hgb 10.0 L Hct 30.8 L MCV 95.1 H MCH 30.9 MCHC 32.5 RDW Std Deviation 50.4 H RDW Coeff of Jeanne 14.4 Plt Count 130 L MPV 9.7 Immature Gran % (Auto) 2.500 H Neut % (Auto) 88.3 H Lymph % (Auto) 4.6 L [place] % (Auto) 4.2 Eos % (Auto) 0.1 Baso % (Auto) 0.3 Absolute Neuts (auto) 9.2 H Absolute Lymphs (auto) 0.48 L Nucleated RBC % 0 Differential Comment SCANNED Sodium 133 L Potassium 5.0 Chloride 102 Carbon Dioxide 21.0 Anion Gap 10 BUN 55 H Creatinine 4.83 H Estim Creat Clear Calc 11.78 Est GFR (MDRD) Af Amer 15 L Est GFR (MDRD) Non-Af 13 L BUN/Creatinine Ratio 11.4 Glucose 156 H Hemoglobin A1c Calcium 7.3 L Total Bilirubin Direct Bilirubin AST ALT Alkaline Phosphatase Troponin I B-Natriuretic Peptide Total Protein Albumin Globulin Vancomycin Trough Hep Bs Antigen Hep Bs Antibody POC Glucose 86 Microbiology 07/17/19 09:00 Sputum, Induced/[place] Gram Stain - Final 07/17/19 09:00 Sputum, Induced/[place] Respiratory Culture - Preliminary Possible Fungus 07/16/19 16:30 Urine Catheter - Catheter Urine Culture - Final Culture exhibits no growth. 07/16/19 21:00 Sputum, Expectorated/Coughed Gram Stain - Final 07/16/19 21:00 Sputum, Expectorated/Coughed Respiratory Culture - Preliminary Streptococcus pneumoniae 07/19/19 06:35 Gastric Fluid/Contents Gastric Occult Blood - Final Occult Blood Positive 07/16/19 11:50 Blood Culture (Wb) - Anticubital Left Blood Culture - Preliminary No growth in 48 hours. 07/16/19 11:15 Blood Culture (Wb) - Arm Left Blood Culture - Preliminary No growth in 48 hours. 07/17/19 15:15 Urine Catheter - [place] Urine Culture - Preliminary Culture exhibits no growth. Clinical Impression(s) from Imaging Studies Chest X-Ray 07/17/19 06:43 IMPRESSION: Progressive left upper lobe infiltrate. Electronically Signed: Behzad Jimenez, at 8:27 EST , Service support , Chest X-Ray 07/17/19 08:33 IMPRESSION: The tip of the endotracheal tube is at 2.1 cm proximal to the donaldo. The tip of the orogastric tube is in the distal stomach. Stable opacification in the left hemithorax as well as increased markings at the right lung base. Electronically Signed: Behzad Jimenez, at 10:02 EST , Service support , Chest X-Ray 07/17/19 12:34 IMPRESSION: A right-sided PICC line catheter has been placed. The tip is at the junction of the superior vena cava and right atrium. The tip of the endotracheal tube should be withdrawn approximately 2 cm. Stable appearance of both lungs. Electronically Signed: Behzad Barbara, at 13:16 EST , Service support , KUB X-Ray 07/18/19 08:24 IMPRESSION: 1. Mildly reduced patchy airspace disease of the left lung. Small layering right effusion. 2. NG tube tip overlying the distal stomach. Otherwise no evidence of definitive bowel dilatation or air-fluid levels. Electronically Signed: Nader Rodney DO at 9:30 EST , Service support , Abdomen/Pelvis CT 07/19/19 13:21 IMPRESSION: Bibasilar consolidations/atelectasis and pleural effusions. Cholelithiasis. Left adrenal nodule. Right renal cyst. Malrotation is suspected of the GI tract. No bowel obstruction. Fatty density at the inguinal canals. Electronically Signed: Pablo Hooper DO at 17:49 EST Tel [phone], Service support , Chest X-Ray 07/19/19 14:10 IMPRESSION: Worsening left upper lobe infiltrate. Bibasilar infiltrates. 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 Continue patient on pressure support mode of mechanical ventilation this morning. Continue to hold all sedating medications for now. 2. Continue Zosyn. Will obtain infectious diseases consultation. 3. Continue current medical management of atrial fibrillation per cardiology recommendations. 4. Continue hemodialysis per nephrology recommendations. 5. Start tube feeds today, if the patient remains intubated. 6. Continue GI prophylaxis. 7. Continue to hold Eliquis. 8. The patient's propofol will be discontinued and the patient will be started on Precedex to facilitate weaning from invasive mechanical ventilatory support. 9. If tolerated, patient to remain on spontaneous mode of mechanical ventilation today. Transition back to assist control for overnight hours. IMPRESSIONS: 1. Acute hypoxemic respiratory failure secondary to severe community-acquired pneumonia Unfortunately, the patient continued to decompensate clinically despite the use of noninvasive positive pressure ventilatory support. The patient's respiratory status is also complicated by the fact that he is currently in atrial fibrillation with a rapid ventricular rate. The patient did require intubation on the morning of July 17. The patient has improved from a respiratory status with treatment of his underlying infection and with volume optimization. He is currently tolerating pressure support mode mechanical ventilation, which will be continued today. I do suspect that the patient is likely still too weak to be considered for extubation today. Therefore, Precedex will be started and the patient will be continued on spontaneous mode of mechanical ventilation today. He will be placed back on assist control for overnight hours with plans to repeat spontaneous breathing trial in the morning. 2. Severe sepsis likely secondary to community-acquired pneumonia Continue current supportive measures including invasive mechanical ventilatory support and current antimicrobial coverage. The patient is currently growing Streptococcus pneumoniae and there is some note of possible fungus on his second sputum culture from July 17. Therefore, we will plan to obtain an infectious diseases consultation today. 3. Distributive shock Resolved. The patient became hypotensive following intubation and subsequent initiation of sedative medications. I cannot discount the possibility that a component of the patient's hemodynamic instability may also be secondary to his underlying dysrhythmia and elevated ventricular rate. The patient as of this morning has been weaned from vasopressor support. He remains hemodynamically stable off of sedative medications. 4. Acute kidney injury Possibly secondary to ischemic ATN in the setting of hemodynamic instability due to the patient's underlying infectious process, atrial fibrillation with rapid ventricular rate and sedation related hypotension versus possible abdominal compartment syndrome. A CT abdomen/pelvis revealed no evidence of an acute intra-abdominal process. The patient did require hemodialysis initiation on July 19. Nephrology is currently following. Will defer ongoing hemodialysis need to nephrology accordingly. 5. Paroxysmal atrial fibrillation with rapid ventricular rate/coronary artery disease status post bypass/aortic valve replacement Resolved. The patient converted from atrial fibrillation back to sinus rhythm with underlying medical management and treatment of his infection, as noted above. Cardiology is following. Continue rate/rhythm control strategy per recommendations. TIME: 40 minutes of critical care time, independent of procedures, was spent addressing the patient's acute hypoxemic respiratory failure, severe sepsis secondary to community-acquired pneumonia, distributive shock, acute kidney injury, paroxysmal atrial fibrillation with rapid ventricular rate, review of all data and collaboration with the care team. ([id number]) Code Visit 9xxxx: [id number] Critical care first hour
--- NOTE | 2019-07-20 08:09 | RAD_ITS ---
STUDY: X-RAY CHEST REASON FOR EXAM: Male, 79 years old. CXR FOR LINE PLACEMENT. TECHNIQUE: Single AP portable view of the chest. COMPARISON: 07/19/2019 FINDINGS: Endotracheal tube, nasogastric tube, right internal jugular temporary dialysis catheter, and right upper extremity PICC all of which are unchanged. Status post heart valve replacement surgery. Some decrease in alveolar opacity in the upper left lung consistent with improved left upper lobe pneumonia. Poor inspiration with some bibasilar atelectasis There is no demonstrated pleural abnormality. There is moderate cardiac enlargement. Normal mediastinum and josé miguel. Normal visualized pulmonary arteries. Normal visualized aortic arch and descending thoracic aorta. Normal visualized thoracic spine. Normal visualized ribs, clavicles, and shoulders. There is no demonstrated abnormality of the visualized soft tissue structures of the upper abdomen. RAD/CXR for Line Placement IMPRESSION: 1. Endotracheal tube, nasogastric tube, right internal jugular temporary dialysis catheter, and right upper extremity PICC all of which are unchanged. 2. Improved left upper lobe pneumonia. 3. Poor inspiration with some bibasilar atelectasis. Electronically Signed: Moe Elam MD at 10:10 EST Tel , Service support ,
--- NOTE | 2019-07-20 08:18 | EKG12_ITS ---
Test Reason : RHYTHM CHANGE Blood Pressure : / mmHG Vent. Rate : 074 BPM Atrial Rate : 074 BPM P-R Int : 222 ms QRS Dur : 088 ms QT Int : 364 ms P-R-T Axes : 052 064 069 degrees QTc Int : 404 ms Sinus rhythm with 1st degree A-V block ST & T wave abnormality, consider anterior ischemia Abnormal ECG Confirmed by SHAHEEN VIDAL, WES ([id number]), medical editor PRINCE FALK ([id number]) on 07/21/2019 9:51:14 AM Referred By: Dinh Galan Confirmed By:WES JAMISON MD
--- NOTE | 2019-07-20 08:25 | PN.CARD_ITS ---
Subjectve: Patient remains intubated, sedated, unresponsive, hemodialysis started yesterday. Patient was in a junctional rhythm, which converted to normal sinus rhythm with the assistance of IV amiodarone and IV digoxin. Hemodynamically stable at this time. Blood cultures negative thus far. Objective: Vital Signs Temp Pulse Resp BP Pulse Ox 98.4 F 73 10 L 111/49 L 95 07/20/19 04:00 07/20/19 08:00 07/20/19 08:00 07/20/19 08:00 07/20/19 08:00 Oxygen Flow Rate (L/min) 50 Oxygen Delivery Method Mechanical Ventilator Weight: 147 lb 11.355 oz Body Mass Index (BMI) 25.4 Intake and Output for Last 24 Hours 07/18/19 07/19/19 07/20/19 23:59 23:59 23:59 Intake Total 1892.65 / 1978.14 1701.24 / 1710.94 429.77 / 429.77 Output Total 950 / 1050 1095 / 1145 360 / 360 Balance 942.65 / 928.14 606.24 / 565.94 69.77 / 69.77 General: Awake, Alert, Oriented x 3 HEENT: PERRL, EOMI, Sclera Non Icteric Neck: Supple, Good ROM, No Lymph Node Enlargement Lungs: Clear to auscultation Cardiovascular: Regular Rhythm, Normal S1, Normal S2, No Murmurs, No Rubs, No Gallops Vascular: No Carotid Bruits, Normal Femoral Pulses, Normal Radial Pulses, Normal Dorsalis Pedal Pulse, Normal Posterior Tibial Pulses Abdomen: Bowel Sounds Present, Soft, Non Tender, No HSM, No Organomegaly Extremities: No Cyanosis, No Clubbing, No edema Neurological: No Focal Motor or Sensory Deficit 07/20/19 04:00: WBC 10.4, RBC 3.24 L, Hgb 10.0 L, Hct 30.8 L, MCV 95.1 H, MCH 30.9, MCHC 32.5, Plt Count 130 L, MPV 9.7, Immature Gran % (Auto) 2.500 H, Neut % (Auto) 88.3 H, Lymph % (Auto) 4.6 L, [place] % (Auto) 4.2, Eos % (Auto) 0.1, Baso % (Auto) 0.3, Absolute Neuts (auto) 9.2 H, Nucleated RBC % 0 07/20/19 04:00: Sodium 133 L, Potassium 5.0, Chloride 102, Carbon Dioxide 21.0, Anion Gap 10, BUN 55 H, Creatinine 4.83 H, Est GFR (MDRD) Af Amer 15 L, Est GFR (MDRD) Non-Af 13 L, BUN/Creatinine Ratio 11.4, Glucose 156 H, Calcium 7.3 L Rhythm: EKG: Pending ECHO: Stress Test: Cardiac Cath: PCI: CT Surgery: Holter monitor: EPS: PPM: CXR: Pneumonic infiltrate with air bronchograms, right lung relatively okay. Chest CT Scan: Medical Necessity - Tobacco Use Smoking Status: Former smoker - About 5 to 10 years states less than a pack per day Tobacco Use: Cigarettes, Cigars Assessment/Plan 1. Atrial fibrillation: The patient developed atrial fibrillation most likely as a result of his acute illness, with rapid ventricular response initially refractory to IV amiodarone. In addition the patient has a significant left- sided pneumonia, which is being treated with broad-spectrum antibiotics. Unfortunately his respiratory situation deteriorated, and patient has been intubated since 07/17/2019. Patient's heart rate slowed down with 500 mcg of IV digoxin superimposed on IV amiodarone. He is now converted to normal sinus rhythm. We will obtain an EKG to check his QT corrected interval and document his rhythm today. Would recommend continuing IV amiodarone at current rate for 1 more day his QT corrected interval is abnormally long. Patient is already on Eliquis therapy for paroxysmal atrial fibrillation and would recommend continuing this. 2. Aortic valve replacement: Patient has a history of bioprosthetic aortic valve replacement and his recent echocardiogram was outlined above. Repeat [facility] echocardiogram shows normal functioning aortic valve replacement, without evidence of bacterial vegetation or abscess. Blood cultures thus far have been negative. His white count is actually within normal limits so it is doubtful the patient has endocarditis. 3. Coronary artery disease: Patient is a history of coronary disease status post three-vessel bypass surgery. The patient's atrial fibrillation demonstrated anterolateral ST segment depression which may be LVH with repolarization abnormality. Troponin series had a maximum of 1.0, and has had no sustained ventricular arrhythmias noted. Patient may require diagnostic coronary angiogram once his respiratory status has resolved. 4. Hyperlipidemia: Continue statin based medications such as rosuvastatin. 5. Acute on chronic renal failure: The patient developed anuric status, requiring right IJ double-lumen catheter for dialysis. Hemodialysis completed, which may have assisted with correction of his rhythm as well. Continue hemodialysis for fluid management and blood purification. 6. Discussed with Dr. Bolivar. Thank you very much for the opportunity to participate in the cardiac care of your patient. Guarded prognosis. Code Visit Inpatient E&M: 05278 Subs Hosp L3
[2019-07-20] MEDS: TITRATION PARAMETER CHANGE 1 EACH IV (09:37)
[2019-07-20] MEDS: Chlorhexidine 15 ML PO ×2 (09:38→22:02)
[2019-07-20] MEDS: Heparin Injection (Vial) 5,000 UNIT/ML VIAL 5000 UNIT SC ×2 (09:38→21:57)
[2019-07-20] MEDS: CHLORHEXIDINE GLUC 2% CLOTH 1 EACH TOWELETTE TOPICAL (09:44)
[2019-07-20 09:57] LABS: Hepatitis B Surface Antibody Non-Reactive; Hepatitis B Surface Antigen Non-Reactive (Nonreactive)
--- NOTE | 2019-07-20 10:46 | PCM.HP.ID ---
Problem List (1) Severe sepsis Status: Acute Reason for Consult: pneumonia Consulted by: Dr. Bolivar History of Present Illness: The patient is a 79 year old M presented 07/16 with acute onset of cough, SOB, hypoxia. Seen in cardio office, sent to ED. Admitted to icu with severe sepsis, resp failure. He required intubation, initially given vanc/zosyn/levaquin. Now narrowed to unasyn, showing improvement. Remains on vent, unable to provide history. ROS unobtainable. - Medical History Past Medical History (Chronic Problems): Chronic Problems (Last Reviewed 07/14/19 @ 18:38 by Joan Charles) History of aortic stenosis (Chronic) ROSA to LAD, reverse SVG to OM and PDA of RCA along with AVR using 25 Andrew Awan valve, per Dr. Darrion Meyer, [facility] H/O aortic valve replacement (Chronic 05/22/18) ROSA to LAD, reverse SVG to OM and PDA of RCA along with AVR using 25 Andrew Awan valve, per Dr. 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 Darrion Meyer, [facility] Hypertension (Chronic) Dyslipidemia (Chronic) Atherosclerosis of coronary artery of [place] heart without angina pectoris (Chronic) Allergies/Adverse Reactions: Allergies atorvastatin Adverse Reaction (Verified 07/16/19 11:07) myalgias Home Medications: Ambulatory Orders Medication Instructions Recorded albuterol sulfate 90 mcg/actuation 2 puff INHALATION Q6H PRN 06/12/18 aerosol inhaler fluticasone 250 mcg-salmeterol 50 1 inh INHALATION BID 06/12/18 mcg/dose blistr powdr for inhalation metoprolol tartrate 50 mg tablet 50 mg PO BID 01/01/19 Aspirin [Aspir-Low] 81 mg PO DAILY@0800 07/16/19 Furosemide [Lasix] 20 mg PO BID 07/16/19 Multivitamin with Minerals 1 tab PO DAILY 07/16/19 [Multiple Vitamin] Potassium Chloride 10 meq PO DAILY 07/16/19 Rosuvastatin Calcium 10 mg PO DAILY 07/16/19 - Social History SMOKING STATUS:: Former smoker Vital Signs Temp Pulse Resp BP Pulse Ox 98.4 F 73 10 L 111/49 L 95 07/20/19 04:00 07/20/19 08:00 07/20/19 08:00 07/20/19 08:00 07/20/19 08:00 Oxygen Flow Rate (L/min) 50 Oxygen Delivery Method Mechanical Ventilator Weight: 77 kg Body Mass Index (BMI) 25.4 Microbiology Past 72 Hours 07/17/19 09:00 Gram Stain - Final Sputum, Induced/Lukens Respiratory Culture - Preliminary Possible Fungus 07/16/19 21:00 Gram Stain - Final Sputum, Expectorated/Coughed Respiratory Culture - Preliminary Streptococcus pneumoniae 07/16/19 16:30 Urine Culture - Final Urine Catheter - Catheter Culture exhibits no growth. 07/19/19 06:35 Gastric Occult Blood - Final Gastric Fluid/Contents Occult Blood Positive 07/16/19 11:50 Blood Culture - Preliminary Blood Culture (Wb) - Anticubital Left No growth in 48 hours. 07/16/19 11:15 Blood Culture - Preliminary Blood Culture (Wb) - Arm Left No growth in 48 hours. 07/17/19 15:15 Urine Culture - Preliminary Urine Catheter - Barkley Culture exhibits no growth. Laboratory Tests Past 24 Hrs 07/19/19 07/20/19 07/20/19 18:21 04:00 04:00 WBC 10.4 RBC 3.24 L Hgb 10.0 L Hct 30.8 L MCV 95.1 H MCH 30.9 MCHC 32.5 RDW Std Deviation 50.4 H RDW Coeff of Jeanne 14.4 Plt Count 130 L MPV 9.7 Immature Gran % (Auto) 2.500 H Neut % (Auto) 88.3 H Lymph % (Auto) 4.6 L [place] % (Auto) 4.2 Eos % (Auto) 0.1 Baso % (Auto) 0.3 Absolute Neuts (auto) 9.2 H Absolute Lymphs (auto) 0.48 L Nucleated RBC % 0 Differential Comment SCANNED Sodium 133 L Potassium 5.0 Chloride 102 Carbon Dioxide 21.0 Anion Gap 10 BUN 55 H Creatinine 4.83 H Estim Creat Clear Calc 11.78 Est GFR (MDRD) Af Amer 15 L Est GFR (MDRD) Non-Af 13 L BUN/Creatinine Ratio 11.4 Glucose 156 H Calcium 7.3 L Hep Bs Antigen Non-Reactive Hep Bs Antibody Non-Reactive - Other Studies Radiology: [] reviewed Other Studies: [] Route of nutrition/ use of supplements: [] Nutritional Intake: [] IV Site: [] Barkley Catheter: [] - Physical Exam General: No apparent distress, - - intbuated, eyes open HEENT: Atraumatic, PERRLA, EOMI Neck: Supple, No Nodes Lungs: Clear to auscultation, Diminished Cardiovascular: Regular rate, Regular Rhythm, No murmurs Abdomen: Soft, Non Tender, Non-Distended Extremities: No edema Skin: No rashes IV Site: Peripheral, without redness Musculoskeletal: No Tenderness to Palpation of Joints or Extremities - Assessment/Plan Antibiotics: [] Assessment/Plan: [] Active and Suspected Problems (Last Reviewed 07/14/19 @ 18:38 by Joan Charles) Severe sepsis (Acute) Community acquired pneumonia (Acute) Sputum cx with s.pneumo. Repeat sputum showed very rare fungus; doubt this fungus is a true pathogen given amount of growth and overall clinical improvement without antifungal therapy. Cont unasyn. GFR still worsening. Wbc normal. Remains on vent. Will follow, thank you, d/w Dr. Bolivar
[2019-07-20] MEDS: Vital AF 1.2 Cal Liquid 1,000 ML 60 ML GT (10:51)
--- NOTE | 2019-07-20 11:08 | PCM.PN.REN ---
Patient Problems: Active and Suspected Problems (Last Reviewed 07/14/19 @ 18:38 by Joan Charles) Severe sepsis (Acute) Community acquired pneumonia (Acute) Subjective: No new events. Levophed has been stopped. Urine output is low. Last dialysis was yesterday. - Physical Exam Vitals/I&O's: Vital Signs Temp Pulse Resp BP Pulse Ox 98.4 F 73 10 L 111/49 L 95 07/20/19 04:00 07/20/19 08:00 07/20/19 08:00 07/20/19 08:00 07/20/19 08:00 Oxygen Flow Rate (L/min) 50 Oxygen Delivery Method Mechanical Ventilator Weight: 77 kg Body Mass Index (BMI) 25.4 Intake and Output for Last 24 Hours 07/18/19 07/19/19 07/20/19 23:59 23:59 23:59 Intake Total 1892.65 / 1978.14 1701.24 / 1710.94 557.17 / 557.17 Output Total 950 / 1050 1095 / 1145 360 / 360 Balance 942.65 / 928.14 606.24 / 565.94 197.17 / 197.17 General: No apparent distress HEENT: Atraumatic, PERRLA, EOMI, Normocephalic Neck: Supple, No JVD, Negative Carotid Bruits Lungs: Normal air movement, Rhonchi Cardiovascular: Regular rate, No murmurs Abdomen: Bowel Sounds Present, Soft, Non Tender Extremities: No edema, Capillary Refill Less than 3 Seconds Skin: No rashes, No breakdown Musculoskeletal: No Tenderness to Palpation of Joints or Extremities Microbiology Past 72 Hours 07/17/19 15:15 Urine Catheter - Barkley Urine Culture - Final Culture exhibits no growth. 07/17/19 09:00 Sputum, Induced/Lukens Gram Stain - Final 07/17/19 09:00 Sputum, Induced/Lukens Respiratory Culture - Preliminary Possible Fungus 07/16/19 21:00 Sputum, Expectorated/Coughed Gram Stain - Final 07/16/19 21:00 Sputum, Expectorated/Coughed Respiratory Culture - Preliminary Streptococcus pneumoniae 07/16/19 16:30 Urine Catheter - Catheter Urine Culture - Final Culture exhibits no growth. 07/19/19 06:35 Gastric Fluid/Contents Gastric Occult Blood - Final Occult Blood Positive 07/16/19 11:50 Blood Culture (Wb) - Anticubital Left Blood Culture - Preliminary No growth in 48 hours. 07/16/19 11:15 Blood Culture (Wb) - Arm Left Blood Culture - Preliminary No growth in 48 hours. Laboratory Results 07/19/19 11:28: POC Glucose 88 07/19/19 18:02: POC Glucose 77 07/19/19 18:21: Hep Bs Antigen Non-Reactive, Hep Bs Antibody Non-Reactive 07/19/19 23:35: POC Glucose 76 07/20/19 04:00: WBC 10.4, RBC 3.24 L, Hgb 10.0 L, Hct 30.8 L, MCV 95.1 H, MCH 30.9, MCHC 32.5, RDW Std Deviation 50.4 H, RDW Coeff of Jeanne 14.4, Plt Count 130 L, MPV 9.7, Immature Gran % (Auto) 2.500 H, Neut % (Auto) 88.3 H, Lymph % (Auto) 4.6 L, [place] % (Auto) 4.2, Eos % (Auto) 0.1, Baso % (Auto) 0.3, Absolute Neuts (auto) 9.2 H, Absolute Lymphs (auto) 0.48 L, Nucleated RBC % 0, Differential Comment SCANNED 07/20/19 04:00: Sodium 133 L, Potassium 5.0, Chloride 102, Carbon Dioxide 21.0, Anion Gap 10, BUN 55 H, Creatinine 4.83 H, Estim Creat Clear Calc 11.78, Est GFR (MDRD) Af Amer 15 L, Est GFR (MDRD) Non-Af 13 L, BUN/Creatinine Ratio 11.4, Glucose 156 H, Calcium 7.3 L 07/20/19 05:19: POC Glucose 86 Current Medications Acetaminophen (Tylenol Liquid) 650 mg GT Q6H PRN PRN PRN Reason: Pain or Fever Chlorhexidine Gluconate () 15 ml PO BID [facility] Last Admin: 07/20/19 09:38 Dose: 15 ml Documented by: Chlorhexidine Gluconate () 1 each TOPICAL DAILY [facility] Last Admin: 07/20/19 09:44 Dose: 1 each Documented by: Glucagon () 1 mg IM .X1 PRN PRN Reason: Hypoglycemia Heparin Sodium (Porcine) (Heparin Na) 5,000 unit SC Q12 [facility] Last Admin: 07/20/19 09:38 Dose: 5,000 unit Documented by: Dextrose (Dextrose 10%-Water) 250 mls @ 999 mls/hr IV .Q16M PRN; Protocol PRN Reason: HYPOGLYCEMIA Fentanyl () 100 mls @ 15 mls/hr IV UD GIANNA; Protocol Last Admin: 07/20/19 09:45 Dose: Not Given Documented by: Amiodarone HCl 360 mg/ (Dextrose) 200 mls @ 16.667 mls/hr CONT INF .Q12H [facility] Last Admin: 07/20/19 09:16 Dose: Not Given Documented by: Pantoprazole Sodium 40 mg/ (Sodium Chloride) 110 mls @ 330 mls/hr IV Q12 [facility] Last Infusion: 07/20/19 10:46 Dose: Infused Documented by: Ampicillin Sodium/Sulbactam Sodium 1,500 mg/ Sodium Chloride 50 mls @ 100 mls/hr IV Q12 [facility] Last Admin: 07/20/19 10:46 Dose: 100 mls/hr Documented by: Dexmedetomidine HCl 400 mcg/ (Sodium Chloride) 100 mls @ 9.625 mls/hr CONT INF .[id number] [facility]IANNA; Protocol Last Titration: 07/20/19 09:45 Dose: 0.5 mcg/kg/hr, 9.6 mls/hr Documented by: Enteral Nutritional Formula (Vital Af 1.2 [place] Liquid) 1,000 mls @ 60 mls/hr GT .[id number] [facility] Last Admin: 07/20/19 10:51 Dose: 60 mls/hr Documented by: Insulin Human Lispro (Humalog [place] (Bkc)) 0 unit SC Q6 [facility]; Protocol Last Admin: 07/20/19 05:21 Dose: Not Given Documented by: Ipratropium [place] (Atrovent) 0.5 mg INHALATION Q4H.RT [facility] Last Admin: 07/20/19 06:29 Dose: 0.5 mg Documented by: Rosuvastatin Calcium (Crestor) 10 mg GT QHS [facility] Last Admin: 07/19/19 21:54 Dose: 10 mg Documented by: Sodium Chloride () 10 - 40 ml IV UD PRN PRN Reason: SALINE FLUSH Last Admin: 07/19/19 05:11 Dose: 10 ml Documented by: Medical Necessity - Tobacco Use Smoking Status: Former smoker - About 5 to 10 years states less than a pack per day Tobacco Use: Cigarettes, Cigars Assessment/Plan All Active Problems (Last Reviewed 07/14/19 @ 18:38 by Joan Charles) Severe sepsis (Acute) Community acquired pneumonia (Acute) 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) Atelectasis (Acute) 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) correction (current) use of anticoagulants (Acute) Atrial fibrillation (Acute) Non-rheumatic aortic stenosis (Resolved) Acute on chronic renal failure. CKD stage III at baseline. Creatinine is around 1.4. Acute renal failure is likely ATN in the setting of sepsis. CT abdomen without any hydronephrosis. He is currently oliguric hence I do not have a urine analysis for examination. Was initiated on dialysis for fluid overload and azotemia. Will plan for dialysis today. Reviewed chest x-ray. Mostly left-sided infiltrate. Will plan for 1 to 2 L of fluid removal. Discussed with ICU attending. Pneumonia. Left multilobar pneumonia. Sputum is positive for strep pneumonia. On antibiotics as per primary Atrial fibrillation. On amiodarone drip. History of coronary artery disease status post bypass graft and aortic valve replacement about a year ago.
--- NOTE | 2019-07-20 12:30 | NURSING ---
fentanyl weaned and then turned off at 1130 today due to hypotension and bradycardia. Precedex weaned and then turned off at 1230 due to hypotension and bradycardia. MD turcios
[2019-07-20 13:50] LABS: Bedside Glucose 99 mg/dL (70-110)
--- NOTE | 2019-07-20 16:25 | PN.SURG_ITS ---
Patient Problems: Active and Suspected Problems (Last Reviewed 07/14/19 @ 18:38 by Joan Charles) Severe sepsis (Acute) Community acquired pneumonia (Acute) Subjective: intubated, sedated - Physical Exam Vitals/I&O's: Vital Signs Temp Pulse Resp BP Pulse Ox 98.4 F 81 16 121/69 H 94 07/20/19 14:00 07/20/19 15:03 07/20/19 15:03 07/20/19 15:03 07/20/19 15:03 Oxygen Flow Rate (L/min) 50 Oxygen Delivery Method Mechanical Ventilator Weight: 77 kg Body Mass Index (BMI) 25.4 Intake and Output for Last 24 Hours 07/18/19 07/19/19 07/20/19 23:59 23:59 23:59 Intake Total 1892.65 / 1978.14 1701.24 / 1710.94 847.92 / 847.92 Output Total 950 / 1050 1095 / 1145 360 / 360 Balance 942.65 / 928.14 606.24 / 565.94 487.92 / 487.92 Neck: Trachea Midline, - - right IJ dialysis catheter site clean dressing in place Lungs: - - . She both lung tolbert, very coarse breath sounds left side Cardiovascular: Regular rate, Regular Rhythm Abdomen: Soft, Non Tender, Hypoactive Bowel Sounds Microbiology Past 72 Hours 07/17/19 15:15 Urine Catheter - Barkley Urine Culture - Final Culture exhibits no growth. 07/17/19 09:00 Sputum, Induced/Lukens Gram Stain - Final 07/17/19 09:00 Sputum, Induced/Lukens Respiratory Culture - Preliminary Possible Fungus 07/16/19 21:00 Sputum, Expectorated/Coughed Gram Stain - Final 07/16/19 21:00 Sputum, Expectorated/Coughed Respiratory Culture - Preliminary Streptococcus pneumoniae 07/16/19 16:30 Urine Catheter - Catheter Urine Culture - Final Culture exhibits no growth. 07/19/19 06:35 Gastric Fluid/Contents Gastric Occult Blood - Final Occult Blood Positive 07/16/19 11:50 Blood Culture (Wb) - Anticubital Left Blood Culture - Preliminary No growth in 48 hours. 07/16/19 11:15 Blood Culture (Wb) - Arm Left Blood Culture - Preliminary No growth in 48 hours. Laboratory Results 07/19/19 18:02: POC Glucose 77 07/19/19 18:21: Hep Bs Antigen Non-Reactive, Hep Bs Antibody Non-Reactive 07/19/19 23:35: POC Glucose 76 07/20/19 04:00: WBC 10.4, RBC 3.24 L, Hgb 10.0 L, Hct 30.8 L, MCV 95.1 H, MCH 30.9, MCHC 32.5, RDW Std Deviation 50.4 H, RDW Coeff of Jeanne 14.4, Plt Count 130 L, MPV 9.7, Immature Gran % (Auto) 2.500 H, Neut % (Auto) 88.3 H, Lymph % (Auto) 4.6 L, [place] % (Auto) 4.2, Eos % (Auto) 0.1, Baso % (Auto) 0.3, Absolute Neuts (auto) 9.2 H, Absolute Lymphs (auto) 0.48 L, Nucleated RBC % 0, Differential Comment SCANNED 07/20/19 04:00: Sodium 133 L, Potassium 5.0, Chloride 102, Carbon Dioxide 21.0, Anion Gap 10, BUN 55 H, Creatinine 4.83 H, Estim Creat Clear Calc 11.78, Est GFR (MDRD) Af Amer 15 L, Est GFR (MDRD) Non-Af 13 L, BUN/Creatinine Ratio 11.4, Glucose 156 H, Calcium 7.3 L 07/20/19 05:19: POC Glucose 86 07/20/19 13:48: POC Glucose 99 Current Medications Acetaminophen (Tylenol Liquid) 650 mg GT Q6H PRN PRN PRN Reason: Pain or Fever Chlorhexidine Gluconate () 15 ml PO BID [facility] Last Admin: 07/20/19 09:38 Dose: 15 ml Documented by: Chlorhexidine Gluconate () 1 each TOPICAL DAILY [facility] Last Admin: 07/20/19 09:44 Dose: 1 each Documented by: Glucagon () 1 mg IM .X1 PRN PRN Reason: Hypoglycemia Heparin Sodium (Porcine) (Heparin Na) 5,000 unit SC Q12 [facility] Last Admin: 07/20/19 09:38 Dose: 5,000 unit Documented by: Dextrose (Dextrose 10%-Water) 250 mls @ 999 mls/hr IV .Q16M PRN; Protocol PRN Reason: HYPOGLYCEMIA Fentanyl () 100 mls @ 15 mls/hr IV UD GIANNA; Protocol Last Titration: 07/20/19 14:00 Dose: 0 mcg/hr, 0 mls/hr Documented by: Amiodarone HCl 360 mg/ (Dextrose) 200 mls @ 16.667 mls/hr CONT INF .Q12H [facility] Last Admin: 07/20/19 15:03 Dose: 0.5 mg/min, 16.7 mls/hr Documented by: Pantoprazole Sodium 40 mg/ (Sodium Chloride) 110 mls @ 330 mls/hr IV Q12 [facility] Last Infusion: 07/20/19 10:46 Dose: Infused Documented by: Ampicillin Sodium/Sulbactam Sodium 1,500 mg/ Sodium Chloride 50 mls @ 100 mls/hr IV Q12 [facility] Last Infusion: 07/20/19 12:16 Dose: Infused Documented by: Dexmedetomidine HCl 400 mcg/ (Sodium Chloride) 100 mls @ 9.625 mls/hr CONT INF .[id number] [facility]; Protocol Last Titration: 07/20/19 14:00 Dose: 0 mcg/kg/hr, 0 mls/hr Documented by: Enteral Nutritional Formula (Vital Af 1.2 [place] Liquid) 1,000 mls @ 60 mls/hr GT .[id number] [facility] Last Admin: 07/20/19 10:51 Dose: 60 mls/hr Documented by: Insulin Human Lispro (Humalog [place] (Bkc)) 0 unit SC Q6 [facility]; Protocol Last Admin: 07/20/19 13:53 Dose: Not Given Documented by: Ipratropium [place] (Atrovent) 0.5 mg INHALATION Q4H.RT [facility] Last Admin: 07/20/19 14:55 Dose: 0.5 mg Documented by: Rosuvastatin Calcium (Crestor) 10 mg GT QHS [facility] Last Admin: 07/19/19 21:54 Dose: 10 mg Documented by: Sodium Chloride () 10 - 40 ml IV UD PRN PRN Reason: SALINE FLUSH Last Admin: 07/19/19 05:11 Dose: 10 ml Documented by: Medical Necessity - Tobacco Use Smoking Status: Former smoker - About 5 to 10 years states less than a pack per day Tobacco Use: Cigarettes, Cigars Assessment/Plan All Active Problems (Last Reviewed 07/14/19 @ 18:38 by Joan A Araceli) Severe sepsis (Acute) Community acquired pneumonia (Acute) 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 Postprocedure chest which demonstrated no pneumothorax patient patient was dialyzed yesterday successfully with removal of approximately 1/2 L of fluid. Clinically stable today. Chest x-ray today demonstrates good positioning the catheter and no signs of delayed pneumothorax. Patient underwent CT scan of the abdomen and pelvis yesterday with oral and IV contrast. Patient has a intestinal nonrotation. This is a Finding but should not affect current treatment options. He does seem to have gastric ileus with contrast in the stomach and just a scant amount of contrast in the proximal duodenum and small bowel but does not have signs of distended small bowel suggesting an obstruction. Likely this would be ileus from his multisystem organ failure.
--- NOTE | 2019-07-20 17:19 | DIALYSIS ---
Hemodialysis x 3 hours with 2K bath; Tolerated well. Removed = ; RIJ CVC capped & locked with heparin per lumen fill volume. Report given to YUNIOR Stevens.
--- NOTE | 2019-07-20 18:04 | PCM.PROGNOTE ---
Patient Problems: Active and Suspected Problems (Last Reviewed 07/14/19 @ 18:38 by Joan Charles) Severe sepsis (Acute) Community acquired pneumonia (Acute) Subjective: Patient was seen and examined in the ICU today, he is sedated and on the ventilator and is presently undergoing dialysis. Possible fungus was noted in the patient's sputum sample, white blood cell count today was 10.4, creatinine was 4.83. Chest x-ray today showed left upper lobe pneumonia. - Physical Exam Vitals/I&O's: Vital Signs Temp Pulse Resp BP Pulse Ox 98.9 F 93 24 H 129/76 H 95 07/20/19 17:20 07/20/19 17:20 07/20/19 17:20 07/20/19 17:20 07/20/19 17:09 Oxygen Flow Rate (L/min) 50 Oxygen Delivery Method Mechanical Ventilator Weight: 77 kg Body Mass Index (BMI) 25.4 Intake and Output for Last 24 Hours 07/18/19 07/19/19 07/20/19 23:59 23:59 23:59 Intake Total 1892.65 / 1978.14 1701.24 / 1710.94 854.17 / 854.17 Output Total 950 / 1050 1095 / 1145 4360 / 4360 Balance 942.65 / 928.14 606.24 / 565.94 -3505.83 / -3505.83 General: - - Sedated and on the ventilator HEENT: Atraumatic, PERRLA, Normocephalic Neck: Supple Lungs: Clear to auscultation, Normal air movement, No rhonchi, No wheeze, No rales Cardiovascular: Regular rate, Regular Rhythm, Normal S1, Normal S2, No murmurs, PMI Normal, No rub noted Abdomen: Bowel Sounds Present, Soft, Non Tender, Non-Distended Extremities: No edema, Capillary Refill Less than 3 Seconds Skin: No rashes, No breakdown Neurological: - - Patient is sedated and on the ventilator Psych/Mental Status: - - Patient is sedated and on the ventilator Microbiology Past 72 Hours 07/17/19 15:15 Urine Catheter - Barkley Urine Culture - Final Culture exhibits no growth. 07/17/19 09:00 Sputum, Induced/Lukens Gram Stain - Final 07/17/19 09:00 Sputum, Induced/Lukens Respiratory Culture - Preliminary Possible Fungus 07/16/19 21:00 Sputum, Expectorated/Coughed Gram Stain - Final 07/16/19 21:00 Sputum, Expectorated/Coughed Respiratory Culture - Preliminary Streptococcus pneumoniae 07/16/19 16:30 Urine Catheter - Catheter Urine Culture - Final Culture exhibits no growth. 07/19/19 06:35 Gastric Fluid/Contents Gastric Occult Blood - Final Occult Blood Positive 07/16/19 11:50 Blood Culture (Wb) - Anticubital Left Blood Culture - Preliminary No growth in 48 hours. 07/16/19 11:15 Blood Culture (Wb) - Arm Left Blood Culture - Preliminary No growth in 48 hours. Laboratory Results 07/19/19 18:02: POC Glucose 77 07/19/19 18:21: Hep Bs Antigen Non-Reactive, Hep Bs Antibody Non-Reactive 07/19/19 23:35: POC Glucose 76 07/20/19 04:00: WBC 10.4, RBC 3.24 L, Hgb 10.0 L, Hct 30.8 L, MCV 95.1 H, MCH 30.9, MCHC 32.5, RDW Std Deviation 50.4 H, RDW Coeff of Jeanne 14.4, Plt Count 130 L, MPV 9.7, Immature Gran % (Auto) 2.500 H, Neut % (Auto) 88.3 H, Lymph % (Auto) 4.6 L, [place] % (Auto) 4.2, Eos % (Auto) 0.1, Baso % (Auto) 0.3, Absolute Neuts (auto) 9.2 H, Absolute Lymphs (auto) 0.48 L, Nucleated RBC % 0, Differential Comment SCANNED 07/20/19 04:00: Sodium 133 L, Potassium 5.0, Chloride 102, Carbon Dioxide 21.0, Anion Gap 10, BUN 55 H, Creatinine 4.83 H, Estim Creat Clear Calc 11.78, Est GFR (MDRD) Af Amer 15 L, Est GFR (MDRD) Non-Af 13 L, BUN/Creatinine Ratio 11.4, Glucose 156 H, Calcium 7.3 L 07/20/19 05:19: POC Glucose 86 07/20/19 13:48: POC Glucose 99 Current Medications Acetaminophen (Tylenol Liquid) 650 mg GT Q6H PRN PRN PRN Reason: Pain or Fever Chlorhexidine Gluconate () 15 ml PO BID [facility] Last Admin: 07/20/19 09:38 Dose: 15 ml Documented by: Chlorhexidine Gluconate () 1 each TOPICAL DAILY [facility] Last Admin: 07/20/19 09:44 Dose: 1 each Documented by: Glucagon () 1 mg IM .X1 PRN PRN Reason: Hypoglycemia Heparin Sodium (Porcine) (Heparin Na) 5,000 unit SC Q12 [facility] Last Admin: 07/20/19 09:38 Dose: 5,000 unit Documented by: Dextrose (Dextrose 10%-Water) 250 mls @ 999 mls/hr IV .Q16M PRN; Protocol PRN Reason: HYPOGLYCEMIA Fentanyl () 100 mls @ 15 mls/hr IV UD [facility]; Protocol Last Titration: 07/20/19 18:00 Dose: 75 mcg/hr, 7.5 mls/hr Documented by: Amiodarone HCl 360 mg/ (Dextrose) 200 mls @ 16.667 mls/hr CONT INF .Q12H [facility] Last Admin: 07/20/19 15:03 Dose: 0.5 mg/min, 16.7 mls/hr Documented by: Pantoprazole Sodium 40 mg/ (Sodium Chloride) 110 mls @ 330 mls/hr IV Q12 [facility] Last Infusion: 07/20/19 10:46 Dose: Infused Documented by: Ampicillin Sodium/Sulbactam Sodium 1,500 mg/ Sodium Chloride 50 mls @ 100 mls/hr IV Q12 [facility] Last Infusion: 07/20/19 12:16 Dose: Infused Documented by: Dexmedetomidine HCl 400 mcg/ (Sodium Chloride) 100 mls @ 9.625 mls/hr CONT INF .[id number] [facility]; Protocol Last Titration: 07/20/19 18:00 Dose: 0 mcg/kg/hr, 0 mls/hr Documented by: Enteral Nutritional Formula (Vital Af 1.2 [place]ton Liquid) 1,000 mls @ 60 mls/hr GT .[id number] [facility] Last Admin: 07/20/19 10:51 Dose: 60 mls/hr Documented by: Insulin Human Lispro (Humalog Kwikpen (Bkc)) 0 unit SC Q6 [facility]; Protocol Last Admin: 07/20/19 13:53 Dose: Not Given Documented by: Ipratropium Sharon (Atrovent) 0.5 mg INHALATION Q4H.RT GIANNA Last Admin: 07/20/19 14:55 Dose: 0.5 mg Documented by: Rosuvastatin Calcium (Crestor) 10 mg GT QHS [facility] Last Admin: 07/19/19 21:54 Dose: 10 mg Documented by: Sodium Chloride () 10 - 40 ml IV UD PRN PRN Reason: SALINE FLUSH Last Admin: 07/19/19 05:11 Dose: 10 ml Documented by: Medical Necessity - Tobacco Use Smoking Status: Former smoker - About 5 to 10 years states less than a pack per day Tobacco Use: Cigarettes, Cigars Assessment/Plan All Active Problems (Last Reviewed 07/14/19 @ 18:38 by Joan Charles) Severe sepsis (Acute) Community acquired pneumonia (Acute) 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) Atelectasis (Acute) 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) long term (current) use of anticoagulants (Acute) Atrial fibrillation (Acute) Non-rheumatic aortic stenosis (Resolved) #1 acute hypoxemic respiratory failure-secondary to community-acquired pneumonia (Streptococcus pneumoniae)-continue present antibiotics #2 severe sepsis secondary to community-acquired pneumonia-Streptococcus pneumoniae #3 sputum positive for fungus-ID will see the patient in consultation #4 acute renal failure-patient is currently undergoing dialysis #5 paroxysmal atrial fibrillation-now in sinus rhythm #6 community-acquired pneumonia secondary to Streptococcus pneumoniae #7 atherosclerotic heart disease Code Visit Inpatient E&M: 08238 Subs Hosp L2
[2019-07-20 18:46] LABS: Bedside Glucose 126 mg/dL (70-110)
[2019-07-20] MEDS: fentaNYL drip 100 ML 10 MCG IV (20:02)
[2019-07-20 22:21] LABS: Bedside Glucose 138 mg/dL (70-110)
[2019-07-21] VITALS (41 sets, daily range): BP systolic 85–173; BP diastolic 50–96; PULSE 58–134; RESP 12–27; TEMP 36.8–38.1; O2SAT 89–96
[2019-07-21] MEDS: Ipratropium 0.5 MG/2.5 ML SOLUTION INHALATION ×6 (03:34→23:54)
[2019-07-21 05:51] LABS: Bedside Glucose 122 mg/dL (70-110)
--- NOTE | 2019-07-21 06:41 | PN_ITS ---
Subjective: The patient was seen and examined at the bedside this morning. Events from the last 24 hours have been reviewed. The patient is currently afebrile, hemodynamically stable and maintaining appropriate oxygen saturations on spontaneous mode mechanical ventilation with an FiO2 requirement of 40%. The patient is currently doing well on his spontaneous breathing trial. However, nursing staff did report significant amount of porter-colored secretions from his endotracheal tube overnight. The patient is currently documented to be overall net +6.5 L for the hospital admission. The patient has been and continues to be tolerating tube feeds without issue. Objective: The patient's most recent lab work, culture data and imaging studies have all been personally reviewed. Surface echocardiogram revealed moderate concentric LVH with an ejection fraction of 65%. Right ventricular systolic pressure was estimated to be 40 mmHg. Strep and urine Legionella antigens were negative. Sputum culture was positive for Streptococcus pneumoniae. In addition, there was note of possible very rare fungus present as well too. Gastric occult blood was noted to be positive. General: Alert, Cooperative, - - Currently tolerating spontaneous mode of mechanical ventilation. HEENT: Atraumatic, Normocephalic Oral: Moist Mucosa, - - Endotracheal and OG tubes remain in place Neck: Supple, No Nodes, Trachea Midline, - - Temporary hemodialysis catheter in place Lungs: No rhonchi, No wheeze, No rales, Diminished Cardiovascular: Regular rate, Regular Rhythm, Normal S1, Normal S2, Murmur Abdomen: Soft, Non Tender, Distended Extremities: No clubbing, No cyanosis, Edema Skin: - - No significant change from previous Musculoskeletal: No Muscle Wasting Lymphatic: No Cervical, Supraclavicular, or Inguinal Adenopathy Neurological: - - No focal neurological deficits. CAM negative. Vital Signs Temp Pulse Resp BP Pulse Ox 98.3 F 76 20 H 159/60 H 94 07/21/19 05:00 07/21/19 06:00 07/21/19 06:00 07/21/19 06:00 07/21/19 06:00 Oxygen Flow Rate (L/min) 50 Oxygen Delivery Method Mechanical Ventilator Weight: 167 lb 5.294 oz Body Mass Index (BMI) 25.4 Intake and Output for Last 24 Hours 07/19/19 07/20/19 07/21/19 23:59 23:59 23:59 Intake Total 1701.24 / 1710.94 1701.39 / 2205.74 1146.21 / 1146.21 Output Total 1095 / 1145 4390 / 4400 Balance 606.24 / 565.94 -2688.61 / -2194.26 1136.21 / 1136.21 Labs (Last 48 Hours) 07/19/19 07/19/19 07/19/19 11:28 18:02 18:21 WBC RBC Hgb Hct MCV MCH MCHC RDW Std Deviation RDW Coeff of Jeanne Plt Count MPV Immature Gran % (Auto) Neut % (Auto) Lymph % (Auto) [place] % (Auto) Eos % (Auto) Baso % (Auto) Absolute Neuts (auto) Absolute Lymphs (auto) Nucleated RBC % Differential Comment Sodium Potassium Chloride Carbon Dioxide Anion Gap BUN Creatinine Estim Creat Clear Calc Est GFR (MDRD) Af Amer Est GFR (MDRD) Non-Af BUN/Creatinine Ratio Glucose Calcium Hep Bs Antigen Non-Reactive Hep Bs Antibody Non-Reactive POC Glucose 88 77 07/19/19 07/20/19 07/20/19 23:35 04:00 04:00 WBC 10.4 RBC 3.24 L Hgb 10.0 L Hct 30.8 L MCV 95.1 H MCH 30.9 MCHC 32.5 RDW Std Deviation 50.4 H RDW Coeff of Jeanne 14.4 Plt Count 130 L MPV 9.7 Immature Gran % (Auto) 2.500 H Neut % (Auto) 88.3 H Lymph % (Auto) 4.6 L [place] % (Auto) 4.2 Eos % (Auto) 0.1 Baso % (Auto) 0.3 Absolute Neuts (auto) 9.2 H Absolute Lymphs (auto) 0.48 L Nucleated RBC % 0 Differential Comment SCANNED Sodium 133 L Potassium 5.0 Chloride 102 Carbon Dioxide 21.0 Anion Gap 10 BUN 55 H Creatinine 4.83 H Estim Creat Clear Calc 11.78 Est GFR (MDRD) Af Amer 15 L Est GFR (MDRD) Non-Af 13 L BUN/Creatinine Ratio 11.4 Glucose 156 H Calcium 7.3 L Hep Bs Antigen Hep Bs Antibody POC Glucose 76 07/20/19 07/20/19 07/20/19 05:19 13:48 18:38 WBC RBC Hgb Hct MCV MCH MCHC RDW Std Deviation RDW Coeff of Jeanne Plt Count MPV Immature Gran % (Auto) Neut % (Auto) Lymph % (Auto) [place] % (Auto) Eos % (Auto) Baso % (Auto) Absolute Neuts (auto) Absolute Lymphs (auto) Nucleated RBC % Differential Comment Sodium Potassium Chloride Carbon Dioxide Anion Gap BUN Creatinine Estim Creat Clear Calc Est GFR (MDRD) Af Amer Est GFR (MDRD) Non-Af BUN/Creatinine Ratio Glucose Calcium Hep Bs Antigen Hep Bs Antibody POC Glucose 86 99 126 H 07/20/19 07/21/19 22:06 05:41 WBC RBC Hgb Hct MCV MCH MCHC RDW Std Deviation RDW Coeff of Jeanne Plt Count MPV Immature Gran % (Auto) Neut % (Auto) Lymph % (Auto) [place] % (Auto) Eos % (Auto) Baso % (Auto) Absolute Neuts (auto) Absolute Lymphs (auto) Nucleated RBC % Differential Comment Sodium Potassium Chloride Carbon Dioxide Anion Gap BUN Creatinine Estim Creat Clear Calc Est GFR (MDRD) Af Amer Est GFR (MDRD) Non-Af BUN/Creatinine Ratio Glucose Calcium Hep Bs Antigen Hep Bs Antibody POC Glucose 138 H 122 H Microbiology 07/17/19 15:15 Urine Catheter - Bark[place] Urine Culture - Final Culture exhibits no growth. 07/17/19 09:00 Sputum, Induced/Lukens Gram Stain - Final 07/17/19 09:00 Sputum, Induced/Lukens Respiratory Culture - Preliminary Possible Fungus 07/16/19 21:00 Sputum, Expectorated/Coughed Gram Stain - Final 07/16/19 21:00 Sputum, Expectorated/Coughed Respiratory Culture - Preli minary Streptococcus pneumoniae 07/16/19 16:30 Urine Catheter - Catheter Urine Culture - Final Culture exhibits no growth. 07/19/19 06:35 Gastric Fluid/Contents Gastric Occult Blood - Final Occult Blood Positive Clinical Impression(s) from Imaging Studies Chest X-Ray 07/17/19 06:43 IMPRESSION: Progressive left upper lobe infiltrate. Electronically Signed: Behzad Jimenez, at 8:27 EST , Service support , Chest X-Ray 07/17/19 08:33 IMPRESSION: The tip of the endotracheal tube is at 2.1 cm proximal to the donaldo. The tip of the orogastric tube is in the distal stomach. Stable opacification in the left hemithorax as well as increased markings at the right lung base. Electronically Signed: Behzad Barbara, at 10:02 EST , Service support , Chest X-Ray 07/17/19 12:34 IMPRESSION: A right-sided PICC line catheter has been placed. The tip is at the junction of the superior vena cava and right atrium. The tip of the endotracheal tube should be withdrawn approximately 2 cm. Stable appearance of both lungs. Electronically Signed: Behzad Barbara, at 13:16 EST , Service support , KUB X-Ray 07/18/19 08:24 IMPRESSION: 1. Mildly reduced patchy airspace disease of the left lung. Small layering right effusion. 2. NG tube tip overlying the distal stomach. Otherwise no evidence of definitive bowel dilatation or air-fluid levels. Electronically Signed: Nader Rodney DO at 9:30 EST , Service support , Abdomen/Pelvis CT 07/19/19 13:21 IMPRESSION: Bibasilar consolidations/atelectasis and pleural effusions. Cholelithiasis. Left adrenal nodule. Right renal cyst. Malrotation is suspected of the GI tract. No bowel obstruction. Fatty density at the inguinal canals. Electronically Signed: Pablo Hooper DO at 17:49 EST Tel [phone], Service support , Chest X-Ray 07/19/19 14:10 IMPRESSION: Worsening left upper lobe infiltrate. Bibasilar infiltrates. Electronically Signed: Pablo Hooper DO at 17:59 EST Tel [phone], Service support , Chest X-Ray 07/20/19 08:09 IMPRESSION: 1. Endotracheal tube, nasogastric tube, right internal jugular temporary dialysis catheter, and right upper extremity PICC all of which are unchanged. 2. Improved left upper lobe pneumonia. 3. Poor inspiration with some bibasilar atelectasis. 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 Continue patient on spontaneous mode of mechanical ventilation, with plans t o transition back to assist control overnight. 2. Continue fentanyl for sedation and pain control. 3. Continue antimicrobials per infectious diseases recommendations. 4. Continue medical management of atrial fibrillation per cardiology recommendations. 5. Continue hemodialysis per nephrology recommendations. 6. Continue tube feeds. 7. Continue GI prophylaxis. IMPRESSIONS: 1. Acute hypoxemic respiratory failure secondary to severe community-acquired pneumonia Unfortunately, the patient continued to decompensate clinically despite the use of noninvasive positive pressure ventilatory support. The patient's respiratory status is also complicated by the fact that he is currently in atrial fibrillation with a rapid ventricular rate. The patient did require intubation on the morning of July 17. The patient has improved from a respiratory status with treatment of his underlying infection and with volume optimization. He is currently tolerating pressure support mode mechanical ventilation, which will be continued today. Ideally, secretion production should improve prior to consideration for potential extubation. The patient will be continued on fentanyl for pain and sedation purposes. Recommend transitioning back to assist control for overnight support. 2. Severe sepsis likely secondary to pneumococcal pneumonia Continue current supportive measures including invasive mechanical ventilatory support and current antimicrobial coverage. The patient is currently growing Streptococcus pneumoniae and there is some note of possible fungus on his second sputum culture from July 17. Infectious diseases is currently following to assist with management. 3. Distributive shock Resolved. The patient became hypotensive following intubation and subsequent initiation of sedative medications. I cannot discount the possibility that a component of the patient's hemodynamic instability may also be secondary to his underlying dysrhythmia and elevated ventricular rate. The patient has been weaned successfully off of vasopressor support. He remains hemodynamically stable at this time. 4. Acute kidney injury Possibly secondary to ischemic ATN in the setting of hemodynamic instability due to the patient's underlying infectious process, atrial fibrillation with rapid ventricular rate and sedation related hypotension. A CT abdomen/pelvis revealed no evidence of an acute intra-abdominal process. The patient did require hemodialysis initiation on July 19. Nephrology is currently following. Will defer ongoing hemodialysis need to nephrology accordingly. 5. Paroxysmal atrial fibrillation with rapid ventricular rate/coronary artery disease status post bypass/aortic valve replacement Resolved. The patient converted from atrial fibrillation back to sinus rhythm with underlying medical management and treatment of his infection, as noted above. Cardiology is following. Continue rate/rhythm control strategy per recommendations. TIME: 40 minutes of critical care time, independent of procedures, was spent addressing the patient's acute hypoxemic respiratory failure, severe sepsis secondary to community-acquired pneumonia, distributive shock, acute kidney injury, paroxysmal atrial fibrillation with rapid ventricular rate, review of all data and collaboration with the care team. ([id number]) Code Visit 9xxxx: [id number] Critical care first hour
[2019-07-21 07:10] LABS: Absolute Lymphocyte Count 0.58 X10^3/uL (0.83-4.51); Absolute Neutrophil Count 9.1 X10^3/uL (2.0-7.7); Basophil# 0.02 X10^3/uL; Basophil% 0.2 % (0-1); Eosinophil# 0.07 X10^3/uL; Eosinophils% 0.7 % (0-5); Hematocrit 30.4 % (40-54); Hemoglobin 10.4 g/dL (13.0-16.5); Lymphocyte # 0.58 X10^3/ul (4.0); Lymphocyte % 5.6 % (19-41); Mean Corp Hgb Conc 34.2 g/dL (32-36); Mean Corpuscular Hgb 30.9 pg (27.0-32.0); Mean Corpuscular Volume 90.2 fL (80-94); Mean Platelet Vol. 9.7 fl (6.2-12.0); Monocyte% 2.9 % (0-10); NRBC Flagged by Analyzer 0 % (0-5); Neutrophil # 9.06 X10^3/uL (2.7-7.7); POSITIVE DIFFERENTIAL YES; Platelet Count 113 K/mm3 (150-450); RBC Distribution Width CV 14.3 % (11.6-14.6); RBC Distribution Width SD 47.4 fl (35.1-43.9); Red Blood Count 3.37 M/mm3 (4.6-6.2); White Blood Count 10.3 K/mm3 (4.4-11.0)
[2019-07-21 07:19] LABS: Differential Indicated SCAN CRITERIA MET
[2019-07-21 07:25] LABS: ALB/GLOB Ratio 0.3 RATIO (0.9-2.4); AST(SGOT) 139 U/L (15-37); Alanine Aminotransfer ALT/SGPT 57 U/L (16-61); Albumin, Serum 1.6 g/dL (3.2-5.0); Alkaline Phosphatase 94 U/L (45-117); Anion Gap 11 (5-15); BUN 53 mg/dL (7-18); BUN/Creat Ratio 11.7 RATIO (10-20); Calcium,Total 7.3 mg/dL (8.5-10.1); Chloride 100 mmol/L (98-107); Creatinine, Serum 4.52 mg/dL (0.70-1.30); EST Glomerular Filtration Rate 14 mL/min (>60); Est Glom Filt Rate - Afr Amer 16 mL/min (>60); Estimated Creatinine Clearance 12.59 ml/min; Globulin 4.7 g/dL (2.2-4.2); Glucose 129 mg/dL (74-106); Protein, Total 6.3 g/dL (6.4-8.2); Sodium Level 136 mmol/L (136-145)
--- NOTE | 2019-07-21 09:25 | PCM.PN.CARD ---
Subjectve: Patient awake this morning, obeys commands, extubation plans in progress. Still remains in normal sinus rhythm. Telemetry negative. EKG shows normal sinus rhythm with inferolateral ST segment depression, QT corrected of 404 ms. Objective: Vital Signs Temp Pulse Resp BP Pulse Ox 98.3 F 87 20 H 168/70 H 92 07/21/19 05:00 07/21/19 08:33 07/21/19 08:33 07/21/19 08:33 07/21/19 08:33 Oxygen Flow Rate (L/min) 50 Oxygen Delivery Method Mechanical Ventilator Weight: 167 lb 5.294 oz Body Mass Index (BMI) 25.4 Intake and Output for Last 24 Hours 07/19/19 07/20/19 07/21/19 23:59 23:59 23:59 Intake Total 1701.24 / 1710.94 1701.39 / 2205.74 1188.80 / 1188.80 Output Total 1095 / 1145 4390 / 4400 10 / Balance 606.24 / 565.94 -2688.61 / -2194.26 1178.80 / 1178.80 General: Awake, Alert, Oriented x 3 HEENT: PERRL, EOMI, Sclera Non Icteric Neck: Supple, Good ROM, No Lymph Node Enlargement Lungs: Diminished Right Base Cardiovascular: Regular Rhythm, Normal S2, No Rubs, No Gallops Murmur Murmur: Grade 2/6, Crescendo-Decrescendo Vascular: No Carotid Bruits, Normal Femoral Pulses, Normal Radial Pulses, Normal Dorsalis Pedal Pulse, Normal Posterior Tibial Pulses Abdomen: Bowel Sounds Present, Soft, Non Tender, No HSM, No Organomegaly Extremities: No Cyanosis, No Clubbing, No edema Neurological: No Focal Motor or Sensory Deficit 07/21/19 06:55: WBC 10.3, RBC 3.37 L, Hgb 10.4 L, Hct 30.4 L, MCV 90.2 D, MCH 30.9, MCHC 34.2, Plt Count 113 L, MPV 9.7, Immature Gran % (Auto) 2.600 H, Neut % (Auto) 88.0 H, Lymph % (Auto) 5.6 L, [place] % (Auto) 2.9, Eos % (Auto) 0.7, Baso % (Auto) 0.2, Absolute Neuts (auto) 9.1 H, Nucleated RBC % 0 07/21/19 06:55: Sodium 136, Potassium 4.0, Chloride 100, Carbon Dioxide 25.0, Anion Gap 11, BUN 53 H, Creatinine 4.52 H, Est GFR (MDRD) Af Amer 16 L, Est GFR (MDRD) Non-Af 14 L, BUN/Creatinine Ratio 11.7, Glucose 129 H, Calcium 7.3 L, Total Bilirubin 1.10 H Rhythm: EKG: ECHO: Stress Test: Cardiac Cath: PCI: CT Surgery: Holter monitor: EPS: PPM: CXR: Chest CT Scan: Medical Necessity - Tobacco Use Smoking Status: Former smoker - About 5 to 10 years states less than a pack per day Tobacco Use: Cigarettes, Cigars Assessment/Plan 1. Atrial fibrillation: The patient developed atrial fibrillation most likely as a result of his acute illness, with rapid ventricular response initially refractory to IV amiodarone. Patient is now fully converted to normal sinus rhythm. In addition the patient has a significant left-sided pneumonia, which is being treated with broad-spectrum antibiotics. Unfortunately his respiratory situation deteriorated, and patient has been intubated since 07/17/2019. Patient's mental status is much better today, and weaning trial is ongoing this morning. Patient is maintained on sinus rhythm for the better part of 48 hours. Recommend switching over from IV amiodarone to amiodarone 200 mg p.o. daily. Patient's Eliquis was held out of concern for possible GI bleeding. We will restart this once he is extubated. 2. Aortic valve replacement: Patient has a history of bioprosthetic aortic valve replacement and his recent echocardiogram was outlined above. Repeat surface echocardiogram shows normal functioning aortic valve replacement, without evidence of bacterial vegetation or abscess. Blood cultures thus far have been negative. His white count is actually within normal limits so it is doubtful the patient has endocarditis. 3. Coronary artery disease: Patient is a history of coronary disease status post three-vessel bypass surgery. The patient's atrial fibrillation demonstrated anterolateral ST segment depression which may be LVH with repolarization abnormality. Troponin series had a maximum of 1.0, and has had no sustained ventricular arrhythmias noted. Patient may require diagnostic coronary angiogram once his respiratory status has resolved. If the patient's unable to be extubated, he may require diagnostic coronary angiogram to determine whether he has any coronary disease that may be prohibiting extubation. 4. Hyperlipidemia: Continue statin based medications such as rosuvastatin. 5. Acute on chronic renal failure: The patient developed anuric status, requiring right IJ double-lumen catheter for dialysis. Hemodialysis completed, which may have assisted with correction of his rhythm as well. Continue hemodialysis for fluid management and blood purification as needed. 6. Thank you very much for the opportunity to participate in the cardiac care of your patient. Discussed patient's condition with Dr. Bolivar and patient's and family. Code Visit Inpatient E&M: 17297 Subs Hosp L3
[2019-07-21] MEDS: CHLORHEXIDINE GLUC 2% CLOTH 1 EACH TOWELETTE TOPICAL (09:45)
[2019-07-21] MEDS: Chlorhexidine 15 ML PO ×2 (09:45→22:28)
[2019-07-21] MEDS: Amiodarone 200 MG Tablet GT (09:49)
[2019-07-21] MEDS: Heparin Injection (Vial) 5,000 UNIT/ML VIAL 5000 UNIT SC ×2 (09:49→22:27)
--- NOTE | 2019-07-21 10:27 | PCM.PN.REN ---
Patient Problems: Active and Suspected Problems (Last Reviewed 07/14/19 @ 18:38 by Joan Charles) Severe sepsis (Acute) Community acquired pneumonia (Acute) Subjective: no new events off pressors remains intubated on fentanyl only no urine output - Physical Exam Vitals/I&O's: Vital Signs Temp Pulse Resp BP Pulse Ox 98.3 F 89 16 168/70 H 92 07/21/19 05:00 07/21/19 09:00 07/21/19 08:43 07/21/19 08:33 07/21/19 08:43 Oxygen Flow Rate (L/min) 50 Oxygen Delivery Method Mechanical Ventilator Weight: 75.9 kg Body Mass Index (BMI) 25.4 Intake and Output for Last 24 Hours 07/19/19 07/20/19 07/21/19 23:59 23:59 23:59 Intake Total 1701.24 / 1710.94 1701.39 / 2205.74 1383.06 / 1383.06 Output Total 1095 / 1145 4390 / 4400 Balance 606.24 / 565.94 -2688.61 / -2194.26 1373.06 / 1373.06 HEENT: Atraumatic, PERRLA, EOMI, Normocephalic Neck: Supple, No JVD, Negative Carotid Bruits Lungs: Clear to auscultation, Normal air movement Cardiovascular: Regular rate, No murmurs Abdomen: Bowel Sounds Present, Soft, Non Tender Extremities: No edema, Capillary Refill Less than 3 Seconds Skin: No rashes, No breakdown Musculoskeletal: No Tenderness to Palpation of Joints or Extremities Neurological: Cranial nerves II-XII grossly intact Microbiology Past 72 Hours 07/17/19 09:00 Sputum, Induced/Lukens Gram Stain - Final 07/17/19 09:00 Sputum, Induced/Lukens Respiratory Culture - Preliminary Possible Fungus 07/16/19 21:00 Sputum, Expectorated/Coughed Gram Stain - Final 07/16/19 21:00 Sputum, Expectorated/Coughed Respiratory Culture - Final Streptococcus pneumoniae 07/17/19 15:15 Urine Catheter - Barkley Urine Culture - Final Culture exhibits no growth. 07/16/19 16:30 Urine Catheter - Catheter Urine Culture - Final Culture exhibits no growth. 07/19/19 06:35 Gastric Fluid/Contents Gastric Occult Blood - Final Occult Blood Positive 07/16/19 11:50 Blood Culture (Wb) - Anticubital Left Blood Culture - Preliminary No growth in 48 hours. 07/16/19 11:15 Blood Culture (Wb) - Arm Left Blood Culture - Preliminary No growth in 48 hours. Laboratory Results 07/20/19 13:48: POC Glucose 99 07/20/19 18:38: POC Glucose 126 H 07/20/19 22:06: POC Glucose 138 H 07/21/19 05:41: POC Glucose 122 H 07/21/19 06:55: WBC 10.3, RBC 3.37 L, Hgb 10.4 L, Hct 30.4 L, MCV 90.2 D, MCH 30.9, MCHC 34.2, RDW Std Deviation 47.4 H, RDW Coeff of Jeanne 14.3, Plt Count 113 L, MPV 9.7, Immature Gran % (Auto) 2.600 H, Neut % (Auto) 88.0 H, Lymph % (Auto) 5.6 L, [place] % (Auto) 2.9, Eos % (Auto) 0.7, Baso % (Auto) 0.2, Absolute Neuts (auto) 9.1 H, Absolute Lymphs (auto) 0.58 L, Nucleated RBC % 0 07/21/19 06:55: Sodium 136, Potassium 4.0, Chloride 100, Carbon Dioxide 25.0, Anion Gap 11, BUN 53 H, Creatinine 4.52 H, Estim Creat Clear Calc 12.59, Est GFR (MDRD) Af Amer 16 L, Est GFR (MDRD) Non-Af 14 L, BUN/Creatinine Ratio 11.7, Glucose 129 H, Calcium 7.3 L, Total Bilirubin 1.10 H, AST 139 H, ALT 57, Alkaline Phosphatase 94, Total Protein 6.3 L, Albumin 1.6 L, Globulin 4.7 H, Albumin/Globulin Ratio 0.3 L Current Medications Acetaminophen (Tylenol Liquid) 650 mg GT Q6H PRN PRN PRN Reason: Pain or Fever Amiodarone HCl (Cordarone) 200 mg GT DAILY [facility] Last Admin: 07/21/19 09:49 Dose: 200 mg Documented by: Chlorhexidine Gluconate () 15 ml PO BID [facility] Last Admin: 07/21/19 09:45 Dose: 15 ml Documented by: Chlorhexidine Gluconate () 1 each TOPICAL DAILY [facility] Last Admin: 07/21/19 09:45 Dose: 1 each Documented by: Glucagon () 1 mg IM .X1 PRN PRN Reason: Hypoglycemia Heparin Sodium (Porcine) (Heparin Na) 5,000 unit SC Q12 [facility] Last Admin: 07/21/19 09:49 Dose: 5,000 unit Documented by: Dextrose (Dextrose 10%-Water) 250 mls @ 999 mls/hr IV .Q16M PRN; Protocol PRN Reason: HYPOGLYCEMIA Fentanyl () 100 mls @ 15 mls/hr IV UD [facility]; Protocol Last Titration: 07/21/19 10:07 Dose: 7.5 mcg/hr, 0.8 mls/hr Documented by: Amiodarone HCl 360 mg/ (Dextrose) 200 mls @ 16.667 mls/hr CONT INF .Q12H [facility] Last Infusion: 07/21/19 09:00 Dose: 0.5 mg/min, 16.7 mls/hr Documented by: Pantoprazole Sodium 40 mg/ (Sodium Chloride) 110 mls @ 330 mls/hr IV Q12 [facility] Last Infusion: 07/21/19 10:05 Dose: Infused Documented by: Dexmedetomidine HCl 400 mcg/ (Sodium Chloride) 100 mls @ 9.488 mls/hr CONT INF .[id number] [facility]; Protocol Last Titration: 07/21/19 10:09 Dose: Infused Documented by: Enteral Nutritional Formula (Vital Af 1.2 [place] Liquid) 1,000 mls @ 60 mls/hr GT .[id number] [facility] Last Admin: 07/21/19 03:29 Dose: Not Given Documented by: Sodium Chloride () 250 mls @ 15 mls/hr IV .[id number] PRN PRN Reason: Saline Flush Last Infusion: 07/21/19 10:25 Dose: 0 mls/hr Documented by: Ampicillin Sodium/Sulbactam Sodium 1,500 mg/ Sodium Chloride 50 mls @ 100 mls/hr IV DAILY [facility] Last Admin: 07/21/19 10:02 Dose: 100 mls/hr Documented by: Insulin Human Lispro (Humalog Kwikpen (Bkc)) 0 unit SC Q6 [facility]; Protocol Last Admin: 07/21/19 05:50 Dose: Not Given Documented by: Ipratropium [place] (Atrovent) 0.5 mg INHALATION Q4H.RT [facility] Last Admin: 07/21/19 06:51 Dose: 0.5 mg Documented by: Ondansetron HCl (Zofran) 4 mg IV Q6H PRN PRN PRN Reason: NAUSEA/VOMITING Rosuvastatin Calcium (Crestor) 10 mg GT QHS [facility] Last Admin: 07/20/19 21:57 Dose: 10 mg Documented by: Sodium Chloride () 10 - 40 ml IV UD PRN PRN Reason: SALINE FLUSH Last Admin: 07/19/19 05:11 Dose: 10 ml Documented by: Medical Necessity - Tobacco Use Smoking Status: Former smoker - About 5 to 10 years states less than a pack per day Tobacco Use: Cigarettes, Cigars Assessment/Plan All Active Problems (Last Reviewed 07/14/19 @ 18:38 by Joan Charles) Severe sepsis (Acute) Community acquired pneumonia (Acute) 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 CKD stage III at baseline. Creatinine is around 1.4. Acute renal failure is likely ATN in the setting of sepsis. CT abdomen without any hydronephrosis. He is currently oliguric hence I do not have a urine analysis for examination. Was initiated on dialysis for fluid overload and azotemia. Will plan for dialysis today. Reviewed chest x-ray. Mostly left-sided infiltrate. Will plan for 1 to 2 L of fluid removal. Pneumonia. Left multilobar pneumonia. Sputum is positive for strep pneumonia. On antibiotics as per primary Atrial fibrillation. On amiodarone drip. History of coronary artery disease status post bypass graft and aortic valve replacement about a year ago.
[2019-07-21 11:45] LABS: Bedside Glucose 131 mg/dL (70-110)
--- NOTE | 2019-07-21 12:09 | PN.ID_ITS ---
Patient Problems: Active and Suspected Problems (Last Reviewed 07/14/19 @ 18:38 by Joan Charles) Severe sepsis (Acute) Community acquired pneumonia (Acute) Subjective: On vent, in icu, eyes open - Physical Exam Vitals/I&O's: Vital Signs Temp Pulse Resp BP Pulse Ox 98.3 F 102 H 18 168/70 H 94 07/21/19 05:00 07/21/19 11:55 07/21/19 11:55 07/21/19 08:33 07/21/19 11:55 Oxygen Flow Rate (L/min) 50 Oxygen Delivery Method Mechanical Ventilator Weight: 75.9 kg Body Mass Index (BMI) 25.4 Intake and Output for Last 24 Hours 07/19/19 07/20/19 07/21/19 23:59 23:59 23:59 Intake Total 1701.24 / 1710.94 1701.39 / 2205.74 1433.77 / 1433.77 Output Total 1095 / 1145 4390 / 4400 Balance 606.24 / 565.94 -2688.61 / -2194.26 1423.77 / 1423.77 General: No apparent distress Lungs: - - coarse bilat Cardiovascular: Tachycardic Abdomen: Soft, Non Tender, Non-Distended Skin: No rashes Microbiology Past 72 Hours 07/17/19 09:00 Sputum, Induced/Lukens Gram Stain - Final 07/17/19 09:00 Sputum, Induced/Lukens Respiratory Culture - Preliminary Possible Fungus 07/16/19 21:00 Sputum, Expectorated/Coughed Gram Stain - Final 07/16/19 21:00 Sputum, Expectorated/Coughed Respiratory Culture - Final Streptococcus pneumoniae 07/17/19 15:15 Urine Catheter - Barkley Urine Culture - Final Culture exhibits no growth. 07/16/19 16:30 Urine Catheter - Catheter Urine Culture - Final Culture exhibits no growth. 07/19/19 06:35 Gastric Fluid/Contents Gastric Occult Blood - Final Occult Blood Positive 07/16/19 11:50 Blood Culture (Wb) - Anticubital Left Blood Culture - Preliminary No growth in 48 hours. 07/16/19 11:15 Blood Culture (Wb) - Arm Left Blood Culture - Preliminary No growth in 48 hours. Laboratory Results 07/20/19 13:48: POC Glucose 99 07/20/19 18:38: POC Glucose 126 H 07/20/19 22:06: POC Glucose 138 H 07/21/19 05:41: POC Glucose 122 H 07/21/19 06:55: WBC 10.3, RBC 3.37 L, Hgb 10.4 L, Hct 30.4 L, MCV 90.2 D, MCH 30.9, MCHC 34.2, RDW Std Deviation 47.4 H, RDW Coeff of Jeanne 14.3, Plt Count 113 L, MPV 9.7, Immature Gran % (Auto) 2.600 H, Neut % (Auto) 88.0 H, Lymph % (Auto) 5.6 L, [place] % (Auto) 2.9, Eos % (Auto) 0.7, Baso % (Auto) 0.2, Absolute Neuts (auto) 9.1 H, Absolute Lymphs (auto) 0.58 L, Nucleated RBC % 0 07/21/19 06:55: Sodium 136, Potassium 4.0, Chloride 100, Carbon Dioxide 25.0, Anion Gap 11, BUN 53 H, Creatinine 4.52 H, Estim Creat Clear Calc 12.59, Est GFR (MDRD) Af Amer 16 L, Est GFR (MDRD) Non-Af 14 L, BUN/Creatinine Ratio 11.7, Glucose 129 H, Calcium 7.3 L, Total Bilirubin 1.10 H, AST 139 H, ALT 57, Alkaline Phosphatase 94, Total Protein 6.3 L, Albumin 1.6 L, Globulin 4.7 H, Albumin/Globulin Ratio 0.3 L 07/21/19 11:39: POC Glucose 131 H Current Medications Acetaminophen (Tylenol Liquid) 650 mg GT Q6H PRN PRN PRN Reason: Pain or Fever Amiodarone HCl (Cordarone) 200 mg GT DAILY [facility] Last Admin: 07/21/19 09:49 Dose: 200 mg Documented by: Chlorhexidine Gluconate () 15 ml PO BID [facility] Last Admin: 07/21/19 09:45 Dose: 15 ml Documented by: Chlorhexidine Gluconate () 1 each TOPICAL DAILY [facility] Last Admin: 07/21/19 09:45 Dose: 1 each Documented by: Glucagon () 1 mg IM .X1 PRN PRN Reason: Hypoglycemia Heparin Sodium (Porcine) (Heparin Na) 5,000 unit SC Q12 [facility] Last Admin: 07/21/19 09:49 Dose: 5,000 unit Documented by: Dextrose (Dextrose 10%-Water) 250 mls @ 999 mls/hr IV .Q16M PRN; Protocol PRN Reason: HYPOGLYCEMIA Fentanyl () 100 mls @ 15 mls/hr IV UD [facility]; Protocol Last Titration: 07/21/19 11:00 Dose: 7.5 mcg/hr, 0.8 mls/hr Documented by: Amiodarone HCl 360 mg/ (Dextrose) 200 mls @ 16.667 mls/hr CONT INF .Q12H [facility] Last Infusion: 07/21/19 09:00 Dose: 0.5 mg/min, 16.7 mls/hr Documented by: Pantoprazole Sodium 40 mg/ (Sodium Chloride) 110 mls @ 330 mls/hr IV Q12 [facility] Last Infusion: 07/21/19 10:05 Dose: Infused Documented by: Dexmedetomidine HCl 400 mcg/ (Sodium Chloride) 100 mls @ 9.488 mls/hr CONT INF .[id number] [facility]; Protocol Last Titration: 07/21/19 10:09 Dose: Infused Documented by: Enteral Nutritional Formula (Vital Af 1.2 [place] Liquid) 1,000 mls @ 60 mls/hr GT .[id number] [facility] Last Admin: 07/21/19 03:29 Dose: Not Given Documented by: Sodium Chloride () 250 mls @ 15 mls/hr IV .[id number] PRN PRN Reason: Saline Flush Last Infusion: 07/21/19 10:25 Dose: 0 mls/hr Documented by: Ampicillin Sodium/Sulbactam Sodium 1,500 mg/ Sodium Chloride 50 mls @ 100 mls/hr IV DAILY [facility] Stop: 07/22/19 23:59 Last Infusion: 07/21/19 10:38 Dose: Infused Documented by: Insulin Human Lispro (Humalog Kwikpen (Bkc)) 0 unit SC Q6 [facility]; Protocol Last Admin: 07/21/19 11:40 Dose: Not Given Documented by: Ipratropium [place] (Atrovent) 0.5 mg INHALATION Q4H.RT [facility] Last Admin: 07/21/19 11:32 Dose: 0.5 mg Documented by: Ondansetron HCl (Zofran) 4 mg IV Q6H PRN PRN PRN Reason: NAUSEA/VOMITING Rosuvastatin Calcium (Crestor) 10 mg GT QHS [facility] Last Admin: 07/20/19 21:57 Dose: 10 mg Documented by: Sodium Chloride () 10 - 40 ml IV UD PRN PRN Reason: SALINE FLUSH Last Admin: 07/19/19 05:11 Dose: 10 ml Documented by: Medical Necessity - Tobacco Use Smoking Status: Former smoker - About 5 to 10 years states less than a pack per day Tobacco Use: Cigarettes, Cigars Route of nutrition/ use of supplements: [] Nutritional Intake: [] IV Site: [] Barkley Catheter: [] - Assessment/Plan Antibiotics: [] Assessment/Plan: [] Active and Suspected Problems (Last Reviewed 07/14/19 @ 18:38 by Joan Charles) Severe sepsis (Acute) Community acquired pneumonia (Acute) Sputum cx with s.pneumo. Repeat sputum showed very rare fungus; doubt this fungus is a true pathogen given amount of growth and overall clinical improvement without antifungal therapy. Cont unasyn. Wbc normal. Remains on vent. Plan on stopping abx tomorrow. Will follow
--- NOTE | 2019-07-21 12:20 | PN.SURG_ITS ---
Patient Problems: Active and Suspected Problems (Last Reviewed 07/14/19 @ 18:38 by Joan Charles) Severe sepsis (Acute) Community acquired pneumonia (Acute) Subjective: intubated and sedated - Physical Exam Vitals/I&O's: Vital Signs Temp Pulse Resp BP Pulse Ox 98.3 F 102 H 18 168/70 H 94 07/21/19 05:00 07/21/19 11:55 07/21/19 11:55 07/21/19 08:33 07/21/19 11:55 Oxygen Flow Rate (L/min) 50 Oxygen Delivery Method Mechanical Ventilator Weight: 75.9 kg Body Mass Index (BMI) 25.4 Intake and Output for Last 24 Hours 07/19/19 07/20/19 07/21/19 23:59 23:59 23:59 Intake Total 1701.24 / 1710.94 1701.39 / 2205.74 1433.77 / 1433.77 Output Total 1095 / 1145 4390 / 4400 Balance 606.24 / 565.94 -2688.61 / -2194.26 1423.77 / 1423.77 Neck: - - right IJ dialysis site dressing intact Lungs: - - coarse breath sounds left worse than right Cardiovascular: Regular rate, Regular Rhythm Abdomen: Bowel Sounds Present, Soft, Non Tender, Hypoactive Bowel Sounds Microbiology Past 72 Hours 07/17/19 09:00 Sputum, Induced/Lukens Gram Stain - Final 07/17/19 09:00 Sputum, Induced/Lukens Respiratory Culture - Preliminary Possible Fungus 07/16/19 21:00 Sputum, Expectorated/Coughed Gram Stain - Final 07/16/19 21:00 Sputum, Expectorated/Coughed Respiratory Culture - Final Streptococcus pneumoniae 07/17/19 15:15 Urine Catheter - Barkley Urine Culture - Final Culture exhibits no growth. 07/16/19 16:30 Urine Catheter - Catheter Urine Culture - Final Culture exhibits no growth. 07/19/19 06:35 Gastric Fluid/Contents Gastric Occult Blood - Final Occult Blood Positive 07/16/19 11:50 Blood Culture (Wb) - Anticubital Left Blood Culture - Preliminary No growth in 48 hours. 07/16/19 11:15 Blood Culture (Wb) - Arm Left Blood Culture - Preliminary No growth in 48 hours. Laboratory Results 07/20/19 13:48: POC Glucose 99 07/20/19 18:38: POC Glucose 126 H 07/20/19 22:06: POC Glucose 138 H 07/21/19 05:41: POC Glucose 122 H 07/21/19 06:55: WBC 10.3, RBC 3.37 L, Hgb 10.4 L, Hct 30.4 L, MCV 90.2 D, MCH 30.9, MCHC 34.2, RDW Std Deviation 47.4 H, RDW Coeff of Jeanne 14.3, Plt Count 113 L, MPV 9.7, Immature Gran % (Auto) 2.600 H, Neut % (Auto) 88.0 H, Lymph % (Auto) 5.6 L, [place] % (Auto) 2.9, Eos % (Auto) 0.7, Baso % (Auto) 0.2, Absolute Neuts (auto) 9.1 H, Absolute Lymphs (auto) 0.58 L, Nucleated RBC % 0 07/21/19 06:55: Sodium 136, Potassium 4.0, Chloride 100, Carbon Dioxide 25.0, Anion Gap 11, BUN 53 H, Creatinine 4.52 H, Estim Creat Clear Calc 12.59, Est GFR (MDRD) Af Amer 16 L, Est GFR (MDRD) Non-Af 14 L, BUN/Creatinine Ratio 11.7, Glucose 129 H, Calcium 7.3 L, Total Bilirubin 1.10 H, AST 139 H, ALT 57, Alkaline Phosphatase 94, Total Protein 6.3 L, Albumin 1.6 L, Globulin 4.7 H, Albumin/Globulin Ratio 0.3 L 07/21/19 11:39: POC Glucose 131 H Current Medications Acetaminophen (Tylenol Liquid) 650 mg GT Q6H PRN PRN PRN Reason: Pain or Fever Amiodarone HCl (Cordarone) 200 mg GT DAILY [facility] Last Admin: 07/21/19 09:49 Dose: 200 mg Documented by: Chlorhexidine Gluconate () 15 ml PO BID [facility] Last Admin: 07/21/19 09:45 Dose: 15 ml Documented by: Chlorhexidine Gluconate () 1 each TOPICAL DAILY [facility] Last Admin: 07/21/19 09:45 Dose: 1 each Documented by: Glucagon () 1 mg IM .X1 PRN PRN Reason: Hypoglycemia Heparin Sodium (Porcine) (Heparin Na) 5,000 unit SC Q12 [facility] Last Admin: 07/21/19 09:49 Dose: 5,000 unit Documented by: Dextrose (Dextrose 10%-Water) 250 mls @ 999 mls/hr IV .Q16M PRN; Protocol PRN Reason: HYPOGLYCEMIA Fentanyl () 100 mls @ 15 mls/hr IV UD [facility]; Protocol Last Titration: 07/21/19 11:00 Dose: 7.5 mcg/hr, 0.8 mls/hr Documented by: Amiodarone HCl 360 mg/ (Dextrose) 200 mls @ 16.667 mls/hr CONT INF .Q12H [facility] Last Infusion: 07/21/19 09:00 Dose: 0.5 mg/min, 16.7 mls/hr Documented by: Pantoprazole Sodium 40 mg/ (Sodium Chloride) 110 mls @ 330 mls/hr IV Q12 [facility] Last Infusion: 07/21/19 10:05 Dose: Infused Documented by: Dexmedetomidine HCl 400 mcg/ (Sodium Chloride) 100 mls @ 9.488 mls/hr CONT INF .[id number] [facility]; Protocol Last Titration: 07/21/19 10:09 Dose: Infused Documented by: Enteral Nutritional Formula (Vital Af 1.2 [place] Liquid) 1,000 mls @ 60 mls/hr GT .[id number] [facility] Last Admin: 07/21/19 03:29 Dose: Not Given Documented by: Sodium Chloride () 250 mls @ 15 mls/hr IV .[id number] PRN PRN Reason: Saline Flush Last Infusion: 07/21/19 10:25 Dose: 0 mls/hr Documented by: Ampicillin Sodium/Sulbactam Sodium 1,500 mg/ Sodium Chloride 50 mls @ 100 mls/hr IV DAILY [facility] Stop: 07/22/19 23:59 Last Infusion: 07/21/19 10:38 Dose: Infused Documented by: Insulin Human Lispro (Humalog Kwikpen (Bkc)) 0 unit SC Q6 [facility]; Protocol Last Admin: 07/21/19 11:40 Dose: Not Given Documented by: Ipratropium [place] (Atrovent) 0.5 mg INHALATION Q4H.RT [facility] Last Admin: 07/21/19 11:32 Dose: 0.5 mg Documented by: Ondansetron HCl (Zofran) 4 mg IV Q6H PRN PRN PRN Reason: NAUSEA/VOMITING Rosuvastatin Calcium (Crestor) 10 mg GT QHS [facility] Last Admin: 07/20/19 21:57 Dose: 10 mg Documented by: Sodium Chloride () 10 - 40 ml IV UD PRN PRN Reason: SALINE FLUSH Last Admin: 07/19/19 05:11 Dose: 10 ml Documented by: Medical Necessity - Tobacco Use Smoking Status: Former smoker - About 5 to 10 years states less than a pack per day Tobacco Use: Cigarettes, Cigars Assessment/Plan All Active Problems (Last Reviewed 07/14/19 @ 18:38 by Joan Charles) Severe sepsis (Acute) Community acquired pneumonia (Acute) 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) Atelectasis (Acute) 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) 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 Pos tprocedure chest which demonstrated no pneumothorax patient patient was dialyzed yesterday successfully with removal of approximately 1.5 L of fluid. Clinically stable today. Chest x-ray today demonstrates good positioning the catheter and no signs of delayed pneumothorax. Patient underwent CT scan of the abdomen and pelvis ith oral and IV contrast. Patient has a intestinal nonrotation. This is a Finding but should not affect current treatment options. He does seem to have gastric ileus with contrast in the stomach and just a scant amount of contrast in the proximal duodenum and small bowel but does not have signs of distended small bowel suggesting an obstruction. Likely this would be ileus from his multisystem organ failure. Will sign off for now.
[2019-07-21] MEDS: fentaNYL drip 100 ML 0.8 MCG IV (14:05)
[2019-07-21] MEDS: Vital AF 1.2 Cal Liquid 1,000 ML 60 ML GT (16:16)
--- NOTE | 2019-07-21 19:11 | PN_ITS ---
Patient Problems: Active and Suspected Problems (Last Reviewed 07/14/19 @ 18:38 by Joan Charles) Severe sepsis (Acute) Community acquired pneumonia (Acute) Subjective: Patient was seen and examined today, he remains on the ventilator at this time, patient's white blood cell count was 10.3, creatinine today was 4.52, BUN was 53. Patient was seen by infectious diseases today, it is their opinion that the fungus in the patient's sputum was not a true pathogen. It was recommended that present antibiotics be continued. - Physical Exam Vitals/I&O's: Vital Signs Temp Pulse Resp BP Pulse Ox 99.2 F H 91 14 166/70 H 96 07/21/19 17:00 07/21/19 17:57 07/21/19 17:57 07/21/19 17:57 07/21/19 17:57 Oxygen Flow Rate (L/min) 50 Oxygen Delivery Method Mechanical Ventilator Weight: 75.9 kg Body Mass Index (BMI) 25.4 Intake and Output for Last 24 Hours 07/19/19 07/20/19 07/21/19 23:59 23:59 23:59 Intake Total 1701.24 / 1710.94 1701.39 / 2205.74 1776.14 / 1776.14 Output Total 1095 / 1145 4390 / 4400 85 / 85 Balance 606.24 / 565.94 -2688.61 / -2194.26 1691.14 / 1691.14 General: - - Patient appears alert but is mildly sedated on the ventilator. HEENT: Atraumatic, PERRLA, EOMI, Normocephalic Oral: Moist Mucosa Neck: Supple, Trachea Midline, Thyroid Normal Size and Texture Lungs: Clear to auscultation, Normal air movement, No rhonchi, No wheeze, No rales Cardiovascular: Regular rate, Regular Rhythm, Normal S1, Normal S2, No murmurs, PMI Normal Abdomen: Bowel Sounds Present, Soft, Non Tender Extremities: No edema, Capillary Refill Less than 3 Seconds Skin: No rashes, No breakdown Neurological: Cranial nerves II-XII grossly intact, Neuro grossly intact Psych/Mental Status: - - Patient is lightly sedated on the ventilator, he appears alert at times but does not follow instructions Microbiology Past 72 Hours 07/16/19 11:50 Blood Culture (Wb) - Anticubital Left Blood Culture - Final No growth in 5 days. 07/16/19 11:15 Blood Culture (Wb) - Arm Left Blood Culture - Final No growth in 5 days. 07/17/19 09:00 Sputum, Induced/Lukens Gram Stain - Final 07/17/19 09:00 Sputum, Induced/Lukens Respiratory Culture - Preliminary Possible Fungus 07/16/19 21:00 Sputum, Expectorated/Coughed Gram Stain - Final 07/16/19 21:00 Sputum, Expectorated/Coughed Respiratory Culture - Final Streptococcus pneumoniae 07/17/19 15:15 Urine Catheter - Barkley Urine Culture - Final Culture exhibits no growth. 07/16/19 16:30 Urine Catheter - Catheter Urine Culture - Final Culture exhibits no growth. 07/19/19 06:35 Gastric Fluid/Contents Gastric Occult Blood - Final Occult Blood Positive Laboratory Results 07/20/19 22:06: POC Glucose 138 H 07/21/19 05:41: POC Glucose 122 H 07/21/19 06:55: WBC 10.3, RBC 3.37 L, Hgb 10.4 L, Hct 30.4 L, MCV 90.2 D, MCH 30.9, MCHC 34.2, RDW Std Deviation 47.4 H, RDW Coeff of Jeanne 14.3, Plt Count 113 L, MPV 9.7, Immature Gran % (Auto) 2.600 H, Neut % (Auto) 88.0 H, Lymph % (Auto) 5.6 L, [place] % (Auto) 2.9, Eos % (Auto) 0.7, Baso % (Auto) 0.2, Absolute Neuts (auto) 9.1 H, Absolute Lymphs (auto) 0.58 L, Nucleated RBC % 0 07/21/19 06:55: Sodium 136, Potassium 4.0, Chloride 100, Carbon Dioxide 25.0, Anion Gap 11, BUN 53 H, Creatinine 4.52 H, Estim Creat Clear Calc 12.59, Est GFR (MDRD) Af Amer 16 L, Est GFR (MDRD) Non-Af 14 L, BUN/Creatinine Ratio 11.7, Glucose 129 H, Calcium 7.3 L, Total Bilirubin 1.10 H, AST 139 H, ALT 57, Alkaline Phosphatase 94, Total Protein 6.3 L, Albumin 1.6 L, Globulin 4.7 H, Albumin/Globulin Ratio 0.3 L 07/21/19 11:39: POC Glucose 131 H Current Medications Acetaminophen (Tylenol Liquid) 650 mg GT Q6H PRN PRN PRN Reason: Pain or Fever Amiodarone HCl (Cordarone) 200 mg GT DAILY [facility] Last Admin: 07/21/19 09:49 Dose: 200 mg Documented by: Chlorhexidine Gluconate () 15 ml PO BID GIANNA Last Admin: 07/21/19 09:45 Dose: 15 ml Documented by: Chlorhexidine Gluconate () 1 each TOPICAL DAILY GIANNA Last Admin: 07/21/19 09:45 Dose: 1 each Documented by: Glucagon () 1 mg IM .X1 PRN PRN Reason: Hypoglycemia Heparin Sodium (Porcine) (Heparin Na) 5,000 unit SC Q12 [facility] Last Admin: 07/21/19 09:49 Dose: 5,000 unit Documented by: Dextrose (Dextrose 10%-Water) 250 mls @ 999 mls/hr IV .Q16M PRN; Protocol PRN Reason: HYPOGLYCEMIA Fentanyl () 100 mls @ 15 mls/hr IV UD [facility]; Protocol Last Titration: 07/21/19 17:00 Dose: 100 mcg/hr, 10 mls/hr Documented by: Pantoprazole Sodium 40 mg/ (Sodium Chloride) 110 mls @ 330 mls/hr IV Q12 GIANNA Last Infusion: 07/21/19 10:05 Dose: Infused Documented by: Dexmedetomidine HCl 400 mcg/ (Sodium Chloride) 100 mls @ 9.488 mls/hr CONT INF .[id number] [facility]; Protocol Last Admin: 07/21/19 15:39 Dose: Not Given Documented by: Enteral Nutritional Formula (Vital Af 1.2 [place] Liquid) 1,000 mls @ 60 mls/hr GT .[id number] GIANNA Last Admin: 07/21/19 16:16 Dose: 60 mls/hr Documented by: Sodium Chloride () 250 mls @ 15 mls/hr IV .[id number] PRN PRN Reason: Saline Flush Last Infusion: 07/21/19 10:25 Dose: 0 mls/hr Documented by: Ampicillin Sodium/Sulbactam Sodium 1,500 mg/ Sodium Chloride 50 mls @ 100 mls/hr IV DAILY [facility] Stop: 07/22/19 23:59 Last Infusion: 07/21/19 10:38 Dose: Infused Documented by: Insulin Human Lispro (Humalog Kwikpen (Bkc)) 0 unit SC Q6 GIANNA; Protocol Last Admin: 07/21/19 18:51 Dose: Not Given Documented by: Ipratropium [place] (Atrovent) 0.5 mg INHALATION Q4H.RT GIANNA Last Admin: 07/21/19 15:29 Dose: 0.5 mg Documented by: Ondansetron HCl (Zofran) 4 mg IV Q6H PRN PRN PRN Reason: NAUSEA/VOMITING Rosuvastatin Calcium (Crestor) 10 mg GT QHS GIANNA Last Admin: 07/20/19 21:57 Dose: 10 mg Documented by: Sodium Chloride () 10 - 40 ml IV UD PRN PRN Reason: SALINE FLUSH Last Admin: 07/19/19 05:11 Dose: 10 ml Documented by: Medical Necessity - Tobacco Use Smoking Status: Former smoker - About 5 to 10 years states less than a pack per day Tobacco Use: Cigarettes, Cigars Assessment/Plan All Active Problems (Last Reviewed 07/14/19 @ 18:38 by Joan Charles) Severe sepsis (Acute) Community acquired pneumonia (Acute) 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) Atelectasis (Acute) 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) 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) Atrial fibrillation (Acute) Non-rheumatic aortic stenosis (Resolved) #1 acute hypoxemic respiratory failure-secondary to community-acquired pneumonia (Streptococcus pneumoniae)-continue present antibiotics #2 severe sepsis secondary to community-acquired pneumonia-Streptococcus pneumoniae #3 sputum positive for fungus-ID feels that this is likely not a pathogen, no treatment is recommended at this point #4 acute renal failure-patient is currently undergoing dialysis #5 paroxysmal atrial fibrillation-now in sinus rhythm #6 community-acquired pneumonia secondary to Streptococcus pneumoniae #7 atherosclerotic heart disease Code Visit Inpatient E&M: 45681 Subs Hosp L2
--- NOTE | 2019-07-21 19:55 | NURSING ---
During assessment of OGT, air bolus to determine placement. Audible gurgle to area of throat. Upon further examination, OGT was found to have hole chewed through by patient. Removed OGT and replaced with new OGT 16FR. Confirmation of aspiration of yellow, tube feed appearance, liquid and auscultated air bolus in LUQ to Mid abd. STAT XRAY ordered.
--- NOTE | 2019-07-21 20:05 | RAD_ITS ---
STUDY: X-RAY - ABDOMEN/PELVIS REASON FOR EXAM: Male, 79 years old. OG TUBE PLACEMENT TECHNIQUE: Single AP view of the abdomen / pelvis. COMPARISON: July 20, 2019 FINDINGS: There is a left pleural effusion. There are sternotomy wires in place. There is a prosthetic cardiac valve in place. There are mildly distended gas filled loops of small bowel. There is an orogastric tube in place which terminates within the expected region of the proximal gastric fundus. Normal soft tissue structures. There are diffuse degenerative changes of the visualized lumbar spine. RAD/Abdomen Single View (Portable) IMPRESSION: Orogastric tube terminating within the expected region of the proximal gastric fundus. Left pleural effusion. Distended loops of small bowel, may be secondary to an underlying ileus. Electronically Signed: Carol Grier MD at 20:24 EST Tel , Service support ,
--- NOTE | 2019-07-21 22:10 | DIALYSIS ---
Hemodialysis completed x 3 hours. 2100 ml net fluid removed. Patient had some hypotension during treatment. Ending BP 136/81. RIJ HD cath flushed with NS, closed with Heparin. Report given to YUNIOR Brandt.
[2019-07-21] MEDS: fentaNYL drip 100 ML 20 MCG IV (22:29)
[2019-07-22] VITALS (35 sets, daily range): BP systolic 76–159; BP diastolic 42–73; PULSE 93–109; RESP 11–25; TEMP 37.4–37.9; O2SAT 90–97
[2019-07-22 00:01] LABS: Bedside Glucose 94 mg/dL (70-110)
[2019-07-22] MEDS: Ipratropium 0.5 MG/2.5 ML SOLUTION INHALATION ×6 (03:00→23:30)
--- NOTE | 2019-07-22 04:08 | NURSING ---
With tube feed on hold, bathed pt. Upon completion of bath, pt had large emesis of yellowish/green liquid from mouth. OGT to suction with 250cc of residual evacuated. Left OGT to LIWS for remainder of bath. Will not restart tube feed until cleared with physician. Lung sounds remain clear/diminished with pulse ox >96%.
[2019-07-22] MEDS: 0.9% Saline Lock 10 ML Syringe IV ×2 (04:27→22:11)
[2019-07-22] MEDS: CHLORHEXIDINE GLUC 2% CLOTH 1 EACH TOWELETTE TOPICAL (04:28)
--- NOTE | 2019-07-22 04:37 | PCM.PN.INT ---
Subjective: The patient was seen and examined at the bedside this morning. Events from the last 24 hours have been reviewed. The patient currently has a low-grade fever with a T-max overnight of 100.6 ?F. Nursing staff did report that the patient bit through his OG tube yesterday, which required replacement. During his bath overnight, the patient reportedly had an episode of emesis. The copious secretion production that was previously noted is beginning to improve. FiO2 requirement is stable at 40%. Tube feeds have been placed on hold at this time due to what appears to be evidence of an ileus on KUB. The patient tolerated dialysis yesterday with 2.1 L of fluid removed. Objective: The patient's most recent lab work, culture data and imaging studies have all been personally reviewed. Surface echocardiogram revealed moderate concentric LVH with an ejection fraction of 65%. Right ventricular systolic pressure was estimated to be 40 mmHg. Strep and urine Legionella antigens were negative. Sputum culture was positive for Streptococcus pneumoniae. In addition, there was note of possible very rare fungus present as well too. Gastric occult blood was noted to be positive. General: - - Remains intubated and mechanically ventilated. No ventilator dyssynchrony. HEENT: Atraumatic, Normocephalic Oral: No Gingival or Mucosal Lesions/ Ulcerations, - - Endotracheal and OG tubes remain in place Neck: Supple, No Nodes, Trachea Midline, - - Temporary dialysis catheter in place Lungs: No rhonchi, No wheeze, No rales, Diminished Cardiovascular: Normal S1, Normal S2, Murmur, Tachycardic, - - Sinus tachycardia on telemetry Abdomen: Soft, Non Tender, Distended Extremities: No clubbing, No cyanosis, Edema Skin: - - No significant change from previous Musculoskeletal: No Muscle Wasting Lymphatic: No Cervical, Supraclavicular, or Inguinal Adenopathy Neurological: - - No focal neurological deficits. Vital Signs Temp Pulse Resp BP Pulse Ox 99.6 F H 104 H 13 115/49 L 93 07/22/19 03:00 07/22/19 03:00 07/22/19 03:00 07/22/19 03:00 07/22/19 03:00 Oxygen Flow Rate (L/min) 50 Oxygen Delivery Method Mechanical Ventilator Weight: 167 lb 5.294 oz Body Mass Index (BMI) 25.4 Intake and Output for Last 24 Hours 07/20/19 07/21/19 07/22/19 23:59 23:59 23:59 Intake Total 1701.39 / 2205.74 2598.80 / 2718.80 188.33 / 188.33 Output Total 4390 / 4400 2235 / 2235 Balance -2688.61 / -2194.26 363.80 / 483.80 188.33 / 188.33 Labs (Last 48 Hours) 07/19/19 07/20/19 07/20/19 18:21 04:00 05:19 WBC RBC Hgb Hct MCV MCH MCHC RDW Std Deviation RDW Coeff of Jeanne Plt Count MPV Immature Gran % (Auto) Neut % (Auto) Lymph % (Auto) [place] % (Auto) Eos % (Auto) Baso % (Auto) Absolute Neuts (auto) Absolute Lymphs (auto) Nucleated RBC % Differential Comment SCANNED Sodium Potassium Chloride Carbon Dioxide Anion Gap BUN Creatinine Estim Creat Clear Calc Est GFR (MDRD) Af Amer Est GFR (MDRD) Non-Af BUN/Creatinine Ratio Glucose Calcium Total Bilirubin AST ALT Alkaline Phosphatase Total Protein Albumin Globulin Albumin/Globulin Ratio Hep Bs Antigen Non-Reactive Hep Bs Antibody Non-Reactive POC Glucose 86 07/20/19 07/20/19 07/20/19 13:48 18:38 22:06 WBC RBC Hgb Hct MCV MCH MCHC RDW Std Deviation RDW Coeff of Jeanne Plt Count MPV Immature Gran % (Auto) Neut % (Auto) Lymph % (Auto) [place] % (Auto) Eos % (Auto) Baso % (Auto) Absolute Neuts (auto) Absolute Lymphs (auto) Nucleated RBC % Differential Comment Sodium Potassium Chloride Carbon Dioxide Anion Gap BUN Creatinine Estim Creat Clear Calc Est GFR (MDRD) Af Amer Est GFR (MDRD) Non-Af BUN/Creatinine Ratio Glucose Calcium Total Bilirubin AST ALT Alkaline Phosphatase Total Protein Albumin Globulin Albumin/Globulin Ratio Hep Bs Antigen Hep Bs Antibody POC Glucose 99 126 H 138 H 07/21/19 07/21/19 07/21/19 05:41 06:55 06:55 WBC 10.3 RBC 3.37 L Hgb 10.4 L Hct 30.4 L MCV 90.2 D MCH 30.9 MCHC 34.2 RDW Std Deviation 47.4 H RDW Coeff of Jeanne 14.3 Plt Count 113 L MPV 9.7 Immature Gran % (Auto) 2.600 H Neut % (Auto) 88.0 H Lymph % (Auto) 5.6 L [place] % (Auto) 2.9 Eos % (Auto) 0.7 Baso % (Auto) 0.2 Absolute Neuts (auto) 9.1 H Absolute Lymphs (auto) 0.58 L Nucleated RBC % 0 Differential Comment Sodium 136 Potassium 4.0 Chloride 100 Carbon Dioxide 25.0 Anion Gap 11 BUN 53 H Creatinine 4.52 H Estim Creat Clear Calc 12.59 Est GFR (MDRD) Af Amer 16 L Est GFR (MDRD) Non-Af 14 L BUN/Creatinine Ratio 11.7 Glucose 129 H Calcium 7.3 L Total Bilirubin 1.10 H AST 139 H ALT 57 Alkaline Phosphatase 94 Total Protein 6.3 L Albumin 1.6 L Globulin 4.7 H Albumin/Globulin Ratio 0.3 L Hep Bs Antigen Hep Bs Antibody POC Glucose 122 H 07/21/19 07/21/19 07/22/19 11:39 23:53 04:25 WBC Pending RBC Pending Hgb Pending Hct Pending MCV Pending MCH Pending MCHC Pending RDW Std Deviation Pending RDW Coeff of Jeanne Pending Plt Count Pending MPV Immature Gran % (Auto) Neut % (Auto) Pending Lymph % (Auto) [place] % (Auto) Eos % (Auto) Baso % (Auto) Absolute Neuts (auto) Pending Absolute Lymphs (auto) Nucleated RBC % Differential Comment Sodium Potassium Chloride Carbon Dioxide Anion Gap BUN Creatinine Estim Creat Clear Calc Est GFR (MDRD) Af Amer Est GFR (MDRD) Non-Af BUN/Creatinine Ratio Glucose Calcium Total Bilirubin AST ALT Alkaline Phosphatase Total Protein Albumin Globulin Albumin/Globulin Ratio Hep Bs Antigen Hep Bs Antibody POC Glucose 131 H 94 07/22/19 04:25 WBC RBC Hgb Hct MCV MCH MCHC RDW Std Deviation RDW Coeff of Jeanne Plt Count MPV Immature Gran % (Auto) Neut % (Auto) Lymph % (Auto) [place] % (Auto) Eos % (Auto) Baso % (Auto) Absolute Neuts (auto) Absolute Lymphs (auto) Nucleated RBC % Differential Comment Sodium Pending Potassium Pending Chloride Pending Carbon Dioxide Pending Anion Gap Pending BUN Pending Creatinine Pending Estim Creat Clear Calc Est GFR (MDRD) Af Amer Pending Est GFR (MDRD) Non-Af Pending BUN/Creatinine Ratio Pending Glucose Pending Calcium Pending Total Bilirubin AST ALT Alkaline Phosphatase Total Protein Albumin Globulin Albumin/Globulin Ratio Hep Bs Antigen Hep Bs Antibody POC Glucose Microbiology 07/16/19 11:50 Blood Culture (Wb) - Anticubital Left Blood Culture - Final No growth in 5 days. 07/16/19 11:15 Blood Culture (Wb) - Arm Left Blood Culture - Final No growth in 5 days. 07/17/19 09:00 Sputum, Induced/Lukens Gram Stain - Final 07/17/19 09:00 Sputum, Induced/Lukens Respiratory Culture - Preliminary Possible Fungus 07/16/19 21:00 Sputum, Expectorated/Coughed Gram Stain - Final 07/16/19 21:00 Sputum, Expectorated/Coughed Respiratory Culture - Final Streptococcus pneumoniae 07/17/19 15:15 Urine Catheter - Bark[place] Urine Culture - Final Culture exhibits no growth. Clinical Impression(s) from Imaging Studies Chest X-Ray 07/17/19 06:43 IMPRESSION: Progressive left upper lobe infiltrate. Electronically Signed: Behzad Jimenez, at 8:27 EST , Service support , Chest X-Ray 07/17/19 08:33 IMPRESSION: The tip of the endotracheal tube is at 2.1 cm proximal to the donaldo. The tip of the orogastric tube is in the distal stomach. Stable opacification in the left hemithorax as well as increased markings at the right lung base. Electronically Signed: Behzad Jimenez, at 10:02 EST , Service support , Chest X-Ray 07/17/19 12:34 IMPRESSION: A right-sided PICC line catheter has been placed. The tip is at the junction of the superior vena cava and right atrium. The tip of the endotracheal tube should be withdrawn approximately 2 cm. Stable appearance of both lungs. Electronically Signed: Behzad Jimenez, at 13:16 EST , Service support , KUB X-Ray 07/18/19 08:24 IMPRESSION: 1. Mildly reduced patchy airspace disease of the left lung. Small layering right effusion. 2. NG tube tip overlying the distal stomach. Otherwise no evidence of definitive bowel dilatation or air-fluid levels. Electronically Signed: Nader RodneyDO at 9:30 EST , Service support , Abdomen/Pelvis CT 07/19/19 13:21 IMPRESSION: Bibasilar consolidations/atelectasis and pleural effusions. Cholelithiasis. Left adrenal nodule. Right renal cyst. Malrotation is suspected of the GI tract. No bowel obstruction. Fatty density at the inguinal canals. Electronically Signed: Pablo Hooper DO at 17:49 EST Tel [phone], Service support , Chest X-Ray 07/19/19 14:10 IMPRESSION: Worsening left upper lobe infiltrate. Bibasilar infiltrates. Electronically Signed: Pablo Hooper DO at 17:59 EST Tel [phone], Service support , Chest X-Ray 07/20/19 08:09 IMPRESSION: 1. Endotracheal tube, nasogastric tube, right internal jugular temporary dialysis catheter, and right upper extremity PICC all of which are unchanged. 2. Improved left upper lobe pneumonia. 3. Poor inspiration with some bibasilar atelectasis. Electronically Signed: Moe Elam MD at 10:10 EST Tel , Service support , KUB X-Ray 07/21/19 20:05 IMPRESSION: Orogastric tube terminating within the expected region of the proximal gastric fundus. Left pleural effusion. Distended loops of small bowel, may be secondary to an underlying ileus. 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 Continue patient on spontaneous mode of mechanical ventilation, with plans to transition back to assist control overnight. 2. Continue fentanyl for sedation and pain control. 3. Continue antimicrobials per infectious diseases recommendations. 4. Continue medical management of atrial fibrillation per cardiology recommendations. 5. Continue hemodialysis per nephrology recommendations. 6. Continue to hold tube feeds, given evidence of ileus on KUB. 7. Continue GI prophylaxis. IMPRESSIONS: 1. Acute hypoxemic respiratory failure secondary to severe community-acquired pneumonia Unfortunately, the patient continued to decompensate clinically despite the use of noninvasive positive pressure ventilatory support. The patient's respiratory status is also complicated by the fact that he was previously in atrial fibrillation with a rapid ventricular rate. The patient did require intubation on the morning of July 17. The patient has improved from a respiratory status with treatment of his underlying infection and with volume optimization. He is currently tolerating pressure support mode mechanical ventilation, which will be continued today. Ideally, secretion production should improve prior to consideration for potential extubation. The patient will be continued on fentanyl for pain and sedation purposes. Recommend transitioning back to assist control for overnight support. Continue to hold tube feeds. 2. Severe sepsis likely secondary to pneumococcal pneumonia Continue current supportive measures including invasive mechanical ventilatory support and current antimicrobial coverage. The patient is currently growing Streptococcus pneumoniae and there is some note of possible fungus on his second sputum culture from July 17. Infectious diseases is currently following to assist with management. 3. Distributive shock Resolved. The patient became hypotensive following intubation and subsequent initiation of sedative medications. I cannot discount the possibility that a component of the patient's hemodynamic instability may also be secondary to his underlying dysrhythmia and elevated ventricular rate. The patient has been weaned successfully off of vasopressor support. He remains hemodynamically stable at this time. 4. Acute kidney injury Possibly secondary to ischemic ATN in the setting of hemodynamic instability due to the patient's underlying infectious process, atrial fibrillation with rapid ventricular rate and sedation related hypotension. A CT abdomen/pelvis revealed no evidence of an acute intra-abdominal process. The patient did require hemodialysis initiation on July 19. Nephrology is currently following. Will defer ongoing hemodialysis need to nephrology accordingly. 5. Paroxysmal atrial fibrillation with rapid ventricular rate/coronary artery disease status post bypass/aortic valve replacement Resolved. The patient converted from atrial fibrillation back to sinus rhythm with underlying medical management and treatment of his infection, as noted above. Cardiology is following. Continue rate/rhythm control strategy per recommendations. TIME: 37 minutes of critical care time, independent of procedures, was spent addressing the patient's acute hypoxemic respiratory failure, severe sepsis secondary to community-acquired pneumonia, distributive shock, acute kidney injury, paroxysmal atrial fibrillation with rapid ventricular rate, review of all data and collaboration with the care team. ([id number]) Code Visit 9xxxx: [id number] Critical care first hour
[2019-07-22 04:50] LABS: Hematocrit 30.6 % (40-54); Hemoglobin 10.6 g/dL (13.0-16.5); Mean Corp Hgb Conc 34.6 g/dL (32-36); Mean Corpuscular Hgb 31.3 pg (27.0-32.0); Mean Corpuscular Volume 90.3 fL (80-94); Mean Platelet Vol. 10.2 fl (6.2-12.0); POSITIVE COUNT YES; POSITIVE MORPHOLOGY YES; Platelet Count 117 K/mm3 (150-450); RBC Distribution Width CV 14.5 % (11.6-14.6); RBC Distribution Width SD 47.3 fl (35.1-43.9); Red Blood Count 3.39 M/mm3 (4.6-6.2); White Blood Count 12.2 K/mm3 (4.4-11.0)
[2019-07-22 05:12] LABS: Differential Indicated MANUAL DIFF
[2019-07-22 05:21] LABS: Anion Gap 11 (5-15); BUN 45 mg/dL (7-18); Calcium,Total 7.5 mg/dL (8.5-10.1); Chloride 98 mmol/L (98-107); Creatinine, Serum 4.08 mg/dL (0.70-1.30); EST Glomerular Filtration Rate 15 mL/min (>60); Est Glom Filt Rate - Afr Amer 18 mL/min (>60); Estimated Creatinine Clearance 13.95 ml/min; Glucose 104 mg/dL (74-106); Sodium Level 137 mmol/L (136-145)
[2019-07-22 06:25] LABS: Bedside Glucose 101 mg/dL (70-110)
[2019-07-22] MEDS: fentaNYL drip 100 ML 2.5 MCG IV (07:12)
[2019-07-22 07:17] LABS: Neutrophil-Band 1 % (0-5); Neutrophil-Segmented 90 % (47-70); Total Cells Counted 100 (MANUAL DIFF)
[2019-07-22 07:18] LABS: Anisocytosis 1+; Hypochromasia 1+; Lymphocyte 6 % (19-41); Microcytosis 1+; Monocyte 2 % (0-10); Myelocyte 1 (0-0); Platelet Estimate SLT (ADEQ); Platelet Morphology LARGE; Polychromasia RARE
[2019-07-22 07:20] LABS: Absolute Lymphocyte Count 0.73 X10^3/uL (0.83-4.51); Absolute Neutrophil Count 11.1 X10^3/uL (2.0-7.7)
[2019-07-22] MEDS: Chlorhexidine 15 ML PO ×2 (09:56→22:10)
[2019-07-22] MEDS: Heparin Injection (Vial) 5,000 UNIT/ML VIAL 5000 UNIT SC ×2 (10:01→22:16)
[2019-07-22 12:20] LABS: Bedside Glucose 90 mg/dL (70-110)
--- NOTE | 2019-07-22 14:19 | PN_ITS ---
Patient Problems: Active and Suspected Problems (Last Reviewed 07/14/19 @ 18:38 by Joan Charles) Severe sepsis (Acute) Community acquired pneumonia (Acute) Subjective: Patient was seen and examined today, he has an ileus and his tube feedings were stopped. I performed a rectal exam on the patient today-there was no stool in the rectal vault. Patient remains on the ventilator at this time lightly sedated. - Physical Exam Vitals/I&O's: Vital Signs Temp Pulse Resp BP Pulse Ox 99.9 F H 101 H 16 116/58 L 93 07/22/19 13:00 07/22/19 13:00 07/22/19 13:00 07/22/19 13:00 07/22/19 13:00 Oxygen Flow Rate (L/min) 50 Oxygen Delivery Method Mechanical Ventilator Weight: 73.7 kg Body Mass Index (BMI) 25.4 Intake and Output for Last 24 Hours 07/20/19 07/21/19 07/22/19 23:59 23:59 23:59 Intake Total 1701.39 / 2205.74 2598.80 / 2718.80 399.18 / 399.18 Output Total 4390 / 4400 2235 / 2235 330 / 330 Balance -2688.61 / -2194.26 363.80 / 483.80 69.18 / 69.18 General: No apparent distress, Well developed HEENT: Atraumatic, PERRLA, EOMI, Normocephalic Neck: Supple, Trachea Midline, Thyroid Normal Size and Texture Lungs: Clear to auscultation, Normal air movement, No wheeze, No rales, Rhonchi - Scattered expiratory rhonchi were noted bilaterally Cardiovascular: Normal S1, Normal S2, No murmurs, PMI Normal, Irregular Rate, No rub noted Abdomen: Bowel Sounds Present, Soft, Non Tender Extremities: No clubbing, No cyanosis, Capillary Refill Less than 3 Seconds Skin: No rashes, No breakdown Musculoskeletal: No Tenderness to Palpation of Joints or Extremities Neurological: Cranial nerves II-XII grossly intact, Neuro grossly intact Psych/Mental Status: - - Patient is lightly sedated on the ventilator Microbiology Past 72 Hours 07/16/19 11:50 Blood Culture (Wb) - Anticubital Left Blood Culture - Final No growth in 5 days. 07/16/19 11:15 Blood Culture (Wb) - Arm Left Blood Culture - Final No growth in 5 days. 07/17/19 09:00 Sputum, Induced/Lukens Gram Stain - Final 07/17/19 09:00 Sputum, Induced/Lukens Respiratory Culture - Preliminary Possible Fungus 07/16/19 21:00 Sputum, Expectorated/Coughed Gram Stain - Final 07/16/19 21:00 Sputum, Expectorated/Coughed Respiratory Culture - Final Streptococcus pneumoniae 07/17/19 15:15 Urine Catheter - Barkley Urine Culture - Final Culture exhibits no growth. 07/16/19 16:30 Urine Catheter - Catheter Urine Culture - Final Culture exhibits no growth. Laboratory Results 07/21/19 23:53: POC Glucose 94 07/22/19 04:25: WBC 12.2 H, RBC 3.39 L, Hgb 10.6 L, Hct 30.6 L, MCV 90.3, MCH 31.3, MCHC 34.6, RDW Std Deviation 47.3 H, RDW Coeff of Jeanne 14.5, Plt Count 117 L, MPV 10.2, Neut % (Auto) Not Reportable, Absolute Neuts (auto) 11.1 H, Absolute Lymphs (auto) 0.73 L, Total Counted 100, Neutrophils % (Manual) 90 H, Band Neutrophils % 1, Lymphocytes % (Manual) 6 L, Monocytes % (Manual) 2, Myelocytes % 1 H, Diff Path Review May , Platelet Estimate SLT, Plt Morphology Comment LARGE, Polychromasia RARE, Hypochromasia 1+, Anisocytosis 1+, Microcytosis 1+ 07/22/19 04:25: Sodium 137, Potassium 4.0, Chloride 98, Carbon Dioxide 28.0, Anion Gap 11, BUN 45 H, Creatinine 4.08 H, Estim Creat Clear Calc 13.95, Est GFR (MDRD) Af Amer 18 L, Est GFR (MDRD) Non-Af 15 L, BUN/Creatinine Ratio 11.0, Glucose 104, Calcium 7.5 L 07/22/19 06:19: POC Glucose 101 07/22/19 12:13: POC Glucose 90 Current Medications Acetaminophen (Tylenol Liquid) 650 mg GT Q6H PRN PRN PRN Reason: Pain or Fever Amiodarone HCl (Cordarone) 200 mg GT DAILY GIANNA Last Admin: 07/22/19 09:48 Dose: Not Given Documented by: Chlorhexidine Gluconate () 15 ml PO BID GIANNA Last Admin: 07/22/19 09:56 Dose: 15 ml Documented by: Chlorhexidine Gluconate () 1 each TOPICAL DAILY [facility] Last Admin: 07/22/19 04:28 Dose: 1 each Documented by: Glucagon () 1 mg IM .X1 PRN PRN Reason: Hypoglycemia Heparin Sodium (Porcine) (Heparin Na) 5,000 unit SC Q12 [facility] Last Admin: 07/22/19 10:01 Dose: 5,000 unit Documented by: Dextrose (Dextrose 10%-Water) 250 mls @ 999 mls/hr IV .Q16M PRN; Protocol PRN Reason: HYPOGLYCEMIA Fentanyl () 100 mls @ 15 mls/hr IV UD [facility]; Protocol Last Titration: 07/22/19 13:00 Dose: 100 mcg/hr, 10 mls/hr Documented by: Pantoprazole Sodium 40 mg/ (Sodium Chloride) 110 mls @ 330 mls/hr IV Q12 [facility] Last Infusion: 07/22/19 10:28 Dose: Infused Documented by: Dexmedetomidine HCl 400 mcg/ (Sodium Chloride) 100 mls @ 9.488 mls/hr CONT INF .[id number] [facility]; Protocol Last Admin: 07/22/19 04:28 Dose: Not Given Documented by: Enteral Nutritional Formula (Vital Af 1.2 [place] Liquid) 1,000 mls @ 60 mls/hr GT .[id number] [facility] Last Admin: 07/22/19 12:09 Dose: Not Given Documented by: Sodium Chloride () 250 mls @ 15 mls/hr IV .[id number] PRN PRN Reason: Saline Flush Last Admin: 07/21/19 22:51 Dose: 15 mls/hr Documented by: Ampicillin Sodium/Sulbactam Sodium 1,500 mg/ Sodium Chloride 50 mls @ 100 mls/hr IV DAILY [facility] Stop: 07/22/19 23:59 Last Infusion: 07/22/19 10:59 Dose: Infused Documented by: Insulin Human Lispro (Humalog Kwikpen (Bkc)) 0 unit SC Q6 [facility]; Protocol Last Admin: 07/22/19 12:21 Dose: Not Given Documented by: Ipratropium Robbins (Atrovent) 0.5 mg INHALATION Q4H.RT [facility] Last Admin: 07/22/19 10:57 Dose: 0.5 mg Documented by: Ondansetron HCl (Zofran) 4 mg IV Q6H PRN PRN PRN Reason: NAUSEA/VOMITING Rosuvastatin Calcium (Crestor) 10 mg GT QHS GIANNA Last Admin: 07/21/19 22:27 Dose: 10 mg Documented by: Sodium Chloride () 10 - 40 ml IV UD PRN PRN Reason: SALINE FLUSH Last Admin: 07/22/19 04:27 Dose: 10 ml Documented by: Medical Necessity - Tobacco Use Smoking Status: Former smoker Tobacco Use: Cigarettes, Cigars Assessment/Plan All Active Problems (Last Reviewed 07/14/19 @ 18:38 by Joan Charles) Severe sepsis (Acute) Community acquired pneumonia (Acute) 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) Atelectasis (Acute) 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) 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) Atrial fibrillation (Acute) Non-rheumatic aortic stenosis (Resolved) #1 acute hypoxemic respiratory failure-secondary to community-acquired pneumonia (Streptococcus pneumoniae)-continue present antibiotics #2 severe sepsis secondary to community-acquired pneumonia-Streptococcus pneumoniae #3 sputum positive for fungus-ID feels that this is likely not a pathogen, no treatment is recommended at this point #4 acute renal failure-patient is currently undergoing dialysis #5 paroxysmal atrial fibrillation-now in sinus rhythm with PACs #6 community-acquired pneumonia secondary to Streptococcus pneumoniae #7 atherosclerotic heart disease #8 ileus-I will give the patient a Dulcolax suppository today Code Visit Inpatient E&M: [id number] [facility] Hosp L2
[2019-07-22] MEDS: Bisacodyl 10 MG Suppository RECTAL (16:42)
[2019-07-22] MEDS: fentaNYL drip 100 ML 10 MCG IV (17:31)
[2019-07-22 17:56] LABS: Bedside Glucose 92 mg/dL (70-110)
--- NOTE | 2019-07-22 19:30 | NURSING ---
Unable to chart hourly titration for current Fentanyl drip hanging; attempted and received a message that documentation could not occur past infused time. Fentanyl currently infusing at 100mcg/hr, 10ml/hr, thru GUERA PICC; titrations to be documented in nursing notes.
--- NOTE | 2019-07-22 19:39 | NURSING ---
1800- CPOT 0/3. No changes made to titration.
[2019-07-23] VITALS (39 sets, daily range): BP systolic 87–155; BP diastolic 40–70; PULSE 77–99; RESP 11–24; TEMP 36.8–37.7; O2SAT 88–97
--- NOTE | 2019-07-23 | NURSING ---
CPOT assessments for Fentanyl drip being charted Q2h w/ clinical assessments; Fentanyl drip remains running at 100mcg/hr, 10ml/hr.
--- NOTE | 2019-07-23 03:00 | NURSING ---
Fentanyl drip turned down from 100mcg/hr to 75mcg/hr in preparation for SBT this AM. See charted CPOT.
[2019-07-23] MEDS: Ipratropium 0.5 MG/2.5 ML SOLUTION INHALATION ×5 (03:05→19:00)
--- NOTE | 2019-07-23 03:30 | NURSING ---
Cont to titrate Fentanyl drip down for SBT, now at 50mcg/hr. See charted CPOT.
[2019-07-23] MEDS: fentaNYL drip 100 ML 5 MCG IV (05:26)
[2019-07-23 05:46] LABS: Bedside Glucose 95 mg/dL (70-110)
--- NOTE | 2019-07-23 06:30 | NURSING ---
Fentanyl drip turned off in prep for extubation, at bedside.
[2019-07-23 06:35] LABS: Absolute Lymphocyte Count 0.74 X10^3/uL (0.83-4.51); Absolute Neutrophil Count 9.4 X10^3/uL (2.0-7.7); Basophil# 0.03 X10^3/uL; Basophil% 0.3 % (0-1); Eosinophil# 0.08 X10^3/uL; Eosinophils% 0.7 % (0-5); Hematocrit 29.1 % (40-54); Hemoglobin 10.1 g/dL (13.0-16.5); Lymphocyte # 0.74 X10^3/ul (4.0); Lymphocyte % 6.6 % (19-41); Mean Corp Hgb Conc 34.7 g/dL (32-36); Mean Corpuscular Hgb 31.5 pg (27.0-32.0); Mean Corpuscular Volume 90.7 fL (80-94); Mean Platelet Vol. 9.8 fl (6.2-12.0); Monocyte# 0.43 X10^3/uL; Monocyte% 3.8 % (0-10); NRBC Flagged by Analyzer 0 % (0-5); Neutrophil # 9.43 X10^3/uL (2.7-7.7); Neutrophil % 83.6 % (47-70); Platelet Count 163 K/mm3 (150-450); RBC Distribution Width CV 14.7 % (11.6-14.6); RBC Distribution Width SD 48.9 fl (35.1-43.9); Red Blood Count 3.21 M/mm3 (4.6-6.2); White Blood Count 11.3 K/mm3 (4.4-11.0)
[2019-07-23 06:45] LABS: Allen Test POS; Base Excess 0 mmol/L (-2 to +2); Bicarbonate 23.7 mmol/L (22-26); Blood Gas Specimen Type ART; FI02 40; Mode CPAP PS; O2 Delivery Device Vent; PEEP 5; PO2 66 mmHG (75-100); PS 5; SITE L Radial; SO2 94 % (95-99); Time Given 640; Total Carbon Dioxide 25 mmol/L; pCO2 35.1 mmHg (35-45); pH 7.44 (7.35-7.45)
--- NOTE | 2019-07-23 06:52 | NURSING ---
Pt orally and endotracheal suctioned, pt extubated to 5lpm NC w/out difficulty.
[2019-07-23 06:58] LABS: Anion Gap 14 (5-15); BUN 86 mg/dL (7-18); BUN/Creat Ratio 13.7 RATIO (10-20); Calcium,Total 7.9 mg/dL (8.5-10.1); Chloride 100 mmol/L (98-107); Creatinine, Serum 6.29 mg/dL (0.70-1.30); EST Glomerular Filtration Rate 9 mL/min (>60); Est Glom Filt Rate - Afr Amer 11 mL/min (>60); Estimated Creatinine Clearance 9.05 ml/min; Glucose 99 mg/dL (74-106); Magnesium 3.1 mg/dL (1.6-2.6); Phosphorus 7.9 mg/dL (2.5-4.9); Sodium Level 138 mmol/L (136-145)
[2019-07-23] MEDS: Ceftriaxone 1 GM/50 ML BAG IV (07:02)
--- NOTE | 2019-07-23 07:16 | PCM.PN.INT ---
Subjective: Patient did okay overnight. Patient's secretions are reportedly improved per nursing staff. Still had a somewhat elevated temperature overnight. Patient did receive suppository with 2 liquidy bowel movements. Patient did not receive hemodialysis yesterday. General: Alert, Cooperative, No apparent distress, - - Comfortable when observed on spontaneous breathing trial HEENT: Atraumatic, PERRLA, EOMI, Normocephalic, - - No scleral icterus or injection noted Oral: Moist Mucosa, No Gingival or Mucosal Lesions/ Ulcerations Neck: Supple, No JVD, No Nodes, Trachea Midline, - - Hemodialysis line is clean, dry and intact Lungs: No rhonchi, No wheeze, No rales, Diminished, - - Symmetric expansion. Cardiovascular: Regular rate, Regular Rhythm, Normal S1, Normal S2, No murmurs, No rub noted, No Gallop Abdomen: Bowel Sounds Present, Soft, Distended Extremities: No clubbing, No cyanosis, Capillary Refill Less than 3 Seconds, Edema Skin: No rashes, No breakdown Musculoskeletal: No Tenderness to Palpation of Joints or Extremities Lymphatic: No Cervical, Supraclavicular, or Inguinal Adenopathy Neurological: Cranial nerves II-XII grossly intact, Neuro grossly intact, Motor Exam 5/5 strength throughout Psych/Mental Status: Normal Affect, Appropriate Vital Signs Temp Pulse Resp BP Pulse Ox 37.6 C H 89 14 149/61 H 94 07/23/19 06:00 07/23/19 06:00 07/23/19 06:00 07/23/19 06:00 07/23/19 06:00 Oxygen Flow Rate (L/min) 50 Oxygen Delivery Method Mechanical Ventilator Weight: 73.7 kg Body Mass Index (BMI) 25.4 Intake and Output for Last 24 Hours 07/21/19 07/22/19 07/23/19 23:59 23:59 23:59 Intake Total 2598.80 / 2718.80 974.35 / 974.35 99.4 / 99.4 Output Total 2235 / 2235 375 / 375 / Balance 363.80 / 483.80 599.35 / 599.35 79.4 / 79.4 Labs (Last 48 Hours) 07/21/19 07/21/19 07/21/19 06:55 06:55 11:39 WBC 10.3 RBC 3.37 L Hgb 10.4 L Hct 30.4 L MCV 90.2 D MCH 30.9 MCHC 34.2 RDW Std Deviation 47.4 H RDW Coeff of Jeanne 14.3 Plt Count 113 L MPV 9.7 Immature Gran % (Auto) 2.600 H Neut % (Auto) 88.0 H Lymph % (Auto) 5.6 L [place] % (Auto) 2.9 Eos % (Auto) 0.7 Baso % (Auto) 0.2 Absolute Neuts (auto) 9.1 H Absolute Lymphs (auto) 0.58 L Total Counted Neutrophils % (Manual) Band Neutrophils % Lymphocytes % (Manual) Monocytes % (Manual) Myelocytes % Nucleated RBC % 0 Diff Path Review Platelet Estimate Plt Morphology Comment Polychromasia Hypochromasia Anisocytosis Microcytosis Specimen Type Sample Site pH Bicarbonate Actual POC Total CO2 Base Excess O2 Saturation O2 % ABG pCO2 ABG pO2 Arturo Test O2 Delivery Device Vent Mode POC PEEP POC Pressure Suppt Blood Gas Notified Whom Blood Gas Notified Time Sodium 136 Potassium 4.0 Chloride 100 Carbon Dioxide 25.0 Anion Gap 11 BUN 53 H Creatinine 4.52 H Estim Creat Clear Calc 12.59 Est GFR (MDRD) Af Amer 16 L Est GFR (MDRD) Non-Af 14 L BUN/Creatinine Ratio 11.7 Glucose 129 H Calcium 7.3 L Phosphorus Magnesium Total Bilirubin 1.10 H AST 139 H ALT 57 Alkaline Phosphatase 94 Total Protein 6.3 L Albumin 1.6 L Globulin 4.7 H Albumin/Globulin Ratio 0.3 L POC Glucose 131 H 07/21/19 07/22/19 07/22/19 23:53 04:25 04:25 WBC 12.2 H RBC 3.39 L Hgb 10.6 L Hct 30.6 L MCV 90.3 MCH 31.3 MCHC 34.6 RDW Std Deviation 47.3 H RDW Coeff of Jeanne 14.5 Plt Count 117 L MPV 10.2 Immature Gran % (Auto) Neut % (Auto) Not Reportable Lymph % (Auto) [place] % (Auto) Eos % (Auto) Baso % (Auto) Absolute Neuts (auto) 11.1 H Absolute Lymphs (auto) 0.73 L Total Counted 100 Neutrophils % (Manual) 90 H Band Neutrophils % 1 Lymphocytes % (Manual) 6 L Monocytes % (Manual) 2 Myelocytes % 1 H Nucleated RBC % Diff Path Review May foll Platelet Estimate SLT Plt Morphology Comment LARGE Polychromasia RARE Hypochromasia 1+ Anisocytosis 1+ Microcytosis 1+ Specimen Type Sample Site pH Bicarbonate Actual POC Total CO2 Base Excess O2 Saturation O2 % ABG pCO2 ABG pO2 Arturo Test O2 Delivery Device Vent Mode POC PEEP POC Pressure Suppt Blood Gas Notified Whom Blood Gas Notified Time Sodium 137 Potassium 4.0 Chloride 98 Carbon Dioxide 28.0 Anion Gap 11 BUN 45 H Creatinine 4.08 H Estim Creat Clear Calc 13.95 Est GFR (MDRD) Af Amer 18 L Est GFR (MDRD) Non-Af 15 L BUN/Creatinine Ratio 11.0 Glucose 104 Calcium 7.5 L Phosphorus Magnesium Total Bilirubin AST ALT Alkaline Phosphatase Total Protein Albumin Globulin Albumin/Globulin Ratio POC Glucose 94 07/22/19 07/22/19 07/22/19 06:19 12:13 17:51 WBC RBC Hgb Hct MCV MCH MCHC RDW Std Deviation RDW Coeff of Jeanne Plt Count MPV Immature Gran % (Auto) Neut % (Auto) Lymph % (Auto) [place] % (Auto) Eos % (Auto) Baso % (Auto) Absolute Neuts (auto) Absolute Lymphs (auto) Total Counted Neutrophils % (Manual) Band Neutrophils % Lymphocytes % (Manual) Monocytes % (Manual) Myelocytes % Nucleated RBC % Diff Path Review Platelet Estimate Plt Morphology Comment Polychromasia Hypochromasia Anisocytosis Microcytosis Specimen Type Sample Site pH Bicarbonate Actual POC Total CO2 Base Excess O2 Saturation O2 % ABG pCO2 ABG pO2 Arturo Test O2 Delivery Device Vent Mode POC PEEP POC Pressure Suppt Blood Gas Notified Whom Blood Gas Notified Time Sodium Potassium Chloride Carbon Dioxide Anion Gap BUN Creatinine Estim Creat Clear Calc Est GFR (MDRD) Af Amer Est GFR (MDRD) Non-Af BUN/Creatinine Ratio Glucose Calcium Phosphorus Magnesium Total Bilirubin AST ALT Alkaline Phosphatase Total Protein Albumin Globulin Albumin/Globulin Ratio POC Glucose 101 90 92 07/23/19 07/23/19 07/23/19 05:41 06:25 06:25 WBC 11.3 H RBC 3.21 L Hgb 10.1 L Hct 29.1 L MCV 90.7 MCH 31.5 MCHC 34.7 RDW Std Deviation 48.9 H RDW Coeff of Jeanne 14.7 H Plt Count 163 MPV 9.8 Immature Gran % (Auto) 5.000 H Neut % (Auto) 83.6 H Lymph % (Auto) 6.6 L [place] % (Auto) 3.8 Eos % (Auto) 0.7 Baso % (Auto) 0.3 Absolute Neuts (auto) 9.4 H Absolute Lymphs (auto) 0.74 L Total Counted Neutrophils % (Manual) Band Neutrophils % Lymphocytes % (Manual) Monocytes % (Manual) Myelocytes % Nucleated RBC % 0 Diff Path Review Platelet Estimate Plt Morphology Comment Polychromasia Hypochromasia Anisocytosis Microcytosis Specimen Type Sample Site pH Bicarbonate Actual POC Total CO2 Base Excess O2 Saturation O2 % ABG pCO2 ABG pO2 Arturo Test O2 Delivery Device Vent Mode POC PEEP POC Pressure Suppt Blood Gas Notified Whom Blood Gas Notified Time Sodium 138 Potassium 4.0 Chloride 100 Carbon Dioxide 24.0 Anion Gap 14 BUN 86 H Creatinine 6.29 H Estim Creat Clear Calc 9.05 Est GFR (MDRD) Af Amer 11 L Est GFR (MDRD) Non-Af 9 L BUN/Creatinine Ratio 13.7 Glucose 99 Calcium 7.9 L Phosphorus 7.9 H Magnesium 3.1 H Total Bilirubin AST ALT Alkaline Phosphatase Total Protein Albumin Globulin Albumin/Globulin Ratio POC Glucose 95 07/23/19 06:42 WBC RBC Hgb Hct MCV MCH MCHC RDW Std Deviation RDW Coeff of Jeanne Plt Count MPV Immature Gran % (Auto) Neut % (Auto) Lymph % (Auto) [place] % (Auto) Eos % (Auto) Baso % (Auto) Absolute Neuts (auto) Absolute Lymphs (auto) Total Counted Neutrophils % (Manual) Band Neutrophils % Lymphocytes % (Manual) Monocytes % (Manual) Myelocytes % Nucleated RBC % Diff Path Review Platelet Estimate Plt Morphology Comment Polychromasia Hypochromasia Anisocytosis Microcytosis Specimen Type ART Sample Site L Radial pH 7.44 Bicarbonate Actual 23.7 POC Total CO2 25 Base Excess 0 O2 Saturation 94 L O2 % 40 ABG pCO2 35.1 ABG pO2 66 L Arturo Test POS O2 Delivery Device Vent Vent Mode CPAP PS POC PEEP 5 POC Pressure Suppt 5 Blood Gas Notified Whom ICU MD Blood Gas Notified Time 640 Sodium Potassium Chloride Carbon Dioxide Anion Gap BUN Creatinine Estim Creat Clear Calc Est GFR (MDRD) Af Amer Est GFR (MDRD) Non-Af BUN/Creatinine Ratio Glucose Calcium Phosphorus Magnesium Total Bilirubin AST ALT Alkaline Phosphatase Total Protein Albumin Globulin Albumin/Globulin Ratio POC Glucose Microbiology 07/16/19 11:50 Blood Culture (Wb) - Anticubital Left Blood Culture - Final No growth in 5 days. 07/16/19 11:15 Blood Culture (Wb) - Arm Left Blood Culture - Final No growth in 5 days. 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 Plan for extubation 2. Discontinue fentanyl for sedation and pain control. 3. Await infectious disease recommendations 4. Continue medical management of atrial fibrillation per cardiology recommendations. 5. Continue hemodialysis per nephrology recommendations. 6. Conservative management for ileus 7. Continue GI prophylaxis. IMPRESSIONS: 1. Acute hypoxemic respiratory failure secondary to severe community-acquired pneumonia Patient did well on spontaneous breathing trial this morning. Patient reportedly has improved secretions per respiratory and nursing staff. Patient was successfully extubated under my direct supervision. Unclear duration of antibiotics, so ceftriaxone was ordered for today. Await infectious disease evaluation later today. 2. Severe sepsis likely secondary to pneumococcal pneumonia Patient grew pneumococcal species on July 17. Patient has been treated for what appears to be 5 days, but was not seen by infectious disease yesterday. Will give a dose of ceftriaxone today until formal recommendations can be made. Okay to discontinue if infectious disease believes this is a sufficient course. 3. Distributive shock Resolved. Patient likely with multifactorial shock initially with both underlying dysrhythmia with elevated ventricular rate and pneumococcal shock. 4. Acute kidney injury Possibly secondary to ischemic ATN in the setting of hemodynamic instability due to the patient's underlying infectious process, atrial fibrillation with rapid ventricular rate and sedation related hypotension. A CT abdomen/pelvis revealed no evidence of an acute intra-abdominal process. Nephrology is currently following. Significant elevation of creatinine overnight. Volume removal if able would be recommended from a critical care standpoint. 5. Paroxysmal atrial fibrillation with rapid ventricular rate/coronary artery disease status post bypass/aortic valve replacement Resolved. The patient converted from atrial fibrillation back to sinus rhythm with underlying medical management and treatment of his infection, as noted above. Cardiology is following. Continue rate/rhythm control strategy per recommendations. TIME: 32 minutes of critical care time, independent of procedures, was spent addressing the patient's acute hypoxemic respiratory failure, severe sepsis secondary to pneumococcal pneumonia, acute kidney injury, paroxysmal atrial fibrillation with rapid ventricular rate, review of all data and collaboration with the care team. (6 AM to 7 AM) Code Visit [id number]: [id number] Critical care first hour
--- NOTE | 2019-07-23 09:54 | CASEMGMT ---
SW participated in ICU rounds this morning, pt was extubated this morning. SW spoke w/pt, , daughter and son in law after rounds in regard to discharge plan. They still plan to take pt home at discharge, states their son lives with them and they have daughters nearby as well who can assist. SW spoke w/them about how therapy went yesterday, as pt was a maximum assist of two people. states that once pt gets some strength back and is able to get up he will get going, she does not think pt will need rehab in a nursing facility at this time. SW did give lists of SNFs in [facility] that take pt's insurance, with the Medicare Star ratings, in the event something changes and they are in agreement with fpc placement. Otherwise, at this time, pt and family politely declining SNF placement. SW remains available should this change. ELLIE Bedolla
--- NOTE | 2019-07-23 10:29 | PN_ITS ---
Patient Problems: Active and Suspected Problems (Last Reviewed 07/14/19 @ 18:38 by Joan Charles) Severe sepsis (Acute) Community acquired pneumonia (Acute) Subjective: She was seen and examined today, talked briefly with his family who was in his room, he was extubated today and appears to be tolerating BiPAP well. Patient had a bowel movement yesterday - Physical Exam Vitals/I&O's: Vital Signs Temp Pulse Resp BP Pulse Ox 99.6 F H 86 13 137/67 H 93 07/23/19 07:00 07/23/19 09:00 07/23/19 09:00 07/23/19 09:00 07/23/19 09:00 Oxygen Flow Rate (L/min) 12 Oxygen Delivery Method Venturi Mask Weight: 73.7 kg Body Mass Index (BMI) 25.4 Intake and Output for Last 24 Hours 07/21/19 07/22/19 07/23/19 23:59 23:59 23:59 Intake Total 2598.80 / 2718.80 974.35 / 974.35 104.73 / 104.73 Output Total 2235 / 2235 375 / 375 / Balance 363.80 / 483.80 599.35 / 599.35 84.73 / 84.73 General: Alert, Oriented x3, Cooperative, No apparent distress, Well developed HEENT: Atraumatic, PERRLA, EOMI, Normocephalic Oral: Moist Mucosa Neck: Supple, Trachea Midline, Thyroid Normal Size and Texture Lungs: Normal air movement, Rhonchi - Scattered expiratory rhonchi bilaterally Cardiovascular: Regular rate, Regular Rhythm, No murmurs, No Ectopic Activity, PMI Normal Abdomen: Bowel Sounds Present, Soft, Non Tender, Distended - Mild abdominal distention is noted Extremities: No edema, Capillary Refill Less than 3 Seconds Skin: No rashes, No breakdown Musculoskeletal: No Tenderness to Palpation of Joints or Extremities Neurological: Cranial nerves II-XII grossly intact, Neuro grossly intact, Sensory exam intact to light touch and pain Psych/Mental Status: Normal Affect, Appropriate Microbiology Past 72 Hours 07/16/19 11:50 Blood Culture (Wb) - Anticubital Left Blood Culture - Final No growth in 5 days. 07/16/19 11:15 Blood Culture (Wb) - Arm Left Blood Culture - Final No growth in 5 days. 07/17/19 09:00 Sputum, Induced/Lukens Gram Stain - Final 07/17/19 09:00 Sputum, Induced/Lukens Respiratory Culture - Preliminary Possible Fungus 07/16/19 21:00 Sputum, Expectorated/Coughed Gram Stain - Final 07/16/19 21:00 Sputum, Expectorated/Coughed Respiratory Culture - Final Streptococcus pneumoniae 07/17/19 15:15 Urine Catheter - Barkley Urine Culture - Final Culture exhibits no growth. Laboratory Results 07/22/19 12:13: POC Glucose 90 07/22/19 17:51: POC Glucose 92 07/23/19 05:41: POC Glucose 95 07/23/19 06:25: WBC 11.3 H, RBC 3.21 L, Hgb 10.1 L, Hct 29.1 L, MCV 90.7, MCH 31.5, MCHC 34.7, RDW Std Deviation 48.9 H, RDW Coeff of Jeanne 14.7 H, Plt Count 163, MPV 9.8, Immature Gran % (Auto) 5.000 H, Neut % (Auto) 83.6 H, Lymph % (Auto) 6.6 L, [place] % (Auto) 3.8, Eos % (Auto) 0.7, Baso % (Auto) 0.3, Absolute Neuts (auto) 9.4 H, Absolute Lymphs (auto) 0.74 L, Nucleated RBC % 0 07/23/19 06:25: Sodium 138, Potassium 4.0, Chloride 100, Carbon Dioxide 24.0, Anion Gap 14, BUN 86 H, Creatinine 6.29 H, Estim Creat Clear Calc 9.05, Est GFR (MDRD) Af Amer 11 L, Est GFR (MDRD) Non-Af 9 L, BUN/Creatinine Ratio 13.7, Glucose 99, Calcium 7.9 L, Phosphorus 7.9 H, Magnesium 3.1 H 07/23/19 06:42: Specimen Type ART, Sample Site L Radial, pH 7.44, Bicarbonate Actual 23.7, POC Total CO2 25, Base Excess 0, O2 Saturation 94 L, O2 % 40, ABG pCO2 35.1, ABG pO2 66 L, Arturo Test POS, O2 Delivery Device Vent, Vent Mode CPAP PS, POC PEEP 5, POC Pressure Suppt 5, Blood Gas Notified Whom ICU MD, Blood Gas Notified Time 640 Current Medications Acetaminophen (Tylenol) 650 mg PO Q6H PRN PRN PRN Reason: PAIN 1-10 OR FEVER Amiodarone HCl (Cordarone) 200 mg PO DAILY [facility] Chlorhexidine Gluconate () 1 each TOPICAL DAILY [facility] Last Admin: 07/22/19 04:28 Dose: 1 each Documented by: Glucagon () 1 mg IM .X1 PRN PRN Reason: Hypoglycemia Heparin Sodium (Porcine) (Heparin Na) 5,000 unit SC Q12 [facility] Last Admin: 07/22/19 22:16 Dose: 5,000 unit Documented by: Dextrose (Dextrose 10%-Water) 250 mls @ 999 mls/hr IV .Q16M PRN; Protocol PRN Reason: HYPOGLYCEMIA Sodium Chloride () 250 mls @ 15 mls/hr IV .[id number] PRN PRN Reason: Saline Flush Last Infusion: 07/22/19 15:49 Dose: Infused Documented by: Ceftriaxone Sodium (Rocephin) 1 gm in 50 mls @ 100 mls/hr IV Q24 [facility] Last Admin: 07/23/19 07:02 Dose: 100 mls/hr Documented by: Ipratropium [place] (Atrovent) 0.5 mg INHALATION Q4H.RT [facility] Last Admin: 07/23/19 07:19 Dose: 0.5 mg Documented by: Ondansetron HCl (Zofran) 4 mg IV Q6H PRN PRN PRN Reason: NAUSEA/VOMITING Rosuvastatin Calcium (Crestor) 10 mg PO QHS [facility] Sodium Chloride () 10 - 40 ml IV UD PRN PRN Reason: SALINE FLUSH Last Admin: 07/22/19 22:11 Dose: 10 ml Documented by: Medical Necessity - Tobacco Use Smoking Status: Former smoker Tobacco Use: Cigarettes, Cigars Assessment/Plan All Active Problems (Last Reviewed 07/14/19 @ 18:38 by Joan Charles) Severe sepsis (Acute) Community acquired pneumonia (Acute) 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) Atelectasis (Acute) 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) [facility] (current) use of anticoagulants (Acute) Atrial fibrillation (Acute) Non-rheumatic aortic stenosis (Resolved) #1 acute hypoxemic respiratory failure-secondary to community-acquired pneumonia (Streptococcus pneumoniae)-patient has now been extubated, he will remain in the ICU for now #2 severe sepsis secondary to community-acquired pneumonia-Streptococcus pneumoniae #3 sputum positive for fungus-ID feels that this is likely not a pathogen, no treatment is recommended at this point #4 acute renal failure-patient will probably need dialysis #5 paroxysmal atrial fibrillation-now in sinus rhythm with PACs #6 community-acquired pneumonia secondary to Streptococcus pneumoniae #7 atherosclerotic heart disease #8 ileus-resolving at this time Code Visit Inpatient E&M: 98025 Subs Hosp L2
[2019-07-23] MEDS: CHLORHEXIDINE GLUC 2% CLOTH 1 EACH TOWELETTE TOPICAL (11:38)
[2019-07-23] MEDS: Heparin Injection (Vial) 5,000 UNIT/ML VIAL 5000 UNIT SC ×2 (11:38→22:41)
[2019-07-23 12:47] LABS: Pathologist Review Reviewed
--- NOTE | 2019-07-23 14:25 | PN.ID_ITS ---
Patient Problems: Active and Suspected Problems (Last Reviewed 07/14/19 @ 18:38 by Joan Charles) Severe sepsis (Acute) Community acquired pneumonia (Acute) Subjective: Off vent, family at bedside, denies cough/fever/dyspnea. - Physical Exam Vitals/I&O's: Vital Signs Temp Pulse Resp BP Pulse Ox 99.4 F H 95 24 H 113/40 L 93 07/23/19 12:00 07/23/19 13:00 07/23/19 13:00 07/23/19 13:00 07/23/19 13:00 Oxygen Flow Rate (L/min) 9 Oxygen Delivery Method Nasal Cannula Weight: 73.7 kg Body Mass Index (BMI) 25.4 Intake and Output for Last 24 Hours 07/21/19 07/22/19 07/23/19 23:59 23:59 23:59 Intake Total 2598.80 / 2718.80 974.35 / 974.35 154.73 / 154.73 Output Total 2235 / 2235 375 / 375 270 / 270 Balance 363.80 / 483.80 599.35 / 599.35 -115.27 / -115.27 General: Alert, Cooperative, No apparent distress Lungs: Clear to auscultation, Normal air movement Cardiovascular: Regular rate, Regular Rhythm Abdomen: Soft, Non Tender, Non-Distended Skin: No rashes Microbiology Past 72 Hours 07/16/19 11:50 Blood Culture (Wb) - Anticubital Left Blood Culture - Final No growth in 5 days. 07/16/19 11:15 Blood Culture (Wb) - Arm Left Blood Culture - Final No growth in 5 days. 07/17/19 09:00 Sputum, Induced/Lukens Gram Stain - Final 07/17/19 09:00 Sputum, Induced/Lukens Respiratory Culture - Preliminary Possible Fungus 07/16/19 21:00 Sputum, Expectorated/Coughed Gram Stain - Final 07/16/19 21:00 Sputum, Expectorated/Coughed Respiratory Culture - Final Streptococcus pneumoniae 07/17/19 15:15 Urine Catheter - Barkley Urine Culture - Final Culture exhibits no growth. Laboratory Results 07/22/19 04:25: Diff Path Review Reviewed 07/22/19 17:51: POC Glucose 92 07/23/19 05:41: POC Glucose 95 07/23/19 06:25: WBC 11.3 H, RBC 3.21 L, Hgb 10.1 L, Hct 29.1 L, MCV 90.7, MCH 31.5, MCHC 34.7, RDW Std Deviation 48.9 H, RDW Coeff of Jeanne 14.7 H, Plt Count 163, MPV 9.8, Immature Gran % (Auto) 5.000 H, Neut % (Auto) 83.6 H, Lymph % (Auto) 6.6 L, [place] % (Auto) 3.8, Eos % (Auto) 0.7, Baso % (Auto) 0.3, Absolute Neuts (auto) 9.4 H, Absolute Lymphs (auto) 0.74 L, Nucleated RBC % 0 07/23/19 06:25: Sodium 138, Potassium 4.0, Chloride 100, Carbon Dioxide 24.0, Anion Gap 14, BUN 86 H, Creatinine 6.29 H, Estim Creat Clear Calc 9.05, Est GFR (MDRD) Af Amer 11 L, Est GFR (MDRD) Non-Af 9 L, BUN/Creatinine Ratio 13.7, Glucose 99, Calcium 7.9 L, Phosphorus 7.9 H, Magnesium 3.1 H 07/23/19 06:42: Specimen Type ART, Sample Site L Radial, pH 7.44, Bicarbonate Actual 23.7, POC Total CO2 25, Base Excess 0, O2 Saturation 94 L, O2 % 40, ABG pCO2 35.1, ABG pO2 66 L, Arturo Test POS, O2 Delivery Device Vent, Vent Mode CPAP PS, POC PEEP 5, POC Pressure Suppt 5, Blood Gas Notified Whom ICU MD, Blood Gas Notified Time 640 Current Medications Acetaminophen (Tylenol) 650 mg PO Q6H PRN PRN PRN Reason: PAIN 1-10 OR FEVER Amiodarone HCl (Cordarone) 200 mg PO DAILY [facility] Chlorhexidine Gluconate () 1 each TOPICAL DAILY [facility] Last Admin: 07/23/19 11:38 Dose: 1 each Documented by: Glucagon () 1 mg IM .X1 PRN PRN Reason: Hypoglycemia Heparin Sodium (Porcine) (Heparin Na) 5,000 unit SC Q12 [facility] Last Admin: 07/23/19 11:38 Dose: 5,000 unit Documented by: Dextrose (Dextrose 10%-Water) 250 mls @ 999 mls/hr IV .Q16M PRN; Protocol PRN Reason: HYPOGLYCEMIA Sodium Chloride () 250 mls @ 15 mls/hr IV .[id number] PRN PRN Reason: Saline Flush Last Infusion: 07/22/19 15:49 Dose: Infused Documented by: Ceftriaxone Sodium (Rocephin) 1 gm in 50 mls @ 100 mls/hr IV Q24 [facility] Last Infusion: 07/23/19 13:58 Dose: Infused Documented by: Ipratropium [place] (Atrovent) 0.5 mg INHALATION Q4H.RT [facility] Last Admin: 07/23/19 10:55 Dose: 0.5 mg Documented by: Ondansetron HCl (Zofran) 4 mg IV Q6H PRN PRN PRN Reason: NAUSEA/VOMITING Rosuvastatin Calcium (Crestor) 10 mg PO QHS [facility] Sodium Chloride () 10 - 40 ml IV UD PRN PRN Reason: SALINE FLUSH Last Admin: 07/22/19 22:11 Dose: 10 ml Documented by: Medical Necessity - Tobacco Use Smoking Status: Former smoker Tobacco Use: Cigarettes, Cigars Route of nutrition/ use of supplements: [] Nutritional Intake: [] IV Site: [] Barkley Catheter: [] - Assessment/Plan Antibiotics: [] Assessment/Plan: [] Active and Suspected Problems (Last Reviewed 07/14/19 @ 18:38 by Joan Charles) Severe sepsis (Acute) Community acquired pneumonia (Acute) Sputum cx with s.pneumo. Repeat sputum showed very rare fungus; doubt this fungus is a true pathogen given amount of growth and overall clinical improvement without antifungal therapy. Now off vent. Monitoring off of abx. Some low grade temps. Will follow
[2019-07-23] MEDS: Amiodarone 200 MG Tablet PO (15:00)
--- NOTE | 2019-07-23 15:27 | PN.RENAL_ITS ---
Patient Problems: Active and Suspected Problems (Last Reviewed 07/14/19 @ 18:38 by Joan Charles) Severe sepsis (Acute) Community acquired pneumonia (Acute) Subjective: extubated on NC No nausea No vomiting Breathing is stable - Physical Exam Vitals/I&O's: Vital Signs Temp Pulse Resp BP Pulse Ox 99.4 F H 90 18 155/70 H 94 07/23/19 12:00 07/23/19 15:00 07/23/19 15:00 07/23/19 15:00 07/23/19 15:00 Oxygen Flow Rate (L/min) 9 Oxygen Delivery Method Nasal Cannula Weight: 73.7 kg Body Mass Index (BMI) 25.4 Intake and Output for Last 24 Hours 07/21/19 07/22/19 07/23/19 23:59 23:59 23:59 Intake Total 2598.80 / 2718.80 974.35 / 974.35 154.73 / 154.73 Output Total 2235 / 2235 375 / 375 270 / 270 Balance 363.80 / 483.80 599.35 / 599.35 -115.27 / -115.27 General: Alert, Oriented x3 HEENT: Atraumatic Oral: Moist Mucosa Neck: Supple, No JVD Lungs: Clear to auscultation, Normal air movement, No rhonchi Cardiovascular: Regular rate, Regular Rhythm, Normal S1 Abdomen: Bowel Sounds Present, Soft, Non Tender, Non-Distended Extremities: No clubbing, No cyanosis, No edema Skin: No rashes Musculoskeletal: No Tenderness to Palpation of Joints or Extremities Lymphatic: No Cervical, Supraclavicular, or Inguinal Adenopathy Neurological: Cranial nerves II-XII grossly intact, Neuro grossly intact Microbiology Past 72 Hours 07/16/19 11:50 Blood Culture (Wb) - Anticubital Left Blood Culture - Final No growth in 5 days. 07/16/19 11:15 Blood Culture (Wb) - Arm Left Blood Culture - Final No growth in 5 days. 07/17/19 09:00 Sputum, Induced/Lukens Gram Stain - Final 07/17/19 09:00 Sputum, Induced/Lukens Respiratory Culture - Preliminary Possible Fungus 07/16/19 21:00 Sputum, Expectorated/Coughed Gram Stain - Final 07/16/19 21:00 Sputum, Expectorated/Coughed Respiratory Culture - Final Streptococcus pneumoniae 07/17/19 15:15 Urine Catheter - Barkley Urine Culture - Final Culture exhibits no growth. Laboratory Results 07/22/19 04:25: Diff Path Review Reviewed 07/22/19 17:51: POC Glucose 92 07/23/19 05:41: POC Glucose 95 07/23/19 06:25: WBC 11.3 H, RBC 3.21 L, Hgb 10.1 L, Hct 29.1 L, MCV 90.7, MCH 31.5, MCHC 34.7, RDW Std Deviation 48.9 H, RDW Coeff of Jeanne 14.7 H, Plt Count 163, MPV 9.8, Immature Gran % (Auto) 5.000 H, Neut % (Auto) 83.6 H, Lymph % (A uto) 6.6 L, [place] % (Auto) 3.8, Eos % (Auto) 0.7, Baso % (Auto) 0.3, Absolute Neuts (auto) 9.4 H, Absolute Lymphs (auto) 0.74 L, Nucleated RBC % 0 07/23/19 06:25: Sodium 138, Potassium 4.0, Chloride 100, Carbon Dioxide 24.0, Anion Gap 14, BUN 86 H, Creatinine 6.29 H, Estim Creat Clear Calc 9.05, Est GFR (MDRD) Af Amer 11 L, Est GFR (MDRD) Non-Af 9 L, BUN/Creatinine Ratio 13.7, Glucose 99, Calcium 7.9 L, Phosphorus 7.9 H, Magnesium 3.1 H 07/23/19 06:42: Specimen Type ART, Sample Site L Radial, pH 7.44, Bicarbonate Actual 23.7, POC Total CO2 25, Base Excess 0, O2 Saturation 94 L, O2 % 40, ABG pCO2 35.1, ABG pO2 66 L, Arturo Test POS, O2 Delivery Device Vent, Vent Mode CPAP PS, POC PEEP 5, POC Pressure Suppt 5, Blood Gas Notified Whom ICU MD, Blood Gas Notified Time 640 Current Medications Acetaminophen (Tylenol) 650 mg PO Q6H PRN PRN PRN Reason: PAIN 1-10 OR FEVER Amiodarone HCl (Cordarone) 200 mg PO DAILY [facility] Last Admin: 07/23/19 15:00 Dose: 200 mg Documented by: Chlorhexidine Gluconate () 1 each TOPICAL DAILY [facility] Last Admin: 07/23/19 11:38 Dose: 1 each Documented by: Glucagon () 1 mg IM .X1 PRN PRN Reason: Hypoglycemia Heparin Sodium (Porcine) (Heparin Na) 5,000 unit SC Q12 [facility] Last Admin: 07/23/19 11:38 Dose: 5,000 unit Documented by: Dextrose (Dextrose 10%-Water) 250 mls @ 999 mls/hr IV .Q16M PRN; Protocol PRN Reason: HYPOGLYCEMIA Sodium Chloride () 250 mls @ 15 mls/hr IV .[id number] PRN PRN Reason: Saline Flush Last Infusion: 07/22/19 15:49 Dose: Infused Documented by: Ceftriaxone Sodium (Rocephin) 1 gm in 50 mls @ 100 mls/hr IV Q24 [facility] Last Infusion: 07/23/19 13:58 Dose: Infused Documented by: Ipratropium [place] (Atrovent) 0.5 mg INHALATION Q4H.RT [facility] Last Admin: 07/23/19 10:55 Dose: 0.5 mg Documented by: Ondansetron HCl (Zofran) 4 mg IV Q6H PRN PRN PRN Reason: NAUSEA/VOMITING Rosuvastatin Calcium (Crestor) 10 mg PO QHS [facility] Sodium Chloride () 10 - 40 ml IV UD PRN PRN Reason: SALINE FLUSH Last Admin: 07/22/19 22:11 Dose: 10 ml Documented by: Medical Necessity - Tobacco Use Smoking Status: Former smoker Tobacco Use: Cigarettes, Cigars Assessment/Plan All Active Problems (Last Reviewed 07/14/19 @ 18:38 by Joan Charles) Severe sepsis (Acute) Community acquired pneumonia (Acute) 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) Atelectasis (Acute) 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) [employer] (current) use of anticoagulants (Acute) Atrial fibrillation (Acute) Non-rheumatic aortic stenosis (Resolved) Acute on chronic renal failure. CKD stage III at baseline. Creatinine is around 1.4. Acute renal failure is likely ATN in the setting of sepsis. Pt is HD dependent. no recovery of kidney function Will arrange for HD session today Pneumonia. Left multilobar pneumonia. Sputum is positive for strep pneumonia. On antibiotics as per primary Atrial fibrillation. On amiodarone drip. History of coronary artery disease status post bypass graft and aortic valve replacement about a year ago
--- NOTE | 2019-07-23 20:32 | DIALYSIS ---
HD X 3 HRS ON 3K BATH [id number] TOLERATED TREATMENT FAIRLY WELL. BP DROPPED LOW PT NOT SYMPTOMATIC AND CAME UP WITH NS BOLUS. NO MEDS GIVEN REPORT TO [employer] PT STABLE POST TREATMENT
[2019-07-23 21:40] LABS: Bedside Glucose 87 mg/dL (70-110)
--- NOTE | 2019-07-23 21:45 | NURSING ---
HD completed, per HD RN 1700ml fluid removed and pt janelle all well; pt assisted to sitting up in bed, dinner warmed and pt assisted w/eating.
[2019-07-23] MEDS: Rosuvastatin 20 MG Tablet 10 MG PO (23:18)
[2019-07-24] VITALS (23 sets, daily range): BP systolic 85–159; BP diastolic 50–78; PULSE 71–98; RESP 11–22; TEMP 36.6–37.1; O2SAT 91–98
[2019-07-24] MEDS: Ipratropium 0.5 MG/2.5 ML SOLUTION INHALATION ×5 (02:24→23:09)
--- NOTE | 2019-07-24 07:10 | PCM.PN.INT ---
Subjective: Patient did well overnight. No acute issues were reported. Patient states that he is thirsty, but denies any abdominal pain. Patient did tolerate hemodialysis yesterday was 1700 cc removed. Patient has remained in normal sinus rhythm and was recently decreased to 3 L nasal cannula oxygen. General: Alert, Oriented x3, Cooperative, No apparent distress, Well developed, Well nourished, - - No conversational dyspnea. HEENT: Atraumatic, PERRLA, EOMI, Normocephalic, - - No scleral icterus or injection noted Oral: Moist Mucosa, No Gingival or Mucosal Lesions/ Ulcerations Neck: Supple, No JVD, No Nodes, Trachea Midline Lungs: No rhonchi, No wheeze, No rales, Diminished, - - Symmetric expansion. No dullness to percussion. Cardiovascular: Regular rate, Regular Rhythm, Normal S1, Normal S2, No murmurs, No rub noted, No Gallop Abdomen: Bowel Sounds Present, Soft, Non Tender, Distended - Slightly Extremities: No clubbing, No cyanosis, Edema Skin: No rashes, No breakdown Musculoskeletal: No Tenderness to Palpation of Joints or Extremities Lymphatic: No Cervical, Supraclavicular, or Inguinal Adenopathy Neurological: Cranial nerves II-XII grossly intact, Neuro grossly intact, Motor Exam 5/5 strength throughout Psych/Mental Status: Appropriate, Flat Affect Vital Signs Temp Pulse Resp BP Pulse Ox 36.9 C 78 13 159/64 H 98 07/24/19 06:00 07/24/19 07:04 07/24/19 07:04 07/24/19 07:00 07/24/19 07:00 Oxygen Flow Rate (L/min) 3 Oxygen Delivery Method Nasal Cannula Weight: 72.2 kg Body Mass Index (BMI) 25.4 Intake and Output for Last 24 Hours 07/22/19 07/23/19 07/24/19 23:59 23:59 23:59 Intake Total 974.35 / 974.35 154.73 / 514.73 410 / 410 Output Total 375 / 375 2054 / 2084 55 / 55 Balance 599.35 / 599.35 -1900.27 / -1570.27 355 / 355 Labs (Last 48 Hours) 07/22/19 07/22/19 07/22/19 04:25 12:13 17:51 WBC RBC Hgb Hct MCV MCH MCHC RDW Std Deviation RDW Coeff of Jeanne Plt Count MPV Immature Gran % (Auto) Neut % (Auto) Lymph % (Auto) [place] % (Auto) Eos % (Auto) Baso % (Auto) Absolute Neuts (auto) 11.1 H Absolute Lymphs (auto) 0.73 L Total Counted 100 Neutrophils % (Manual) 90 H Band Neutrophils % 1 Lymphocytes % (Manual) 6 L Monocytes % (Manual) 2 Myelocytes % 1 H Nucleated RBC % Diff Path Review Reviewed Platelet Estimate SLT Plt Morphology Comment LARGE Polychromasia RARE Hypochromasia 1+ Anisocytosis 1+ Microcytosis 1+ Specimen Type Sample Site pH Bicarbonate Actual POC Total CO2 Base Excess O2 Saturation O2 % ABG pCO2 ABG pO2 Arturo Test O2 Delivery Device Vent Mode POC PEEP POC Pressure Suppt Blood Gas Notified Whom Blood Gas Notified Time Sodium Potassium Chloride Carbon Dioxide Anion Gap BUN Creatinine Estim Creat Clear Calc Est GFR (MDRD) Af Amer Est GFR (MDRD) Non-Af BUN/Creatinine Ratio Glucose Calcium Phosphorus Magnesium POC Glucose 90 92 07/23/19 07/23/19 07/23/19 05:41 06:25 06:25 WBC 11.3 H RBC 3.21 L Hgb 10.1 L Hct 29.1 L MCV 90.7 MCH 31.5 MCHC 34.7 RDW Std Deviation 48.9 H RDW Coeff of Jeanne 14.7 H Plt Count 163 MPV 9.8 Immature Gran % (Auto) 5.000 H Neut % (Auto) 83.6 H Lymph % (Auto) 6.6 L [place] % (Auto) 3.8 Eos % (Auto) 0.7 Baso % (Auto) 0.3 Absolute Neuts (auto) 9.4 H Absolute Lymphs (auto) 0.74 L Total Counted Neutrophils % (Manual) Band Neutrophils % Lymphocytes % (Manual) Monocytes % (Manual) Myelocytes % Nucleated RBC % 0 Diff Path Review Platelet Estimate Plt Morphology Comment Polychromasia Hypochromasia Anisocytosis Microcytosis Specimen Type Sample Site pH Bicarbonate Actual POC Total CO2 Base Excess O2 Saturation O2 % ABG pCO2 ABG pO2 Arturo Test O2 Delivery Device Vent Mode POC PEEP POC Pressure Suppt Blood Gas Notified Whom Blood Gas Notified Time Sodium 138 Potassium 4.0 Chloride 100 Carbon Dioxide 24.0 Anion Gap 14 BUN 86 H Creatinine 6.29 H Estim Creat Clear Calc 9.05 Est GFR (MDRD) Af Amer 11 L Est GFR (MDRD) Non-Af 9 L BUN/Creatinine Ratio 13.7 Glucose 99 Calcium 7.9 L Phosphorus 7.9 H Magnesium 3.1 H POC Glucose 95 07/23/19 07/23/19 06:42 21:36 WBC RBC Hgb Hct MCV MCH MCHC RDW Std Deviation RDW Coeff of Jeanne Plt Count MPV Immature Gran % (Auto) Neut % (Auto) Lymph % (Auto) [place] % (Auto) Eos % (Auto) Baso % (Auto) Absolute Neuts (auto) Absolute Lymphs (auto) Total Counted Neutrophils % (Manual) Band Neutrophils % Lymphocytes % (Manual) Monocytes % (Manual) Myelocytes % Nucleated RBC % Diff Path Review Platelet Estimate Plt Morphology Comment Polychromasia Hypochromasia Anisocytosis Microcytosis Specimen Type ART Sample Site L Radial pH 7.44 Bicarbonate Actual 23.7 POC Total CO2 25 Base Excess 0 O2 Saturation 94 L O2 % 40 ABG pCO2 35.1 ABG pO2 66 L Arturo Test POS O2 Delivery Device Vent Vent Mode CPAP PS POC PEEP 5 POC Pressure Suppt 5 Blood Gas Notified Whom ICU MD Blood Gas Notified Time 640 Sodium Potassium Chloride Carbon Dioxide Anion Gap BUN Creatinine Estim Creat Clear Calc Est GFR (MDRD) Af Amer Est GFR (MDRD) Non-Af BUN/Creatinine Ratio Glucose Calcium Phosphorus Magnesium POC Glucose 87 Medical Necessity - Tobacco Use Smoking Status: Former smoker Tobacco Use: Cigarettes, Cigars Assessment/Plan All Active Problems (Last Reviewed 07/14/19 @ 18:38 by Joan Charles) Severe sepsis (Acute) Community acquired pneumonia (Acute) 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) Atelectasis (Acute) 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) 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 Okay to transfer from the intensive care unit 2. Continue aggressive pulmonary toileting 3. Likely okay to discontinue antibiotics as he has completed a 7-day course 4. Continue medical management of atrial fibrillation per cardiology recommendations. 5. Continue hemodialysis per nephrology recommendations. 6. Conservative management for ileus 7. Continue GI prophylaxis. IMPRESSIONS: 1. Acute hypoxemic respiratory failure secondary to severe community-acquired pneumonia Patient has done well after extubation. Patient continues to mobilize secretions using noninvasive measures of Acapella and incentive spirometer. Stressed to the patient the importance of getting out of bed and increasing activity. Continue to wean oxygen as tolerated. Likely okay to discontinue antibiotics after today's dose as this will be 7 days of therapy. 2. Severe sepsis likely secondary to pneumococcal pneumonia Patient has been afebrile. Secretions continue to improve. Will discontinue antibiotics. Blood pressures are doing well at this time 3. Distributive shock Resolved. Patient likely with multifactorial shock initially with both underlying dysrhythmia with elevated ventricular rate and pneumococcal shock. 4. Acute kidney injury Possibly secondary to ischemic ATN in the setting of hemodynamic instability due to the patient's underlying infectious process, atrial fibrillation with rapid ventricular rate and sedation related hypotension. A CT abdomen/pelvis revealed no evidence of an acute intra-abdominal process. Nephrology is currently following. Patient responded well to volume removal with hemodialysis yesterday. Volume removal if able would be recommended from a critical care standpoint. 5. Paroxysmal atrial fibrillation with rapid ventricular rate/coronary artery disease status post bypass/aortic valve replacement Resolved. The patient converted from atrial fibrillation back to sinus rhythm with underlying medical management and treatment of his infection, as noted above. Cardiology is following. Continue rate/rhythm control strategy per recommendations. Code Visit Inpatient E&M: [id number] [facility] L3
[2019-07-24] MEDS: Heparin Injection (Vial) 5,000 UNIT/ML VIAL 5000 UNIT SC ×2 (08:28→21:33)
[2019-07-24] MEDS: Amiodarone 200 MG Tablet PO (08:28)
--- NOTE | 2019-07-24 10:29 | NURSING ---
report called to pcu for transfer to room 107, family present & aware
--- NOTE | 2019-07-24 13:06 | CASEMGMT ---
RN GUERO spoke with patient and his and they agree to patient going to [facility]. SW called [facility] and left a message with referral as well as faxed information. Await response. Ignacia MUÑIZ MSW
--- NOTE | 2019-07-24 13:30 | CASEMGMT ---
This RN CM to room to discuss discharge plan/dialysis with pt/ at this time. Per , I can't take him home when he is this weak. Pt/ state they would like dialysis set up at the [facility] as that is the closest to home and they state they would like [facility] at discharge, if pt is not going to get any stronger. Judith SW aware, voices understanding. Referral faxed to [facility] admissions at this time. Pt/ do state that they have a daughter that can drive pt to dialysis once pt is at home and stronger. SStaten RN GUERO
--- NOTE | 2019-07-24 13:56 | PN.CARD_ITS ---
Subjectve: Patient doing much better today, telemetry showed normal sinus rhythm, rare PVCs. Tolerating p.o. amiodarone well. Extubated yesterday morning, and slowly improving. Transferring to PCU today. Objective: Vital Signs Temp Pulse Resp BP Pulse Ox 97.9 F 94 14 125/50 H 94 07/24/19 10:39 07/24/19 10:52 07/24/19 10:39 07/24/19 10:39 07/24/19 12:28 Oxygen Flow Rate (L/min) 3 Oxygen Delivery Method Nasal Cannula Weight: 159 lb 2.78 oz Body Mass Index (BMI) 25.4 Intake and Output for Last 24 Hours 07/22/19 07/23/19 07/24/19 23:59 23:59 23:59 Intake Total 974.35 / 974.35 154.73 / 514.73 510 / 510 Output Total 375 / 375 2054 / 2084 155 / 155 Balance 599.35 / 599.35 -1900.27 / -1570.27 355 / 355 General: Awake, Alert, Oriented x 3 HEENT: PERRL, EOMI, Sclera Non Icteric Neck: Supple, Good ROM, No Lymph Node Enlargement Lungs: Diminished Right Base Cardiovascular: Regular Rhythm, Normal S1, Normal S2, No Murmurs, No Rubs, No Gallops Rhythm: EKG: ECHO: Stress Test: Cardiac Cath: PCI: CT Surgery: Holter monitor: EPS: PPM: CXR: Chest CT Scan: Medical Necessity - Tobacco Use Smoking Status: Former smoker Tobacco Use: Cigarettes, Cigars Assessment/Plan 1. Atrial fibrillation: The patient developed atrial fibrillation most likely as a result of his acute illness, with rapid ventricular response initially refractory to IV amiodarone. Patient is now fully converted to normal sinus rhythm. In addition the patient has a significant left-sided pneumonia, which is being treated with broad-spectrum antibiotics. Unfortunately his respiratory situation deteriorated, and patient has been intubated since 07/17/2019. Patient's mental status is much better today, and weaning trial is ongoing this morning. Patient is maintained sinus rhythm on p.o. amiodarone. Would recommend cont inuing p.o. amiodarone 200 mg p.o. daily. Patient's Eliquis was held out of concern for possible GI bleeding. We will restart this once he is extubated and assuming his hemoglobin remained stable. 2. Aortic valve replacement: Patient has a history of bioprosthetic aortic valve replacement and his recent echocardiogram was outlined above. Repeat surface echocardiogram shows normal functioning aortic valve replacement, without evidence of bacterial vegetation or abscess. Blood cultures thus far have been negative. His white count is actually within normal limits so it is doubtful the patient has endocarditis. 3. Coronary artery disease: Patient is a history of coronary disease status post three-vessel bypass surgery. The patient's atrial fibrillation demonstrated anterolateral ST segment depression which may be LVH with repolarization abnormality. Troponin series had a maximum of 1.0, and has had no sustained ventricular arrhythmias noted. Patient may require diagnostic coronary angiogram once his respiratory status has resolved. If the patient's unable to be extubated, he may require diagnostic coronary angiogram to determine whether he has any coronary disease that may be prohibiting extubation. 4. Hyperlipidemia: Continue statin based medications such as rosuvastatin. 5. Acute on chronic renal failure: Unfortunate the patient has had no appreciable urine output, and remains hemodialysis dependent. Appreciate renal input. Hemodialysis today. 6. Thank you very much for the opportunity to participate in the cardiac care of your patient. Patient may be transferred to PCU. Code Visit Inpatient E&M: [id number] Subs Hosp L2
--- NOTE | 2019-07-24 14:14 | CASEMGMT ---
Addendum entered by Ignacia Hammond 07/24/19 14:43: MYRA let patient and his family know that [facility] is not sure yet if they can accept him as they need to know the dialysis schedule to see if they can provide transportation. MYRA explained SW will have to follow up with [facility] and family on Saturday. Ignacia MAY Original Note: MYRA spoke with Vivi at [facility] who is covering for Beth. She asked when patient would be ready. YMRA told her not until Saturday or Saturday. SW asked if it is a problem if he is on dialysis. She said they would need to know his dialysis schedule to make sure they can arrange transport. We will not have his schedule until Saturday at the earliest. SW will have to follow up with [facility] on Saturday. Plan: SNF pending accepting facility and insurance approval. Ignacia MAY
--- NOTE | 2019-07-24 16:05 | PN_ITS ---
Patient Problems: Active and Suspected Problems (Last Reviewed 07/14/19 @ 18:38 by Joan Charles) Severe sepsis (Acute) Community acquired pneumonia (Acute) Subjective: Patient was seen and examined today in the ICU, he appeared medically stable, he was on nasal cannula oxygen and he was appropriate when questioned. Patient appears stable for transfer to PCU today. - Physical Exam Vitals/I&O's: Vital Signs Temp Pulse Resp BP Pulse Ox 97.9 F 82 16 125/50 H 95 07/24/19 10:39 07/24/19 14:59 07/24/19 14:54 07/24/19 10:39 07/24/19 14:54 Oxygen Flow Rate (L/min) 4 Oxygen Delivery Method Nasal Cannula Weight: 72.2 kg Body Mass Index (BMI) 25.4 Intake and Output for Last 24 Hours 07/22/19 07/23/19 07/24/19 23:59 23:59 23:59 Intake Total 974.35 / 974.35 154.73 / 514.73 510 / 510 Output Total 375 / 375 2054 / 2084 155 / 155 Balance 599.35 / 599.35 -1900.27 / -1570.27 355 / 355 General: Alert, Oriented x3, Cooperative, No apparent distress, Well developed HEENT: Atraumatic, PERRLA, EOMI, Normocephalic Oral: Moist Mucosa Neck: Supple, Trachea Midline, Thyroid Normal Size and Texture Lungs: Clear to auscultation, Normal air movement, No rhonchi, No wheeze, No rales Cardiovascular: Regular rate, Regular Rhythm, Normal S1, Normal S2, No murmurs Abdomen: Bowel Sounds Present, Soft, Non Tender, Non-Distended Extremities: No clubbing, No cyanosis, No edema, Capillary Refill Less than 3 Seconds Skin: No rashes, No breakdown Musculoskeletal: No Tenderness to Palpation of Joints or Extremities Neurological: Cranial nerves II-XII grossly intact, Neuro grossly intact, Sensory exam intact to light touch and pain Psych/Mental Status: Normal Affect, Appropriate, Alert and oriented to time, place, person, mood and affect Microbiology Past 72 Hours 07/16/19 11:50 Blood Culture (Wb) - Anticubital Left Blood Culture - Final No growth in 5 days. 07/16/19 11:15 Blood Culture (Wb) - Arm Left Blood Culture - Final No growth in 5 days. Laboratory Results 07/23/19 21:36: POC Glucose 87 Current Medications Acetaminophen (Tylenol) 650 mg PO Q6H PRN PRN PRN Reason: PAIN 1-10 OR FEVER Amiodarone HCl (Cordarone) 200 mg PO DAILY [facility] Last Admin: 07/24/19 08:28 Dose: 200 mg Documented by: Chlorhexidine Gluconate () 1 each TOPICAL DAILY [facility] Last Admin: 07/24/19 10:45 Dose: Not Given Documented by: Heparin Sodium (Porcine) (Heparin Na) 5,000 unit SC Q12 [facility] Last Admin: 07/24/19 08:28 Dose: 5,000 unit Documented by: Heparin Sodium (Porcine) () 2,600 units IV PRN PRN PRN Reason: after dialysis Sodium Chloride () 250 mls @ 15 mls/hr IV .[id number] PRN PRN Reason: Saline Flush Last Infusion: 07/22/19 15:49 Dose: Infused Documented by: Ipratropium [place] (Atrovent) 0.5 mg INHALATION Q4H.RT [facility] Last Admin: 07/24/19 14:54 Dose: 0.5 mg Documented by: Ondansetron HCl (Zofran) 4 mg IV Q6H PRN PRN PRN Reason: NAUSEA/VOMITING Rosuvastatin Calcium (Crestor) 10 mg PO QHS [facility] Last Admin: 07/23/19 23:18 Dose: 10 mg Documented by: Sodium Chloride () 10 - 40 ml IV UD PRN PRN Reason: SALINE FLUSH Last Admin: 07/22/19 22:11 Dose: 10 ml Documented by: Medical Necessity - Tobacco Use Smoking Status: Former smoker Tobacco Use: Cigarettes, Cigars Assessment/Plan All Active Problems (Last Reviewed 07/14/19 @ 18:38 by Joan Charles) Severe sepsis (Acute) Community acquired pneumonia (Acute) 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) Atelectasis (Acute) 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) 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) Atrial fibrillation (Acute) Non-rheumatic aortic stenosis (Resolved) #1 acute hypoxemic respiratory failure-secondary to community-acquired pneumonia (Streptococcus pneumoniae)-patient has now been extubated, he remains on nasal cannula oxygen, he appears stable for transfer to PCU at this time #2 severe sepsis secondary to community-acquired pneumonia-Streptococcus pneumoniae, antibiotics were completed #3 sputum positive for fungus-ID feels that this is likely not a pathogen, no treatment is recommended at this point #4 acute renal failure-patient will probably need ongoing dialysis for now #5 paroxysmal atrial fibrillation-now in sinus rhythm with PACs #6 community-acquired pneumonia secondary to Streptococcus pneumoniae, patient completed course of treatment #7 atherosclerotic heart disease #8 ileus-resolving at this time Code Visit Inpatient E&M: [id number] Subs Hosp L2
--- NOTE | 2019-07-24 16:55 | PCM.PN.REN ---
Patient Problems: Active and Suspected Problems (Last Reviewed 07/14/19 @ 18:38 by Joan Charles) Severe sepsis (Acute) Community acquired pneumonia (Acute) Subjective: Pt is doing well. No nausea No vomiting No SOB - Physical Exam Vitals/I&O's: Vital Signs Temp Pulse Resp BP Pulse Ox 97.9 F 91 16 148/54 H 95 07/24/19 16:23 07/24/19 16:23 07/24/19 16:23 07/24/19 16:23 07/24/19 16:23 Oxygen Flow Rate (L/min) 3 Oxygen Delivery Method Nasal Cannula Weight: 72.2 kg Body Mass Index (BMI) 25.4 Intake and Output for Last 24 Hours 07/22/19 07/23/19 07/24/19 23:59 23:59 23:59 Intake Total 974.35 / 974.35 154.73 / 514.73 510 / 510 Output Total 375 / 375 2055 / 2085 155 / 155 Balance 599.35 / 599.35 -1900.27 / -1570.27 355 / 355 General: Alert, Oriented x3 HEENT: Atraumatic Oral: Moist Mucosa Neck: Supple, No JVD Lungs: Clear to auscultation, Normal air movement, No rhonchi Cardiovascular: Regular rate, Regular Rhythm, Normal S1, Normal S2 Abdomen: Bowel Sounds Present, Soft, Non Tender, Non-Distended Extremities: No clubbing, No cyanosis, No edema Skin: No rashes Musculoskeletal: No Tenderness to Palpation of Joints or Extremities Lymphatic: No Cervical, Supraclavicular, or Inguinal Adenopathy Neurological: Cranial nerves II-XII grossly intact, Neuro grossly intact Psych/Mental Status: Appropriate Microbiology Past 72 Hours 07/16/19 11:50 Blood Culture (Wb) - Anticubital Left Blood Culture - Final No growth in 5 days. 07/16/19 11:15 Blood Culture (Wb) - Arm Left Blood Culture - Final No growth in 5 days. Laboratory Results 07/23/19 21:36: POC Glucose 87 Current Medications Acetaminophen (Tylenol) 650 mg PO Q6H PRN PRN PRN Reason: PAIN 1-10 OR FEVER Amiodarone HCl (Cordarone) 200 mg PO DAILY [facility] Last Admin: 07/24/19 08:28 Dose: 200 mg Documented by: Chlorhexidine Gluconate () 1 each TOPICAL DAILY [facility] Last Admin: 07/24/19 10:45 Dose: Not Given Documented by: Heparin Sodium (Porcine) (Heparin Na) 5,000 unit SC Q12 [facility] Last Admin: 07/24/19 08:28 Dose: 5,000 unit Documented by: Heparin Sodium (Porcine) () 2,600 units IV PRN PRN PRN Reason: after dialysis Sodium Chloride () 250 mls @ 15 mls/hr IV .[id number] PRN PRN Reason: Saline Flush Last Infusion: 07/22/19 15:49 Dose: Infused Documented by: Ipratropium [place] (Atrovent) 0.5 mg INHALATION Q4H.RT [facility] Last Admin: 07/24/19 14:54 Dose: 0.5 mg Documented by: Ondansetron HCl (Zofran) 4 mg IV Q6H PRN PRN PRN Reason: NAUSEA/VOMITING Rosuvastatin Calcium (Crestor) 10 mg PO QHS [facility] Last Admin: 07/23/19 23:18 Dose: 10 mg Documented by: Sodium Chloride () 10 - 40 ml IV UD PRN PRN Reason: SALINE FLUSH Last Admin: 07/22/19 22:11 Dose: 10 ml Documented by: Medical Necessity - Tobacco Use Smoking Status: Former smoker Tobacco Use: Cigarettes, Cigars Assessment/Plan All Active Problems (Last Reviewed 07/14/19 @ 18:38 by Joan Charles) Severe sepsis (Acute) Community acquired pneumonia (Acute) 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) Atelectasis (Acute) 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 CKD stage III at baseline. Creatinine is around 1.4. Acute renal failure is likely ATN in the setting of sepsis. Pt is HD dependent. no recovery of kidney function last HD session 07/23 No need for HD session today Next HD session tomorrow if no recovery of kidney function If no recovery of kidney function by next week, will consult IR for tunneled cath placement Pneumonia. Left multilobar pneumonia. Sputum is positive for strep pneumonia. On antibiotics as per primary Renal team will continue to follow Nish Garzon MD
[2019-07-24] MEDS: 0.9% Saline Lock 10 ML Syringe IV (21:36)
[2019-07-24] MEDS: Rosuvastatin 20 MG Tablet 10 MG PO (21:40)
[2019-07-25] VITALS (19 sets, daily range): BP systolic 114–164; BP diastolic 58–82; PULSE 77–108; RESP 16–28; TEMP 36.6–37.1; O2SAT 85–95
[2019-07-25] MEDS: Ipratropium 0.5 MG/2.5 ML SOLUTION INHALATION ×6 (02:38→23:41)
[2019-07-25 07:44] LABS: Anion Gap 11 (5-15); BUN 98 mg/dL (7-18); BUN/Creat Ratio 16.4 RATIO (10-20); Chloride 102 mmol/L (98-107); Creatinine, Serum 5.96 mg/dL (0.70-1.30); EST Glomerular Filtration Rate 10 mL/min (>60); Est Glom Filt Rate - Afr Amer 12 mL/min (>60); Estimated Creatinine Clearance 9.55 ml/min; Glucose 99 mg/dL (74-106); Potassium 3.7 mmol/L (3.5-5.1); Sodium Level 138 mmol/L (136-145)
--- NOTE | 2019-07-25 08:11 | CPS ---
pt placed back on 2lpm
--- NOTE | 2019-07-25 09:32 | PN_ITS ---
Subjective: Patient did okay overnight. Patient continues to report subjective improvement in dyspnea. Patient denies any chest pain, cally pain, nausea or vomiting. Patient states his cough has improved. Patient has been noted to have increased urine output over the last 24 hours, but is going to have hemodialysis today. General: Alert, Oriented x3, Cooperative, No apparent distress, - - No conversational dyspnea. HEENT: Atraumatic, PERRLA, EOMI, Normocephalic, - - No scleral icterus or injection noted Oral: Moist Mucosa, No Gingival or Mucosal Lesions/ Ulcerations Neck: Supple, No JVD, No Nodes, Trachea Midline, - - Hemodialysis line is clean, dry and intact Lungs: No rhonchi, No wheeze, No rales, Diminished, - - Symmetric expansion. Cardiovascular: Regular rate, Regular Rhythm, Normal S1, Normal S2, No murmurs, No rub noted, No Gallop Abdomen: Bowel Sounds Present, Soft, Non Tender, Non-Distended Extremities: No clubbing, No cyanosis, Edema - Improving Skin: No rashes, No breakdown Musculoskeletal: No Tenderness to Palpation of Joints or Extremities Lymphatic: No Cervical, Supraclavicular, or Inguinal Adenopathy Neurological: Cranial nerves II-XII grossly intact, Neuro grossly intact, Motor Exam 5/5 strength throughout Psych/Mental Status: Appropriate, Flat Affect Vital Signs Temp Pulse Resp BP Pulse Ox 36.7 C 83 17 153/80 H 93 07/25/19 07:57 07/25/19 07:57 07/25/19 07:57 07/25/19 07:57 07/25/19 07:57 Oxygen Flow Rate (L/min) 2 Oxygen Delivery Method Nasal Cannula Weight: 72.7 kg Body Mass Index (BMI) 25.4 Intake and Output for Last 24 Hours 07/23/19 07/24/19 07/25/19 23:59 23:59 23:59 Intake Total 154.73 / 514.73 630 / 690 300 / 300 Output Total 2054 / 5 205 / 255 200 / 200 Balance -1900.27 / -1570.27 425 / 435 100 / 100 Labs (Last 48 Hours) 07/22/19 07/23/19 07/25/19 04:25 21:36 07:08 Diff Path Review Reviewed Sodium 138 Potassium 3.7 Chloride 102 Carbon Dioxide 25.0 Anion Gap 11 BUN 98 H Creatinine 5.96 H Estim Creat Clear Calc 9.55 Est GFR (MDRD) Af Amer 12 L Est GFR (MDRD) Non-Af 10 L BUN/Creatinine Ratio 16.4 Glucose 99 Calcium 8.0 L POC Glucose 87 Medical Necessity - Tobacco Use Smoking Status: Former smoker Tobacco Use: Cigarettes, Cigars Assessment/Plan All Active Problems (Last Reviewed 07/14/19 @ 18:38 by Joan Charles) Severe sepsis (Acute) Community acquired pneumonia (Acute) 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) Atelectasis (Acute) 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) 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 Increase activity as tolerated 2. Continue aggressive pulmonary toileting 3. Monitor off antibiotics 4. Continue medical management of atrial fibrillation per cardiology recommendations. 5. Continue hemodialysis per nephrology recommendations. 6. Conservative management for ileus 7. Continue GI prophylaxis. IMPRESSIONS: 1. Acute hypoxemic respiratory failure secondary to severe community- acquired pneumonia Patient is done well after extubation. Continue to mobilize secretions as able with Acapella and incentive spirometer. Wean oxygen as tolerated. Patient has completed his antibiotic course for pneumococcal pneumonia. 2. Severe sepsis likely secondary to pneumococcal pneumonia Patient has been afebrile. Secretions continue to improve. Will discontinue antibiotics. Blood pressures are doing well at this time 3. Distributive shock Resolved. Patient likely with multifactorial shock initially with both underlying dysrhythmia with elevated ventricular rate and pneumococcal shock. 4. Acute kidney injury Possibly secondary to ischemic ATN in the setting of hemodynamic instability due to the patient's underlying infectious process, atrial fibrillation with rapid ventricular rate and sedation related hypotension. Patient is to have hemodialysis today, but urine output appears to be improving. 5. Paroxysmal atrial fibrillation with rapid ventricular rate/coronary artery disease status post bypass/aortic valve replacement Resolved. The patient converted from atrial fibrillation back to sinus rhythm with underlying medical management and treatment of his infection, as noted above. Cardiology is following. Continue rate/rhythm control strategy per recommendations. Code Visit Inpatient E&M: 77785 Subs Hosp L2
--- NOTE | 2019-07-25 10:27 | PCM.PN.CARD ---
Subjectve: Mr. Sanchez doing fairly well this morning, undergoing dialysis without complications. Telemetry showed normal sinus rhythm, no arrhythmias noted. No further atrial fibrillation noted. No chest pain. Objective: Vital Signs Temp Pulse Resp BP Pulse Ox 98.1 F 83 17 153/80 H 93 07/25/19 07:57 07/25/19 07:57 07/25/19 07:57 07/25/19 07:57 07/25/19 07:57 Oxygen Flow Rate (L/min) 2 Oxygen Delivery Method Nasal Cannula Weight: 160 lb 4.417 oz Body Mass Index (BMI) 25.4 Intake and Output for Last 24 Hours 07/23/19 07/24/19 07/25/19 23:59 23:59 23:59 Intake Total 154.73 / 514.73 630 / 690 300 / 300 Output Total 5 / 2085 205 / 255 200 / 200 Balance -1900.27 / -1570.27 425 / 435 100 / 100 General: Awake, Alert, Oriented x 3 HEENT: PERRL, EOMI, Sclera Non Icteric Neck: Supple, Good ROM, No Lymph Node Enlargement Lungs: Clear to auscultation Cardiovascular: Regular Rhythm, Normal S1, Normal S2, No Murmurs, No Rubs, No Gallops Murmur Murmur: Grade 2/6, Crescendo-Decrescendo Vascular: No Carotid Bruits, Normal Femoral Pulses, Normal Radial Pulses, Normal Dorsalis Pedal Pulse, Normal Posterior Tibial Pulses Abdomen: Bowel Sounds Present, Soft, Non Tender, No HSM, No Organomegaly Extremities: No Cyanosis, No Clubbing, No edema Neurological: No Focal Motor or Sensory Deficit 07/25/19 07:08: Sodium 138, Potassium 3.7, Chloride 102, Carbon Dioxide 25.0, Anion Gap 11, BUN 98 H, Creatinine 5.96 H, Est GFR (MDRD) Af Amer 12 L, Est GFR (MDRD) Non-Af 10 L, BUN/Creatinine Ratio 16.4, Glucose 99, Calcium 8.0 L Rhythm: EKG: ECHO: Stress Test: Cardiac Cath: PCI: CT Surgery: Holter monitor: EPS: PPM: CXR: Chest CT Scan: Medical Necessity - Tobacco Use Smoking Status: Former smoker Tobacco Use: Cigarettes, Cigars Assessment/Plan 1. Atrial fibrillation: The patient developed atrial fibrillation most likely as a result of his acute illness, with rapid ventricular response initially refractory to IV amiodarone. Patient is now fully converted to normal sinus rhythm. In addition the patient has a significant left-sided pneumonia, which is being treated with antibiotics. Patient was extubated on 07/23/2019, and has been doing fairly well ever since. Patient is maintained sinus rhythm on p.o. amiodarone. Would recommend continuing p.o. amiodarone 200 mg p.o. daily. Patient's Eliquis was held out of concern for possible GI bleeding. We will restart this once he is extubated and assuming his hemoglobin remained stable. 2. Aortic valve replacement: Patient has a history of bioprosthetic aortic valve replacement and his recent echocardiogram was outlined above. Repeat surface echocardiogram shows normal functioning aortic valve replacement, without evidence of bacterial vegetation or abscess. Blood cultures thus far have been negative. His white count is actually within normal limits so it is doubtful the patient has endocarditis. He has no outward signs of endocarditis. 3. Coronary artery disease: Patient is a history of coronary disease status post three-vessel bypass surgery. The patient's atrial fibrillation demonstrated anterolateral ST segment depression which may be LVH with repolarization abnormality. Troponin series had a maximum of 1.0, and has had no sustained ventricular arrhythmias noted. Patient may require diagnostic coronary angiogram once his respiratory status has resolved however I would hold on this given the patient's acute on chronic renal failure and subsequent hemodialysis requirements. 4. Hyperlipidemia: Continue statin based medications such as rosuvastatin. 5. Acute on chronic renal failure: Unfortunate the patient has had no appreciable urine output, and remains hemodialysis dependent. Appreciate renal input. Hemodialysis today. 6. Thank you very much for the opportunity to participate in the cardiac care of your patient. We will sign off. Please call with any questions. Code Visit Inpatient E&M: 93947 Subs Hosp L2
--- NOTE | 2019-07-25 12:33 | DIALYSIS ---
Hemodialysis x 3.5hrs today. UF -1500mL removed. Pt tolerated tx well. Report to [facility] Pt stable.
[2019-07-25] MEDS: Amiodarone 200 MG Tablet PO (14:21)
[2019-07-25] MEDS: Heparin Injection (Vial) 5,000 UNIT/ML VIAL 5000 UNIT SC ×2 (14:22→21:45)
--- NOTE | 2019-07-25 16:20 | PCM.PROGNOTE ---
Patient Problems: Active and Suspected Problems (Last Reviewed 07/14/19 @ 18:38 by Joan Charles) Severe sepsis (Acute) Community acquired pneumonia (Acute) Subjective: no cp/sob - Physical Exam Vitals/I&O's: Vital Signs Temp Pulse Resp BP Pulse Ox 97.8 F 107 H 22 H 137/60 H 94 07/25/19 13:57 07/25/19 15:32 07/25/19 15:32 07/25/19 13:57 07/25/19 13:57 Oxygen Flow Rate (L/min) 2 Oxygen Delivery Method Nasal Cannula Weight: 72.7 kg Body Mass Index (BMI) 25.4 Intake and Output for Last 24 Hours 07/23/19 07/24/19 07/25/19 23:59 23:59 23:59 Intake Total 154.73 / 514.73 630 / 690 540 / 540 Output Total 2054 / 2084 205 / 255 1700 / 1700 Balance -1900.27 / -1570.27 425 / 435 -1160 / -1160 General: Alert, Oriented x3, Cooperative HEENT: Atraumatic, PERRLA, EOMI, Normocephalic Neck: Supple, No JVD, Negative Carotid Bruits Lungs: Clear to auscultation, Normal air movement Cardiovascular: Regular rate, No murmurs Abdomen: Bowel Sounds Present, Soft, Non Tender Extremities: No edema, Capillary Refill Less than 3 Seconds Skin: No rashes, No breakdown Musculoskeletal: No Tenderness to Palpation of Joints or Extremities Neurological: Cranial nerves II-XII grossly intact Psych/Mental Status: Normal Affect, Appropriate Comment: [facility] Laboratory Results 07/25/19 07:08: Sodium 138, Potassium 3.7, Chloride 102, Carbon Dioxide 25.0, Anion Gap 11, BUN 98 H, Creatinine 5.96 H, Estim Creat Clear Calc 9.55, Est GFR (MDRD) Af Amer 12 L, Est GFR (MDRD) Non-Af 10 L, BUN/Creatinine Ratio 16.4, Glucose 99, Calcium 8.0 L Current Medications Acetaminophen (Tylenol) 650 mg PO Q6H PRN PRN PRN Reason: PAIN 1-10 OR FEVER Amiodarone HCl (Cordarone) 200 mg PO DAILY [facility] Last Admin: 07/25/19 14:21 Dose: 200 mg Documented by: Chlorhexidine Gluconate () 1 each TOPICAL DAILY [facility] Last Admin: 07/25/19 07:56 Dose: Not Given Documented by: Heparin Sodium (Porcine) (Heparin Na) 5,000 unit SC Q12 [facility] Last Admin: 07/25/19 14:22 Dose: 5,000 unit Documented by: Heparin Sodium (Porcine) () 2,600 units IV PRN PRN PRN Reason: after dialysis Sodium Chloride () 250 mls @ 15 mls/hr IV .[id number] PRN PRN Reason: Saline Flush Last Infusion: 07/22/19 15:49 Dose: Infused Documented by: Ipratropium [place] (Atrovent) 0.5 mg INHALATION Q4H.RT [facility] Last Admin: 07/25/19 15:32 Dose: 0.5 mg Documented by: Ondansetron HCl (Zofran) 4 mg IV Q6H PRN PRN PRN Reason: NAUSEA/VOMITING Rosuvastatin Calcium (Crestor) 10 mg PO QHS [facility] Last Admin: 07/24/19 21:40 Dose: 10 mg Documented by: Sodium Chloride () 10 - 40 ml IV UD PRN PRN Reason: SALINE FLUSH Last Admin: 07/24/19 21:36 Dose: 10 ml Documented by: Medical Necessity - Tobacco Use Smoking Status: Former smoker Tobacco Use: Cigarettes, Cigars Assessment/Plan All Active Problems (Last Reviewed 07/14/19 @ 18:38 by Joan Charles) Severe sepsis (Acute) Community acquired pneumonia (Acute) 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 His urine output seems to be improving at 600 mL today. We will check a BMP tomorrow and Saturday and will reevaluate the need for renal replacement therapy on Saturday. If no renal recovery soon will need placement of a tunneled dialysis catheter.
--- NOTE | 2019-07-25 16:27 | PCM.PROGNOTE ---
Patient Problems: Active and Suspected Problems (Last Reviewed 07/14/19 @ 18:38 by Joan Charles) Severe sepsis (Acute) Community acquired pneumonia (Acute) Subjective: Patient was seen and examined today, he is still requiring a low flow supplemental oxygen at 2 L. Patient had dialysis today, it is unknown at this time whether he will need continuing dialysis, if so he will need a tunneled dialysis catheter placed. Patient has no complaints of any shortness of breath or chest discomfort today, his was in the room during the time of my examination. - Physical Exam Vitals/I&O's: Vital Signs Temp Pulse Resp BP Pulse Ox 97.8 F 107 H 22 H 137/60 H 94 07/25/19 13:57 07/25/19 15:32 07/25/19 15:32 07/25/19 13:57 07/25/19 13:57 Oxygen Flow Rate (L/min) 2 Oxygen Delivery Method Nasal Cannula Weight: 72.7 kg Body Mass Index (BMI) 25.4 Intake and Output for Last 24 Hours 07/23/19 07/24/19 07/25/19 23:59 23:59 23:59 Intake Total 154.73 / 514.73 630 / 690 540 / 540 Output Total 2055 / 2085 205 / 255 1700 / 1700 Balance -1900.27 / -1570.27 425 / 435 -1160 / -1160 General: Alert, Oriented x3, Cooperative, No apparent distress HEENT: Atraumatic, PERRLA, EOMI, Normocephalic Oral: Moist Mucosa Neck: Supple, Trachea Midline, Thyroid Normal Size and Texture Lungs: Clear to auscultation, Normal air movement, No rhonchi, No wheeze Cardiovascular: Regular rate, Regular Rhythm, Normal S1, Normal S2, No murmurs Abdomen: Bowel Sounds Present, Soft, Non Tender, Non-Distended Extremities: No clubbing, No cyanosis, No edema, Capillary Refill Less than 3 Seconds Skin: No rashes, No breakdown Musculoskeletal: No Tenderness to Palpation of Joints or Extremities Neurological: Cranial nerves II-XII grossly intact, Neuro grossly intact, Sensory exam intact to light touch and pain Psych/Mental Status: Normal Affect, Appropriate, Alert and oriented to time, place, person, mood and affect Laboratory Results 07/25/19 07:08: Sodium 138, Potassium 3.7, Chloride 102, Carbon Dioxide 25.0, Anion Gap 11, BUN 98 H, Creatinine 5.96 H, Estim Creat Clear Calc 9.55, Est GFR (MDRD) Af Amer 12 L, Est GFR (MDRD) Non-Af 10 L, BUN/Creatinine Ratio 16.4, Glucose 99, Calcium 8.0 L Current Medications Acetaminophen (Tylenol) 650 mg PO Q6H PRN PRN PRN Reason: PAIN 1-10 OR FEVER Amiodarone HCl (Cordarone) 200 mg PO DAILY [facility] Last Admin: 07/25/19 14:21 Dose: 200 mg Documented by: Chlorhexidine Gluconate () 1 each TOPICAL DAILY [facility] Last Admin: 07/25/19 07:56 Dose: Not Given Documented by: Heparin Sodium (Porcine) (Heparin Na) 5,000 unit SC Q12 [facility] Last Admin: 07/25/19 14:22 Dose: 5,000 unit Documented by: Heparin Sodium (Porcine) () 2,600 units IV PRN PRN PRN Reason: after dialysis Sodium Chloride () 250 mls @ 15 mls/hr IV .[id number] PRN PRN Reason: Saline Flush Last Infusion: 07/22/19 15:49 Dose: Infused Documented by: Ipratropium [place] (Atrovent) 0.5 mg INHALATION Q4H.RT [facility] Last Admin: 07/25/19 15:32 Dose: 0.5 mg Documented by: Ondansetron HCl (Zofran) 4 mg IV Q6H PRN PRN PRN Reason: NAUSEA/VOMITING Rosuvastatin Calcium (Crestor) 10 mg PO QHS [facility] Last Admin: 07/24/19 21:40 Dose: 10 mg Documented by: Sodium Chloride () 10 - 40 ml IV UD PRN PRN Reason: SALINE FLUSH Last Admin: 07/24/19 21:36 Dose: 10 ml Documented by: Medical Necessity - Tobacco Use Smoking Status: Former smoker Tobacco Use: Cigarettes, Cigars Assessment/Plan All Active Problems (Last Reviewed 07/14/19 @ 18:38 by Joan Charles) Severe sepsis (Acute) Community acquired pneumonia (Acute) 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) Atelectasis (Acute) 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 According to discharge planning, he is planning on transfer to shelter facility when medically stable. #2 severe sepsis secondary to community-acquired pneumonia-Streptococcus pneumoniae, antibiotics were completed #3 sputum positive for fungus-ID feels that this is likely not a pathogen, no treatment is recommended at this point #4 acute renal failure-patient will probably need ongoing dialysis for now, patient had dialysis today #5 paroxysmal atrial fibrillation-now in sinus rhythm #6 community-acquired pneumonia secondary to Streptococcus pneumoniae, patient completed course of treatment #7 atherosclerotic heart disease #8 ileus-resolved Code Visit Inpatient E&M: [id number] Subs Hosp L2
[2019-07-25] MEDS: 0.9% Saline Lock 10 ML Syringe IV (16:42)
[2019-07-25] MEDS: Rosuvastatin 20 MG Tablet 10 MG PO (21:45)
[2019-07-26] VITALS (17 sets, daily range): BP systolic 89–145; BP diastolic 52–65; PULSE 78–98; RESP 16–22; TEMP 36.5–37.1; O2SAT 91–99
[2019-07-26] MEDS: 0.9% Saline Lock 10 ML Syringe IV ×2 (05:13→14:22)
[2019-07-26 05:27] LABS: Anion Gap 9 (5-15); BUN 65 mg/dL (7-18); BUN/Creat Ratio 13.6 RATIO (10-20); Calcium,Total 7.7 mg/dL (8.5-10.1); Chloride 105 mmol/L (98-107); Creatinine, Serum 4.79 mg/dL (0.70-1.30); EST Glomerular Filtration Rate 13 mL/min (>60); Est Glom Filt Rate - Afr Amer 15 mL/min (>60); Estimated Creatinine Clearance 11.88 ml/min; Glucose 96 mg/dL (74-106); Potassium 3.8 mmol/L (3.5-5.1); Sodium Level 140 mmol/L (136-145)
[2019-07-26] MEDS: Ipratropium 0.5 MG/2.5 ML SOLUTION INHALATION ×4 (07:14→19:37)
--- NOTE | 2019-07-26 08:22 | PCM.PN.PUL ---
Patient Problems: Active and Suspected Problems (Last Reviewed 07/14/19 @ 18:38 by Joan Charles) Severe sepsis (Acute) Community acquired pneumonia (Acute) Subjective: Patient did okay overnight. Patient does report that he was unable to get out of bed yesterday secondary to hemodialysis. Patient did require some increased FiO2 overnight, but states I have to cough whenever I take a deep breath. Patient denies any chest pain or change in sputum. - Physical Exam Vitals/I&O's: Vital Signs Temp Pulse Resp BP Pulse Ox 36.9 C 85 20 H 138/65 H 95 07/26/19 05:45 07/26/19 05:45 07/26/19 05:45 07/26/19 05:45 07/26/19 05:45 Oxygen Flow Rate (L/min) 3 Oxygen Delivery Method Nasal Cannula Weight: 73.2 kg Body Mass Index (BMI) 25.4 Intake and Output for Last 24 Hours 07/24/19 07/25/19 07/26/19 23:59 23:59 23:59 Intake Total 630 / 690 1050 / 1050 0 / 0 Output Total 205 / 255 0 / 2050 250 / 250 Balance 425 / 435 -1000 / -1000 -250 / -250 General: Alert, Oriented x3, Cooperative, - - Mild conversational dyspnea. HEENT: Atraumatic, PERRLA, EOMI, Normocephalic, - Oral: Moist Mucosa - Light scleral injection without icterus, No Gingival or Mucosal Lesions/ Ulcerations Neck: Supple, No JVD, No Nodes, Trachea Midline Lungs: No rhonchi, No wheeze, Diminished, Rales - Improved with coughing and deep inhalation Cardiovascular: Regular rate, Regular Rhythm, Normal S1, Normal S2, No murmurs, No rub noted, No Gallop Abdomen: Bowel Sounds Present, Soft, Non Tender, Distended - Slightly Extremities: No clubbing, No cyanosis, Edema Skin: No rashes, No breakdown, - - Hemodialysis line is clean, dry and intact Musculoskeletal: No Tenderness to Palpation of Joints or Extremities Lymphatic: No Cervical, Supraclavicular, or Inguinal Adenopathy Neurological: Cranial nerves II-XII grossly intact, Neuro grossly intact, Motor Exam 5/5 strength throughout Psych/Mental Status: Normal Affect, Appropriate Laboratory Results 07/26/19 05:05: Sodium 140, Potassium 3.8, Chloride 105, Carbon Dioxide 26.0, Anion Gap 9, BUN 65 H, Creatinine 4.79 H, Estim Creat Clear Calc 11.88, Est GFR (MDRD) Af Amer 15 L, Est GFR (MDRD) Non-Af 13 L, BUN/Creatinine Ratio 13.6, Glucose 96, Calcium 7.7 L Current Medications Acetaminophen (Tylenol) 650 mg PO Q6H PRN PRN PRN Reason: PAIN 1-10 OR FEVER Amiodarone HCl (Cordarone) 200 mg PO DAILY [facility] Last Admin: 07/25/19 14:21 Dose: 200 mg Documented by: Chlorhexidine Gluconate () 1 each TOPICAL DAILY [facility] Last Admin: 07/25/19 07:56 Dose: Not Given Documented by: Heparin Sodium (Porcine) (Heparin Na) 5,000 unit SC Q12 [facility] Last Admin: 07/25/19 21:45 Dose: 5,000 unit Documented by: Heparin Sodium (Porcine) () 2,600 units IV PRN PRN PRN Reason: after dialysis Sodium Chloride () 250 mls @ 15 mls/hr IV .[id number] PRN PRN Reason: Saline Flush Last Infusion: 07/22/19 15:49 Dose: Infused Documented by: Ipratropium [place] (Atrovent) 0.5 mg INHALATION Q4H.RT [facility] Last Admin: 07/26/19 07:14 Dose: 0.5 mg Documented by: Ondansetron HCl (Zofran) 4 mg IV Q6H PRN PRN PRN Reason: NAUSEA/VOMITING Rosuvastatin Calcium (Crestor) 10 mg PO QHS [facility] Last Admin: 07/25/19 21:45 Dose: 10 mg Documented by: Sodium Chloride () 10 - 40 ml IV UD PRN PRN Reason: SALINE FLUSH Last Admin: 07/26/19 05:13 Dose: 20 ml Documented by: Medical Necessity - Tobacco Use Smoking Status: Former smoker Tobacco Use: Cigarettes, Cigars Assessment/Plan All Active Problems (Last Reviewed 07/14/19 @ 18:38 by Joan Charles) Severe sepsis (Acute) Community acquired pneumonia (Acute) 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 Increase activity as tolerated 2. Continue aggressive pulmonary toileting 3. Monitor off antibiotics 4. Continue medical management/prophylaxis of atrial fibrillation per cardiology recommendations. 5. Continue hemodialysis per nephrology recommendations. 6. Conservative management for ileus 7. Continue GI prophylaxis. IMPRESSIONS: 1. Acute hypoxemic respiratory failure secondary to severe community-acquired pneumonia Patient's oxygen demands are slightly up today. Likely secondary to atelectasis as patient was unable to get out of bed yesterday and does not appear to be compliant with incentive spirometer. Stressed to the patient the importance of getting out of bed and using incentive spirometer to improve respiratory mechanics. Do not believe patient needs reinitiated on antibiotics. 2. Severe sepsis likely secondary to pneumococcal pneumonia Patient has been afebrile. Secretions continue to improve. Will discontinue antibiotics. Blood pressures are doing well at this time 3. Distributive shock Resolved. Patient likely with multifactorial shock initially with both underlying dysrhythmia with elevated ventricular rate and pneumococcal shock. 4. Acute kidney injury Possibly secondary to ischemic ATN in the setting of hemodynamic instability due to the patient's underlying infectious process, atrial fibrillation with rapid ventricular rate and sedation related hypotension. Patient did receive hemodialysis yesterday, but urine output continues to improve. May be able to go to a PRN basis. Nephrology is following. 5. Paroxysmal atrial fibrillation with rapid ventricular rate/coronary artery disease status post bypass/aortic valve replacement Resolved. The patient converted from atrial fibrillation back to sinus rhythm with underlying medical management and treatment of his infection, as noted above. Cardiology is following. Continue rate/rhythm control strategy per recommendations. Code Visit Inpatient E&M: [id number] Subs Hosp L2
[2019-07-26] MEDS: Heparin Injection (Vial) 5,000 UNIT/ML VIAL 5000 UNIT SC ×2 (10:07→22:03)
[2019-07-26] MEDS: Amiodarone 200 MG Tablet PO (11:19)
--- NOTE | 2019-07-26 15:33 | PN.RENAL_ITS ---
Patient Problems: Active and Suspected Problems (Last Reviewed 07/14/19 @ 18:38 by Joan Charles) Severe sepsis (Acute) Community acquired pneumonia (Acute) Subjective: no Shortness of breath nausea vomiting. - Physical Exam Vitals/I&O's: Vital Signs Temp Pulse Resp BP Pulse Ox 98.3 F 91 16 112/60 99 07/26/19 12:55 07/26/19 15:15 07/26/19 15:15 07/26/19 12:55 07/26/19 12:55 Oxygen Flow Rate (L/min) 2 Oxygen Delivery Method Nasal Cannula Weight: 73.2 kg Body Mass Index (BMI) 25.4 Intake and Output for Last 24 Hours 07/24/19 07/25/19 07/26/19 23:59 23:59 23:59 Intake Total 630 / 690 1050 / 1050 240 / 240 Output Total 205 / 255 2050 / 205 425 / 425 Balance 425 / 435 -1000 / -1000 -185 / -185 General: Alert - Right IJ dialysis catheter, Oriented x3, Cooperative Laboratory Results 07/26/19 05:05: Sodium 140, Potassium 3.8, Chloride 105, Carbon Dioxide 26.0, Anion Gap 9, BUN 65 H, Creatinine 4.79 H, Estim Creat Clear Calc 11.88, Est GFR (MDRD) Af Amer 15 L, Est GFR (MDRD) Non-Af 13 L, BUN/Creatinine Ratio 13.6, Glucose 96, Calcium 7.7 L Current Medications Acetaminophen (Tylenol) 650 mg PO Q6H PRN PRN PRN Reason: PAIN 1-10 OR FEVER Amiodarone HCl (Cordarone) 200 mg PO DAILY [facility] Last Admin: 07/26/19 11:19 Dose: 200 mg Documented by: Heparin Sodium (Porcine) (Heparin Na) 5,000 unit SC Q12 [facility] Last Admin: 07/26/19 10:07 Dose: 5,000 unit Documented by: Heparin Sodium (Porcine) () 2,600 units IV PRN PRN PRN Reason: after dialysis Sodium Chloride () 250 mls @ 15 mls/hr IV .[id number] PRN PRN Reason: Saline Flush Last Infusion: 07/22/19 15:49 Dose: Infused Documented by: Ipratropium [place] (Atrovent) 0.5 mg INHALATION Q4H.RT [facility] Last Admin: 07/26/19 15:15 Dose: 0.5 mg Documented by: Ondansetron HCl (Zofran) 4 mg IV Q6H PRN PRN PRN Reason: NAUSEA/VOMITING Rosuvastatin Calcium (Crestor) 10 mg PO QHS [facility] Last Admin: 07/25/19 21:45 Dose: 10 mg Documented by: Sodium Chloride () 10 - 40 ml IV UD PRN PRN Reason: SALINE FLUSH Last Admin: 07/26/19 14:22 Dose: 20 ml Documented by: Medical Necessity - Tobacco Use Smoking Status: Former smoker Tobacco Use: Cigarettes, Cigars Assessment/Plan All Active Problems (Last Reviewed 07/14/19 @ 18:38 by Joan Charles) Severe sepsis (Acute) Community acquired pneumonia (Acute) 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 d/w patient family and
--- NOTE | 2019-07-26 16:18 | PCM.PROGNOTE ---
Patient Problems: Active and Suspected Problems (Last Reviewed 07/14/19 @ 18:38 by Joan Charles) Severe sepsis (Acute) Community acquired pneumonia (Acute) Subjective: Patient was seen and examined today, he remains on nasal cannula oxygen at 2 L/min, I spoke briefly with nephrology about his care, his creatinine is still elevated, it is unknown whether the patient will require a tunneled dialysis catheter, nephrology will reevaluate the patient tomorrow. Patient is set up to go to a intermediate facility when he is medically stable, the question concerning a tunneled dialysis catheter will have to be answered before he is discharged to the intermediate facility. - Physical Exam Vitals/I&O's: Vital Signs Temp Pulse Resp BP Pulse Ox 98.3 F 91 16 112/60 99 07/26/19 12:55 07/26/19 15:15 07/26/19 15:15 07/26/19 12:55 07/26/19 12:55 Oxygen Flow Rate (L/min) 2 Oxygen Delivery Method Nasal Cannula Weight: 73.2 kg Body Mass Index (BMI) 25.4 Intake and Output for Last 24 Hours 07/24/19 07/25/19 07/26/19 23:59 23:59 23:59 Intake Total 630 / 690 1050 / 1050 240 / 240 Output Total 205 / 255 2049 / 2049 425 / 425 Balance 425 / 435 -1000 / -1000 -185 / -185 General: Alert, Oriented x3, Cooperative, No apparent distress, Well developed, Well nourished HEENT: Atraumatic, PERRLA, EOMI, Normocephalic Oral: Moist Mucosa Neck: Supple, Trachea Midline, Thyroid Normal Size and Texture Lungs: Clear to auscultation, Normal air movement, No rhonchi, No wheeze Cardiovascular: Regular rate, Regular Rhythm, Normal S1, Normal S2, No murmurs, PMI Normal Abdomen: Bowel Sounds Present, Soft, Non Tender, Non-Distended Extremities: No clubbing, No cyanosis, No edema, Capillary Refill Less than 3 Seconds Skin: No rashes, No breakdown Musculoskeletal: No Tenderness to Palpation of Joints or Extremities Neurological: Cranial nerves II-XII grossly intact, Neuro grossly intact, Sensory exam intact to light touch and pain, Coordination normal Psych/Mental Status: Normal Affect, Appropriate, Alert and oriented to time, place, person, mood and affect Laboratory Results 07/26/19 05:05: Sodium 140, Potassium 3.8, Chloride 105, Carbon Dioxide 26.0, Anion Gap 9, BUN 65 H, Creatinine 4.79 H, Estim Creat Clear Calc 11.88, Est GFR (MDRD) Af Amer 15 L, Est GFR (MDRD) Non-Af 13 L, BUN/Creatinine Ratio 13.6, Glucose 96, Calcium 7.7 L Current Medications Acetaminophen (Tylenol) 650 mg PO Q6H PRN PRN PRN Reason: PAIN 1-10 OR FEVER Amiodarone HCl (Cordarone) 200 mg PO DAILY [facility] Last Admin: 07/26/19 11:19 Dose: 200 mg Documented by: Heparin Sodium (Porcine) (Heparin Na) 5,000 unit SC Q12 [facility] Last Admin: 07/26/19 10:07 Dose: 5,000 unit Documented by: Heparin Sodium (Porcine) () 2,600 units IV PRN PRN PRN Reason: after dialysis Sodium Chloride () 250 mls @ 15 mls/hr IV .[id number] PRN PRN Reason: Saline Flush Last Infusion: 07/22/19 15:49 Dose: Infused Documented by: Ipratropium [place] (Atrovent) 0.5 mg INHALATION Q4H.RT [facility] Last Admin: 07/26/19 15:15 Dose: 0.5 mg Documented by: Ondansetron HCl (Zofran) 4 mg IV Q6H PRN PRN PRN Reason: NAUSEA/VOMITING Rosuvastatin Calcium (Crestor) 10 mg PO QHS [facility] Last Admin: 07/25/19 21:45 Dose: 10 mg Documented by: Sodium Chloride () 10 - 40 ml IV UD PRN PRN Reason: SALINE FLUSH Last Admin: 07/26/19 14:22 Dose: 20 ml Documented by: Medical Necessity - Tobacco Use Smoking Status: Former smoker Tobacco Use: Cigarettes, Cigars Assessment/Plan All Active Problems (Last Reviewed 07/14/19 @ 18:38 by Joan Charles) Severe sepsis (Acute) Community acquired pneumonia (Acute) 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 Again with the patient is medically stable he will be transferred to a intermediate facility for short-term rehab, he may require a tunneled dialysis catheter to be inserted however if he is going to be kept on dialysis. Nephrology will reevaluate the patient tomorrow #2 severe sepsis secondary to community-acquired pneumonia-Streptococcus pneumoniae, antibiotics were completed #3 sputum positive for fungus-ID feels that this is likely not a pathogen, no treatment is recommended at this point #4 acute renal failure-nephrology is following the patient's care #5 paroxysmal atrial fibrillation-now in sinus rhythm #6 community-acquired pneumonia secondary to Streptococcus pneumoniae, patient completed course of treatment #7 atherosclerotic heart disease #8 ileus-resolved Code Visit Inpatient E&M: 79299 Subs Hosp L2
[2019-07-26] MEDS: Rosuvastatin 20 MG Tablet 10 MG PO (22:03)
[2019-07-27] VITALS (17 sets, daily range): BP systolic 109–168; BP diastolic 59–71; PULSE 75–90; RESP 16–20; TEMP 36.2–37.1; O2SAT 92–97
[2019-07-27] MEDS: Ipratropium 0.5 MG/2.5 ML SOLUTION INHALATION ×6 (00:06→23:30)
[2019-07-27] MEDS: 0.9% Saline Lock 10 ML Syringe IV (04:49)
[2019-07-27 05:15] LABS: Anion Gap 9 (5-15); BUN 85 mg/dL (7-18); BUN/Creat Ratio 14.6 RATIO (10-20); Calcium,Total 7.6 mg/dL (8.5-10.1); Chloride 106 mmol/L (98-107); Creatinine, Serum 5.84 mg/dL (0.70-1.30); EST Glomerular Filtration Rate 10 mL/min (>60); Est Glom Filt Rate - Afr Amer 12 mL/min (>60); Estimated Creatinine Clearance 9.75 ml/min; Glucose 95 mg/dL (74-106); Potassium 4.2 mmol/L (3.5-5.1); Sodium Level 142 mmol/L (136-145)
--- NOTE | 2019-07-27 08:27 | PCM.PN.PUL ---
Patient Problems: Active and Suspected Problems (Last Reviewed 07/14/19 @ 18:38 by Joan Charles) Severe sepsis (Acute) Community acquired pneumonia (Acute) Subjective: The patient was seen and examined at the bedside this morning. Events from the last 24 hours have been reviewed. The patient is currently afebrile, hemodynamically stable and maintaining appropriate oxygen saturations on 2 L/min via nasal cannula. Objective: The patient's most recent lab work, culture data and imaging studies have all been personally reviewed. Surface echocardiogram revealed moderate concentric LVH with an ejection fraction of 65%. Right ventricular systolic pressure was estimated to be 40 mmHg. Strep and urine Legionella antigens were negative. Sputum culture was positive for Streptococcus pneumoniae. In addition, there was note of possible very rare fungus present as well too. Gastric occult blood was noted to be positive. - Physical Exam Vitals/I&O's: Vital Signs Temp Pulse Resp BP Pulse Ox 98.4 F 80 18 155/66 H 94 07/27/19 04:10 07/27/19 07:08 07/27/19 04:10 07/27/19 04:10 07/27/19 04:10 Oxygen Flow Rate (L/min) 2 Oxygen Delivery Method Nasal Cannula Weight: 156 lb 11.979 oz Body Mass Index (BMI) 25.4 Intake and Output for Last 24 Hours 07/25/19 07/26/19 07/27/19 23:59 23:59 23:59 Intake Total 1050 / 1050 720 / 720 Output Total 0 / 2049 825 / 825 250 / 250 Balance -1000 / -1000 -105 / -105 -250 / -250 General: Alert, Cooperative, No apparent distress HEENT: Atraumatic, Normocephalic Oral: No Gingival or Mucosal Lesions/ Ulcerations Neck: Supple, No Nodes, Trachea Midline Lungs: No rhonchi, No wheeze, No rales, Diminished Cardiovascular: Regular rate, Regular Rhythm, Normal S1, Normal S2, No murmurs Abdomen: Bowel Sounds Present, Soft, Non Tender Extremities: No clubbing, No cyanosis, Edema Skin: No breakdown Musculoskeletal: No Tenderness to Palpation of Joints or Extremities Lymphatic: No Cervical, Supraclavicular, or Inguinal Adenopathy Neurological: Neuro grossly intact Psych/Mental Status: Normal Affect, Appropriate Labs (Last 48 Hours) 07/26/19 07/27/19 05:05 04:45 Sodium 140 142 Potassium 3.8 4.2 Chloride 105 106 Carbon Dioxide 26.0 27.0 Anion Gap 9 9 BUN 65 H 85 H Creatinine 4.79 H 5.84 H Estim Creat Clear Calc 11.88 9.75 Est GFR (MDRD) Af Amer 15 L 12 L Est GFR (MDRD) Non-Af 13 L 10 L BUN/Creatinine Ratio 13.6 14.6 Glucose 96 95 Calcium 7.7 L 7.6 L Clinical Impression(s) from Imaging Studies Chest X-Ray 07/17/19 06:43 IMPRESSION: Progressive left upper lobe infiltrate. Electronically Signed: Behzad Barbara, at 8:27 EST , Service support , Chest X-Ray 07/17/19 08:33 IMPRESSION: The tip of the endotracheal tube is at 2.1 cm proximal to the donaldo. The tip of the orogastric tube is in the distal stomach. Stable opacification in the left hemithorax as well as increased markings at the right lung base. Electronically Signed: Behzad Jimenez, at 10:02 EST , Service support , Chest X-Ray 07/17/19 12:34 IMPRESSION: A right-sided PICC line catheter has been placed. The tip is at the junction of the superior vena cava and right atrium. The tip of the endotracheal tube should be withdrawn approximately 2 cm. Stable appearance of both lungs. Electronically Signed: Behzad Jimenez, at 13:16 EST , Service support , KUB X-Ray 07/18/19 08:24 IMPRESSION: 1. Mildly reduced patchy airspace disease of the left lung. Small layering right effusion. 2. NG tube tip overlying the distal stomach. Otherwise no evidence of definitive bowel dilatation or air-fluid levels. Electronically Signed: Nader Rodney DO at 9:30 EST , Service support , Abdomen/Pelvis CT 07/19/19 13:21 IMPRESSION: Bibasilar consolidations/atelectasis and pleural effusions. Cholelithiasis. Left adrenal nodule. Right renal cyst. Malrotation is suspected of the GI tract. No bowel obstruction. Fatty density at the inguinal canals. Electronically Signed: Pablo Hooper DO at 17:49 EST Tel [phone], Service support , Chest X-Ray 07/19/19 14:10 IMPRESSION: Worsening left upper lobe infiltrate. Bibasilar infiltrates. Electronically Signed: Pablo Hooper DO at 17:59 EST Tel [phone], Service support , Chest X-Ray 07/20/19 08:09 IMPRESSION: 1. Endotracheal tube, nasogastric tube, right internal jugular temporary dialysis catheter, and right upper extremity PICC all of which are unchanged. 2. Improved left upper lobe pneumonia. 3. Poor inspiration with some bibasilar atelectasis. Electronically Signed: Moe Elam MD at 10:10 EST Tel , Service support , KUB X-Ray 07/21/19 20:05 IMPRESSION: Orogastric tube terminating within the expected region of the proximal gastric fundus. Left pleural effusion. Distended loops of small bowel, may be secondary to an underlying ileus. Electronically Signed: Carol Grier MD at 20:24 EST Tel , Service support , Current Medications Acetaminophen (Tylenol) 650 mg PO Q6H PRN PRN PRN Reason: PAIN 1-10 OR FEVER Amiodarone HCl (Cordarone) 200 mg PO DAILY [facility] Last Admin: 07/26/19 11:19 Dose: 200 mg Documented by: Heparin Sodium (Porcine) (Heparin Na) 5,000 unit SC Q12 [facility] Last Admin: 07/26/19 22:03 Dose: 5,000 unit Documented by: Heparin Sodium (Porcine) () 2,600 units IV PRN PRN PRN Reason: after dialysis Sodium Chloride () 250 mls @ 15 mls/hr IV .[id number] PRN PRN Reason: Saline Flush Last Infusion: 07/22/19 15:49 Dose: Infused Documented by: Ipratropium [place] (Atrovent) 0.5 mg INHALATION Q4H.RT [facility] Last Admin: 07/27/19 07:26 Dose: 0.5 mg Documented by: Ondansetron HCl (Zofran) 4 mg IV Q6H PRN PRN PRN Reason: NAUSEA/VOMITING Rosuvastatin Calcium (Crestor) 10 mg PO QHS [facility] Last Admin: 07/26/19 22:03 Dose: 10 mg Documented by: Sodium Chloride () 10 - 40 ml IV UD PRN PRN Reason: SALINE FLUSH Last Admin: 07/27/19 04:49 Dose: 20 ml Documented by: Medical Necessity - Tobacco Use Smoking Status: Former smoker Tobacco Use: Cigarettes, Cigars Assessment/Plan All Active Problems (Last Reviewed 07/14/19 @ 18:38 by Joan Charles) Severe sepsis (Acute) Community acquired pneumonia (Acute) 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 Continue to wean supplemental oxygen to maintain saturations at or above 90%. 2. Perform walking oximetry study prior to consideration for discharge from the hospital. 3. Encourage incentive spirometer use and mobilize patient as tolerated. 4. Continue rate/rhythm control strategy per cardiology recommendations. 5. Continue hemodialysis support per nephrology recommendations. 6. Given the patient's lack of further ICU needs, will sign off. Please call with any additional questions. IMPRESSIONS: 1. Acute hypoxemic respiratory failure secondary to severe community-acquired pneumonia Significantly improved following invasive mechanical ventilatory support and antimicrobial coverage for the patient's underlying pneumococcal pneumonia. Continue to wean supplemental oxygen as tolerated. Encourage incentive spirometer use and mobilize patient as tolerated. Perform walking oximetry study prior to consideration for discharge home. The patient may have a residual oxygen requirement upon discharge, given the extent of his underlying pulmonary infectious process. 2. Severe sepsis likely secondary to pneumococcal pneumonia Improved. The patient has completed a treatment course of antimicrobials. He is hemodynamically stable. 3. Acute kidney injury Possibly secondary to ischemic ATN in the setting of hemodynamic instability due to the patient's underlying infectious process, atrial fibrillation with rapid ventricular rate and sedation related hypotension. A CT abdomen/pelvis revealed no evidence of an acute intra-abdominal process. The patient did require hemodialysis initiation on July 19. Nephrology is currently following. Will defer ongoing hemodialysis need to nephrology accordingly. 4. Paroxysmal atrial fibrillation with rapid ventricular rate/coronary artery disease status post bypass/aortic valve replacement Resolved. The patient converted from atrial fibrillation back to sinus rhythm with underlying medical management and treatment of his infection, as noted above. Cardiology is following. Continue rate/rhythm control strategy per recommendations. This note was generated with [employer] dictation software. It may contain incorrect words, spelling, and punctuation that were not noted in checking the note before signing. Code Visit Inpatient E&M: 59624 Subs Hosp L2
--- NOTE | 2019-07-27 08:43 | PN_ITS ---
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 Patient midsternal dialysis catheter. Patient states sometimes difficulty in chewing food secondary to dry mouth. He denies dysphagia or odynophagia. Vitals/I&O's: Vital Signs Temp Pulse Resp BP Pulse Ox 98.4 F 75 16 155/66 H 93 07/27/19 04:10 07/27/19 07:26 07/27/19 07:26 07/27/19 04:10 07/27/19 07:26 Oxygen Flow Rate (L/min) 2 Oxygen Delivery Method Nasal Cannula Weight: 156 lb 11.979 oz Body Mass Index (BMI) 25.4 Intake and Output for Last 24 Hours 07/25/19 07/26/19 07/27/19 23:59 23:59 23:59 Intake Total 1050 / 1050 720 / 720 Output Total 2049 / 2049 825 / 825 250 / 250 Balance -1000 / -1000 -105 / -105 -250 / -250 General: Alert, Oriented x3, Cooperative HEENT: Atraumatic, PERRLA, EOMI, Normocephalic Oral: - - Thick, viscid white crust and secretions over posterior part of tongue and palate. Neck: Supple, No JVD, Negative Carotid Bruits Lungs: Rhonchi, - - Air entry diminished in bilateral lungs. Dyspnea on mild exertion. Cardiovascular: Regular rate, Regular Rhythm, Normal S1, Normal S2, No murmurs Abdomen: Bowel Sounds Present, Soft, Non Tender, Distended - Mild distention present. Patient moved bowel in the last 2 days. Extremities: Capillary Refill Less than 3 Seconds, Edema Skin: No rashes, No breakdown Musculoskeletal: No Tenderness to Palpation of Joints or Extremities, Arthritic Changes Neurological: Cranial nerves II-XII grossly intact Psych/Mental Status: Normal Affect, Appropriate Laboratory Results 07/27/19 04:45: Sodium 142, Potassium 4.2, Chloride 106, Carbon Dioxide 27.0, Anion Gap 9, BUN 85 H, Creatinine 5.84 H, Estim Creat Clear Calc 9.75, Est GFR (MDRD) Af Amer 12 L, Est GFR (MDRD) Non-Af 10 L, BUN/Creatinine Ratio 14.6, Glucose 95, Calcium 7.6 L Current Medications Acetaminophen (Tylenol) 650 mg PO Q6H PRN PRN PRN Reason: PAIN 1-10 OR FEVER Amiodarone HCl (Cordarone) 200 mg PO DAILY [facility] Last Admin: 07/26/19 11:19 Dose: 200 mg Documented by: Heparin Sodium (Porcine) (Heparin Na) 5,000 unit SC Q12 [facility] Last Admin: 07/26/19 22:03 Dose: 5,000 unit Documented by: Heparin Sodium (Porcine) () 2,600 units IV PRN PRN PRN Reason: after dialysis Sodium Chloride () 250 mls @ 15 mls/hr IV .[id number] PRN PRN Reason: Saline Flush Last Infusion: 07/22/19 15:49 Dose: Infused Documented by: Ipratropium [place] (Atrovent) 0.5 mg INHALATION Q4H.RT [facility] Last Admin: 07/27/19 07:26 Dose: 0.5 mg Documented by: Ondansetron HCl (Zofran) 4 mg IV Q6H PRN PRN PRN Reason: NAUSEA/VOMITING Rosuvastatin [place] (Crestor) 10 mg PO QHS [facility] Last Admin: 07/26/19 22:03 Dose: 10 mg Documented by: Sodium Chloride () 10 - 40 ml IV UD PRN PRN Reason: SALINE FLUSH Last Admin: 07/27/19 04:49 Dose: 20 ml Documented by: STROKE Vital Signs/Narrative: Vital Signs Pulse Resp Pulse Ox 07/27/19 07:26 75 16 93 07/27/19 07:08 80 Medical Necessity - Tobacco Use Smoking Status: Former smoker Tobacco Use: Cigarettes, Cigars Assessment/Plan All Active Problems (Last Reviewed 07/14/19 @ 18:38 by Joan Charles) Severe sepsis (Acute) Community acquired pneumonia (Acute) 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) Atelectasis (Acute) 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) nursing home (current) use of anticoagulants (Acute) Atrial fibrillation (Acute) Non-rheumatic aortic stenosis (Resolved) The patient is a 79 year old M with history of coronary artery disease status post CABG three-vessel, aortic stenosis status post AVR in April 2018, paroxysmal A. fib was sent to urgent care from Dr. Lyles office after he was found short of breath and hypoxic. From urgent care patient was sent to ER. Patient was not on oxygen at home In ED, patient was found hypoxic, 88% on room air, tachypneic respiratory 24, 93% on 3 L oxygen. During conversation and exam, he became more hypoxic and tachypneic, respiratory 35/min and 92% oxygen requirement 5 L. Chest x-ray showed large area of consolidation in the left upper lobe and lingular lobe same superior segment of left lower lobe. While in ER, patient went into A. fib with RVR, on monitor heart rate 155/min. EKG was done shows A. fib with RVR at 60/min 1. Septic shock (tachycardia, tachypnea, leukocytosis, bandemia and lactic acidosis, 3.2, coagulopathy INR 1.8 total bili 1.6,) and acute hypoxic respiratory failure, present on admission secondary to left upper lobe/lingular and superior segment of left lower lobe, multilobar community-acquired strep pneumoniae pneumonia: Patient was admitted in ICU. Urinary antigens were negative. Sputum culture was positive for Streptococcus pneumoniae. Patient completed antibiotic. 2. acute hypoxemic respiratory failure-secondary to community-acquired pneumonia (Streptococcus pneumoniae)-patient is currently on low-flow oxygen via nasal cannula. 3. upper GI bleed with mild acute anemia secondary to blood loss/hemodilution and small bowel ileus/intestinal malrotation: Patient had coffee grounds/bloody aspirate from OG tube. Patient was seen by surgeon Dr. Corrales. Patient also had CT abdomen pelvis and reported gastric ileus with contrast in the stomach and a scant amount of contrast in proximal duodenum and small bowel. Patient was seen by surgeon and signed off as his thought does not have mechanical intestinal obstruction but ileus. Ileus is resolved. 3. A. fib with RVR with history of tachybradycardia syndrome: Patient has history of paroxysmal A. fib and had postoperative A. fib after CABG. On amiodarone. Acute kidney injury most sepsis/ATN: Patient baseline creatinine is unknown, last one 1.2 in August 2013. Admitted with BUN/creatinine 27/1.83. Patient is currently on hemodialysis. Dr. Cheung been consulted by repeat photocomposing machine operator for tunneled dialysis catheter. 4. Coronary artery disease status post CABG x3, aortic stenosis status post aortic valve replacement in April 2018: Recent echo on 07/03/2019 reported as EF 65% with stage I diastolic dysfunction. Moderate concentric LVH. Mildly dilated RV with normal systolic function. LA moderately enlarged. Right atrium moderately enlarged. Mild diffuse mitral valve thickening with trivial MR. Mild TR, RVSP 30 mmHg. Stable appearing bioprosthetic aortic valve apparatus. First EKG in the ER normal sinus rhythm at [address]-T changes . Other comorbidities include hypertension, dyslipidemia: Home medication reconciliation done. Code Visit Inpatient E&M: 34584 Subs Hosp L3
--- NOTE | 2019-07-27 10:06 | CASEMGMT ---
MYRA spoke with Vivi at [facility]. She asked that SW fax updates. MYRA told her SW does not have a dialysis schedule other than M,W,F third shift. MYRA faxed updates to [facility]. MYRA did obtain a dialysis schedule from [facility] for M,W,F at 3p. MYRA wrote this on fax face sheet. Ignacia MUÑIZ GROCERY CLERK
[2019-07-27] MEDS: Amiodarone 200 MG Tablet PO (10:07)
--- NOTE | 2019-07-27 10:09 | CASEMGMT ---
This YUNIOR JACK received call from Troy at [facility], stating that financial approval has been obtained and pt is set up with a MWF chair time at 1500. Troy' contact info for further updates on discharge is as follows: ext. [phone]. Judith RENTERIA updated on chair time and to notify SNF for acceptance and precert, voices understanding. Pt also awaiting tunnel cath placement. SStvictorina MOJICA CM
--- NOTE | 2019-07-27 15:39 | PN_ITS ---
Patient Problems: Active and Suspected Problems (Last Reviewed 07/14/19 @ 18:38 by Joan Charles) Severe sepsis (Acute) Community acquired pneumonia (Acute) Subjective: no sob/cp seen on HD tolerating well - Physical Exam Vitals/I&O's: Vital Signs Temp Pulse Resp BP Pulse Ox 98.2 F 79 18 147/66 H 96 07/27/19 14:54 07/27/19 14:54 07/27/19 14:54 07/27/19 14:54 07/27/19 14:54 Oxygen Flow Rate (L/min) 2 Oxygen Delivery Method Nasal Cannula Weight: 71.1 kg Body Mass Index (BMI) 25.4 Intake and Output for Last 24 Hours 07/25/19 07/26/19 07/27/19 23:59 23:59 23:59 Intake Total 1050 / 1050 720 / 720 240 / 240 Output Total 2049 / 2049 825 / 825 550 / 550 Balance -1000 / -1000 -105 / -105 -310 / -310 General: Alert, Oriented x3, Cooperative HEENT: Atraumatic, PERRLA, EOMI, Normocephalic Neck: Supple, No JVD, Negative Carotid Bruits Lungs: Clear to auscultation, Normal air movement Cardiovascular: Regular rate, No murmurs Abdomen: Bowel Sounds Present, Soft, Non Tender Extremities: No edema, Capillary Refill Less than 3 Seconds Skin: No rashes, No breakdown Musculoskeletal: No Tenderness to Palpation of Joints or Extremities Neurological: Cranial nerves II-XII grossly intact Psych/Mental Status: Normal Affect, Appropriate Comment: RIJ temporary HD catheter Laboratory Results 07/27/19 04:45: Sodium 142, Potassium 4.2, Chloride 106, Carbon Dioxide 27.0, Anion Gap 9, BUN 85 H, Creatinine 5.84 H, Estim Creat Clear Calc 9.75, Est GFR (MDRD) Af Amer 12 L, Est GFR (MDRD) Non-Af 10 L, BUN/Creatinine Ratio 14.6, Glucose 95, Calcium 7.6 L Current Medications Acetaminophen (Tylenol) 650 mg PO Q6H PRN PRN PRN Reason: PAIN 1-10 OR FEVER Amiodarone HCl (Cordarone) 200 mg PO DAILY GIANNA Last Admin: 07/27/19 10:07 Dose: 200 mg Documented by: Heparin Sodium (Porcine) (Heparin Na) 5,000 unit SC Q12 GIANNA Last Admin: 07/27/19 09:00 Dose: Not Given Documented by: Heparin Sodium (Porcine) () 2,600 units IV PRN PRN PRN Reason: after dialysis Sodium Chloride () 250 mls @ 15 mls/hr IV .[id number] PRN PRN Reason: Saline Flush Last Infusion: 07/22/19 15:49 Dose: Infused Documented by: Cefazolin Sodium 2 gm/ Sodium (Chloride) 110 mls @ 150 mls/hr IV X1 ONE Stop: 07/28/19 10:43 Ipratropium [place] (Atrovent) 0.5 mg INHALATION Q4H.RT GIANNA Last Admin: 07/27/19 14:42 Dose: 0.5 mg Documented by: Ondansetron HCl (Zofran) 4 mg IV Q6H PRN PRN PRN Reason: NAUSEA/VOMITING Rosuvastatin Calcium (Crestor) 10 mg PO QHS GIANNA Last Admin: 07/26/19 22:03 Dose: 10 mg Documented by: Sodium Chloride () 10 - 40 ml IV UD PRN PRN Reason: SALINE FLUSH Last Admin: 07/27/19 04:49 Dose: 20 ml Documented by: Medical Necessity - Tobacco Use Smoking Status: Former smoker Tobacco Use: Cigarettes, Cigars Assessment/Plan All Active Problems (Last Reviewed 07/14/19 @ 18:38 by Joan Charles) Severe sepsis (Acute) Community acquired pneumonia (Acute) 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 d/w patient family and HD RN seen on HD tolerating well
--- NOTE | 2019-07-27 17:52 | PCM.CONS.GEN ---
Problem List (1) Acute kidney injury Status: Acute Reason for Consult Date of Consultation: 07/27/19 History of Present Illness: The patient is a 79 year old M who I have been asked to see by Dr. Dutton and a written copy of my surgical consult recommendations will be present in his electronic medical records. This is a highly complicated 79-year-old gentleman who was admitted to the [facility] back on July 16, 2019. He was in acute respiratory distress. A. fib with RVR. An acute pneumonia acute kidney injury and sepsis with ATN. Right internal jugular temporary dialysis catheters were placed on July 19, [address] Marinelli. The patient now is deemed to require tunneled dialysis catheters and I been asked to assist. The patient has previously had open heart surgery proximately a year ago. The patient's remembers lines being placed at that time. By report he does not have a pacemaker. He does have a right upper extremity PICC line in place. Past Medical History Past Medical History (Chronic Problems): Chronic Problems (Last Reviewed 07/14/19 @ 18:38 by Joan Charles) History of aortic stenosis (Chronic) ROSA to LAD, reverse SVG to OM and PDA of RCA along with AVR using 25 Andrew Awan valve, per Dr. Darrion Meyer, [facility] H/O aortic valve replacement (Chronic 05/22/18) ROSA to LAD, reverse SVG to OM and PDA of RCA along with AVR using 25 Andrew Awan valve, per Dr. Darrion Meyer, [facility] S/P CABG x 3 (Chronic 05/22/18) ROSA to LAD, reverse SVG to OM and PDA of RCA along with AVR using 25 Andrew Awan valve, per Dr. Darrion Meyer, [facility] Hypertension (Chronic) Dyslipidemia (Chronic) Atherosclerosis of coronary artery of [place] heart without angina pectoris (Chronic) Medical History: Medical History (Last Reviewed 07/14/19 @ 18:38 by Joan Charles) Tachy-raissa syndrome (Acute) Onset Date: 05/24/18 I49.5 Noted on discharge summary from [facility] after CABG and AVR Atelectasis (Acute) J98.11 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) I97.89, I48.91 History of aortic stenosis (Chronic) Z86.79 ROSA to LAD, reverse SVG to OM and PDA of RCA along with AVR using 25 Andrew Awan valve, per Dr. Darrion Meyer, [facility] Hypertension (Chronic) I10 Dyslipidemia (Chronic) E78.5 Atherosclerosis of coronary artery of [place] heart without angina pectoris (Chronic) I25.10 Asthma J45.909 Diverticulitis K57.92 Eczema L30.9 Inguinal hernia K40.90 Bilateral pneumothorax Onset Date: 09/01/13 J93.9 Non-rheumatic aortic stenosis (Resolved) I35.0 Allergies atorvastatin Adverse Reaction (Verified 07/16/19 11:07) myalgias Home Medications: Ambulatory Orders Medication Instructions Recorded albuterol sulfate 90 mcg/actuation 2 puff INHALATION Q6H PRN 06/12/18 aerosol inhaler fluticasone 250 mcg-salmeterol 50 1 inh INHALATION BID 06/12/18 mcg/dose blistr powdr for inhalation metoprolol tartrate 50 mg tablet 50 mg PO BID 01/01/19 Aspirin [Aspir-Low] 81 mg PO DAILY@0800 07/16/19 Furosemide [Lasix] 20 mg PO BID 07/16/19 Multivitamin with Minerals 1 tab PO DAILY 07/16/19 [Multiple Vitamin] Potassium Chloride 10 meq PO DAILY 07/16/19 Rosuvastatin Calcium 10 mg PO DAILY 07/16/19 Surgical History: Surgical History (Last Reviewed 07/14/19 @ 18:38 by Joan Charles) H/O aortic valve replacement (Chronic) Onset Date: 05/22/18 Z95.2 ROSA to LAD, reverse SVG to OM and PDA of RCA along with AVR using 25 Andrew Awan valve, per Dr. Darrion Meyer, [facility] S/P CABG x 3 (Chronic) Onset Date: 05/22/18 Z95.1 ROSA to LAD, reverse SVG to OM and PDA of RCA along with AVR using 25 Andrew Awan valve, per Dr. Darrion Meyer, [facility] History of open reduction and internal fixation (ORIF) procedure Z98.890 RLE History of inguinal hernia repair Z98.890, Z87.19 History of left heart catheterization Onset Date: 09/18/17 Z98.890 LMT-30-40% ostial stenosis Mid LAD 60-70% stenosis Mid Cx 50% Stenosis RCA 100% INSPECTOR EXHAUST EMISSIONS after mid portion w/ left-right collaterals Surgical History: coronary bypass surgery Smoking Status: Former smoker Tobacco Use: Cigarettes, Cigars Alcohol: None Drugs: None - *Family History Paternal History Items: Heart Disease Review of Systems Constitutional: Reports: Weakness, Fatigue Respiratory: Reports: Cough Gastrointestinal: Denies: Abdominal Pain Patient Problems: Active and Suspected Problems (Last Reviewed 07/14/19 @ 18:38 by Joan Charles) Severe sepsis (Acute) Community acquired pneumonia (Acute) Acute kidney injury (Acute) - Physical Exam Vitals/I&O's: Vital Signs Temp Pulse Resp BP Pulse Ox 98.2 F 82 18 147/66 H 96 07/27/19 14:54 07/27/19 15:38 07/27/19 14:54 07/27/19 14:54 07/27/19 14:54 Oxygen Flow Rate (L/min) 2 Oxygen Delivery Method Nasal Cannula Weight: 156 lb 11.979 oz Body Mass Index (BMI) 25.4 Intake and Output for Last 24 Hours 07/25/19 07/26/19 07/27/19 23:59 23:59 23:59 Intake Total 1050 / 1050 720 / 720 240 / 240 Output Total 2049 / 2049 825 / 825 550 / 550 Balance -1000 / -1000 -105 / -105 -310 / -310 General: Lethargic HEENT: - - Right internal jugular temporary dialysis catheters in place Neck: Supple Lungs: - - Poor respiratory excursion, clear in the apices Cardiovascular: Regular rate, Regular Rhythm Abdomen: Soft, Non Tender Laboratory Results 07/27/19 04:45: Sodium 142, Potassium 4.2, Chloride 106, Carbon Dioxide 27.0, Anion Gap 9, BUN 85 H, Creatinine 5.84 H, Estim Creat Clear Calc 9.75, Est GFR (MDRD) Af Amer 12 L, Est GFR (MDRD) Non-Af 10 L, BUN/Creatinine Ratio 14.6, Glucose 95, Calcium 7.6 L Current Medications Acetaminophen (Tylenol) 650 mg PO Q6H PRN PRN PRN Reason: PAIN 1-10 OR FEVER Amiodarone HCl (Cordarone) 200 mg PO DAILY GIANNA Last Admin: 07/27/19 10:07 Dose: 200 mg Documented by: Heparin Sodium (Porcine) (Heparin Na) 5,000 unit SC Q12 [facility] Last Admin: 07/27/19 09:00 Dose: Not Given Documented by: Heparin Sodium (Porcine) () 2,600 units IV PRN PRN PRN Reason: after dialysis Sodium Chloride () 250 mls @ 15 mls/hr IV .[id number] PRN PRN Reason: Saline Flush Last Infusion: 07/22/19 15:49 Dose: Infused Documented by: Cefazolin Sodium 2 gm/ Sodium (Chloride) 110 mls @ 150 mls/hr IV X1 ONE Stop: 07/28/19 10:43 Ipratropium [place] (Atrovent) 0.5 mg INHALATION Q4H.RT GIANNA Last Admin: 07/27/19 14:42 Dose: 0.5 mg Documented by: Ondansetron HCl (Zofran) 4 mg IV Q6H PRN PRN PRN Reason: NAUSEA/VOMITING Rosuvastatin Calcium (Crestor) 10 mg PO QHS [facility] Last Admin: 07/26/19 22:03 Dose: 10 mg Documented by: Sodium Chloride () 10 - 40 ml IV UD PRN PRN Reason: SALINE FLUSH Last Admin: 07/27/19 04:49 Dose: 20 ml Documented by: Assessment/Plan All Active Problems (Last Reviewed 07/14/19 @ 18:38 by Joan Charles) Severe sepsis (Acute) Community acquired pneumonia (Acute) Acute kidney injury (Acute) 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) Atelectasis (Acute) 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) 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 He is currently on hemodialysis via his right internal jugular tunneled dialysis catheters. I propose for him an attempt at a left internal jugular approach for tunneled catheter placement. If this is not successful then I will inspect the right internal jugular. Family members are present and they are aware of the technique, benefit, risks, alternatives. We will keep the patient fasting after midnight. Plan to proceed approximately 10:00 tomorrow morning. His right IJ temporary catheters will be removed tonight. It is unclear what quality of life he will regain at this time. As noted he has the right upper extremity basilic vein PICC line in place. The patient and family members have had an opportunity to ask and have questions answered. We will proceed as noted. Obie Cheung M.D., F.A.C.S.
--- NOTE | 2019-07-27 19:07 | DIALYSIS ---
Hemodialysis x 3.5 hours with 3K bath; tolerated well. Removed = -1000; RIJ CVC removed post dialysis. Pressure applied x 15min. Stasis complete; Pressure dressing applied; Tolerated well. Report given to YUNIOR.
[2019-07-27] MEDS: Rosuvastatin 20 MG Tablet 10 MG PO (21:03)
[2019-07-27] MEDS: Heparin Injection (Vial) 5,000 UNIT/ML VIAL 5000 UNIT SC (21:03)
[2019-07-28] VITALS (16 sets, daily range): BP systolic 115–161; BP diastolic 55–71; PULSE 73–89; RESP 14–20; TEMP 36.6–36.8; O2SAT 92–98; BMI 24.9
[2019-07-28] MEDS: Ipratropium 0.5 MG/2.5 ML SOLUTION INHALATION ×3 (03:05→15:07)
[2019-07-28] MEDS: 0.9% Saline Lock 10 ML Syringe IV ×2 (04:40→19:13)
[2019-07-28 04:58] LABS: Absolute Lymphocyte Count 0.84 X10^3/uL (0.83-4.51); Absolute Neutrophil Count 6.8 X10^3/uL (2.0-7.7); Basophil# 0.04 X10^3/uL; Basophil% 0.5 % (0-1); Eosinophil# 0.15 X10^3/uL; Eosinophils% 1.7 % (0-5); Hematocrit 30.3 % (40-54); Hemoglobin 10.1 g/dL (13.0-16.5); Lymphocyte # 0.84 X10^3/ul (4.0); Lymphocyte % 9.8 % (19-41); Mean Corp Hgb Conc 33.3 g/dL (32-36); Mean Corpuscular Hgb 31.1 pg (27.0-32.0); Mean Corpuscular Volume 93.2 fL (80-94); Monocyte# 0.57 X10^3/uL; Monocyte% 6.6 % (0-10); NRBC Flagged by Analyzer 0 % (0-5); Neutrophil # 6.79 X10^3/uL (2.7-7.7); Neutrophil % 79.1 % (47-70); Platelet Count 166 K/mm3 (150-450); RBC Distribution Width CV 14.4 % (11.6-14.6); RBC Distribution Width SD 49.2 fl (35.1-43.9); Red Blood Count 3.25 M/mm3 (4.6-6.2); White Blood Count 8.6 K/mm3 (4.4-11.0)
[2019-07-28 05:10] LABS: Partial Thromboplast Time 31.5 Seconds (24.1-36.2)
[2019-07-28 05:20] LABS: Anion Gap 6 (5-15); BUN 44 mg/dL (7-18); BUN/Creat Ratio 11.5 RATIO (10-20); Calcium,Total 7.6 mg/dL (8.5-10.1); Chloride 102 mmol/L (98-107); Creatinine, Serum 3.81 mg/dL (0.70-1.30); EST Glomerular Filtration Rate 16 mL/min (>60); Est Glom Filt Rate - Afr Amer 20 mL/min (>60); Estimated Creatinine Clearance 14.94 ml/min; Glucose 89 mg/dL (74-106); Potassium 4.2 mmol/L (3.5-5.1); Sodium Level 138 mmol/L (136-145)
--- NOTE | 2019-07-28 05:55 | EKG12_ITS ---
Test Reason : AM EKG Blood Pressure : / mmHG Vent. Rate : 071 BPM Atrial Rate : 071 BPM P-R Int : 244 ms QRS Dur : 086 ms QT Int : 404 ms P-R-T Axes : 066 043 067 degrees QTc Int : 439 ms Sinus rhythm with 1st degree A-V block ST & T wave abnormality, consider anterolateral ischemia Abnormal ECG Confirmed by LUKAS VIDAL, JACKSON ([id number]), video effects editor PRINCE FALK ([id number]) on 07/30/2019 11:38:00 AM Referred By: Dinh Galan Confirmed By:JACKSON GAYTAN MD
[2019-07-28] MEDS: Amiodarone 200 MG Tablet PO (08:00)
--- NOTE | 2019-07-28 08:43 | NURSING ---
report called to Kamryn in [facility]
[2019-07-28] MEDS: Cefazolin 2 GM in 0.9% Normal Saline 100 ML IV (09:53)
--- NOTE | 2019-07-28 10:12 | CASEMGMT ---
MYRA spoke with Beth at [facility] and they can accept patient. She started pre-cert yesterday at the end of the day. She is working to find transport. MYRA will let patient and family know [facility] can accept him pending insurance approval. Plan: [facility] pending insurance approval. Ignacia MUÑIZ MSW
[2019-07-28] MEDS: Bupivacaine Mpf 0.5% 30 ML VIAL (10:19)
[2019-07-28] MEDS: Heparin 10,000 UNITS/10 ML Vial 10000 UNITS (10:30)
--- NOTE | 2019-07-28 10:38 | RAD_ITS ---
STUDY: X-RAY CHEST REASON FOR EXAM: Male, 79 years old. POST OP LINE PLACEMENT. TECHNIQUE: Single portable upright frontal chest. COMPARISON: July 20, 2019. FINDINGS: There is been interval extubation. The nasogastric tube has also been discontinued. There is been interval placement of a dual lumen left IJ central venous catheter with catheter tips in the mid to distal superior vena cava. No pneumothorax is identified. Stable appearance and positioning of the right PICC line. Patient is status post median sternotomy. Again seen is diffuse pleural and parenchymal density in the left lateral mid lung and left lung apex. No evident pleural effusion. Normal size heart. Normal mediastinum and josé miguel. Normal visualized pulmonary arteries. There is atherosclerotic calcification of the aortic arch with tortuosity. There is diffuse demineralization without evident acute osseous abnormality. There is no demonstrated abnormality of the visualized soft tissue structures of the upper abdomen. RAD/CXR for Line Placement IMPRESSION: Support tubes and lines as above. No evident pneumothorax. No pleural effusion. Left upper lobe pneumonia versus chronic atelectasis and/or potential pleural fibrosis. Atherosclerotic peripheral vascular disease. Senescent changes of the descending thoracic aorta. Electronically Signed: Adithya Kuhn MD at 12:10 EST , Service support ,
--- NOTE | 2019-07-28 10:39 | PCM.OPRPT ---
Problem List (1) Acute kidney injury Status: Acute Report of Operation Date of Procedure: 07/28/19 Pre-Operative Diagnosis: Acute kidney injury Post-Operative Diagnosis: Same Surgery/Procedure Performed:: Left internal jugular pre-curved 23 cm palindrome catheter placement. Lot #[id number]. Expiry date 03/04/2024 Description of Surgical Findings:: Timeout and informed consent was obtained. 79-year-old gentleman was taken to the operating placement table underwent monitored anesthesia care. Ancef 2 g given intravenously. The left neck and chest were sterilely prepped and draped. Under ultrasound guidance 1% lidocaine mixed 50-50 with 0.5% Marcaine was used as local anesthetic. A total of 20 cc was used. Local was instilled. Micropuncture needle inserted in the left internal jugular vein followed by Seldinger wire advancement. Fluoroscopy demonstrated good positioning. Local was instilled down upon the left chest wall. An exit site was selected. The 23 cm pre-curved palindrome catheter was tunneled from the chest to the neck. Micropuncture sheath was inserted. 035 J-wire was inserted. Sheath was removed. Serial dilatation was performed. The sheath dilator was placed over the wire under direct fluoroscopic visualization. The wire and dilator were removed. The catheter was advanced through the sheath. The sheath was split. The catheter was positioned to have a very nice curvilinear position and reside close to the SVC atrial junction. It aspirated very easily and it was flushed with 10 cc of saline and then 2 cc of heparinized saline per channel. The neck site was closed with interrupted 5-0 Vicryl subdermal stitches Steri-Strips Telfa OpSite. The catheter was secured to the chest with 3-0 nylon. Silver impregnated dressings applied. Sponge and instrument and needle counts were reported to the surgeon to be correct. He tolerated the procedure well was taken to the recovery area in satisfactory addition without apparent complication. Stat portable chest x-ray is pending. Specimens none. Blood loss minimal. Drains none. Obie Cheung M.D., F.A.C.S. Type of Anesthesia:: Local MAC Anesthesiologist: Puma Velázquez
--- NOTE | 2019-07-28 12:30 | CASEMGMT ---
SW spoke with patient's family and let them know that [facility] can accept patient. SW explained we will just need to wait on insurance to approve him before he can leave. MYRA explained that if we do not hear today it likely won't be until as insurance is closed for the holiday. SW will put a green sheet on chart and have [facility] call PCU should they get pre-cert after SW leaves for the day. Ignacia MUÑIZ RAIL DIRECTOR
--- NOTE | 2019-07-28 15:32 | CASEMGMT ---
YUNIOR JACK NOTE: Per Aliyah Maria RN CM, Troy from [facility] admissions states OP dialysis this week would be and Saturday if pt is discharged to SNF, d/t the holiday. CXR confirming dialysis [facility] @ at this time. Wilmar HUBBARD RN CM
--- NOTE | 2019-07-28 15:42 | PCA ---
Beth from [facility] called to let us know they received pre cert on pt and that it is okay to send them.
--- NOTE | 2019-07-28 15:45 | PCM.PROGNOTE ---
Patient Problems: Active and Suspected Problems (Last Reviewed 07/14/19 @ 18:38 by Joan Charles) Severe sepsis (Acute) Community acquired pneumonia (Acute) Acute kidney injury (Acute) Subjective: The patient is on dialysis and he states he is tolerating dialysis well denies chest pain or shortness of breath. He just had his IJ dialysis catheter tunneled placed on the left side by surgery today. - Physical Exam Vitals/I&O's: Vital Signs Temp Pulse Resp BP Pulse Ox 97.8 F 89 16 139/71 H 96 07/28/19 13:36 07/28/19 15:05 07/28/19 13:36 07/28/19 13:36 07/28/19 13:36 Oxygen Flow Rate (L/min) 2 Oxygen Delivery Method Nasal Cannula Weight: 68.5 kg Body Mass Index (BMI) 25.4 Intake and Output for Last 24 Hours 07/26/19 07/27/19 07/28/19 23:59 23:59 23:59 Intake Total 720 / 720 480 / 600 350 / 350 Output Total 825 / 825 1850 / 2050 650 / 650 Balance -105 / -105 -1370 / -1450 -300 / -300 General: Alert, Oriented x3, Cooperative HEENT: Atraumatic, PERRLA, EOMI, Normocephalic Neck: Supple, No JVD, Negative Carotid Bruits Lungs: Clear to auscultation, Normal air movement Cardiovascular: Regular rate, No murmurs Abdomen: Bowel Sounds Present, Soft, Non Tender Extremities: No edema, Capillary Refill Less than 3 Seconds Skin: No rashes, No breakdown Musculoskeletal: No Tenderness to Palpation of Joints or Extremities Neurological: Cranial nerves II-XII grossly intact Psych/Mental Status: Normal Affect, Appropriate Laboratory Results 07/28/19 04:35: Sodium 138, Potassium 4.2, Chloride 102, Carbon Dioxide 30.0, Anion Gap 6, BUN 44 H, Creatinine 3.81 H, Estim Creat Clear Calc 14.94, Est GFR (MDRD) Af Amer 20 L, Est GFR (MDRD) Non-Af 16 L, BUN/Creatinine Ratio 11.5, Glucose 89, Calcium 7.6 L 07/28/19 04:35: WBC 8.6, RBC 3.25 L, Hgb 10.1 L, Hct 30.3 L, MCV 93.2, MCH 31.1, MCHC 33.3, RDW Std Deviation 49.2 H, RDW Coeff of Jeanne 14.4, Plt Count 166, MPV 10.0, Immature Gran % (Auto) 2.300 H, Neut % (Auto) 79.1 H, Lymph % (Auto) 9.8 L, [place] % (Auto) 6.6, Eos % (Auto) 1.7, Baso % (Auto) 0.5, Absolute Neuts (auto) 6.8, Absolute Lymphs (auto) 0.84, Nucleated RBC % 0 07/28/19 04:35: APTT 31.5 Current Medications Acetaminophen (Tylenol) 650 mg PO Q6H PRN PRN PRN Reason: PAIN 1-10 OR FEVER Amiodarone HCl (Cordarone) 200 mg PO DAILY [facility] Last Admin: 07/28/19 08:00 Dose: 200 mg Documented by: Heparin Sodium (Porcine) (Heparin Na) 5,000 unit SC Q12 [facility] Last Admin: 07/28/19 07:34 Dose: Not Given Documented by: Heparin Sodium (Porcine) () 2,600 units IV PRN PRN PRN Reason: after dialysis Sodium Chloride () 250 mls @ 15 mls/hr IV .[id number] PRN PRN Reason: Saline Flush Last Admin: 07/28/19 09:19 Dose: 15 mls/hr Documented by: Ipratropium [place] (Atrovent) 0.5 mg INHALATION Q4H.RT [facility] Last Admin: 07/28/19 15:07 Dose: 0.5 mg Documented by: Ondansetron HCl (Zofran) 4 mg IV Q6H PRN PRN PRN Reason: NAUSEA/VOMITING Rosuvastatin Calcium (Crestor) 10 mg PO QHS [facility] Last Admin: 07/27/19 21:03 Dose: 10 mg Documented by: Sodium Chloride () 10 - 40 ml IV UD PRN PRN Reason: SALINE FLUSH Last Admin: 07/28/19 04:40 Dose: 20 ml Documented by: Medical Necessity - Tobacco Use Smoking Status: Former smoker Tobacco Use: Cigarettes, Cigars Assessment/Plan All Active Problems (Last Reviewed 07/14/19 @ 18:38 by Joan Charles) Severe sepsis (Acute) Community acquired pneumonia (Acute) Acute kidney injury (Acute) 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 d/w patient family and HD RN seen on HD tolerating well placement in dialysis unit almost done per SW
--- NOTE | 2019-07-28 15:55 | PCM.TXEXTCAR ---
- Diet 07/28/19 00:01 NPO [Diet: Nothing Per Oral] Is pt able to select menu?: Yes Diet Comments: LOW SODIUM, small bites/sips, slow rate, seated upright - Routine Orders/Code Status Suppository Type: Dulcolax 10mg Suppository Frequency: Daily PRN - Wound(s) R buttock Wound Type: Pressure Injury Dressing Change: Mepilex L Buttock Wound Type: shearing Dressing Change: Mepilex right chest Wound Type: Puncture left chest Wound Type: Surgical Incision - Therapies Weight Bearing: Weight bearing as tolerated Extremity Affected:: Bilateral Lower Physical Therapy: Eval and Treat Occupational Therapy: Eval and Treat Speech Therapy: Eval and Treat - Problem/Diagnosis (1) Severe sepsis Status: Acute Current Visit: Yes (2) Community acquired pneumonia Status: Acute Current Visit: Yes (3) Tachy-raissa syndrome Status: Acute Comment: Noted on discharge summary from [facility] after CABG and AVR Current Visit: No (4) Atelectasis Status: Acute Current Visit: No (5) Postoperative atrial fibrillation Status: Acute Current Visit: No (6) History of aortic stenosis Status: Chronic Comment: ROSA to LAD, reverse SVG to OM and PDA of RCA along with AVR using 25 Andrew Awan valve, per Dr. Darrion Meyer, [facility] Current Visit: No (7) H/O aortic valve replacement Status: Chronic Comment: ROSA to LAD, reverse SVG to OM and PDA of RCA along with AVR using 25 Andrew Awan valve, per Dr. Darrion Meyer, [facility] Current Visit: No (8) S/P CABG x 3 Status: Chronic Comment: ROSA to LAD, reverse SVG to OM and PDA of RCA along with AVR using 25 Andrew Awan valve, per Dr. 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 Status: Acute Current Visit: No (10) Atrial fibrillation Status: Acute Current Visit: No (11) Hypertension Status: Chronic Current Visit: No (12) Dyslipidemia Status: Chronic Current Visit: No (13) Atherosclerosis of coronary artery of [place] heart without angina pectoris Status: Chronic Current Visit: No - Allergies/Procedures Done in Hospital Allergies/Adverse Reactions: Allergies atorvastatin Adverse Reaction (Verified 07/16/19 11:07) myalgias - Type of Care/Length of Stay Estimated LOS: Convalescent Care Less Than 30 days Type of Care Needed: Skilled Rehab Potential: Fair Prognosis: Fair - Additional Orders/Day of Discharge Day of Discharge: 07/28/19 - Dietary and Speech Recommendations Dietitian Recommendations/Changes: Continue cardiac, low sodium diet- consistency per RESEARCH PROGRAM INTERN. Will provide ONS w/ meals for additional calories/protein if consumed. - Follow Up Care Primary Care Physician: Vidal Adams MD [Primary Care Provider] - Please follow up with your Primary Care Physician in: IN 2 WEEKS Please Follow Up With: Tanvir Lyles MD When: IN 3-4 WEEKS Please Follow Up With: Moe Marinelli MD When: IN 1-2 WEEKS FOR EGD/Colonoscopy Please Follow Up With: Basim Bolivar DO When: in 2 weeks with Delilah Lisa Please Follow Up With: Trey Dutton MD When: on HD
--- NOTE | 2019-07-28 16:13 | PCM.DC.SUM ---
Discharge Date and Diagnosis - Problem List Patient Problems: Active and Suspected Problems (Last Reviewed 07/14/19 @ 18:38 by Joan Charles) Severe sepsis (Acute) Community acquired pneumonia (Acute) Acute kidney injury (Acute) Date of Admission: 07/16/19 Date of Discharge: 07/28/19 - Primary Discharge Diagnosis Active and Suspected Problems (Last Reviewed 07/14/19 @ 18:38 by Joan Charles) Severe sepsis (Acute) Community acquired pneumonia (Acute) Acute kidney injury (Acute) - Secondary Discharge Diagnosis Chronic Problems (Last Reviewed 07/14/19 @ 18:38 by Joan Cahrles) History of aortic stenosis (Chronic) ROSA to LAD, reverse SVG to OM and PDA of RCA along with AVR using 25 Andrew Awan valve, per Dr. Darrion Meyer, [facility] H/O aortic valve replacement (Chronic 05/22/18) ROSA to LAD, reverse SVG to OM and PDA of RCA along with AVR using 25 Andrew Awan valve, per Dr. Darrion Meyer, [facility] S/P CABG x 3 (Chronic 05/22/18) ROSA to LAD, reverse SVG to OM and PDA of RCA along with AVR using 25 Andrew Awan valve, per Dr. Darrion Meyer, [facility] Hypertension (Chronic) Dyslipidemia (Chronic) Atherosclerosis of coronary artery of [place] heart without angina pectoris (Chronic) Hospital Course and Treatment Imaging Results: 07/28/19 10:08 O.R. Fluoro for C-Arm [RAD] Urgent 07/28/19 10:38 CXR for Line Placement [RAD] Urgent Consultations 07/20/19 13:52 Consult: Onc/Wound/oracle application architect Routine Comment: Summary of Care Provided: [] The patient is a 79 year old M with history of coronary artery disease status post CABG three-vessel, aortic stenosis status post AVR in April 2018, paroxysmal A. fib was sent to urgent care from Dr. Lyles office after he was found short of breath and hypoxic. From urgent care patient was sent to ER. Patient was not on oxygen at home In ED, patient was found hypoxic, 88% on room air, tachypneic respiratory 24, 93% on 3 L oxygen. During conversation and exam, he became more hypoxic and tachypneic, respiratory 35/min and 92% oxygen requirement 5 L. Chest x-ray showed large area of consolidation in the left upper lobe and lingular lobe same superior segment of left lower lobe. While in ER, patient went into A. fib with RVR, on monitor heart rate 155/min. EKG was done shows A. fib with RVR at 60/min 1. Septic shock (tachycardia, tachypnea, leukocytosis, bandemia and lactic acidosis, 3.2, coagulopathy INR 1.8 total bili 1.6,) and acute hypoxic respiratory failure, present on admission secondary to left upper lobe/lingular and superior segment of left lower lobe, multilobar community-acquired strep pneumoniae pneumonia: Patient was admitted in ICU. Urinary antigens were negative. Sputum culture was positive for Streptococcus pneumoniae. Patient completed antibiotic. 2. acute hypoxemic respiratory failure-secondary to community-acquired pneumonia (Streptococcus pneumoniae)-patient is currently on low-flow oxygen via nasal cannula. On 2 L of oxygen 3. upper GI bleed with mild acute anemia secondary to blood loss/hemodilution and small bowel ileus/intestinal malrotation: Patient had coffee grounds/bloody aspirate from OG tube. Patient was seen by surgeon Dr. Corrales. Patient also had CT abdomen pelvis and reported gastric ileus with contrast in the stomach and a scant amount of contrast in proximal duodenum and small bowel. Patient was seen by surgeon and signed off as his thought does not have mechanical intestinal obstruction but ileus. Ileus is resolved. Need outpatient follow-up with Dr. Corrales for EGD and colonoscopy. 3. A. fib with RVR with history of tachybradycardia syndrome: Patient has history of paroxysmal A. fib and had postoperative A. fib after CABG. On amiodarone. Aspirin is resumed. Currently if patient tolerates aspirin and hemoglobin does not drop in SNF can try for Eliquis. Acute kidney injury most sepsis/ATN: Patient baseline creatinine is unknown, last one 1.2 in August 2013. Admitted with BUN/creatinine 27/1.83. Patient is currently on hemodialysis. Dr. Cheung been consulted by electric brain wave equipment mechanic for tunneled dialysis catheter. 4. Coronary artery disease status post CABG x3, aortic stenosis status post aortic valve replacement in April 2018: Recent echo on 07/03/2019 reported as EF 65% with stage I diastolic dysfunction. Moderate concentric LVH. Mildly dilated RV with normal systolic function. LA moderately enlarged. Right atrium moderately enlarged. Mild diffuse mitral valve thickening with trivial MR. Mild TR, RVSP 30 mmHg. Stable appearing bioprosthetic aortic valve apparatus. First EKG in the ER normal sinus rhythm at [address]-T changes Discharge medication reconciliation done. Discharge follow-up instructions completed. Discharge process discussed with the patient and all questions were answered to patient's satisfaction. Follow-up CBC, BMP in SNF. Total time spent, exact 35 minutes on discharge meds reconciliation, examination, review of imaging and blood test and discussion with the patient on follow-up instructions. Patient Problems: Active and Suspected Problems (Last Reviewed 07/14/19 @ 18:38 by Joan Charles) Severe sepsis (Acute) Community acquired pneumonia (Acute) Acute kidney injury (Acute) Subjective: Patient slowly recovering. Denies shortness of breath or chest pain. Heart rate is controlled. Sinus rhythm. - Physical Exam Vitals/I&O's: Vital Signs Temp Pulse Resp BP Pulse Ox 98.0 F 88 16 128/62 H 97 07/28/19 15:36 07/28/19 15:36 07/28/19 15:36 07/28/19 15:36 07/28/19 15:36 Oxygen Flow Rate (L/min) 2 Oxygen Delivery Method Nasal Cannula Weight: 151 lb 0.266 oz Body Mass Index (BMI) 25.4 Intake and Output for Last 24 Hours 07/26/19 07/27/19 07/28/19 23:59 23:59 23:59 Intake Total 720 / 720 480 / 600 450.75 / 450.75 Output Total 825 / 825 1850 / 2050 650 / 650 Balance -105 / -105 -1370 / -1450 -199.25 / -199.25 General: Alert, Oriented x3, Cooperative HEENT: Atraumatic, PERRLA, EOMI, Normocephalic Neck: Supple, No JVD, Negative Carotid Bruits Lungs: Clear to auscultation, No rhonchi, No wheeze, No rales, Diminished - Air entry is diminished in in left lung base. Cardiovascular: Regular rate, Regular Rhythm, Normal S1, Normal S2, No murmurs Abdomen: Bowel Sounds Present, Soft, Non Tender, Non-Distended Extremities: No edema, Capillary Refill Less than 3 Seconds Skin: No rashes, No breakdown Musculoskeletal: No Tenderness to Palpation of Joints or Extremities, Arthritic Changes Neurological: Cranial nerves II-XII grossly intact, Neuro grossly intact Psych/Mental Status: Normal Affect, Appropriate Laboratory Results 07/28/19 04:35: Sodium 138, Potassium 4.2, Chloride 102, Carbon Dioxide 30.0, Anion Gap 6, BUN 44 H, Creatinine 3.81 H, Estim Creat Clear Calc 14.94, Est GFR (MDRD) Af Amer 20 L, Est GFR (MDRD) Non-Af 16 L, BUN/Creatinine Ratio 11.5, Glucose 89, Calcium 7.6 L 07/28/19 04:35: WBC 8.6, RBC 3.25 L, Hgb 10.1 L, Hct 30.3 L, MCV 93.2, MCH 31.1, MCHC 33.3, RDW Std Deviation 49.2 H, RDW Coeff of Jeanne 14.4, Plt Count 166, MPV 10.0, Immature Gran % (Auto) 2.300 H, Neut % (Auto) 79.1 H, Lymph % (Auto) 9.8 L, [place] % (Auto) 6.6, Eos % (Auto) 1.7, Baso % (Auto) 0.5, Absolute Neuts (auto) 6.8, Absolute Lymphs (auto) 0.84, Nucleated RBC % 0 07/28/19 04:35: APTT 31.5 Current Medications Acetaminophen (Tylenol) 650 mg PO Q6H PRN PRN PRN Reason: PAIN 1-10 OR FEVER Amiodarone HCl (Cordarone) 200 mg PO DAILY [facility] Last Admin: 07/28/19 08:00 Dose: 200 mg Documented by: Heparin Sodium (Porcine) (Heparin Na) 5,000 unit SC Q12 [facility] Last Admin: 07/28/19 07:34 Dose: Not Given Documented by: Heparin Sodium (Porcine) () 2,600 units IV PRN PRN PRN Reason: after dialysis Sodium Chloride () 250 mls @ 15 mls/hr IV .[id number] PRN PRN Reason: Saline Flush Last Infusion: 07/28/19 16:02 Dose: 0 mls/hr Documented by: Ipratropium [place] (Atrovent) 0.5 mg INHALATION Q4H.RT [facility] Last Admin: 07/28/19 15:07 Dose: 0.5 mg Documented by: Ondansetron HCl (Zofran) 4 mg IV Q6H PRN PRN PRN Reason: NAUSEA/VOMITING Rosuvastatin Calcium (Crestor) 10 mg PO QHS [facility] Last Admin: 07/27/19 21:03 Dose: 10 mg Documented by: Sodium Chloride () 10 - 40 ml IV UD PRN PRN Reason: SALINE FLUSH Last Admin: 07/28/19 04:40 Dose: 20 ml Documented by: Home Medications: Medications to take at Discharge albuterol sulfate 90 mcg/actuation aerosol inhaler 2 puff INHALATION Q6H PRN 06/12/18 fluticasone 250 mcg-salmeterol 50 mcg/dose blistr powdr for inhalation 1 inh INHALATION BID 06/12/18 Multivitamin with Minerals [Multiple Vitamin] 1 tab PO DAILY 07/16/19 Rosuvastatin Calcium 10 mg PO DAILY 07/16/19 Acetaminophen [Tylenol Tablet] 650 mg PO Q6H PRN PRN tab 07/28/19 Amiodarone HCl [Cordarone] 200 mg PO DAILY tab 07/28/19 Aspirin [Aspir-Low] 81 mg PO DAILY@0800 #0 07/28/19 Ipratropium [Atrovent Aerosols] 0.5 mg INHALATION Q4H PRN PRN solution 07/28/19 Metoprolol Tartrate [Lopressor (beta sharon)] 25 mg PO BID #0 07/28/19 Primary Care Physician: Vidal Adams MD [Primary Care Provider] - Please follow up with your Primary Care Physician in: IN 2 WEEKS Please Follow Up With: Tanvir Lyles MD When: IN 3-4 WEEKS Please Follow Up With: Moe Marinelli MD When: IN 1-2 WEEKS FOR EGD/Colonoscopy Please Follow Up With: Basim Bolivar DO When: in 2 weeks with Delilah Lisa Please Follow Up With: Trey Dutton MD When: on HD Medical Necessity - Tobacco Use Smoking Status: Former smoker Tobacco Use: Cigarettes, Cigars Meaningful Use Info Meaningful Use Diagnoses (Choose all that apply): None applicable Code Visit Inpatient E&M: 98508 Disch Hosp
--- NOTE | 2019-07-30 09:10 | CASEMGMT ---
SW received a call from Beth at [facility]. She said they called to see what time patient is supposed to go for dialysis today and she was told insurance still has not approved. MYRA told her that the RN GUERO on Saturday was told the patient's insurance did approve dialysis. MYRA told her SW will talk with YUNIOR JACK and give her a call back. MYRA relayed this information to YUNIOR Holbrook and she is talking with Flaco to figure this our. Ignacia MUÑIZ JAVASCRIPT SOFTWARE ENGINEER
--- NOTE | 2019-07-30 09:20 | CASEMGMT ---
Addendum entered by Yusef Roy 07/30/19 10:32: Call placed to [facility] and spoke with Della. Della states Troy is not in today. Della states she looked up information/notes on this pt and note just entered a couple of minutes ago states that pt can start dialysis today with chair time of 1500. Della states she will call Beth early childhood services coordinator @ [place], and inform her of this as well. Original Note: RN CM NOTE: Ignacia RENTERIA, informed this RN CM that Beth early childhood services coordinator @ [place] states she was informed Dialysis insurance approval still needed. Call placed to [facility] and spoke with Enzo. Enzo confirms that Insurance has been approved but there is some type of authorization needed. He states he will reach out to Troy @ [facility] so they can work things out. Enzo aware pt has been discharged to [facility]. He states pt is on the schedule to receive dialysis @ [facility] today, w/arrival time being 1445. Received fax sheet showing that CXR/line placement faxed on to [facility] did not go through. Fax number to [facility] received from Enzo at this time. CXR/Line placement faxed to this number at this time. Confirmation received that this went through. This RN CM awaiting call back from Troy re: insurance auth. Wilmar CATN RN CM
--- NOTE | 2019-07-30 09:26 | CASEMGMT ---
Addendum entered by Ignacia Hammond 07/30/19 10:57: YUNIOR JACK was able to get everything worked out and patient is on the schedule for today at 3 and the insurance issue has been resolved. Flaco was going to call Beth and let her know. MYRA also called Beth and left a message for her letting her know above. Ignacia MUÑIZ BALLAST REGULATOR OPERATOR Original Note: YUNIOR Holbrook spoke with Flaco. It appears insurance did approve, but there is some other authorization. Troy from [facility] is supposed to be calling Yusef back. MYRA called Beth at [facility] and let her know. Ignacia MUÑIZ BALLAST REGULATOR OPERATOR
== END 2019-07-28 20:50 | disposition skilled nursing facility (03) | DRG 870 ==
LOC: ED 13:11 → ICU 15:26 → PCU 07-24 10:55
PROVIDERS: Internal Medicine; Internal Medicine Cardiovascular Disease; Internal Medicine Critical Care Medicine; Nurse Anesthetist, Certified Registered; Pediatrics Pediatric Nephrology; Surgery; Admitting Provider Internal Medicine; Emergency Provider Emergency Medicine; Family Provider Family Medicine; PCP Family Medicine; Referring Provider Internal Medicine; Visit Provider Internal Medicine
PROC: 0JH63XZ Insertion of Tunneled Vascular Access Device into Chest Subcutaneous Tissue and Fascia, Percutaneous Approach (ICD-10-PCS; principal; 2019-07-28 09:45)
DX: A41.9 Sepsis, unspecified organism (principal); J96.01 Acute respiratory failure with hypoxia; R65.21 Severe sepsis with septic shock; J13 Pneumonia due to Streptococcus pneumoniae; N17.0 Acute kidney failure with tubular necrosis; K56.7 Ileus, unspecified; K92.2 Gastrointestinal hemorrhage, unspecified; I25.10 Atherosclerotic heart disease of native coronary artery without angina pectoris; I48.0 Paroxysmal atrial fibrillation; E78.5 Hyperlipidemia, unspecified; I35.0 Nonrheumatic aortic (valve) stenosis; Z87.891 Personal history of nicotine dependence; Z95.1 Presence of aortocoronary bypass graft; Z79.01 Long term (current) use of anticoagulants; Z95.3 Presence of xenogenic heart valve; N18.3 Chronic kidney disease, stage 3 (moderate); I12.9 Hypertensive chronic kidney disease with stage 1 through stage 4 chronic kidney disease, or unspecified chronic kidney disease; D50.0 Iron deficiency anemia secondary to blood loss (chronic)
CPT/HCPCS: 31500; 31720; 36415; 36569; 36600; 71045; 74018; 74177; 76000; 80048; 80053; 80076; 80202; 82271; 82550; 82803; 82962; 83036; 83605; 83735; 83880; 84100; 84443; 84478; 84484; 85014; 85018; 85025; 85610; 85730; 86706; 87040; 87070; 87077; 87086; 87106; 87107; 87186; 87205; 87340; 87449; 87633; 87641; 90937; 92507; 92526; 92610; 93005; 93308; 94002; 94003; 94640; 94660; 94667; 94668; 95831; 97110; 97116; 97163; 97167; 97530; 97535; 97802; 99251; 99285; J7030; J7040; J7050; Q9967; A4216; C1752; G0257; G0463

== ENCOUNTER → 2019-09-08 09:12 | Outpatient (CLI) | payer BC, SELFPAY ==
[2019-09-08 08:35] VITALS: BMI 25.4
[2019-09-08 09:15] LABS: Bacteria 0 SEEN /hpf (None Seen); Mucous, Urine 0 SEEN /hpf (<or=2+); Red Blood Cells-Urine 0 SEEN /hpf (0-5); White Blood Cells 0 SEEN /hpf (0-5)
[2019-09-08 12:53] LABS: Color, Urine Yellow (Yellow); Glucose, Dipstick Normal (Normal); Ketone-Dipstick Negative (Negative); Leukocyte Esterase-Dipstick Negative /ul (Negative); Nitrite-Dipstick Negative (Negative); Occult Blood-Urine Negative /ul (Negative); Protein-Dipstick Negative (Negative); Urine Bilirubin Dipstick Negative (Negative); Urine Clarity Clear (Clear); Urine Urobilinogen Normal (Normal); Urine pH 6.5 (5.0 - 8.0)
[2019-09-08 13:00] LABS: Absolute Lymphocyte Count 2.53 X10^3/uL (0.83-4.51); Absolute Neutrophil Count 3.7 X10^3/uL (2.0-7.7); Basophil# 0.09 X10^3/uL; Basophil% 1.2 % (0-1); Eosinophil# 0.54 X10^3/uL; Eosinophils% 7.1 % (0-5); Hemoglobin 10.9 g/dL (13.0-16.5); Lymphocyte # 2.53 X10^3/ul (4.0); Lymphocyte % 33.1 % (19-41); Mean Corp Hgb Conc 31.1 g/dL (32-36); Mean Corpuscular Hgb 30.7 pg (27.0-32.0); Mean Corpuscular Volume 98.6 fL (80-94); Mean Platelet Vol. 9.4 fl (6.2-12.0); Monocyte# 0.77 X10^3/uL; Monocyte% 10.1 % (0-10); NRBC Flagged by Analyzer 0 % (0-5); Neutrophil # 3.69 X10^3/uL (2.7-7.7); Neutrophil % 48.1 % (47-70); Platelet Count 278 K/mm3 (150-450); RBC Distribution Width CV 14.9 % (11.6-14.6); RBC Distribution Width SD 54.4 fl (35.1-43.9); Red Blood Count 3.55 M/mm3 (4.6-6.2); White Blood Count 7.7 K/mm3 (4.4-11.0)
[2019-09-08 13:04] LABS: Squamous Epithelial Cells - UA 0-5 SEEN /hpf (0-5)
[2019-09-08 13:19] LABS: ALB/GLOB Ratio 0.7 RATIO (0.9-2.4); AST(SGOT) 18 U/L (15-37); Alanine Aminotransfer ALT/SGPT 27 U/L (16-61); Albumin, Serum 3.3 g/dL (3.2-5.0); Alkaline Phosphatase 77 U/L (45-117); Anion Gap 5 (5-15); BUN 21 mg/dL (7-18); BUN/Creat Ratio 13.2 RATIO (10-20); Calcium,Total 9.1 mg/dL (8.5-10.1); Chloride 108 mmol/L (98-107); Creatinine, Serum 1.59 mg/dL (0.70-1.30); EST Glomerular Filtration Rate 45 mL/min (>60); Est Glom Filt Rate - Afr Amer 54 mL/min (>60); Globulin 4.6 g/dL (2.2-4.2); Glucose 83 mg/dL (74-106); Potassium 4.4 mmol/L (3.5-5.1); Protein, Total 7.9 g/dL (6.4-8.2); Sodium Level 139 mmol/L (136-145); T4 Free Direct 1.06 ng/dL (0.76-1.46); Thyroid Stim Hormone (TSH) 3.62 uIU/mL (0.358-3.74)
== END ==
PROVIDERS: PCP Internal Medicine; Referring Provider Internal Medicine; Visit Provider Internal Medicine
DX: I48.91 Unspecified atrial fibrillation (principal); I10 Essential (primary) hypertension
CPT/HCPCS: 36415; 80053; 81001; 84439; 84443; 85025

== ENCOUNTER 2019-12-30 14:52 | Emergency (ER) | payer OTHER, BC, SELFPAY ==
[2019-11-10 10:04] VITALS: BMI 25.4
[2019-12-30 14:54] VITALS: BP 149/87; PULSE 60; RESP 17; TEMP 36.7; O2SAT 94; BMI 25.1
[2019-12-30 15:10] VITALS: BP 170/120; PULSE 58; RESP 18; O2SAT 94
--- NOTE | 2019-12-30 16:02 | CT_ITS ---
STUDY: CT BRAIN WITHOUT CONTRAST REASON FOR EXAM: Male, 79 years old. INJURY/FALL RADIATION DOSAGE (If Supplied By Facility): CTDIvol = ( 60.81 ) mGy, DLP = ( 1089.89 ) mGycm TECHNIQUE: Transaxial CT imaging of the brain was performed without administration of intravenous contrast material. Individualized dose optimization techniques were used for this CT. COMPARISON: Prior study of September 01, 2013 FINDINGS: Normal soft tissue structures. Normal calvarium. There is a comminuted displaced fracture of the nasal bones. There is mild cerebral atrophy with widening of the extra-axial spaces and ventricular dilatation. There are areas of decreased attenuation within the white matter tracts of the supratentorial brain, consistent with microvascular disease changes. There is no lacunar infarct of the left basal ganglia. Normal brainstem. Normal cerebellum. There is no intracranial hemorrhage. There are no findings of an acute ischemic infarction. There is mucosal thickening and small amount of fluid in the right maxillary sinus. CT/Brain/Head without Contrast IMPRESSION: Chronic involutional changes of the brain. There is no evidence of intracranial hemorrhage or calvarial fracture. 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 Comminuted fracture of the nasal bones. Small amount of fluid and mucosal thickening in the right maxillary sinus. Electronically Signed: Mono Maxwell MD at 17:18 EDT , Service support ,
--- NOTE | 2019-12-30 16:02 | CT_ITS ---
We are attempting to reach an attending provider to discuss findings. An addendum with communication details will be sent when the communication is complete. STUDY: CT CERVICAL SPINE WITHOUT CONTRAST REASON FOR EXAM: Male, 79 years old. INJURY/FALL RADIATION DOSAGE (If Supplied By Facility): CTDIvol = ( 29.82 ) mGy, DLP = ( 581.31 ) mGycm TECHNIQUE: High resolution transaxial imaging was performed without contrast material. Sagittal and coronal images were reconstructed. Individualized dose optimization techniques were used for this CT. COMPARISON: Prior study of September 01, 2013 FINDINGS: Normal craniovertebral junction. Normal anterior atlantoaxial articulation. There is a nondisplaced transverse fracture of the odontoid base. Normal cervical lordosis. There is diffuse endplate spondylosis of the cervical spine. C2-3: Disc spacing is within normal limits. There are bilateral hypertrophic degenerative facet changes. There is no central canal stenosis or foraminal narrowing. C3-4: There is mild disc space narrowing. There are bilateral hypertrophic degenerative facet changes. There is mild foraminal narrowing on the right. There is no central canal stenosis. C4-5: There are bilateral hypertrophic degenerative facet changes. There is moderately severe bilateral foraminal narrowing. There is no central canal stenosis. There is moderate disc space narrowing. C5-6: There is severe disc space narrowing. There are bilateral hypertrophic degenerative facet changes. There is mild foraminal narrowing on the left. There is no central canal stenosis. C6-7: There are bilateral hypertrophic degenerative facet changes. There is mild disc space narrowing. There is no central canal stenosis or foraminal narrowing. There is moderate old compression deformity of C7. This is similar to the previous study of 2013. C7-T1: There is moderate disc space narrowing. The facets are within normal limits. There is mild foraminal narrowing on the left. There is no central canal stenosis. There is old moderately severe compression deformity of T4. CT/Spine Cervical without Contras IMPRESSION: 1. Nondisplaced transverse fracture of the odontoid base. 2. Multilevel degenerative changes as detailed above. 3. Old moderately severe compression deformity of C7, appearing similar to the previous study. Electronically Signed: Mono Maxwell MD at 17:28 EDT , Service support ,
--- NOTE | 2019-12-30 16:05 | ED.VIS.FALL ---
History of Present Illness Chief Complaint: Fall Informant: Patient, Significant Other Occurred: Today - about 2-3 hrs prior to eval Mechanism/Context: Same level fall Location: left anterior lower ribcage, neck Quality of Pain: Aching Current Severity: Moderate Maximum Severity: Moderate Worsened by: deep inspiration, moving head Relieved by: remaining still and breathing easy. tylenol he took earlier. Associated Symptoms: Negative for: Loss of consciousness, Amnesia Narrative: Patient was moving a skid with his earlier and she dropped her half, causing him to fall into it and bruising his left rib cage, and then after after bouncing off of it with his chest/ribs, falling to the pavement in front of him. He hit his glasses, which then cut his nose, and he sustained some minor skin tears that he bandaged himself. He complains of pain in his neck, he describes what he thinks might have been a hyperextension injury. He denies a headache. He is on no anticoagulants but takes a baby aspirin. He has no other significant injuries. There was no LOC, nausea, vomiting, abdominal pain. Tetanus Immunization: 5-10 years - Past Medical History (1) Postoperative atrial fibrillation Status: Chronic (2) Tachy-raissa syndrome Status: Chronic Comment: Noted on discharge summary from [facility] after CABG and AVR (3) Asthma Status: Chronic (4) Atherosclerosis of coronary artery of [place] heart without angina pectoris Status: Chronic (5) Dyslipidemia Status: Chronic (6) Eczema Status: Chronic (7) History of aortic stenosis Status: Chronic Comment: ROSA to LAD, reverse SVG to OM and PDA of RCA along with AVR using 25 Andrew Awan valve, per Dr. Darrion Meyer, [facility] (8) Hypertension Status: Chronic Past Medical History - Allergies and Home Meds Allergies/Adverse Reactions: Allergies atorvastatin Adverse Reaction (Verified 09/08/19 08:25) myalgias Primary Care Physician: Mayi Curtis MD [Primary Care Provider] - Surgical History: coronary bypass surgery Lives: Spouse/ Significant Other Smoking Status: Never smoker - Family History Paternal Family History: Reports: Heart Disease Review of Systems General: Denies: Chills, Fever, Sweats Eyes: Denies: Visual changes - bilaterally, Diplopia ENT: Denies: Rhinorrhea, Sore throat Cardiovascular: Reports: Chest pain. Denies: Palpitations Respiratory: Denies: Dyspnea, Cough, Dyspnea on exertion Gastrointestinal: Denies: Abdominal pain, Nausea, Vomiting, Diarrhea, Melena, Hematochezia Genitourinary: Denies: Dysuria, Hematuria, Frequency Musculoskeletal: Reports: Neck pain. Denies: Back pain, Swelling, Extremity Pain Skin: Reports: Abrasions, Wounds. Denies: Rash Neurological: Denies: Headache, Weakness, Numbness Physical Exam Vital Signs/Narrative: Vital Signs Temp Pulse Resp BP Pulse Ox 12/30/19 15:10 58 L 18 170/120 H 94 12/30/19 14:54 98.1 F 60 17 149/87 H 94 Inital Vital Signs reviewed: Yes General: Well nourished, Well developed, - - Well-appearing no acute distress, GCS 15 Head: Normocephalic, Atraumatic Eyes: Perrl, EOMI ENT: TM's clear, No hemotympanum or drainage, Nasal trauma - Mildly tender, no crepitance or deformity. Partial-thickness 1 cm laceration left nasal bridge, - - Midface stable, no other bony tenderness in the face.. Negative for: Otorrhea Neck: Spinal Tenderness - From C1-C5 area. No step-off. Cardiovascular: Regular rate, Regular rhythm, No murmurs Respiratory: No distress, CTA bilaterally - With equal breath sounds present bilaterally, Chest tenderness - Left anterior lower rib cage, all the way down to but not beyond the costal margin, where there is a contusion/abrasion. No crepitance or subcutaneous emphysema or palpable step-off. Abdomen: Soft, Nontender, Nondistended, Normal bowel sounds Back: Nontender Extremeties: Minor skin tears both thumbs/hands, nothing repairable, full range of motion all joints of all 4 extremities without pain or bony tenderness. Skin: Normal color, No rash, Trauma - See above. 1 cm partial-thickness clean appearing curved laceration to the left side of the nasal bridge, consistent with the shape of nose pad from his eyeglasses, which are not with him. Neurological: Alert, Oriented x3, Cranial nerves II-XII grossly intact, Normal Strength, Normal Sensation, Normal Gait Psychological: Normal affect, Normal Mood Diagnostic/Tx/Re-eval Impressions Brain CT 12/30/19 16:02 IMPRESSION: Chronic involutional changes of the brain. There is no evidence of intracranial hemorrhage or calvarial fracture. 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 Comminuted fracture of the nasal bones. Small amount of fluid and mucosal thickening in the right maxillary sinus. Electronically Signed: Mono Maxwell MD at 17:18 EDT , Service support , Cervical Spine CT 12/30/19 16:02 IMPRESSION: 1. Nondisplaced transverse fracture of the odontoid base. 2. Multilevel degenerative changes as detailed above. 3. Old moderately severe compression deformity of C7, appearing similar to the previous study. Electronically Signed: Mono Maxwell MD at 17:28 EDT , Service support , Ribs w/Chest X-Ray 12/30/19 16:28 IMPRESSION: RIBS: Multiple old left-sided rib fractures. No acute fracture is identified. CHEST: Bibasilar linear fibrosis and/or atelectasis, new in the interval. Status post sternotomy/cardiac valvular replacement changes. Calcified plaques of the aortic arch. Electronically Signed: Mono Maxwell MD at 16:51 EDT , Service support , 12/30/19 16:02 Brain/Head without Contrast [CT] Stat Spine Cervical without Contras [CT] Stat 12/30/19 16:28 Ribs Uni Min 3V w/PA Chest [RAD] Stat - Medical Decision Making As above, imaging shows a nondisplaced fracture of the odontoid process at the base of it. For this reason he will need to be transferred to a high level of care to have spine surgery evaluation. Initially declined analgesics, he later accepted an oral Ultram which was given. He is maintained in a c-collar. He is neurologically intact. Discussed with him and family they preferred to go to [facility] as the trauma center of choice, accepted there by Dr. Suarez. Prior to discharge, it was noted on vital signs checked that the patient's blood pressure was 220 systolic. He has not had his blood pressure medication today, so it was given prior to transfer. I feel he can be safely transferred by ground. His c-collar is secured, he understands the dangers trying to move his head and he is cooperative. ED Disposition - Plan for ED Patient: Disposition: [facility] Diagnosis: Nondisplaced odontoid fracture with type II morphology, Contusion of rib on left side, Nasal fracture, Accidental fall Referrals: Mayi Curtis MD [Primary Care Provider] -
--- NOTE | 2019-12-30 16:28 | RAD_ITS ---
STUDY: X-RAY - UNILATERAL RIBS ( LEFT ) WITH CHEST REASON FOR EXAM: Male, 79 years old. FALL, LEFT ANTERIOR MID-RIB PAIN TECHNIQUE - RIBS: 2 view(s) of the ribs. TECHNIQUE - CHEST: Single PA view of the chest. COMPARISON: Previous chest study of 07/19/2019 FINDINGS - RIBS: The bones are severely osteopenic. There are multiple old left-sided rib fractures. FINDINGS - CHEST: beet flumer leads are present. There is bibasilar linear fibrosis and/or atelectasis . There is no demonstrated pleural abnormality. The heart size is within normal limits. Status post sternotomy changes are noted. Normal mediastinum and josé miguel. Normal visualized pulmonary arteries. There are calcified plaques of the aortic arch. Normal visualized thoracic spine. Normal visualized ribs, clavicles, and shoulders. There is no demonstrated abnormality of the visualized soft tissue structures of the upper abdomen. RAD/Ribs Uni Min 3V w/PA Chest IMPRESSION: RIBS: Multiple old left-sided rib fractures. No acute fracture is identified. CHEST: Bibasilar linear fibrosis and/or atelectasis, new in the interval. Status post sternotomy/cardiac valvular replacement changes. Calcified plaques of the aortic arch. Electronically Signed: Mono Maxwell MD at 16:51 EDT , Service support ,
[2019-12-30] MEDS: traMADol 50 MG Tablet PO (16:58)
[2019-12-30 18:27] VITALS: PULSE 66; RESP 16; O2SAT 94
[2019-12-30 19:41] VITALS: BP 239/97; PULSE 67; RESP 22; O2SAT 94
[2019-12-30] MEDS: Metoprolol Tartrate 25 MG Tablet PO (19:49)
[2019-12-30 20:12] VITALS: BP 208/86; PULSE 62; RESP 16; O2SAT 94
== END 2019-12-30 20:26 | disposition short-term general hospital (02) ==
PROVIDERS: Emergency Provider Emergency Medicine; PCP Internal Medicine
DX: S12.121A Other nondisplaced dens fracture, initial encounter for closed fracture (principal); S02.2XXA Fracture of nasal bones, initial encounter for closed fracture; S20.212A Contusion of left front wall of thorax, initial encounter; W18.39XA Other fall on same level, initial encounter; Y93.89 Activity, other specified; Y92.9 Unspecified place or not applicable; I25.10 Atherosclerotic heart disease of native coronary artery without angina pectoris; I49.5 Sick sinus syndrome; I10 Essential (primary) hypertension; E78.5 Hyperlipidemia, unspecified; J45.909 Unspecified asthma, uncomplicated; Z95.1 Presence of aortocoronary bypass graft; Z79.82 Long term (current) use of aspirin; Z86.73 Personal history of transient ischemic attack (TIA), and cerebral infarction without residual deficits
CPT/HCPCS: 70450; 71101; 72125; 99284

== ENCOUNTER 2020-05-03 18:13 | Emergency (ER) | payer OTHER, SELFPAY ==
[2020-02-25 10:39] VITALS: BMI 23.8
[2020-05-03 18:15] VITALS: BP 191/70; PULSE 54; RESP 16; TEMP 36.2; O2SAT 94; BMI 24.7
--- NOTE | 2020-05-03 18:20 | ED.RN ---
PT'S PERSONAL C COLLAR WAS APPLIED IN TRIAGE.
--- NOTE | 2020-05-03 19:19 | RAD_ITS ---
HISTORY: LEFT FOOT PAIN AFTER BEING IN AN ELEVATOR THAT DROPPED APPROXIMATELY 10 FEET. Technique: Left foot AP, lateral, and oblique radiographs Comparison: None available Findings: Comminuted calcaneal fracture. Some first metatarsal phalangeal joint arthritis. Some soft tissue swelling. RAD/Foot min 3 Views IMPRESSION: Comminuted calcaneal fracture. at 2038 Reported and signed by: Barry Wesley MD Electronically Signed: Barry Wesley MD at 20:37 EDT Tel , Service support ,
--- NOTE | 2020-05-03 19:20 | CT_ITS ---
HISTORY: ELEVATOR DROPED 10 FT. PAIN SINCE. HX OF C SPINE FX 4 MONTHS AGO TECHNIQUE: Helically acquired images were obtained of the cervical spine without contrast. 2D reformatted images were reviewed. A radiation dose optimization technique was used for this scan. COMPARISON: December 30, 2019 FINDINGS: # of images incl. paperwork: 319 Due to thoracic kyphosis the cervical spine is extended forward. Vertebral body height is fairly well-preserved. Odontoid and anterior arch of C1 arthritis is similar. Degenerative malalignment is present. Disc degenerative malalignment is due to degenerative disc disease. Degenerative disc disease is greatest at theC5-C6 and C6-C7 levels. There is partial fusion across the disc space at those levels.. This disease is manifested by loss of disc height, endplate sclerosis, and anterior and posterior enthesophytes. Facets are well aligned with arthropathy. Some of the facet joints have fused. Previous median sternotomy with sternal wires. Severe calcific plaque within the thoracic aorta and into the common carotid and carotid bulbs. Prevertebral and paraspinal soft tissues are normal. No bones are fractured. Visualized portions of the mastoid air cells are free of disease. CT/Spine Cervical without Contras IMPRESSION: Multilevel degenerative disc disease without acute fracture or traumatic subluxation. Individualized dose optimization techniques were used for this CT. at 2151 Reported and signed by: Barry Wesley MD Electronically Signed: Barry Wesley MD at 21:50 EDT Tel , Service support ,
--- NOTE | 2020-05-03 19:22 | ED.VIS.GEN ---
History of Present Illness Chief Complaint: Lower Extremity Injury Informant: Patient Narrative: Patient is a 80-year-old male who presents to the emergency department after he was in an elevator that fell 10 feet. He states that he was at a job site for work on the second story. He stepped into the elevator when something gave out and it fell to the ground. He is complaining of bilateral ankle pain and left foot pain. He is also complaining of low back pain. He did have a recent neck fracture this past summer which did not require surgery. He is no longer in a cervical collar but did require this for 2 months. He states he does have some chronic pain but does not feel he injured it any further in the fall today. Denies hitting his head. He is on aspirin but otherwise no anticoagulation. He is currently denying any chest pain or shortness of breath. No significant abdominal pain except with radiating around from his back. He was not able to ambulate since the event. He did take Tylenol after the fall. Did not give him any significant relief. He currently rates the back pain as a 3 out of 10 and the ankle pain is 5 out of 10 bilaterally. He denies any loss of sensation in any of his extremities. No loss of muscle strength except for the pain. Past Medical History - Allergies and Home Meds Allergies/Adverse Reactions: Allergies atorvastatin Adverse Reaction (Verified 05/03/20 18:15) myalgias Primary Care Physician: Mayi Curtis MD [Primary Care Provider] - Surgical History: coronary bypass surgery Smoking Status: Never smoker - Family History Paternal Family History: Reports: Heart Disease Review of Systems All systems negative except as indicated General: Denies: Chills, Fever, Sweats Eyes: Denies: Visual changes - bilaterally, Diplopia ENT: Denies: Rhinorrhea, Sore throat Cardiovascular: Denies: Chest pain, Palpitations Respiratory: Denies: Dyspnea, Cough, Dyspnea on exertion Gastrointestinal: Denies: Abdominal pain, Nausea, Vomiting Genitourinary: Denies: Dysuria, Hematuria, Frequency Musculoskeletal: Reports: Back pain, Swelling - Ankles bilaterally, Extremity Pain Skin: Denies: Rash, Wounds Neurological: Denies: Headache, Weakness, Parasthesia, Numbness Physical Exam Vital Signs/Narrative: Vital Signs Temp Pulse Resp BP Pulse Ox 05/03/20 18:15 97.1 F L 54 L 16 191/70 H 94 Inital Vital Signs reviewed: Yes General: Well nourished, Well developed, No Acute Distress Head: Normocephalic, Atraumatic Eyes: Perrl, EOMI ENT: Moist mucous membranes, No rhinorrhea Neck: Nontender, - - In cervical collar Cardiovascular: Regular rate, Regular rhythm, No murmurs Respiratory: No distress, CTA bilaterally, Chest nontender Abdomen: Soft, Nontender, Nondistended, Normal bowel sounds Back: Nontender, Normal Inspection. Negative for: Spinal tenderness - No step-off sign. Extremities: Tenderness - Ankles bilaterally. Neurovascularly intact. Some pain over the dorsal aspect of left foot., - - Skin tear to right elbow. Out of 5 muscle strength in all 4 extremities. Skin: Normal color, No rash Neurological: Alert, Oriented x3, Cranial nerves II-XII grossly intact, Normal Strength, Normal Sensation Psychological: Normal affect, Normal Mood Diagnostic/Tx/Re-eval - Medical Decision Making Patient presents to the emergency department after a fall approximately 10 feet. His complaint of bilateral ankle pain and low back pain. Will obtain trauma scans. Upon arrival to the emerge department vital signs within normal limits. He is in no acute distress. Will give morphine for symptomatic treatment. Patient's trauma scans were significant for bilateral calcaneus fractures. There is also a right lateral malleolus fracture. I did call discussed the case with the on-call orthopedic surgeon as well as manager creative services. They recommended transfer to a trauma facility. The rest of his lab work and trauma scan did not reveal any significant acute abnormality. He did have previous compression fractures in the thoracic spine. Patient cervical collar is cleared. We will plan on transfer to [facility] as this is patient's preference. Patient signed out due to end of shift. He otherwise has been stable throughout ED stay. ED Disposition - Plan for ED Patient: Disposition: [facility] Diagnosis: Bilateral calcaneal fractures, Fractured lateral malleolus Referrals: Mayi Curtis MD [Primary Care Provider] -
[2020-05-03] MEDS: Morphine 4 MG/ML Syringe IV (19:30)
--- NOTE | 2020-05-03 19:45 | RAD_ITS ---
HISTORY: LEFT ANKLE PAIN AFTER BEING IN AN ELEVATOR THAT DROPPED APPROXIMATELY 10 FEET. COMPARISON: None FINDINGS: # of images incl. paperwork: 3 XR Ankle Min 3 Views : Comminuted fracture is present within the calcaneus. The calcaneal fracture appears to spread to the subtalar joint as well as the calcaneocuboid joint. Decreased bone mineral density. Tarsal arthritis. The ankle mortise is preserved. No tibia or fibular fractures are perceived. Soft tissue swelling is present about the ankle, greater laterally than medially. RAD/Ankle min 3 Views IMPRESSION: Comminuted calcaneus fracture. at 2009 Reported and signed by: Barry Wesley MD Electronically Signed: Barry Wesley MD at 20:08 EDT Tel , Service support ,
[2020-05-03 19:48] LABS: Absolute Lymphocyte Count 1.67 X10^3/uL (0.83-4.51); Absolute Neutrophil Count 9.2 X10^3/uL (2.0-7.7); Basophil# 0.07 X10^3/uL; Basophil% 0.6 % (0-1); Eosinophil# 0.34 X10^3/uL; Eosinophils% 2.8 % (0-5); Hematocrit 36.8 % (40-54); Hemoglobin 11.8 g/dL (13.0-16.5); Lymphocyte # 1.67 X10^3/ul (4.0); Lymphocyte % 13.8 % (19-41); Mean Corp Hgb Conc 32.1 g/dL (32-36); Mean Corpuscular Hgb 31.7 pg (27.0-32.0); Mean Corpuscular Volume 98.9 fL (80-94); Mean Platelet Vol. 9.1 fl (6.2-12.0); Monocyte# 0.76 X10^3/uL; Monocyte% 6.3 % (0-10); NRBC Flagged by Analyzer 0 % (0-5); Neutrophil # 9.19 X10^3/uL (2.7-7.7); Neutrophil % 75.8 % (47-70); Platelet Count 213 K/mm3 (150-450); RBC Distribution Width CV 13.5 % (11.6-14.6); RBC Distribution Width SD 49.4 fl (35.1-43.9); Red Blood Count 3.72 M/mm3 (4.6-6.2); White Blood Count 12.1 K/mm3 (4.4-11.0)
--- NOTE | 2020-05-03 19:57 | RAD_ITS ---
HISTORY: RIGHT ANKLE PAIN AFTER BEING IN AN ELEVATOR THAT DROPPED APPROXIMATELY 10 FEET. COMPARISON: None FINDINGS: # of images incl. paperwork: 6 XR Ankle Min 3 Views : The patient has previous tibia and fibula fractures which have healed with malalignment. Disuse osteopenia. An acute fracture is present through the lateral malleolus. Arthritis is present at the ankle and within the foot The ankle mortise is intact. Soft tissue swelling is is present about the ankle, greater laterally than medially. RAD/Ankle min 3 Views IMPRESSION: Acute lateral malleolus fracture with soft tissue swelling to the Right ankle. Osteoporosis. Osteoarthritis. Old healed fractures to the tibia and fibula at 2020 Reported and signed by: Barry Wesley MD Electronically Signed: Barry Wesley MD at 20:19 EDT Tel , Service support ,
--- NOTE | 2020-05-03 19:58 | RAD_ITS ---
HISTORY: RIGHT FOOT PAIN AFTER BEING IN AN ELEVATOR THAT DROPPED APPROXIMATELY 10 FEET. Technique: Right foot AP, lateral, and oblique radiographs Comparison: None available Findings: A calcaneal fracture may be present. Osteoporosis. Arthritis at the first metatarsophalangeal joint. Bony alignment is normal. Flexion at the interphalangeal joints. RAD/Foot min 3 Views IMPRESSION: Osteoporosis. Possible calcaneal fracture. Consider a CT scan of the calcaneus for a greater specificity and negative predictive value at 2037 Reported and signed by: Barry Wesley MD Electronically Signed: Barry Wesley MD at 20:36 EDT Tel , Service support ,
[2020-05-03 20:03] LABS: Anion Gap 5 (5-15); BUN 38 mg/dL (7-18); BUN/Creat Ratio 17.5 RATIO (10-20); Calcium,Total 8.7 mg/dL (8.5-10.1); Chloride 109 mmol/L (98-107); Creatinine, Serum 2.17 mg/dL (0.70-1.30); EST Glomerular Filtration Rate 31 mL/min (>60); Est Glom Filt Rate - Afr Amer 38 mL/min (>60); Estimated Creatinine Clearance 25.81 ml/min; Glucose 109 mg/dL (74-106); Potassium 4.6 mmol/L (3.5-5.1); Sodium Level 139 mmol/L (136-145)
--- NOTE | 2020-05-03 20:08 | CT_ITS ---
STUDY: CT CHEST WITHOUT CONTRAST REASON FOR EXAM: Male, 80 years old. ELEVATOR DROPPED 10 FT. PAIN SINCE. HX OF C SPINE FX 4 MONTHS AGO RADIATION DOSAGE (If Supplied By Facility): CTDIvol = ( 15.16 ) mGy, DLP = ( 1471.40 ) mGycm TECHNIQUE: Transaxial imaging was performed without the administration of intravenous contrast material. Individualized dose optimization techniques were used for this CT. COMPARISON: None. FINDINGS: Diffuse cystic emphysematous changes are present as well as hyperinflation. Mild interstitial scarring is also scattered throughout both lungs. No consolidation or pleural effusion or lung nodules.. There is no demonstrated pleural abnormality. Sternal cerclage wires and vascular clips are present from a prior sternotomy and coronary artery bypass graft procedure (CABG). Normal heart size. Normal mediastinum. Several calcified hilar nodes are present. Normal unenhanced pulmonary arteries. Normal aorta arch and descending thoracic aorta. There are multi-level degenerative changes of the thoracic spine. The bony structures are diffusely demineralized. There are chronic compression deformities from T2 down to T8 as well as T12. Significant loss of height is demonstrated at T5, T6, T7. The thoracic kyphosis is slightly exaggerated. There is no demonstrated abnormality of the visualized upper abdomen. CT/Chest without Contrast IMPRESSION: 1. COPD and emphysematous changes 2. The bony structures are diffusely demineralized. There are chronic compression deformities from T2 down to T8 as well as T12. Significant loss of height is demonstrated at T5, T6, T7. The thoracic kyphosis is slightly exaggerated. Electronically Signed: Dhruv Clifton MD at 21:32 EDT , Service support ,
--- NOTE | 2020-05-03 20:08 | CT_ITS ---
STUDY: CT ABDOMEN AND PELVIS WITHOUT CONTRAST REASON FOR EXAM: Male, 80 years old. FALL RADIATION DOSAGE (If Supplied By Facility): CTDIvol = ( 15.16 ) mGy, DLP = ( 1471.40 ) mGycm TECHNIQUE: Transaxial images were obtained from the dome of the diaphragm to the symphysis pubis without oral contrast, and without intravenous contrast. Sagittal and coronal images were reconstructed. Individualized dose optimization techniques were used for this CT. COMPARISON: CT of the chest dated May 03, 2020. FINDINGS: There are chronic interstitial fibrotic changes of the lung bases. CABG changes are present. Several small calcified nodules are present in the liver which is otherwise. There are multiple gallstones. There are multiple benign calcified granulomata of the spleen. Normal pancreas. Normal bilateral adrenal glands. Normal right kidney. Normal left kidney. There is a small hiatal hernia. Normal small intestine. There are multiple colonic diverticula consistent with diverticulosis. The appendix is visualized and appears normal. There is diffuse atherosclerotic calcification of the abdominal aorta, without a demonstrated aneurysm. Normal inferior vena cava. Normal retroperitoneum. Normal urinary bladder. Small bilateral fat-containing inguinal hernias noted. Prostate calcifications are present. The apex of the prostate gland herniates into the base of the bladder. There are diffuse degenerative changes of the visualized lumbar spine and pelvis and hips.. Chronic T12 fracture deformity with 40-50% loss of height noted. No visualized acute fractures. CT/Abdomen/Pelvis without Cont IMPRESSION: 1. Colonic diverticulosis 2. Gallstones Electronically Signed: Dhruv Clifton MD at 22:55 EDT , Service support ,
--- NOTE | 2020-05-03 20:15 | CT_ITS ---
HISTORY: ELEVATOR DROPED 10 FT. PAIN SINCE. HX OF C SPINE FX 4 MONTHS AGO Technique:CT Head or Brain W/O Contrast Injection sagittal and coronal 2-D reformats Number of Images including paperwork:266 Comparison: None available. Findings: Periventricular deep and subcortical white matter disease is present. Paranasal sinuses are clear. The brain is atrophic. Calcific ASCVD involves intracranial arteries. No acute intracranial edema or hemorrhage. No acute abnormality of orbits. Middle ear cavities and mastoid air cells are well aerated. Skull is normal. CT/Brain/Head without Contrast IMPRESSION: No acute intracranial abnormality. Chronic changes as above. ASPECT 10. Individualized dose optimization techniques were used for this CT. at 2117 Reported and signed by: Barry Wesley MD Electronically Signed: Barry Wesley MD at 21:16 EDT Tel , Service support ,
--- NOTE | 2020-05-03 20:46 | ED.RN ---
[employer] is where the pt works, not a company in our drug test database. will speak with pt to get contact information for workplace to determine drug test requirements.
[2020-05-03 21:36] LABS: Bacteria 0 SEEN /hpf (None Seen); Mucous, Urine 0 SEEN /hpf (<or=2+); Red Blood Cells-Urine 0 SEEN /hpf (0-5); Squamous Epithelial Cells - UA 0 SEEN /hpf (0-5); White Blood Cells 0 SEEN /hpf (0-5)
[2020-05-03 21:40] LABS: Color, Urine Yellow (Yellow); Glucose, Dipstick Normal (Normal); Ketone-Dipstick Negative (Negative); Leukocyte Esterase-Dipstick 100 /ul (Negative); Nitrite-Dipstick Negative (Negative); Occult Blood-Urine Negative /ul (Negative); Protein-Dipstick 30 mg/dl (Negative); Specific Gravity, Urine 1.015 (1.002-1.030); Urine Bilirubin Dipstick Negative (Negative); Urine Clarity Clear (Clear); Urine Urobilinogen Normal (Normal)
[2020-05-03 21:46] VITALS: BP 121/70; PULSE 53; RESP 16; O2SAT 92
--- NOTE | 2020-05-03 22:17 | CT_ITS ---
STUDY: CT LEFT ANKLE WITHOUT CONTRAST REASON FOR EXAM: Male, 80 years old. LT CALCANEAL FX ON XRAY. Pt was in elevator that dropped 10 feet RADIATION DOSAGE (If Supplied By Facility): CTDIvol = ( 15.35 ) mGy, DLP = ( 392.14 ) mGycm TECHNIQUE: Thin section transaxial imaging of the ankle was obtained, with sagittal and coronal reconstructed images. Individualized dose optimization techniques were used for this CT. COMPARISON: Ankle x-ray dated May 03, 2019 FINDINGS: Extensively comminuted fracture of the calcaneus from anterior to posterior is present with multiple mildly displaced fragments. Preservation of the talocalcaneal articulation. Diffuse soft tissue edema is present in the plantar aspect of the foot and around the ankle joint. A tiny corner chip fracture is present at the far lateral margin of the body of the talus. No additional acute fractures are seen. Normal visualized distal tibia. Mild cortical chronic irregularity is present at the undersurface of the lateral malleolus which could be related to prior trauma or secondary degenerative changes. Normal tibiotalar articulation and talar dome. The bony structures are demineralized. Normal navicular and cuboid tarsal bones. Normal subtalar, talonavicular and calcaneocuboid articulations. Normal navicular-cuneiform, cuneiform tarsal bones and intercuneiform articulations. Normal tarsometatarsal articulations and visualized metatarsi. CT/Extremity Lower without Contra IMPRESSION: 1. Comminuted fracture of the calcaneus. 2. Tiny chip fracture at the far lateral aspect of the talus. Electronically Signed: Dhruv Clifton MD at 23:46 EDT , Service support ,
--- NOTE | 2020-05-04 00:15 | CT_ITS ---
HISTORY: Elevator fell 10 Fleet. Concern for calcaneal fracture on x-ray. Technique: Contiguous helical images were obtained through the right foot and ankle. 2-D reformats. 337 images. Comparison x-rays of the right foot are from less than 5 hours earlier. Findings: Comminuted calcaneal fracture is present. There is loss of the normal angulation of the calcaneus with flattening of the plantar arch because of the comminuted fractures. Fractures extend to the subtalar joint is well is to the calcaneal cuboid joint. Arthritis is present within the foot. Extension at the metatarsophalangeal joints. Flexion at the second through fifth interphalangeal joints. Bone mineral density is diminished. There is a fracture to the trigonal process of the posterior aspect of the talus There is a no [place] fracture fragment possibly from the lateral aspect of the talus possibly related to the tibiofibular ligament. A lateral malleolus fracture is also present. Soft tissue swelling is present about the foot and the ankle and the lateral malleolus. CT/Extremity Lower without Contra IMPRESSION: Comminuted calcaneal fracture with collapse of the arch due to the collapse of the calcaneus. Avulsion fracture from the lateral aspect of the talus. Avulsion from the trigonal process of the talus. Lateral malleolus fracture. Ankle effusion. Soft tissue swelling greatest about the lateral malleolus. Individualized dose optimization techniques were used for this CT. at 0101 Reported and signed by: Barry Wesley MD Electronically Signed: Barry Wesley MD at 1:00 EDT Tel , Service support ,
[2020-05-04 00:18] VITALS: BP 132/72; PULSE 72; RESP 16; O2SAT 94
[2020-05-04] MEDS: Ondansetron 4 MG/2 ML Vial IV (02:01)
[2020-05-04] MEDS: Morphine 4 MG/ML Syringe IV (02:02)
[2020-05-04 02:05] VITALS: BP 132/72; PULSE 72; RESP 16; O2SAT 94
== END 2020-05-04 02:05 | disposition short-term general hospital (02) ==
PROVIDERS: Emergency Provider Emergency Medicine; PCP Internal Medicine
DX: S92.001A Unspecified fracture of right calcaneus, initial encounter for closed fracture (principal); S92.002A Unspecified fracture of left calcaneus, initial encounter for closed fracture; S82.61XA Displaced fracture of lateral malleolus of right fibula, initial encounter for closed fracture; G89.29 Other chronic pain; W19.XXXA Unspecified fall, initial encounter; Z79.82 Long term (current) use of aspirin
CPT/HCPCS: 70450; 71250; 72125; 73610; 73630; 73700; 74176; 80048; 81001; 85025; 96374; 96375; 96376; 99284; A4216; J2405

== ENCOUNTER 2020-05-15 11:48 | Inpatient (IN) | payer OTHER, SELFPAY ==
[2020-05-15] VITALS (25 sets, daily range): BP systolic 75–152; BP diastolic 45–69; PULSE 63–78; RESP 12–31; TEMP 36.1–37.7; O2SAT 86–97; BMI 24.4; BMI 24.5
--- NOTE | 2020-05-15 11:59 | EKG12_ITS ---
Test Reason : SOB Blood Pressure : / mmHG Vent. Rate : 070 BPM Atrial Rate : 070 BPM P-R Int : 206 ms QRS Dur : 100 ms QT Int : 426 ms P-R-T Axes : 065 063 049 degrees QTc Int : 460 ms Normal sinus rhythm Nonspecific ST and T wave abnormality Prolonged QT Abnormal ECG Confirmed by YECENIA VIDAL, SUPRIYA ([id number]), web content editor DHARMESH KRAMER ([id number]) on 05/26/2020 9:32:51 A M Referred By: MEHNAZ Confirmed By:JAD KEENE MD
--- NOTE | 2020-05-15 11:59 | RAD_ITS ---
STUDY: X-RAY CHEST REASON FOR EXAM: Male, 80 years old. SOB, RECENT PE TECHNIQUE: Single AP portable view of the chest. COMPARISON: 12/30/2019 FINDINGS: Status post median sternotomy. Alveolar opacity in the perihilar right lung consistent with alveolar pulmonary edema. Reticular interstitial opacities of lungs consistent with interstitial pulmonary edema. There is no demonstrated pleural abnormality. There is moderate cardiac enlargement. Normal mediastinum and josé miguel. There is prominence of the pulmonary hilar arteries and peripheral pulmonary arteries, consistent with congestive heart failure (CHF). Normal visualized aortic arch and descending thoracic aorta. Normal visualized thoracic spine. Normal visualized ribs, clavicles, and shoulders. There is no demonstrated abnormality of the visualized soft tissue structures of the upper abdomen. RAD/Chest 1 View (Portable) IMPRESSION: Severe congestive heart failure. Electronically Signed: Moe Elam MD at 12:54 EDT Tel , Service support ,
[2020-05-15 12:18] LABS: Absolute Lymphocyte Count 0.45 X10^3/uL (0.83-4.51); Absolute Neutrophil Count 18.7 X10^3/uL (2.0-7.7); Basophil# 0.04 X10^3/uL; Basophil% 0.2 % (0-1); Differential Indicated SCAN CRITERIA MET; Eosinophil# 0.14 X10^3/uL; Eosinophils% 0.7 % (0-5); Hematocrit 27.1 % (40-54); Hemoglobin 8.6 g/dL (13.0-16.5); Lymphocyte # 0.45 X10^3/ul (4.0); Lymphocyte % 2.3 % (19-41); Mean Corp Hgb Conc 31.7 g/dL (32-36); Mean Corpuscular Hgb 31.7 pg (27.0-32.0); Monocyte# 0.23 X10^3/uL; Monocyte% 1.2 % (0-10); NRBC Flagged by Analyzer 0.1 % (0-5); Neutrophil # 18.66 X10^3/uL (2.7-7.7); Neutrophil % 93.6 % (47-70); POSITIVE DIFFERENTIAL YES; Platelet Count 319 K/mm3 (150-450); RBC Distribution Width CV 14.6 % (11.6-14.6); RBC Distribution Width SD 52.7 fl (35.1-43.9); Red Blood Count 2.71 M/mm3 (4.6-6.2); White Blood Count 19.9 K/mm3 (4.4-11.0)
[2020-05-15 12:22] LABS: International Normalized Ratio 2.6
[2020-05-15 12:23] LABS: Partial Thromboplast Time 43.1 Seconds (24.1-36.2)
[2020-05-15 12:30] LABS: ALB/GLOB Ratio 0.6 RATIO (0.9-2.4); AST(SGOT) 56 U/L (15-37); Alanine Aminotransfer ALT/SGPT 92 U/L (16-61); Albumin, Serum 2.3 g/dL (3.2-5.0); Alkaline Phosphatase 85 U/L (45-117); Anion Gap 7 (5-15); BUN 38 mg/dL (7-18); BUN/Creat Ratio 23.9 RATIO (10-20); Calcium,Total 7.8 mg/dL (8.5-10.1); Chloride 102 mmol/L (98-107); Creatinine, Serum 1.59 mg/dL (0.70-1.30); EST Glomerular Filtration Rate 45 mL/min (>60); Est Glom Filt Rate - Afr Amer 54 mL/min (>60); Estimated Creatinine Clearance 37.67 ml/min; Globulin 4.1 g/dL (2.2-4.2); Glucose 123 mg/dL (74-106); Magnesium 2.5 mg/dL (1.6-2.6); Potassium 4.1 mmol/L (3.5-5.1); Protein, Total 6.4 g/dL (6.4-8.2); Sodium Level 134 mmol/L (136-145)
[2020-05-15 12:39] LABS: Platelet Estimate ADEQUATE (ADEQ)
[2020-05-15 12:40] LABS: Hypochromasia 1+; Schistocytes RARE
[2020-05-15 12:41] LABS: Blood Gas Specimen Type VEN; O2 Delivery Device BiPAP; SITE R Brach; VBG BASE EXCESS -2 mmol/L (-1.0-3.5); VBG Bicarbonate 22 mmol/L (22-26); VBG PO2 26 mmHg (25-40); VBG SO2 51 % (50-70); VBG TCO2 23 mmol/L (23-33); VBG pH 7.45 (7.32-7.42)
[2020-05-15 12:45] LABS: Lactic Acid 2.5 mmol/L (0.4-1.9)
[2020-05-15 12:50] LABS: Mucous, Urine 0 SEEN /hpf (<or=2+); Red Blood Cells-Urine 0 SEEN /hpf (0-5); White Blood Cells 0 SEEN /hpf (0-5)
[2020-05-15 12:52] LABS: Color, Urine Yellow (Yellow); Glucose, Dipstick Normal (Normal); Ketone-Dipstick Negative (Negative); Leukocyte Esterase-Dipstick 25 /ul (Negative); Nitrite-Dipstick Negative (Negative); Occult Blood-Urine 25 /ul (Negative); Protein-Dipstick 30 mg/dl (Negative); Urine Bilirubin Dipstick Negative (Negative); Urine Clarity Sl. Cloudy (Clear); Urine Urobilinogen 1 mg/dl (Normal)
[2020-05-15 13:00] LABS: Bacteria 1+ /hpf (None Seen); Squamous Epithelial Cells - UA 0-5 SEEN /hpf (0-5)
[2020-05-15] MEDS: Furosemide 100 MG/10 ML Vial 60 MG IV (13:44)
--- NOTE | 2020-05-15 15:01 | ED.DCSUM_ITS ---
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 Patient was discharged home Saturday evening and was doing well and Saturday. His legs are in splints and there is no immediate plan for ORIF. Last night around 20 to 30 hours he was noted to be significantly short of breath. He was able to sleep some laying down but by this morning he was not doing well. His eventually called EMS who found him in respiratory distress with a pulse ox in the 50s. He demonstrated mottling. They placed him on CPAP on the way to the hospital. No reported fevers. Patient was most recently admitted to [facility] following a fall down an elevator shaft in which she sustained bilateral calcaneus fractures. His hospitalization course was complicated by pulmonary embolism he was started on Eliquis he was also started on tapering prednisone. Is unclear of why he was on the prednisone but he could be due to his COPD. He also has a history of having had a CABG x3 in 2018 as well as bioprosthetic aortic valve replacement the same time. He has been following with Dr. Lyles from cardiology. He also has had in the past 4 years traumatic bilateral pneumothoraces and rib fractures from blunt chest wall trauma from a pipe as well as a C2 dens fracture this year and has since been cleared from his collar. His most recent echocardiogram dated 07/03/2019 is as follows: Moderate concentric left ventricular hypertrophy. The estimated ejection fraction is 65 %. Stage 1 diastolic dysfunction. Mildly dilated right ventricle. The left atrium is moderately enlarged. The right atrium is moderately enlarged. Trivial mitral valve insufficiency. Mild (1+) tricuspid valve insufficiency. Right ventricular systolic pressure estimated to be 30 mmHg. Stable appearing and normal functioning bioprosthetic aortic valve apparatus. Compared to MARY report dated 02/12/2018, [place] aortic valve has been replaced with a bioprosthetic aortic valve. 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 (5) Dyslipidemia Status: Chronic (6) History of aortic stenosis Status: Chronic Comment: ROSA to LAD, reverse SVG to OM and PDA of RCA along with AVR using 25 Andrew Awan valve, per Dr. Darrion Meyer, [facility] [place] (7) Hypertension Status: Chronic (8) Tachy-raissa syndrome Status: Chronic Past Medical History - Allergies and Home Meds Allergies/Adverse Reactions: Allergies atorvastatin Adverse Reaction (Verified 05/03/20 18:15) myalgias Primary Care Physician: Mayi Curtis MD [Primary Care Provider] - Prior records reviewed: Yes Surgical History: coronary bypass surgery, - - Bioprosthetic aortic valve replacement Smoking Status: Former smoker - Family History Paternal Family History: Reports: Heart Disease Review of Systems General: Denies: Chills, Fever, Sweats Eyes: Denies: Visual changes - bilaterally, Diplopia ENT: Denies: Rhinorrhea, Sore throat Cardiovascular: Denies: Chest pain, Palpitations Respiratory: Reports: Dyspnea, Cough, Dyspnea on exertion Gastrointestinal: Denies: Abdominal pain, Nausea, Vomiting, Diarrhea, Melena, Hematochezia Genitourinary: Denies: Dysuria, Hematuria, Frequency Musculoskeletal: Reports: Extremity Pain. Denies: Back pain Skin: Denies: Rash, Wounds Neurological: Denies: Headache, Weakness, Numbness Physical Exam Vital Signs/Narrative: Vital Signs Temp Pulse Resp BP Pulse Ox 05/15/20 14:00 97.0 F L 65 24 H 115/50 L 96 05/15/20 13:00 97.9 F 68 20 H 120/56 L 92 05/15/20 12:54 97.9 F 68 20 H 120/56 L 92 05/15/20 12:50 70 28 H 93 05/15/20 11:55 70 30 H 96 05/15/20 11:54 98.5 F 70 22 H 122/69 H 96 05/15/20 11:49 98.5 F 69 26 H 122/69 H 97 Inital Vital Signs reviewed: Yes General: Well nourished, Well developed, No Acute Distress Head: Normocephalic, Atraumatic Eyes: Perrl, EOMI ENT: Moist mucous membranes, No rhinorrhea Neck: Supple, Nontender Cardiovascular: Regular rate, Regular rhythm, No murmurs Respiratory: Chest nontender, Rales, Decreased Air Movement, - - Patient is in respiratory failure 2-3 word sentences being transitioned from CPAP to BiPAP Abdomen: Soft, Nontender, Nondistended, Normal bowel sounds Back: Nontender, Normal Inspection Extremities: No edema, - - Bilateral lower extremity posterior splints Skin: Normal color, No rash Neurological: Alert, Oriented x3, Cranial nerves II-XII grossly intact, Normal Strength, Normal Sensation Psychological: Normal affect, Normal Mood Diagnostic/Tx/Re-eval Clinical Impression(s) from Imaging Studies Chest X-Ray 05/15/20 11:59 IMPRESSION: Severe congestive heart failure. Electronically Signed: Moe Elam MD at 12:54 EDT Tel , Service support , Laboratory Last Values WBC 19.9 K/mm3 (4.4-11.0) H 05/15/20 11:55 RBC 2.71 M/mm3 (4.6-6.2) L 05/15/20 11:55 Hgb 8.6 g/dL (13.0-16.5) L 05/15/20 11:55 Hct 27.1 % (40-54) L 05/15/20 11:55 MCV 100.0 fL (80-94) H 05/15/20 11:55 MCH 31.7 pg (27.0-32.0) 05/15/20 11:55 MCHC 31.7 g/dL (32-36) L 05/15/20 11:55 RDW Std Deviation 52.7 fl (35.1-43.9) H 05/15/20 11:55 RDW Coeff of Jeanne 14.6 % (11.6-14.6) 05/15/20 11:55 Plt Count 319 K/mm3 (150-450) 05/15/20 11:55 MPV 9.0 fl (6.2-12.0) 05/15/20 11:55 Immature Gran % (Auto) 2.000 % (0.0-0.9) H 05/15/20 11:55 Neut % (Auto) 93.6 % (47-70) H 05/15/20 11:55 Lymph % (Auto) 2.3 % (19-41) L 05/15/20 11:55 Wythe % (Auto) 1.2 % (0-10) 05/15/20 11:55 Eos % (Auto) 0.7 % (0-5) 05/15/20 11:55 Baso % (Auto) 0.2 % (0-1) 05/15/20 11:55 Absolute Neuts (auto) 18.7 X10^3/uL (2.0-7.7) H 05/15/20 11:55 Absolute Lymphs (auto) 0.45 X10^3/uL (0.83-4.51) L 05/15/20 11:55 Nucleated RBC % 0.1 % (0-5) 05/15/20 11:55 Platelet Estimate ADEQUATE (ADEQ) 05/15/20 11:55 Hypochromasia 1+ 05/15/20 11:55 Schistocytes RARE 05/15/20 11:55 PT 27.0 SECONDS (11.7-14.9) H 05/15/20 11:55 INR 2.6 05/15/20 11:55 APTT 43.1 Seconds (24.1-36.2) H 05/15/20 11:55 Specimen Type MADINA 05/15/20 12:32 Sample Site R Brach 05/15/20 12:32 VBG pH 7.45 (7.32-7.42) H 05/15/20 12:32 VBG pO2 26 mmHg (25-40) 05/15/20 12:32 VBG HCO3 22 mmol/L (22-26) 05/15/20 12:32 VBG O2 Sat (Calc) 51 % (50-70) 05/15/20 12:32 VBG Base Excess -2 mmol/L (-1.0-3.5) L 05/15/20 12:32 POC Mix VBG pCO2 Pt Tmp 32.0 mmHg (41-51) L 05/15/20 12:32 O2 Delivery Device BiPAP 05/15/20 12:32 Sodium 134 mmol/L (136-145) L 05/15/20 11:55 Potassium 4.1 mmol/L (3.5-5.1) 05/15/20 11:55 Chloride 102 mmol/L (98-107) 05/15/20 11:55 Carbon Dioxide 25.0 mmol/L (21.0-32.0) 05/15/20 11:55 POC Venous Total CO2 23 mmol/L (23-33) 05/15/20 12:32 Anion Gap 7 (5-15) 05/15/20 11:55 BUN 38 mg/dL (7-18) H 05/15/20 11:55 Creatinine 1.59 mg/dL (0.70-1.30) H 05/15/20 11:55 Estim Creat Clear Calc 37.67 ml/min 05/15/20 11:55 Est GFR (MDRD) Af Amer 54 mL/min (>60) L 05/15/20 11:55 Est GFR (MDRD) Non-Af 45 mL/min (>60) L 05/15/20 11:55 BUN/Creatinine Ratio 23.9 RATIO (-20) H 05/15/20 11:55 Glucose 123 mg/dL (74-106) H 05/15/20 11:55 Lactic Acid 2.5 mmol/L (0.4-1.9) H* 05/15/20 11:55 Calcium 7.8 mg/dL (8.5-10.1) L 05/15/20 11:55 Magnesium 2.5 mg/dL (1.6-2.6) 05/15/20 11:55 Total Bilirubin 1.10 mg/dL (0.20-1.00) H 05/15/20 11:55 AST 56 U/L (15-37) H 05/15/20 11:55 ALT 92 U/L (16-61) H 05/15/20 11:55 Alkaline Phosphatase 85 U/L (45-117) 05/15/20 11:55 Troponin I 0.104 ng/mL (<0.045) H 05/15/20 11:55 B-Natriuretic Peptide 644.0 pg/mL (0-100) H 05/15/20 11:55 Total Protein 6.4 g/dL (6.4-8.2) 05/15/20 11:55 Albumin 2.3 g/dL (3.2-5.0) L 05/15/20 11:55 Globulin 4.1 g/dL (2.2-4.2) 05/15/20 11:55 Albumin/Globulin Ratio 0.6 RATIO (0.9-2.4) L 05/15/20 11:55 Urine Color Yellow (Yellow) 05/15/20 12:45 Urine Clarity Sl. Cloudy (Clear) 05/15/20 12:45 Urine pH 5.0 (5.0 - 8.0) 05/15/20 12:45 Ur Specific [place] 1.020 (1.002-1.030) 05/15/20 12:45 Urine Protein 30 mg/dl (Negative) H 05/15/20 12:45 Urine Glucose (UA) Normal mg/dl (Normal) 05/15/20 12:45 Urine Ketones Negative mg/dl (Negative) 05/15/20 12:45 Urine Occult Blood 25 /ul (Negative) H 05/15/20 12:45 Urine Nitrite Negative (Negative) 05/15/20 12:45 Urine Bilirubin Negative mg/dL (Negative) 05/15/20 12:45 Urine Urobilinogen 1 mg/dl (Normal) H 05/15/20 12:45 Ur Leukocyte Esterase 25 /ul (Negative) H 05/15/20 12:45 Urine RBC 0 SEEN /hpf (0-5) 05/15/20 12:45 Urine WBC 0 SEEN /hpf (0-5) 05/15/20 12:45 Ur Squamous Epith Cells 0-5 SEEN /hpf (0-5) 05/15/20 12:45 Urine Bacteria 1+ /hpf (None Seen) 05/15/20 12:45 Urine Mucus 0 SEEN /hpf (<or=2+) 05/15/20 12:45 COVID-19 (ADRI) Detected (Not Detect) 05/15/20 12:40 - Medical Decision Making Patient was kept on BiPAP. Chest x-ray is concerning for infiltrates radiology read this is pulmonary edema. His BNP is up and clinically he had rales and more of a sudden onset of respiratory failure so we treated with some Lasix and continued BiPAP. He rapidly improved. His mottling and perfusion improved. White count is 20,000. His lactic acid and troponin is elevated which I suspect is most likely due to his severe hypoxemia. The patient has received vancomycin and Zosyn concern for pneumonia. COVID has returned positive. Will need to be admitted into the hospital. - Critical Care Time Critical care time (excluding procedures): 30-74 minutes, Discussing w/Patient &/or Family/Safety Assistant, Discussing w/Consultants, Arranging Admission or Transfer, Performing Direct Patient Care at Bedside ED Disposition - Plan for ED Patient: Disposition: Acute Care Hospital [facility] Diagnosis: Acute hypoxemic respiratory failure due to COVID-19, Pulmonary edema, Severe sepsis, custodial (current) use of anticoagulants Referrals: Mayi Curtis MD [Primary Care Provider] -
--- NOTE | 2020-05-15 15:19 | NURSING ---
DR IVANA DARBY
--- NOTE | 2020-05-15 15:28 | NURSING ---
ICU LINN GRAY 19, PULMONARY EDEMA, ACUTE HYPOXEMIC RESP FAILURE
--- NOTE | 2020-05-15 15:41 | HP.PCM_ITS ---
<Harvey Brown - Last Filed: 05/15/20 15:41> Problem List (1) Acute hypoxemic respiratory failure due to COVID-19 Status: Acute (2) CHF (congestive heart failure) Status: Acute (3) Pulmonary embolism Status: Chronic (4) Anemia Status: Acute (5) Calcaneal fracture Status: Chronic (6) Atrial fibrillation Status: Chronic (7) Hypertension Status: Chronic (8) Dyslipidemia Status: Chronic (9) Atherosclerosis of coronary artery of [place] heart without angina pectoris Status: Chronic History of Present Illness Date of Admission: 05/15/20 Chief Complaint: SOB The patient is a 80 year old M with pmhx of CAD with prior CABG, pAfib, bioprosthetic aortic valve, asthma, former smoker, who presents to the ER with SOB. The patient recently was admitted to [facility] and treated for bilateral calcaneal fractures 2/2 fall during which he developed PEs and was placed on eliquis. He went home from [place] Saturday night. Last night he developed severe SOB that came on suddenly at about 2300. He has had a dry cough as well. He denies fever/chills. His called EMS for SOB today and found him with a pulse ox of 50%. He was brought to the ER and placed on bipap in the ER with good response. He currently states he has no SOB while on bipap. He tested positive for covid 19 tho he states that he does not believe that this is possible. [] Past Medical History Past Medical History (Chronic Problems): Chronic Problems (Last Updated 05/15/20 @ 16:[address] 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. 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. Asthma (Chronic) J45.909 Inguinal hernia (Resolved) K40.90 Eczema (Chronic) L30.9 Acute kidney injury (Acute) Onset Date: 07/28/19 N17.9 Tachy-raissa syndrome (Chronic) Onset Date: 05/24/18 I49.5 Atelectasis (Acute) J98.11 Postoperative atrial fibrillation (Chronic) I97.89, I48.91 History of aortic stenosis (Chronic) Z86.79 ROSA to LAD, reverse SVG to OM and PDA of RCA along with AVR using 25 Andrew Awan valve, per Dr. Darrion Meyer, [facility] Hypertension (Chronic) I10 Dyslipidemia (Chronic) E78.5 Atherosclerosis of coronary artery of [place] heart without angina pectoris (Chronic) I25.10 Diverticulitis K57.92 Bilateral pneumothorax Onset Date: 09/01/13 J93.9 Non-rheumatic aortic stenosis (Resolved) I35.0 Allergies atorvastatin Adverse Reaction (Verified 05/03/20 18:15) myalgias Home Medications: Ambulatory Orders Medication Instructions Recorded Multivitamin with Minerals 1 tab PO DAILY 07/16/19 [Multiple Vitamin] Acetaminophen [Tylenol Tablet] 650 mg PO Q6H PRN PRN tab 07/28/19 Aspirin [Aspir-Low] 81 mg PO DAILY@0800 #0 07/28/19 amiodarone 200 mg tablet 200 mg PO DAILY #90 tab 02/25/20 rosuvastatin 10 mg tablet 10 mg PO DAILY #90 tab 02/25/20 Metoprolol Tartrate 25 mg PO DAILY 05/03/20 Albuterol IH (ProAir) [Proair Hfa 2 puff INHALATION Q6H PRN PRN 05/15/20 (SP)Vent Pts] Apixaban [Eliquis] 5 mg PO BID 05/15/20 Calcium Acetate 667 mg PO DAILY 05/15/20 Cholecalciferol (VIT D3) [Vitamin 1,000 unit PO DAILY 05/15/20 D] Fluticasone Propion/Salmeterol 1 ea IH BID 05/15/20 [Fluticasone-Salmeterol 250-50] Loratadine 10 mg PO DAILY 05/15/20 Oxycodone [Oxyir] 5 mg PO Q6H PRN PRN 05/15/20 Prednisone 10 mg PO 05/15/20 Surgical History: Surgical History (Last Reviewed 02/25/20 @ 10:39 by Joan Charles) History of inguinal hernia repair Z98.890, Z87.19 History of open reduction and internal fixation (ORIF) procedure Z98.890 RLE dialysis catheter placement Onset Date: 07/28/19 Left internal jugular pre-curved 23 cm palindrome catheter placement. Lot #[id number]. Expiry date 03/04/[address] Christiane Cheung 07/28/2019 H/O aortic valve replacement Onset Date: 05/22/18 Z95.2 ROSA to LAD, reverse SVG to OM and PDA of RCA along with AVR using 25 Andrew Awan valve, per Dr. Darrion Meyer, [facility] History of left heart catheterization Onset Date: 09/18/17 Z98.890 LMT-30-40% ostial stenosis Mid LAD 60-70% stenosis Mid Cx 50% Stenosis RCA 100% BENEFITS ADVISOR after mid portion w/ left-right collaterals S/P CABG x 3 Onset Date: 05/22/18 Z95.1 ROSA to LAD, reverse SVG to OM and PDA of RCA along with AVR using 25 Andrew Awan valve, per Dr. Darrion Meyer, [facility] Surgical History: coronary bypass surgery, - - Bioprosthetic aortic valve replacement Psychiatric History: No pertinent psych hx Lives: Spouse/ Significant Other Smoking Status: Former smoker Tobacco Use: Non-smoker Alcohol: None Drugs: None - *Family History Paternal History Items: Cancer - pancreatic cancer, Heart Disease - CHF Maternal History Items: No pertinent history Review of Systems Constitutional: Denies: Chills, Fever, Weight Change HEENT: Denies: Head Aches, Sinus Congestion, Sinus Drainage Cardiovascular: Denies: Chest Pain, Palpitations Respiratory: Reports: Cough, Shortness of breath at rest, Shortness of breath upon exertion. Denies: Shortness of Breath, Sputum production, Wheezing Gastrointestinal: Denies: Abdominal Pain, Diarrhea, Nausea, Vomiting Genitourinary: Denies: Dysuria, Hesitancy, Urgency Musculoskeletal: Reports: - - Bilateral leg splints. Denies: Joint Pain, Joint Tenderness, Muscle pain Skin: Denies: Rash, Wounds Neurological: Denies: Confusion, Focal weakness, Numbness, Tingling Psychiatric: Denies: Anxiety, Depression, Homicidal Ideations, Suicidal Ideations Hematologic/ Lymphatic: Denies: Easy Bruising, Easy Bleeding VTE Information - Inpt Only VTE Present on Admission: No VTE Mechan Device Prophylaxis: None VTE Pharm Prophylaxis ordered?: Yes Patient Problems: Active and Suspected Problems (Last Updated 05/15/20 @ 16:[address] Carlene Gamboa MD) Acute hypoxemic respiratory failure due to COVID-19 (Acute) Pulmonary edema (Acute) CHF (congestive heart failure) (Acute) Anemia (Acute) - Physical Exam Vitals/I&O's: Vital Signs Temp Pulse Resp BP Pulse Ox 97.6 F L 66 22 H 112/50 L 93 05/15/20 15:00 05/15/20 15:00 05/15/20 15:00 05/15/20 15:00 05/15/20 15:00 Oxygen Delivery Method Bi-pap Weight: 165 lb 5.547 oz Body Mass Index (BMI) 24.4 Intake and Output for Last 24 Hours 05/13/20 05/14/20 05/15/20 23:59 23:59 23:59 Intake Total 53.5 / 53.5 Balance 53.5 / 53.5 General: Alert, Oriented x3, Cooperative HEENT: Atraumatic, PERRLA, EOMI, Normocephalic Neck: Supple, No JVD, Negative Carotid Bruits Lungs: Clear to auscultation, Diminished Cardiovascular: Regular rate, No murmurs Abdomen: Bowel Sounds Present, Soft, Non Tender Extremities: No edema, Capillary Refill Less than 3 Seconds Skin: No rashes, No breakdown Musculoskeletal: No Tenderness to Palpation of Joints or Extremities Neurological: Cranial nerves II-XII grossly intact Psych/Mental Status: Normal Affect, Appropriate, Alert and oriented to time, place, person, mood and affect Laboratory Results 05/15/20 11:55: WBC 19.9 H, RBC 2.71 L, Hgb 8.6 L, Hct 27.1 L, MCV 100.0 H, MCH 31.7, MCHC 31.7 L, RDW Std Deviation 52.7 H, RDW Coeff of Jeanne 14.6, Plt Count 319, MPV 9.0, Immature Gran % (Auto) 2.000 H, Neut % (Auto) 93.6 H, Lymph % (Auto) 2.3 L, [place] % (Auto) 1.2, Eos % (Auto) 0.7, Baso % (Auto) 0.2, Absolute Neuts (auto) 18.7 H, Absolute Lymphs (auto) 0.45 L, Nucleated RBC % 0.1, Platelet Estimate ADEQUATE, Hypochromasia 1+, Schistocytes RARE 05/15/20 11:55: PT 27.0 H, INR 2.6, APTT 43.1 H 05/15/20 11:55: Sodium 134 L, Potassium 4.1, Chloride 102, Carbon Dioxide 25.0, Anion Gap 7, BUN 38 H, Creatinine 1.59 H, Estim Creat Clear Calc 37.67, Est GFR (MDRD) Af Amer 54 L, Est GFR (MDRD) Non-Af 45 L, BUN/Creatinine Ratio 23.9 H, Glucose 123 H, Calcium 7.8 L, Magnesium 2.5, Total Bilirubin 1.10 H, AST 56 H, ALT 92 H, Alkaline Phosphatase 85, Troponin I 0.104 H, Total Protein 6.4, Albumin 2.3 L, Globulin 4.1, Albumin/Globulin Ratio 0.6 L 05/15/20 11:55: Lactic Acid 2.5 H* 05/15/20 11:55: B-Natriuretic Peptide 644.0 H 05/15/20 12:32: Specimen Type MADINA, Sample Site R Brach, VBG pH 7.45 H, VBG pO2 26, VBG HCO3 22, VBG O2 Sat (Calc) 51, VBG Base Excess -2 L, POC Mix VBG pCO2 Pt Tmp 32.0 L, O2 Delivery Device BiPAP, POC Venous Total CO2 23 05/15/20 12:40: COVID-19 (ADRI) Detected 05/15/20 12:45: Urine Color Yellow, Urine Clarity Sl. Cloudy, Urine pH 5.0, Ur Specific [place] 1.020, Urine Protein 30 H, Urine Glucose (UA) Normal, Urine Ketones Negative, Urine Occult Blood 25 H, Urine Nitrite Negative, Urine Bili tyler Negative, Urine Urobilinogen 1 H, Ur Leukocyte Esterase 25 H, Urine RBC 0 SEEN, Urine WBC 0 SEEN, Ur Squamous Epith Cells 0-5 SEEN, Urine Bacteria 1+, Urine Mucus 0 SEEN Current Medications Sodium Chloride () 250 mls @ 15 mls/hr IV .[id number] PRN PRN Reason: Additional IVPB Infusion Last Infusion: 05/15/20 14:29 Dose: 0 mls/hr Documented by: Assessment/Plan All Active Problems (Last Updated 05/15/20 @ 16:[address] Carlene Gamboa MD) Acute hypoxemic respiratory failure due to COVID-19 (Acute) Pulmonary edema (Acute) CHF (congestive heart failure) (Acute) Anemia (Acute) 1. Acute hypoxic respiratory failure 2/2 Covid 19, viral pna, and acute on chronic diastolic CHF complicated by underlying asthma, former smoker - (+) covid test. CXR c/w CHF. BNP elevated. Last echo 07/16 with preserved EF. Complicated by recent acute PEs. Continue eliquis. Continue bipap. Continue Zosyn. Continue IV lasix. Start IV decadron. Aerosols, PEP therapy, Incentive spirometer. Significant leukocytosis however he has been on steroids. Afebrile. Consult pulmonology, ID. 2. Indeterminate troponin - EKG with changes c/w prior EKG on file. No acute changes. Cycle enzymes. He was profoundly hypoxic at home (50%) so probably has demand ischemia. No chest pain at this time. 3. Acute blood loss anemia - macrocytic - unclear when this developed, possibly during recent admission to [facility]. Will trend. Pt is on Eliquis due to recent PEs however his cardiology notes say he has had bleeding issues with this in the past. 4. Recent pulmonary Emboli - Continue eliquis. 5. pAfib - rate stable, sinus rhythm per EKG. Eliquis, metoprolol, amiodarone. 6. Abnormal LFTs - trend. No hx liver dz. 7. CAD with prior CABG 8. Hx aortic stenosis with bioprosthetic AV 9. Bilateral calcaneal fractures - bilateral splints in place. PT OT when appropriate. DVT ppx: eliquis This patient was seen by Harvey Brown PA-C under the supervision of Dr. Gamboa. <Carlene Gamboa E - Last Filed: 05/15/20 16:25> History of Present Illness The patient is a 80 year old M [] Past Medical History Medical History: Medical History (Last Updated 05/15/20 @ 16:[address] 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. Asthma (Chronic) J45.909 Eczema (Chronic) L30.9 Tachy-raissa syndrome (Chronic) Onset Date: 05/24/18 I49.5 Postoperative atrial fibrillation (Chronic) I97.89, I48.91 History of aortic stenosis (Chronic) Z86.79 ROSA to LAD, reverse SVG to OM and PDA of RCA along with AVR using 25 Andrew Awan valve, per Dr. Darrion Meyer, [facility] Hypertension (Chronic) I10 Dyslipidemia (Chronic) E78.5 Atherosclerosis of coronary artery of [place] heart without angina pectoris (Chronic) I25.10 Diverticulitis K57.92 Bilateral pneumothorax Onset Date: 09/01/13 J93.9 Inguinal hernia (Inactive) K40.90 Allergies atorvastatin Adverse Reaction (Verified 05/03/20 18:15) myalgias Surgical History: Surgical History (Last Reviewed 02/25/20 @ 10:39 by Joan Charles) History of inguinal hernia repair Z98.890, Z87.19 History of open reduction and internal fixation (ORIF) procedure Z98.890 RLE dialysis catheter placement Onset Date: 07/28/19 Left internal jugular pre-curved 23 cm palindrome catheter placement. Lot #[id number]. Expiry date 03/04/[address] Christiane Cheung 07/28/2019 H/O aortic valve replacement Onset Date: 05/22/18 Z95.2 ROSA to LAD, reverse SVG to OM and PDA of RCA along with AVR using 25 Andrew Awan valve, per Dr. Darrion Meyer, [facility] History of left heart catheterization Onset Date: 09/18/17 Z98.890 LMT-30-40% ostial stenosis Mid LAD 60-70% stenosis Mid Cx 50% Stenosis RCA 100% BENEFITS ADVISOR after mid portion w/ left-right collaterals S/P CABG x 3 Onset Date: 05/22/18 Z95.1 ROSA to LAD, reverse SVG to OM and PDA of RCA along with AVR using 25 Andrew Awan valve, per Dr. Darrion Meyer, [facility] [place] - Physical Exam Vitals/I&O's: Vital Signs Temp Pulse Resp BP Pulse Ox 99.9 F H 68 25 H 102/53 L 92 05/15/20 16:00 05/15/20 16:00 05/15/20 16:00 05/15/20 16:00 05/15/20 16:00 Oxygen Delivery Method Bi-pap Weight: 165 lb 5.547 oz Body Mass Index (BMI) 24.4 Intake and Output for Last 24 Hours 05/13/20 05/14/20 05/15/20 23:59 23:59 23:59 Intake Total 53.5 / 53.5 Balance 53.5 / 53.5 Laboratory Results 05/15/20 11:55: WBC 19.9 H, RBC 2.71 L, Hgb 8.6 L, Hct 27.1 L, MCV 100.0 H, MCH 31.7, MCHC 31.7 L, RDW Std Deviation 52.7 H, RDW Coeff of Jeanne 14.6, Plt Count 319, MPV 9.0, Immature Gran % (Auto) 2.000 H, Neut % (Auto) 93.6 H, Lymph % (Auto) 2.3 L, [place] % (Auto) 1.2, Eos % (Auto) 0.7, Baso % (Auto) 0.2, Absolute Neuts (auto) 18.7 H, Absolute Lymphs (auto) 0.45 L, Nucleated RBC % 0.1, Platelet Estimate ADEQUATE, Hypochromasia 1+, Schistocytes RARE 05/15/20 11:55: PT 27.0 H, INR 2.6, APTT 43.1 H 05/15/20 11:55: Sodium 134 L, Potassium 4.1, Chloride 102, Carbon Dioxide 25.0, Anion Gap 7, BUN 38 H, Creatinine 1.59 H, Estim Creat Clear Calc 37.67, Est GFR (MDRD) Af Amer 54 L, Est GFR (MDRD) Non-Af 45 L, BUN/Creatinine Ratio 23.9 H, Glucose 123 H, Calcium 7.8 L, Magnesium 2.5, Total Bilirubin 1.10 H, AST 56 H, ALT 92 H, Alkaline Phosphatase 85, Troponin I 0.104 H, Total Protein 6.4, Albumin 2.3 L, Globulin 4.1, Albumin/Globulin Ratio 0.6 L 05/15/20 11:55: Lactic Acid 2.5 H* 05/15/20 11:55: B-Natriuretic Peptide 644.0 H 05/15/20 12:32: Specimen Type MADINA, Sample Site R Brach, VBG pH 7.45 H, VBG pO2 26, VBG HCO3 22, VBG O2 Sat (Calc) 51, VBG Base Excess -2 L, POC Mix VBG pCO2 Pt Tmp 32.0 L, O2 Delivery Device BiPAP, POC Venous Total CO2 23 05/15/20 12:40: COVID-19 (ADRI) Detected 05/15/20 12:45: Urine Color Yellow, Urine Clarity Sl. Cloudy, Urine pH 5.0, Ur Specific [place] 1.020, Urine Protein 30 H, Urine Glucose (UA) Normal, Urine Ketones Negative, Urine Occult Blood 25 H, Urine Nitrite Negative, Urine Bilirubin Negative, Urine Urobilinogen 1 H, Ur Leukocyte Esterase 25 H, Urine RBC 0 SEEN, Urine WBC 0 SEEN, Ur Squamous Epith Cells 0-5 SEEN, Urine Bacteria 1+, Urine Mucus 0 SEEN Current Medications Sodium Chloride () 250 mls @ 15 mls/hr IV .[id number] PRN PRN Reason: Additional IVPB Infusion Last Infusion: 05/15/20 14:29 Dose: 0 mls/hr Documented by: Assessment/Plan Hospitalist note: I am seeing this patient in conjunction with Harvey Brown. I independently seen and examined the patient. History and physical, laboratory data and imaging studies reviewed and I concur with above admission and treatment plan. Patient presented to the emergency room because of sudden onset shortness of breath that started last night around 11 PM when patient was resting, it is at rest, associated with dry cough and without aggravating or relieving factors. Patient denied fever or chills. He denied chest pain, palpitation, dizziness or lightheadedness. Today, patient symptoms got worse and his called the squad and his pulse ox was in the 50s when the squad arrived at home. Patient was discharged 4 days ago from [facility] after admission for bilateral traumatic calcaneal fractures and his hospital course complicated by pulmonary embolism and he was started on Eliquis. In the emergency department, patient was afebrile, blood pressure and heart rate are stable, he was tachypneic and pulse ox was 97% after he was placed on BiPAP. Currently, he is on BiPAP. His routine blood work was remarkable for leukocytosis, hemoglobin of 8.6 g/dL, BUN 38, creatinine is 1.59. Lactic acid was 2.5. LFT revealed slightly elevated liver transaminases and bilirubin, alk phos is normal. EKG revealed normal sinus rhythm with nonspecific ST, T wave changes. Troponin was 0.104. BNP was 644. COVID-19 PCR was positive. Chest x-ray revealed bilateral significant pulmonary vascular congestion more prominent on the right lung with infiltrate. Patient is being admitted for severe sepsis and acute hypoxic respiratory failure secondary to COVID-19 pneumonia in addition to acute on chronic diastolic CHF. - Physical Exam General: Alert, Oriented x3, Cooperative, moderately short of breath, on BiPAP. HEENT: Atraumatic, PERRLA, EOMI. Neck: Supple, No JVD, Negative Carotid Bruits, Trachea Midline, Thyroid Normal. Lungs: Decreased breath sounds bilateral, bilateral basilar crackles, bilateral rhonchi, short of breath. No wheezing. Cardiovascular: Regular rate, Regular Rhythm, Normal S1, Normal S2, PMI Normal. Abdomen: Bowel Sounds Present, Soft, Non Tender, Non-Distended, No Hepato- splenomegaly. Extremities: No clubbing, No cyanosis, No edema Skin: No rashes, No breakdown Neurological: Cranial nerves are intact, neuro grossly intact Assessment and plan: #1 acute hypoxic respiratory failure: Multifactorial secondary to COVID-19 pneumonia in addition to acute on chronic CHF as well as recent history of pulmonary embolism. Venous blood gas reviewed. Currently, patient was on BiPAP. Plan: Admit to ICU, critical care monitoring, complete bedrest, continue BiPAP, start IV Decadron, continue Eliquis, IV Zosyn, blood culture, urine culture, critical care consult, repeat CBC and CMP tomorrow morning, PT OT evaluation and treatment. #2 acute COVID-19 pneumonia/severe sepsis: Lactic acid 2.5. Troponin is borderline elevated and BNP is elevated. Plan: Start IV Decadron, continue Eliquis for anticoagulation, continue empiric IV Zosyn, check prolactin, LDH, CPK, D-dimer, infectious disease consult. #3 acute on chronic diastolic CHF: Based on chest x-ray findings, sudden onset of symptoms, high BNP and history of diastolic CHF. Plan: Fluid restriction, IV Lasix, 2D echocardiogram, continue metoprolol and statins. #4 acute on chronic anemia: Patient does have chronic anemia, baseline hemoglobin has been around 10-11 g/dL. Admission hemoglobin is 8.6 g/dL. Currently, no evidence of active bleeding. Patient was in [facility] for calcaneal fractures. Plan: Monitor H&H, transfuse if hemoglobin less than 8 g/dL, repeat CBC tomorrow morning. #5 abnormal cardiac enzymes: Likely due to acute on chronic CHF and hypoxia. EKG reviewed, no acute changes. Plan: Cardiac monitoring, serial cardiac enzymes, 2D echocardiogram. #6 recent history of pulmonary embolism: Continue Eliquis. #7 recent history of bilateral traumatic calcaneal fractures: Recent discharge from [facility], status post casting. He is supposed to follow-up with his orthopedic surgeon Dr. Jung in 2 weeks. #8 CODE STATUS: Discussed with the patient and his . Patient agreed to intubation, mechanical ventilation and CPR. #9 DVT prophylaxis: Continue Eliquis. This note was generated with [employer] dictation software. It may contain incorrect words, spelling, and punctuation that were not noted in checking the note before signing. Inpatient E&M: [id number] Init Hosp L3
--- NOTE | 2020-05-15 15:43 | NURSING ---
ICU 4
[2020-05-15 16:06] LABS: Reflex Lactate? Y
--- NOTE | 2020-05-15 16:15 | CPS ---
Patient transferred to ICU on BiPAP without difficulty.
[2020-05-15 17:23] LABS: LDH 473 U/L (87-241)
[2020-05-15 17:48] LABS: Procalcitonin 5.84 ng/mL (0.00-0.09)
[2020-05-15 17:50] LABS: Lactic Acid 2.3 mmol/L (0.4-1.9)
[2020-05-15 18:04] LABS: Fibrinogen 819 mg/dl (203-444)
[2020-05-15 18:11] LABS: D-Dimer Quantitative (DVT/PE) 1.24 FEU/ug/m (0.27-0.49)
[2020-05-15] MEDS: Furosemide 40 MG/4 ML Vial IV (20:42)
[2020-05-15] MEDS: Acetaminophen 325 MG Tablet 650 MG PO (20:44)
[2020-05-15] MEDS: APIXABAN 5 MG TABLET PO (20:44)
--- NOTE | 2020-05-15 22:22 | CPS ---
Unable to give Ventolin Inhaler. Pt is on dependent on BIPAP and MDI doesn't fit inline adapter.
[2020-05-16] VITALS (38 sets, daily range): BP systolic 79–144; BP diastolic 48–91; PULSE 62–80; RESP 12–28; TEMP 36.6–37.1; O2SAT 80–97
[2020-05-16 04:23] LABS: Absolute Lymphocyte Count 0.63 X10^3/uL (0.83-4.51); Absolute Neutrophil Count 15.8 X10^3/uL (2.0-7.7); Basophil# 0.03 X10^3/uL; Basophil% 0.2 % (0-1); Eosinophil# 0.09 X10^3/uL; Eosinophils% 0.5 % (0-5); Hematocrit 27.1 % (40-54); Hemoglobin 8.6 g/dL (13.0-16.5); Lymphocyte # 0.63 X10^3/ul (4.0); Lymphocyte % 3.7 % (19-41); Mean Corp Hgb Conc 31.7 g/dL (32-36); Mean Corpuscular Hgb 31.7 pg (27.0-32.0); Mean Platelet Vol. 9.1 fl (6.2-12.0); Monocyte# 0.16 X10^3/uL; Monocyte% 0.9 % (0-10); NRBC Flagged by Analyzer 0.1 % (0-5); Neutrophil # 15.77 X10^3/uL (2.7-7.7); Neutrophil % 92.7 % (47-70); Platelet Count 310 K/mm3 (150-450); RBC Distribution Width CV 14.8 % (11.6-14.6); RBC Distribution Width SD 55.1 fl (35.1-43.9); Red Blood Count 2.71 M/mm3 (4.6-6.2)
[2020-05-16 04:27] LABS: International Normalized Ratio 2.5; Prothrombin Time (Protime)PT. 26.8 SECONDS (11.7-14.9)
[2020-05-16 04:36] LABS: ALB/GLOB Ratio 0.5 RATIO (0.9-2.4); AST(SGOT) 49 U/L (15-37); Alanine Aminotransfer ALT/SGPT 77 U/L (16-61); Albumin, Serum 2.1 g/dL (3.2-5.0); Alkaline Phosphatase 77 U/L (45-117); Anion Gap 8 (5-15); BUN 41 mg/dL (7-18); BUN/Creat Ratio 22.2 RATIO (10-20); Chloride 103 mmol/L (98-107); Creatinine, Serum 1.85 mg/dL (0.70-1.30); EST Glomerular Filtration Rate 38 mL/min (>60); Est Glom Filt Rate - Afr Amer 46 mL/min (>60); Estimated Creatinine Clearance 30.27 ml/min; Globulin 4.3 g/dL (2.2-4.2); Glucose 105 mg/dL (74-106); Potassium 4.2 mmol/L (3.5-5.1); Protein, Total 6.4 g/dL (6.4-8.2); Sodium Level 137 mmol/L (136-145)
--- NOTE | 2020-05-16 06:19 | PCM.CON.CC ---
Reason for Consult Date of Consultation: 05/16/20 Reason for Consultation: Acute hypoxemic respiratory failure History of Present Illness: The patient is a 80-year-old male, with a history as outlined below, who presented to the emergency department May 15 with shortness of breath and hypoxemia. The patient does have a history of coronary artery disease status post CABG, heart failure with preserved ejection fraction and valvular heart disease. The patient was recently admitted to the hospital in [place] where he was diagnosed with calcaneal fractures and pulmonary emboli, for which she was placed on systemic anticoagulation with Eliquis. The patient does note that his symptoms initially began shortly after his discharge from the [facility] this past Saturday. He also apparently has a history of asthma, which is under control normally with a combination ICS/long-acting bronchodilator. On presentation to the emergency department, the patient was noted to be afebrile and hemodynamically stable. He was, however, tachypneic and hypoxemic requiring noninvasive positive pressure ventilatory support. Laboratory evaluation revealed an elevated white blood cell count to 20,000. Coagulation profile revealed an INR of 2.6 with a D-dimer of 1.24. Chemistry profile was notable for a creatinine of 1.59 with a lactate of 2.5. Total bili was increased to 1.1. AST and ALT were increased to 56 and 92, respectively. Troponin was mildly elevated to 0.104. BNP was mildly elevated to 644. UA was unrevealing. Coronavirus PCR was positive. Chest x-ray revealed bilateral infiltrates. The patient was maintained on BiPAP therapy. He received IV Lasix and antimicrobials. He was subsequently admitted to the medical intensive care unit for further management. Past Medical History Past Medical History (Chronic Problems): Chronic Problems (Last Updated 05/15/20 @ 16:[address] 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 Darrion Meyer, [facility] Atrial fibrillation (Chronic) Hypertension (Chronic) Dyslipidemia (Chronic) Atherosclerosis of coronary artery of [place] heart without angina pectoris (Chronic) Medical History: Medical History (Last Updated 05/15/20 @ 16:[address] 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 Asthma (Chronic) J45.909 Eczema (Chronic) L30.9 Tachy-raissa syndrome (Chronic) Onset Date: 05/24/18 I49.5 Postoperative atrial fibrillation (Chronic) I97.89, I48.91 History of aortic stenosis (Chronic) Z86.79 ROSA to LAD, reverse SVG to OM and PDA of RCA along with AVR using 25 Andrew Awan valve, per Dr. Darrion Meyer, [facility] Hypertension (Chronic) I10 Dyslipidemia (Chronic) E78.5 Atherosclerosis of coronary artery of [place] heart without angina pectoris (Chronic) I25.10 Diverticulitis K57.92 Bilateral pneumothorax Onset Date: 09/01/13 J93.9 Inguinal hernia (Inactive) K40.90 Allergies atorvastatin Adverse Reaction (Verified 05/03/20 18:15) myalgias Home Medications: Ambulatory Orders Medication Instructions Recorded Multivitamin with Minerals 1 tab PO DAILY 07/16/19 [Multiple Vitamin] Acetaminophen [Tylenol Tablet] 650 mg PO Q6H PRN PRN tab 07/28/19 Aspirin [Aspir-Low] 81 mg PO DAILY@0800 #0 07/28/19 amiodarone 200 mg tablet 200 mg PO DAILY #90 tab 02/25/20 rosuvastatin 10 mg tablet 10 mg PO DAILY #90 tab 02/25/20 Metoprolol Tartrate 25 mg PO DAILY 05/03/20 Albuterol IH (ProAir) [Proair Hfa 2 puff INHALATION Q6H PRN PRN 05/15/20 (SP)Vent Pts] Apixaban [Eliquis] 5 mg PO BID 05/15/20 Calcium Acetate 667 mg PO DAILY 05/15/20 Cholecalciferol (VIT D3) [Vitamin 1,000 unit PO DAILY 05/15/20 D] Fluticasone Propion/Salmeterol 1 ea IH BID 05/15/20 [Fluticasone-Salmeterol 250-50] Loratadine 10 mg PO DAILY 05/15/20 Oxycodone [Oxyir] 5 mg PO Q6H PRN PRN 05/15/20 Prednisone 10 mg PO 05/15/20 Surgical History: Surgical History (Last Reviewed 02/25/20 @ 10:39 by Joan Charles) History of inguinal hernia repair Z98.890, Z87.19 History of open reduction and internal fixation (ORIF) procedure Z98.890 RLE dialysis catheter placement Onset Date: 07/28/19 Left internal jugular pre-curved 23 cm palindrome catheter placement. Lot #[id number]. Expiry date 03/04/[address] Christiane Cheung 07/28/2019 H/O aortic valve replacement Onset Date: 05/22/18 Z95.2 ROSA to LAD, reverse SVG to OM and PDA of RCA along with AVR using 25 Andrew Awan valve, per Dr. Darrion Meyer, [facility] History of left heart catheterization Onset Date: 09/18/17 Z98.890 LMT-30-40% ostial stenosis Mid LAD 60-70% stenosis Mid Cx 50% Stenosis RCA 100% [employer] after mid portion w/ left-right collaterals S/P CABG x 3 Onset Date: 05/22/18 Z95.1 ROSA to LAD, reverse SVG to OM and PDA of RCA along with AVR using 25 Andrew Awan valve, per Dr. Darrion Meyer, [facility] Surgical History: coronary bypass surgery, - - Bioprosthetic aortic valve replacement Psychiatric History: No pertinent psych hx Lives: Spouse/ Significant Other Smoking Status: Former smoker Tobacco Use: Non-smoker Alcohol: None Drugs: None - *Family History Paternal History Items: Cancer - pancreatic cancer, Heart Disease - CHF Maternal History Items: No pertinent history Review of Systems Constitutional: Reports: Malaise, Fatigue Eyes: Denies: Blurred vision, Double vision HEENT: Denies: Head Aches, Sinus Congestion, Sinus Drainage Cardiovascular: Denies: Chest Pain, Palpitations Respiratory: Reports: Cough, Shortness of Breath Gastrointestinal: Denies: Abdominal Pain, Nausea, Vomiting Genitourinary: Denies: Dysuria Musculoskeletal: Reports: Foot Pain. Denies: Joint Pain, Joint Tenderness Skin: Denies: Rash, Wounds Neurological: Denies: Numbness, Tingling, Focal weakness Psychiatric: Denies: Anxiety, Depression, Homicidal Ideations, Suicidal Ideations Hematologic/ Lymphatic: Denies: Easy Bruising, Easy Bleeding Patient Problems: Active and Suspected Problems (Last Updated 05/15/20 @ 16:[address] Carlene Gamboa MD) Acute hypoxemic respiratory failure due to COVID-19 (Acute) Pulmonary edema (Acute) CHF (congestive heart failure) (Acute) Anemia (Acute) Objective: The patient's most recent lab work, culture data and imaging studies have all been personally reviewed. Surface echocardiogram revealed moderate concentric LVH with an ejection fraction of 65 to 75%. Diastolic dysfunction was noted along with a right ventricular systolic pressure estimated to be 40 mmHg. Coronavirus PCR was positive on May 15. Blood and urine cultures are pending. - Physical Exam Vitals/I&O's: Vital Signs Temp Pulse Resp BP Pulse Ox 98.1 F 67 24 H 112/54 L 95 05/16/20 04:00 05/16/20 06:00 05/16/20 06:00 05/16/20 06:00 05/16/20 06:00 Oxygen Delivery Method Bi-pap Weight: 157 lb 6.561 oz Body Mass Index (BMI) 24.5 Intake and Output for Last 24 Hours 05/14/20 05/15/20 05/16/20 23:59 23:59 23:59 Intake Total 658.5 / 658.5 700 / 700 Output Total 1400 / 1700 800 / 800 Balance -741.5 / -1041.5 -100 / -100 General: Alert, Cooperative, - - Tolerating BiPAP without issue. HEENT: Atraumatic, Normocephalic Oral: No Gingival or Mucosal Lesions/ Ulcerations Neck: Supple, No Nodes, Trachea Midline Lungs: Diminished, Tachypneic Cardiovascular: Regular rate, Regular Rhythm Abdomen: Bowel Sounds Present, Soft, Non Tender Extremities: No clubbing, No cyanosis, No edema Skin: No breakdown Musculoskeletal: No Tenderness to Palpation of Joints or Extremities Lymphatic: No Cervical, Supraclavicular, or Inguinal Adenopathy Neurological: Cranial nerves II-XII grossly intact, Neuro grossly intact Psych/Mental Status: Normal Affect, Appropriate Labs (Last 48 Hours) 05/15/20 05/15/20 05/15/20 11:55 11:55 11:55 WBC 19.9 H RBC 2.71 L Hgb 8.6 L Hct 27.1 L MCV 100.0 H MCH 31.7 MCHC 31.7 L RDW Std Deviation 52.7 H RDW Coeff of Jeanne 14.6 Plt Count 319 MPV 9.0 Immature Gran % (Auto) 2.000 H Neut % (Auto) 93.6 H Lymph % (Auto) 2.3 L [place] % (Auto) 1.2 Eos % (Auto) 0.7 Baso % (Auto) 0.2 Absolute Neuts (auto) 18.7 H Absolute Lymphs (auto) 0.45 L Nucleated RBC % 0.1 Platelet Estimate ADEQUATE Hypochromasia 1+ Schistocytes RARE PT 27.0 H INR 2.6 APTT 43.1 H Fibrinogen D-Dimer Quant (PE/DVT) Specimen Type Sample Site VBG pH VBG pO2 VBG HCO3 VBG O2 Sat (Calc) VBG Base Excess POC Mix VBG pCO2 Pt Tmp O2 Delivery Device Sodium 134 L Potassium 4.1 Chloride 102 Carbon Dioxide 25.0 POC Venous Total CO2 Anion Gap 7 BUN 38 H Creatinine 1.59 H Estim Creat Clear Calc 37.67 Est GFR (MDRD) Af Amer 54 L Est GFR (MDRD) Non-Af 45 L BUN/Creatinine Ratio 23.9 H Glucose 123 H Lactic Acid Calcium 7.8 L Magnesium 2.5 Total Bilirubin 1.10 H AST 56 H ALT 92 H Alkaline Phosphatase 85 Lactate Dehydrogenase Troponin I 0.104 H C-React Prot Ext Range B-Natriuretic Peptide Total Protein 6.4 Albumin 2.3 L Globulin 4.1 Albumin/Globulin Ratio 0.6 L Procalcitonin Urine Color Urine Clarity Urine pH Ur Specific [place] Urine Protein Urine Glucose (UA) Urine Ketones Urine Occult Blood Urine Nitrite Urine Bilirubin Urine Urobilinogen Ur Leukocyte Esterase Urine RBC Urine WBC Ur Squamous Epith Cells Urine Bacteria Urine Mucus COVID-19 (ADRI) 05/15/20 05/15/20 05/15/20 11:55 11:55 11:55 WBC RBC Hgb Hct MCV MCH MCHC RDW Std Deviation RDW Coeff of Jeanne Plt Count MPV Immature Gran % (Auto) Neut % (Auto) Lymph % (Auto) [place] % (Auto) Eos % (Auto) Baso % (Auto) Absolute Neuts (auto) Absolute Lymphs (auto) Nucleated RBC % Platelet Estimate Hypochromasia Schistocytes PT INR APTT Fibrinogen 819 H D-Dimer Quant (PE/DVT) 1.24 H* Specimen Type Sample Site VBG pH VBG pO2 VBG HCO3 VBG O2 Sat (Calc) VBG Base Excess POC Mix VBG pCO2 Pt Tmp O2 Delivery Device Sodium Potassium Chloride Carbon Dioxide POC Venous Total CO2 Anion Gap BUN Creatinine Estim Creat Clear Calc Est GFR (MDRD) Af Amer Est GFR (MDRD) Non-Af BUN/Creatinine Ratio Glucose Lactic Acid 2.5 H* Calcium Magnesium Total Bilirubin AST ALT Alkaline Phosphatase Lactate Dehydrogenase Troponin I C-React Prot Ext Range B-Natriuretic Peptide 644.0 H Total Protein Albumin Globulin Albumin/Globulin Ratio Procalcitonin Urine Color Urine Clarity Urine pH Ur Specific [place] Urine Protein Urine Glucose (UA) Urine Ketones Urine Occult Blood Urine Nitrite Urine Bilirubin Urine Urobilinogen Ur Leukocyte Esterase Urine RBC Urine WBC Ur Squamous Epith Cells Urine Bacteria Urine Mucus COVID-19 (ADRI) 05/15/20 05/15/20 05/15/20 11:55 12:32 12:40 WBC RBC Hgb Hct MCV MCH MCHC RDW Std Deviation RDW Coeff of Jeanne Plt Count MPV Immature Gran % (Auto) Neut % (Auto) Lymph % (Auto) [place] % (Auto) Eos % (Auto) Baso % (Auto) Absolute Neuts (auto) Absolute Lymphs (auto) Nucleated RBC % Platelet Estimate Hypochromasia Schistocytes PT INR APTT Fibrinogen D-Dimer Quant (PE/DVT) Specimen Type MADINA Sample Site R Brach VBG pH 7.45 H VBG pO2 26 VBG HCO3 22 VBG O2 Sat (Calc) 51 VBG Base Excess -2 L POC Mix VBG pCO2 Pt Tmp 32.0 L O2 Delivery Device BiPAP Sodium Potassium Chloride Carbon Dioxide POC Venous Total CO2 23 Anion Gap BUN Creatinine Estim Creat Clear Calc Est GFR (MDRD) Af Amer Est GFR (MDRD) Non-Af BUN/Creatinine Ratio Glucose Lactic Acid Calcium Magnesium Total Bilirubin AST ALT Alkaline Phosphatase Lactate Dehydrogenase 473 H Troponin I C-React Prot Ext Range 261.00 H B-Natriuretic Peptide Total Protein Albumin Globulin Albumin/Globulin Ratio Procalcitonin Urine Color Urine Clarity Urine pH Ur Specific [place] Urine Protein Urine Glucose (UA) Urine Ketones Urine Occult Blood Urine Nitrite Urine Bilirubin Urine Urobilinogen Ur Leukocyte Esterase Urine RBC Urine WBC Ur Squamous Epith Cells Urine Bacteria Urine Mucus COVID-19 (ADRI) Detected 05/15/20 05/15/20 05/15/20 12:45 17:00 17:00 WBC RBC Hgb Hct MCV MCH MCHC RDW Std Deviation RDW Coeff of Jeanne Plt Count MPV Immature Gran % (Auto) Neut % (Auto) Lymph % (Auto) [place] % (Auto) Eos % (Auto) Baso % (Auto) Absolute Neuts (auto) Absolute Lymphs (auto) Nucleated RBC % Platelet Estimate Hypochromasia Schistocytes PT INR APTT Fibrinogen D-Dimer Quant (PE/DVT) Specimen Type Sample Site VBG pH VBG pO2 VBG HCO3 VBG O2 Sat (Calc) VBG Base Excess POC Mix VBG pCO2 Pt Tmp O2 Delivery Device Sodium Potassium Chloride Carbon Dioxide POC Venous Total CO2 Anion Gap BUN Creatinine Estim Creat Clear Calc Est GFR (MDRD) Af Amer Est GFR (MDRD) Non-Af BUN/Creatinine Ratio Glucose Lactic Acid 2.3 H* Calcium Magnesium Total Bilirubin AST ALT Alkaline Phosphatase Lactate Dehydrogenase Troponin I C-React Prot Ext Range B-Natriuretic Peptide Total Protein Albumin Globulin Albumin/Globulin Ratio Procalcitonin 5.84 H Urine Color Yellow Urine Clarity Sl. Cloudy Urine pH 5.0 Ur Specific [place] 1.020 Urine Protein 30 H Urine Glucose (UA) Normal Urine Ketones Negative Urine Occult Blood 25 H Urine Nitrite Negative Urine Bilirubin Negative Urine Urobilinogen 1 H Ur Leukocyte Esterase 25 H Urine RBC 0 SEEN Urine WBC 0 SEEN Ur Squamous Epith Cells 0-5 SEEN Urine Bacteria 1+ Urine Mucus 0 SEEN COVID-19 (ADRI) 05/15/20 05/15/20 05/15/20 17:50 20:45 23:30 WBC RBC Hgb Hct MCV MCH MCHC RDW Std Deviation RDW Coeff of Jeanne Plt Count MPV Immature Gran % (Auto) Neut % (Auto) Lymph % (Auto) [place] % (Auto) Eos % (Auto) Baso % (Auto) Absolute Neuts (auto) Absolute Lymphs (auto) Nucleated RBC % Platelet Estimate Hypochromasia Schistocytes PT INR APTT Fibrinogen D-Dimer Quant (PE/DVT) Specimen Type Sample Site VBG pH VBG pO2 VBG HCO3 VBG O2 Sat (Calc) VBG Base Excess POC Mix VBG pCO2 Pt Tmp O2 Delivery Device Sodium Potassium Chloride Carbon Dioxide POC Venous Total CO2 Anion Gap BUN Creatinine Estim Creat Clear Calc Est GFR (MDRD) Af Amer Est GFR (MDRD) Non-Af BUN/Creatinine Ratio Glucose Lactic Acid Calcium Magnesium Total Bilirubin AST ALT Alkaline Phosphatase Lactate Dehydrogenase Troponin I 0.109 H 0.108 H 0.099 H C-React Prot Ext Range B-Natriuretic Peptide Total Protein Albumin Globulin Albumin/Globulin Ratio Procalcitonin Urine Color Urine Clarity Urine pH Ur Specific [place] Urine Protein Urine Glucose (UA) Urine Ketones Urine Occult Blood Urine Nitrite Urine Bilirubin Urine Urobilinogen Ur Leukocyte Esterase Urine RBC Urine WBC Ur Squamous Epith Cells Urine Bacteria Urine Mucus COVID-19 (ADRI) 05/16/20 05/16/20 05/16/20 04:00 04:00 04:00 WBC 17.0 H RBC 2.71 L Hgb 8.6 L Hct 27.1 L MCV 100.0 H MCH 31.7 MCHC 31.7 L RDW Std Deviation 55.1 H RDW Coeff of Jeanne 14.8 H Plt Count 310 MPV 9.1 Immature Gran % (Auto) 2.000 H Neut % (Auto) 92.7 H Lymph % (Auto) 3.7 L [place] % (Auto) 0.9 Eos % (Auto) 0.5 Baso % (Auto) 0.2 Absolute Neuts (auto) 15.8 H Absolute Lymphs (auto) 0.63 L Nucleated RBC % 0.1 Platelet Estimate Hypochromasia Schistocytes PT 26.8 H INR 2.5 APTT Fibrinogen D-Dimer Quant (PE/DVT) Specimen Type Sample Site VBG pH VBG pO2 VBG HCO3 VBG O2 Sat (Calc) VBG Base Excess POC Mix VBG pCO2 Pt Tmp O2 Delivery Device Sodium 137 Potassium 4.2 Chloride 103 Carbon Dioxide 26.0 POC Venous Total CO2 Anion Gap 8 BUN 41 H Creatinine 1.85 H Estim Creat Clear Calc 30.27 Est GFR (MDRD) Af Amer 46 L Est GFR (MDRD) Non-Af 38 L BUN/Creatinine Ratio 22.2 H Glucose 105 Lactic Acid Calcium 8.0 L Magnesium Total Bilirubin 1.00 AST 49 H ALT 77 H Alkaline Phosphatase 77 Lactate Dehydrogenase Troponin I C-React Prot Ext Range B-Natriuretic Peptide Total Protein 6.4 Albumin 2.1 L Globulin 4.3 H Albumin/Globulin Ratio 0.5 L Procalcitonin Urine Color Urine Clarity Urine pH Ur Specific [place] Urine Protein Urine Glucose (UA) Urine Ketones Urine Occult Blood Urine Nitrite Urine Bilirubin Urine Urobilinogen Ur Leukocyte Esterase Urine RBC Urine WBC Ur Squamous Epith Cells Urine Bacteria Urine Mucus COVID-19 (ADRI) Clinical Impression(s) from Imaging Studies Chest X-Ray 05/15/20 11:59 IMPRESSION: Severe congestive heart failure. Electronically Signed: Moe Elam MD at 12:54 EDT Tel , Service support , Current Medications Acetaminophen (Acetaminophen 325 Mg Tablet) 650 mg PO Q6H PRN PRN PRN Reason: Pain Score 1-10/Temp > 100.7 F Last Admin: 05/15/20 20:44 Dose: 650 mg Documented by: Albuterol Sulfate (Albuterol Sulfate 8 Gm Inhaler (60 Puffs)) 2 puff INHALATION Q4H PRN PRN PRN Reason: Shortness of breath, wheezing Albuterol Sulfate (Albuterol Sulfate 8 Gm Inhaler (60 Puffs)) 1 puff INHALATION Q6HWA.RT GIANNA Amiodarone HCl (Amiodarone 200 Mg Tablet) 200 mg PO DAILY [facility] Apixaban (Apixaban 5 Mg Tablet) 5 mg PO BID [facility] Last Admin: 05/15/20 20:44 Dose: 5 mg Documented by: Aspirin (Aspirin E.C. 81 Mg Tablet) 81 mg PO DAILY@0800 [facility] Calcium Acetate (Calcium Acetate 667 Mg Capsule) 667 mg PO DAILY [facility] Dexamethasone Sodium Phosphate (Dexamethasone 10 Mg/Ml Vial) 6 mg IV DAILY [facility] Piperacillin Sod/Tazobactam (Sod 3.375 gm/ Sodium Chloride) 50 mls @ 12.5 mls/hr IV Q8 [facility] Last Admin: 05/16/20 05:02 Dose: 12.5 mls/hr Documented by: Metoprolol Tartrate (Metoprolol Tartrate 25 Mg Tablet) 25 mg PO DAILY [facility] Ondansetron HCl (Ondansetron 4 Mg/2 Ml Vial) 4 mg IV Q8H PRN PRN PRN Reason: NAUSEA/VOMITING Oxycodone HCl (Oxycodone 5 Mg Tablet) 5 mg PO Q6H PRN PRN PRN Reason: Pain 1-10 or Fever Rosuvastatin Calcium (Rosuvastatin Calcium 10 Mg Tablet) 10 mg PO QHS GIANNA Last Admin: 05/15/20 20:43 Dose: 10 mg Documented by: Senna/Docusate Sodium (Senna/Docusate Sodium 1 Tablet) 2 tablet PO BID PRN PRN Reason: Constipation Sodium Chloride (0.9% Saline Lock 10 Ml Syringe) 10 - 40 ml IV UD PRN PRN Reason: SALINE FLUSH Assessment/Plan Active and Suspected Problems (Last Updated 05/15/20 @ 16:[address] Carlene Gamboa MD) Acute hypoxemic respiratory failure due to COVID-19 (Acute) Pulmonary edema (Acute) CHF (congestive heart failure) (Acute) Anemia (Acute) RECOMMENDATIONS: 1. Start scheduled bronchodilator therapy. 2. Continue BiPAP therapy and consider transitioning patient to Airvo heated high flow for comfort. 3. Titrate FiO2 to maintain oxygen saturations at or above 90%. 4. Continue systemic anticoagulation with Eliquis. 5. Continue scheduled Decadron. 6. Consider starting remdesivir and convalescent plasma. Infectious diseases consultation is currently pending. 7. Okay to continue empiric antimicrobials for now. 8. Patient to remain n.p.o., pending improvement in respiratory status. IMPRESSIONS: 1. Acute hypoxemic respiratory failure secondary to Covid pneumonia Continue current supportive measures including noninvasive positive pressure ventilatory support, with plans to transition the patient to Airvo heated high flow as tolerated. Goal to wean FiO2 to maintain oxygen saturations at or above 90%. The patient is already systemically anticoagulated on Eliquis, which will be continued. Decadron has already been started, with plans to complete a 10-day treatment course. Given the tenuous nature of the patient's respiratory status, recommend considering starting patient on remdesivir and convalescent plasma. Infectious diseases consultation is currently pending. 2. Recent diagnosis of pulmonary embolism The patient was recently diagnosed with pulmonary emboli at an outside institution last week. Accordingly, systemic anticoagulation will be continued. 3. Severe sepsis secondary to Covid pneumonia As noted above, I agree with continuing empiric antimicrobials, should there be a superimposed component of bacterial pneumonia present as well. Covid supportive measures will be continued as noted above. The patient is currently hemodynamically stable. 4. History of diastolic dysfunction/pulmonary hypertension/coronary artery disease status post CABG Hold on additional diuresis, given underlying renal insufficiency. Continue outpatient cardiac regimen. 5. Self-reported history of asthma The patient will be started on scheduled bronchodilator therapy along with budesonide. Continue supportive measures as noted above. 6. Anemia/chronic kidney disease/history of atrial fibrillation/hyperlipidemia/advanced age Complicates care, management, recovery and prognosis. Continue home medications as indicated. Physical therapy evaluation once medically stabilized. TIME: 38 minutes of critical care time, independent of procedures, was spent addressing the patient's acute hypoxemic respiratory failure secondary to Covid pneumonia, recent diagnosis of pulmonary embolism, severe sepsis secondary to Covid pneumonia, history of heart failure with preserved ejection fraction, self-reported history of asthma, review of all data and collaboration with the care team. [id number]) [id number] Critical care first hour
--- NOTE | 2020-05-16 07:30 | PCM.PN.HOSP ---
Patient Problems: Active and Suspected Problems (Last Updated 05/15/20 @ 16:[address] Carlene Gamboa MD) Acute hypoxemic respiratory failure due to COVID-19 (Acute) Pulmonary edema (Acute) CHF (congestive heart failure) (Acute) Anemia (Acute) Reason for Visit: Acute hypoxic respiratory failure COVID-19 pneumonia Subjective: Patient is a 80-year-old gentleman with recent admission at [facility] for bilateral calcaneal fracture. Hospital stay was complicated by pulmonary emboli discharged on systemic anticoagulation presented to the emergency department with progressive shortness of breath suspect of acute hypoxic respiratory failure made. Subsequent COVID-19 assay came back positive Objective: GENERAL: On BiPAP HEENT: Atraumatic; EYES; Anicteric, Normal Conjunctiva NECK; supple, normal thyroid, RESPIRATORY: Diminished to auscultation CARDIOVASCULAR: Regular S1 S2, GI: soft, normoactive bowel sounds, : No Renal angle tenderness; EXTREMITIES: Lower extremities in MUSCULOSKELETAL: no muscle waisting NEURO: Awake; no lateralizing signs. SKIN: No Rash PSYCH; Flat affect Vitals/I&O's: Vital Signs Temp Pulse Resp BP Pulse Ox 98.1 F 73 26 H 115/55 L 90 05/16/20 04:00 05/16/20 07:22 05/16/20 07:22 05/16/20 07:00 05/16/20 07:22 Oxygen Delivery Method Bi-pap Weight: 71.4 kg Body Mass Index (BMI) 24.5 Intake and Output for Last 24 Hours 05/14/20 05/15/20 05/16/20 23:59 23:59 23:59 Intake Total 658.5 / 658.5 700 / 700 Output Total 1400 / 1700 800 / 800 Balance -741.5 / -1041.5 -100 / -100 Laboratory Results 05/15/20 11:55: WBC 19.9 H, RBC 2.71 L, Hgb 8.6 L, Hct 27.1 L, MCV 100.0 H, MCH 31.7, MCHC 31.7 L, RDW Std Deviation 52.7 H, RDW Coeff of Jeanne 14.6, Plt Count 319, MPV 9.0, Immature Gran % (Auto) 2.000 H, Neut % (Auto) 93.6 H, Lymph % (Auto) 2.3 L, [place] % (Auto) 1.2, Eos % (Auto) 0.7, Baso % (Auto) 0.2, Absolute Neuts (auto) 18.7 H, Absolute Lymphs (auto) 0.45 L, Nucleated RBC % 0.1, Platelet Estimate ADEQUATE, Hypochromasia 1+, Schistocytes RARE 05/15/20 11:55: PT 27.0 H, INR 2.6, APTT 43.1 H 05/15/20 11:55: Sodium 134 L, Potassium 4.1, Chloride 102, Carbon Dioxide 25.0, Anion Gap 7, BUN 38 H, Creatinine 1.59 H, Estim Creat Clear Calc 37.67, Est GFR (MDRD) Af Amer 54 L, Est GFR (MDRD) Non-Af 45 L, BUN/Creatinine Ratio 23.9 H, Glucose 123 H, Calcium 7.8 L, Magnesium 2.5, Total Bilirubin 1.10 H, AST 56 H, ALT 92 H, Alkaline Phosphatase 85, Troponin I 0.104 H, Total Protein 6.4, Albumin 2.3 L, Globulin 4.1, Albumin/Globulin Ratio 0.6 L 05/15/20 11:55: Lactic Acid 2.5 H* 05/15/20 11:55: B-Natriuretic Peptide 644.0 H 05/15/20 11:55: Fibrinogen 819 H, D-Dimer Quant (PE/DVT) 1.24 H* 05/15/20 11:55: Lactate Dehydrogenase 473 H, C-React Prot Ext Range 261.00 H 05/15/20 12:32: Specimen Type MADINA, Sample Site R Brach, VBG pH 7.45 H, VBG pO2 26, VBG HCO3 22, VBG O2 Sat (Calc) 51, VBG Base Excess -2 L, POC Mix VBG pCO2 Pt Tmp 32.0 L, O2 Delivery Device BiPAP, POC Venous Total CO2 23 05/15/20 12:40: COVID-19 (ADRI) Detected 05/15/20 12:45: Urine Color Yellow, Urine Clarity Sl. Cloudy, Urine pH 5.0, Ur Specific Only 1.020, Urine Protein 30 H, Urine Glucose (UA) Normal, Urine Ketones Negative, Urine Occult Blood 25 H, Urine Nitrite Negative, Urine Bilirubin Negative, Urine Urobilinogen 1 H, Ur Leukocyte Esterase 25 H, Urine RBC 0 SEEN, Urine WBC 0 SEEN, Ur Squamous Epith Cells 0-5 SEEN, Urine Bacteria 1+, Urine Mucus 0 SEEN 05/15/20 17:00: Lactic Acid 2.3 H* 05/15/20 17:00: Procalcitonin 5.84 H 05/15/20 17:50: Troponin I 0.109 H 05/15/20 20:45: Troponin I 0.108 H 05/15/20 23:30: Troponin I 0.099 H 05/16/20 04:00: WBC 17.0 H, RBC 2.71 L, Hgb 8.6 L, Hct 27.1 L, MCV 100.0 H, MCH 31.7, MCHC 31.7 L, RDW Std Deviation 55.1 H, RDW Coeff of Jeanne 14.8 H, Plt Count 310, MPV 9.1, Immature Gran % (Auto) 2.000 H, Neut % (Auto) 92.7 H, Lymph % (Auto) 3.7 L, [place] % (Auto) 0.9, Eos % (Auto) 0.5, Baso % (Auto) 0.2, Absolute Neuts (auto) 15.8 H, Absolute Lymphs (auto) 0.63 L, Nucleated RBC % 0.1 05/16/20 04:00: PT 26.8 H, INR 2.5 05/16/20 04:00: Sodium 137, Potassium 4.2, Chloride 103, Carbon Dioxide 26.0, Anion Gap 8, BUN 41 H, Creatinine 1.85 H, Estim Creat Clear Calc 30.27, Est GFR (MDRD) Af Amer 46 L, Est GFR (MDRD) Non-Af 38 L, BUN/Creatinine Ratio 22.2 H, Glucose 105, Calcium 8.0 L, Total Bilirubin 1.00, AST 49 H, ALT 77 H, Alkaline Phosphatase 77, Total Protein 6.4, Albumin 2.1 L, Globulin 4.3 H, Albumin/Globulin Ratio 0.5 L Current Medications Acetaminophen (Acetaminophen 325 Mg Tablet) 650 mg PO Q6H PRN PRN PRN Reason: Pain Score 1-10/Temp > 100.7 F Last Admin: 05/15/20 20:44 Dose: 650 mg Documented by: Albuterol Sulfate (Albuterol Sulfate 8 Gm Inhaler (60 Puffs)) 2 puff INHALATION Q4H PRN PRN PRN Reason: Shortness of breath, wheezing Albuterol Sulfate (Albuterol Sulfate 8 Gm Inhaler (60 Puffs)) 1 puff INHALATION Q6HWA.RT GIANNA Amiodarone HCl (Amiodarone 200 Mg Tablet) 200 mg PO DAILY [facility] Apixaban (Apixaban 5 Mg Tablet) 5 mg PO BID [facility] Last Admin: 05/15/20 20:44 Dose: 5 mg Documented by: Aspirin (Aspirin E.C. 81 Mg Tablet) 81 mg PO DAILY@0800 [facility] Calcium Acetate (Calcium Acetate 667 Mg Capsule) 667 mg PO DAILY [facility] Dexamethasone Sodium Phosphate (Dexamethasone 10 Mg/Ml Vial) 6 mg IV DAILY [facility] Piperacillin Sod/Tazobactam (Sod 3.375 gm/ Sodium Chloride) 50 mls @ 12.5 mls/hr IV Q8 [facility] Last Admin: 05/16/20 05:02 Dose: 12.5 mls/hr Documented by: Metoprolol Tartrate (Metoprolol Tartrate 25 Mg Tablet) 25 mg PO DAILY [facility] Ondansetron HCl (Ondansetron 4 Mg/2 Ml Vial) 4 mg IV Q8H PRN PRN PRN Reason: NAUSEA/VOMITING Oxycodone HCl (Oxycodone 5 Mg Tablet) 5 mg PO Q6H PRN PRN PRN Reason: Pain 1-10 or Fever Rosuvastatin Calcium (Rosuvastatin Calcium 10 Mg Tablet) 10 mg PO QHS [facility] Last Admin: 05/15/20 20:43 Dose: 10 mg Documented by: Senna/Docusate Sodium (Senna/Docusate Sodium 1 Tablet) 2 tablet PO BID PRN PRN Reason: Constipation Sodium Chloride (0.9% Saline Lock 10 Ml Syringe) 10 - 40 ml IV UD PRN PRN Reason: SALINE FLUSH STROKE Vital Signs/Narrative: Vital Signs Temp Pulse Resp BP Pulse Ox 05/16/20 07:22 73 26 H 90 05/16/20 07:00 69 24 H 115/55 L 92 05/16/20 06:00 67 24 H 112/54 L 95 05/16/20 05:10 68 25 H 92 05/16/20 05:00 67 26 H 138/56 H 92 05/16/20 04:00 98.1 F 64 24 H 128/49 H 94 05/16/20 03:40 70 Medical Necessity - Tobacco Use Smoking Status: Former smoker Tobacco Use: Non-smoker Assessment/Plan All Active Problems (Last Updated 05/15/20 @ 16:[address] Carlene Gamboa MD) Acute hypoxemic respiratory failure due to COVID-19 (Acute) Pulmonary edema (Acute) CHF (congestive heart failure) (Acute) Anemia (Acute) Patient is a 80-year-old gentleman with recent admission at [facility] for bilateral calcaneal fracture. Hospital stay was complicated by pulmonary emboli discharged on systemic anticoagulation presented to the emergency department with progressive shortness of breath suspect of acute hypoxic respiratory failure made. Subsequent COVID-19 assay came back positive 1. Acute hypoxic respiratory failure ?Secondary to COVID-19 pneumonia as well as acute on chronic CHF with preserved ejection fraction. Patient has been admitted to the intensive care unit. Patient managed on noninvasive ventilation with consultation placed to pulmonary medicine 2. Acute COVID-19 pneumonia ?Admitted to the intensive care unit patient managed with empiric antibiotics as well as Decadron. Patient already on systemic anticoagulation. Consult was placed to both infectious disease as well as pulmonary medicine 3. Severe sepsis secondary to patient's acute pneumonia ?Management as discussed above 4. Acute on chronic congestive heart failure with preserved ejection fraction ?Patient managed with fluid restriction as well as diuretics with Lasix. 2D echo ordered; results pending 5. Anemia - Secondary to chronic disorder monitoring H&H and transfuse if patient becomes symptomatic or hemoglobin falls below 7 6. Elevated cardiac enzymes ?Secondary to non-STEMI type II as a result of demand ischemia EKG did not reveal any acute ST?T changes 7. Recent diagnosis of pulmonary embolism -patient is on systemic anticoagulation with Eliquis did continue 8. Traumatic bilateral calcaneal fracture -Has bilateral lower extremity cast 9. Coronary artery disease -status post CABG 10. Heart disease ?Status post aortic valve replacement with bioprosthetic valve 11. Dyslipidemia ?Patient is on Crestor did continue 12. Paroxysmal A. fib ?Rate controlled on amiodarone; Patient on systemic anticoagulation with Eliquis 13. DVT prophylaxis ?Patient is on systemic anticoagulation with Eliquis Advance planning; did discuss with the patient and family regarding advanced directives as well as CODE STATUS. Did explain the various scenarios involved ( FULL CODE, DNR CCA, DNR CCA with no intubation, and DNR CC and what each meant) patient elected to full code with CPR and intubation if warranted. Order was placed. Time spent on discussion 18 minutes. Active Medications Acetaminophen (Acetaminophen 325 Mg Tablet) 650 mg PO Q6H PRN PRN PRN Reason: Pain Score 1-10/Temp > 100.7 F Last Admin: 05/15/20 20:44 Dose: 650 mg Documented by: Albuterol Sulfate (Albuterol Sulfate 8 Gm Inhaler (60 Puffs)) 2 puff INHALATION Q4H PRN PRN PRN Reason: Shortness of breath, wheezing Albuterol Sulfate (Albuterol Sulfate 8 Gm Inhaler (60 Puffs)) 1 puff INHALATION Q6HWA.RT [facility] Amiodarone HCl (Amiodarone 200 Mg Tablet) 200 mg PO DAILY [facility] Last Admin: 05/16/20 12:19 Dose: 200 mg Documented by: Apixaban (Apixaban 5 Mg Tablet) 5 mg PO BID [facility] Last Admin: 05/16/20 12:19 Dose: 5 mg Documented by: Aspirin (Aspirin E.C. 81 Mg Tablet) 81 mg PO DAILY@0800 [facility] Last Admin: 05/16/20 12:19 Dose: 81 mg Documented by: Calcium Acetate (Calcium Acetate 667 Mg Capsule) 667 mg PO DAILY [facility] Dexamethasone Sodium Phosphate (Dexamethasone 10 Mg/Ml Vial) 6 mg IV DAILY [facility] Last Admin: 05/16/20 12:17 Dose: 6 mg Documented by: Piperacillin Sod/Tazobactam (Sod 3.375 gm/ Sodium Chloride) 50 mls @ 12.5 mls/hr IV Q8 [facility] Last Infusion: 05/16/20 09:41 Dose: Infused Documented by: Metoprolol Tartrate (Metoprolol Tartrate 25 Mg Tablet) 25 mg PO DAILY [facility] Last Admin: 05/16/20 12:19 Dose: 25 mg Documented by: Ondansetron HCl (Ondansetron 4 Mg/2 Ml Vial) 4 mg IV Q8H PRN PRN PRN Reason: NAUSEA/VOMITING Oxycodone HCl (Oxycodone 5 Mg Tablet) 5 mg PO Q6H PRN PRN PRN Reason: Pain 1-10 or Fever Rosuvastatin Calcium (Rosuvastatin Calcium 10 Mg Tablet) 10 mg PO QHS [facility] Last Admin: 05/15/20 20:43 Dose: 10 mg Documented by: Senna/Docusate Sodium (Senna/Docusate Sodium 1 Tablet) 2 tablet PO BID PRN PRN Reason: Constipation Sodium Chloride (0.9% Saline Lock 10 Ml Syringe) 10 - 40 ml IV UD PRN PRN Reason: SALINE FLUSH Clinical Impression(s) from Imaging Studies Chest X-Ray 05/15/20 11:59 IMPRESSION: Severe congestive heart failure. Electronically Signed: Moe Elam MD at 12:54 EDT Tel , Service support , Inpatient E&M: 56903 Subs Hosp L3 Procedures: [id number] Advncd Care Plan 30 Min
[2020-05-16] MEDS: dexAMETHasone 10 MG/ML Vial 6 MG IV (12:17)
[2020-05-16] MEDS: Amiodarone 200 MG Tablet PO (12:19)
[2020-05-16] MEDS: Aspirin E.C. 81 MG Tablet PO (12:19)
[2020-05-16] MEDS: APIXABAN 5 MG TABLET PO ×2 (12:19→20:54)
[2020-05-16] MEDS: Metoprolol Tartrate 25 MG Tablet PO (12:19)
--- NOTE | 2020-05-16 14:26 | CON.PCM_ITS ---
Problem List (1) Acute hypoxemic respiratory failure due to COVID-19 Status: Acute Reason for Consult: bebo Consulted by: Dr. Vora History of Present Illness: The patient is a 80 year old M with h.o cabg, recent admit to [facility] with bilat calcaneal fracture complicated by PE. Came to ED with 1-2 days of weakness, fatigue, cough, dyspnea. No change in taste/smell. No n/v/d. Some aches. Came to ED, covid (+), admitted on dex, zosyn. Feeling worse today. Full ROS performed and neg except as noted above. - Medical History Past Medical History (Chronic Problems): Chronic Problems (Last Updated 05/15/20 @ 16:[address] 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 Darrion Meyer, [facility] [place] Atrial fibrillation (Chronic) Hypertension (Chronic) Dyslipidemia (Chronic) Atherosclerosis of coronary artery of [place] heart without angina pectoris (Chronic) Allergies/Adverse Reactions: Allergies atorvastatin Adverse Reaction (Verified 05/03/20 18:15) myalgias Home Medications: Ambulatory Orders Medication Instructions Recorded Multivitamin with Minerals 1 tab PO DAILY 07/16/19 [Multiple Vitamin] Acetaminophen [Tylenol Tablet] 650 mg PO Q6H PRN PRN tab 07/28/19 Aspirin [Aspir-Low] 81 mg PO DAILY@0800 #0 07/28/19 amiodarone 200 mg tablet 200 mg PO DAILY #90 tab 02/25/20 rosuvastatin 10 mg tablet 10 mg PO DAILY #90 tab 02/25/20 Metoprolol Tartrate 25 mg PO DAILY 05/03/20 Albuterol IH (ProAir) [Proair Hfa 2 puff INHALATION Q6H PRN PRN 05/15/20 (SP)Vent Pts] Apixaban [Eliquis] 5 mg PO BID 05/15/20 Calcium Acetate 667 mg PO DAILY 05/15/20 Cholecalciferol (VIT D3) [Vitamin 1,000 unit PO DAILY 05/15/20 D] Fluticasone Propion/Salmeterol 1 ea IH BID 05/15/20 [Fluticasone-Salmeterol 250-50] Loratadine 10 mg PO DAILY 05/15/20 Oxycodone [Oxyir] 5 mg PO Q6H PRN PRN 05/15/20 Prednisone 10 mg PO 05/15/20 - Social History SMOKING STATUS:: Former smoker Vital Signs Temp Pulse Resp BP Pulse Ox 97.8 F 67 17 108/66 97 05/16/20 12:00 05/16/20 13:30 05/16/20 13:30 05/16/20 12:19 05/16/20 13:30 Oxygen Flow Rate (L/min) 60 Oxygen Delivery Method Airvo Weight: 71.4 kg Body Mass Index (BMI) 24.5 Laboratory Tests Past 24 Hrs 05/15/20 05/15/20 05/15/20 11:55 11:55 12:40 WBC RBC Hgb Hct MCV MCH MCHC RDW Std Deviation RDW Coeff of Jeanne Plt Count MPV Immature Gran % (Auto) Neut % (Auto) Lymph % (Auto) [place] % (Auto) Eos % (Auto) Baso % (Auto) Absolute Neuts (auto) Absolute Lymphs (auto) Nucleated RBC % PT INR Fibrinogen 819 H D-Dimer Quant (PE/DVT) 1.24 H* Sodium Potassium Chloride Carbon Dioxide Anion Gap BUN Creatinine Estim Creat Clear Calc Est GFR (MDRD) Af Amer Est GFR (MDRD) Non-Af BUN/Creatinine Ratio Glucose Lactic Acid Calcium Total Bilirubin AST ALT Alkaline Phosphatase Lactate Dehydrogenase 473 H Troponin I C-React Prot Ext Range 261.00 H Total Protein Albumin Globulin Albumin/Globulin Ratio Procalcitonin COVID-19 (ADRI) Detected 05/15/20 05/15/20 05/15/20 17:00 17:00 17:50 WBC RBC Hgb Hct MCV MCH MCHC RDW Std Deviation RDW Coeff of Jeanne Plt Count MPV Immature Gran % (Auto) Neut % (Auto) Lymph % (Auto) [place] % (Auto) Eos % (Auto) Baso % (Auto) Absolute Neuts (auto) Absolute Lymphs (auto) Nucleated RBC % PT INR Fibrinogen D-Dimer Quant (PE/DVT) Sodium Potassium Chloride Carbon Dioxide Anion Gap BUN Creatinine Estim Creat Clear Calc Est GFR (MDRD) Af Amer Est GFR (MDRD) Non-Af BUN/Creatinine Ratio Glucose Lactic Acid 2.3 H* Calcium Total Bilirubin AST ALT Alkaline Phosphatase Lactate Dehydrogenase Troponin I 0.109 H C-React Prot Ext Range Total Protein Albumin Globulin Albumin/Globulin Ratio Procalcitonin 5.84 H COVID-19 (ADRI) 05/15/20 05/15/20 05/16/20 20:45 23:30 04:00 WBC 17.0 H RBC 2.71 L Hgb 8.6 L Hct 27.1 L MCV 100.0 H MCH 31.7 MCHC 31.7 L RDW Std Deviation 55.1 H RDW Coeff of Jeanne 14.8 H Plt Count 310 MPV 9.1 Immature Gran % (Auto) 2.000 H Neut % (Auto) 92.7 H Lymph % (Auto) 3.7 L [place] % (Auto) 0.9 Eos % (Auto) 0.5 Baso % (Auto) 0.2 Absolute Neuts (auto) 15.8 H Absolute Lymphs (auto) 0.63 L Nucleated RBC % 0.1 PT INR Fibrinogen D-Dimer Quant (PE/DVT) Sodium Potassium Chloride Carbon Dioxide Anion Gap BUN Creatinine Estim Creat Clear Calc Est GFR (MDRD) Af Amer Est GFR (MDRD) Non-Af BUN/Creatinine Ratio Glucose Lactic Acid Calcium Total Bilirubin AST ALT Alkaline Phosphatase Lactate Dehydrogenase Troponin I 0.108 H 0.099 H C-React Prot Ext Range Total Protein Albumin Globulin Albumin/Globulin Ratio Procalcitonin COVID-19 (ADRI) 05/16/20 05/16/20 04:00 04:00 WBC RBC Hgb Hct MCV MCH MCHC RDW Std Deviation RDW Coeff of Jeanne Plt Count MPV Immature Gran % (Auto) Neut % (Auto) Lymph % (Auto) [place] % (Auto) Eos % (Auto) Baso % (Auto) Absolute Neuts (auto) Absolute Lymphs (auto) Nucleated RBC % PT 26.8 H INR 2.5 Fibrinogen D-Dimer Quant (PE/DVT) Sodium 137 Potassium 4.2 Chloride 103 Carbon Dioxide 26.0 Anion Gap 8 BUN 41 H Creatinine 1.85 H Estim Creat Clear Calc 30.27 Est GFR (MDRD) Af Amer 46 L Est GFR (MDRD) Non-Af 38 L BUN/Creatinine Ratio 22.2 H Glucose 105 Lactic Acid Calcium 8.0 L Total Bilirubin 1.00 AST 49 H ALT 77 H Alkaline Phosphatase 77 Lactate Dehydrogenase Troponin I C-React Prot Ext Range Total Protein 6.4 Albumin 2.1 L Globulin 4.3 H Albumin/Globulin Ratio 0.5 L Procalcitonin COVID-19 (ADRI) - Other Studies Radiology: [] reviewed Other Studies: [] Route of nutrition/ use of supplements: [] Nutritional Intake: [] IV Site: [] Barkley Catheter: [] - Physical Exam General: Alert, Oriented x3, Cooperative HEENT: Atraumatic, PERRLA, EOMI Neck: Supple, No Nodes Lungs: Diminished Cardiovascular: Regular rate, Regular Rhythm Abdomen: Soft, Non Tender, Non-Distended Extremities: No edema Skin: - - BLE in casts IV Site: Peripheral, without redness Musculoskeletal: No Tenderness to Palpation of Joints or Extremities Neurological: Cranial nerves II-XII grossly intact - Assessment/Plan Antibiotics: [] Assessment/Plan: [] Active and Suspected Problems (Last Updated 05/15/20 @ 16:[address] Carlene Gamboa MD) Acute hypoxemic respiratory failure due to COVID-19 (Acute) Pulmonary edema (Acute) CHF (congestive heart failure) (Acute) Anemia (Acute) On dex. Reviewed EUA and risk/benefit of remdesivir and convalescent plasma. He consents, will start. On zosyn. Had high PCT, neg cxs so far, low suspicion for bacterial infection. Likely can stop soon. Thank you, will follow, d/w nursingPatient or caregiver was given a copy of the Remdesivir Fact Sheet for Patients and Parents/Caregivers. The following information was communicated to the patient or caregiver: Remdesivir is not an FDA approved drug. The FDA has authorized the emergency use of Remdesivir. The patient had the option to refuse or accept treatment with Remdesivir. The patient was informed that the number of people treated with Remdesivir is small at this time. The potential benefits and potential risks of Remdesivir are not fully known. Potential benefits of Remdesivir include a shorter time to recovery of COVID-19 infection. Potential risks or side effects of Remdesivir include sweating, shivering, nausea and vomiting or low blood pressure related to a reaction to the medication infusion and increases in liver enzymes. No drugs are approved by the FDA to treat COVID-19 at this time. 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
[2020-05-16] MEDS: 0.9% Saline Lock 10 ML Syringe IV (15:36)
--- NOTE | 2020-05-16 16:15 | CASEMGMT ---
RN CM ASSESSMENT Pt COVID-19 positive and in isolation precautions. Pt currently on Airvo. Call placed to pt's , Lilian, and assessment completed w/her on the phone. Care providers, pharmacy, and demographics verified/updated at this time. PCP: Dr Curtis Specialists: GENESIS, Dr Bolivar-pulmonology Preferred Pharmacy:[facility] Retail Insurance:AA Prescription Benefit: none LNOK:, Lilian. 5 daughters. 2 sons Living Arrangements: Lives w/ in 2-story home w/ramp entrance. There are 3 bathrooms in the home. helps to care for pt, as he has bilat calcaneal fractures and was just recently d/c'd home from [facility]. Up until recent illness, pt had enough strength to transfer himself from recliner to W/C but she is not sure if he will be strong enough to do this when he returns home. states they may need a transfer lift @ discharge. She has used one in the past when caring for her late mother and is familiar with them. Son lives with them and able to help and daughter lives on property and able to help as needed. states she has not been ill/no symptoms of COVID. Reviewed home isolation precautions w/. She was made aware she/pt/son/daughter should all self-quarantine for 14 days. They are able to self-isolate. helps care for pt and reviewed importance of everyone wearing a mask while in direct contact with pt and to limit close contact when possible. Advised to not share same bedroom and to use separate bathrooms. Other kids or neighbors will be able to bring groceries/supplies/medications as needed. Pt has enough medications for 2 weeks. Transportation: family. thinks grandson will be able to take pt home @ discharge. DME: states has the following DME: shower chair, BSC, walker, W/C. Has O2 @ 2 L/M but does not remember name of DME provider. As stated above, states they may need a transfer/[facility] lift. She was provided w/[facility] contact info and is going to contact them to inquire if they have one available, if needed. HHC/SNF: Hx of [place]. No hx of HHC. wish for pt to return home and states has no concerns with going home at time of discharge. She feels she/family will be able to continue to assist/care for pt in the home. CM to follow for home oxygen needs and any further discharge planning/needs. voices no further concerns/needs at this time. Advised her to ask for CM if any further questions/concerns/needs arise. Voices understanding. PLAN: Home w/family and discharge plans in place. states they may need a transfer/[facility] lift. She was provided with [facility] contact info and is going to contact them to inquire if they have a transfer lift available, if needed. PT/OT evals pending. Pt has home O2 @ 2 L/M. unsure of name of DME provider. Follow for any increased oxygen needs at discharge. Follow for anti-coag @ d/c/. Wilmar HUBBARD RN CM
[2020-05-16] MEDS: Ipratropium/Albuterol Sulfate 3 ML AMPUL.NEB INHALATION (19:04)
[2020-05-17] VITALS (34 sets, daily range): BP systolic 100–138; BP diastolic 51–76; PULSE 63–75; RESP 12–29; TEMP 36.3–36.9; O2SAT 88–98
[2020-05-17 04:13] LABS: Hemoglobin 8.2 g/dL (13.0-16.5); Mean Corp Hgb Conc 31.5 g/dL (32-36); Mean Corpuscular Hgb 31.4 pg (27.0-32.0); Mean Corpuscular Volume 99.6 fL (80-94); Mean Platelet Vol. 9.3 fl (6.2-12.0); Platelet Count 305 K/mm3 (150-450); RBC Distribution Width CV 14.7 % (11.6-14.6); RBC Distribution Width SD 53.6 fl (35.1-43.9); Red Blood Count 2.61 M/mm3 (4.6-6.2); White Blood Count 15.1 K/mm3 (4.4-11.0)
[2020-05-17 05:58] LABS: ALB/GLOB Ratio 0.4 RATIO (0.9-2.4); AST(SGOT) 56 U/L (15-37); Alanine Aminotransfer ALT/SGPT 72 U/L (16-61); Albumin, Serum 1.9 g/dL (3.2-5.0); Alkaline Phosphatase 75 U/L (45-117); Anion Gap 5 (5-15); BUN 45 mg/dL (7-18); BUN/Creat Ratio 30.6 RATIO (10-20); Calcium,Total 7.9 mg/dL (8.5-10.1); Chloride 104 mmol/L (98-107); Creatinine, Serum 1.47 mg/dL (0.70-1.30); EST Glomerular Filtration Rate 49 mL/min (>60); Est Glom Filt Rate - Afr Amer 59 mL/min (>60); Globulin 4.3 g/dL (2.2-4.2); Glucose 111 mg/dL (74-106); Potassium 4.1 mmol/L (3.5-5.1); Protein, Total 6.2 g/dL (6.4-8.2); Sodium Level 138 mmol/L (136-145)
--- NOTE | 2020-05-17 06:10 | PCM.PN.INT ---
Subjective: The patient was seen and examined at the bedside this morning. Events from the last 24 hours have been reviewed. The patient is currently afebrile, hemodynamically stable and maintaining appropriate oxygen saturations on BiPAP with an FiO2 requirement of 70%. The patient remains on Eliquis, scheduled Decadron, Zosyn and was started on remdesivir. He is currently awaiting transfusion of convalescent plasma. The patient did not tolerate breaks from BiPAP on Airvo. Objective: The patient's most recent lab work, culture data and imaging studies have all been personally reviewed. Surface echocardiogram revealed moderate concentric LVH with an ejection fraction of 65 to 75%. Diastolic dysfunction was noted along with a right ventricular systolic pressure estimated to be 40 mmHg. Coronavirus PCR was positive on May 15. Blood and urine cultures are pending. General: Alert, Cooperative, - - Ill in appearance. BiPAP mask in place. HEENT: Atraumatic, Normocephalic Oral: Dry Mucosa Neck: Supple, No Nodes, Trachea Midline Lungs: No rhonchi, No wheeze, No rales, Diminished, Tachypneic Cardiovascular: Regular rate, Regular Rhythm Abdomen: Bowel Sounds Present, Soft, Non Tender, Non-Distended Extremities: No clubbing, No cyanosis, No edema, - - Lower extremity casts in place Skin: - - No significant change from previous. Musculoskeletal: No Muscle Wasting Lymphatic: No Cervical, Supraclavicular, or Inguinal Adenopathy Neurological: Cranial nerves II-XII grossly intact, Neuro grossly intact Psych/Mental Status: Flat Affect Vital Signs Temp Pulse Resp BP Pulse Ox 97.9 F 69 28 H 102/55 L 95 05/17/20 04:00 05/17/20 05:00 05/17/20 05:00 05/17/20 05:00 05/17/20 05:00 Oxygen Flow Rate (L/min) 60 Oxygen Delivery Method Bi-pap Weight: 149 lb 7.574 oz Body Mass Index (BMI) 24.5 Intake and Output for Last 24 Hours 05/15/20 05/16/20 05/17/20 23:59 23:59 23:59 Intake Total 658.5 / 658.5 1850 / 1950 200 / 200 Output Total 1400 / 1700 1850 / 0 575 / 575 Balance -741.5 / -1041.5 0 / -100 -375 / -375 Labs (Last 48 Hours) 05/15/20 05/15/20 05/15/20 11:55 11:55 11:55 WBC 19.9 H RBC 2.71 L Hgb 8.6 L Hct 27.1 L MCV 100.0 H MCH 31.7 MCHC 31.7 L RDW Std Deviation 52.7 H RDW Coeff of Jeanne 14.6 Plt Count 319 MPV 9.0 Immature Gran % (Auto) 2.000 H Neut % (Auto) 93.6 H Lymph % (Auto) 2.3 L [place] % (Auto) 1.2 Eos % (Auto) 0.7 Baso % (Auto) 0.2 Absolute Neuts (auto) 18.7 H Absolute Lymphs (auto) 0.45 L Nucleated RBC % 0.1 Platelet Estimate ADEQUATE Hypochromasia 1+ Schistocytes RARE PT 27.0 H INR 2.6 APTT 43.1 H Fibrinogen D-Dimer Quant (PE/DVT) Specimen Type Sample Site VBG pH VBG pO2 VBG HCO3 VBG O2 Sat (Calc) VBG Base Excess POC Mix VBG pCO2 Pt Tmp O2 Delivery Device Sodium 134 L Potassium 4.1 Chloride 102 Carbon Dioxide 25.0 POC Venous Total CO2 Anion Gap 7 BUN 38 H Creatinine 1.59 H Estim Creat Clear Calc 37.67 Est GFR (MDRD) Af Amer 54 L Est GFR (MDRD) Non-Af 45 L BUN/Creatinine Ratio 23.9 H Glucose 123 H Lactic Acid Calcium 7.8 L Magnesium 2.5 Total Bilirubin 1.10 H AST 56 H ALT 92 H Alkaline Phosphatase 85 Lactate Dehydrogenase Troponin I 0.104 H C-React Prot Ext Range B-Natriuretic Peptide Total Protein 6.4 Albumin 2.3 L Globulin 4.1 Albumin/Globulin Ratio 0.6 L Procalcitonin Urine Color Urine Clarity Urine pH Ur Specific [place] Urine Protein Urine Glucose (UA) Urine Ketones Urine Occult Blood Urine Nitrite Urine Bilirubin Urine Urobilinogen Ur Leukocyte Esterase Urine RBC Urine WBC Ur Squamous Epith Cells Urine Bacteria Urine Mucus COVID-19 (ADRI) Blood Type 05/15/20 05/15/20 05/15/20 11:55 11:55 11:55 WBC RBC Hgb Hct MCV MCH MCHC RDW Std Deviation RDW Coeff of Jeanne Plt Count MPV Immature Gran % (Auto) Neut % (Auto) Lymph % (Auto) [place] % (Auto) Eos % (Auto) Baso % (Auto) Absolute Neuts (auto) Absolute Lymphs (auto) Nucleated RBC % Platelet Estimate Hypochromasia Schistocytes PT INR APTT Fibrinogen 819 H D-Dimer Quant (PE/DVT) 1.24 H* Specimen Type Sample Site VBG pH VBG pO2 VBG HCO3 VBG O2 Sat (Calc) VBG Base Excess POC Mix VBG pCO2 Pt Tmp O2 Delivery Device Sodium Potassium Chloride Carbon Dioxide POC Venous Total CO2 Anion Gap BUN Creatinine Estim Creat Clear Calc Est GFR (MDRD) Af Amer Est GFR (MDRD) Non-Af BUN/Creatinine Ratio Glucose Lactic Acid 2.5 H* Calcium Magnesium Total Bilirubin AST ALT Alkaline Phosphatase Lactate Dehydrogenase Troponin I C-React Prot Ext Range B-Natriuretic Peptide 644.0 H Total Protein Albumin Globulin Albumin/Globulin Ratio Procalcitonin Urine Color Urine Clarity Urine pH Ur Specific [place] Urine Protein Urine Glucose (UA) Urine Ketones Urine Occult Blood Urine Nitrite Urine Bilirubin Urine Urobilinogen Ur Leukocyte Esterase Urine RBC Urine WBC Ur Squamous Epith Cells Urine Bacteria Urine Mucus COVID-19 (ADRI) Blood Type 05/15/20 05/15/20 05/15/20 11:55 12:32 12:40 WBC RBC Hgb Hct MCV MCH MCHC RDW Std Deviation RDW Coeff of Ejanne Plt Count MPV Immature Gran % (Auto) Neut % (Auto) Lymph % (Auto) [place] % (Auto) Eos % (Auto) Baso % (Auto) Absolute Neuts (auto) Absolute Lymphs (auto) Nucleated RBC % Platelet Estimate Hypochromasia Schistocytes PT INR APTT Fibrinogen D-Dimer Quant (PE/DVT) Specimen Type MADINA Sample Site R Brach VBG pH 7.45 H VBG pO2 26 VBG HCO3 22 VBG O2 Sat (Calc) 51 VBG Base Excess -2 L POC Mix VBG pCO2 Pt Tmp 32.0 L O2 Delivery Device BiPAP Sodium Potassium Chloride Carbon Dioxide POC Venous Total CO2 23 Anion Gap BUN Creatinine Estim Creat Clear Calc Est GFR (MDRD) Af Amer Est GFR (MDRD) Non-Af BUN/Creatinine Ratio Glucose Lactic Acid Calcium Magnesium Total Bilirubin AST ALT Alkaline Phosphatase Lactate Dehydrogenase 473 H Troponin I C-React Prot Ext Range 261.00 H B-Natriuretic Peptide Total Protein Albumin Globulin Albumin/Globulin Ratio Procalcitonin Urine Color Urine Clarity Urine pH Ur Specific [place] Urine Protein Urine Glucose (UA) Urine Ketones Urine Occult Blood Urine Nitrite Urine Bilirubin Urine Urobilinogen Ur Leukocyte Esterase Urine RBC Urine WBC Ur Squamous Epith Cells Urine Bacteria Urine Mucus COVID-19 (ADRI) Detected Blood Type 05/15/20 05/15/20 05/15/20 12:45 17:00 17:00 WBC RBC Hgb Hct MCV MCH MCHC RDW Std Deviation RDW Coeff of Jeanne Plt Count MPV Immature Gran % (Auto) Neut % (Auto) Lymph % (Auto) [place] % (Auto) Eos % (Auto) Baso % (Auto) Absolute Neuts (auto) Absolute Lymphs (auto) Nucleated RBC % Platelet Estimate Hypochromasia Schistocytes PT INR APTT Fibrinogen D-Dimer Quant (PE/DVT) Specimen Type Sample Site VBG pH VBG pO2 VBG HCO3 VBG O2 Sat (Calc) VBG Base Excess POC Mix VBG pCO2 Pt Tmp O2 Delivery Device Sodium Potassium Chloride Carbon Dioxide POC Venous Total CO2 Anion Gap BUN Creatinine Estim Creat Clear Calc Est GFR (MDRD) Af Amer Est GFR (MDRD) Non-Af BUN/Creatinine Ratio Glucose Lactic Acid 2.3 H* Calcium Magnesium Total Bilirubin AST ALT Alkaline Phosphatase Lactate Dehydrogenase Troponin I C-React Prot Ext Range B-Natriuretic Peptide Total Protein Albumin Globulin Albumin/Globulin Ratio Procalcitonin 5.84 H Urine Color Yellow Urine Clarity Sl. Cloudy Urine pH 5.0 Ur Specific [place] 1.020 Urine Protein 30 H Urine Glucose (UA) Normal Urine Ketones Negative Urine Occult Blood 25 H Urine Nitrite Negative Urine Bilirubin Negative Urine Urobilinogen 1 H Ur Leukocyte Esterase 25 H Urine RBC 0 SEEN Urine WBC 0 SEEN Ur Squamous Epith Cells 0-5 SEEN Urine Bacteria 1+ Urine Mucus 0 SEEN COVID-19 (ADRI) Blood Type 05/15/20 05/15/20 05/15/20 17:50 20:45 23:30 WBC RBC Hgb Hct MCV MCH MCHC RDW Std Deviation RDW Coeff of Jeanne Plt Count MPV Immature Gran % (Auto) Neut % (Auto) Lymph % (Auto) [place] % (Auto) Eos % (Auto) Baso % (Auto) Absolute Neuts (auto) Absolute Lymphs (auto) Nucleated RBC % Platelet Estimate Hypochromasia Schistocytes PT INR APTT Fibrinogen D-Dimer Quant (PE/DVT) Specimen Type Sample Site VBG pH VBG pO2 VBG HCO3 VBG O2 Sat (Calc) VBG Base Excess POC Mix VBG pCO2 Pt Tmp O2 Delivery Device Sodium Potassium Chloride Carbon Dioxide POC Venous Total CO2 Anion Gap BUN Creatinine Estim Creat Clear Calc Est GFR (MDRD) Af Amer Est GFR (MDRD) Non-Af BUN/Creatinine Ratio Glucose Lactic Acid Calcium Magnesium Total Bilirubin AST ALT Alkaline Phosphatase Lactate Dehydrogenase Troponin I 0.109 H 0.108 H 0.099 H C-React Prot Ext Range B-Natriuretic Peptide Total Protein Albumin Globulin Albumin/Globulin Ratio Procalcitonin Urine Color Urine Clarity Urine pH Ur Specific [place] Urine Protein Urine Glucose (UA) Urine Ketones Urine Occult Blood Urine Nitrite Urine Bilirubin Urine Urobilinogen Ur Leukocyte Esterase Urine RBC Urine WBC Ur Squamous Epith Cells Urine Bacteria Urine Mucus COVID-19 (ADRI) Blood Type 05/16/20 05/16/20 05/16/20 04:00 04:00 04:00 WBC 17.0 H RBC 2.71 L Hgb 8.6 L Hct 27.1 L MCV 100.0 H MCH 31.7 MCHC 31.7 L RDW Std Deviation 55.1 H RDW Coeff of Jeanne 14.8 H Plt Count 310 MPV 9.1 Immature Gran % (Auto) 2.000 H Neut % (Auto) 92.7 H Lymph % (Auto) 3.7 L [place] % (Auto) 0.9 Eos % (Auto) 0.5 Baso % (Auto) 0.2 Absolute Neuts (auto) 15.8 H Absolute Lymphs (auto) 0.63 L Nucleated RBC % 0.1 Platelet Estimate Hypochromasia Schistocytes PT 26.8 H INR 2.5 APTT Fibrinogen D-Dimer Quant (PE/DVT) Specimen Type Sample Site VBG pH VBG pO2 VBG HCO3 VBG O2 Sat (Calc) VBG Base Excess POC Mix VBG pCO2 Pt Tmp O2 Delivery Device Sodium 137 Potassium 4.2 Chloride 103 Carbon Dioxide 26.0 POC Venous Total CO2 Anion Gap 8 BUN 41 H Creatinine 1.85 H Estim Creat Clear Calc 30.27 Est GFR (MDRD) Af Amer 46 L Est GFR (MDRD) Non-Af 38 L BUN/Creatinine Ratio 22.2 H Glucose 105 Lactic Acid Calcium 8.0 L Magnesium Total Bilirubin 1.00 AST 49 H ALT 77 H Alkaline Phosphatase 77 Lactate Dehydrogenase Troponin I C-React Prot Ext Range B-Natriuretic Peptide Total Protein 6.4 Albumin 2.1 L Globulin 4.3 H Albumin/Globulin Ratio 0.5 L Procalcitonin Urine Color Urine Clarity Urine pH Ur Specific [place] Urine Protein Urine Glucose (UA) Urine Ketones Urine Occult Blood Urine Nitrite Urine Bilirubin Urine Urobilinogen Ur Leukocyte Esterase Urine RBC Urine WBC Ur Squamous Epith Cells Urine Bacteria Urine Mucus COVID-19 (ADRI) Blood Type 05/16/20 05/17/20 05/17/20 15:30 04:05 05:30 WBC 15.1 H RBC 2.61 L Hgb 8.2 L Hct 26.0 L MCV 99.6 H MCH 31.4 MCHC 31.5 L RDW Std Deviation 53.6 H RDW Coeff of Jeanne 14.7 H Plt Count 305 MPV 9.3 Immature Gran % (Auto) Neut % (Auto) Lymph % (Auto) [place] % (Auto) Eos % (Auto) Baso % (Auto) Absolute Neuts (auto) Absolute Lymphs (auto) Nucleated RBC % Platelet Estimate Hypochromasia Schistocytes PT INR APTT Fibrinogen D-Dimer Quant (PE/DVT) Specimen Type Sample Site VBG pH VBG pO2 VBG HCO3 VBG O2 Sat (Calc) VBG Base Excess POC Mix VBG pCO2 Pt Tmp O2 Delivery Device Sodium 138 Potassium 4.1 Chloride 104 Carbon Dioxide 29.0 POC Venous Total CO2 Anion Gap 5 BUN 45 H Creatinine 1.47 H Estim Creat Clear Calc 38.10 Est GFR (MDRD) Af Amer 59 L Est GFR (MDRD) Non-Af 49 L BUN/Creatinine Ratio 30.6 H Glucose 111 H Lactic Acid Calcium 7.9 L Magnesium Total Bilirubin 0.90 AST 56 H ALT 72 H Alkaline Phosphatase 75 Lactate Dehydrogenase Troponin I C-React Prot Ext Range B-Natriuretic Peptide Total Protein 6.2 L Albumin 1.9 L Globulin 4.3 H Albumin/Globulin Ratio 0.4 L Procalcitonin Urine Color Urine Clarity Urine pH Ur Specific [place] Urine Protein Urine Glucose (UA) Urine Ketones Urine Occult Blood Urine Nitrite Urine Bilirubin Urine Urobilinogen Ur Leukocyte Esterase Urine RBC Urine WBC Ur Squamous Epith Cells Urine Bacteria Urine Mucus COVID-19 (ADRI) Blood Type A POSITIVE Clinical Impression(s) from Imaging Studies Chest X-Ray 05/15/20 11:59 IMPRESSION: Severe congestive heart failure. Electronically Signed: Moe Elam MD at 12:54 EDT Tel , Service support , Medical Necessity - Tobacco Use Smoking Status: Former smoker Tobacco Use: Non-smoker Assessment/Plan All Active Problems (Last Updated 05/15/20 @ 16:[address] Carlene Gamboa MD) Acute hypoxemic respiratory failure due to COVID-19 (Acute) Pulmonary edema (Acute) CHF (congestive heart failure) (Acute) Anemia (Acute) RECOMMENDATIONS: 1. Continue scheduled bronchodilator therapy. 2. Continue BiPAP therapy and wean as tolerated. 3. Titrate FiO2 to maintain oxygen saturations at or above 90%. 4. Continue systemic anticoagulation with Eliquis. 5. Continue scheduled Decadron. 6. Continue remdesivir and administer convalescent plasma as ordered. 7. Okay to continue empiric antimicrobials for now. IMPRESSIONS: 1. Acute hypoxemic respiratory failure secondary to Covid pneumonia Continue current supportive measures including noninvasive positive pressure ventilatory support, with plans to transition the patient to Airvo heated high flow as tolerated. Goal to wean FiO2 to maintain oxygen saturations at or above 90%. The patient is already systemically anticoagulated on Eliquis, which will be continued. Continue Decadron, with plans to complete a 10-day treatment course. Given the tenuous nature of the patient's respiratory status, recommend continuing remdesivir and administering convalescent plasma today. Infectious diseases is following. 2. Recent diagnosis of pulmonary embolism The patient was recently diagnosed with pulmonary emboli at an outside institution last week. Accordingly, systemic anticoagulation will be continued. 3. Severe sepsis secondary to Covid pneumonia As noted above, we will plan to continue empiric antimicrobials, should there be a superimposed component of bacterial pneumonia present as well. Covid supportive measures will be continued as noted above. The patient remains hemodynamically stable. 4. History of diastolic dysfunction/pulmonary hypertension/coronary artery disease status post CABG Hold on additional diuresis, given underlying renal insufficiency. Continue outpatient cardiac regimen. 5. Self-reported history of asthma The patient will be continued on scheduled bronchodilator therapy. Continue supportive measures as noted above. 6. Anemia/chronic kidney disease/history of atrial fibrillation/hyperlipidemia/advanced age Complicates care, management, recovery and prognosis. Continue home medications as indicated. Physical therapy evaluation once medically stabilized. TIME: 38 minutes of critical care time, independent of procedures, was spent addressing the patient's acute hypoxemic respiratory failure secondary to Covid pneumonia, recent diagnosis of pulmonary embolism, severe sepsis secondary to Covid pneumonia, history of heart failure with preserved ejection fraction, self-reported history of asthma, review of all data and collaboration with the care team. [id number]) [phone]: [id number] Critical care first hour
--- NOTE | 2020-05-17 07:30 | PCM.PN.HOSP ---
Patient Problems: Active and Suspected Problems (Last Updated 05/15/20 @ 16:[address] Carlene Gamboa MD) Acute hypoxemic respiratory failure due to COVID-19 (Acute) Pulmonary edema (Acute) CHF (congestive heart failure) (Acute) Anemia (Acute) Reason for Visit: Covid 19 pneumonia Subjective: Patient seen in the ICU. Patient remains on noninvasive ventilation BiPAP. Patient did consent to remdesivir use. Also scheduled to receive convalescent plasma Objective: GENERAL: On BiPAP HEENT: Atraumatic; EYES; Anicteric, Normal Conjunctiva NECK; supple, normal thyroid, RESPIRATORY: Diminished to auscultation CARDIOVASCULAR: Regular S1 S2, GI: soft, normoactive bowel sounds, : No Renal angle tenderness; EXTREMITIES: Lower extremities in MUSCULOSKELETAL: no muscle waisting NEURO: Awake; no lateralizing signs. SKIN: No Rash PSYCH; Flat affect Vitals/I&O's: Vital Signs Temp Pulse Resp BP Pulse Ox 97.9 F 65 22 H 138/58 H 91 05/17/20 04:00 05/17/20 07:00 05/17/20 07:00 05/17/20 07:00 05/17/20 07:00 Oxygen Flow Rate (L/min) 60 Oxygen Delivery Method Bi-pap Weight: 67.8 kg Body Mass Index (BMI) 24.5 Intake and Output for Last 24 Hours 05/15/20 05/16/20 05/17/20 23:59 23:59 23:59 Intake Total 658.5 / 658.5 1850 / 1950 450 / 450 Output Total 1400 / 1700 185 / 0 925 / 925 Balance -741.5 / -1041.5 0 / -100 -475 / -475 Laboratory Results 05/16/20 15:30: Blood Type A POSITIVE 05/17/20 04:05: WBC 15.1 H, RBC 2.61 L, Hgb 8.2 L, Hct 26.0 L, MCV 99.6 H, MCH 31.4, MCHC 31.5 L, RDW Std Deviation 53.6 H, RDW Coeff of Jeanne 14.7 H, Plt Count 305, MPV 9.3 05/17/20 05:30: Sodium 138, Potassium 4.1, Chloride 104, Carbon Dioxide 29.0, Anion Gap 5, BUN 45 H, Creatinine 1.47 H, Estim Creat Clear Calc 38.10, Est GFR (MDRD) Af Amer 59 L, Est GFR (MDRD) Non-Af 49 L, BUN/Creatinine Ratio 30.6 H, Glucose 111 H, Calcium 7.9 L, Total Bilirubin 0.90, AST 56 H, ALT 72 H, Alkaline Phosphatase 75, Total Protein 6.2 L, Albumin 1.9 L, Globulin 4.3 H, Albumin/Globulin Ratio 0.4 L Current Medications Acetaminophen (Acetaminophen 325 Mg Tablet) 650 mg PO Q6H PRN PRN PRN Reason: Pain Score 1-10/Temp > 100.7 F Last Admin: 05/15/20 20:44 Dose: 650 mg Documented by: Albuterol Sulfate (Albuterol Sulfate 8 Gm Inhaler (60 Puffs)) 2 puff INHALATION Q4H PRN PRN PRN Reason: Shortness of breath, wheezing Albuterol Sulfate (Albuterol Sulfate 8 Gm Inhaler (60 Puffs)) 1 puff INHALATION Q6HWA.RT GIANNA Albuterol/Ipratropium (Ipratropium/Albuterol Sulfate 3 Ml Ampul.Neb) 3 ml INHALATION Q4HWA.RT [facility] Last Admin: 05/16/20 19:04 Dose: 3 ml Documented by: Amiodarone HCl (Amiodarone 200 Mg Tablet) 200 mg PO DAILY [facility] Last Admin: 05/16/20 12:19 Dose: 200 mg Documented by: Apixaban (Apixaban 5 Mg Tablet) 5 mg PO BID [facility] Last Admin: 05/16/20 20:54 Dose: 5 mg Documented by: Aspirin (Aspirin E.C. 81 Mg Tablet) 81 mg PO DAILY@0800 [facility] Last Admin: 05/16/20 12:19 Dose: 81 mg Documented by: Calcium Acetate (Calcium Acetate 667 Mg Capsule) 667 mg PO TIDCM [facility] Last Admin: 05/16/20 17:25 Dose: Not Given Documented by: Dexamethasone Sodium Phosphate (Dexamethasone 10 Mg/Ml Vial) 6 mg IV DAILY [facility] Last Admin: 05/16/20 12:17 Dose: 6 mg Documented by: Piperacillin Sod/Tazobactam (Sod 3.375 gm/ Sodium Chloride) 50 mls @ 12.5 mls/hr IV Q8 [facility] Last Admin: 05/17/20 05:31 Dose: 12.5 mls/hr Documented by: Remdesivir (Investigational) (100 mg/ Sodium Chloride) 250 mls @ 125 mls/hr IV DAILY [facility]; Protocol Stop: 05/20/20 11:59 Metoprolol Tartrate (Metoprolol Tartrate 25 Mg Tablet) 25 mg PO DAILY [facility] Last Admin: 05/16/20 12:19 Dose: 25 mg Documented by: Ondansetron HCl (Ondansetron 4 Mg/2 Ml Vial) 4 mg IV Q8H PRN PRN PRN Reason: NAUSEA/VOMITING Oxycodone HCl (Oxycodone 5 Mg Tablet) 5 mg PO Q6H PRN PRN PRN Reason: Pain 1-10 or Fever Rosuvastatin Calcium (Rosuvastatin Calcium 10 Mg Tablet) 10 mg PO QHS [facility] Last Admin: 05/16/20 20:54 Dose: 10 mg Documented by: Senna/Docusate Sodium (Senna/Docusate Sodium 1 Tablet) 2 tablet PO BID PRN PRN Reason: Constipation Sodium Chloride (0.9% Saline Lock 10 Ml Syringe) 10 - 40 ml IV UD PRN PRN Reason: SALINE FLUSH Last Admin: 05/16/20 15:36 Dose: 10 ml Documented by: Sodium Chloride (0.9% Saline Lock 10 Ml Syringe) 10 - 40 ml IV UD PRN PRN Reason: SALINE FLUSH STROKE Vital Signs/Narrative: Vital Signs Temp Pulse Resp BP Pulse Ox 05/17/20 07:00 65 22 H 138/58 H 91 05/17/20 06:00 66 24 H 128/55 H 90 05/17/20 05:00 69 28 H 102/55 L 95 05/17/20 04:25 72 29 H 95 05/17/20 04:00 97.9 F 68 27 H 104/56 L 93 Medical Necessity - Tobacco Use Smoking Status: Former smoker Tobacco Use: Non-smoker Assessment/Plan All Active Problems (Last Updated 05/15/20 @ 16:[address] Carlene Gamboa MD) Acute hypoxemic respiratory failure due to COVID-19 (Acute) Pulmonary edema (Acute) CHF (congestive heart failure) (Acute) Anemia (Acute) Patient is a 80-year-old gentleman with recent admission at [facility] for bilateral calcaneal fracture. Hospital stay was complicated by pulmonary emboli discharged on systemic anticoagulation presented to the emergency department with progressive shortness of breath suspect of acute hypoxic respiratory failure made. Subsequent COVID-19 assay came back positive 1. Acute hypoxic respiratory failure ?Secondary to COVID-19 pneumonia as well as acute on chronic CHF with preserved ejection fraction. Patient has been admitted to the intensive care unit. Patient managed on noninvasive ventilation with consultation placed to pulmonary medicine -05/17/2020: Patient remains in ICU without much significant improvement in his overall condition. Remains on noninvasive ventilation BiPAP. Patient did consent to remdesivir use. Also scheduled to receive convalescent plasma 2. Acute COVID-19 pneumonia ?Admitted to the intensive care unit patient managed with empiric antibiotics as well as Decadron. Patient already on systemic anticoagulation. Consult was placed to both infectious disease as well as pulmonary medicine 3. Severe sepsis secondary to patient's acute pneumonia ?Management as discussed above 4. Acute on chronic congestive heart failure with preserved ejection fraction ?Patient managed with fluid restriction as well as diuretics with Lasix. 2D echo ordered; results pending 5. Anemia - Secondary to chronic disorder monitoring H&H and transfuse if patient becomes symptomatic or hemoglobin falls below 7 -05/17/2020; drop in patient hemoglobin level however currently does not meet criteria for blood transfusion 6. Elevated cardiac enzymes ?Secondary to non-STEMI type II as a result of demand ischemia EKG did not reveal any acute ST?T changes 7. Recent diagnosis of pulmonary embolism -patient is on systemic anticoagulation with Eliquis did continue 8. Traumatic bilateral calcaneal fracture -Has bilateral lower extremity cast -05/17/2020: Plan is to involve physical therapy once patient is medically stable to participate in PT 9. Coronary artery disease -status post CABG 10. Heart disease ?Status post aortic valve replacement with bioprosthetic valve 11. Dyslipidemia ?Patient is on Crestor did continue 12. Paroxysmal A. fib ?Rate controlled on amiodarone; Patient on systemic anticoagulation with Eliquis 13. DVT prophylaxis ?Patient is on systemic anticoagulation with Eliquis Inpatient E&M: [id number] [place] [id number]
[2020-05-17] MEDS: dexAMETHasone 10 MG/ML Vial 6 MG IV (12:03)
[2020-05-17] MEDS: Metoprolol Tartrate 25 MG Tablet PO (12:04)
[2020-05-17] MEDS: Amiodarone 200 MG Tablet PO (12:04)
[2020-05-17] MEDS: Aspirin E.C. 81 MG Tablet PO (12:04)
[2020-05-17] MEDS: APIXABAN 5 MG TABLET PO ×2 (12:05→22:35)
[2020-05-17] MEDS: Ipratropium/Albuterol Sulfate 3 ML AMPUL.NEB INHALATION ×2 (14:07→19:31)
--- NOTE | 2020-05-17 14:37 | PCM.PN.ID ---
Patient Problems: Active and Suspected Problems (Last Updated 05/15/20 @ 16:[address] Carlene Gamboa MD) Acute hypoxemic respiratory failure due to COVID-19 (Acute) Pulmonary edema (Acute) CHF (congestive heart failure) (Acute) Anemia (Acute) Subjective: Feeling better, off bipap, no fever, no aches, no n/v/d - Physical Exam Vitals/I&O's: Vital Signs Temp Pulse Resp BP Pulse Ox 97.6 F L 64 24 H 109/76 93 05/17/20 12:02 05/17/20 14:07 05/17/20 14:07 05/17/20 12:02 05/17/20 14:07 Oxygen Flow Rate (L/min) 60 Oxygen Delivery Method Airvo Weight: 67.8 kg Body Mass Index (BMI) 24.5 Intake and Output for Last 24 Hours 05/15/20 05/16/20 05/17/20 23:59 23:59 23:59 Intake Total 658.5 / 658.5 1850 / 1950 500 / 500 Output Total 1400 / 1700 185 / 0 925 / 925 Balance -741.5 / -1041.5 0 / -100 -425 / -425 General: Alert, Cooperative, No apparent distress Lungs: Diminished Cardiovascular: Regular rate, Regular Rhythm Abdomen: Soft, Non Tender, Non-Distended Skin: No rashes Microbiology Past 72 Hours 05/15/20 12:05 Blood Culture (Wb) - Anticubital Left Blood Culture - Preliminary No growth in 48 hours. 05/15/20 11:55 Blood Culture (Wb) - Anticubital Right Blood Culture - Preliminary No growth in 48 hours. 05/16/20 04:00 Urine, Clean Catch Urine Culture - Preliminary Culture exhibits no growth. Laboratory Results 05/16/20 15:30: Blood Type A POSITIVE 05/17/20 04:05: WBC 15.1 H, RBC 2.61 L, Hgb 8.2 L, Hct 26.0 L, MCV 99.6 H, MCH 31.4, MCHC 31.5 L, RDW Std Deviation 53.6 H, RDW Coeff of Jeanne 14.7 H, Plt Count 305, MPV 9.3 05/17/20 05:30: Sodium 138, Potassium 4.1, Chloride 104, Carbon Dioxide 29.0, Anion Gap 5, BUN 45 H, Creatinine 1.47 H, Estim Creat Clear Calc 38.10, Est GFR (MDRD) Af Amer 59 L, Est GFR (MDRD) Non-Af 49 L, BUN/Creatinine Ratio 30.6 H, Glucose 111 H, Calcium 7.9 L, Total Bilirubin 0.90, AST 56 H, ALT 72 H, Alkaline Phosphatase 75, Total Protein 6.2 L, Albumin 1.9 L, Globulin 4.3 H, Albumin/Globulin Ratio 0.4 L Current Medications Acetaminophen (Acetaminophen 325 Mg Tablet) 650 mg PO Q6H PRN PRN PRN Reason: Pain Score 1-10/Temp > 100.7 F Last Admin: 05/15/20 20:44 Dose: 650 mg Documented by: Albuterol Sulfate (Albuterol Sulfate 8 Gm Inhaler (60 Puffs)) 2 puff INHALATION Q4H PRN PRN PRN Reason: Shortness of breath, wheezing Albuterol Sulfate (Albuterol Sulfate 8 Gm Inhaler (60 Puffs)) 1 puff INHALATION Q6HWA.RT [facility] Albuterol/Ipratropium (Ipratropium/Albuterol Sulfate 3 Ml Ampul.Neb) 3 ml INHALATION Q4HWA.RT [facility] Last Admin: 05/17/20 14:07 Dose: 3 ml Documented by: Amiodarone HCl (Amiodarone 200 Mg Tablet) 200 mg PO DAILY [facility] Last Admin: 05/17/20 12:04 Dose: 200 mg Documented by: Apixaban (Apixaban 5 Mg Tablet) 5 mg PO BID [facility] Last Admin: 05/17/20 12:05 Dose: 5 mg Documented by: Aspirin (Aspirin E.C. 81 Mg Tablet) 81 mg PO DAILY@0800 [facility] Last Admin: 05/17/20 12:04 Dose: 81 mg Documented by: Dexamethasone Sodium Phosphate (Dexamethasone 10 Mg/Ml Vial) 6 mg IV DAILY [facility] Last Admin: 05/17/20 12:03 Dose: 6 mg Documented by: Piperacillin Sod/Tazobactam (Sod 3.375 gm/ Sodium Chloride) 50 mls @ 12.5 mls/hr IV Q8 [facility] Last Infusion: 05/17/20 09:31 Dose: Infused Documented by: Remdesivir (Investigational) (100 mg/ Sodium Chloride) 250 mls @ 125 mls/hr IV DAILY [facility]; Protocol Stop: 05/20/20 11:59 Last Admin: 05/17/20 13:40 Dose: 125 mls/hr Documented by: Metoprolol Tartrate (Metoprolol Tartrate 25 Mg Tablet) 25 mg PO DAILY [facility] Last Admin: 05/17/20 12:04 Dose: 25 mg Documented by: Ondansetron HCl (Ondansetron 4 Mg/2 Ml Vial) 4 mg IV Q8H PRN PRN PRN Reason: NAUSEA/VOMITING Oxycodone HCl (Oxycodone 5 Mg Tablet) 5 mg PO Q6H PRN PRN PRN Reason: Pain 1-10 or Fever Rosuvastatin Calcium (Rosuvastatin Calcium 10 Mg Tablet) 10 mg PO QHS [facility] Last Admin: 05/16/20 20:54 Dose: 10 mg Documented by: Senna/Docusate Sodium (Senna/Docusate Sodium 1 Tablet) 2 tablet PO BID PRN PRN Reason: Constipation Sodium Chloride (0.9% Saline Lock 10 Ml Syringe) 10 - 40 ml IV UD PRN PRN Reason: SALINE FLUSH Last Admin: 05/16/20 15:36 Dose: 10 ml Documented by: Sodium Chloride (0.9% Saline Lock 10 Ml Syringe) 10 - 40 ml IV UD PRN PRN Reason: SALINE FLUSH Medical Necessity - Tobacco Use Smoking Status: Former smoker Tobacco Use: Non-smoker Route of nutrition/ use of supplements: [] Nutritional Intake: [] IV Site: [] Barkley Catheter: [] - Assessment/Plan Antibiotics: [] Assessment/Plan: [] Active and Suspected Problems (Last Updated 05/15/20 @ 16:[address] Carlene Gamboa MD) Acute hypoxemic respiratory failure due to COVID-19 (Acute) Pulmonary edema (Acute) CHF (congestive heart failure) (Acute) Anemia (Acute) On dex and remdesivir. Getting plasma today. On zosyn. Had high PCT, neg cxs so far, low suspicion for bacterial infection. Will stop zosyn. Will follow, d/w nursing.
[2020-05-18] VITALS (40 sets, daily range): BP systolic 100–170; BP diastolic 51–97; PULSE 61–79; RESP 12–34; TEMP 36.4–36.8; O2SAT 87–97
--- NOTE | 2020-05-18 04:19 | CPS ---
Pt.'s FiO2 increased to meet oxygenation demands
[2020-05-18 04:49] LABS: Hematocrit 24.7 % (40-54); Hemoglobin 7.8 g/dL (13.0-16.5); Mean Corp Hgb Conc 31.6 g/dL (32-36); Mean Platelet Vol. 9.2 fl (6.2-12.0); Platelet Count 301 K/mm3 (150-450); RBC Distribution Width CV 14.8 % (11.6-14.6); RBC Distribution Width SD 53.3 fl (35.1-43.9); Red Blood Count 2.52 M/mm3 (4.6-6.2); White Blood Count 11.7 K/mm3 (4.4-11.0)
[2020-05-18 05:07] LABS: ALB/GLOB Ratio 0.5 RATIO (0.9-2.4); AST(SGOT) 46 U/L (15-37); Alanine Aminotransfer ALT/SGPT 63 U/L (16-61); Albumin, Serum 1.9 g/dL (3.2-5.0); Alkaline Phosphatase 78 U/L (45-117); Anion Gap 6 (5-15); BUN 45 mg/dL (7-18); BUN/Creat Ratio 37.5 RATIO (10-20); Calcium,Total 7.8 mg/dL (8.5-10.1); Chloride 107 mmol/L (98-107); EST Glomerular Filtration Rate 62 mL/min (>60); Est Glom Filt Rate - Afr Amer 75 mL/min (>60); Estimated Creatinine Clearance 46.67 ml/min; Globulin 4.1 g/dL (2.2-4.2); Glucose 101 mg/dL (74-106); Sodium Level 138 mmol/L (136-145)
--- NOTE | 2020-05-18 06:04 | PN_ITS ---
Subjective: The patient was seen and examined at the bedside this morning. Events from the last 24 hours have been reviewed. The patient is currently afebrile, hemodynamically stable and maintaining appropriate oxygen saturations on BiPAP with an FiO2 requirement of 80%. The patient remains systemically anticoagulated on Eliquis and is receiving Decadron and remdesivir. He did receive convalescent plasma. The patient's respiratory status remains quite tenuous. Objective: The patient's most recent lab work, culture data and imaging studies have all been personally reviewed. Surface echocardiogram revealed moderate concentric LVH with an ejection fraction of 65 to 75%. Diastolic dysfunction was noted along with a right ventricular systolic pressure estimated to be 40 mmHg. Coronavirus PCR was positive on May 15. Blood and urine cultures have shown no growth to date.. General: Alert, Cooperative HEENT: Atraumatic, Normocephalic Oral: No Gingival or Mucosal Lesions/ Ulcerations Neck: Supple, No Nodes, Trachea Midline Lungs: Diminished, Tachypneic Cardiovascular: Regular rate, Regular Rhythm Abdomen: Bowel Sounds Present, Soft, Non Tender Extremities: No clubbing, No cyanosis, No edema Skin: No breakdown Musculoskeletal: No Muscle Wasting Lymphatic: No Cervical, Supraclavicular, or Inguinal Adenopathy Neurological: Neuro grossly intact Psych/Mental Status: Normal Affect, Appropriate Vital Signs Temp Pulse Resp BP Pulse Ox 97.8 F 69 28 H 138/65 H 91 05/18/20 04:00 05/18/20 05:00 05/18/20 05:00 05/18/20 05:00 05/18/20 05:00 Oxygen Flow Rate (L/min) 60 Oxygen Delivery Method Bi-pap Weight: 151 lb 3.794 oz Body Mass Index (BMI) 24.5 Intake and Output for Last 24 Hours 05/16/20 05/17/20 05/18/20 23:59 23:59 23:59 Intake Total 1850 / 1950 1000 / 1000 60 / 60 Output Total 1849 1725 / 1725 300 / 300 Balance 0 / -100 -725 / -725 -240 / -240 Labs (Last 48 Hours) 05/16/20 05/17/20 05/17/20 15:30 04:05 05:30 WBC 15.1 H RBC 2.61 L Hgb 8.2 L Hct 26.0 L MCV 99.6 H MCH 31.4 MCHC 31.5 L RDW Std Deviation 53.6 H RDW Coeff of Jeanne 14.7 H Plt Count 305 MPV 9.3 Sodium 138 Potassium 4.1 Chloride 104 Carbon Dioxide 29.0 Anion Gap 5 BUN 45 H Creatinine 1.47 H Estim Creat Clear Calc 38.10 Est GFR (MDRD) Af Amer 59 L Est GFR (MDRD) Non-Af 49 L BUN/Creatinine Ratio 30.6 H Glucose 111 H Calcium 7.9 L Total Bilirubin 0.90 AST 56 H ALT 72 H Alkaline Phosphatase 75 Total Protein 6.2 L Albumin 1.9 L Globulin 4.3 H Albumin/Globulin Ratio 0.4 L Blood Type A POSITIVE 05/18/20 05/18/20 04:40 04:40 WBC 11.7 H RBC 2.52 L Hgb 7.8 L Hct 24.7 L MCV 98.0 H MCH 31.0 MCHC 31.6 L RDW Std Deviation 53.3 H RDW Coeff of Jeanne 14.8 H Plt Count 301 MPV 9.2 Sodium 138 Potassium 4.0 Chloride 107 Carbon Dioxide 25.0 Anion Gap 6 BUN 45 H Creatinine 1.20 Estim Creat Clear Calc 46.67 Est GFR (MDRD) Af Amer 75 Est GFR (MDRD) Non-Af 62 BUN/Creatinine Ratio 37.5 H Glucose 101 Calcium 7.8 L Total Bilirubin 0.80 AST 46 H ALT 63 H Alkaline Phosphatase 78 Total Protein 6.0 L Albumin 1.9 L Globulin 4.1 Albumin/Globulin Ratio 0.5 L Blood Type Microbiology 05/15/20 12:05 Blood Culture (Wb) - Anticubital Left Blood Culture - Preliminary No growth in 48 hours. 05/15/20 11:55 Blood Culture (Wb) - Anticubital Right Blood Culture - Preliminary No growth in 48 hours. 05/16/20 04:00 Urine, Clean Catch Urine Culture - Preliminary Culture exhibits no growth. Clinical Impression(s) from Imaging Studies Chest X-Ray 05/15/20 11:59 IMPRESSION: Severe congestive heart failure. Electronically Signed: Moe Elam MD at 12:54 EDT Tel , Service support , Medical Necessity - Tobacco Use Smoking Status: Former smoker Tobacco Use: Non-smoker Assessment/Plan All Active Problems (Last Updated 05/15/20 @ 16:[address] Carlene Gamboa MD) Acute hypoxemic respiratory failure due to COVID-19 (Acute) Pulmonary edema (Acute) CHF (congestive heart failure) (Acute) Anemia (Acute) RECOMMENDATIONS: 1. Continue scheduled bronchodilator therapy. 2. Continue BiPAP therapy and wean as tolerated. 3. Titrate FiO2 to maintain oxygen saturations at or above 90%. 4. Continue systemic anticoagulation with Eliquis. 5. Continue scheduled Decadron. 6. Continue remdesivir to complete treatment course. 7. Lasix challenge today. IMPRESSIONS: 1. Acute hypoxemic respiratory failure secondary to Covid pneumonia Continue current supportive measures including noninvasive positive pressure ventilatory support. Goal to wean FiO2 to maintain oxygen saturations at or above 90%. The patient is already systemically anticoagulated on Eliquis, which will be continued. Continue Decadron, with plans to complete a 10-day treatment course. The patient has already received convalescent plasma and remains on remdesivir. Despite this, his respiratory status remains quite tenuous. Accordingly, will attempt gentle diuresis today. 2. Recent diagnosis of pulmonary embolism The patient was recently diagnosed with pulmonary emboli at an outside institution last week. Accordingly, systemic anticoagulation will be continued. 3. History of diastolic dysfunction/pulmonary hypertension/coronary artery disease status post CABG Continue outpatient cardiac regimen. Will reattempt diuresis challenge today. 4. Self-reported history of asthma The patient will be continued on scheduled bronchodilator therapy. Continue supportive measures as noted above. 5. Anemia/chronic kidney disease/history of atrial fibrillation/hyperlipidemia/ advanced age Complicates care, management, recovery and prognosis. Continue home medications as indicated. Physical therapy evaluation once medically stabilized. TIME: 35 minutes of critical care time, independent of procedures, was spent addressing the patient's acute hypoxemic respiratory failure secondary to Covid pneumonia, recent diagnosis of pulmonary embolism, severe sepsis secondary to Covid pneumonia, history of heart failure with preserved ejection fraction, self-reported history of asthma, review of all data and collaboration with the care team. [id number]) [id number] Critical care first hour
--- NOTE | 2020-05-18 06:40 | CPS ---
Pt. took small break from BiPAP to wear AirVo. Pt. was getting anxious wearing BiPAP. He asked if there was any way I could decrease the pressures to make it more comfortable. I titrated his pressures down to 16/12, and the pt. said it made a big difference.
[2020-05-18] MEDS: Ipratropium/Albuterol Sulfate 3 ML AMPUL.NEB INHALATION ×4 (06:55→19:06)
--- NOTE | 2020-05-18 07:16 | PN_ITS ---
Patient Problems: Active and Suspected Problems (Last Updated 05/15/20 @ 16:[address] Carlene Gamboa MD) Acute hypoxemic respiratory failure due to COVID-19 (Acute) Pulmonary edema (Acute) CHF (congestive heart failure) (Acute) Anemia (Acute) Reason for Visit: Acute COVID-19 pneumonia Subjective: Patient seen in the ICU still remains critical. On BiPAP with high FiO2. Drop in patient hemoglobin level to 7.8. WBC count trending down. Objective: GENERAL: On BiPAP HEENT: Atraumatic; EYES; Anicteric, Normal Conjunctiva NECK; supple, normal thyroid, RESPIRATORY: Diminished to auscultation CARDIOVASCULAR: Regular S1 S2, GI: soft, normoactive bowel sounds, : No Renal angle tenderness; EXTREMITIES: Lower extremities in MUSCULOSKELETAL: no muscle waisting NEURO: Awake; no lateralizing signs. SKIN: No Rash PSYCH; Flat affect Vitals/I&O's: Vital Signs Temp Pulse Resp BP Pulse Ox 97.8 F 72 26 H 133/97 H 89 05/18/20 04:00 05/18/20 07:00 05/18/20 07:00 05/18/20 07:00 05/18/20 07:00 Oxygen Flow Rate (L/min) 60 Oxygen Delivery Method Bi-pap Weight: 68.6 kg Body Mass Index (BMI) 24.5 Intake and Output for Last 24 Hours 05/16/20 05/17/20 05/18/20 23:59 23:59 23:59 Intake Total 1850 / 1950 1000 / 1000 60 / 60 Output Total 1849 / 0 1725 / 1725 600 / 600 Balance 0 / -100 -725 / -725 -540 / -540 Microbiology Past 72 Hours 05/15/20 12:05 Blood Culture (Wb) - Anticubital Left Blood Culture - Preliminary No growth in 48 hours. 05/15/20 11:55 Blood Culture (Wb) - Anticubital Right Blood Culture - Preliminary No growth in 48 hours. 05/16/20 04:00 Urine, Clean Catch Urine Culture - Preliminary Culture exhibits no growth. Laboratory Results 05/18/20 04:40: WBC 11.7 H, RBC 2.52 L, Hgb 7.8 L, Hct 24.7 L, MCV 98.0 H, MCH 31.0, MCHC 31.6 L, RDW Std Deviation 53.3 H, RDW Coeff of Jeanne 14.8 H, Plt Count 301, MPV 9.2 05/18/20 04:40: Sodium 138, Potassium 4.0, Chloride 107, Carbon Dioxide 25.0, Anion Gap 6, BUN 45 H, Creatinine 1.20, Estim Creat Clear Calc 46.67, Est GFR (MDRD) Af Amer 75, Est GFR (MDRD) Non-Af 62, BUN/Creatinine Ratio 37.5 H, Glucose 101, Calcium 7.8 L, Total Bilirubin 0.80, AST 46 H, ALT 63 H, Alkaline Phosphatase 78, Total Protein 6.0 L, Albumin 1.9 L, Globulin 4.1, Albumin/Globulin Ratio 0.5 L Current Medications Acetaminophen (Acetaminophen 325 Mg Tablet) 650 mg PO Q6H PRN PRN PRN Reason: Pain Score 1-10/Temp > 100.7 F Last Admin: 05/15/20 20:44 Dose: 650 mg Documented by: Albuterol Sulfate (Albuterol Sulfate 8 Gm Inhaler (60 Puffs)) 2 puff INHALATION Q4H PRN PRN PRN Reason: Shortness of breath, wheezing Albuterol Sulfate (Albuterol Sulfate 8 Gm Inhaler (60 Puffs)) 1 puff INHALATION Q6HWA.RT [facility] Albuterol/Ipratropium (Ipratropium/Albuterol Sulfate 3 Ml Ampul.Neb) 3 ml INHALATION Q4HWA.RT [facility] Last Admin: 05/18/20 06:55 Dose: 3 ml Documented by: Amiodarone HCl (Amiodarone 200 Mg Tablet) 200 mg PO DAILY [facility] Last Admin: 05/17/20 12:04 Dose: 200 mg Documented by: Apixaban (Apixaban 5 Mg Tablet) 5 mg PO BID [facility] Last Admin: 05/17/20 22:35 Dose: 5 mg Documented by: Aspirin (Aspirin E.C. 81 Mg Tablet) 81 mg PO DAILY@0800 [facility] Last Admin: 05/17/20 12:04 Dose: 81 mg Documented by: Dexamethasone Sodium Phosphate (Dexamethasone 10 Mg/Ml Vial) 6 mg IV DAILY [facility] Last Admin: 05/17/20 12:03 Dose: 6 mg Documented by: Remdesivir (Investigational) (100 mg/ Sodium Chloride) 250 mls @ 125 mls/hr IV DAILY [facility]; Protocol Stop: 05/20/20 11:59 Last Infusion: 05/17/20 15:40 Dose: Infused Documented by: Metoprolol Tartrate (Metoprolol Tartrate 25 Mg Tablet) 25 mg PO DAILY [facility] Last Admin: 05/17/20 12:04 Dose: 25 mg Documented by: Ondansetron HCl (Ondansetron 4 Mg/2 Ml Vial) 4 mg IV Q8H PRN PRN PRN Reason: NAUSEA/VOMITING Oxycodone HCl (Oxycodone 5 Mg Tablet) 5 mg PO Q6H PRN PRN PRN Reason: Pain 1-10 or Fever Rosuvastatin Calcium (Rosuvastatin Calcium 10 Mg Tablet) 10 mg PO QHS [facility] Last Admin: 05/17/20 22:35 Dose: 10 mg Documented by: Senna/Docusate Sodium (Senna/Docusate Sodium 1 Tablet) 2 tablet PO BID PRN PRN Reason: Constipation Sodium Chloride (0.9% Saline Lock 10 Ml Syringe) 10 - 40 ml IV UD PRN PRN Reason: SALINE FLUSH Last Admin: 05/16/20 15:36 Dose: 10 ml Documented by: Sodium Chloride (0.9% Saline Lock 10 Ml Syringe) 10 - 40 ml IV UD PRN PRN Reason: SALINE FLUSH STROKE Vital Signs/Narrative: Vital Signs Temp Pulse Resp BP Pulse Ox 05/18/20 07:00 72 26 H 133/97 H 89 05/18/20 06:55 77 32 H 95 05/18/20 06:10 68 28 H 90 05/18/20 06:00 72 22 H 121/72 H 94 05/18/20 05:00 69 28 H 138/65 H 91 05/18/20 04:00 97.8 F 66 25 H 141/67 H 92 05/18/20 03:30 63 26 H 92 Medical Necessity - Tobacco Use Smoking Status: Former smoker Tobacco Use: Non-smoker Assessment/Plan All Active Problems (Last Updated 05/15/20 @ 16:[address] Carlene Gamboa MD) Acute hypoxemic respiratory failure due to COVID-19 (Acute) Pulmonary edema (Acute) CHF (congestive heart failure) (Acute) Anemia (Acute) Patient is a 80-year-old gentleman with recent admission at [facility] for bilateral calcaneal fracture. Hospital stay was complicated by pulmonary emboli discharged on systemic anticoagulation presented to the emergency department with progressive shortness of breath suspect of acute hypoxic respiratory failure made. Subsequent COVID-19 assay came back positive 1. Acute hypoxic respiratory failure ?Secondary to COVID-19 pneumonia as well as acute on chronic CHF with preserved ejection fraction. Patient has been admitted to the intensive care unit. Patient managed on noninvasive ventilation with consultation placed to pulmonary medicine -05/17/2020: Patient remains in ICU without much significant improvement in his overall condition. Remains on noninvasive ventilation BiPAP. Patient did consent to remdesivir use. Also scheduled to receive convalescent plasma -05/18/2020 patient condition remains critical requiring noninvasive ventilation with high FiO2. 2. Acute COVID-19 pneumonia ?Admitted to the intensive care unit patient managed with empiric antibiotics as well as Decadron. Patient already on systemic anticoagulation. Consult was placed to both infectious disease as well as pulmonary medicine -05/18/2020; patient did receive convalescent plasma the day prior. 3. Severe sepsis secondary to patient's acute pneumonia ?Management as discussed above 4. Acute on chronic congestive heart failure with preserved ejection fraction ?Patient managed with fluid restriction as well as diuretics with Lasix. 2D echo ordered; results pending 5. Anemia - Secondary to chronic disorder monitoring H&H and transfuse if patient becomes symptomatic or hemoglobin falls below 7 -05/17/2020; drop in patient hemoglobin level however currently does not meet criteria for blood transfusion -05/18/2020 hemoglobin down to 7.8. 6. Elevated cardiac enzymes ?Secondary to non-STEMI type II as a result of demand ischemia EKG did not reveal any acute ST?T changes 7. Recent diagnosis of pulmonary embolism -patient is on systemic anticoagulation with Eliquis did continue 8. Traumatic bilateral calcaneal fracture -Has bilateral lower extremity cast -05/17/2020: Plan is to involve physical therapy once patient is medically stable to participate in PT 9. Coronary artery disease -status post CABG 10. Heart disease ?Status post aortic valve replacement with bioprosthetic valve 11. Dyslipidemia ?Patient is on Crestor did continue 12. Paroxysmal A. fib ?Rate controlled on amiodarone; Patient on systemic anticoagulation with Eliquis 13. DVT prophylaxis ?Patient is on systemic anticoagulation with Eliquis Inpatient E&M: [id number] [place] [id number]
--- NOTE | 2020-05-18 09:30 | CASEMGMT ---
YUNIOR JACK NOTE: Participated in ICU interdisciplinary rounds. Pt remains on BIPAP with high FIO2 and without much significant improvement in his overall condition. He has received Convalescent plasma, and is getting Remdesivir and IV Decadron. Hgb this am 7.8. YUNIOR JACK to continue to follow pt and assist with any care coordination/discharge planning that may arise. Wilmar CATN YUNIOR JACK
[2020-05-18] MEDS: dexAMETHasone 10 MG/ML Vial 6 MG IV (10:31)
[2020-05-18] MEDS: Aspirin E.C. 81 MG Tablet PO (10:31)
[2020-05-18] MEDS: Amiodarone 200 MG Tablet PO (10:31)
[2020-05-18] MEDS: APIXABAN 5 MG TABLET PO ×2 (10:32→21:41)
[2020-05-18] MEDS: Metoprolol Tartrate 25 MG Tablet PO (10:33)
[2020-05-18] MEDS: Furosemide 40 MG/4 ML Vial IV (10:38)
--- NOTE | 2020-05-18 15:12 | PCM.PN.ID ---
Patient Problems: Active and Suspected Problems (Last Updated 05/15/20 @ 16:[address] Carlene Gamboa MD) Acute hypoxemic respiratory failure due to COVID-19 (Acute) Pulmonary edema (Acute) CHF (congestive heart failure) (Acute) Anemia (Acute) Subjective: Feeling much better, no fever, no n/v. - Physical Exam Vitals/I&O's: Vital Signs Temp Pulse Resp BP Pulse Ox 97.9 F 64 23 H 139/57 H 94 05/18/20 12:00 05/18/20 12:00 05/18/20 12:00 05/18/20 12:00 05/18/20 12:00 Oxygen Flow Rate (L/min) 60 Oxygen Delivery Method Bi-pap Weight: 68.6 kg Body Mass Index (BMI) 24.5 Intake and Output for Last 24 Hours 05/16/20 05/17/20 05/18/20 23:59 23:59 23:59 Intake Total 1850 / 1950 1000 / 1000 310 / 310 Output Total 1849 / 2049 1725 / 1725 1500 / 1500 Balance 0 / -100 -725 / -725 -1190 / -1190 General: Alert, Cooperative, No apparent distress Lungs: Clear to auscultation, Normal air movement Cardiovascular: Regular rate, Regular Rhythm Abdomen: Soft, Non Tender, Non-Distended Skin: No rashes Microbiology Past 72 Hours 05/16/20 04:00 Urine, Clean Catch Urine Culture - Final Culture exhibits no growth. 05/15/20 12:05 Blood Culture (Wb) - Anticubital Left Blood Culture - Preliminary No growth in 48 hours. 05/15/20 11:55 Blood Culture (Wb) - Anticubital Right Blood Culture - Preliminary No growth in 48 hours. Laboratory Results 05/18/20 04:40: WBC 11.7 H, RBC 2.52 L, Hgb 7.8 L, Hct 24.7 L, MCV 98.0 H, MCH 31.0, MCHC 31.6 L, RDW Std Deviation 53.3 H, RDW Coeff of Jeanne 14.8 H, Plt Count 301, MPV 9.2 05/18/20 04:40: Sodium 138, Potassium 4.0, Chloride 107, Carbon Dioxide 25.0, Anion Gap 6, BUN 45 H, Creatinine 1.20, Estim Creat Clear Calc 46.67, Est GFR (MDRD) Af Amer 75, Est GFR (MDRD) Non-Af 62, BUN/Creatinine Ratio 37.5 H, Glucose 101, Calcium 7.8 L, Total Bilirubin 0.80, AST 46 H, ALT 63 H, Alkaline Phosphatase 78, Total Protein 6.0 L, Albumin 1.9 L, Globulin 4.1, Albumin/Globulin Ratio 0.5 L Current Medications Acetaminophen (Acetaminophen 325 Mg Tablet) 650 mg PO Q6H PRN PRN PRN Reason: Pain Score 1-10/Temp > 100.7 F Last Admin: 05/15/20 20:44 Dose: 650 mg Documented by: Albuterol Sulfate (Albuterol Sulfate 8 Gm Inhaler (60 Puffs)) 2 puff INHALATION Q4H PRN PRN PRN Reason: Shortness of breath, wheezing Albuterol Sulfate (Albuterol Sulfate 8 Gm Inhaler (60 Puffs)) 1 puff INHALATION Q6HWA.RT [facility] Albuterol/Ipratropium (Ipratropium/Albuterol Sulfate 3 Ml Ampul.Neb) 3 ml INHALATION Q4HWA.RT [facility] Last Admin: 05/18/20 11:18 Dose: 3 ml Documented by: Amiodarone HCl (Amiodarone 200 Mg Tablet) 200 mg PO DAILY [facility] Last Admin: 05/18/20 10:31 Dose: 200 mg Documented by: Apixaban (Apixaban 5 Mg Tablet) 5 mg PO BID [facility] Last Admin: 05/18/20 10:32 Dose: 5 mg Documented by: Aspirin (Aspirin E.C. 81 Mg Tablet) 81 mg PO DAILY@0800 [facility] Last Admin: 05/18/20 10:31 Dose: 81 mg Documented by: Dexamethasone Sodium Phosphate (Dexamethasone 10 Mg/Ml Vial) 6 mg IV DAILY [facility] Last Admin: 05/18/20 10:31 Dose: 6 mg Documented by: Remdesivir (Investigational) (100 mg/ Sodium Chloride) 250 mls @ 125 mls/hr IV DAILY [facility]; Protocol Stop: 05/20/20 11:59 Last Infusion: 05/18/20 13:21 Dose: Infused Documented by: Metoprolol Tartrate (Metoprolol Tartrate 25 Mg Tablet) 25 mg PO DAILY [facility] Last Admin: 05/18/20 10:33 Dose: 25 mg Documented by: Ondansetron HCl (Ondansetron 4 Mg/2 Ml Vial) 4 mg IV Q8H PRN PRN PRN Reason: NAUSEA/VOMITING Oxycodone HCl (Oxycodone 5 Mg Tablet) 5 mg PO Q6H PRN PRN PRN Reason: Pain 1-10 or Fever Rosuvastatin Calcium (Rosuvastatin Calcium 10 Mg Tablet) 10 mg PO QHS [facility] Last Admin: 05/17/20 22:35 Dose: 10 mg Documented by: Senna/Docusate Sodium (Senna/Docusate Sodium 1 Tablet) 2 tablet PO BID PRN PRN Reason: Constipation Sodium Chloride (0.9% Saline Lock 10 Ml Syringe) 10 - 40 ml IV UD PRN PRN Reason: SALINE FLUSH Last Admin: 05/16/20 15:36 Dose: 10 ml Documented by: Sodium Chloride (0.9% Saline Lock 10 Ml Syringe) 10 - 40 ml IV UD PRN PRN Reason: SALINE FLUSH Medical Necessity - Tobacco Use Smoking Status: Former smoker Tobacco Use: Non-smoker Route of nutrition/ use of supplements: [] Nutritional Intake: [] IV Site: [] Barkley Catheter: [] - Assessment/Plan Antibiotics: [] Assessment/Plan: [] Active and Suspected Problems (Last Updated 05/15/20 @ 16:[address] Carlene Gamboa MD) Acute hypoxemic respiratory failure due to COVID-19 (Acute) Pulmonary edema (Acute) CHF (congestive heart failure) (Acute) Anemia (Acute) On dex and remdesivir. Got plasma. Still high fiO2 Will follow
--- NOTE | 2020-05-18 17:00 | NURSING ---
ed re chronic illness deferred till acute illness resolving
[2020-05-19] VITALS (47 sets, daily range): BP systolic 61–160; BP diastolic 39–103; PULSE 58–96; RESP 12–68; TEMP 36.3–37.8; O2SAT 85–99; BMI 23.5
[2020-05-19 04:50] LABS: Hematocrit 27.4 % (40-54); Hemoglobin 8.8 g/dL (13.0-16.5); Mean Corp Hgb Conc 32.1 g/dL (32-36); Mean Corpuscular Hgb 31.1 pg (27.0-32.0); Mean Corpuscular Volume 96.8 fL (80-94); Mean Platelet Vol. 9.2 fl (6.2-12.0); POSITIVE DIFFERENTIAL YES; Platelet Count 355 K/mm3 (150-450); RBC Distribution Width CV 14.9 % (11.6-14.6); RBC Distribution Width SD 52.3 fl (35.1-43.9); Red Blood Count 2.83 M/mm3 (4.6-6.2); Scan Indicated on CBC? Y/N YES- FLAGS NOTED; White Blood Count 15.2 K/mm3 (4.4-11.0)
[2020-05-19 05:09] LABS: Differential Comment SCANNED
[2020-05-19 05:11] LABS: ALB/GLOB Ratio 0.5 RATIO (0.9-2.4); AST(SGOT) 39 U/L (15-37); Alanine Aminotransfer ALT/SGPT 61 U/L (16-61); Albumin, Serum 2.1 g/dL (3.2-5.0); Alkaline Phosphatase 89 U/L (45-117); Anion Gap 6 (5-15); BUN 52 mg/dL (7-18); BUN/Creat Ratio 39.7 RATIO (10-20); Calcium,Total 8.2 mg/dL (8.5-10.1); Chloride 108 mmol/L (98-107); Creatinine, Serum 1.31 mg/dL (0.70-1.30); EST Glomerular Filtration Rate 56 mL/min (>60); Est Glom Filt Rate - Afr Amer 68 mL/min (>60); Estimated Creatinine Clearance 42.75 ml/min; Globulin 4.4 g/dL (2.2-4.2); Glucose 113 mg/dL (74-106); Potassium 4.2 mmol/L (3.5-5.1); Protein, Total 6.5 g/dL (6.4-8.2); Sodium Level 141 mmol/L (136-145)
--- NOTE | 2020-05-19 06:15 | PCM.PN.INT ---
Subjective: The patient was seen and examined at the bedside this morning. Events from the last 24 hours have been reviewed. The patient is currently afebrile, hemodynamically stable and maintaining appropriate oxygen saturations on BiPAP with an FiO2 requirement of 95%. The patient only lasted for 5 minutes on Airvo last night only to readily desaturate. The patient was given a one-time dose of IV Lasix 40 mg yesterday. He is currently documented to be overall net -3.9 L for the hospital admission. Again, the patient has already received convalescent plasma and remains on Decadron and remdesivir. The patient remains agreeable to intubation. He does appear to be more tired and fatigued than previous. Intubation Indication: Impending respiratory failure Consent was obtained from: Patient The patient was placed in the appropriate sniffing position. Preoxygenated sedation via BiPAP was provided for a minimum of 3 minutes. The patient had continuous cardiac as well as pulse oximetry monitoring during the procedure. Procedure sedation was provided by the administration of 2 mg of Versed and 20 mg of etomidate. Video laryngoscopy was then performed using a number 4 MAC blade, which revealed a grade 1 view. A 7.5 mm endotracheal tube was visualized advancing between the cords to the level of 23 cm at the lip. The stylette was then removed and discarded. Tube placement was confirmed by fogging in the tube along with equal and bilateral breath sounds. Colorimetric change was visualized on the CO2 meter. The cuff was then inflated and the tube secured using a commercially available device. A good pulse oximetry waveform was seen on the monitor throughout the procedure. A portable chest x-ray has been ordered to confirm appropriate placement. The patient tolerated the procedure well. Objective: The patient's most recent lab work, culture data and imaging studies have all been personally reviewed. Surface echocardiogram revealed moderate concentric LVH with an ejection fraction of 65 to 75%. Diastolic dysfunction was noted along with a right ventricular systolic pressure estimated to be 40 mmHg. Coronavirus PCR was positive on May 15. Blood and urine cultures have shown no growth to date. General: Alert, - - Appears quite ill and fatigued in appearance. HEENT: Atraumatic, Normocephalic Oral: Dry Mucosa Neck: Supple, No Nodes, Trachea Midline Lungs: Diminished, Short of Breath, Tachypneic, - - Using accessory muscles Cardiovascular: Regular rate, Regular Rhythm Abdomen: Bowel Sounds Present, Soft, Non Tender Extremities: No clubbing, No cyanosis Skin: - - No significant change from previous. Musculoskeletal: - - Lower extremities remain in soft casts. Neurological: Cranial nerves II-XII grossly intact, Neuro grossly intact Psych/Mental Status: Normal Affect Vital Signs Temp Pulse Resp BP Pulse Ox 97.3 F L 66 21 H 106/77 91 05/19/20 04:00 05/19/20 05:25 05/19/20 05:25 05/19/20 05:00 05/19/20 05:25 Oxygen Flow Rate (L/min) 60 Oxygen Delivery Method Bi-pap Weight: 150 lb 5.684 oz Body Mass Index (BMI) 24.5 Intake and Output for Last 24 Hours 05/17/20 05/18/20 05/19/20 23:59 23:59 23:59 Intake Total 1000 / 1000 410 / 460 50 / 50 Output Total 1725 / 1725 2400 / 2625 575 / 575 Balance -725 / -725 -1990 / -2165 -525 / -525 Labs (Last 48 Hours) 05/18/20 05/18/20 05/19/20 04:40 04:40 04:40 WBC 11.7 H 15.2 H RBC 2.52 L 2.83 L Hgb 7.8 L 8.8 L Hct 24.7 L 27.4 L MCV 98.0 H 96.8 H MCH 31.0 31.1 MCHC 31.6 L 32.1 RDW Std Deviation 53.3 H 52.3 H RDW Coeff of Jeanne 14.8 H 14.9 H Plt Count 301 355 MPV 9.2 9.2 Differential Comment SCANNED Sodium 138 Potassium 4.0 Chloride 107 Carbon Dioxide 25.0 Anion Gap 6 BUN 45 H Creatinine 1.20 Estim Creat Clear Calc 46.67 Est GFR (MDRD) Af Amer 75 Est GFR (MDRD) Non-Af 62 BUN/Creatinine Ratio 37.5 H Glucose 101 Calcium 7.8 L Total Bilirubin 0.80 AST 46 H ALT 63 H Alkaline Phosphatase 78 Total Protein 6.0 L Albumin 1.9 L Globulin 4.1 Albumin/Globulin Ratio 0.5 L 05/19/20 04:40 WBC RBC Hgb Hct MCV MCH MCHC RDW Std Deviation RDW Coeff of Jeanne Plt Count MPV Differential Comment Sodium 141 Potassium 4.2 Chloride 108 H Carbon Dioxide 27.0 Anion Gap 6 BUN 52 H Creatinine 1.31 H Estim Creat Clear Calc 42.75 Est GFR (MDRD) Af Amer 68 Est GFR (MDRD) Non-Af 56 L BUN/Creatinine Ratio 39.7 H Glucose 113 H Calcium 8.2 L Total Bilirubin 0.80 AST 39 H ALT 61 Alkaline Phosphatase 89 Total Protein 6.5 Albumin 2.1 L Globulin 4.4 H Albumin/Globulin Ratio 0.5 L Microbiology 05/16/20 04:00 Urine, Clean Catch Urine Culture - Final Culture exhibits no growth. 05/15/20 12:05 Blood Culture (Wb) - Anticubital Left Blood Culture - Preliminary No growth in 48 hours. 05/15/20 11:55 Blood Culture (Wb) - Anticubital Right Blood Culture - Preliminary No growth in 48 hours. Clinical Impression(s) from Imaging Studies Chest X-Ray 05/15/20 11:59 IMPRESSION: Severe congestive heart failure. Electronically Signed: Moe Elam MD at 12:54 EDT Tel , Service support , Medical Necessity - Tobacco Use Smoking Status: Former smoker Tobacco Use: Non-smoker Assessment/Plan All Active Problems (Last Updated 05/15/20 @ 16:[address] Carlene Gamboa MD) Acute hypoxemic respiratory failure due to COVID-19 (Acute) Pulmonary edema (Acute) CHF (congestive heart failure) (Acute) Anemia (Acute) RECOMMENDATIONS: 1. Proceed with intubation this morning. 2. Obtain arterial blood gas 1 hour after intubation. 3. Okay to start tube feeds today. 4. Continue scheduled bronchodilator therapy. 5. Titrate FiO2 to maintain oxygen saturations at or above 90%. 6. Continue systemic anticoagulation with Eliquis. 7. Continue scheduled Decadron. 8. Continue remdesivir to complete treatment course. IMPRESSIONS: 1. Acute hypoxemic respiratory failure secondary to Covid pneumonia Although attempts were made to utilize noninvasive positive pressure ventilatory support, the patient continued to decompensate from a respiratory perspective and did require intubation on May 19. Plan to continue current supportive measures with assist control mode of mechanical ventilation, with plans to wean FiO2 to maintain oxygen saturations at or above 90%. The patient is already systemically anticoagulated on Eliquis, which will be continued. Continue Decadron, with plans to complete a 10-day treatment course. The patient has already received convalescent plasma and remains on remdesivir. 2. Recent diagnosis of pulmonary embolism The patient was recently diagnosed with pulmonary emboli at an outside institution. Accordingly, systemic anticoagulation will be continued. 3. History of diastolic dysfunction/pulmonary hypertension/coronary artery disease status post CABG Continue outpatient cardiac regimen. We will make every attempt at gentle diuresis as tolerated by hemodynamics and renal function. 4. Self-reported history of asthma The patient will be continued on scheduled bronchodilator therapy. Continue supportive measures as noted above. 5. Anemia/chronic kidney disease/history of atrial fibrillation/hyperlipidemia/advanced age Complicates care, management, recovery and prognosis. Continue home medications as indicated. Nutrition consultation to be obtained for tube feed recommendations. TIME: 45 minutes of critical care time, independent of procedures, was spent addressing the patient's acute hypoxemic respiratory failure secondary to Covid pneumonia, recent diagnosis of pulmonary embolism, severe sepsis secondary to Covid pneumonia, history of heart failure with preserved ejection fraction, self-reported history of asthma, review of all data and collaboration with the care team. ([id number]) [id number] Critical care first hour
--- NOTE | 2020-05-19 06:16 | RAD_ITS ---
STUDY: X-RAY CHEST REASON FOR EXAM: Male, 80 years old. RESPIRATORY FAILURE. COVID 19 TECHNIQUE: Single AP portable view of the chest. COMPARISON: Comparison is made with prior study 05/15/2020. FINDINGS: Since prior study, there has been improved aeration of the lungs. Residual diffuse increased interstitial markings in both lungs worse in the right upper lobe persists suggestive of a underlying scarring. There is no demonstrated pleural abnormality. Sternal cerclage wires and vascular clips are present from a prior sternotomy and coronary artery bypass graft procedure (CABG). Normal mediastinum and josé miguel. Normal visualized pulmonary arteries. There is atherosclerotic tortuosity of the aortic arch and descending thoracic aorta. Normal visualized thoracic spine. There is degenerative osteoarthritis of the bilateral shoulders. There is no demonstrated abnormality of the visualized soft tissue structures of the upper abdomen. RAD/Chest 1 View (Portable) IMPRESSION: Improved aeration of both lungs with persistent increased interstitial markings worse in the right hemithorax. Electronically Signed: Behzad Jimenez, at 12:30 EDT , Service support ,
[2020-05-19] MEDS: Ipratropium/Albuterol Sulfate 3 ML AMPUL.NEB INHALATION ×3 (07:13→18:55)
--- NOTE | 2020-05-19 07:28 | PN_ITS ---
Patient Problems: Active and Suspected Problems (Last Updated 05/15/20 @ 16:[address] Carlene Gamboa MD) Acute hypoxemic respiratory failure due to COVID-19 (Acute) Pulmonary edema (Acute) CHF (congestive heart failure) (Acute) Anemia (Acute) Reason for Visit: Acute hypoxic respiratory failure COVID-19 pneumonia Subjective: Patient seen in the ICU remains on BiPAP attempts to wean patient off BiPAP to airvo was unsuccessful patient condition continues to deteriorate. Case discussed with pulmonary medicine. Plan is for patient to be intubated in view of his impending respiratory failure Objective: GENERAL: On BiPAP significantly dyspneic at rest HEENT: Atraumatic; EYES; Anicteric, Normal Conjunctiva NECK; supple, normal thyroid, RESPIRATORY: Diminished to auscultation CARDIOVASCULAR: Regular S1 S2, tachycardic GI: soft, normoactive bowel sounds, : No Renal angle tenderness; EXTREMITIES: Lower extremities in MUSCULOSKELETAL: no muscle waisting NEURO: Awake; no lateralizing signs. SKIN: No Rash PSYCH; Flat affect Vitals/I&O's: Vital Signs Temp Pulse Resp BP Pulse Ox 97.3 F L 74 27 H 160/70 H 92 05/19/20 04:00 05/19/20 07:14 05/19/20 07:14 05/19/20 07:00 05/19/20 07:14 Oxygen Flow Rate (L/min) 60 Oxygen Delivery Method Bi-pap Weight: 68.2 kg Body Mass Index (BMI) 24.5 Intake and Output for Last 24 Hours 05/17/20 05/18/20 05/19/20 23:59 23:59 23:59 Intake Total 1000 / 1000 410 / 460 50 / 50 Output Total 1725 / 1725 2400 / 2625 575 / 575 Balance -725 / -725 -1989 / -2165 -525 / -525 Microbiology Past 72 Hours 05/16/20 04:00 Urine, Clean Catch Urine Culture - Final Culture exhibits no growth. 05/15/20 12:05 Blood Culture (Wb) - Anticubital Left Blood Culture - Preliminary No growth in 48 hours. 05/15/20 11:55 Blood Culture (Wb) - Anticubital Right Blood Culture - Preliminary No growth in 48 hours. Laboratory Results 05/19/20 04:40: WBC 15.2 H, RBC 2.83 L, Hgb 8.8 L, Hct 27.4 L, MCV 96.8 H, MCH 31.1, MCHC 32.1, RDW Std Deviation 52.3 H, RDW Coeff of Jeanne 14.9 H, Plt Count 355, MPV 9.2, Differential Comment SCANNED 05/19/20 04:40: Sodium 141, Potassium 4.2, Chloride 108 H, Carbon Dioxide 27.0, Anion Gap 6, BUN 52 H, Creatinine 1.31 H, Estim Creat Clear Calc 42.75, Est GFR (MDRD) Af Amer 68, Est GFR (MDRD) Non-Af 56 L, BUN/Creatinine Ratio 39.7 H, Glucose 113 H, Calcium 8.2 L, Total Bilirubin 0.80, AST 39 H, ALT 61, Alkaline Phosphatase 89, Total Protein 6.5, Albumin 2.1 L, Globulin 4.4 H, Albumin/Globulin Ratio 0.5 L Current Medications Acetaminophen (Acetaminophen 325 Mg Tablet) 650 mg PO Q6H PRN PRN PRN Reason: Pain Score 1-10/Temp > 100.7 F Last Admin: 05/15/20 20:44 Dose: 650 mg Documented by: Albuterol Sulfate (Albuterol Sulfate 8 Gm Inhaler (60 Puffs)) 2 puff INHALATION Q4H PRN PRN PRN Reason: Shortness of breath, wheezing Albuterol Sulfate (Albuterol Sulfate 8 Gm Inhaler (60 Puffs)) 1 puff INHALATION Q6HWA.RT [facility] Albuterol/Ipratropium (Ipratropium/Albuterol Sulfate 3 Ml Ampul.Neb) 3 ml INH ALATION Q4HWA.RT [facility] Last Admin: 05/19/20 07:13 Dose: 3 ml Documented by: Amiodarone HCl (Amiodarone 200 Mg Tablet) 200 mg PO DAILY [facility] Last Admin: 05/18/20 10:31 Dose: 200 mg Documented by: Apixaban (Apixaban 5 Mg Tablet) 5 mg PO BID [facility] Last Admin: 05/18/20 21:41 Dose: 5 mg Documented by: Aspirin (Aspirin E.C. 81 Mg Tablet) 81 mg PO DAILY@0800 [facility] Last Admin: 05/18/20 10:31 Dose: 81 mg Documented by: Dexamethasone Sodium Phosphate (Dexamethasone 10 Mg/Ml Vial) 6 mg IV DAILY [facility] Last Admin: 05/18/20 10:31 Dose: 6 mg Documented by: Remdesivir (Investigational) (100 mg/ Sodium Chloride) 250 mls @ 125 mls/hr IV DAILY [facility]; Protocol Stop: 05/20/20 11:59 Last Infusion: 05/18/20 13:21 Dose: Infused Documented by: Metoprolol Tartrate (Metoprolol Tartrate 25 Mg Tablet) 25 mg PO DAILY [facility] Last Admin: 05/18/20 10:33 Dose: 25 mg Documented by: Ondansetron HCl (Ondansetron 4 Mg/2 Ml Vial) 4 mg IV Q8H PRN PRN PRN Reason: NAUSEA/VOMITING Oxycodone HCl (Oxycodone 5 Mg Tablet) 5 mg PO Q6H PRN PRN PRN Reason: Pain 1-10 or Fever Rosuvastatin Calcium (Rosuvastatin Calcium 10 Mg Tablet) 10 mg PO QHS [facility] Last Admin: 05/18/20 21:41 Dose: 10 mg Documented by: Senna/Docusate Sodium (Senna/Docusate Sodium 1 Tablet) 2 tablet PO BID PRN PRN Reason: Constipation Sodium Chloride (0.9% Saline Lock 10 Ml Syringe) 10 - 40 ml IV UD PRN PRN Reason: SALINE FLUSH Last Admin: 05/16/20 15:36 Dose: 10 ml Documented by: Sodium Chloride (0.9% Saline Lock 10 Ml Syringe) 10 - 40 ml IV UD PRN PRN Reason: SALINE FLUSH STROKE Vital Signs/Narrative: Vital Signs Temp Pulse Resp BP Pulse Ox 05/19/20 07:14 73 27 H 92 05/19/20 07:00 71 26 H 160/70 H 93 05/19/20 06:00 67 20 H 160/63 H 96 05/19/20 05:25 66 21 H 91 05/19/20 05:00 64 18 106/77 90 05/19/20 04:00 97.3 F L 64 21 H 150/65 H 91 Medical Necessity - Tobacco Use Smoking Status: Former smoker Tobacco Use: Non-smoker Assessment/Plan All Active Problems (Last Updated 05/15/20 @ 16:[address] Carlene Gamboa MD) Acute hypoxemic respiratory failure due to COVID-19 (Acute) Pulmonary edema (Acute) CHF (congestive heart failure) (Acute) Anemia (Acute) Patient is a 80-year-old gentleman with recent admission at [facility] for bilateral calcaneal fracture. Hospital stay was complicated by pulmonary emboli discharged on systemic anticoagulation presented to the emergency department with progressive shortness of breath suspect of acute hypoxic respiratory failure made. Subsequent COVID-19 assay came back positive 1. Acute hypoxic respiratory failure ?Secondary to COVID-19 pneumonia as well as acute on chronic CHF with preserved ejection fraction. Patient has been admitted to the intensive care unit. Patient managed on noninvasive ventilation with consultation placed to pulmonary medicine -05/17/2020: Patient remains in ICU without much significant improvement in his overall condition. Remains on noninvasive ventilation BiPAP. Patient did consent to remdesivir use. Also scheduled to receive convalescent plasma -05/18/2020 patient condition remains critical requiring noninvasive ventilation with high FiO2. -; Has received convalescent and remains on remdesivir and Decadron; Patient seen in the ICU remains on BiPAP attempts to wean patient off BiPAP to airvo was unsuccessful patient condition continues to deteriorate. Case discussed with pulmonary medicine. Plan is for patient to be intubated in view of his impending respiratory failure 2. Acute COVID-19 pneumonia ?Admitted to the intensive care unit patient managed with empiric antibiotics as well as Decadron. Patient already on systemic anticoagulation. Consult was placed to both infectious disease as well as pulmonary medicine -05/18/2020; patient did receive convalescent plasma the day prior. 3. Severe sepsis secondary to patient's acute pneumonia ?Management as discussed above 4. Acute on chronic congestive heart failure with preserved ejection fraction ?Patient managed with fluid restriction as well as diuretics with Lasix. 2D echo ordered; results pending 5. Anemia - Secondary to chronic disorder monitoring H&H and transfuse if patient becomes symptomatic or hemoglobin falls below 7 -05/17/2020; drop in patient hemoglobin level however currently does not meet criteria for blood transfusion -05/18/2020 hemoglobin down to 7.8. 6. Elevated cardiac enzymes ?Secondary to non-STEMI type II as a result of demand ischemia EKG did not reveal any acute ST?T changes 7. Recent diagnosis of pulmonary embolism -patient is on systemic anticoagulation with Eliquis did continue 8. Traumatic bilateral calcaneal fracture -Has bilateral lower extremity cast -05/17/2020: Plan is to involve physical therapy once patient is medically stable to participate in PT 9. Coronary artery disease -status post CABG 10. Heart disease ?Status post aortic valve replacement with bioprosthetic valve 11. Dyslipidemia ?Patient is on Crestor did continue 12. Paroxysmal A. fib ?Rate controlled on amiodarone; Patient on systemic anticoagulation with Eliquis 13. DVT prophylaxis ?Patient is on systemic anticoagulation with Eliquis Inpatient E&M: [id number] [facility] L3
[2020-05-19] MEDS: Midazolam 2 MG/2 ML Syringe IV (09:19)
[2020-05-19] MEDS: Etomidate 20 MG/10 ML Vial IV (09:20)
--- NOTE | 2020-05-19 09:28 | RAD_ITS ---
STUDY: X-RAY CHEST REASON FOR EXAM: Male, 80 years old. INTUBATION. ETT AND OG PLACEMENT. IMAGE ALREADY REVIEWED BY DR. JENNIE FORDE. COVID-19 TECHNIQUE: Single AP portable view of the chest. COMPARISON: Comparison is made with prior study dated 05/19/2020 at 6:48 AM. FINDINGS: The endotracheal tube has been placed. The tip is at 4.3 cm proximal to the donaldo. An orogastric tube is seen with the tip in the fundal portion of the stomach. Stable increased interstitial markings in both lungs with areas of confluence worse in the right upper lobe and right lower lobe. There is no demonstrated pleural abnormality. Sternal cerclage wires and vascular clips are present from a prior sternotomy and coronary artery bypass graft procedure (CABG). Normal mediastinum and josé miguel. Normal visualized pulmonary arteries. There is atherosclerotic tortuosity of the aortic arch and descending thoracic aorta. There are diffuse degenerative changes of the visualized thoracic spine. There is degenerative osteoarthritis of the bilateral shoulders. There is no demonstrated abnormality of the visualized soft tissue structures of the upper abdomen. RAD/Chest 1 View (Portable) IMPRESSION: The endotracheal tube is at 4.3 cm approximately the donaldo. The tip of the orogastric tube is in the fundal portion of the stomach. The lungs are unchanged. Electronically Signed: Behzad Jimenez, at 15:34 EDT , Service support ,
[2020-05-19] MEDS: Propofol 10MG/Ml 1,000 MG/100 ML Bottle 4.1 MG CONT INF (09:30)
[2020-05-19 10:29] LABS: CPK Total, Creatine Kinase 122 U/L (39-308); Triglycerides 163 mg/dL
[2020-05-19 10:51] LABS: Allen Test Negative; Base Excess -2 mmol/L (-2 to +2); Bicarbonate 24.1 mmol/L (22-26); Blood Gas Specimen Type ART; FI02 100; Mode AC; O2 Delivery Device Adult Vent; PEEP 12; PO2 60 mmHG (75-100); RR 14; SITE R Radial; SO2 88 % (95-99); Total Carbon Dioxide 26 mmol/L; Vt 450; pCO2 45.9 mmHg (35-45); pH 7.33 (7.35-7.45)
[2020-05-19] MEDS: dexAMETHasone 10 MG/ML Vial 6 MG IV (11:13)
[2020-05-19] MEDS: Albuterol Sulfate 8 gm Inhaler (60 puffs) 2 PUFF INHALATION (11:25)
--- NOTE | 2020-05-19 11:33 | PCM.NTREPORT ---
Nutrition Therapy Report - History Nutrition Services has been consulted to:: Manage enteral nutrition Current diet / nutrition support order:: clear liquids - Anthropometric Measurements Height:: 5 ft 7 in Weight:: 68.2 kg Body Mass Index (BMI):: 23.5 - Relevant Labs Relevant Labs:: WBC 15.2 K/mm3 (4.4-11.0) H 05/19/20 04:40 RBC 2.83 M/mm3 (4.6-6.2) L 05/19/20 04:40 Hgb 8.8 g/dL (13.0-16.5) L 05/19/20 04:40 Hct 27.4 % (40-54) L 05/19/20 04:40 MCV 96.8 fL (80-94) H 05/19/20 04:40 MCHC 31.6 g/dL (32-36) L 05/18/20 04:40 RDW Std Deviation 52.3 fl (35.1-43.9) H 05/19/20 04:40 RDW Coeff of Jeanne 14.9 % (11.6-14.6) H 05/19/20 04:40 Immature Gran % (Auto) 2.000 % (0.0-0.9) H 05/16/20 04:00 Neut % (Auto) 92.7 % (47-70) H 05/16/20 04:00 Lymph % (Auto) 3.7 % (19-41) L 05/16/20 04:00 Absolute Neuts (auto) 15.8 X10^3/uL (2.0-7.7) H 05/16/20 04:00 Absolute Lymphs (auto) 0.63 X10^3/uL (0.83-4.51) L 05/16/20 04:00 PT 26.8 SECONDS (11.7-14.9) H 05/16/20 04:00 APTT 43.1 Seconds (24.1-36.2) H 05/15/20 11:55 Fibrinogen 819 mg/dl (203-444) H 05/15/20 11:55 D-Dimer Quant (PE/DVT) 1.24 FEU/ug/m (0.27-0.49) H* 05/15/20 11:55 Sodium 134 mmol/L (136-145) L 05/15/20 11:55 Chloride 108 mmol/L (98-107) H 05/19/20 04:40 BUN 52 mg/dL (7-18) H 05/19/20 04:40 Creatinine 1.31 mg/dL (0.70-1.30) H 05/19/20 04:40 Est GFR (MDRD) Af Amer 59 mL/min (>60) L 05/17/20 05:30 Est GFR (MDRD) Non-Af 56 mL/min (>60) L 05/19/20 04:40 BUN/Creatinine Ratio 39.7 RATIO (10-20) H 05/19/20 04:40 Glucose 113 mg/dL (74-106) H 05/19/20 04:40 Lactic Acid 2.3 mmol/L (0.4-1.9) H* 05/15/20 17:00 Calcium 8.2 mg/dL (8.5-10.1) L 05/19/20 04:40 Total Bilirubin 1.10 mg/dL (0.20-1.00) H 05/15/20 11:55 AST 39 U/L (15-37) H 05/19/20 04:40 ALT 63 U/L (16-61) H 05/18/20 04:40 Lactate Dehydrogenase 473 U/L (87-241) H 05/15/20 11:55 Troponin I 0.099 ng/mL (<0.045) H 05/15/20 23:30 C-React Prot Ext Range 261.00 mg/L (0.0-3.0) H 05/15/20 11:55 B-Natriuretic Peptide 644.0 pg/mL (0-100) H 05/15/20 11:55 Total Protein 6.0 g/dL (6.4-8.2) L 05/18/20 04:40 Albumin 2.1 g/dL (3.2-5.0) L 05/19/20 04:40 Globulin 4.4 g/dL (2.2-4.2) H 05/19/20 04:40 Albumin/Globulin Ratio 0.5 RATIO (0.9-2.4) L 05/19/20 04:40 Procalcitonin 5.84 ng/mL (0.00-0.09) H 05/15/20 17:00 - Assessment Food / Nutrition-Related History:: Discussed in ICU rounds. Pt intubated this AM. Per cynthia Rebollar for enteral nutrition support. Wt decrease of 0.4kg since last review. Given x1 lasix. Poor PO intake since admission (4 days) d/t resp. status. - Nutrition Diagnosis Problem / Etiology / Signs & Symptoms (PES):: Predicted suboptimal energy intake related to recent hospitalization, bilat calcaneal fxs, COVID-19 as evidenced by limited energy intake since admission, reported wt loss of 6.4kg. Unable to confirm malnutrition at this time d/t inability to interview pt, however- strongly suspect some degree of malnutrition. Evidence of Malnutrition Exists:: No - Nutrition Intervention Nutrition Prescription:: Re-estimated calorie needs: 2248-8131/day; 95-105 g protein/day. - Food / Nutrient Delivery Interventions Summary of nutrition intervention:: Will change to NPO while intubated and order enteral nutrition support. Nutrition support ordered as / adjusted to:: If pt to remain intubated, recommend enteral nutrition support via gastric tube- Vital AF 1.2 at goal rate of 60mL/hour w/ 100mL H2O flush every 4 hours to provide 1728 calories, 108 g protein, and 1767mL total fluid/day. Enteral nutrition support will be administered via gravity feed bag. Total formual to be administered in 24 hours: 1440mL. Recommend 120mL for first 4 hours (approx. 10 drops/minute, 3 drops per 15 seconds); increase to 180mL for next 4 hours (approx. 15 drops/minute, 4 drops per 15 seconds); Goal rate is 240mL every 4 hours (approx 20 drops/minute, 5 drops per 15 seconds). - MNT Monitoring Further MNT monitoring and evaluation required?: Yes MNT Follow-up in:: 1-2 days
[2020-05-19] MEDS: Vital AF 1.2 Cal Liquid 1,000 ML 60 ML GT (13:07)
[2020-05-19] MEDS: APIXABAN 5 MG TABLET GT ×2 (13:08→20:51)
[2020-05-19] MEDS: Amiodarone 200 MG Tablet GT (13:08)
[2020-05-19] MEDS: Aspirin 81 MG TAB.CHEW GT (13:08)
[2020-05-19] MEDS: Metoprolol Tartrate 25 MG Tablet GT (13:08)
[2020-05-19] MEDS: Propofol 10MG/Ml 1,000 MG/100 ML Bottle 8.2 MG CONT INF (13:45)
--- NOTE | 2020-05-19 13:48 | PCM.PN.ID ---
Patient Problems: Active and Suspected Problems (Last Updated 05/15/20 @ 16:[address] Carlene Gamboa MD) Acute hypoxemic respiratory failure due to COVID-19 (Acute) Pulmonary edema (Acute) CHF (congestive heart failure) (Acute) Anemia (Acute) Subjective: Intubated this AM with worsened hypoxia and fatigue. No fever. - Physical Exam Vitals/I&O's: Vital Signs Temp Pulse Resp BP Pulse Ox 100.1 F H 73 18 78/54 L 94 05/19/20 12:00 05/19/20 13:33 05/19/20 13:05 05/19/20 12:00 05/19/20 13:05 Oxygen Flow Rate (L/min) 60 Oxygen Delivery Method Mechanical Ventilator Weight: 68.2 kg Body Mass Index (BMI) 23.5 Intake and Output for Last 24 Hours 05/17/20 05/18/20 05/19/20 23:59 23:59 23:59 Intake Total 1000 / 1000 410 / 460 419.45 / 419.45 Output Total 1725 / 1725 2400 / 2625 1275 / 1275 Balance -725 / -725 -1990 / -2165 -855.55 / -855.55 General: No apparent distress, Non-Cooperative Lungs: Diminished Cardiovascular: Regular rate, Regular Rhythm Abdomen: Soft, Non Tender, Non-Distended Skin: No rashes Microbiology Past 72 Hours 05/16/20 04:00 Urine, Clean Catch Urine Culture - Final Culture exhibits no growth. 05/15/20 12:05 Blood Culture (Wb) - Anticubital Left Blood Culture - Preliminary No growth in 48 hours. 05/15/20 11:55 Blood Culture (Wb) - Anticubital Right Blood Culture - Preliminary No growth in 48 hours. Laboratory Results 05/19/20 04:40: WBC 15.2 H, RBC 2.83 L, Hgb 8.8 L, Hct 27.4 L, MCV 96.8 H, MCH 31.1, MCHC 32.1, RDW Std Deviation 52.3 H, RDW Coeff of Jeanne 14.9 H, Plt Count 355, MPV 9.2, Differential Comment SCANNED 05/19/20 04:40: Sodium 141, Potassium 4.2, Chloride 108 H, Carbon Dioxide 27.0, Anion Gap 6, BUN 52 H, Creatinine 1.31 H, Estim Creat Clear Calc 42.75, Est GFR (MDRD) Af Amer 68, Est GFR (MDRD) Non-Af 56 L, BUN/Creatinine Ratio 39.7 H, Glucose 113 H, Calcium 8.2 L, Total Bilirubin 0.80, AST 39 H, ALT 61, Alkaline Phosphatase 89, Total Protein 6.5, Albumin 2.1 L, Globulin 4.4 H, Albumin/Globulin Ratio 0.5 L 05/19/20 04:40: Total Creatine Kinase 122, Triglycerides 163 05/19/20 10:43: Specimen Type ART, Sample Site R Radial, pH 7.33 L, Bicarbonate Actual 24.1, Total CO2 26, Base Excess -2, O2 Saturation 88 L, O2 % 100, ABG pCO2 45.9 H, ABG pO2 60 L, Arturo Test Negative, Respiration Rate 14, O2 Delivery Device Adult Vent, Vent Mode AC, Tidal Volume 450, POC PEEP 12 Current Medications Acetaminophen (Acetaminophen 325 Mg Tablet) 650 mg PO Q6H PRN PRN PRN Reason: Pain Score 1-10/Temp > 100.7 F Last Admin: 05/15/20 20:44 Dose: 650 mg Documented by: Acetaminophen (Acetaminophen 650 Mg/20 Ml Udc) 650 mg GT Q6H PRN PRN PRN Reason: Pain Score 1-10/Temp > 100.7 F Albuterol Sulfate (Albuterol Sulfate 8 Gm Inhaler (60 Puffs)) 2 puff INHALATION Q4H PRN PRN PRN Reason: Shortness of breath, wheezing Albuterol/Ipratropium (Ipratropium/Albuterol Sulfate 3 Ml Ampul.Neb) [address] [facility] Amiodarone HCl (Amiodarone 200 Mg Tablet) [address] [facility] Last Admin: 05/19/20 13:08 Dose: 200 mg Documented by: Apixaban (Apixaban 5 Mg Tablet) [address] [facility] Last Admin: 05/19/20 13:08 Dose: 5 mg Documented by: Aspirin (Aspirin 81 Mg Tab.Chew) 81 mg GT DAILY@0800 [facility] Last Admin: 05/19/20 13:08 Dose: 81 mg Documented by: Dexamethasone Sodium Phosphate (Dexamethasone 10 Mg/Ml Vial) [address] [facility] Last Admin: 05/19/20 11:13 Dose: 6 mg Documented by: Remdesivir (Investigational) (100 mg/ Sodium Chloride) 250 mls @ 125 mls/hr IV DAILY [facility]; Protocol Stop: 05/20/20 11:59 Last Infusion: 05/19/20 13:24 Dose: Infused Documented by: Propofol (Diprivan) 1,000 mg in 100 mls @ 4.092 mls/hr CONT INF .Q12H [facility]; Protocol Last Titration: 05/19/20 13:30 Dose: 61.09 mcg/kg/min, 25 mls/hr Documented by: Fentanyl Citrate 1,000 mcg/ (Sodium Chloride) 100 mls @ 5 mls/hr CONT INF .Q20H [facility]; Protocol Last Titration: 05/19/20 13:31 Dose: 200 mcg/hr, 20 mls/hr Documented by: Enteral Nutritional Formula (Vital Af 1.2 [place] Liquid) 1,000 mls @ 60 mls/hr GT .[id number] [facility] Last Admin: 05/19/20 13:07 Dose: 60 mls/hr Documented by: Ipratropium [place] (Ipratropium 0.5 Mg/2.5 Ml Solution) 0.[address] [facility] Metoprolol Tartrate (Metoprolol Tartrate 25 Mg Tablet) [address] [facility] Last Admin: 05/19/20 13:08 Dose: 25 mg Documented by: Ondansetron HCl (Ondansetron 4 Mg/2 Ml Vial) 4 mg IV Q8H PRN PRN PRN Reason: NAUSEA/VOMITING Oxycodone HCl (Oxycodone 5 Mg Tablet) 5 mg GT Q6H PRN PRN PRN Reason: Pain 1-10 or Fever Rosuvastatin Calcium (Rosuvastatin Calcium 10 Mg Tablet) [address] [facility] Senna/Docusate Sodium (Senna/Docusate Sodium 1 Tablet) 2 tablet GT BID PRN PRN Reason: Constipation Sodium Chloride (0.9% Saline Lock 10 Ml Syringe) 10 - 40 ml IV UD PRN PRN Reason: SALINE FLUSH Last Admin: 05/16/20 15:36 Dose: 10 ml Documented by: Sodium Chloride (0.9% Saline Lock 10 Ml Syringe) 10 - 40 ml IV UD PRN PRN Reason: SALINE FLUSH Medical Necessity - Tobacco Use Smoking Status: Former smoker Tobacco Use: Non-smoker Route of nutrition/ use of supplements: [] Nutritional Intake: [] IV Site: [] Barkley Catheter: [] - Assessment/Plan Antibiotics: [] Assessment/Plan: [] Active and Suspected Problems (Last Updated 05/15/20 @ 16:[address] Carlene Gamboa MD) Acute hypoxemic respiratory failure due to COVID-19 (Acute) Pulmonary edema (Acute) CHF (congestive heart failure) (Acute) Anemia (Acute) On dex and remdesivir. Got plasma. Still high fiO2, now intubated. Will follow
--- NOTE | 2020-05-19 18:00 | NURSING ---
Called to room by [employer], pt awake and trying to sit up. SpO2 74%. RT notified pt taken off vent and ventilated via BMV. NO improvement in SpO2. Dr. Bolivar notified and order received for Nimbex. Propofol restarted, pt placed back on ventilator 16-450-100%-18. SpO2 slowly improving. Dr. Bolivar notified and stated to not give Nimbex.
[2020-05-19] MEDS: Chlorhexidine 15 ML PO (23:33)
[2020-05-20] VITALS (61 sets, daily range): BP systolic 78–149; BP diastolic 42–65; PULSE 59–87; RESP 14–92; TEMP 37.7–38.7; O2SAT 19–96
[2020-05-20] MEDS: Propofol 10MG/Ml 1,000 MG/100 ML Bottle 4.1 MG CONT INF (01:48)
[2020-05-20] MEDS: Acetaminophen 650 MG/20 ML UDC GT (01:49)
[2020-05-20 05:22] LABS: Hematocrit 29.3 % (40-54); Hemoglobin 8.8 g/dL (13.0-16.5); Mean Corpuscular Hgb 31.3 pg (27.0-32.0); Mean Corpuscular Volume 104.3 fL (80-94); Mean Platelet Vol. 9.6 fl (6.2-12.0); Platelet Count 361 K/mm3 (150-450); RBC Distribution Width CV 15.9 % (11.6-14.6); Red Blood Count 2.81 M/mm3 (4.6-6.2); White Blood Count 20.7 K/mm3 (4.4-11.0)
[2020-05-20 05:28] LABS: Scan Indicated on CBC? Y/N NO
--- NOTE | 2020-05-20 06:05 | PCM.PN.INT ---
Subjective: The patient was seen and examined at the bedside this morning. Events from the last 24 hours have been reviewed. The patient remains febrile with a T-max overnight of 101.2 ?F. Oxygenation status is stable on assist control mode of mechanical ventilation with an FiO2 requirement of 85%. White blood cell count has increased to 20,000 this morning. Creatinine has worsened to 3.49. Urine output is decreasing. The patient remains on Eliquis and Decadron. The patient is currently documented to be overall net -3.1 L for the hospital admission. Objective: The patient's most recent lab work, culture data and imaging studies have all been personally reviewed. Surface echocardiogram revealed moderate concentric LVH with an ejection fraction of 65 to 75%. Diastolic dysfunction was noted along with a right ventricular systolic pressure estimated to be 40 mmHg. Coronavirus PCR was positive on May 15. Blood and urine cultures have shown no growth to date. General: - - Remains intubated, sedated and mechanically ventilated. HEENT: Atraumatic, Normocephalic Oral: No Gingival or Mucosal Lesions/ Ulcerations, - - Endotracheal and OG tubes remain in place Neck: Supple, No Nodes, Trachea Midline Lungs: Diminished, Tachypneic Cardiovascular: Regular rate, Regular Rhythm Abdomen: Bowel Sounds Present, Soft, Non Tender Extremities: No clubbing, No cyanosis, No edema Skin: No breakdown Musculoskeletal: No Tenderness to Palpation of Joints or Extremities Lymphatic: No Cervical, Supraclavicular, or Inguinal Adenopathy Neurological: - - No focal neurological deficits. Currently sedated on the ventilator. Vital Signs Temp Pulse Resp BP Pulse Ox 101.2 F H 80 21 H 114/62 93 05/20/20 06:00 05/20/20 06:00 05/20/20 06:00 05/20/20 06:00 05/20/20 06:00 Oxygen Flow Rate (L/min) 60 Oxygen Delivery Method Mechanical Ventilator Weight: 147 lb 0.773 oz Body Mass Index (BMI) 23.5 Intake and Output for Last 24 Hours 05/18/20 05/19/20 05/20/20 23:59 23:59 23:59 Intake Total 410 / 460 1026.21 / 1332.96 930.61 / 930.61 Output Total 2400 / 2625 1715 / 1735 40 / 40 Balance -1990 / -2165 -688.79 / -402.04 890.61 / 890.61 Labs (Last 48 Hours) 05/19/20 05/19/20 05/19/20 04:40 04:40 04:40 WBC 15.2 H Corrected WBC RBC 2.83 L Hgb 8.8 L Hct 27.4 L MCV 96.8 H MCH 31.1 MCHC 32.1 RDW Std Deviation 52.3 H RDW Coeff of Jeanne 14.9 H Plt Count 355 MPV 9.2 Differential Comment SCANNED Diff Path Review Specimen Type Sample Site pH Bicarbonate Actual Total CO2 Base Excess O2 Saturation O2 % ABG pCO2 ABG pO2 Arturo Test Respiration Rate O2 Delivery Device Vent Mode Tidal Volume POC PEEP Sodium 141 Potassium 4.2 Chloride 108 H Carbon Dioxide 27.0 Anion Gap 6 BUN 52 H Creatinine 1.31 H Estim Creat Clear Calc 42.75 Est GFR (MDRD) Af Amer 68 Est GFR (MDRD) Non-Af 56 L BUN/Creatinine Ratio 39.7 H Glucose 113 H Calcium 8.2 L Total Bilirubin 0.80 AST 39 H ALT 61 Alkaline Phosphatase 89 Total Creatine Kinase 122 Total Protein 6.5 Albumin 2.1 L Globulin 4.4 H Albumin/Globulin Ratio 0.5 L Triglycerides 163 05/19/20 05/20/20 05/20/20 10:43 04:00 04:00 WBC Cancelled Corrected WBC Cancelled RBC Cancelled Hgb Cancelled Hct Cancelled MCV Cancelled MCH Cancelled MCHC Cancelled RDW Std Deviation Cancelled RDW Coeff of Jeanne Cancelled Plt Count Cancelled MPV Cancelled Differential Comment Diff Path Review Cancelled Specimen Type ART Sample Site R Radial pH 7.33 L Bicarbonate Actual 24.1 Total CO2 26 Base Excess -2 O2 Saturation 88 L O2 % 100 ABG pCO2 45.9 H ABG pO2 60 L Arturo Test Negative Respiration Rate 14 O2 Delivery Device Adult Vent Vent Mode AC Tidal Volume 450 POC PEEP 12 Sodium Cancelled Potassium Cancelled Chloride Cancelled Carbon Dioxide Cancelled Anion Gap Cancelled BUN Cancelled Creatinine Cancelled Estim Creat Clear Calc Cancelled Est GFR (MDRD) Af Amer Cancelled Est GFR (MDRD) Non-Af Cancelled BUN/Creatinine Ratio Cancelled Glucose Cancelled Calcium Cancelled Total Bilirubin Cancelled AST Cancelled ALT Cancelled Alkaline Phosphatase Cancelled Total Creatine Kinase Total Protein Cancelled Albumin Cancelled Globulin Cancelled Albumin/Globulin Ratio Cancelled Triglycerides 05/20/20 05/20/20 05:15 05:15 WBC 20.7 H Corrected WBC RBC 2.81 L Hgb 8.8 L Hct 29.3 L MCV 104.3 H D MCH 31.3 MCHC 30.0 L D RDW Std Deviation 61.0 H RDW Coeff of Jeanne 15.9 H Plt Count 361 MPV 9.6 Differential Comment Diff Path Review Specimen Type Sample Site pH Bicarbonate Actual Total CO2 Base Excess O2 Saturation O2 % ABG pCO2 ABG pO2 Arturo Test Respiration Rate O2 Delivery Device Vent Mode Tidal Volume POC PEEP Sodium Pending Potassium Pending Chloride Pending Carbon Dioxide Pending Anion Gap Pending BUN Pending Creatinine Pending Estim Creat Clear Calc Est GFR (MDRD) Af Amer Pending Est GFR (MDRD) Non-Af Pending BUN/Creatinine Ratio Pending Glucose Pending Calcium Pending Total Bilirubin Pending AST Pending ALT Pending Alkaline Phosphatase Pending Total Creatine Kinase Total Protein Pending Albumin Pending Globulin Albumin/Globulin Ratio Triglycerides Microbiology 05/16/20 04:00 Urine, Clean Catch Urine Culture - Final Culture exhibits no growth. Clinical Impression(s) from Imaging Studies Chest X-Ray 05/15/20 11:59 IMPRESSION: Severe congestive heart failure. Electronically Signed: Moe Elam MD at 12:54 EDT Tel , Service support , Chest X-Ray 05/19/20 06:16 IMPRESSION: Improved aeration of both lungs with persistent increased interstitial markings worse in the right hemithorax. Electronically Signed: Behzad Jimenez, at 12:30 EDT , Service support , Chest X-Ray 05/19/20 09:28 IMPRESSION: The endotracheal tube is at 4.3 cm approximately the donaldo. The tip of the orogastric tube is in the fundal portion of the stomach. The lungs are unchanged. Electronically Signed: Behzad Jimenez, at 15:34 EDT , Service support , Medical Necessity - Tobacco Use Smoking Status: Former smoker Tobacco Use: Non-smoker Assessment/Plan All Active Problems (Last Updated 05/15/20 @ 16:[address] Carlene Gamboa MD) Acute hypoxemic respiratory failure due to COVID-19 (Acute) Pulmonary edema (Acute) CHF (congestive heart failure) (Acute) Anemia (Acute) RECOMMENDATIONS: 1. Continue current supportive measures including invasive mechanical ventilatory support. Wean FiO2 and PEEP to maintain oxygen saturations at or above 90% 2. Given fevers and relative clinical instability, consider starting empiric antimicrobials today. Will obtain sputum culture. 3. Continue bronchodilator therapy. 4. Continue systemic anticoagulation with Eliquis. 5. Continue Decadron as ordered. 6. Continue appropriate GI prophylaxis. 7. Continue tube feeds as ordered. 8. Wean Levophed to maintain a mean arterial pressure at or above 65 mmHg. IMPRESSIONS: 1. Acute hypoxemic respiratory failure secondary to Covid pneumonia Although attempts were made to utilize noninvasive positive pressure ventilatory support, the patient continued to decompensate from a respiratory perspective and did require intubation on May 19. Plan to continue current supportive measures with assist control mode of mechanical ventilation, with plans to wean FiO2 to maintain oxygen saturations at or above 90%. The patient is already systemically anticoagulated on Eliquis, which will be continued. Continue Decadron, with plans to complete a 10-day treatment course. The patient has already received convalescent plasma and has completed his treatment course of remdesivir. Given the patient's clinical instability, consideration can be given to starting empiric antimicrobials. Will obtain sputum culture. 2. Distributive shock The patient's hemodynamics became compromised as a consequence of the medications being utilized for sedation purposes. Plan to continue vasopressor support to maintain hemodynamic stability. Goal to maintain a mean arterial pressure at or above 65 mmHg. 3. Recent diagnosis of pulmonary embolism The patient was recently diagnosed with pulmonary emboli at an outside institution. Accordingly, systemic anticoagulation will be continued. 4. Acute kidney injury Likely prerenal in etiology and related to a component of ischemic ATN in the setting of #2. Plan to continue vasopressor support as ordered. Goal to maintain a mean arterial pressure at or above 65 mmHg. If the patient does not begin to improve from a renal perspective in the next 24 hours, will obtain nephrology consultation. 5. History of diastolic dysfunction/pulmonary hypertension/coronary artery disease status post CABG Continue outpatient cardiac regimen. 6. Self-reported history of asthma The patient will be continued on scheduled bronchodilator therapy. Continue supportive measures as noted above. 7. Anemia/chronic kidney disease/history of atrial fibrillation/hyperlipidemia/advanced age Complicates care, management, recovery and prognosis. Continue home medications as indicated. Continue tube feeds as tolerated. TIME: 40 minutes of critical care time, independent of procedures, was spent addressing the patient's acute hypoxemic respiratory failure secondary to Covid pneumonia, recent diagnosis of pulmonary embolism, severe sepsis secondary to Covid pneumonia, history of heart failure with preserved ejection fraction, self-reported history of asthma, review of all data and collaboration with the care team. [id number]) [phone] [id number] Critical care first hour
[2020-05-20 06:08] LABS: ALB/GLOB Ratio 0.5 RATIO (0.9-2.4); AST(SGOT) 66 U/L (15-37); Alanine Aminotransfer ALT/SGPT 69 U/L (16-61); Albumin, Serum 2.2 g/dL (3.2-5.0); Alkaline Phosphatase 106 U/L (45-117); Anion Gap 10 (5-15); BUN 81 mg/dL (7-18); BUN/Creat Ratio 23.2 RATIO (10-20); Calcium,Total 8.1 mg/dL (8.5-10.1); Chloride 110 mmol/L (98-107); Creatinine, Serum 3.49 mg/dL (0.70-1.30); EST Glomerular Filtration Rate 18 mL/min (>60); Est Glom Filt Rate - Afr Amer 22 mL/min (>60); Estimated Creatinine Clearance 16.05 ml/min; Globulin 4.6 g/dL (2.2-4.2); Glucose 143 mg/dL (74-106); Potassium 5.4 mmol/L (3.5-5.1); Protein, Total 6.8 g/dL (6.4-8.2); Sodium Level 141 mmol/L (136-145)
[2020-05-20] MEDS: Ipratropium/Albuterol Sulfate 3 ML AMPUL.NEB INHALATION ×4 (07:15→19:15)
--- NOTE | 2020-05-20 07:22 | PN_ITS ---
Patient Problems: Active and Suspected Problems (Last Updated 05/15/20 @ 16:[address] Carlene Gamboa MD) Acute hypoxemic respiratory failure due to COVID-19 (Acute) Pulmonary edema (Acute) CHF (congestive heart failure) (Acute) Anemia (Acute) Reason for Visit: Acute hypoxemic respiratory failure secondary to COVID-19 Subjective: Patient is a 80-year-old gentleman with recent admission at [facility] for bilateral calcaneal fracture. Hospital stay was complicated by pulmonary emboli discharged on systemic anticoagulation presented to the emergency department with progressive shortness of breath suspect of acute hypoxic respiratory failure made. Subsequent COVID-19 assay came back positive. Patient was initially managed on noninvasive ventilation BiPAP however condition continued to deteriorate resulting in patient being intubated on 05/19/2020 Patient seen sedated on the vent. Requiring high FiO2. WBC count trending up. Objective: GENERAL: on the vent HEENT: Atraumatic; EYES; Anicteric, Normal Conjunctiva NECK; supple, normal thyroid, RESPIRATORY: Diminished to auscultation CARDIOVASCULAR: Regular S1 S2, tachycardic GI: soft, normoactive bowel sounds, : No Renal angle tenderness; EXTREMITIES: bilateral Lower extremities in cast MUSCULOSKELETAL: no muscle waisting NEURO: on the vent SKIN: No Rash Vitals/I&O's: Vital Signs Temp Pulse Resp BP Pulse Ox 101.5 F H 85 20 H 97/53 L 90 05/20/20 07:00 05/20/20 07:00 05/20/20 07:00 05/20/20 07:00 05/20/20 07:00 Oxygen Flow Rate (L/min) 60 Oxygen Delivery Method Mechanical Ventilator Weight: 66.7 kg Body Mass Index (BMI) 23.5 Intake and Output for Last 24 Hours 05/18/20 05/19/20 05/20/20 23:59 23:59 23:59 Intake Total 410 / 460 1026.21 / 1332.96 947.51 / 947.51 Output Total 2400 / 2625 1715 / 1735 40 / 40 Balance -1990 / -2165 -688.79 / -402.04 907.51 / 907.51 Microbiology Past 72 Hours 05/16/20 04:00 Urine, Clean Catch Urine Culture - Final Culture exhibits no growth. 05/15/20 12:05 Blood Culture (Wb) - Anticubital Left Blood Culture - Preliminary No growth in 48 hours. 05/15/20 11:55 Blood Culture (Wb) - Anticubital Right Blood Culture - Preliminary No growth in 48 hours. Laboratory Results 05/19/20 04:40: Total Creatine Kinase 122, Triglycerides 163 05/19/20 10:43: Specimen Type ART, Sample Site R Radial, pH 7.33 L, Bicarbonate Actual 24.1, Total CO2 26, Base Excess -2, O2 Saturation 88 L, O2 % 100, ABG pCO2 45.9 H, ABG pO2 60 L, Arturo Test Negative, Respiration Rate 14, O2 Delivery Device Adult Vent, Vent Mode AC, Tidal Volume 450, POC PEEP 12 05/20/20 04:00: WBC Cancelled, Corrected WBC Cancelled, RBC Cancelled, Hgb Cancelled, Hct Cancelled, MCV Cancelled, MCH Cancelled, MCHC Cancelled, RDW Std Deviation Cancelled, RDW Coeff of Jeanne Cancelled, Plt Count Cancelled, MPV Cancelled, Diff Path Review Cancelled 05/20/20 04:00: Sodium Cancelled, Potassium Cancelled, Chloride Cancelled, Carbon Dioxide Cancelled, Anion Gap Cancelled, BUN Cancelled, Creatinine Cancelled, Estim Creat Clear Calc Cancelled, Est GFR (MDRD) Af Amer Cancelled, Est GFR (MDRD) Non-Af Cancelled, BUN/Creatinine Ratio Cancelled, Glucose Cancelled, Calcium Cancelled, Total Bilirubin Cancelled, AST Cancelled, ALT Cancelled, Alkaline Phosphatase Cancelled, Total Protein Cancelled, Albumin Cancelled, Globulin Cancelled, Albumin/Globulin Ratio Cancelled 05/20/20 05:15: WBC 20.7 H, RBC 2.81 L, Hgb 8.8 L, Hct 29.3 L, MCV 104.3 H D, MCH 31.3, MCHC 30.0 L D, RDW Std Deviation 61.0 H, RDW Coeff of Jeanne 15.9 H, Plt Count 361, MPV 9.6 05/20/20 05:15: Sodium 141, Potassium 5.4 H, Chloride 110 H, Carbon Dioxide 21.0, Anion Gap 10, BUN 81 H, Creatinine 3.49 H, Estim Creat Clear Calc 16.05, Est GFR (MDRD) Af Amer 22 L, Est GFR (MDRD) Non-Af 18 L, BUN/Creatinine Ratio 23.2 H, Glucose 143 H, Calcium 8.1 L, Total Bilirubin 0.80, AST 66 H, ALT 69 H, Alkaline Phosphatase 106, Total Protein 6.8, Albumin 2.2 L, Globulin 4.6 H, Albumin/Globulin Ratio 0.5 L Current Medications Acetaminophen (Acetaminophen 325 Mg Tablet) 650 mg PO Q6H PRN PRN PRN Reason: Pain Score 1-10/Temp > 100.7 F Last Admin: 05/15/20 20:44 Dose: 650 mg Documented by: Acetaminophen (Acetaminophen 650 Mg/20 Ml Udc) 650 mg GT Q6H PRN PRN PRN Reason: Pain Score 1-10/Temp > 100.7 F Last Admin: 05/20/20 01:49 Dose: 650 mg Documented by: Albuterol Sulfate (Albuterol Sulfate 8 Gm Inhaler (60 Puffs)) 2 puff INHALATION Q4H PRN PRN PRN Reason: Shortness of breath, wheezing Albuterol/Ipratropium (Ipratropium/Albuterol Sulfate 3 Ml Ampul.Neb) 3 ml INHALATION Q4HWA.RT [facility] Last Admin: 05/20/20 07:15 Dose: 3 ml Documented by: Amiodarone HCl (Amiodarone 200 Mg Tablet) 200 mg GT DAILY [facility] Last Admin: 05/19/20 13:08 Dose: 200 mg Documented by: Apixaban (Apixaban 5 Mg Tablet) 5 mg GT BID [facility] Last Admin: 05/19/20 20:51 Dose: 5 mg Documented by: Aspirin (Aspirin 81 Mg Tab.Chew) 81 mg GT DAILY@0800 [facility] Last Admin: 05/19/20 13:08 Dose: 81 mg Documented by: Chlorhexidine Gluconate (Chlorhexidine 15 Ml) 15 ml PO BID [facility] Last Admin: 05/19/20 23:33 Dose: 15 ml Documented by: Dexamethasone Sodium Phosphate (Dexamethasone 10 Mg/Ml Vial) 6 mg IV DAILY [facility] Last Admin: 05/19/20 11:13 Dose: 6 mg Documented by: Remdesivir (Investigational) (100 mg/ Sodium Chloride) 250 mls @ 125 mls/hr IV DAILY [facility]; Protocol Stop: 05/20/20 11:59 Last Infusion: 05/19/20 13:24 Dose: Infused Documented by: Propofol (Diprivan) 1,000 mg in 100 mls @ 4.092 mls/hr CONT INF .Q12H GIANNA; Protocol Last Titration: 05/20/20 07:00 Dose: 0 mcg/kg/min, 0 mls/hr Documented by: Fentanyl Citrate 1,000 mcg/ (Sodium Chloride) 100 mls @ 5 mls/hr CONT INF .Q20H GIANNA; Protocol Last Admin: 05/20/20 07:00 Dose: 75 mcg/hr, 7.5 mls/hr Documented by: Enteral Nutritional Formula (Vital Af 1.2 Colton Liquid) 1,000 mls @ 60 mls/hr GT .[id number] [facility] Last Admin: 05/20/20 06:15 Dose: Not Given Documented by: Norepinephrine Bitartrate 8 mg (/ Sodium Chloride) 250 mls @ 9.375 mls/hr CONT INF .[id number] [facility]; Protocol Last Titration: 05/20/20 07:00 Dose: 5 mcg/min, 9.4 mls/hr Documented by: Famotidine 20 mg/ Sodium (Chloride) 10 mls @ 300 mls/hr IV Q12 GIANNA Metoprolol Tartrate (Metoprolol Tartrate 25 Mg Tablet) 25 mg GT DAILY [facility] Last Admin: 05/19/20 13:08 Dose: 25 mg Documented by: Ondansetron HCl (Ondansetron 4 Mg/2 Ml Vial) 4 mg IV Q8H PRN PRN PRN Reason: NAUSEA/VOMITING Oxycodone HCl (Oxycodone 5 Mg Tablet) 5 mg GT Q6H PRN PRN PRN Reason: Pain 1-10 or Fever Rosuvastatin Calcium (Rosuvastatin Calcium 10 Mg Tablet) 10 mg GT QHS [facility] Last Admin: 05/19/20 20:51 Dose: 10 mg Documented by: Senna/Docusate Sodium (Senna/Docusate Sodium 1 Tablet) 2 tablet GT BID PRN PRN Reason: Constipation Sodium Chloride (0.9% Saline Lock 10 Ml Syringe) 10 - 40 ml IV UD PRN PRN Reason: SALINE FLUSH Last Admin: 05/16/20 15:36 Dose: 10 ml Documented by: Sodium Chloride (0.9% Saline Lock 10 Ml Syringe) 10 - 40 ml IV UD PRN PRN Reason: SALINE FLUSH STROKE Vital Signs/Narrative: Vital Signs Temp Pulse Resp BP Pulse Ox 05/20/20 07:00 101.5 F H 85 20 H 97/53 L 90 05/20/20 06:45 101.5 F H 85 22 H 86/56 L 90 05/20/20 06:30 101.4 F H 84 20 H 87/57 L 90 05/20/20 06:15 101.3 F H 87 20 H 91/54 L 87 05/20/20 06:00 101.2 F H 80 21 H 114/62 93 05/20/20 05:00 101.1 F H 78 16 102/61 90 05/20/20 04:15 101.1 F H 74 18 102/65 92 05/20/20 04:00 101.1 F H 74 18 96/57 L 89 05/20/20 03:55 74 19 H 90 05/20/20 03:45 101.0 F H 71 19 H 130/58 H 94 05/20/20 03:30 100.9 F H 73 20 H 149/55 H 95 Medical Necessity - Tobacco Use Smoking Status: Former smoker Tobacco Use: Non-smoker Assessment/Plan All Active Problems (Last Updated 05/15/20 @ 16:[address] Carlene Gamboa MD) Acute hypoxemic respiratory failure due to COVID-19 (Acute) Pulmonary edema (Acute) CHF (congestive heart failure) (Acute) Anemia (Acute) Patient is a 80-year-old gentleman with recent admission at [facility] for bilateral calcaneal fracture. Hospital stay was complicated by pulmonary emboli discharged on systemic anticoagulation presented to the emergency department with progressive shortness of breath suspect of acute hypoxic respiratory failure made. Subsequent COVID-19 assay came back positive 1. Acute hypoxic respiratory failure ?Secondary to COVID-19 pneumonia as well as acute on chronic CHF with preserved ejection fraction. Patient has been admitted to the intensive care unit. Patient managed on noninvasive ventilation with consultation placed to pulmonary medicine -05/17/2020: Patient remains in ICU without much significant improvement in his overall condition. Remains on noninvasive ventilation BiPAP. Patient did consent to remdesivir use. Also scheduled to receive convalescent plasma -05/18/2020 patient condition remains critical requiring noninvasive ventilation with high FiO2. -; Has received convalescent and remains on remdesivir and Decadron; Patient seen in the ICU remains on BiPAP attempts to wean patient off BiPAP to airvo was unsuccessful patient condition continues to deteriorate. Case discussed with pulmonary medicine. Plan is for patient to be intubated in view of his impending respiratory failure -05/20/2020; patient condition did worsen necessitating patient being placed on the vent remains on the vent with high FiO2 requirements 2. Acute COVID-19 pneumonia ?Admitted to the intensive care unit patient managed with empiric antibiotics as well as Decadron. Patient already on systemic anticoagulation. Consult was placed to both infectious disease as well as pulmonary medicine -05/18/2020; patient did receive convalescent plasma the day prior. 3. Severe sepsis secondary to patient's acute pneumonia ?Management as discussed above 4. Acute on chronic congestive heart failure with preserved ejection fraction ?Patient managed with fluid restriction as well as diuretics with Lasix. 2D echo ordered; results pending 5. Anemia - Secondary to chronic disorder monitoring H&H and transfuse if patient becomes symptomatic or hemoglobin falls below 7 -05/17/2020; drop in patient hemoglobin level however currently does not meet criteria for blood transfusion -05/18/2020 hemoglobin down to 7.8. 6. Elevated cardiac enzymes ?Secondary to non-STEMI type II as a result of demand ischemia EKG did not reveal any acute ST?T changes 7. Recent diagnosis of pulmonary embolism -patient is on systemic anticoagulation with Eliquis did continue 8. Traumatic bilateral calcaneal fracture -Has bilateral lower extremity cast -05/17/2020: Plan is to involve physical therapy once patient is medically stable to participate in PT 9. Coronary artery disease -status post CABG 10. Heart disease ?Status post aortic valve replacement with bioprosthetic valve 11. Dyslipidemia ?Patient is on Crestor did continue 12. Paroxysmal A. fib ?Rate controlled on amiodarone; Patient on systemic anticoagulation with Eliquis 13. DVT prophylaxis ?Patient is on systemic anticoagulation with Eliquis Inpatient E&M: [id number] [facility] L3
[2020-05-20] MEDS: dexAMETHasone 10 MG/ML Vial 6 MG IV (10:08)
[2020-05-20] MEDS: Aspirin 81 MG TAB.CHEW GT ×2 (10:09)
[2020-05-20] MEDS: Chlorhexidine 15 ML PO (10:09)
[2020-05-20] MEDS: Amiodarone 200 MG Tablet GT (10:10)
[2020-05-20] MEDS: APIXABAN 5 MG TABLET GT ×2 (10:10→22:18)
[2020-05-20 10:48] LABS: Procalcitonin 2.73 ng/mL (0.00-0.09)
--- NOTE | 2020-05-20 11:13 | CASEMGMT ---
RN CM Continued Stay Note: participated in ICU interdisciplinary rounds. Patient extubated this am and remains on airvo with high oxygen needs. On Levophed, Diprivan, Fentanyl and 3rd dose of Remdesivir was given on 05/19. DC plans deferred @ this time, but CM will need to follow for PT/OT needs at home due to recent ankle fx. Family had been caring for patient at home, but he had been able to scoot and use arms to stabilize for transfer prior. DC PLAN: undetermined. Fátima HUBBARD RN ACM
[2020-05-20] MEDS: Famotidine 200 MG/20 ML MDV 20 MG in 0.9% Normal Saline (Pres. free 8 ML 300 MG IV (12:14)
[2020-05-20] MEDS: Lactated Ringers 500 ML 999 ML IV ×2 (12:15→21:28)
[2020-05-20] MEDS: Senna/Docusate Sodium 1 Tablet 2 TABLET GT ×2 (12:40→22:18)
--- NOTE | 2020-05-20 15:15 | PN.ID_ITS ---
Patient Problems: Active and Suspected Problems (Last Updated 05/15/20 @ 16:[address] Carlene Gamboa MD) Acute hypoxemic respiratory failure due to COVID-19 (Acute) Pulmonary edema (Acute) CHF (congestive heart failure) (Acute) Anemia (Acute) Subjective: On vent, now in shock, high PCT - Physical Exam Vitals/I&O's: Vital Signs Temp Pulse Resp BP Pulse Ox 101 F H 69 22 H 91/52 L 93 05/20/20 12:00 05/20/20 13:54 05/20/20 13:54 05/20/20 12:15 05/20/20 13:54 Oxygen Flow Rate (L/min) 50 Oxygen Delivery Method Mechanical Ventilator Weight: 66.7 kg Body Mass Index (BMI) 23.5 Intake and Output for Last 24 Hours 05/18/20 05/19/20 05/20/20 23:59 23:59 23:59 Intake Total 410 / 460 1026.21 / 1332.96 1644.47 / 1644.47 Output Total 2400 / 2625 1715 / 1735 40 / 40 Balance -1990 / -2165 -688.79 / -402.04 1604.47 / 1604.47 General: Non-Cooperative Lungs: Diminished Cardiovascular: Tachycardic Abdomen: Soft, Non Tender, Non-Distended Skin: No rashes Microbiology Past 72 Hours 05/15/20 12:05 Blood Culture (Wb) - Anticubital Left Blood Culture - Final No growth in 5 days. 05/15/20 11:55 Blood Culture (Wb) - Anticubital Right Blood Culture - Final No growth in 5 days. 05/16/20 04:00 Urine, Clean Catch Urine Culture - Final Culture exhibits no growth. Laboratory Results 05/20/20 04:00: WBC Cancelled, Corrected WBC Cancelled, RBC Cancelled, Hgb Cancelled, Hct Cancelled, MCV Cancelled, MCH Cancelled, MCHC Cancelled, RDW Std Deviation Cancelled, RDW Coeff of Jeanne Cancelled, Plt Count Cancelled, MPV Cancelled, Diff Path Review Cancelled 05/20/20 04:00: Sodium Cancelled, Potassium Cancelled, Chloride Cancelled, Carbon Dioxide Cancelled, Anion Gap Cancelled, BUN Cancelled, Creatinine Cancelled, Estim Creat Clear Calc Cancelled, Est GFR (MDRD) Af Amer Cancelled, Est GFR (MDRD) Non-Af Cancelled, BUN/Creatinine Ratio Cancelled, Glucose Cancelled, Calcium Cancelled, Total Bilirubin Cancelled, AST Cancelled, ALT Cancelled, Alkaline Phosphatase Cancelled, Total Protein Cancelled, Albumin Cancelled, Globulin Cancelled, Albumin/Globulin Ratio Cancelled 05/20/20 05:15: WBC 20.7 H, RBC 2.81 L, Hgb 8.8 L, Hct 29.3 L, MCV 104.3 H D, MCH 31.3, MCHC 30.0 L D, RDW Std Deviation 61.0 H, RDW Coeff of Jeanne 15.9 H, Plt Count 361, MPV 9.6 05/20/20 05:15: Sodium 141, Potassium 5.4 H, Chloride 110 H, Carbon Dioxide 21.0, Anion Gap 10, BUN 81 H, Creatinine 3.49 H, Estim Creat Clear Calc 16.05, Est GFR (MDRD) Af Amer 22 L, Est GFR (MDRD) Non-Af 18 L, BUN/Creatinine Ratio 23.2 H, Glucose 143 H, Calcium 8.1 L, Total Bilirubin 0.80, AST 66 H, ALT 69 H, Alkaline Phosphatase 106, Total Protein 6.8, Albumin 2.2 L, Globulin 4.6 H, Albumin/Globulin Ratio 0.5 L 05/20/20 10:15: Procalcitonin 2.73 H Current Medications Acetaminophen (Acetaminophen 325 Mg Tablet) 650 mg PO Q6H PRN PRN PRN Reason: Pain Score 1-10/Temp > 100.7 F Last Admin: 05/15/20 20:44 Dose: 650 mg Documented by: Acetaminophen (Acetaminophen 650 Mg/20 Ml Udc) 650 mg GT Q6H PRN PRN PRN Reason: Pain Score 1-10/Temp > 100.7 F Last Admin: 05/20/20 01:49 Dose: 650 mg Documented by: Albuterol Sulfate (Albuterol Sulfate 8 Gm Inhaler (60 Puffs)) 2 puff INHALATION Q4H PRN PRN PRN Reason: Shortness of breath, wheezing Albuterol/Ipratropium (Ipratropium/Albuterol Sulfate 3 Ml Ampul.Neb) 3 ml INHALATION Q4HWA.RT GIANNA Last Admin: 05/20/20 14:46 Dose: 3 ml Documented by: Amiodarone HCl (Amiodarone 200 Mg Tablet) 200 mg GT DAILY ON [facility] Last Admin: 05/20/20 10:10 Dose: 200 mg Documented by: Apixaban (Apixaban 5 Mg Tablet) 5 mg GT BID [facility] Last Admin: 05/20/20 10:10 Dose: 5 mg Documented by: Aspirin (Aspirin 81 Mg Tab.Chew) 81 mg GT DAILY@0800 [facility] Last Admin: 05/20/20 10:09 Dose: 81 mg Documented by: Chlorhexidine Gluconate (Chlorhexidine 15 Ml) 15 ml PO BID [facility] Last Admin: 05/20/20 10:09 Dose: 15 ml Documented by: Dexamethasone Sodium Phosphate (Dexamethasone 10 Mg/Ml Vial) 6 mg IV DAILY [facility] Stop: 05/25/20 10:01 Last Admin: 05/20/20 10:08 Dose: 6 mg Documented by: Propofol (Diprivan) 1,000 mg in 100 mls @ 4.092 mls/hr CONT INF .Q12H [facility]; Protocol Last Titration: 05/20/20 14:52 Dose: 10 mcg/kg/min, 4.1 mls/hr Documented by: Fentanyl Citrate 1,000 mcg/ (Sodium Chloride) 100 mls @ 5 mls/hr CONT INF .Q20H [facility]; Protocol Last Titration: 05/20/20 09:37 Dose: 75 mcg/hr, 7.5 mls/hr Documented by: Enteral Nutritional Formula (Vital Af 1.2 Colton Liquid) 1,000 mls @ 60 mls/hr GT .[id number] [facility] Last Admin: 05/20/20 06:15 Dose: Not Given Documented by: Norepinephrine Bitartrate 8 mg (/ Sodium Chloride) 250 mls @ 9.375 mls/hr CONT INF .[id number] [facility]; Protocol Last Titration: 05/20/20 15:01 Dose: 10 mcg/min, 18.8 mls/hr Documented by: Famotidine 20 mg/ Sodium (Chloride) 10 mls @ 300 mls/hr IV DAILY [facility] Metoprolol Tartrate (Metoprolol Tartrate 25 Mg Tablet) 25 mg GT DAILY [facility] Last Admin: 05/20/20 08:08 Dose: Not Given Documented by: Ondansetron HCl (Ondansetron 4 Mg/2 Ml Vial) 4 mg IV Q8H PRN PRN PRN Reason: NAUSEA/VOMITING Rosuvastatin Calcium (Rosuvastatin Calcium 10 Mg Tablet) 10 mg GT QHS [facility] Last Admin: 05/19/20 20:51 Dose: 10 mg Documented by: Senna/Docusate Sodium (Senna/Docusate Sodium 1 Tablet) 2 tablet GT BID [facility] Last Admin: 05/20/20 12:40 Dose: 2 tablet Documented by: Sodium Chloride (0.9% Saline Lock 10 Ml Syringe) 10 - 40 ml IV UD PRN PRN Reason: SALINE FLUSH Last Admin: 05/16/20 15:36 Dose: 10 ml Documented by: Sodium Chloride (0.9% Saline Lock 10 Ml Syringe) 10 - 40 ml IV UD PRN PRN Reason: SALINE FLUSH Medical Necessity - Tobacco Use Smoking Status: Former smoker Tobacco Use: Non-smoker Route of nutrition/ use of supplements: [] Nutritional Intake: [] IV Site: [] Barkley Catheter: [] - Assessment/Plan Antibiotics: [] Assessment/Plan: [] Active and Suspected Problems (Last Updated 05/15/20 @ 16:[address] Carlene Gamboa MD) Acute hypoxemic respiratory failure due to COVID-19 (Acute) Pulmonary edema (Acute) CHF (congestive heart failure) (Acute) Anemia (Acute) On dex and remdesivir. Got plasma. Still high fiO2, now intubated. Now MELISSA, shock. Will stop remdesivir. Start empiric vanc/cefepime, sputum cx pending. Will follow, d/w Dr. Bolivar
--- NOTE | 2020-05-20 17:15 | RAD_ITS ---
STUDY: X-RAY CHEST REASON FOR EXAM: Male, 80 years old. Aspiration. TECHNIQUE: 1 view COMPARISON: Prior chest radiograph of 05/19/2020 FINDINGS: Endotracheal tube remains above the donaldo. The enteric tube extends below the diaphragm; however, the sidehole is near the gastroesophageal junction. Left PICC ends in the distal superior vena cava. Respiratory equipment overlies the central portion of the right lung. The lung tolbert remain well expanded with stable bilateral pulmonary infiltrates that are present throughout the right lung and mostly in the left mid and lower lung zone. Negative for substantial pleural effusion. Normal size heart. Status post prior midline sternotomy. Normal visualized pulmonary arteries. There is atherosclerotic calcification of the aortic arch with tortuosity. There is demineralization of the osseous structures. Normal visualized ribs, clavicles, and shoulders. There is no demonstrated abnormality of the visualized soft tissue structures of the upper abdomen. RAD/Chest 1 View (Portable) IMPRESSION: No substantial change in line or tube placement as described above. Stable bilateral pulmonary infiltrates. Electronically Signed: Riya Iglesias MD at 18:39 EDT , Service support ,
--- NOTE | 2020-05-20 17:42 | RAD_ITS ---
STUDY: X-RAY - ABDOMEN/PELVIS REASON FOR EXAM: Male, 80 years old. OG tube placement TECHNIQUE: COMPARISON: Prior chest radiograph of 05/19/2020 FINDINGS: Stable bilateral pulmonary infiltrates. The enteric tube terminates 8 cm below the hiatus. However, the sidehole remains near the gastroesophageal junction. Unremarkable abdominal bowel gas pattern in the upper abdomen. Normal soft tissue structures. RAD/Abdomen Single View (Portable) IMPRESSION: The enteric tube terminates 8 cm below the hiatus; however, the sidehole remains near the gastroesophageal junction. Electronically Signed: Riya Iglesias MD at 18:41 EDT , Service support ,
[2020-05-20] MEDS: Propofol 10MG/Ml 1,000 MG/100 ML Bottle 6.1 MG CONT INF (18:25)
--- NOTE | 2020-05-20 20:14 | PCM.RX.CS ---
Consult Pharmacy has been consulted to manage selected antiobiotic: Vancomycin Type of Consult: New start Labs: Sodium 141 mmol/L (136-145) 05/20/20 05:15 Potassium 5.4 mmol/L (3.5-5.1) H 05/20/20 05:15 Chloride 110 mmol/L (98-107) H 05/20/20 05:15 Carbon Dioxide 21.0 mmol/L (21.0-32.0) 05/20/20 05:15 Anion Gap 10 (5-15) 05/20/20 05:15 BUN 81 mg/dL (7-18) H 05/20/20 05:15 Creatinine 3.49 mg/dL (0.70-1.30) H 05/20/20 05:15 Est GFR (MDRD) Af Amer 22 mL/min (>60) L 05/20/20 05:15 Est GFR (MDRD) Non-Af 18 mL/min (>60) L 05/20/20 05:15 BUN/Creatinine Ratio 23.2 RATIO (-20) H 05/20/20 05:15 Glucose 143 mg/dL (74-106) H 05/20/20 05:15 Microbiology: Microbiology 05/15/20 12:05 Blood Culture (Wb) - Anticubital Left Blood Culture - Final No growth in 5 days. 05/15/20 11:55 Blood Culture (Wb) - Anticubital Right Blood Culture - Final No growth in 5 days. 05/16/20 04:00 Urine, Clean Catch Urine Culture - Final Culture exhibits no growth. Weight used for dosin kg Estimated Creatinine Clearance: < 20 Goal Trough: 15-20 mcg/mL Pharmacy Plan for Drug Dosing: Vanc 1750mg IV x1, patient in ARF with crcl < 20 ml/min so per policy, will dose based on 05/22 level. Pharmacy Service will continue to monitor and adjust dosing as required. Follow-Up Labs: Trough Vancomycin - 05/22 @ 0600
--- NOTE | 2020-05-20 22:03 | NURSING ---
Dr. Gamboa present in room for initiation of nimbex. 2 twitches of facial nerve with Train of four and BIS 48 while physician present. Pulse ox improving, currently at 89%, respirations 16 and even.
--- NOTE | 2020-05-20 23:10 | NURSING ---
Spoke to patients' , Lilian and notified that the patient is declining. Pulse ox currently 81-82%. Recommended that the family come into the hospital to see him. Lilian stated that they will be in as soon as possible.
--- NOTE | 2020-05-20 23:51 | CPS ---
Pt PEEP increased to +18 per verbal order from Dr. Bolivar
[2020-05-21] VITALS (7 sets, daily range): BP systolic 60–102; BP diastolic 23–57; PULSE 73–75; RESP 16; TEMP 37.9; O2SAT 78–82
--- NOTE | 2020-05-21 01:30 | NURSING ---
EKG changes noted, family called to bedside. Family discussion at this time. Family decided not to do CPR. Dr. Griffith made aware. Pt without vitals at 0132. Verified with Fe Fink RN.
--- NOTE | 2020-05-21 03:47 | NURSING ---
[place] [facility] [place] [facility] will pick him up.
--- NOTE | 2020-05-21 19:21 | PCM.DEATH ---
Preliminary Cause of Acute hypoxic respiratory failure Date of Admission: 05/15/20 Date of : 05/21/20 - Principle Diagnosis Acute hypoxic respiratory failure COVID-19 pneumonia Acute on chronic diastolic CHF Elevated troponin Problem List: Active and Suspected Problems (Last Updated 05/15/20 @ 16:[address] Carlene Gamboa MD) Acute hypoxemic respiratory failure due to COVID-19 (Acute) Pulmonary edema (Acute) CHF (congestive heart failure) (Acute) Anemia (Acute) Hospital Course Mr. Mckeon is a 80-year-old male who presented to the hospital with acute hypoxic respiratory failure secondary to COVID-19 pneumonia. He was recently admitted to an outside hospital where he developed pulmonary embolisms and was started on Eliquis. He was admitted to the outside hospital for bilateral traumatic calcaneal fractures. When he arrived to the hospital he was admitted to the ICU on BiPAP, he was found by EMS to be around 50% on room air on admission. He was started on Decadron as well as IV antibiotics, infectious disease was also consulted and they started him on remdesivir as well as convalescent plasma. His hospital course was complicated by the need for intubation secondary to respiratory decline. Overnight 05/20/2020 to because of respiratory status he was started on Nimbex however he continued to have respiratory decline and his oxygen saturations continued to drop. His family was notified and they came to the hospital and declined CPR after family discussion. Mr. Mckeon at 0132 on 05/21/2020.
== END 2020-05-21 01:32 | DRG 871 ==
LOC: ED 15:14 → ICU 15:37
PROVIDERS: Internal Medicine Critical Care Medicine; Internal Medicine Infectious Disease; Admitting Provider Hospitalist; Emergency Provider Emergency Medicine; PCP Internal Medicine; Visit Provider Internal Medicine
DX: A41.89 Other specified sepsis (principal); U07.1 COVID-19; J12.89 Other viral pneumonia; J96.01 Acute respiratory failure with hypoxia; I50.33 Acute on chronic diastolic (congestive) heart failure; I26.99 Other pulmonary embolism without acute cor pulmonale; N17.0 Acute kidney failure with tubular necrosis; I21.A1 Myocardial infarction type 2; I13.0 Hypertensive heart and chronic kidney disease with heart failure and stage 1 through stage 4 chronic kidney disease, or unspecified chronic kidney disease; J44.0 Chronic obstructive pulmonary disease with (acute) lower respiratory infection; D62 Acute posthemorrhagic anemia; R57.8 Other shock; R65.20 Severe sepsis without septic shock; I25.10 Atherosclerotic heart disease of native coronary artery without angina pectoris; I35.0 Nonrheumatic aortic (valve) stenosis; N18.9 Chronic kidney disease, unspecified; D63.1 Anemia in chronic kidney disease; I48.0 Paroxysmal atrial fibrillation; I27.20 Pulmonary hypertension, unspecified; E78.5 Hyperlipidemia, unspecified; Z95.3 Presence of xenogenic heart valve; Z95.1 Presence of aortocoronary bypass graft; Z79.82 Long term (current) use of aspirin; Z79.01 Long term (current) use of anticoagulants; Z87.891 Personal history of nicotine dependence
CPT/HCPCS: 31500; 31720; 36569; 36600; 71045; 74018; 80053; 81001; 82550; 82803; 83605; 83615; 83735; 83880; 84145; 84478; 84484; 85025; 85027; 85379; 85384; 85610; 85730; 86140; 86900; 86901; 87040; 87070; 87077; 87086; 87186; 87205; 87635; 93005; 94002; 94003; 94640; 97166; 97802; 99251; 99285; 99406; J7040; J7050; J7120; A4216; G0463; J1940; J3010; J3490; U0003